=== PATIENT | female | born 1985 | race Hispanic/Latino ===

== ENCOUNTER 2016-09-29 14:19 | Inpatient (IN) | payer MEDICAID, OTHER ==
[2016-09-29 14:20] VITALS: BMI 26.8
[2016-09-29 15:01] LABS: EOS # 0.2 K/uL (0.0-0.7); MEAN PLATELET VOLUME 9.5 fL (7.2-11.7); NRBC % 0.2 % (0.0-2.0)
[2016-09-29 15:05] LABS: BASO # 0.3 K/uL (0.0-0.2); EOS % 0.5 % (0.0-4.0); HEMATOCRIT 28.8 % (34.0-47.0); LYMPH # 2.9 K/uL (1.0-4.3); LYMPH % 8.4 % (20.0-40.0); MEAN CORPUSCULAR HEMOGLOBIN 32.8 pg (27.0-31.0); MEAN CORPUSCULAR HGB CONC 30.4 g/dL (33.0-37.0); MONO # 1.1 K/uL (0.0-0.8); MONO % 3.2 % (0.0-10.0); RED CELL DISTRIBUTION WIDTH 23.2 % (11.5-14.5)
[2016-09-29 15:09] LABS: CHLORIDE 99 mmol/L (98-107); SODIUM 139 mmol/L (132-148)
[2016-09-29 15:10] LABS: INR 1.6
[2016-09-29 15:11] LABS: MEAN CELL VOLUME 107.7 fL (81.0-99.0); PLATELET COUNT 442 K/uL (130-400)
[2016-09-29 15:12] LABS: ALB/GLOB RATIO 0.7 (1.0-2.1); ALKALINE PHOSPHATASE 134 U/L (38-126); ALT/SGPT 49 U/L (9-52); AST/SGOT 220 U/L (14-36); BILIRUBIN,TOTAL 11.8 mg/dL (0.2-1.3); BLOOD UREA NITROGEN 6 mg/dL (7-17); CARBON DIOXIDE 28 mmol/L (22-30); GFR AFRICAN-AMERICAN > 60; GLUCOSE,RANDOM 86 mg/dL (65-105); TOTAL PROTEIN 7.5 g/dL (6.3-8.3)
[2016-09-29 15:13] LABS: CALCIUM 8.3 mg/dl (8.6-10.4)
[2016-09-29 15:15] LABS: POTASSIUM 4.3 mmol/L (3.6-5.2)
[2016-09-29 15:32] LABS: BASOPHIL 1 % (0-2); NEUTROPHIL 67 % (50-75); TOTAL CELLS COUNTED 100
[2016-09-29 15:34] LABS: LARGE PLATELETS PRESENT
[2016-09-29 15:35] LABS: GIANT PLATELETS PRESENT
[2016-09-29] MEDS ORDERED: cefTRIAXone IV 1 gm in Dextros 50 ML IV ONE (15:35)
--- NOTE | 2016-09-29 15:43 | C.PDOC ---
History Of Present Illness 31 year old female is brought into the ED by her family due to altered mental status and appearing icteric for the past day. Patient was [place] with alcoholic liver [place] 3 [place] ago [place] [facility] [place] was taken to the [place] overnight and left AMA the next morning for a court appearance however she was too stuporous to participate. Patient typically drinks 3/5 rum daily and lost her 10 year old daughter 8 months ago due to her alcohol abuse. 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 Time Seen by Provider: 09/29/16 14:51 Chief Complaint (Nursing): Abdominal Pain History Per: EMS, Family History/Exam Limitations: clinical condition Onset/Duration Of Symptoms: Days Current Symptoms Are (Timing): Still Present Severity: Mild Past Medical History Reviewed: Historical Data, Nursing Documentation, Vital Signs Vital Signs: Last Vital Signs Temp 98 F 09/29/16 20:00 Pulse 105 H 09/29/16 19:36 Resp 16 09/29/16 19:36 BP 136/72 09/29/16 19:36 Pulse Ox 92 L 09/29/16 21:06 - Medical History PMH: Anxiety, Asthma, HTN, Seizures - [facility] Procedures DETOXIFICATION SERVICES FOR SUBSTANCE ABUSE TREATMENT (11/09/15) Family History: States: Unknown Family Hx - Social History Hx Alcohol Use: No Hx Substance Use: No - Immunization History Hx Tetanus Toxoid Vaccination: No Hx Influenza Vaccination: No Hx Pneumococcal Vaccination: No Review Of Systems Review Of Systems: ROS cannot be obtained secondary to pt's inabilty to answer questions. (ROS limited secondary to patient's clinical condition) Physical Exam - Physical Exam Appears: Confused, Other (+Morbidly obese) Skin: Warm, Dry, Jaundice Head: Atraumatic, Normacephalic Eye(s): bilateral: PERRL, EOMI, Scleral Icterus Oral Mucosa: Moist Chest: Symmetrical, No Deformity Cardiovascular: Rhythm Regular, No Murmur Respiratory: Normal Breath Sounds, No Accessory Muscle Use Gastrointestinal/Abdominal: No Tenderness, Distention, No Guarding, No Rebound, Other (+Globus abdomen) Extremity: Normal ROM, Pedal Edema (4/4 pitting edema), No Deformity ED Course And Treatment - Laboratory Results Result Diagrams: 09/29/16 14:58 09/29/16 14:58 Lab Interpretation: Abnormal (tox + benzo's, significant anemia and leukocytosis , and bandemia 20 H) Urine POC: Negative O2 Sat by Pulse Oximetry: 92 (O2 nasal cannula) Pulse Ox Interpretation: Abnormal - Radiology CXR: Interpreted by Me CXR Interpretation: Yes: Other (+ CHF) - Other Rad ct head X-Ray: Read By Radiologist (no acute findings) CT Abd/Pelvis X-Ray: Read By Radiologist (Hepatosplenomegaly. Small right pleural effusion. Mild ascites. Mild nonspecific thickening of gallbladder wall. No calcified gallstones. Minimal anterior wedge compression deformity of the T9 vertebra, age indeterminate.) Progress Note: CT ABD & Pelvis w/contrast, CT Head w/o contrast, EKG, CXR, Blood work, and Urinalysis ordered and reviewed. Patient treated with Enulose, Lasix, Rocephine, and Precedex. Reevaluation Time: 17:31 Reassessment Condition: Unchanged - Physician Consult Information Outcome Of Conversation: 1600: d/w Dr. Cardenas- ICU Consult- agrees with Precedex and hold IV fluids. 1800: d/w Dr. Woods- Medicine Cook Dessert- ok to ICU Medical Decision Making Medical Decision Making: Liver failure/hepatic encephalopathy, Ammonia 66 H, lactulose started, low protein diet, frrequent falls, head CT neg, CT Abd/pelvis with significant hepato/splenomegaly and ascites. Alcohol withdrawal- usually 3 FIFTHS of rum daily, stopped 3 wks ago, LFT's low/ norm, Precedex/Dexmedetomadine started Benzo abuse- h/o same. tox + benzo's (Precedex is NOT a benzo to give + tox for benzo's) Suspect SBP; WBC's 34K, 20 bands, blood cult and Rocephin 2 g IV started CHF: CHF on films, pitting edema of legs, lasix 20 IV, follow diuresis Anemia- macrocytic consider chronic GI bleed- Type and Screen ordered, PPI's Disposition Doctor Will See Patient In The: Hospital Counseled Patient/Family Regarding: Studies Performed, Diagnosis - Disposition Disposition: HOSPITALIZED Disposition Time: 17:00 Condition: SERIOUS - POA Core Measure Indicators: Code Sepsis - Clinical Impression Clinical Impression: Alcohol dependence, Benzodiazepine abuse, Hepatic encephalopathy, CHF ( congestive heart failure), Liver failure, Sepsis, Icterus - Scribe Statement The provider has reviewed the documentation as recorded by the Scribe Ysteena Nasralah. Provider Attestation: All medical record entries made by the Scribe were at my direction and personally dictated by me. I have reviewed the chart and agree that the record accurately reflects my personal performance of the history, physical exam, medical decision making, and the department course for this patient. I have also personally directed, reviewed, and agree with the discharge instructions and disposition.
[2016-09-29] MEDS ORDERED: Sodium Chloride 0.9% 1,000 ML ONE (15:46)
[2016-09-29] MEDS ORDERED: cefTRIAXone IV 1 gm in Dextros 100 ML IVPB ONE (15:46)
--- NOTE | 2016-09-29 16:13 | RAD ---
PROCEDURE: CHEST RADIOGRAPH, 1 VIEW HISTORY: Abdominal pain COMPARISON: None available. FINDINGS: LUNGS: The lungs are clear. PLEURA: No pneumothorax or pleural fluid seen. CARDIOVASCULAR: Normal. OSSEOUS STRUCTURES: No significant abnormalities. VISUALIZED UPPER ABDOMEN: Normal. OTHER FINDINGS: None. IMPRESSION: No active pulmonary disease.
[2016-09-29 16:15] LABS: BILIRUBIN,DIRECT 9.5 mg/dL (0.0-0.4)
[2016-09-29 16:15] LABS: VENOUS BLOOD GAS BASE EXCESS 5.8 mmol/L (0.0-2.0); VENOUS BLOOD GAS PCO2 44 mmHg (40-60); VENOUS BLOOD PH 7.45 (7.32-7.43)
[2016-09-29 16:16] LABS: ALCOHOL SERUM < 10 mg/dl (0-10)
[2016-09-29 16:49] LABS: RBC URINE < 1 /hpf (0-3); URINE BACTERIA RARE (<OCC); URINE BILIRUBIN NEGATIVE (NEGATIVE); URINE BLOOD NEGATIVE (NEGATIVE); URINE COLOR Amber (YELLOW); URINE GLUCOSE (UA) NORMAL (Normal); URINE KETONE NEGATIVE (NEGATIVE); URINE PROTEIN NEGATIVE (NEGATIVE); WBC URINE 4 /hpf (0-5)
[2016-09-29] MEDS: Dexmedetomidine Hydrochloride 200 MCG in Sodium Chloride 0.9% 48 ML IVPB PRN ×2 (16:50→22:30)
[2016-09-29 16:51] LABS: URINE LEUKOCYTE ESTERASE NEGATIVE Leu/uL (Negative)
[2016-09-29] MEDS ORDERED: Iohexol 350mg/ml 100 ML ONE (17:10)
--- NOTE | 2016-09-29 17:18 | CT ---
PROCEDURE: CT HEAD WITHOUT CONTRAST. HISTORY: obtunded, alcoholic, ? SDH/EDH/CVA COMPARISON: None available. TECHNIQUE: Axial computed tomography images were obtained through the head/brain without intravenous contrast. This CT exam was performed using one or more of the following dose reduction techniques: Automated exposure control, adjustment of the mA and/or kV according to patient size, and/or use of iterative reconstruction technique. Radiation dose: Total exam DLP = 863 mGy-cm. FINDINGS: HEMORRHAGE: No intracranial hemorrhage. BRAIN: No mass effect or edema. No atrophy or chronic microvascular ischemic changes. VENTRICLES: Unremarkable. No hydrocephalus. CALVARIUM: Unremarkable. PARANASAL SINUSES: Unremarkable as visualized. No significant inflammatory changes. MASTOID AIR CELLS: Unremarkable as visualized. No inflammatory changes. OTHER FINDINGS: None. IMPRESSION: Normal CT of the Head.
--- NOTE | 2016-09-29 17:29 | CT ---
PROCEDURE: CT Abdomen and Pelvis with contrast HISTORY: alcohol abuse, icteric, ? ascites, ? biliary COMPARISON: None. TECHNIQUE: Contrast dose: 100 mL Visipaque 320 Radiation dose: Total exam DLP = 1199.45 mGy-cm. This CT exam was performed using 1 or more of the following dose reduction techniques: Automated exposure control, adjustment of the mA and/or kV according to patient size, and/or use of iterative reconstruction technique. FINDINGS: LOWER THORAX: Small right pleural effusion. No infiltrate. LIVER: Marked hepatomegaly. The liver measures approximately 33 cm craniocaudal. Diffusely diminished attenuation. No mass. No biliary ductal dilatation. Smooth contour. GALLBLADDER AND BILE DUCTS: Mild nonspecific mural thickening. No calcified gallstones. PANCREAS: Unremarkable. No gross lesion or ductal dilatation. SPLEEN: Splenomegaly. The spleen measures 19.3 cm in greatest dimension. No focal mass. ADRENALS: Unremarkable. No mass. KIDNEYS AND URETERS: Unremarkable. No hydronephrosis. No solid mass. VASCULATURE: Unremarkable. No aortic aneurysm. BOWEL: Unremarkable. No obstruction. No gross mural thickening. APPENDIX: Not identified. No secondary findings to suggest acute appendicitis. PERITONEUM: Mild ascites. LYMPH NODES: Unremarkable. No enlarged lymph nodes. BLADDER: Unremarkable. REPRODUCTIVE: Unremarkable uterus. No adnexal masses. BONES: Minimal anterior wedge compression deformity of the T9 vertebra, age indeterminate. No paraspinous hemorrhage. No bony retropulsion. OTHER FINDINGS: None. IMPRESSION: Hepatosplenomegaly. Small right pleural effusion. Mild ascites. Mild nonspecific thickening of gallbladder wall. No calcified gallstones. Minimal anterior wedge compression deformity of the T9 vertebra, age indeterminate.
[2016-09-29] MEDS: Sodium Chloride 0.9% 1,000 ML IV SCH (17:56)
[2016-09-29] MEDS: Piperacill/Tazo 3.375gm in Dex 50 ML IVPB SCH ×2 (17:56→22:05)
--- NOTE | 2016-09-29 19:05 | CP.PCM.CON ---
History of Present Illness - History of Present Illness History of Present Illness: Patient seen and examined in ER. History obtained form ER physician, family members are very poor historian and they look very anxious, patient is awake and answers some simple questions, but I am not able to understand all she says. As per family she came for detox and they noticed yesterday to be yellow. ros: unable NKDA FH: not relevant for the case PMH: anxiety, asthma, htn as per chart pe: bp 126/72 mmhg, hr 105 bpm, rr 19 bpm, o2 96% on ra, afebrile awake, disoriented, hallucinating, need constant reminding s1. s2 rrr lungs clear bilateral abdomen global, non tender on exam skin icteric neuro exam difficult to do, but able to move all extremities with out difficulty a/p: acute cholecystitis: wbc increased and positive bands, cover with zosyn, spoke to gi, scan of abdomen done, minimal ascitis, elevated bilirrubin level cirrhosis: not previously diagnosis, hepatitis panel encephalopathy: lactulose q4h hydrate gently alcoholism: denies drinking for the past month, give precedex since she is hallucinating and agitated at times urine retention: erwin inserted Past Patient History - Infectious Disease Hx of Infectious Diseases: None - Past Medical History & Family History Past Medical History?: Yes - Past Social History Smoking Status: Never Smoked - CARDIAC Hx Hypertension: Yes - PULMONARY Hx Asthma: Yes - NEUROLOGICAL Hx Seizures: Yes - HEMATOLOGICAL/ONCOLOGICAL Hx Human Immunodeficiency Virus (HIV): No - INTEGUMENTARY Hx Eczema: Yes - MUSCULOSKELETAL/RHEUMATOLOGICAL Hx Falls: No - GASTROINTESTINAL Hx Liver Failure: (liver problems) - GENITOURINARY/GYNECOLOGICAL Hx Sexually Transmitted Disorders: No - PSYCHIATRIC Hx Anxiety: Yes Hx Substance Use: No - SURGICAL HISTORY Hx Surgeries: Yes Hx Orthopedic Surgery: Yes - ANESTHESIA Hx Anesthesia: Yes Hx Anesthesia Reactions: No Hx Malignant Hyperthermia: No Meds Allergies/Adverse Reactions: Allergies Allergy/AdvReac Type Severity Reaction Status Date / Time No Known Allergies Allergy Verified 11/09/15 13:46 - Medications Medications: Current Medications Heparin Sodium (Porcine) (Heparin) 5,000 units SC Q8 [facility] Dexmedetomidine HCl 200 mcg/ (Sodium Chloride) 50 mls @ 4.76 mls/hr IVPB TITR PRN; Protocol; 0.2 MCG/KG/HR PRN Reason: Agitation Last Admin: 09/29/16 16:50 Dose: 4.76 mls/hr Sodium Chloride (Sodium Chloride 0.9%) 1,000 mls @ 75 mls/hr IV .[id number] [facility] Last Admin: 09/29/16 17:56 Dose: 75 mls/hr Piperacillin Sod/Tazobactam Sod (Zosyn 3.375 Gm Iv Premix) 50 mls @ 100 mls/hr IVPB Q6H [facility] Last Admin: 09/29/16 17:56 Dose: 100 mls/hr Lactulose (Enulose) 20 gm PO Q4H [facility] Last Admin: 09/29/16 17:55 Dose: 20 gm Results - Vital Signs Recent Vital Signs: Last Vital Signs Temp 99 F 09/29/16 14:23 Pulse 113 H 09/29/16 16:23 Resp 22 09/29/16 16:23 BP 133/68 09/29/16 16:23 Pulse Ox 92 L 09/29/16 18:01 - Labs Result Diagrams: 09/29/16 14:58 09/29/16 14:58
[2016-09-30] MEDS: Dexmedetomidine Hydrochloride 200 MCG in Sodium Chloride 0.9% 48 ML IVPB PRN ×4 (00:15→17:29)
[2016-09-30] MEDS: Piperacill/Tazo 3.375gm in Dex 50 ML IVPB SCH ×3 (05:55→16:50)
[2016-09-30 07:12] LABS: BASO # 0.3 K/uL (0.0-0.2); BASO % 1.1 % (0.0-2.0); EOS # 0.2 K/uL (0.0-0.7); EOS % 0.8 % (0.0-4.0); HEMATOCRIT 26.1 % (34.0-47.0); LYMPH # 2.9 K/uL (1.0-4.3); LYMPH % 10.2 % (20.0-40.0); MEAN CELL VOLUME 108.5 fL (81.0-99.0); MEAN CORPUSCULAR HEMOGLOBIN 32.9 pg (27.0-31.0); MEAN CORPUSCULAR HGB CONC 30.3 g/dL (33.0-37.0); MEAN PLATELET VOLUME 9.9 fL (7.2-11.7); MONO # 0.7 K/uL (0.0-0.8); MONO % 2.5 % (0.0-10.0); NRBC % 0.2 % (0.0-2.0); PLATELET COUNT 394 K/uL (130-400); RED CELL DISTRIBUTION WIDTH 22.9 % (11.5-14.5); WHITE BLOOD COUNT 28.8 K/uL (4.8-10.8)
[2016-09-30] MEDS: Sodium Chloride 0.9% 1,000 ML IV SCH ×3 (08:06→20:42)
[2016-09-30 08:15] LABS: CHLORIDE 98 mmol/L (98-107)
[2016-09-30 08:16] LABS: POTASSIUM 3.7 mmol/L (3.6-5.2); SODIUM 140 mmol/L (132-148)
[2016-09-30 08:18] LABS: ALB/GLOB RATIO 0.8 (1.0-2.1); ALKALINE PHOSPHATASE 127 U/L (38-126); AST/SGOT 178 U/L (14-36); BILIRUBIN,TOTAL 11.2 mg/dL (0.2-1.3); CARBON DIOXIDE 28 mmol/L (22-30); GFR AFRICAN-AMERICAN > 60; TOTAL PROTEIN 6.4 g/dL (6.3-8.3)
[2016-09-30 08:19] LABS: ALT/SGPT 35 U/L (9-52); BLOOD UREA NITROGEN 9 mg/dL (7-17); CALCIUM 8.1 mg/dl (8.6-10.4); GLUCOSE,RANDOM 88 mg/dL (65-105); MAGNESIUM 1.9 mg/dL (1.6-2.3); PHOSPHOROUS 4.2 mg/dL (2.5-4.5)
[2016-09-30] MEDS ORDERED: Phytonadione 10 mg/ml Inj (Adult) IV STA (09:15)
--- NOTE | 2016-09-30 09:42 | CP.PCM.CON ---
<Mckenna Velasquez - Last Filed: 09/30/16 09:39> History of Present Illness - History of Present Illness History of Present Illness: Gastroenterology Fellow/PGY4 Consult Note 31 year old female with chart review documented history of Alcohol Abuse, Hypertension, Asthma, Anxiety, and possible Seizures presenting with altered mental status. History obtained from chart review and ICU team. At presented patient is obtunded on Precedex and recent Ativan administration due to agitation and restlessness overnight. Lactulose 40mg given with one incontinent stool. She is notes to present with severe leukocytosis, lactic acidosis, and bandemia. ICU team notes recent admission to [facility] [place] with similar presentation but patient left AMA. At present review of systems unable to be completes due to being obtunded. Unknown history of EGD or colonoscopy. Family- unable to obtain, patient obtunded Social-unable to obtain, patient obtunded- chart review- rum 3-4 times daily Surgery-unable to obtain, patient obtunded Review of Systems - Review of Systems Review of Systems: A 12-point review of systems not complete due to being obtunded Past Patient History - Infectious Disease Hx of Infectious Diseases: None - Past Medical History & Family History Past Medical History?: Yes - Past Social History Smoking Status: Never Smoked - CARDIAC Hx Hypertension: Yes - PULMONARY Hx Asthma: Yes - NEUROLOGICAL Hx Seizures: Yes - HEMATOLOGICAL/ONCOLOGICAL Hx Human Immunodeficiency Virus (HIV): No - INTEGUMENTARY Hx Eczema: Yes - MUSCULOSKELETAL/RHEUMATOLOGICAL Hx Falls: No - GASTROINTESTINAL Hx Liver Failure: (liver problems) - GENITOURINARY/GYNECOLOGICAL Hx Sexually Transmitted Disorders: No - PSYCHIATRIC Hx Anxiety: Yes Hx Substance Use: No - SURGICAL HISTORY Hx Surgeries: Yes Hx Orthopedic Surgery: Yes - ANESTHESIA Hx Anesthesia: Yes Hx Anesthesia Reactions: No Hx Malignant Hyperthermia: No Meds Allergies/Adverse Reactions: Allergies Allergy/AdvReac Type Severity Reaction Status Date / Time No Known Allergies Allergy Verified 11/09/15 13:46 - Medications Medications: Current Medications Dexmedetomidine HCl 200 mcg/ (Sodium Chloride) 50 mls @ 4.76 mls/hr IVPB TITR PRN; Protocol; 0.2 MCG/KG/HR PRN Reason: Agitation Last Titration: 09/30/16 07:20 Dose: 0.6 mcg/kg/hr Sodium Chloride (Sodium Chloride 0.9%) 1,000 mls @ 75 mls/hr IV .[id number] [facility] Last Admin: 09/30/16 08:06 Dose: Not Given Piperacillin Sod/Tazobactam Sod (Zosyn 3.375 Gm Iv Premix) 50 mls @ 100 mls/hr IVPB Q6H [facility] Last Admin: 09/30/16 05:55 Dose: 100 mls/hr Vancomycin/Sodium Chloride (Vancocin) 200 mls @ 133.333 mls/hr IVPB Q12H [facility] Stop: 10/05/16 10:01 Acetylcysteine 0.4 gm/ (Dextrose) 202 mls @ 200 mls/hr IV TID [facility] Lactulose (Enulose) 20 gm PO Q4H [facility] Last Admin: 09/30/16 09:09 Dose: Not Given Lactulose (Enulose) 200 gm WI Q4 [facility] Physical Exam - Constitutional Appears: Toxic, Other - Head Exam Head Exam: ATRAUMATIC, NORMOCEPHALIC - Eye Exam Eye Exam: PERRL, Scleral icterus Pupil Exam: PERRL - ENT Exam ENT Exam: Mucous Membranes Dry, Normal Oropharynx - Neck Exam Neck exam: Positive for: Normal Inspection - Respiratory Exam Respiratory Exam: Clear to Auscultation Bilateral. absent: Rales, Rhonchi, Wheezes - Cardiovascular Exam Cardiovascular Exam: RRR, +S1, +S2. absent: Gallop, Rubs - GI/Abdominal Exam GI & Abdominal Exam: Distended, Normal Bowel Sounds, Organomegaly, Soft. absent : Firm, Guarding, Hernia, Rebound Additional comments: hepatosplenomegaly - Extremities Exam Additional comments: 2+ B/L LE pitting edema - Neurological Exam Additional comments: not awake, alert, or oriented - Psychiatric Exam Additional comments: unable to assess, obtunded - Skin Skin Exam: Dry, Intact, Warm Additional comments: jaundice Results - Vital Signs Recent Vital Signs: Last Vital Signs Temp 98.3 F 09/30/16 08:00 Pulse 79 09/30/16 08:44 Resp 30 H 09/30/16 08:44 BP 103/46 L 09/30/16 07:57 Pulse Ox 99 09/30/16 08:44 - Labs Result Diagrams: 09/30/16 07:04 09/30/16 07:04 Labs: Laboratory Results - last 24 hr 09/30/16 07:04 WBC 28.8 H RBC 2.40 L Hgb 7.9 L Hct 26.1 L MCV 108.5 H MCH 32.9 H MCHC 30.3 L RDW 22.9 H Plt Count 394 MPV 9.9 Neut % (Auto) 85.4 H Lymph % (Auto) 10.2 L Ford % (Auto) 2.5 Eos % (Auto) 0.8 Baso % (Auto) 1.1 Neut # 24.6 H Lymph # 2.9 Ford # 0.7 Eos # 0.2 Baso # 0.3 H Sodium 140 Potassium 3.7 Chloride 98 Carbon Dioxide 28 Anion Gap 18 BUN 9 Creatinine 0.6 L Est GFR ( Amer) > 60 Est GFR (Non-Af Amer) > 60 Random Glucose 88 Calcium 8.1 L Phosphorus 4.2 Magnesium 1.9 Total Bilirubin 11.2 H AST 178 H ALT 35 Alkaline Phosphatase 127 H Total Protein 6.4 Albumin 2.8 L Globulin 3.6 Albumin/Globulin Ratio 0.8 L Assessment & Plan - Assessment and Plan (Free Text) Assessment: 31 year old female with chart review documented history of Alcohol Abuse, Hypertension, Asthma, Anxiety, and possible Seizures presenting with altered mental status. History obtained from chart review and ICU team. Active treatment of Alcoholic Hepatitis, sepsis with bandemia, severe leukocytosis, lactic acidosis, and metabolic encephalopathy. ICU team notes recent admission to [facility] [place] with similar presentation but patient left AMA. Unknown history of EGD or colonoscopy. Plan: >MELD 21, DF 53.2 >discussed case with [facility] >in process of assessing for bed availability for transfer- Dr. Schilling- Hepatology fellow -contact: [phone] >ordered Acetylcysteine 400mg IV TID -unclear if esophageal varices, will avoid NG/OG for enteral administration >continue Lactulose WI 200g to achieve 2 bowel movements daily >ordered Ultrasound and Duplex U/S -preliminary results- no ascites, hepatosplenomegaly >on Zosyn >recommend recheck U/A- purulent in [place] >pancultures-blood, urine, sputum >>recommend broad spectrum antibiotics >Steroids not indicated in setting of sepsis >ordered Hepatitis panel, CAROLYN, ASMA, AMA, ceruloplasmin >poor prognosis, critically ill, high risk of acute decompensation and >discussed with [facility] for transfer, at present evaluating bed availability for likely transfer <Aman Silver Y - Last Filed: 09/30/16 10:14> Meds - Medications Medications: Current Medications Dexmedetomidine HCl 200 mcg/ (Sodium Chloride) 50 mls @ 4.76 mls/hr IVPB TITR PRN; Protocol; 0.2 MCG/KG/HR PRN Reason: Agitation Last Titration: 09/30/16 07:20 Dose: 0.6 mcg/kg/hr Sodium Chloride (Sodium Chloride 0.9%) 1,000 mls @ 75 mls/hr IV .[id number] [facility] Last Admin: 09/30/16 08:06 Dose: Not Given Piperacillin Sod/Tazobactam Sod (Zosyn 3.375 Gm Iv Premix) 50 mls @ 100 mls/hr IVPB Q6H [facility] Last Admin: 09/30/16 05:55 Dose: 100 mls/hr Vancomycin/Sodium Chloride (Vancocin) 200 mls @ 133.333 mls/hr IVPB Q12H [facility] Stop: 10/05/16 10:01 Acetylcysteine 0.4 gm/ (Dextrose) 202 mls @ 200 mls/hr IV TID DAKSHA Phytonadione 10 mg/ Sodium (Chloride) 51 mls @ 153 mls/hr IV STAT STA Stop: 09/30/16 10:10 Lactulose (Enulose) 20 gm PO Q4H [facility] Last Admin: 09/30/16 09:09 Dose: Not Given Lactulose (Enulose) 200 gm [place] Q4 DAK[facility] Results - Vital Signs Recent Vital Signs: Last Vital Signs Temp 98.3 F 09/30/16 08:00 Pulse 79 09/30/16 08:44 Resp 30 H 09/30/16 08:44 BP 103/46 L 09/30/16 07:57 Pulse Ox 99 09/30/16 08:44 - Labs Result Diagrams: 09/30/16 07:04 09/30/16 07:04 Labs: Laboratory Results - last 24 hr 09/30/16 07:04 WBC 28.8 H RBC 2.40 L Hgb 7.9 L Hct 26.1 L MCV 108.5 H MCH 32.9 H MCHC 30.3 L RDW 22.9 H Plt Count 394 MPV 9.9 Neut % (Auto) 85.4 H Lymph % (Auto) 10.2 L Ford % (Auto) 2.5 Eos % (Auto) 0.8 Baso % (Auto) 1.1 Neut # 24.6 H Lymph # 2.9 Ford # 0.7 Eos # 0.2 Baso # 0.3 H Sodium 140 Potassium 3.7 Chloride 98 Carbon Dioxide 28 Anion Gap 18 BUN 9 Creatinine 0.6 L Est GFR ( Amer) > 60 Est GFR (Non-Af Amer) > 60 Random Glucose 88 Calcium 8.1 L Phosphorus 4.2 Magnesium 1.9 Total Bilirubin 11.2 H AST 178 H ALT 35 Alkaline Phosphatase 127 H Total Protein 6.4 Albumin 2.8 L Globulin 3.6 Albumin/Globulin Ratio 0.8 L Attending/Attestation - Attestation I have personally seen and examined this patient.: Yes I have fully participated in the care of the patient.: Yes I have reviewed all pertinent clinical information: Yes Notes (Text): 09/30/16 09:58 I have seen and examined patient with GI fellow. Agree with above documentation with the following additions. In brief, this is a 31 year old female with history of HTN, ETOH abuse, asthma, seizure disorder who presents to hospital with altered mental status. Currently patient in ICU critical care , sedated and unable to provide additional information. Further history obtained via chart review, discussion with nursing staff, and patient's family at bedside. She was apparently recently admitted to [facility] [place] for similar presentation and managed for acute ETOH related hepatitis, however she signed out AMA after not being given appropriate pain medication. She was complaining of generalized abdominal pain, there was no reported nausea, vomiting, diarrhea , fever/chills, weight loss. She reportedly consumes hard liquor daily, unclear regarding tylenol or herbal medication use. Unknown prior endoscopic history. ETOH abuse, acute hepatitis with admission MELD of 21 Hepatitis DF > 50 Altered mental status, encephalopathy HTN Asthma Seizure disorder - Patient with clinical features of acute liver failure, remains sedated in critical care - Consultation at tertiary care liver transplant center ([facility]) requested, awaiting decision for potential transfer - [place] culture blood, urine, stool - Would suggest broad spectrum antibiotic therapy and adding Vancomycin - Obtain viral hepatitis, autoimmune panel, and ceruloplasmin level - Suggest NGT placement and beginning enteral tube feeding as early nutritional support has been well shown to decrease mortality - Initiate NAC therapy - Monitor INR - Abdominal US reviewed by me showing patent portal vein, normal caliber CBD, BG wall thickening without cholelithiasis, +hepato/splenomegaly, trace ascites ( not sufficient amount for paracentesis) - Overall prognosis for patient is poor, will continue to monitor clinical course
[2016-09-30] MEDS ORDERED: Phytonadione 10 mg/ml Inj (Adult) IVPB STA (09:48)
[2016-09-30] MEDS ORDERED: Phytonadione 10 MG in Sodium Chloride 0.9% 50 ML IV STA (09:51)
--- NOTE | 2016-09-30 09:55 | US ---
HISTORY: evaluate for cirrhosis, ascites COMPARISON: Comparison is made to the previous CT of the abdomen dated 09/29/2016 TECHNIQUE: Sonographic evaluation of the abdomen. FINDINGS: LIVER: Measures 29.1 cm. Heterogeneous diffuse increased echogenicity of the liver parenchyma. No mass. No intrahepatic bile duct dilatation. GALLBLADDER: Diffuse gallbladder wall thickening is seen. There is a trace pericholecystic fluid. No evidence of gallstones. No sonographic Yeboah's sign elicited during the exam. COMMON BILE DUCT: Measures 2.7 mm. No stones. No dilatation. PANCREAS: The pancreas is not well visualized. RIGHT KIDNEY: Measures 12.7 x 4.8 x 6cm. Normal echogenicity. No calculus, mass, or hydronephrosis. LEFT KIDNEY: Measures 13.5 x 5.4 x 6.1cm. Normal echogenicity. No calculus, mass, or hydronephrosis. SPLEEN: Splenomegaly is also noted measures 17.8 centimeter. AORTA: No aneurysmal dilatation. IVC: Unremarkable. OTHER FINDINGS: Small amount of free fluid in the abdomen. IMPRESSION: Moderate hepato splenomegaly of uncertain etiology. Heterogeneous diffuse increased echogenicity of the liver which could be due to fatty infiltration or other parenchymal disease. Trace/small amount of ascites. Pancreas obscured by overlying bowel gas. Gallbladder wall thickening without evidence of cholelithiasis or definite evidence of acute cholecystitis.
[2016-09-30] MEDS ORDERED: cefTRIAXone IV 1 gm in Dextros 50 ML IVPB SCH (10:00)
[2016-09-30 10:14] LABS: RBC URINE 5 /hpf (0-3); URINE BACTERIA RARE (<OCC); URINE BILIRUBIN 2+ (NEGATIVE); URINE BLOOD NEGATIVE (NEGATIVE); URINE COLOR Amber (YELLOW); URINE GLUCOSE (UA) NORMAL (Normal); URINE KETONE NEGATIVE (NEGATIVE); URINE LEUKOCYTE ESTERASE NEG Leu/uL (Negative); URINE PROTEIN 1+ mg/dL (NEGATIVE); WBC URINE 8 /hpf (0-5)
[2016-09-30] MEDS: Vancomycin 1 gm/NS 200 ml 200 ML IVPB SCH ×2 (10:24→21:00)
[2016-09-30] MEDS: WATER IV SCH ×3 (11:09→17:30)
[2016-09-30] MEDS: ACETYLCYSTEINE IV SCH ×3 (11:09→17:30)
[2016-09-30] MEDS: DEXTROSE 5% IV SCH ×3 (11:09→17:30)
[2016-09-30 11:14] LABS: INR 1.6
[2016-09-30 11:21] LABS: BASOPHIL 1 % (0-2); METAMYELOCYTE 2 % (0-0); MYELOCYTE 2 % (0-0); NEUTROPHIL 68 % (50-75); TOTAL CELLS COUNTED 100
[2016-09-30 11:22] LABS: SPHEROCYTES SLIGHT
--- NOTE | 2016-09-30 15:55 | CP.CCUPN ---
CCU Subjective - Physician Review Events Since Last Encounter (Free Text): 09/30/16 15:39 Patient seen and examined in the intensive care unit. Chart reviewed and previous events noted. 31 year old female with documented history of Alcohol Abuse, Hypertension, Asthma, Anxiety, and possible Seizures presenting with altered mental status. patient is obtunded on Precedex and recent Ativan administration due to agitation and restlessness overnight. No further information available. CCU Objective - Vital Signs / Intake & Output Vital Signs (Last 4 hours): Vital Signs Temp Pulse Resp BP Pulse Ox 09/30/16 14:00 83 31 H 98 09/30/16 13:58 84 33 H 121/52 L 98 09/30/16 13:25 85 31 H 97 09/30/16 13:08 88 36 H 125/64 96 09/30/16 13:00 88 33 H 99 09/30/16 12:00 98.5 F 84 35 H 97 09/30/16 11:58 85 38 H 98/43 L 99 Intake and Output (Last 8hrs): Intake & Output 09/30/16 09/30/16 09/30/16 06:59 14:59 22:59 Intake Total 734.4 1492.8 Output Total 400 215 Balance 334.4 1277.8 Weight 211 lb 4.8 oz Intake: Intake, IV Amount 734.4 1392.8 Right Forearm 159.4 92.8 Left Antecubital 575 600 Left Hand 450 Right Hand 250 Oral 100 Output: Urine 400 215 Urethral (Hull) 400 215 Other: # Bowel Movements 1 - Physical Exam Head: Positive for: Atraumatic, Normocephalic Conjunctiva: Positive for: Icteric Mouth: Positive for: Moist Mucous Membranes Neck: Positive for: Trachea Midline Respiratory/Chest: Positive for: Clear to Auscultation Cardiovascular: Positive for: Regular Rate and Rhythm Abdomen: Positive for: Distention, Normal Bowel Sounds Lower Extremity: Positive for: Edema Psychiatric: Positive for: Other (Sedated on Precedex) - Medications Active Medications: Active Medications Generic Name Dose Route Start Last Admin Trade Name Freq PRN Reason Stop Dose Admin Dexmedetomidine HCl 200 mcg/ 50 mls @ 4.76 mls/hr 09/29/16 16:30 09/30/16 11:07 Sodium Chloride IVPB 7.14 mls/hr TITR PRN Administration Agitation Protocol 0.2 MCG/KG/HR Sodium Chloride 1,000 mls @ 75 mls/hr 09/29/16 17:00 09/30/16 11:08 Sodium Chloride 0.9% IV 75 mls/hr .[id number] DAKSHA Administration Piperacillin Sod/Tazobactam Sod 50 mls @ 100 mls/hr 09/29/16 17:00 09/30/16 11: 50 Zosyn 3.375 Gm Iv Premix IVPB 100 mls/hr Q6H DAKSHA Administration Vancomycin/Sodium Chloride 200 mls @ 133.333 mls/hr 09/30/16 10:00 09/30/16 10: 24 Vancocin IVPB 10/05/16 10:01 133.333 mls/hr Q12H DAKSHA Administration Acetylcysteine 0.4 gm/ 202 mls @ 200 mls/hr 09/30/16 10:00 09/30/16 13:55 Dextrose IV 200 mls/hr TID DAKSHA Administration Lactulose 20 gm 09/29/16 17:00 09/30/16 12:35 Enulose PO 20 gm Q4H DAKSHA Administration Lactulose 200 gm 09/30/16 12:00 09/30/16 12:35 Enulose AR Not Given Q4 DAKSHA - Patient Studies Lab Studies: Microbiology Studies 09/29/16 Unknown Urine Culture - Preliminary Urine,Random Gram Negative Pato Lab Studies 09/30/16 09/30/16 09/30/16 Range/Units 11:00 10:00 09:27 WBC (4.8-10.8) K/uL RBC (3.80-5.20) Mil/uL Hgb (11.0-16.0) g/dL Hct (34.0-47.0) % MCV (81.0-99.0) fL MCH (27.0-31.0) pg MCHC (33.0-37.0) g/dL RDW (11.5-14.5) % Plt Count (130-400) K/uL MPV (7.2-11.7) fL Neut % (Auto) (50.0-75.0) % Lymph % (Auto) (20.0-40.0) % Cross % (Auto) (0.0-10.0) % Eos % (Auto) (0.0-4.0) % Baso % (Auto) (0.0-2.0) % Neut # (1.8-7.0) K/uL Lymph # (1.0-4.3) K/uL Cross # (0.0-0.8) K/uL Eos # (0.0-0.7) K/uL Baso # (0.0-0.2) K/uL Neutrophils % (Manual) (50-75) % Band Neutrophils % (0-2) % Lymphocytes % (Manual) (20-40) % Monocytes % (Manual) (0-10) % Basophils % (Manual) (0-2) % Metamyelocytes % (0-0) % Myelocytes % (0-0) % Platelet Estimate (NORMAL) Polychromasia Hypochromasia (manual) Poikilocytosis (manual Anisocytosis (manual) Microcytosis (manual) Macrocytosis (manual) Spherocytes Target Cells Ovalocytes PT 18.5 H (9.7-12.2) SECONDS INR 1.6 Sodium (132-148) mmol/L Potassium (3.6-5.2) mmol/L Chloride (98-107) mmol/L Carbon Dioxide (22-30) mmol/L Anion Gap (10-20) BUN (7-17) mg/dL Creatinine (0.7-1.2) MG/DL Est GFR ( Amer) Est GFR (Non-Af Amer) Random Glucose (65-105) mg/dL Calcium (8.6-10.4) mg/dl Phosphorus (2.5-4.5) mg/dL Magnesium (1.6-2.3) mg/dL Total Bilirubin (0.2-1.3) mg/dL AST (14-36) U/L ALT (9-52) U/L Alkaline Phosphatase (38-126) U/L Total Protein (6.3-8.3) g/dL Albumin (3.5-5.0) g/dL Globulin (2.2-3.9) gm/dL Albumin/Globulin Ratio (1.0-2.1) Procalcitonin 0.59 H (0.19-0.49) NG/ML Urine Color Catia (YELLOW) Urine Clarity Hazy (Clear) Urine pH 5.0 (5.0-8.0) Ur Specific [place] 1.038 H (1.003-1.030) Urine Protein 1+ H (NEGATIVE) mg/dL Urine Glucose (UA) Normal (Normal) mg/dL Urine Ketones Negative (NEGATIVE) mg/dL Urine Blood Negative (NEGATIVE) Urine Nitrate Negative (NEGATIVE) Urine Bilirubin 2+ H (NEGATIVE) Urine Urobilinogen 4.0 H (0.2-1.0) mg/dL Ur Leukocyte Esterase Neg (Negative) Mariela/uL Urine WBC (Auto) 8 H (0-5) /hpf Urine RBC (Auto) 5 H (0-3) /hpf Ur Squamous Epith Cells < 1 (0-5) /hpf Urine Bacteria Rare (<OCC) Hepatitis A IgM Ab (NEGATIVE) Hep Bs Antigen (NEGATIVE) Hep B Core IgM Ab (NEGATIVE) Hepatitis C Antibody (NEGATIVE) 09/30/16 09/30/16 Range/Units 09:10 07:04 WBC 28.8 H (4.8-10.8) K/uL RBC 2.40 L (3.80-5.20) Mil/uL Hgb 7.9 L (11.0-16.0) g/dL Hct 26.1 L (34.0-47.0) % MCV 108.5 H (81.0-99.0) fL MCH 32.9 H (27.0-31.0) pg MCHC 30.3 L (33.0-37.0) g/dL RDW 22.9 H (11.5-14.5) % Plt Count 394 (130-400) K/uL MPV 9.9 (7.2-11.7) fL Neut % (Auto) 85.4 H (50.0-75.0) % Lymph % (Auto) 10.2 L (20.0-40.0) % Cross % (Auto) 2.5 (0.0-10.0) % Eos % (Auto) 0.8 (0.0-4.0) % Baso % (Auto) 1.1 (0.0-2.0) % Neut # 24.6 H (1.8-7.0) K/uL Lymph # 2.9 (1.0-4.3) K/uL Cross # 0.7 (0.0-0.8) K/uL Eos # 0.2 (0.0-0.7) K/uL Baso # 0.3 H (0.0-0.2) K/uL Neutrophils % (Manual) 68 (50-75) % Band Neutrophils % 18 H* (0-2) % Lymphocytes % (Manual) 6 L (20-40) % Monocytes % (Manual) 3 (0-10) % Basophils % (Manual) 1 (0-2) % Metamyelocytes % 2 H (0-0) % Myelocytes % 2 H (0-0) % Platelet Estimate Normal (NORMAL) Polychromasia Slight Hypochromasia (manual) Slight Poikilocytosis (manual Slight Anisocytosis (manual) Moderate Microcytosis (manual) Slight Macrocytosis (manual) Slight Spherocytes Slight Target Cells Slight Ovalocytes Slight PT (9.7-12.2) SECONDS INR Sodium 140 (132-148) mmol/L Potassium 3.7 (3.6-5.2) mmol/L Chloride 98 (98-107) mmol/L Carbon Dioxide 28 (22-30) mmol/L Anion Gap 18 (10-20) BUN 9 (7-17) mg/dL Creatinine 0.6 L (0.7-1.2) MG/DL Est GFR ( Amer) > 60 Est GFR (Non-Af Amer) > 60 Random Glucose 88 (65-105) mg/dL Calcium 8.1 L (8.6-10.4) mg/dl Phosphorus 4.2 (2.5-4.5) mg/dL Magnesium 1.9 (1.6-2.3) mg/dL Total Bilirubin 11.2 H (0.2-1.3) mg/dL AST 178 H (14-36) U/L ALT 35 (9-52) U/L Alkaline Phosphatase 127 H (38-126) U/L Total Protein 6.4 (6.3-8.3) g/dL Albumin 2.8 L (3.5-5.0) g/dL Globulin 3.6 (2.2-3.9) gm/dL Albumin/Globulin Ratio 0.8 L (1.0-2.1) Procalcitonin (0.19-0.49) NG/ML Urine Color (YELLOW) Urine Clarity (Clear) Urine pH (5.0-8.0) Ur Specific [place] (1.003-1.030) Urine Protein (NEGATIVE) mg/dL Urine Glucose (UA) (Normal) mg/dL Urine Ketones (NEGATIVE) mg/dL Urine Blood (NEGATIVE) Urine Nitrate (NEGATIVE) Urine Bilirubin (NEGATIVE) Urine Urobilinogen (0.2-1.0) mg/dL Ur Leukocyte Esterase (Negative) Mariela/uL Urine WBC (Auto) (0-5) /hpf Urine RBC (Auto) (0-3) /hpf Ur Squamous Epith Cells (0-5) /hpf Urine Bacteria (<OCC) Hepatitis A IgM Ab Negative (NEGATIVE) Hep Bs Antigen Negative (NEGATIVE) Hep B Core IgM Ab Negative (NEGATIVE) Hepatitis C Antibody Negative (NEGATIVE) Laboratory Results - last 24 hr 09/30/16 09/30/16 09/30/16 07:04 09:10 09:27 WBC 28.8 H RBC 2.40 L Hgb 7.9 L Hct 26.1 L MCV 108.5 H MCH 32.9 H MCHC 30.3 L RDW 22.9 H Plt Count 394 MPV 9.9 Neut % (Auto) 85.4 H Lymph % (Auto) 10.2 L Cross % (Auto) 2.5 Eos % (Auto) 0.8 Baso % (Auto) 1.1 Neut # 24.6 H Lymph # 2.9 Cross # 0.7 Eos # 0.2 Baso # 0.3 H Neutrophils % (Manual) 68 Band Neutrophils % 18 H* Lymphocytes % (Manual) 6 L Monocytes % (Manual) 3 Basophils % (Manual) 1 Metamyelocytes % 2 H Myelocytes % 2 H Platelet Estimate Normal Polychromasia Slight Hypochromasia (manual) Slight Poikilocytosis (manual Slight Anisocytosis (manual) Moderate Microcytosis (manual) Slight Macrocytosis (manual) Slight Spherocytes Slight Target Cells Slight Ovalocytes Slight PT INR Sodium 140 Potassium 3.7 Chloride 98 Carbon Dioxide 28 Anion Gap 18 BUN 9 Creatinine 0.6 L Est GFR ( Amer) > 60 Est GFR (Non-Af Amer) > 60 Random Glucose 88 Calcium 8.1 L Phosphorus 4.2 Magnesium 1.9 Total Bilirubin 11.2 H AST 178 H ALT 35 Alkaline Phosphatase 127 H Total Protein 6.4 Albumin 2.8 L Globulin 3.6 Albumin/Globulin Ratio 0.8 L Procalcitonin 0.59 H Urine Color Urine Clarity Urine pH Ur Specific [place] Urine Protein Urine Glucose (UA) Urine Ketones Urine Blood Urine Nitrate Urine Bilirubin Urine Urobilinogen Ur Leukocyte Esterase Urine WBC (Auto) Urine RBC (Auto) Ur Squamous Epith Cells Urine Bacteria Hepatitis A IgM Ab Negative Hep Bs Antigen Negative Hep B Core IgM Ab Negative Hepatitis C Antibody Negative 09/30/16 09/30/16 10:00 11:00 WBC RBC Hgb Hct MCV MCH MCHC RDW Plt Count MPV Neut % (Auto) Lymph % (Auto) Cross % (Auto) Eos % (Auto) Baso % (Auto) Neut # Lymph # Cross # Eos # Baso # Neutrophils % (Manual) Band Neutrophils % Lymphocytes % (Manual) Monocytes % (Manual) Basophils % (Manual) Metamyelocytes % Myelocytes % Platelet Estimate Polychromasia Hypochromasia (manual) Poikilocytosis (manual Anisocytosis (manual) Microcytosis (manual) Macrocytosis (manual) Spherocytes Target Cells Ovalocytes PT 18.5 H INR 1.6 Sodium Potassium Chloride Carbon Dioxide Anion Gap BUN Creatinine Est GFR ( Amer) Est GFR (Non-Af Amer) Random Glucose Calcium Phosphorus Magnesium Total Bilirubin AST ALT Alkaline Phosphatase Total Protein Albumin Globulin Albumin/Globulin Ratio Procalcitonin Urine Color Catia Urine Clarity Hazy Urine pH 5.0 Ur Specific [place] 1.038 H Urine Protein 1+ H Urine Glucose (UA) Normal Urine Ketones Negative Urine Blood Negative Urine Nitrate Negative Urine Bilirubin 2+ H Urine Urobilinogen 4.0 H Ur Leukocyte Esterase Neg Urine WBC (Auto) 8 H Urine RBC (Auto) 5 H Ur Squamous Epith Cells < 1 Urine Bacteria Rare Hepatitis A IgM Ab Hep Bs Antigen Hep B Core IgM Ab Hepatitis C Antibody EKG/Cardiology Studies: Cardiology / EKG Studies 09/29/16 17:08 EKG [ELECTROCARDIOGRAM] Stat Comment: ED 6 Mode Of Transportation: STRETCHER Reason For Exam: adm Review of Systems - Review of Systems Systems not reviewed;Unavailable: Other (Sedated on Precedex) Assessment/Plan (1) Liver failure Current Visit: Yes Status: Acute Comment: Patient with clinical features of acute liver failure, remains sedated in critical care Consultation at [facility] ([facility]) requested, awaiting decision for potential transfer Broad-spectrum antibiotics Casas cultures Hepatitis profile Prognosis poor (2) Alcohol dependence Current Visit: Yes Status: Acute (3) Hepatic encephalopathy Current Visit: Yes Status: Acute (4) Sepsis Current Visit: Yes Status: Acute
[2016-10-01] MEDS: Sodium Chloride 0.9% 1,000 ML IV SCH ×2 (01:08→09:00)
[2016-10-01] MEDS: Dexmedetomidine Hydrochloride 200 MCG in Sodium Chloride 0.9% 48 ML IVPB PRN ×2 (03:15→06:00)
[2016-10-01] MEDS: Piperacill/Tazo 3.375gm in Dex 50 ML IVPB SCH ×2 (04:05)
[2016-10-01 06:41] LABS: BASO # 0.3 K/uL (0.0-0.2); BASO % 0.9 % (0.0-2.0); EOS # 0.3 K/uL (0.0-0.7); HEMATOCRIT 27.2 % (34.0-47.0); LYMPH # 2.1 K/uL (1.0-4.3); LYMPH % 6.7 % (20.0-40.0); MEAN CELL VOLUME 108.9 fL (81.0-99.0); MEAN CORPUSCULAR HEMOGLOBIN 32.6 pg (27.0-31.0); MEAN PLATELET VOLUME 9.6 fL (7.2-11.7); MONO # 1.2 K/uL (0.0-0.8); MONO % 3.9 % (0.0-10.0); NRBC % 0.1 % (0.0-2.0); PLATELET COUNT 432 K/uL (130-400); RED CELL DISTRIBUTION WIDTH 22.5 % (11.5-14.5); WHITE BLOOD COUNT 31.6 K/uL (4.8-10.8)
[2016-10-01 06:51] LABS: CHLORIDE 107 mmol/L (98-107)
[2016-10-01 06:52] LABS: POTASSIUM 3.5 mmol/L (3.6-5.2); SODIUM 145 mmol/L (132-148)
[2016-10-01 06:54] LABS: ALB/GLOB RATIO 0.7 (1.0-2.1); ALKALINE PHOSPHATASE 121 U/L (38-126); ALT/SGPT 50 U/L (9-52); AST/SGOT 204 U/L (14-36); BILIRUBIN,TOTAL 12.4 mg/dL (0.2-1.3); BLOOD UREA NITROGEN 11 mg/dL (7-17); CARBON DIOXIDE 27 mmol/L (22-30); GFR AFRICAN-AMERICAN > 60; GLUCOSE,RANDOM 107 mg/dL (65-105); PHOSPHOROUS 2.8 mg/dL (2.5-4.5); TOTAL PROTEIN 6.8 g/dL (6.3-8.3)
[2016-10-01 06:55] LABS: CALCIUM 8.1 mg/dl (8.6-10.4); MAGNESIUM 2.1 mg/dL (1.6-2.3)
--- NOTE | 2016-10-01 07:13 | CP.PCM.PN ---
<Mckenna Velasquez - Last Filed: 10/01/16 08:41> Subjective - Date & Time of Evaluation Date of Evaluation: 10/01/16 Time of Evaluation: 07:08 - Subjective Subjective: Gastroenterology Fellow/PGY4 Progress Note Patient with improving mental status. Oriented to person only but attempting immediate response to all questioning. Nursing reports less agitation withPrecedex titrated to very low dose overnight. Patient received three doses of Lactulose in last 24 hours with reported three bowel movements. A 12-point review of systems limited due to altered mental status. Objective - Vital Signs/Intake and Output Vital Signs (last 24 hours): Temp Pulse Resp BP Pulse Ox 98.9 F 89 42 H 114/55 L 96 10/01/16 04:00 10/01/16 05:00 10/01/16 05:00 10/01/16 04:58 10/01/16 05:00 Intake and Output: 10/01/16 10/01/16 06:59 18:59 Intake Total 1371.9 Output Total 320 Balance 1051.9 - Medications Medications: Current Medications Dexmedetomidine HCl 200 mcg/ (Sodium Chloride) 50 mls @ 4.76 mls/hr IVPB TITR PRN; Protocol; 0.2 MCG/KG/HR PRN Reason: Agitation Last Admin: 10/01/16 03:15 Dose: 7.14 mls/hr Sodium Chloride (Sodium Chloride 0.9%) 1,000 mls @ 75 mls/hr IV .[id number] [facility] Last Admin: 10/01/16 01:08 Dose: 75 mls/hr Piperacillin Sod/Tazobactam Sod (Zosyn 3.375 Gm Iv Premix) 50 mls @ 100 mls/hr IVPB Q6H [facility] Last Admin: 10/01/16 04:05 Dose: 100 mls/hr Vancomycin/Sodium Chloride (Vancocin) 200 mls @ 133.333 mls/hr IVPB Q12H [facility] Stop: 10/05/16 10:01 Last Admin: 09/30/16 21:00 Dose: 133.333 mls/hr Acetylcysteine 0.4 gm/ (Dextrose) 202 mls @ 200 mls/hr IV TID [facility] Last Admin: 09/30/16 17:30 Dose: 200 mls/hr Lactulose (Enulose) 20 gm PO Q4H [facility] Last Admin: 10/01/16 04:04 Dose: 20 gm Lactulose (Enulose) 200 gm AK Q4 [facility] Last Admin: 10/01/16 04:06 Dose: Not Given - Labs Labs: 10/01/16 06:37 10/01/16 06:37 PT 18.5 SECONDS (9.7-12.2) H 09/30/16 11:00 INR 1.6 09/30/16 11:00 APTT 43 SECONDS (21-34) H 09/29/16 14:58 - Constitutional Appears: Toxic, No Acute Distress - Head Exam Head Exam: ATRAUMATIC, NORMOCEPHALIC - Eye Exam Eye Exam: EOMI, PERRL, Scleral icterus Pupil Exam: PERRL. absent: Miosis, Mydriatic - ENT Exam ENT Exam: Mucous Membranes Moist, Normal Oropharynx - Neck Exam Neck Exam: Normal Inspection - Respiratory Exam Respiratory Exam: Clear to Ausculation Bilateral. absent: Rales, Rhonchi, Wheezes - Cardiovascular Exam Cardiovascular Exam: RRR, +S1, +S2. absent: Gallop, Rubs - GI/Abdominal Exam GI & Abdominal Exam: Distended, Soft, Tenderness, Normal Bowel Sounds, Organomegaly. absent: Guarding, Rigid, Rebound - Extremities Exam Additional comments: 2+ B/L LE pitting edema - Neurological Exam Neurological Exam: Altered, Awake Additional comments: oriented to person only, not to place or time - Psychiatric Exam Psychiatric exam: Agitated, Flat Affect - Skin Skin Exam: Dry, Intact, Warm Additional comments: jaundice Assessment and Plan - Assessment and Plan (Free Text) Assessment: 31 year old female with chart review documented history of Alcohol Abuse, Hypertension, Asthma, Anxiety, and possible Seizures presenting with altered mental status. History obtained from chart review and ICU team. Active treatment of Alcoholic Hepatitis, sepsis with bandemia, severe leukocytosis, lactic acidosis, and metabolic encephalopathy. ICU team notes recent admission to [facility] with similar presentation but patient left AMA. Unknown history of EGD or colonoscopy. Plan: >MELD on admission 21, today- pending INR >DF on admission 53.2, today- pending INR >accepted to [facility]-awaiting transition to step down bed for transfer -contact: Dr. Schilling- Hepatology fellow [phone] >continue Acetylcysteine 400mg IV TID -decrease risk of severe infection and mortality >continue Lactulose PO or AK to achieve 2 bowel movements daily >Ultrasound- no ascites, hepatosplenomegaly -Duplex U/S requested to document patency of portal system >negative Hepatitis panel >pending CAROLYN, ASMA, AMA, ceruloplasmin >recommend initiate enteral feeding to decrease mortality >cultures: urine-GNR UTI, Blood- no growth 24 hours >on vancomycin/zosyn >poor prognosis, critically ill, high risk for decompensation, morbidity, and mortality >accepted to [facility], Hepatology fellow aware of initiation for step down transfer <Aman Silver - Last Filed: 10/01/16 09:34> Objective - Vital Signs/Intake and Output Vital Signs (last 24 hours): Temp Pulse Resp BP Pulse Ox 99.3 F 93 H 26 H 117/63 96 10/01/16 08:00 10/01/16 08:00 10/01/16 08:00 10/01/16 08:00 10/01/16 08:00 Intake and Output: 10/01/16 10/01/16 06:59 18:59 Intake Total 1461.2 171.5 Output Total 820 40 Balance 641.2 131.5 - Medications Medications: Current Medications Dexmedetomidine HCl 200 mcg/ (Sodium Chloride) 50 mls @ 4.76 mls/hr IVPB TITR PRN; Protocol; 0.2 MCG/KG/HR PRN Reason: Agitation Last Titration: 10/01/16 08:30 Dose: 0 mcg/kg/hr Sodium Chloride (Sodium Chloride 0.9%) 1,000 mls @ 75 mls/hr IV .[id number] [facility] Last Admin: 10/01/16 09:00 Dose: Not Given Vancomycin/Sodium Chloride (Vancocin) 200 mls @ 133.333 mls/hr IVPB Q12H [facility] Stop: 10/05/16 10:01 Last Admin: 09/30/16 21:00 Dose: 133.333 mls/hr Acetylcysteine 0.4 gm/ (Dextrose) 202 mls @ 200 mls/hr IV TID [facility] Last Admin: 09/30/16 17:30 Dose: 200 mls/hr Imipenem/Cilastatin Sodium 500 (mg/ Sodium Chloride) 100 mls @ 100 mls/hr IVPB Q6H [facility] Potassium Chloride (Potassium Chloride 10 Meq/100 Ml) 100 mls @ 100 mls/hr IVPB ONCE ONE Stop: 10/01/16 09:59 Last Admin: 10/01/16 09:11 Dose: 100 mls/hr Lactulose (Enulose) 20 gm PO Q4H DAKSHA Last Admin: 10/01/16 08:12 Dose: 20 gm Lactulose (Enulose) 200 gm AK Q4 DAKSHA Last Admin: 10/01/16 08:30 Dose: Not Given Lorazepam (Ativan) 0.5 mg IVP Q3H PRN PRN Reason: Anxiety - Labs Labs: 10/01/16 06:37 10/01/16 06:37 PT 18.5 SECONDS (9.7-12.2) H 09/30/16 11:00 INR 1.6 09/30/16 11:00 APTT 43 SECONDS (21-34) H 09/29/16 14:58 Attending/Attestation - Attestation I have personally seen and examined this patient.: Yes I have fully participated in the care of the patient.: Yes I have reviewed all pertinent clinical information, including history, physical exam and plan: Yes Notes (Text): 10/01/16 09:25 I have seen and examined patient with GI fellow. She remains in ICU critical care on precedex sedation which is being tapered off. She is drowsy and lethargic, though able to respond to simple commands. As per nursing staff, no reported abdominal pain, nausea, vomiting, fever/chills. She had three bowel movements over past 24 hours. Review of vitals from today show tachypnea. ETOH abuse HTN Asthma Acute liver failure, admission MELD 21 Sepsis - UTI - Continue with broad spectrum antibiotic therapy, follow blood and urine cultures - Awaiting repeat INR today - Continue with NAC for non-acetaminophen induced liver injury - Current contraindication for steroid initiation despite elevated DF, given severe sepsis - Continue with lactulose, titrated so patient has 3 bowel movements daily - Suggest initiation of enteral feeding as this has been shown to reduce mortality in current clinical situation - Abdominal US reviewed by me showing hepato/splenomegaly without presence of significant ascites, paracentesis not possible. Preliminary read shows patent portal vein. - Awaiting autoimmune panel, ceruloplasmin level - Patient has been accepted for transfer to [facility] liver service, currently awaiting bed assignment. Overall patient prognosis is poor, will continue to monitor patient clinical course.
[2016-10-01 08:42] LABS: EOSINOPHIL 3 % (0-4); NEUTROPHIL 72 % (50-75); TOTAL CELLS COUNTED 100
[2016-10-01 08:44] LABS: LARGE PLATELETS PRESENT; SPHEROCYTES SLIGHT
[2016-10-01] MEDS ORDERED: Potassium Chloride 10 mEq 100 ML IVPB ONE (09:00)
[2016-10-01] MEDS: Vancomycin 1 gm/NS 200 ml 200 ML IVPB SCH ×2 (10:14→21:34)
[2016-10-01] MEDS: WATER IV SCH ×3 (10:21→17:26)
[2016-10-01] MEDS: ACETYLCYSTEINE IV SCH ×3 (10:21→17:26)
[2016-10-01] MEDS: DEXTROSE 5% IV SCH ×3 (10:21→17:26)
[2016-10-01 10:55] LABS: INR 1.4
--- NOTE | 2016-10-01 19:06 | CP.CCUPN ---
CCU Subjective - Physician Review Events Since Last Encounter (Free Text): 10/01/16 19:04 Patient seen and examined in the intensive care unit. Case discussed with house staff and GI team in the morning. More alert and responsive No shortness of breath Awaiting transfer to tertiary care center Off Precedex drip urine culture positive for ESBL CCU Objective - Vital Signs / Intake & Output Vital Signs (Last 4 hours): Vital Signs Temp Pulse Resp BP Pulse Ox 10/01/16 18:17 101.8 F H 122 H 20 125/62 96 10/01/16 18:12 101.8 F H 10/01/16 15:16 99.4 F 110 H 20 111/74 97 Intake and Output (Last 8hrs): Intake & Output 10/01/16 10/01/16 10/01/16 06:59 14:59 22:59 Intake Total 872.8 1546.5 Output Total 600 270 Balance 272.8 1276.5 Weight 210 lb Intake: Intake, IV Amount 742.8 1371.5 Right Forearm 92.8 21.5 Left Antecubital 600 150 Left Hand 50 550 Right Hand 650 Oral 130 175 Output: Urine 400 270 Urethral (Hull) 400 270 Stool 200 Other: # Bowel Movements 1 2 - Physical Exam Head: Positive for: Atraumatic, Normocephalic Conjunctiva: Positive for: Icteric Mouth: Positive for: Moist Mucous Membranes Neck: Positive for: Trachea Midline Respiratory/Chest: Positive for: Clear to Auscultation Cardiovascular: Positive for: Regular Rate and Rhythm Abdomen: Positive for: Distention, Normal Bowel Sounds Lower Extremity: Positive for: Edema Psychiatric: Positive for: Alert, Other - Medications Active Medications: Active Medications Generic Name Dose Route Start Last Admin Trade Name Freq PRN Reason Stop Dose Admin Sodium Chloride 1,000 mls @ 75 mls/hr 09/29/16 17:00 10/01/16 09:00 Sodium Chloride 0.9% IV Not Given .[id number] DAKSHA Vancomycin/Sodium Chloride 200 mls @ 133.333 mls/hr 09/30/16 10:00 10/01/16 10: 14 Vancocin IVPB 10/05/16 10:01 133.333 mls/hr Q12H DAKSHA Administration Acetylcysteine 0.4 gm/ 202 mls @ 200 mls/hr 09/30/16 10:00 10/01/16 17:26 Dextrose IV 200 mls/hr TID DAKSHA Administration Imipenem/Cilastatin Sodium 500 100 mls @ 100 mls/hr 10/01/16 10:00 10/01/16 17: 25 mg/ Sodium Chloride IVPB 100 mls/hr Q6H DAKSHA Administration Ibuprofen 400 mg 10/01/16 18:49 Motrin Tab PO Q6H PRN Fever >100.4 F Lactulose 20 gm 09/29/16 17:00 10/01/16 17:25 Enulose PO 20 gm Q4H DAKSHA Administration Lactulose 200 gm 09/30/16 12:00 10/01/16 17:25 Enulose ND Not Given Q4 DAKSHA Lorazepam 0.5 mg 10/01/16 07:18 10/01/16 09:47 Ativan IVP 0.5 mg Q3H PRN Administration Anxiety Pantoprazole Sodium 40 mg 10/01/16 10:15 10/01/16 10:43 Protonix Inj IVP 40 mg DAILY DAKSHA Administration - Patient Studies Lab Studies: Microbiology Studies 09/29/16 Unknown MRSA Culture (Admit) - Final Nose MRSA NOT DETECTED 09/29/16 Unknown Urine Culture - Final Urine,Random Escherichia Coli Lab Studies 10/01/16 10/01/16 10/01/16 Range/Units 10:43 06:49 06:37 WBC 31.6 H (4.8-10.8) K/uL RBC 2.50 L (3.80-5.20) Mil/uL Hgb 8.2 L (11.0-16.0) g/dL Hct 27.2 L (34.0-47.0) % MCV 108.9 H (81.0-99.0) fL MCH 32.6 H (27.0-31.0) pg MCHC 30.0 L (33.0-37.0) g/dL RDW 22.5 H (11.5-14.5) % Plt Count 432 H (130-400) K/uL MPV 9.6 (7.2-11.7) fL Neut % (Auto) 87.5 H (50.0-75.0) % Lymph % (Auto) 6.7 L (20.0-40.0) % [place] % (Auto) 3.9 (0.0-10.0) % Eos % (Auto) 1.0 (0.0-4.0) % Baso % (Auto) 0.9 (0.0-2.0) % Neut # 27.6 H (1.8-7.0) K/uL Lymph # 2.1 (1.0-4.3) K/uL [place] # 1.2 H (0.0-0.8) K/uL Eos # 0.3 (0.0-0.7) K/uL Baso # 0.3 H (0.0-0.2) K/uL Neutrophils % (Manual) 72 (50-75) % Band Neutrophils % 20 H* (0-2) % Lymphocytes % (Manual) 1 L (20-40) % Monocytes % (Manual) 4 (0-10) % Eosinophils % (Manual) 3 (0-4) % Platelet Estimate Normal (NORMAL) Large Platelets Present Polychromasia Slight Hypochromasia (manual) Slight Poikilocytosis (manual Slight Anisocytosis (manual) Moderate Macrocytosis (manual) Moderate Spherocytes Slight Target Cells Slight Tear Drop Cells Slight Ovalocytes Slight PT 16.4 H (9.7-12.2) SECONDS INR 1.4 Sodium 145 (132-148) mmol/L Potassium 3.5 L (3.6-5.2) mmol/L Chloride 107 (98-107) mmol/L Carbon Dioxide 27 (22-30) mmol/L Anion Gap 15 (10-20) BUN 11 (7-17) mg/dL Creatinine 0.6 L (0.7-1.2) MG/DL Est GFR ( Amer) > 60 Est GFR (Non-Af Amer) > 60 Random Glucose 107 H (65-105) mg/dL Calcium 8.1 L (8.6-10.4) mg/dl Phosphorus 2.8 (2.5-4.5) mg/dL Magnesium 2.1 (1.6-2.3) mg/dL Total Bilirubin 12.4 H (0.2-1.3) mg/dL AST 204 H (14-36) U/L ALT 50 (9-52) U/L Alkaline Phosphatase 121 (38-126) U/L Ammonia 35 H D (9-33) umol/L Total Protein 6.8 (6.3-8.3) g/dL Albumin 2.7 L (3.5-5.0) g/dL Globulin 4.0 H (2.2-3.9) gm/dL Albumin/Globulin Ratio 0.7 L (1.0-2.1) Laboratory Results - last 24 hr 10/01/16 10/01/16 10/01/16 06:37 06:49 10:43 WBC 31.6 H RBC 2.50 L Hgb 8.2 L Hct 27.2 L MCV 108.9 H MCH 32.6 H MCHC 30.0 L RDW 22.5 H Plt Count 432 H MPV 9.6 Neut % (Auto) 87.5 H Lymph % (Auto) 6.7 L [place] % (Auto) 3.9 Eos % (Auto) 1.0 Baso % (Auto) 0.9 Neut # 27.6 H Lymph # 2.1 [place] # 1.2 H Eos # 0.3 Baso # 0.3 H Neutrophils % (Manual) 72 Band Neutrophils % 20 H* Lymphocytes % (Manual) 1 L Monocytes % (Manual) 4 Eosinophils % (Manual) 3 Platelet Estimate Normal Large Platelets Present Polychromasia Slight Hypochromasia (manual) Slight Poikilocytosis (manual Slight Anisocytosis (manual) Moderate Macrocytosis (manual) Moderate Spherocytes Slight Target Cells Slight Tear Drop Cells Slight Ovalocytes Slight PT 16.4 H INR 1.4 Sodium 145 Potassium 3.5 L Chloride 107 Carbon Dioxide 27 Anion Gap 15 BUN 11 Creatinine 0.6 L Est GFR ( Amer) > 60 Est GFR (Non-Af Amer) > 60 Random Glucose 107 H Calcium 8.1 L Phosphorus 2.8 Magnesium 2.1 Total Bilirubin 12.4 H AST 204 H ALT 50 Alkaline Phosphatase 121 Ammonia 35 H D Total Protein 6.8 Albumin 2.7 L Globulin 4.0 H Albumin/Globulin Ratio 0.7 L Assessment/Plan (1) Liver failure Current Visit: Yes Status: Acute Comment: Patient with clinical features of acute liver failure Awaiting transfer to tertiary care center, off Precedex drip, more awake and responsive Started on imipenem for ESBL in urine Hepatitis profile (2) Alcohol dependence Current Visit: Yes Status: Acute (3) Hepatic encephalopathy Assessment and plan: Ammonia level improving Continue lactulose Seen by gastroenterology Current Visit: Yes Status: Acute (4) Sepsis Current Visit: Yes Status: Acute
--- NOTE | 2016-10-01 20:48 | CP.PCM.PN ---
<Katalina Oneal - Last Filed: 10/01/16 21:48> Subjective - Date & Time of Evaluation Date of Evaluation: 10/01/16 Time of Evaluation: 20:30 - Subjective Subjective: House Doctor Note: I was called for this 31 F admitted for liver failure, hepatic encephalopathy to evaluate for tachypnea. Patient awaiting transfer since she is in need of liver transplant. Patient was recently transferred out of ICU earlier today. Patient with tachypnea in the 40's, tachycardia HR 120's, BP 140/82, o2 97% on 2 L NC. Patient was given one dose of Ativan at 18:30. Recent imaging was reviews (CXR, abdominal US). Patient currently on Vanco and Primaxin IVPB. ID on board, Dr. Velazquez. Discussed with patient's primary, Dr. Becerril, who ordered: CBC, CMP, lactic acid. Dr. Becerril requesting ICU to re-evaluate. One time dose of Lasix given since patient had abdominal distension on physical exam. Discussed with Dr. Anand who is covering ICU. Dr. Anand evaluated patient and ordered Morphine since patient may be splinting secondary to pain. 1:1 was also ordered with close monitoring of vitals. Physical: GEN: NAD, confused, awake. Pulm: tachypneic, clear to auscultation. Cardio: tachycardia, +S1 +S2, no murmurs. Abdomen: distended, tender to palpation. Extremities: no edema. Skin: jaundiced, cool and clammy. Patient's sister and family at bedside. Patient's sister left phone number in chart for any further matters. Katalina Oneal, DO- PGY 2 Objective - Vital Signs/Intake and Output Vital Signs (last 24 hours): Temp Pulse Resp BP Pulse Ox 99.4 F 122 H 32 H 128/78 96 10/01/16 20:33 10/01/16 20:33 10/01/16 20:33 10/01/16 20:33 10/01/16 20:33 Intake and Output: 10/01/16 10/02/16 18:59 06:59 Intake Total 1546.5 Output Total 270 Balance 1276.5 - Medications Medications: Current Medications Sodium Chloride (Sodium Chloride 0.9%) 1,000 mls @ 75 mls/hr IV .[id number] DAKSHA Last Admin: 10/01/16 09:00 Dose: Not Given Vancomycin/Sodium Chloride (Vancocin) 200 mls @ 133.333 mls/hr IVPB Q12H [facility] Stop: 10/05/16 10:01 Last Admin: 10/01/16 10:14 Dose: 133.333 mls/hr Acetylcysteine 0.4 gm/ (Dextrose) 202 mls @ 200 mls/hr IV TID [facility] Last Admin: 10/01/16 17:26 Dose: 200 mls/hr Imipenem/Cilastatin Sodium 500 (mg/ Sodium Chloride) 100 mls @ 100 mls/hr IVPB Q6H [facility] Last Admin: 10/01/16 17:25 Dose: 100 mls/hr Ibuprofen (Motrin Tab) 400 mg PO Q6H PRN PRN Reason: Fever >100.4 F Last Admin: 10/01/16 19:14 Dose: 400 mg Lactulose (Enulose) 20 gm PO Q4H [facility] Last Admin: 10/01/16 17:25 Dose: 20 gm Lactulose (Enulose) 200 gm [place] Q4 [facility] Last Admin: 10/01/16 20:43 Dose: Not Given Lorazepam (Ativan) 0.5 mg IVP Q3H PRN PRN Reason: Anxiety Last Admin: 10/01/16 18:30 Dose: 0.5 mg Pantoprazole Sodium (Protonix Inj) 40 mg IVP DAILY [facility] Last Admin: 10/01/16 10:43 Dose: 40 mg Thiamine HCl (Vitamin B1 Inj) 100 mg IV ONCE ONE Stop: 10/01/16 20:45 - Labs Labs: 10/01/16 06:37 10/01/16 06:37 PT 16.4 SECONDS (9.7-12.2) H 10/01/16 10:43 INR 1.4 10/01/16 10:43 APTT 43 SECONDS (21-34) H 09/29/16 14:58 <Elkin Anand P - Last Filed: 10/11/16 08:35> Objective - Vital Signs/Intake and Output Vital Signs (last 24 hours): Temp Pulse Resp BP Pulse Ox 98.6 F 124 H 20 138/86 96 10/02/16 17:00 10/02/16 13:00 10/02/16 13:00 10/02/16 13:00 10/02/16 13:00 - Labs Labs: 10/02/16 11:19 10/02/16 11:19 PT 16.5 SECONDS (9.7-12.2) H 10/02/16 11:19 INR 1.4 10/02/16 11:19 APTT 41 SECONDS (21-34) H 10/01/16 21:56 Attending/Attestation - Attestation I have personally seen and examined this patient.: Yes I have fully participated in the care of the patient.: Yes I have reviewed all pertinent clinical information, including history, physical exam and plan: Yes
[2016-10-01] MEDS ORDERED: Thiamine 100 mg/ml Inj IV ONE (21:00)
[2016-10-01 21:08] LABS: BASO # 0.4 K/uL (0.0-0.2); EOS # 0.2 K/uL (0.0-0.7); EOS % 0.6 % (0.0-4.0); HEMATOCRIT 27.6 % (34.0-47.0); LYMPH # 2.5 K/uL (1.0-4.3); LYMPH % 7.2 % (20.0-40.0); MEAN CELL VOLUME 110.5 fL (81.0-99.0); MEAN CORPUSCULAR HEMOGLOBIN 33.2 pg (27.0-31.0); MEAN PLATELET VOLUME 9.3 fL (7.2-11.7); MONO # 1.3 K/uL (0.0-0.8); MONO % 3.6 % (0.0-10.0); NRBC % 0.1 % (0.0-2.0); PLATELET COUNT 458 K/uL (130-400); RED CELL DISTRIBUTION WIDTH 22.7 % (11.5-14.5); WHITE BLOOD COUNT 35.2 K/uL (4.8-10.8)
[2016-10-01 21:16] LABS: CHLORIDE 105 mmol/L (98-107)
[2016-10-01 21:17] LABS: POTASSIUM 3.3 mmol/L (3.6-5.2); SODIUM 148 mmol/L (132-148)
[2016-10-01 21:19] LABS: GFR AFRICAN-AMERICAN > 60
[2016-10-01 21:20] LABS: ALB/GLOB RATIO 0.8 (1.0-2.1); ALKALINE PHOSPHATASE 123 U/L (38-126); ALT/SGPT 46 U/L (9-52); AST/SGOT 219 U/L (14-36); BILIRUBIN,TOTAL 12.8 mg/dL (0.2-1.3); BLOOD UREA NITROGEN 9 mg/dL (7-17); CALCIUM 8.1 mg/dl (8.6-10.4); CARBON DIOXIDE 27 mmol/L (22-30); GLUCOSE,RANDOM 102 mg/dL (65-105); TOTAL PROTEIN 6.9 g/dL (6.3-8.3)
[2016-10-01 21:56] LABS: METAMYELOCYTE 2 % (0-0); NEUTROPHIL 85 % (50-75); TOTAL CELLS COUNTED 100
[2016-10-01 22:21] LABS: INR 1.4
[2016-10-01] MEDS ORDERED: Potassium Chloride 20 mEq 100 ML IVPB ONE (22:22)
--- NOTE | 2016-10-02 07:39 | CP.PCM.PN ---
Subjective - Date & Time of Evaluation Date of Evaluation: 10/02/16 Time of Evaluation: 10:55 - Subjective Subjective: Dr. Becerril service: patient seen and evaluated in room. She is complaining of pain and is also reporting she is very uncomfortable. Objective - Vital Signs/Intake and Output Vital Signs (last 24 hours): Temp Pulse Resp BP Pulse Ox 99.6 F 130 H 24 146/90 95 10/02/16 07:00 10/02/16 07:00 10/02/16 07:00 10/02/16 07:00 10/02/16 07:00 Intake and Output: 10/02/16 10/02/16 06:59 18:59 Output Total 1625 Balance -1625 - Medications Medications: Current Medications Sodium Chloride (Sodium Chloride 0.9%) 1,000 mls @ 75 mls/hr IV .[id number] [facility] Last Admin: 10/01/16 09:00 Dose: Not Given Vancomycin/Sodium Chloride (Vancocin) 200 mls @ 133.333 mls/hr IVPB Q12H [facility] Stop: 10/05/16 10:01 Last Admin: 10/01/16 21:34 Dose: 133.333 mls/hr Acetylcysteine 0.4 gm/ (Dextrose) 202 mls @ 200 mls/hr IV TID [facility] Last Admin: 10/01/16 17:26 Dose: 200 mls/hr Imipenem/Cilastatin Sodium 500 (mg/ Sodium Chloride) 100 mls @ 100 mls/hr IVPB Q6H [facility] Last Admin: 10/02/16 04:39 Dose: 100 mls/hr Ibuprofen (Motrin Tab) 400 mg PO Q6H PRN PRN Reason: Fever >100.4 F Last Admin: 10/01/16 19:14 Dose: 400 mg Lactulose (Enulose) 20 gm PO Q4H [facility] Last Admin: 10/02/16 05:39 Dose: 20 gm Lactulose (Enulose) 200 gm MS Q4 [facility] Last Admin: 10/02/16 06:27 Dose: Not Given Lorazepam (Ativan) 0.5 mg IVP Q3H PRN PRN Reason: Anxiety Last Admin: 10/02/16 06:27 Dose: 0.5 mg Pantoprazole Sodium (Protonix Inj) 40 mg IVP DAILY [facility] Last Admin: 10/01/16 10:43 Dose: 40 mg - Labs Labs: 10/01/16 21:00 10/01/16 21:00 PT 16.0 SECONDS (9.7-12.2) H 10/01/16 21:56 INR 1.4 10/01/16 21:56 APTT 41 SECONDS (21-34) H 10/01/16 21:56 - Constitutional Appears: Non-toxic, No Acute Distress - Head Exam Head Exam: NORMAL INSPECTION - Eye Exam Eye Exam: Normal appearance. absent: PERRL Pupil Exam: NORMAL ACCOMODATION - GI/Abdominal Exam GI & Abdominal Exam: Distended, Tenderness - Psychiatric Exam Psychiatric exam: Anxious - Skin Skin Exam: Pallor Assessment and Plan (1) Hepatic encephalopathy Assessment & Plan: Patient was transferred to [facility]. Status: Acute (2) Liver failure Status: Acute
--- NOTE | 2016-10-02 08:11 | CP.PCM.PN ---
<Paolo Wolfe - Last Filed: 10/02/16 09:56> Subjective - Date & Time of Evaluation Date of Evaluation: 10/02/16 Time of Evaluation: 08:15 - Subjective Subjective: PGY4 GI Fellow Progress Note Patient seen and examined bedside this morning. Today she complains of right sided abdominal/flank pain. States she is nauseous and cannot eat. Confused at times but more responsive than previous. Per 1:1, patient is having frequent BM and tolerating lactulose PO without issue. 12 system ROS performed and negative except where stated. Objective - Vital Signs/Intake and Output Vital Signs (last 24 hours): Temp Pulse Resp BP Pulse Ox 99.6 F 130 H 24 146/90 95 10/02/16 07:00 10/02/16 07:00 10/02/16 07:00 10/02/16 07:00 10/02/16 07:00 Intake and Output: 10/02/16 10/02/16 06:59 18:59 Output Total 1625 Balance -1625 - Medications Medications: Current Medications Sodium Chloride (Sodium Chloride 0.9%) 1,000 mls @ 75 mls/hr IV .[id number] [facility] Last Admin: 10/01/16 09:00 Dose: Not Given Vancomycin/Sodium Chloride (Vancocin) 200 mls @ 133.333 mls/hr IVPB Q12H [facility] Stop: 10/05/16 10:01 Last Admin: 10/01/16 21:34 Dose: 133.333 mls/hr Acetylcysteine 0.4 gm/ (Dextrose) 202 mls @ 200 mls/hr IV TID [facility] Last Admin: 10/01/16 17:26 Dose: 200 mls/hr Imipenem/Cilastatin Sodium 500 (mg/ Sodium Chloride) 100 mls @ 100 mls/hr IVPB Q6H [facility] Last Admin: 10/02/16 04:39 Dose: 100 mls/hr Ibuprofen (Motrin Tab) 400 mg PO Q6H PRN PRN Reason: Fever >100.4 F Last Admin: 10/01/16 19:14 Dose: 400 mg Lactulose (Enulose) 20 gm PO Q4H [facility] Last Admin: 10/02/16 05:39 Dose: 20 gm Lactulose (Enulose) 200 gm [place] Q4 [facility]AKSHA Last Admin: 10/02/16 06:27 Dose: Not Given Lorazepam (Ativan) 0.5 mg IVP Q3H PRN PRN Reason: Anxiety Last Admin: 10/02/16 06:27 Dose: 0.5 mg Pantoprazole Sodium (Protonix Inj) 40 mg IVP DAILY [facility]AKSHA Last Admin: 10/01/16 10:43 Dose: 40 mg - Labs Labs: 10/01/16 21:00 10/01/16 21:00 PT 16.0 SECONDS (9.7-12.2) H 10/01/16 21:56 INR 1.4 10/01/16 21:56 APTT 41 SECONDS (21-34) H 10/01/16 21:56 - Constitutional Appears: Toxic, Confused, Chronically Ill - Eye Exam Eye Exam: EOMI, PERRL, Scleral icterus - ENT Exam ENT Exam: Mucous Membranes Dry - Respiratory Exam Respiratory Exam: Clear to Ausculation Bilateral. absent: Rales, Rhonchi, Wheezes - Cardiovascular Exam Cardiovascular Exam: Tachycardia, +S1, +S2 - GI/Abdominal Exam GI & Abdominal Exam: Distended, Soft, Tenderness (RUQ, RLQ), Hypoactive Bowel Sounds. absent: Firm, Guarding, Rigid, Organomegaly - Extremities Exam Additional comments: 1+ B/L LE edema - Neurological Exam Neurological Exam: Alert, Awake, Oriented x3 Additional comments: slow to respond, deliberate movements, asterixis and tremor noted - Psychiatric Exam Psychiatric exam: Anxious - Skin Skin Exam: Dry, Warm Additional comments: jaundice Assessment and Plan - Assessment and Plan (Free Text) Assessment: Patient is a 31yo female with [place] [facility] [place] [employer] , EtOH abuse, addiction to benzodiazepines, HTN, asthma and ? seizures who presented with AMS -Hepatic encephalopathy -Acute alcoholic hepatitis -E coli ESBL UTI -EtOH cirrhosis -EtOH abuse -Benzodiazepine abuse -HTN Plan: -MDF on admission 53.2 - contraindication to steroids, ongoing sepsis -Accepted at [facility], pending bed availability -NAC therapy -Check echocardiogram, R/o hepatopulmonary syndrome -Change Lactulose to 30gm PO BID -Start 2gm Na, high protein, 2500 kcal diet -U/S reviewed -Autoimmune w/u pending -Viral hepatitis serologies negative -Imipenem for UTI -MELD-Na labs pending <Gi Flaherty MD - Last Filed: 10/02/16 10:10> Objective - Vital Signs/Intake and Output Vital Signs (last 24 hours): Temp Pulse Resp BP Pulse Ox 98.5 F 130 H 22 144/89 95 10/02/16 09:12 10/02/16 09:12 10/02/16 09:12 10/02/16 09:12 10/02/16 09:12 Intake and Output: 10/02/16 10/02/16 06:59 18:59 Output Total 1625 Balance -1625 - Medications Medications: Current Medications Sodium Chloride (Sodium Chloride 0.9%) 1,000 mls @ 75 mls/hr IV .[id number] [facility] Last Admin: 10/01/16 09:00 Dose: Not Given Vancomycin/Sodium Chloride (Vancocin) 200 mls @ 133.333 mls/hr IVPB Q12H [facility] Stop: 10/05/16 10:01 Last Admin: 10/01/16 21:34 Dose: 133.333 mls/hr Acetylcysteine 0.4 gm/ (Dextrose) 202 mls @ 200 mls/hr IV TID [facility] Last Admin: 10/01/16 17:26 Dose: 200 mls/hr Imipenem/Cilastatin Sodium 500 (mg/ Sodium Chloride) 100 mls @ 100 mls/hr IVPB Q6H [facility] Last Admin: 10/02/16 09:35 Dose: 100 mls/hr Ibuprofen (Motrin Tab) 400 mg PO Q6H PRN PRN Reason: Fever >100.4 F Last Admin: 10/01/16 19:14 Dose: 400 mg Lactulose (Enulose) 30 gm PO BID [facility] Lorazepam (Ativan) 0.5 mg IVP Q3H PRN PRN Reason: Anxiety Last Admin: 10/02/16 06:27 Dose: 0.5 mg Pantoprazole Sodium (Protonix Inj) 40 mg IVP DAILY [facility] Last Admin: 10/02/16 09:35 Dose: 40 mg - Labs Labs: 10/01/16 21:00 10/01/16 21:00 PT 16.0 SECONDS (9.7-12.2) H 10/01/16 21:56 INR 1.4 10/01/16 21:56 APTT 41 SECONDS (21-34) H 10/01/16 21:56 Attending/Attestation - Attestation I have personally seen and examined this patient.: Yes I have fully participated in the care of the patient.: Yes I have reviewed all pertinent clinical information, including history, physical exam and plan: Yes Notes (Text): 10/02/16 10:04 I have seen and examined patient with GI fellow. 31 yr old f with severe alcoholic hepatitis and ESBL UTI seen drowsy but able to follow instructions and answer questions. She was downgraded from MICu to tele monitor on 3 lt O2 with platypnea and orthodeoxia upon sitting up. Suspicion for Hepatopulmonary syndrome in setting of acute on chronic liver disease. She is on lactulose with adequate BM. Pottasium supplement. Will send for Echo with bubble study to rule out HPS. Persistent tachycardia - may be multifactorial from UTI and alcohol withdrawl. Opioids and narcotics should be kept at minimum to allow GI to assess mental status closely. Suggest starting high caloric, high protein diet with low sodium. Abdominal US reviewed by me showing hepato/splenomegaly without presence of significant ascites, paracentesis not possible. Preliminary read shows patent portal vein. Awaiting autoimmune panel, ceruloplasmin level. Hepatitis serologies negative. Active UTI- contraindication to steroid use in alcoholic hepatitis. - Patient has been accepted for transfer to [facility] liver service, currently awaiting bed assignment. - Overall patient prognosis is poor, will continue to monitor patient closely with you 10/02/16 10:09
--- NOTE | 2016-10-02 10:12 | HP ---
This is a 31-year-old female with history of alcoholism. Presented with a chief complaint of liver f ailure, hepatic encephalopathy. The patient felt extremely weak anemia. Fara Quintero MD cc: [id number] TT: 10/01/2016 07:42:49 en 10/02/2016 09:11:32
--- NOTE | 2016-10-02 10:14 | HP ---
A 31-year-old female brought to the hospital with chief complaint of liver failure, hepatic encephalo daphney, alcohol withdrawal. The patient has been heavy alcoholic from a previous time. Continued to drink despite the liver failure. PHYSICAL EXAMINATION: GENERAL: The patient is currently obtunded, respond to verbal stimuli . VITAL SIGNS: Temperature 97, pulse is 100. HEENT: Within normal limits. NECK: Supple. CHEST: Symmetrical. HEART: Regular. ABDOMEN: Distended. EXTREMITIES: No edema. The patient suffers from acute liver failure, hepatic encephalopathy, alcohol delirium tremens. The patient will get bedrest, supportive care, lactulose. The patient's prognosis extremely poor. Fara Quintero MD cc: [id number] TT: 10/01/2016 07:49:42 en
--- NOTE | 2016-10-02 10:19 | CP.PCM.CON ---
History of Present Illness - History of Present Illness History of Present Illness: 31 year old female with history of Alcohol Abuse, Hypertension, Asthma, Anxiety , and possible Seizures presented with altered mental status. treated in ICU for hepatic encephalopathy Now spiking fevers poorhistorian, awake alert + LBM on lactulose abd sitended by ascites non rigid min tender to deep palpation GI on board possible transfer to [place] Review of Systems - Review of Systems Systems not reviewed;Unavailable: Altered Mental Status - Constitutional Constitutional: absent: As Per HPI, Anorexia, Chills, Daytime Sleepiness, Excessive Sweating, Fatigue, Fever, Frequent Falls, Headache, Increased Appetite , Lethargy, Malaise, Night Sweats, Snoring, Sleep Apnea, Weight Gain, Weight Loss, Weakness, Other - EENT Eyes: absent: As Per HPI, Blind Spots, Blurred Vision, Change in Vision, Decreased Night Vision, Diplopia, Discharge, Dry Eye, Exophthalmos, Floaters, Irritation, Itchy Eyes, Loss of Peripheral Vision, Pain, Photophobia, Requires Corrective Lenses, Sees Flashes, Spots in Vision, Tunnel Vision, Other Visual Disturbances, Loss of Vision, Other Ears: absent: As Per HPI, Decreased Hearing, Ear Discharge, Ear Pain, Tinnitus, Abnormal Hearing, Disequilibrium, Dizziness, Other Nose/Mouth/Throat: absent: As Per HPI, Epistaxis, Nasal Congestion, Nasal Discharge, Nasal Obstruction, Nasal Trauma, Nose Pain, Post Nasal Drip, Sinus Pain, Sinus Pressure, Bleeding Gums, Change in Voice, Dental Pain, Dry Mouth, Dysphagia, Halitosis, Hoarsness, Lip Swelling, Mouth Lesions, Mouth Pain, Odynophagia, Sore Throat, Throat Swelling, Tongue Swelling, Facial Pain, Neck Pain, Neck Mass, Other - Breasts Breasts: absent: As Per HPI, Change in Shape, Mass, Pain, Nipple Discharge, Nipple Inversion, Skin Changes, Swelling, Other - Cardiovascular Cardiovascular: absent: As Per HPI, Acrocyanosis, Chest Pain, Chest Pain at Rest , Chest Pain with Activity, Claudication, Diaphoresis, Dyspnea, Dyspnea on Exertion, Edema, Irregular Heart Rhythm, Pain Radiating to Arm/Neck/Jaw, Leg Edema, Leg Ulcers, Lightheadedness, Orthopnea, Palpitations, Paroxysmal Nocturnal Dyspnea, Pedal Edema, Radiating Pain, Rapid Heart Rate, Slow Heart Rate, Syncope, Other - Respiratory Respiratory: absent: As Per HPI, Cough, Dyspnea, Hemoptysis, Dyspnea on Exertion , Wheezing, Snoring, Stridor, Pain on Inspiration, Chest Congestion, Excessive Mucous Production, Change in Mucous Color, Pain with Coughing, Other - Gastrointestinal Gastrointestinal: As Per HPI - Genitourinary Genitourinary: absent: As Per HPI, Change in Urinary Stream, Difficulty Urinating, Dysuria, Flank Pain, Hematuria, Pyuria, Nocturia, Urinary Incontinence, Urinary Frequency, Urinary Hesitance, Urinary Urgency, Voiding Freq/Small Amts, Freq UTI, Hx Renal/Bladder Calculi, Hx /Renal Surgery, Bladder Distension, Other - Reproductive: Female Reproductive:Female: absent: As Per HPI, Amenorrhea, Amenorrhea/ Control, Currently Menstual, Cycle <21 Days, Cycle >35 Days, Cycle Variable, Menses 1-7 Days, Menses >/= 8 Days, Menses Variable, Cycle > 4 Weeks Between, No Menses for 6 Months, Heavy Menses, Light Menses, Normal Menses, Spotting Between Cycles , S/P Hysterectomy, Menopausal, Post Menopausal, Premenarche, Abnormal Vaginal Bleeding, Dysmenorrhea, Dyspareunia, Genital Lesions, Genital Pruritis, Pelvic Pain, Prolapse Symptoms, Sexual Dysfunction, Vaginal Discharge, Vaginal Dryness , Vaginal Odor, Vaginal Pruritis, Other - Menstruation Menstruation: absent: As Per HPI, Amenorrhea, Amenorrhea/ Control, Currently Menstual, Cycle <21 Days, Cycle >35 Days, Cycle Variable, Menses 1-7 Days, Menses >/= 8 Days, Menses Variable, Cycle > 4 Weeks Between, No Menses for 6 Months, Heavy Menses, Light Menses, Normal Menses, Spotting Between Cycles , S/P Hysterectomy, Menopausal, Post Menopausal, Premenarche, Abnormal Vaginal Bleeding, Dysmenorrhea, Other - Musculoskeletal Musculoskeletal: absent: As Per HPI, Abnormal Gait, Arthralgias, Atrophy, Back Pain, Deformity, Joint Swelling, Limited Range of Motion, Loss of Height, Muscle Cramps, Muscle Weakness, Myalgias, Neck Pain, Numbness, Radiating Pain into Limb, Stiffness, Tingling, Other - Integumentary Integumentary: absent: As Per HPI, Acne, Alopecia, Bleeding Lesions, Change in Hair, Change in Nails, Change in Pigmentation, Changing Lesions, Dry Skin, Erythema, Furuncle, Hirsutism, Lesions, New Lesions, Non-Healing Lesions, Photosensitivity, Pruritus, Rash, Skin Pain, Skin Ulcer, Sores, Striae, Swelling , Unusual Bruising, Wounds, Jaundice, Other - Neurological Neurological: As Per HPI - Psychiatric Psychiatric: As Per HPI - Hematologic/Lymphatic Hematologic: absent: As Per HPI, Easy Bleeding, Easy Bruising, Lymphadenopathy, Other Past Patient History - Infectious Disease Hx of Infectious Diseases: None - Past Medical History & Family History Past Medical History?: Yes - Past Social History Smoking Status: Never Smoked - CARDIAC Hx Hypertension: Yes - PULMONARY Hx Asthma: Yes - NEUROLOGICAL Hx Seizures: Yes - HEMATOLOGICAL/ONCOLOGICAL Hx Human Immunodeficiency Virus (HIV): No - INTEGUMENTARY Hx Eczema: Yes - MUSCULOSKELETAL/RHEUMATOLOGICAL Hx Falls: No - GASTROINTESTINAL Hx Liver Failure: (liver problems) - GENITOURINARY/GYNECOLOGICAL Hx Sexually Transmitted Disorders: No - PSYCHIATRIC Hx Anxiety: Yes Hx Substance Use: No - SURGICAL HISTORY Hx Surgeries: Yes Hx Orthopedic Surgery: Yes - ANESTHESIA Hx Anesthesia: Yes Hx Anesthesia Reactions: No Hx Malignant Hyperthermia: No Meds Allergies/Adverse Reactions: Allergies Allergy/AdvReac Type Severity Reaction Status Date / Time No Known Allergies Allergy Verified 11/09/15 13:46 - Medications Medications: Current Medications Sodium Chloride (Sodium Chloride 0.9%) 1,000 mls @ 75 mls/hr IV .[id number] [facility] Last Admin: 10/01/16 09:00 Dose: Not Given Vancomycin/Sodium Chloride (Vancocin) 200 mls @ 133.333 mls/hr IVPB Q12H [facility] Stop: 10/05/16 10:01 Last Admin: 10/01/16 21:34 Dose: 133.333 mls/hr Acetylcysteine 0.4 gm/ (Dextrose) 202 mls @ 200 mls/hr IV TID [facility] Last Admin: 10/01/16 17:26 Dose: 200 mls/hr Imipenem/Cilastatin Sodium 500 (mg/ Sodium Chloride) 100 mls @ 100 mls/hr IVPB Q6H [facility] Last Admin: 10/02/16 09:35 Dose: 100 mls/hr Ibuprofen (Motrin Tab) 400 mg PO Q6H PRN PRN Reason: Fever >100.4 F Last Admin: 10/01/16 19:14 Dose: 400 mg Lactulose (Enulose) 30 gm PO BID [facility] Lorazepam (Ativan) 0.5 mg IVP Q3H PRN PRN Reason: Anxiety Last Admin: 10/02/16 06:27 Dose: 0.5 mg Pantoprazole Sodium (Protonix Inj) 40 mg IVP DAILY [facility] Last Admin: 10/02/16 09:35 Dose: 40 mg Physical Exam - Constitutional Appears: No Acute Distress, Confused, Chronically Ill - Head Exam Head Exam: ATRAUMATIC, NORMAL INSPECTION, NORMOCEPHALIC - Eye Exam Eye Exam: Scleral icterus - ENT Exam ENT Exam: Mucous Membranes Dry, Normal External Ear Exam - Neck Exam Neck exam: Negative for: Lymphadenopathy, Thyromegaly - Respiratory Exam Respiratory Exam: Decreased Breath Sounds, Rhonchi - Cardiovascular Exam Cardiovascular Exam: REGULAR RHYTHM, +S1, +S2 - GI/Abdominal Exam GI & Abdominal Exam: Diminished Bowel Sounds, Distended, Soft, Tenderness - Rectal Exam Rectal Exam: Deferred - Exam Exam: NORMAL INSPECTION - Extremities Exam Extremities exam: Positive for: pedal pulses present. Negative for: calf tenderness, pedal edema, tenderness - Back Exam Back exam: absent: CVA tenderness (L), CVA tenderness (R) - Neurological Exam Neurological exam: Alert, Altered, CN II-XII Intact - Psychiatric Exam Psychiatric exam: Depressed - Skin Skin Exam: Dry Results - Vital Signs Recent Vital Signs: Last Vital Signs Temp 98.5 F 10/02/16 09:12 Pulse 130 H 10/02/16 09:12 Resp 22 10/02/16 09:12 BP 144/89 10/02/16 09:12 Pulse Ox 95 10/02/16 09:12 - Labs Result Diagrams: 10/01/16 21:00 10/01/16 21:00 Labs: Laboratory Results - last 24 hr 10/01/16 10/01/16 10/01/16 10:43 21:00 21:36 WBC 35.2 H RBC 2.50 L Hgb 8.3 L Hct 27.6 L MCV 110.5 H MCH 33.2 H MCHC 30.0 L RDW 22.7 H Plt Count 458 H MPV 9.3 Neut % (Auto) 87.6 H Lymph % (Auto) 7.2 L [place] % (Auto) 3.6 Eos % (Auto) 0.6 Baso % (Auto) 1.0 Neut # 30.8 H Lymph # 2.5 [place] # 1.3 H Eos # 0.2 Baso # 0.4 H Neutrophils % (Manual) 85 H Band Neutrophils % 7 H Lymphocytes % (Manual) 3 L Monocytes % (Manual) 3 Metamyelocytes % 2 H Platelet Estimate Slightly increased H Polychromasia Slight Hypochromasia (manual) Slight Poikilocytosis (manual Slight Anisocytosis (manual) Slight Macrocytosis (manual) Slight Target Cells Slight Ovalocytes Slight PT 16.4 H INR 1.4 APTT Sodium 148 Potassium 3.3 L Chloride 105 Carbon Dioxide 27 Anion Gap 19 BUN 9 Creatinine 0.6 L Est GFR ( Amer) > 60 Est GFR (Non-Af Amer) > 60 POC Glucose (mg/dL) Random Glucose 102 Lactic Acid 1.4 Calcium 8.1 L Total Bilirubin 12.8 H AST 219 H ALT 46 Alkaline Phosphatase 123 Total Protein 6.9 Albumin 3.0 L Globulin 4.0 H Albumin/Globulin Ratio 0.8 L 10/01/16 10/02/16 21:56 03:05 WBC RBC Hgb Hct MCV MCH MCHC RDW Plt Count MPV Neut % (Auto) Lymph % (Auto) [place] % (Auto) Eos % (Auto) Baso % (Auto) Neut # Lymph # [place] # Eos # Baso # Neutrophils % (Manual) Band Neutrophils % Lymphocytes % (Manual) Monocytes % (Manual) Metamyelocytes % Platelet Estimate Polychromasia Hypochromasia (manual) Poikilocytosis (manual Anisocytosis (manual) Macrocytosis (manual) Target Cells Ovalocytes PT 16.0 H INR 1.4 APTT 41 H Sodium Potassium Chloride Carbon Dioxide Anion Gap BUN Creatinine Est GFR ( Amer) Est GFR (Non-Af Amer) POC Glucose (mg/dL) 111 H Random Glucose Lactic Acid Calcium Total Bilirubin AST ALT Alkaline Phosphatase Total Protein Albumin Globulin Albumin/Globulin Ratio Assessment & Plan (1) Alcohol dependence Status: Acute (2) Benzodiazepine abuse Status: Acute (3) CHF (congestive heart failure) Status: Acute (4) Hepatic encephalopathy Status: Acute (5) Icterus Status: Acute (6) Liver failure Status: Acute (7) Sepsis Status: Acute (8) Asthma Status: Acute - Assessment and Plan (Free Text) Assessment: cultures pending cont IV antibiotics
[2016-10-02 10:48] VITALS: RESP 20
[2016-10-02] MEDS: ACETYLCYSTEINE IV SCH ×3 (11:26→17:29)
[2016-10-02] MEDS: WATER IV SCH ×3 (11:26→17:29)
[2016-10-02] MEDS: DEXTROSE 5% IV SCH ×3 (11:26→17:29)
[2016-10-02 11:32] LABS: INR 1.4
[2016-10-02 11:34] LABS: CHLORIDE 108 mmol/L (98-107); POTASSIUM 3.1 mmol/L (3.6-5.2); SODIUM 151 mmol/L (132-148)
[2016-10-02 11:36] LABS: AST/SGOT 207 U/L (14-36); BILIRUBIN,TOTAL 12.1 mg/dL (0.2-1.3); GFR AFRICAN-AMERICAN > 60
[2016-10-02 11:37] LABS: ALB/GLOB RATIO 0.8 (1.0-2.1); ALKALINE PHOSPHATASE 111 U/L (38-126); ALT/SGPT 43 U/L (9-52); BLOOD UREA NITROGEN 8 mg/dL (7-17); CALCIUM 8.1 mg/dl (8.6-10.4); CARBON DIOXIDE 27 mmol/L (22-30); GLUCOSE,RANDOM 144 mg/dL (65-105); TOTAL PROTEIN 6.6 g/dL (6.3-8.3)
[2016-10-02] MEDS: Sodium Chloride 0.9% 1,000 ML IV SCH (11:47)
[2016-10-02 12:00] LABS: BASO % 5.8 % (0.0-2.0); EOS # 0.1 K/uL (0.0-0.7); EOS % 0.2 % (0.0-4.0); HEMATOCRIT 28.8 % (34.0-47.0); LYMPH # 1.6 K/uL (1.0-4.3); LYMPH % 4.8 % (20.0-40.0); MEAN CORPUSCULAR HEMOGLOBIN 32.9 pg (27.0-31.0); MEAN CORPUSCULAR HGB CONC 29.1 g/dL (33.0-37.0); MEAN PLATELET VOLUME 9.6 fL (7.2-11.7); MONO # 1.3 K/uL (0.0-0.8); MONO % 3.6 % (0.0-10.0); NRBC % 0.1 % (0.0-2.0); PLATELET COUNT 464 K/uL (130-400); RED CELL DISTRIBUTION WIDTH 23.4 % (11.5-14.5); WHITE BLOOD COUNT 34.3 K/uL (4.8-10.8)
[2016-10-02 12:39] LABS: NEUTROPHIL 80 % (50-75); REACTIVE LYMPHOCYTES 1 % (0-0); TOTAL CELLS COUNTED 100
[2016-10-02 12:41] LABS: STOMATOCYTES SLIGHT
--- NOTE | 2016-10-02 12:46 | RAD ---
HISTORY: fever r/o pneumonia COMPARISON: 09/29/2016 FINDINGS: LUNGS: Moderate venous congestion. Right hilar prominence. PLEURA: As above. CARDIOVASCULAR: Cardiomegaly. OSSEOUS STRUCTURES: No significant abnormalities. VISUALIZED UPPER ABDOMEN: Normal. OTHER FINDINGS: None. IMPRESSION: Moderate venous congestion. Right hilar prominence.Cardiomegaly.
[2016-10-02] MEDS ORDERED: Vancomycin 1 gm/NS 200 ml 200 ML IVPB SCH (13:00)
[2016-10-02 13:07] VITALS: PULSE 124
[2016-10-02] MEDS ORDERED: Dextrose 5%/0.45% NS 1,000 ML IV SCH (13:30)
[2016-10-02 13:59] VITALS: BP 138/86; O2SAT 96
[2016-10-02] MEDS ORDERED: Potassium Chloride 20 mEq ER Tab PO SCH (14:00)
--- NOTE | 2016-10-02 15:21 | CARD ---
APPROVED REPORT EKG Measurement Heart [id number] <Conclusion> Sinus tachycardia Low voltage QRS Borderline ECG
[2016-10-02 17:15] VITALS: TEMP 98.6
[2016-10-02] MEDS ORDERED: Potassium Chloride 20 mEq ER Tab PO ONE (22:05)
--- NOTE | 2016-10-02 22:24 | CARD ---
APPROVED REPORT EXAM: Two-dimensional and M-mode echocardiogram with Doppler and color Doppler. Other Information Quality : AverageRhythm : NSR INDICATION Congestive Heart Failure ALCOHOL ABU M-Mode DIMENSIONS RVDd1.80 (2.1-3.2cm)Left Atrium (MM)4.14 (2.5-4.0cm) IVSd0.86 (0.7-1.1cm)Aortic Root2.34 (2.2-3.7cm) LVDd4.72 (4.0-5.6cm)Aortic Cusp Exc.1.72 (1.5-2.0cm) PWd1.02 (0.7-1.1cm)FS (%) 40 % LVDs2.85 (2.0-3.8cm)LVEF (%)70 (>50%) Aortic Valve AoV Peak Egsugrmm018.1cm/Uriel Peak GR.21mmHg Mitral Valve MV E Dlbvpuut185.6cm/sMV A Dkmzbiux65.4cm/sE/A ratio1.7 TDI E/Lateral E'0.0E/Medial E'0.0 Tricuspid Valve TR Peak Eunhxwqm531ed/sTR Peak Gr.06xlIgBXHU70ucXw LEFT VENTRICLE The left ventricle is normal size. There is normal left ventricular wall thickness. Left ventricle systolic function is normal. The Ejection Fraction is 65-70%. Echo imaging reveals no regional wall motion abnormalities. The left ventricular diastolic function is normal. No left ventricle thrombus noted on this study. There is no ventricular septal defect visualized. RIGHT VENTRICLE The right ventricle is normal size. The right ventricular systolic function is normal. ATRIA The left atrium is borderline dilated. The right atrium size is normal. AORTIC VALVE The aortic valve is trileaflet. No aortic regurgitation is present. There is no aortic valvular stenosis. There is no aortic valvular vegetation. MITRAL VALVE The mitral valve is normal in structure. There is no evidence of mitral valve prolapse. There is no mitral valve stenosis. There is no mitral valve regurgitation noted. TRICUSPID VALVE The tricuspid valve is normal in structure. There is mild tricuspid regurgitation. Right ventricular systolic pressure is estimated at less than 30 mmHg. There is no pulmonary hypertension. There is no tricuspid valve prolapse or vegetation. There is no tricuspid valve stenosis. PULMONIC VALVE The pulmonic valve is not well visualized. There is no pulmonic valvular regurgitation. GREAT VESSELS The aortic root is normal in size. The IVC is normal in size and collapses >50% with inspiration. PERICARDIAL EFFUSION There is no pericardial effusion. There is no pleural effusion. <Conclusion> The left ventricle is normal size. Left ventricle systolic function is normal. The Ejection Fraction is 65-70%. The left ventricular diastolic function is normal. The right ventricle is normal size. The right ventricular systolic function is normal. The left atrium is borderline dilated. The right atrium size is normal. There is mild tricuspid regurgitation.
--- NOTE | 2016-10-23 09:34 | DS ---
The patient admitted to the hospital with chief complain of liver failure. The patient in the ICU. Supportive care. ____ failure, transferred to [facility] for further management. Fara Quintero MD cc: [phone] TT: 10/22/2016 21:25:16 sn
== END 2016-10-02 20:02 | disposition short-term general hospital (02) | DRG 557 ==
LOC: C.ER 14:19 → C.9E 16:31 → C.9I 16:53 → C.5T 10-01 14:45
PROVIDERS: ADMIT Internal Medicine Pulmonary Disease; ATTEND Internal Medicine Pulmonary Disease
DX: K72.00 Acute and subacute hepatic failure without coma (principal); R65.20 Severe sepsis without septic shock; G93.41 Metabolic encephalopathy; F10.231 Alcohol dependence with withdrawal delirium; A41.9 Sepsis, unspecified organism; E87.2 Acidosis; I11.0 Hypertensive heart disease with heart failure; I50.9 Heart failure, unspecified; F13.10 Sedative, hypnotic or anxiolytic abuse, uncomplicated; K70.31 Alcoholic cirrhosis of liver with ascites; R16.2 Hepatomegaly with splenomegaly, not elsewhere classified; K70.11 Alcoholic hepatitis with ascites; F41.9 Anxiety disorder, unspecified; E66.01 Morbid (severe) obesity due to excess calories; J45.909 Unspecified asthma, uncomplicated; Y90.0 Blood alcohol level of less than 20 mg/100 ml; D64.9 Anemia, unspecified; R15.1 Fecal smearing; D72.825 Bandemia; G40.909 Epilepsy, unspecified, not intractable, without status epilepticus; R06.82 Tachypnea, not elsewhere classified

== ENCOUNTER 2016-10-13 04:09 | Inpatient (IN) | payer OTHER ==
[2016-10-13 04:09] VITALS: BMI 26.8
--- NOTE | 2016-10-13 04:44 | C.PDOC ---
History Of Present Illness Patient presents with seizure, as per her mother. Patient previously diagnosed with alcoholic liver failure. History obtained from mopther as patient is lethargic, possibly post ictal Time Seen by Provider: 10/13/16 04:44 Chief Complaint (Nursing): Abnormal Skin Integrity History Per: Family (Mother) History/Exam Limitations: clinical condition Onset/Duration Of Symptoms: Hrs Current Symptoms Are (Timing): Worse Severity: Severe Pain Scale Rating Of: 8 Recent travel outside of the [place]: No Additional History Per: Family (Mother) Past Medical History Reviewed: Historical Data, Nursing Documentation, Vital Signs Vital Signs: Last Vital Signs Temp 98.2 F 10/13/16 04:25 Pulse 120 H 10/13/16 04:25 Resp 14 10/13/16 04:25 BP 118/72 10/13/16 04:25 Pulse Ox 88 L 10/13/16 06:07 - Medical History PMH: Anxiety, Asthma, HTN, Seizures - [facility] Procedures DETOXIFICATION SERVICES FOR SUBSTANCE ABUSE TREATMENT (11/09/15) Family History: States: No Known Family Hx - Social History Hx Alcohol Use: No Hx Substance Use: No - Immunization History Hx Tetanus Toxoid Vaccination: No Hx Influenza Vaccination: No Hx Pneumococcal Vaccination: No Review Of Systems Review Of Systems: ROS cannot be obtained secondary to pt's inabilty to answer questions. Eyes: Positive for: Conjunctivae Inflammation Physical Exam - Physical Exam Appears: In Acute Distress, Chronically Ill, Other (Lethargic) Skin: Pale, Jaundice Eye(s): bilateral: Scleral Icterus Oral Mucosa: Moist Neck: Supple Chest: Symmetrical Cardiovascular: Rhythm Regular Respiratory: No Rales, Rhonchi (Scattered), No Wheezing Gastrointestinal/Abdominal: Bowel Sounds (tympanic to percussion), Tenderness ( mild), Organomegaly (hepatomegaly), Distention (Abdomen severe distended), No Guarding, Ascites Back: Normal Inspection Extremity: Pedal Edema (Bilateral) Extremity: Bilateral: Atraumatic Neurological/Psych: Other (pt slow to respond to questions) Gait: Unable To Assess ED Course And Treatment - Laboratory Results Result Diagrams: 10/13/16 04:57 10/13/16 04:57 ECG: Interpreted By Me, Viewed By Me O2 Sat by Pulse Oximetry: 88 (room air) Pulse Ox Interpretation: Abnormal - Radiology CXR: Interpreted by Me, Viewed By Me CXR Interpretation: Yes: Cardiomegaly, Other (mild chf, not much changed from ) Progress Note: blood work, ivf, blood cultures,. spokewith dr gross - icu - will come and see the pt Critical Care Time - Critical Care Note Total Time (in mins): 40 Documented critical care: time excludes all time spent performing seperately billable procedures. Disposition Discussed With : Fara Becerril Comment: accepted the pt on his service and took over the care at 6:19AM Doctor Will See Patient In The: ED Counseled Patient/Family Regarding: Studies Performed, Diagnosis - Disposition Disposition: HOSPITALIZED Disposition Time: 04:44 Condition: CRITICAL - Clinical Impression Clinical Impression: Icterus, Liver failure, Sepsis, Hepatic encephalopathy, Seizure - PA / ENTRY LEVEL DRAFTER / Resident Statement MD/DO has reviewed & agrees with the documentation as recorded. - Scribe Statement The provider has reviewed the documentation as recorded by the Diibparadise Calderon All medical record entries made by the Scribe were at my direction and personally dictated by me. I have reviewed the chart and agree that the record accurately reflects my personal performance of the history, physical exam, medical decision making, and the department course for this patient. I have also personally directed, reviewed, and agree with the discharge instructions and disposition. Decision To Admit - Pt Status Changed To: Hospital Disposition Of: Inpatient - Admit Certification Admit to Inpatient:: After my assessment, the patient will require hospitalization for at least two midnights. This is because of the severity of symptoms shown, intensity of services needed, and/or the medical risk in this patient being treated as an outpatient. - InPatient: Physician Admission Certification: I certify that this patient requires 2 or more midnights of care for the following reason:: After my assessment, the patient will require hospitalization for at least two midnights. This is because of the severity of symptoms shown, intensity of services needed, and/or the medical risk in this patient being treated as an outpatient. - . Bed Request Type: ICU Admitting Physician: Fara Becerril Patient Diagnosis: Icterus, Liver failure, Sepsis, Hepatic encephalopathy, Seizure
[2016-10-13 05:01] LABS: BASO # 0.3 K/uL (0.0-0.2); BASO % 0.5 % (0.0-2.0); EOS # 0.3 K/uL (0.0-0.7); EOS % 0.5 % (0.0-4.0); HEMATOCRIT 25.9 % (34.0-47.0); LYMPH # 2.2 K/uL (1.0-4.3); LYMPH % 3.6 % (20.0-40.0); MEAN CORPUSCULAR HEMOGLOBIN 34.3 pg (27.0-31.0); MEAN CORPUSCULAR HGB CONC 31.4 g/dL (33.0-37.0); MEAN PLATELET VOLUME 9.4 fL (7.2-11.7); MONO # 1.6 K/uL (0.0-0.8); MONO % 2.6 % (0.0-10.0); NRBC % 0.1 % (0.0-2.0); RED CELL DISTRIBUTION WIDTH 18.7 % (11.5-14.5)
[2016-10-13 05:12] LABS: CHLORIDE 91 mmol/L (98-107)
[2016-10-13 05:13] LABS: SODIUM 138 mmol/L (132-148)
[2016-10-13 05:15] LABS: BILIRUBIN,TOTAL 13.5 mg/dL (0.2-1.3); CARBON DIOXIDE 31 mmol/L (22-30); GFR AFRICAN-AMERICAN > 60; MEAN CELL VOLUME 109.4 fL (81.0-99.0); PLATELET COUNT 361 K/uL (130-400)
[2016-10-13 05:16] LABS: ALKALINE PHOSPHATASE 148 U/L (38-126); ALT/SGPT 89 U/L (9-52); AST/SGOT 276 U/L (14-36); BLOOD UREA NITROGEN 9 mg/dL (7-17); CALCIUM 8.6 mg/dl (8.6-10.4); GLUCOSE,RANDOM 111 mg/dL (65-105); INR 1.4; WHITE BLOOD COUNT 60.5 K/uL (4.8-10.8)
[2016-10-13] MEDS ORDERED: Piperacill/Tazo 3.375gm in Dex 50 ML IVPB STA (05:20)
[2016-10-13] MEDS ORDERED: Vancomycin 1 gm/NS 200 ml 200 ML IVPB STA (05:20)
[2016-10-13] MEDS ORDERED: Piperacillin/Tazobact 3.375 gm 100 ML IVPB ONE (05:26)
[2016-10-13 05:30] LABS: ABG ALLEN TEST POS; DRAW SITE RT RAD
[2016-10-13 05:56] LABS: BASOPHIL 1 % (0-2); EOSINOPHIL 2 % (0-4); METAMYELOCYTE 1 % (0-0); MYELOCYTE 2 % (0-0); NEUTROPHIL 79 % (50-75); TOTAL CELLS COUNTED 100
[2016-10-13 05:57] LABS: LARGE PLATELETS PRESENT
[2016-10-13] MEDS ORDERED: Sodium Chloride 0.9% 1,000 ML IV ONE (06:02)
--- NOTE | 2016-10-13 06:24 | CP.PCM.CON ---
History of Present Illness - History of Present Illness History of Present Illness: 31 YOF with who was recently diagnosed with alcohol hepatitis with decompensated liver failure, brought to ER my mother as pt had a one minute episode of seizure, what she described pt had mild tremors of the body and was very lethargic. No fever, no incontinence, pt was awake. Pt is not a good historian , she is awake and responsive. BP is stable. She has been admitted to [facility] in [facility], just discharged yesterday. Has edema, abdominal distention and is deeply jaundiced. Review of Systems - Review of Systems Systems not reviewed;Unavailable: Unstable Vital Signs, Altered Mental Status, Uncooperative - Constitutional Constitutional: Anorexia, Lethargy, Malaise - Cardiovascular Cardiovascular: As Per HPI - Respiratory Respiratory: As Per HPI - Gastrointestinal Gastrointestinal: Abdominal Pain, Diarrhea, Excessive Flatus - Genitourinary Genitourinary: As Per HPI Past Patient History - Infectious Disease Hx of Infectious Diseases: None - Past Medical History & Family History Past Medical History?: Yes - Past Social History Smoking Status: Never Smoked Alcohol: Other Drugs: Denies Home Situation {Lives}: With Family - CARDIAC Hx Hypertension: Yes - PULMONARY Hx Asthma: Yes - NEUROLOGICAL Hx Seizures: Yes - HEMATOLOGICAL/ONCOLOGICAL Hx Human Immunodeficiency Virus (HIV): No - INTEGUMENTARY Hx Eczema: Yes - MUSCULOSKELETAL/RHEUMATOLOGICAL Hx Falls: No - GASTROINTESTINAL Hx Liver Failure: (liver problems) - GENITOURINARY/GYNECOLOGICAL Hx Sexually Transmitted Disorders: No - PSYCHIATRIC Hx Anxiety: Yes Hx Substance Use: No - SURGICAL HISTORY Hx Surgeries: Yes Hx Orthopedic Surgery: Yes - ANESTHESIA Hx Anesthesia: Yes Hx Anesthesia Reactions: No Hx Malignant Hyperthermia: No Meds Allergies/Adverse Reactions: Allergies Allergy/AdvReac Type Severity Reaction Status Date / Time No Known Allergies Allergy Verified 10/13/16 04:36 - Medications Medications: Current Medications Vancomycin/Sodium Chloride (Vancocin) 200 mls @ 133 mls/hr IVPB STAT STA Stop: 10/13/16 06:50 Sodium Chloride (Sodium Chloride 0.9%) 1,000 mls @ 1,000 mls/hr IV .Q1H ONE Stop: 10/13/16 07:01 Physical Exam - Constitutional Appears: In Acute Distress - Head Exam Head Exam: ATRAUMATIC - Eye Exam Eye Exam: Scleral icterus Pupil Exam: PERRL - Neck Exam Neck exam: Positive for: Full Rom - Respiratory Exam Respiratory Exam: NORMAL BREATHING PATTERN - Cardiovascular Exam Cardiovascular Exam: REGULAR RHYTHM - GI/Abdominal Exam GI & Abdominal Exam: Distended, Hypoactive Bowel Sounds - Neurological Exam Neurological exam: Alert Results - Vital Signs Recent Vital Signs: Last Vital Signs Temp 98.2 F 10/13/16 04:25 Pulse 120 H 10/13/16 04:25 Resp 14 10/13/16 04:25 BP 118/72 10/13/16 04:25 Pulse Ox 88 L 10/13/16 06:07 - Labs Result Diagrams: 10/13/16 04:57 10/13/16 04:57 Labs: Laboratory Results - last 24 hr 10/13/16 10/13/16 04:54 04:57 WBC 60.5 H* D RBC 2.36 L Hgb 8.1 L Hct 25.9 L MCV 109.4 H D MCH 34.3 H MCHC 31.4 L RDW 18.7 H Plt Count 361 D MPV 9.4 Neut % (Auto) 92.8 H Lymph % (Auto) 3.6 L [place] % (Auto) 2.6 Eos % (Auto) 0.5 Baso % (Auto) 0.5 Neut # 56.1 H Lymph # 2.2 [place] # 1.6 H Eos # 0.3 Baso # 0.3 H Neutrophils % (Manual) 79 H Band Neutrophils % 8 H Lymphocytes % (Manual) 5 L Monocytes % (Manual) 2 Eosinophils % (Manual) 2 Basophils % (Manual) 1 Metamyelocytes % 1 H Myelocytes % 2 H Platelet Estimate Normal Large Platelets Present Polychromasia Slight Poikilocytosis (manual Slight Anisocytosis (manual) Moderate Macrocytosis (manual) Moderate PT 15.8 H INR 1.4 APTT 33 Puncture Site Rt rad pCO2 58 H pO2 67 L HCO3 29.8 H ABG pH 7.37 ABG Total CO2 35.3 H ABG O2 Saturation 97.3 ABG Base Excess 6.4 H Trever Test Pos ABG Potassium 2.4 L* Sodium 141.0 138 Chloride 103.0 91 L Glucose 106 H Lactate 3.3 H Liter Flow 3.0 Crit Value Called To Amy ricks md Crit Value Called By R alert Crit Value Read Back Y Blood Gas Notified Time 529 Potassium 3.0 L Carbon Dioxide 31 H Anion Gap 19 BUN 9 Creatinine 0.7 Est GFR ( Amer) > 60 Est GFR (Non-Af Amer) > 60 Random Glucose 111 H Calcium 8.6 Total Bilirubin 13.5 H AST 276 H D ALT 89 H D Alkaline Phosphatase 148 H D Ammonia 53 H D Total Protein 7.0 Albumin 3.5 D Globulin 3.5 Albumin/Globulin Ratio 1.0 Lipase 116 Arterial Blood Potassium 2.4 L* Assessment & Plan - Assessment and Plan (Free Text) Assessment: #1 YOF with decompensated alcohol hepatitis, with marked leulocytosis , sepsis, r/o SBP, AMS, hepatic encephalopathy, 1-Sepsis 2-r/o SBP 3-Alcoholic decompensated liver failure 4-Hypokalemia 5-Ascites 6-Hepatic encaphalopathy Plan: Admit to ICU IV kcl Blood culture Given Zosyn and vanco in ER, will continue zosyn lectulose lasix 40 mg IV q 12 H and aldactone 50 mg po bid, after correcting her potassium GI consult
[2016-10-13] MEDS ORDERED: Potassium Chloride 10 mEq 100 ML IVPB ONE ×5 (06:34→10:12)
[2016-10-13 06:35] LABS: RBC URINE < 1 /hpf (0-3); URINE BACTERIA RARE (<OCC); URINE BILIRUBIN NEGATIVE (NEGATIVE); URINE BLOOD NEGATIVE (NEGATIVE); URINE COLOR Amber (YELLOW); URINE GLUCOSE (UA) NORMAL (Normal); URINE KETONE NEGATIVE (NEGATIVE); URINE LEUKOCYTE ESTERASE NEG Leu/uL (Negative); URINE PROTEIN 1+ mg/dL (NEGATIVE); WBC URINE 3 /hpf (0-5)
[2016-10-13] MEDS ORDERED: Sodium Chloride 0.9% 1,000 ML ONE (06:43)
[2016-10-13] MEDS: Piperacill/Tazo 2.25gm in Dex 50 ML IVPB SCH ×3 (07:20→19:30)
[2016-10-13] MEDS ORDERED: Fluticasone-Salmeterol 250-50mcg Diskus INH SCH (08:00)
--- NOTE | 2016-10-13 09:11 | RAD ---
PROCEDURE: CHEST RADIOGRAPH, 1 VIEW HISTORY: Abdominal pain. Seizure. COMPARISON: 10/02/2016 FINDINGS: LUNGS: Moderate to large right and trace left pleural effusion. Confluent airspace opacification in the right mid to lower lung zone with milder opacification at the left lung base. Moderate venous congestion. PLEURA: As above. CARDIOVASCULAR: Cardiomegaly. OSSEOUS STRUCTURES: No significant abnormalities. VISUALIZED UPPER ABDOMEN: Normal. OTHER FINDINGS: None. IMPRESSION: Moderate to large right and trace left pleural effusion. Confluent airspace opacification in the right mid to lower lung zone with milder opacification at the left lung base. Moderate venous congestion.
[2016-10-13] MEDS ORDERED: Albumin Human 5% (12.5 gm/250 ml) IV ONE (11:00)
--- NOTE | 2016-10-13 11:42 | CP.CCUPN ---
<Kwasi De - Last Filed: 10/13/16 11:19> CCU Subjective - Physician Review Subjective (Free Text): 10/13/16 11:19 Pt seen and examined at bedside. Pt's mental status has improved since presentation. Pt is now oriented to person, place, time, and context. Patient is poor historian. Call was made to [facility] hepatobiliary team for further history. Pt was denied for transplant due to continued alcohol/xanax dependence. Pt admits "multiple seizures in the past." Call was placed to mother for more complete history. She admits pain in calves CCU Objective - Vital Signs / Intake & Output Vital Signs (Last 4 hours): Vital Signs Temp Pulse Resp BP Pulse Ox 10/13/16 09:00 122 H 20 154/76 H 93 L 10/13/16 08:00 98.5 F 114 H 24 135/65 93 L Intake and Output (Last 8hrs): Intake & Output 10/12/16 10/13/16 10/13/16 22:59 06:59 14:59 Intake Total 100 Output Total 600 450 Balance -600 -350 Weight 215 lb Intake: Intake, IV Amount 100 Right Hand 100 Output: Urine 600 450 Urine, Voided 450 Other: Voiding Method Bedpan - Medications Active Medications: Active Medications Generic Name Dose Route Start Last Admin Trade Name Macq PRN Reason Stop Dose Admin Gabapentin 300 mg 10/13/16 10:00 10/13/16 10:46 Neurontin PO 300 mg BID DAKSHA Administration Heparin Sodium (Porcine) 5,000 units 10/13/16 10:30 Heparin SC Q12 DAKSHA Piperacillin Sod/Tazobactam Sod 50 mls @ 100 mls/hr 10/13/16 06:45 10/13/16 07: 20 Zosyn 2.25 Gm Iv Premix IVPB Not Given Q6H DAKSHA Lactulose 30 gm 10/13/16 10:30 10/13/16 10:48 Enulose PO 30 gm Q6H DAKSHA Administration Prednisone 40 mg 10/13/16 10:00 10/13/16 10:35 Prednisone Tab PO 40 mg DAILY DAKSHA Administration Rifaximin 550 mg 10/13/16 10:45 10/13/16 11:12 Xifaxan PO 550 mg BID DAKSHA Administration Fluticasone/Salmeterol 1 puff 10/13/16 08:00 10/13/16 08:29 Advair Diskus 250/50 INH Not Given RQ12 DAKSHA - Patient Studies Lab Studies: Lab Studies 10/13/16 10/13/16 Range/Units 10:03 06:49 Lactic Acid 2.3 H (0.7-2.1) mmol/L Ammonia 43 H (9-33) umol/L Urine Color Catia (YELLOW) Urine Clarity Clear (Clear) Urine pH 5.0 (5.0-8.0) Ur Specific Taft 1.013 (1.003-1.030) Urine Protein 1+ H (NEGATIVE) mg/dL Urine Glucose (UA) Normal (Normal) mg/dL Urine Ketones Negative (NEGATIVE) mg/dL Urine Blood Negative (NEGATIVE) Urine Nitrate Negative (NEGATIVE) Urine Bilirubin Negative (NEGATIVE) Urine Urobilinogen 2.0 H (0.2-1.0) mg/dL Ur Leukocyte Esterase Neg (Negative) Mariela/uL Urine WBC (Auto) 3 (0-5) /hpf Urine RBC (Auto) < 1 (0-3) /hpf Ur Squamous Epith Cells < 1 (0-5) /hpf Urine Bacteria Rare (<OCC) Hyaline Casts 6-10 H (0-2) /lpf Laboratory Results - last 24 hr 10/13/16 10/13/16 06:49 10:03 Lactic Acid 2.3 H Ammonia 43 H Urine Color Catia Urine Clarity Clear Urine pH 5.0 Ur Specific Taft 1.013 Urine Protein 1+ H Urine Glucose (UA) Normal Urine Ketones Negative Urine Blood Negative Urine Nitrate Negative Urine Bilirubin Negative Urine Urobilinogen 2.0 H Ur Leukocyte Esterase Neg Urine WBC (Auto) 3 Urine RBC (Auto) < 1 Ur Squamous Epith Cells < 1 Urine Bacteria Rare Hyaline Casts 6-10 H Fingerstick Blood Sugar Results: 166 <Darius Sanders - Last Filed: 10/13/16 16:22> CCU Objective - Vital Signs / Intake & Output Vital Signs (Last 4 hours): Vital Signs BP 10/13/16 14:12 150/70 Intake and Output (Last 8hrs): Intake & Output 10/13/16 10/13/16 10/13/16 06:59 14:59 22:59 Intake Total 1160 0 Output Total 600 1200 Balance -600 -40 0 Weight 215 lb Intake: Intake, IV Amount 550 0 Right Hand 550 0 Oral 610 Output: Urine 600 550 Urine, Voided 550 Urine/Stool Mix 650 Other: Voiding Method Bedpan # Bowel Movements 1 - Medications Active Medications: Active Medications Generic Name Dose Route Start Last Admin Trade Name Freq PRN Reason Stop Dose Admin Furosemide 20 mg 10/13/16 13:30 10/13/16 14:12 Lasix IVP 20 mg DAILY DAKSHA Administration Gabapentin 300 mg 10/13/16 10:00 10/13/16 10:46 Neurontin PO 300 mg BID DAKSHA Administration Heparin Sodium (Porcine) 5,000 units 10/13/16 14:00 10/13/16 14:04 Heparin SC 5,000 units Q12H DAKSHA Administration Piperacillin Sod/Tazobactam Sod 50 mls @ 100 mls/hr 10/13/16 06:45 10/13/16 12: 25 Zosyn 2.25 Gm Iv Premix IVPB 100 mls/hr Q6H DAKSHA Administration Lactulose 30 gm 10/13/16 10:30 10/13/16 10:48 Enulose PO 30 gm Q6H DAKSHA Administration Prednisone 40 mg 10/13/16 10:00 10/13/16 10:35 Prednisone Tab PO 40 mg DAILY DAKSHA Administration Rifaximin 550 mg 10/13/16 10:45 10/13/16 11:12 Xifaxan PO 550 mg BID DAKSHA Administration Fluticasone/Salmeterol 1 puff 10/13/16 08:00 10/13/16 08:29 Advair Diskus 250/50 INH Not Given RQ12 [facility] Spironolactone 50 mg 10/13/16 13:27 10/13/16 14:05 Aldactone PO 50 mg DAILY DAKSHA Administration - Patient Studies Lab Studies: Lab Studies 10/13/16 10/13/16 10/13/16 Range/Units 14:21 12:31 10:03 Lactic Acid 2.3 H (0.7-2.1) mmol/L Ammonia 43 H (9-33) umol/L Urine Color (YELLOW) Urine Clarity (Clear) Urine pH (5.0-8.0) Ur Specific Taft (1.003-1.030) Urine Protein (NEGATIVE) mg/dL Urine Glucose (UA) (Normal) mg/dL Urine Ketones (NEGATIVE) mg/dL Urine Blood (NEGATIVE) Urine Nitrate (NEGATIVE) Urine Bilirubin (NEGATIVE) Urine Urobilinogen (0.2-1.0) mg/dL Ur Leukocyte Esterase (Negative) Mariela/uL Urine WBC (Auto) (0-5) /hpf Urine RBC (Auto) (0-3) /hpf Ur Squamous Epith Cells (0-5) /hpf Urine Bacteria (<OCC) Hyaline Casts (0-2) /lpf Urine HCG, Qual Negative (NEGATIVE) Urine Opiates Screen Negative (NEGATIVE) Urine Methadone Screen Negative (NEGATIVE) Ur Barbiturates Screen Negative (NEGATIVE) Ur Phencyclidine Scrn Negative (NEGATIVE) Ur Amphetamines Screen Negative (NEGATIVE) U Benzodiazepines Scrn Negative (NEGATIVE) U Oth Cocaine Metabols Negative (NEGATIVE) U Cannabinoids Screen Negative (NEGATIVE) 10/13/16 Range/Units 06:49 Lactic Acid (0.7-2.1) mmol/L Ammonia (9-33) umol/L Urine Color Catia (YELLOW) Urine Clarity Clear (Clear) Urine pH 5.0 (5.0-8.0) Ur Specific Taft 1.013 (1.003-1.030) Urine Protein 1+ H (NEGATIVE) mg/dL Urine Glucose (UA) Normal (Normal) mg/dL Urine Ketones Negative (NEGATIVE) mg/dL Urine Blood Negative (NEGATIVE) Urine Nitrate Negative (NEGATIVE) Urine Bilirubin Negative (NEGATIVE) Urine Urobilinogen 2.0 H (0.2-1.0) mg/dL Ur Leukocyte Esterase Neg (Negative) Mariela/uL Urine WBC (Auto) 3 (0-5) /hpf Urine RBC (Auto) < 1 (0-3) /hpf Ur Squamous Epith Cells < 1 (0-5) /hpf Urine Bacteria Rare (<OCC) Hyaline Casts 6-10 H (0-2) /lpf Urine HCG, Qual (NEGATIVE) Urine Opiates Screen (NEGATIVE) Urine Methadone Screen (NEGATIVE) Ur Barbiturates Screen (NEGATIVE) Ur Phencyclidine Scrn (NEGATIVE) Ur Amphetamines Screen (NEGATIVE) U Benzodiazepines Scrn (NEGATIVE) U Oth Cocaine Metabols (NEGATIVE) U Cannabinoids Screen (NEGATIVE) Laboratory Results - last 24 hr 10/13/16 10/13/16 10/13/16 06:49 10:03 12:31 Lactic Acid 2.3 H Ammonia 43 H Urine Color Catia Urine Clarity Clear Urine pH 5.0 Ur Specific Taft 1.013 Urine Protein 1+ H Urine Glucose (UA) Normal Urine Ketones Negative Urine Blood Negative Urine Nitrate Negative Urine Bilirubin Negative Urine Urobilinogen 2.0 H Ur Leukocyte Esterase Neg Urine WBC (Auto) 3 Urine RBC (Auto) < 1 Ur Squamous Epith Cells < 1 Urine Bacteria Rare Hyaline Casts 6-10 H Urine HCG, Qual Urine Opiates Screen Negative Urine Methadone Screen Negative Ur Barbiturates Screen Negative Ur Phencyclidine Scrn Negative Ur Amphetamines Screen Negative U Benzodiazepines Scrn Negative U Oth Cocaine Metabols Negative U Cannabinoids Screen Negative 10/13/16 14:21 Lactic Acid Ammonia Urine Color Urine Clarity Urine pH Ur Specific Taft Urine Protein Urine Glucose (UA) Urine Ketones Urine Blood Urine Nitrate Urine Bilirubin Urine Urobilinogen Ur Leukocyte Esterase Urine WBC (Auto) Urine RBC (Auto) Ur Squamous Epith Cells Urine Bacteria Hyaline Casts Urine HCG, Qual Negative Urine Opiates Screen Urine Methadone Screen Ur Barbiturates Screen Ur Phencyclidine Scrn Ur Amphetamines Screen U Benzodiazepines Scrn U Oth Cocaine Metabols U Cannabinoids Screen Critical Care Progress Note - Nutrition Nutrition: Nutrition Category Date Time Status Altered GI/Hepatic Diet [DIET] Diets 10/13/16 Lunch Active Attending/Attestation - Attestation I have personally seen and examined this patient.: Yes I have fully participated in the care of the patient.: Yes I have reviewed all pertinent clinical information: Yes Notes (Text): 10/13/16 16:18 I have seen and examined the patient. Medical records, lab studies, and imaging were reviewed by me and a management plan was formulated on multidisciplinary rounds with resident . I agree with their above documented assessment and plan. Patient came in with metabolic encephalopathy secondary to hypercapnia. Patient has improved since arriving. She is being treated for possible SBP with Zosyn. No obvious ascitic fluid seen on ultrasound of the abdomen, therefore no way to perform paracentesis. She was also started on Rifaximin and Lactulose for hyperammonemia from ETOH liver cirrhosis. She may need prednisone, but side effect profile with swelling and edema was not favorable according to the patient. Started on Spironolactone and Lasix. Critical Care Time 80 minutes. Multi-disciplinary rounds were performed with house staff, nursing, speech therapy, respiratory therapy, pharmacy and nutrition with integrated input from the primary team/attending and other consulting services. The documented time is cumulative and includes review of patient data/exams/labs/chart review and examination of the patient on rounds and throughout the day; time is exclusive of any procedures or teaching time.
--- NOTE | 2016-10-13 11:51 | HP ---
A 31-year-old female, history of alcoholism, hepatic cirrhosis, admitted to the hospital with chief c omplaint of ____, weakness, fatigue, tiredness. The patient came to the hospital, was advised admiss ion. The patient was recently discharged from [facility]. Liver disease from liver f ailure. The patient continues to drink. PHYSICAL EXAMINATION: GENERAL: The patient is obtunded. VITAL SIGNS: Temperature 98, pulse 90. HEENT: Within normal limits. NECK: Supple. CHEST: Symmetrical. HEART: Regular. ABDOMEN: Distended. EXTREMITIES: Positive edema. The patient suffers from ____ liver failure, rule out sepsis. The patient will get antibiotics, supp ortive care. Poor prognosis. Fara Quintero MD cc: [phone] TT: 10/13/2016 10:56:36 tn 10/13/2016 10:49:31
[2016-10-13] MEDS ORDERED: Lidocaine 2% Inj (20ml) INFIL ONE (12:32)
--- NOTE | 2016-10-13 12:59 | PCM.SEPTIC ---
Sepsis Progress Note - Reassessment Type Date of Evaluation: 10/13/16 Time of Evaluation: 12:58 Reassessment Type: Non-invasive reassessment - Non Invasive Reassessment Were the most recent vital sign reviewed: Yes Vital Sign (Latest): Temp Pulse Resp BP Pulse Ox 98.5 F 122 H 20 154/76 H 93 L 10/13/16 08:00 10/13/16 09:00 10/13/16 09:00 10/13/16 09:00 10/13/16 09:00 Cardiovascular: Yes: Regular Rate, Rhythm Respiratory: Yes: Normal Breath Sounds Capillary Refill: Normal (Less than 2 sec) Skin: Jaundice - Invasive Reassessment (complete 2 of 4) Was a Central Venous Pressure Measurement obtained within 6 Hours after the presentation of septic shock: No Was a central venous oxygen measurement obtained within 6 hours after the presentation of septic shock: No Was a bedside cardiovascular ultrasound performed within 6 hours after the presentation of septic shock: No Was a passive leg raise performed or was a fluid challenge performed within 6 hrs of the initial fluid bolus: No Fluid Challenge performed: No
[2016-10-13] MEDS ORDERED: Oxycodone/Acetaminophen 5/325 mg Tab PO STA (14:07)
[2016-10-13] MEDS: Budesonide 0.5 mg/2 ml Inhal Susp UD INH SCH (19:40)
[2016-10-14] MEDS: Piperacill/Tazo 2.25gm in Dex 50 ML IVPB SCH ×4 (00:45→17:50)
[2016-10-14 07:41] LABS: BASO # 0.4 K/uL (0.0-0.2); BASO % 0.7 % (0.0-2.0); EOS # 0.1 K/uL (0.0-0.7); EOS % 0.3 % (0.0-4.0); HEMATOCRIT 26.3 % (34.0-47.0); LYMPH # 1.7 K/uL (1.0-4.3); LYMPH % 3.3 % (20.0-40.0); MEAN CELL VOLUME 110.4 fL (81.0-99.0); MEAN CORPUSCULAR HEMOGLOBIN 33.1 pg (27.0-31.0); MEAN PLATELET VOLUME 9.4 fL (7.2-11.7); MONO # 1.3 K/uL (0.0-0.8); MONO % 2.4 % (0.0-10.0); NRBC % 0.1 % (0.0-2.0); PLATELET COUNT 347 K/uL (130-400); RED CELL DISTRIBUTION WIDTH 18.9 % (11.5-14.5)
[2016-10-14] MEDS: Budesonide 0.5 mg/2 ml Inhal Susp UD INH SCH ×2 (07:42→19:08)
[2016-10-14 07:43] LABS: WHITE BLOOD COUNT 52.1 K/uL (4.8-10.8)
[2016-10-14 07:56] LABS: CHLORIDE 92 mmol/L (98-107); POTASSIUM 3.2 mmol/L (3.6-5.2); SODIUM 139 mmol/L (132-148)
[2016-10-14 07:58] LABS: GFR AFRICAN-AMERICAN > 60
[2016-10-14 07:59] LABS: ALB/GLOB RATIO 1.1 (1.0-2.1); ALKALINE PHOSPHATASE 127 U/L (38-126); ALT/SGPT 73 U/L (9-52); AST/SGOT 196 U/L (14-36); BILIRUBIN,TOTAL 12.2 mg/dL (0.2-1.3); BLOOD UREA NITROGEN 10 mg/dL (7-17); CALCIUM 8.6 mg/dl (8.6-10.4); CARBON DIOXIDE 33 mmol/L (22-30); GLUCOSE,RANDOM 103 mg/dL (65-105); PHOSPHOROUS 2.2 mg/dL (2.5-4.5); TOTAL PROTEIN 6.7 g/dL (6.3-8.3)
[2016-10-14 08:00] LABS: MAGNESIUM 1.8 mg/dL (1.6-2.3)
[2016-10-14 09:32] LABS: NEUTROPHIL 85 % (50-75); REACTIVE LYMPHOCYTES 1 % (0-0); TOTAL CELLS COUNTED 100
[2016-10-14 09:34] LABS: LARGE PLATELETS PRESENT
[2016-10-14] MEDS: Potassium & Sodium Phosphate PO SCH ×3 (10:57→17:51)
[2016-10-14] MEDS: Potassium Chloride 20 mEq ER Tab PO SCH (10:57)
[2016-10-14] MEDS: Albuterol-Ipratrop 3 mg / 0.5 (3 ml) UD INH SCH ×2 (13:40→19:03)
--- NOTE | 2016-10-14 13:51 | CP.CCUPN ---
CCU Subjective - Physician Review Subjective (Free Text): 10/14/16 13:47 Patient has improved clinically. Much more alert and no complaints of abdominal pain. CCU Objective - Vital Signs / Intake & Output Vital Signs (Last 4 hours): Vital Signs Temp Pulse Resp BP Pulse Ox 10/14/16 12:00 98.2 F 117 H 20 139/66 95 Intake and Output (Last 8hrs): Intake & Output 10/13/16 10/14/16 10/14/16 22:59 06:59 14:59 Intake Total 786 083 9105 Output Total 0296 744 5711 Balance -1190 -110 -240 Intake: Intake, IV Amount 50 50 100 Right Hand 50 50 100 Oral 660 540 960 Output: Urine 0 1300 Urine, Voided 0 1300 Urine/Stool Mix 1900 700 Other: # Voids Urine, Voided 1 # Bowel Movements 1 - Physical Exam Head: Positive for: Atraumatic, Normocephalic Pupils: Positive for: PERRL Extroacular Muscles: Positive for: EOMI Conjunctiva: Positive for: Icteric Mouth: Positive for: Moist Mucous Membranes Respiratory/Chest: Positive for: Rales Cardiovascular: Positive for: Regular Rate and Rhythm Abdomen: Positive for: Normal Bowel Sounds. Negative for: Tenderness, Distention Neurological: Positive for: GCS=15, CN II-XII Intact Skin: Positive for: Warm Psychiatric: Positive for: Alert, Oriented x 3 - Medications Active Medications: Active Medications Generic Name Dose Route Start Last Admin Trade Name Freq PRN Reason Stop Dose Admin Albuterol/Ipratropium 3 ml 10/14/16 14:00 10/14/16 13:40 Duoneb 3 Mg/0.5 Mg (3 Ml) Ud INH 3 ml RQ6 DAKSHA Administration Budesonide 0.5 mg 10/13/16 20:00 10/14/16 07:42 Pulmicort Respules INH 0.5 mg RQ12 DAKSHA Administration Furosemide 40 mg 10/15/16 10:00 Lasix PO DAILY DAKSHA Gabapentin 300 mg 10/13/16 10:00 10/14/16 09:35 Neurontin PO 300 mg BID DAKSHA Administration Heparin Sodium (Porcine) 5,000 units 10/14/16 22:00 Heparin SC Q12H DAKSHA Piperacillin Sod/Tazobactam Sod 50 mls @ 100 mls/hr 10/13/16 06:45 10/14/16 12: 30 Zosyn 2.25 Gm Iv Premix IVPB 100 mls/hr Q6H DAKSHA Administration Lactulose 30 gm 10/13/16 23:15 Enulose PO BID PRN Other Morphine Sulfate 2 mg 10/13/16 23:17 10/14/16 08:14 Morphine IVP 2 mg Q6 PRN Administration Potassium Chloride 20 meq 10/14/16 10:15 10/14/16 10:57 K-Dur 20 Meq Er Tab PO 20 meq DAILY DAKSHA Administration Potassium Phos/Sodium Phos 1 pkt 10/14/16 10:00 10/14/16 13:27 Neutra-Phos PO 10/15/16 10:01 1 pkt TID DAKSHA Administration Prednisone 40 mg 10/13/16 10:00 10/14/16 09:35 Prednisone Tab PO 40 mg DAILY DAKSHA Administration Rifaximin 550 mg 10/13/16 10:45 10/14/16 09:35 Xifaxan PO 550 mg BID DAKSHA Administration Spironolactone 50 mg 10/13/16 13:27 10/14/16 09:35 Aldactone PO 50 mg DAILY DAKSHA Administration - Patient Studies Lab Studies: Microbiology Studies 10/13/16 08:00 Urine Culture - Final Urine No Growth (<1,000 CFU/ML) Lab Studies 10/14/16 10/13/16 10/13/16 Range/Units 07:29 14:38 14:21 WBC 52.1 H* (4.8-10.8) K/uL RBC 2.39 L (3.80-5.20) Mil/uL Hgb 7.9 L (11.0-16.0) g/dL Hct 26.3 L (34.0-47.0) % MCV 110.4 H (81.0-99.0) fL MCH 33.1 H (27.0-31.0) pg MCHC 30.0 L (33.0-37.0) g/dL RDW 18.9 H (11.5-14.5) % Plt Count 347 (130-400) K/uL MPV 9.4 (7.2-11.7) fL Neut % (Auto) 93.3 H (50.0-75.0) % Lymph % (Auto) 3.3 L (20.0-40.0) % Haines % (Auto) 2.4 (0.0-10.0) % Eos % (Auto) 0.3 (0.0-4.0) % Baso % (Auto) 0.7 (0.0-2.0) % Neut # 48.6 H (1.8-7.0) K/uL Lymph # 1.7 (1.0-4.3) K/uL Haines # 1.3 H (0.0-0.8) K/uL Eos # 0.1 (0.0-0.7) K/uL Baso # 0.4 H (0.0-0.2) K/uL Neutrophils % (Manual) 85 H (50-75) % Band Neutrophils % 6 H (0-2) % Lymphocytes % (Manual) 2 L (20-40) % Reactive Lymphs % 1 H (0-0) % Monocytes % (Manual) 6 (0-10) % Platelet Estimate Normal (NORMAL) Large Platelets Present Polychromasia Slight Hypochromasia (manual) Slight Poikilocytosis (manual Slight Anisocytosis (manual) Moderate Macrocytosis (manual) Slight Target Cells Slight Ovalocytes Slight Sodium 139 (132-148) mmol/L Potassium 3.2 L (3.6-5.2) mmol/L Chloride 92 L (98-107) mmol/L Carbon Dioxide 33 H (22-30) mmol/L Anion Gap 17 (10-20) BUN 10 (7-17) mg/dL Creatinine 0.7 (0.7-1.2) MG/DL Est GFR ( Amer) > 60 Est GFR (Non-Af Amer) > 60 Random Glucose 103 (65-105) mg/dL Calcium 8.6 (8.6-10.4) mg/dl Phosphorus 2.2 L (2.5-4.5) mg/dL Magnesium 1.8 (1.6-2.3) mg/dL Total Bilirubin 12.2 H (0.2-1.3) mg/dL AST 196 H D (14-36) U/L ALT 73 H (9-52) U/L Alkaline Phosphatase 127 H (38-126) U/L Total Protein 6.7 (6.3-8.3) g/dL Albumin 3.5 (3.5-5.0) g/dL Globulin 3.2 (2.2-3.9) gm/dL Albumin/Globulin Ratio 1.1 (1.0-2.1) Urine HCG, Qual Negative (NEGATIVE) C. difficile Ag & Toxin Negative (NEGATIVE) Laboratory Results - last 24 hr 10/13/16 10/13/16 10/14/16 14:21 14:38 07:29 WBC 52.1 H* RBC 2.39 L Hgb 7.9 L Hct 26.3 L MCV 110.4 H MCH 33.1 H MCHC 30.0 L RDW 18.9 H Plt Count 347 MPV 9.4 Neut % (Auto) 93.3 H Lymph % (Auto) 3.3 L Haines % (Auto) 2.4 Eos % (Auto) 0.3 Baso % (Auto) 0.7 Neut # 48.6 H Lymph # 1.7 Haines # 1.3 H Eos # 0.1 Baso # 0.4 H Neutrophils % (Manual) 85 H Band Neutrophils % 6 H Lymphocytes % (Manual) 2 L Reactive Lymphs % 1 H Monocytes % (Manual) 6 Platelet Estimate Normal Large Platelets Present Polychromasia Slight Hypochromasia (manual) Slight Poikilocytosis (manual Slight Anisocytosis (manual) Moderate Macrocytosis (manual) Slight Target Cells Slight Ovalocytes Slight Sodium 139 Potassium 3.2 L Chloride 92 L Carbon Dioxide 33 H Anion Gap 17 BUN 10 Creatinine 0.7 Est GFR ( Amer) > 60 Est GFR (Non-Af Amer) > 60 Random Glucose 103 Calcium 8.6 Phosphorus 2.2 L Magnesium 1.8 Total Bilirubin 12.2 H AST 196 H D ALT 73 H Alkaline Phosphatase 127 H Total Protein 6.7 Albumin 3.5 Globulin 3.2 Albumin/Globulin Ratio 1.1 Urine HCG, Qual Negative C. difficile Ag & Toxin Negative Fingerstick Blood Sugar Results: 166 Review of Systems - Review of Systems All systems: reviewed and no additional remarkable complaints except - Respiratory Respiratory: Cough Critical Care Progress Note - Nutrition Nutrition: Nutrition Category Date Time Status Altered GI/Hepatic Diet [DIET] Diets 10/13/16 Lunch Active Assessment/Plan (1) Hepatic encephalopathy Assessment and plan: Assessment: 31 F with PMHx of Anxiety, asthma, HTN, and alcoholic hepatitis with decompensated liver failure, presents following seizure. Neuro: AAOx3 Neurochecks q6h Seizure D/O - Gabapentin 300mg PO BID Hepatic Encephalopathy on presentation - Ammonia 53 on presentation started Rifaximin albumin infusion on day 1, repeat on day 3 Cardio: Tachycardic, Normotensive Hypokalemia - K+ 3.0 on presentation, repleted Pulm: Asthma - pulmicort substituted for home Advair 3L O2 Duonebs q6h, considering underlying pneumonia GI: Bedside Ultrasound - No ascitic fluid appreciated, therefore no paracentesis at this time Abdominal US (10/13/2016): f/u official read Hyperammonemia - Rifaximin 550mg PO BID Edema - Lasix 20mg IV daily Hyperaldosteronism - Spirinolactone 50mg Daily Alcoholic hepatitis - Prednisone 40mg PO Daily GI/hepatic diet /Renal: Monitor I/Os Heme: Coagulopathy PT/INR/PTT: 13/02/. severe leucocytosis - downtrending ID: CODE SEPSIS Criteria: Leukocytosis 60.5, Tachycardic, Tachypnic - left shift, bandemia - Pt on home prednisone - source of sepsis not clear Zosyn 2.25 Q6h IV, possibly treating SBP or pneumonia Vancomycin given once in ED Rifaximin 550mg PO BID Cdiff - negative f/u blood cx, urine cx, MRSA screen Hx of Benzo/Alcohol Abuse - UDS negative MSKLTL: Bilateral leg swelling, bedridden for one week - f/u Venous dopplers, bilaterally f/u PT/OT Prophylaxis: DVT: Heparin 5000 units q12h GI: not currently indicated Crtical Care Time spent 35 minutes Multi-disciplinary rounds were performed with house staff, nursing, speech therapy, respiratory therapy, pharmacy and nutrition with integrated input from the primary team/attending and other consulting services. The documented time is cumulative and includes review of patient data/exams/labs/chart review and examination of the patient on rounds and throughout the day; time is exclusive of any procedures or teaching time. Current Visit: Yes Status: Acute
[2016-10-15] MEDS: Piperacill/Tazo 2.25gm in Dex 50 ML IVPB SCH ×4 (00:45→17:49)
[2016-10-15] MEDS: Albuterol-Ipratrop 3 mg / 0.5 (3 ml) UD INH SCH ×4 (01:45→19:35)
[2016-10-15 06:56] LABS: BASO # 0.2 K/uL (0.0-0.2); BASO % 0.4 % (0.0-2.0); EOS # 0.2 K/uL (0.0-0.7); EOS % 0.3 % (0.0-4.0); HEMATOCRIT 25.1 % (34.0-47.0); LYMPH # 1.5 K/uL (1.0-4.3); LYMPH % 2.6 % (20.0-40.0); MEAN CELL VOLUME 108.8 fL (81.0-99.0); MEAN CORPUSCULAR HEMOGLOBIN 33.5 pg (27.0-31.0); MEAN CORPUSCULAR HGB CONC 30.7 g/dL (33.0-37.0); MEAN PLATELET VOLUME 9.1 fL (7.2-11.7); MONO # 0.4 K/uL (0.0-0.8); MONO % 0.7 % (0.0-10.0); PLATELET COUNT 324 K/uL (130-400); RED CELL DISTRIBUTION WIDTH 18.4 % (11.5-14.5)
[2016-10-15 06:59] LABS: WHITE BLOOD COUNT 55.8 K/uL (4.8-10.8)
[2016-10-15 07:03] LABS: CHLORIDE 92 mmol/L (98-107); POTASSIUM 3.6 mmol/L (3.6-5.2); SODIUM 138 mmol/L (132-148)
[2016-10-15 07:05] LABS: AST/SGOT 212 U/L (14-36); BILIRUBIN,TOTAL 11.7 mg/dL (0.2-1.3); CARBON DIOXIDE 31 mmol/L (22-30); GFR AFRICAN-AMERICAN > 60; TOTAL PROTEIN 6.5 g/dL (6.3-8.3)
[2016-10-15 07:06] LABS: ALKALINE PHOSPHATASE 131 U/L (38-126); ALT/SGPT 72 U/L (9-52); BLOOD UREA NITROGEN 13 mg/dL (7-17); CALCIUM 8.5 mg/dl (8.6-10.4); GLUCOSE,RANDOM 99 mg/dL (65-105); MAGNESIUM 1.8 mg/dL (1.6-2.3); PHOSPHOROUS 2.4 mg/dL (2.5-4.5)
[2016-10-15 07:07] LABS: INR 1.4
[2016-10-15] MEDS: Budesonide 0.5 mg/2 ml Inhal Susp UD INH SCH ×2 (07:45→19:35)
[2016-10-15 08:55] LABS: EOSINOPHIL 1 % (0-4); NEUTROPHIL 89 % (50-75); TOTAL CELLS COUNTED 100
[2016-10-15 08:58] LABS: LARGE PLATELETS PRESENT
[2016-10-15] MEDS: Potassium Chloride 20 mEq ER Tab PO SCH (09:29)
[2016-10-15] MEDS: Potassium & Sodium Phosphate PO SCH (09:46)
--- NOTE | 2016-10-15 10:16 | CP.CCUPN ---
CCU Subjective - Physician Review Events Since Last Encounter (Free Text): 10/15/16 10:07 Patient is a 31-year-old female with a history of alcoholic liver disease, alcoholic liver disease with hepatic failure, possible liver cirrhosis admitted to the hospital with an episode of seizure activities and also lethargic and incontinence. Patient in the past had a history of multiple seizure activities most likely alcoholic related she also has a history of asthma hypertension Patient admitted to the intensive care unit with highly elevated white count, unclear source. Currently patient is being treated for possible sepsis of unclear source. Patient is currently feeling slightly better, but anxious and the anxiety noted. She did not sleep well last night. She had no vomiting, episodes of loose BM noted on lactulose CCU Objective - Vital Signs / Intake & Output Vital Signs (Last 4 hours): Vital Signs Temp Pulse Resp BP Pulse Ox 10/15/16 09:29 135/82 10/15/16 09:25 130 H 24 135/82 95 10/15/16 08:00 98.6 F 121 H 22 138/78 96 Intake and Output (Last 8hrs): Intake & Output 10/14/16 10/15/16 10/15/16 22:59 06:59 14:59 Intake Total 650 860 580 Output Total 1200 1100 600 Balance -550 -240 -20 Intake: Intake, IV Amount 50 100 Right Hand 50 100 Oral 600 760 580 Output: Urine 800 1100 200 Urine, Voided 800 1100 200 Urine/Stool Mix 400 400 Other: # Voids Urine, Voided 1 # Bowel Movements 1 1 - Physical Exam Narrative Physical Exam (Free Text): 10/15/16 10:07 On examination: Vital signs reviewed Chest wheezing noted bilaterally. Regular heart sound noted. Abdomen fluid thrill noted, edema present Bilateral pedal edema large amount noted Patient is alert awake oriented Head: Positive for: Atraumatic, Normocephalic Pupils: Positive for: PERRL Extroacular Muscles: Positive for: EOMI Conjunctiva: Positive for: Icteric Mouth: Positive for: Moist Mucous Membranes Respiratory/Chest: Positive for: Rales Cardiovascular: Positive for: Regular Rate and Rhythm Abdomen: Positive for: Normal Bowel Sounds. Negative for: Tenderness, Distention Neurological: Positive for: GCS=15, CN II-XII Intact Skin: Positive for: Warm Psychiatric: Positive for: Alert, Oriented x 3 - Medications Active Medications: Active Medications Generic Name Dose Route Start Last Admin Trade Name Freq PRN Reason Stop Dose Admin Albuterol/Ipratropium 3 ml 10/14/16 14:00 10/15/16 07:45 Duoneb 3 Mg/0.5 Mg (3 Ml) Ud INH 3 ml RQ6 DAKSHA Administration Alprazolam 0.25 mg 10/15/16 09:38 10/15/16 09:53 Xanax PO 10/17/16 09:39 0.25 mg BID PRN Administration Anxiety Budesonide 0.5 mg 10/13/16 20:00 10/15/16 07:45 Pulmicort Respules INH 0.5 mg RQ12 DAKSHA Administration Furosemide 20 mg 10/15/16 10:00 Lasix IVP DAILY [facility] Gabapentin 300 mg 10/13/16 10:00 10/15/16 09:30 Neurontin PO 300 mg BID DAKSHA Administration Heparin Sodium (Porcine) 5,000 units 10/14/16 22:00 10/15/16 09:28 Heparin SC 5,000 units Q12H DAKSHA Administration Piperacillin Sod/Tazobactam Sod 50 mls @ 100 mls/hr 10/13/16 06:45 10/15/16 07: 09 Zosyn 2.25 Gm Iv Premix IVPB 100 mls/hr Q6H DAKSHA Administration Lactulose 30 gm 10/15/16 10:00 10/15/16 09:50 Enulose PO Not Given DAILY [facility] Potassium Chloride 20 meq 10/14/16 10:15 10/15/16 09:29 K-Dur 20 Meq Er Tab PO 20 meq DAILY DAKSHA Administration Prednisone 20 mg 10/15/16 09:38 10/15/16 09:48 Prednisone Tab PO Not Given DAILY [facility] Rifaximin 550 mg 10/13/16 10:45 10/15/16 09:30 Xifaxan PO 550 mg BID DAKSHA Administration Spironolactone 50 mg 10/13/16 13:27 10/15/16 09:29 Aldactone PO 50 mg DAILY DAKSHA Administration - Patient Studies Lab Studies: Microbiology Studies 10/13/16 09:00 MRSA Culture (Admit) - Final Naris MRSA NOT DETECTED 10/14/16 10:11 Gram Stain - Final Sputum 10/13/16 08:00 Urine Culture - Final Urine No Growth (<1,000 CFU/ML) Lab Studies 10/15/16 Range/Units 06:52 WBC 55.8 H* (4.8-10.8) K/uL RBC 2.31 L (3.80-5.20) Mil/uL Hgb 7.7 L (11.0-16.0) g/dL Hct 25.1 L (34.0-47.0) % MCV 108.8 H (81.0-99.0) fL MCH 33.5 H (27.0-31.0) pg MCHC 30.7 L (33.0-37.0) g/dL RDW 18.4 H (11.5-14.5) % Plt Count 324 (130-400) K/uL MPV 9.1 (7.2-11.7) fL Neut % (Auto) 96.0 H (50.0-75.0) % Lymph % (Auto) 2.6 L (20.0-40.0) % Snyder % (Auto) 0.7 (0.0-10.0) % Eos % (Auto) 0.3 (0.0-4.0) % Baso % (Auto) 0.4 (0.0-2.0) % Neut # 53.5 H (1.8-7.0) K/uL Lymph # 1.5 (1.0-4.3) K/uL Snyder # 0.4 (0.0-0.8) K/uL Eos # 0.2 (0.0-0.7) K/uL Baso # 0.2 (0.0-0.2) K/uL Neutrophils % (Manual) 89 H (50-75) % Band Neutrophils % 7 H (0-2) % Lymphocytes % (Manual) 1 L (20-40) % Monocytes % (Manual) 2 (0-10) % Eosinophils % (Manual) 1 (0-4) % Toxic Granulation Present Platelet Estimate Normal (NORMAL) Large Platelets Present Polychromasia Slight Hypochromasia (manual) Slight Basophilic Stippling Slight Anisocytosis (manual) Slight Macrocytosis (manual) Slight PT 16.0 H (9.7-12.2) SECONDS INR 1.4 APTT 29 (21-34) SECONDS Sodium 138 (132-148) mmol/L Potassium 3.6 (3.6-5.2) mmol/L Chloride 92 L (98-107) mmol/L Carbon Dioxide 31 H (22-30) mmol/L Anion Gap 19 (10-20) BUN 13 (7-17) mg/dL Creatinine 0.6 L (0.7-1.2) MG/DL Est GFR ( Amer) > 60 Est GFR (Non-Af Amer) > 60 Random Glucose 99 (65-105) mg/dL Calcium 8.5 L (8.6-10.4) mg/dl Phosphorus 2.4 L (2.5-4.5) mg/dL Magnesium 1.8 (1.6-2.3) mg/dL Total Bilirubin 11.7 H (0.2-1.3) mg/dL AST 212 H (14-36) U/L ALT 72 H (9-52) U/L Alkaline Phosphatase 131 H (38-126) U/L Ammonia 49 H (9-33) umol/L Total Protein 6.5 (6.3-8.3) g/dL Albumin 3.2 L (3.5-5.0) g/dL Globulin 3.3 (2.2-3.9) gm/dL Albumin/Globulin Ratio 1.0 (1.0-2.1) Laboratory Results - last 24 hr 10/15/16 06:52 WBC 55.8 H* RBC 2.31 L Hgb 7.7 L Hct 25.1 L MCV 108.8 H MCH 33.5 H MCHC 30.7 L RDW 18.4 H Plt Count 324 MPV 9.1 Neut % (Auto) 96.0 H Lymph % (Auto) 2.6 L Snyder % (Auto) 0.7 Eos % (Auto) 0.3 Baso % (Auto) 0.4 Neut # 53.5 H Lymph # 1.5 Snyder # 0.4 Eos # 0.2 Baso # 0.2 Neutrophils % (Manual) 89 H Band Neutrophils % 7 H Lymphocytes % (Manual) 1 L Monocytes % (Manual) 2 Eosinophils % (Manual) 1 Toxic Granulation Present Platelet Estimate Normal Large Platelets Present Polychromasia Slight Hypochromasia (manual) Slight Basophilic Stippling Slight Anisocytosis (manual) Slight Macrocytosis (manual) Slight PT 16.0 H INR 1.4 APTT 29 Sodium 138 Potassium 3.6 Chloride 92 L Carbon Dioxide 31 H Anion Gap 19 BUN 13 Creatinine 0.6 L Est GFR ( Amer) > 60 Est GFR (Non-Af Amer) > 60 Random Glucose 99 Calcium 8.5 L Phosphorus 2.4 L Magnesium 1.8 Total Bilirubin 11.7 H AST 212 H ALT 72 H Alkaline Phosphatase 131 H Ammonia 49 H Total Protein 6.5 Albumin 3.2 L Globulin 3.3 Albumin/Globulin Ratio 1.0 Fingerstick Blood Sugar Results: 166 Review of Systems - Review of Systems Review of Systems: Generalized any bile and anasarca noted. Anxiety, and agitation sometimes noted. Mild tachycardia noted Critical Care Progress Note - Nutrition Nutrition: Nutrition Category Date Time Status Altered GI/Hepatic Diet [DIET] Diets 10/13/16 Lunch Active Assessment/Plan (1) Hepatic encephalopathy Current Visit: Yes Status: Acute (2) Seizure Current Visit: Yes Status: Acute (3) Sepsis Assessment and plan: Patient is still having highly elevated white count. Sepsis but unclear source. Leukemoid reaction possible. Loculated abscess cannot be ruled out. We will get the CT of the abdomen if needed. Continue the antibiotic. I added Xanax which patient used to take in the past. Continue to monitor the liver function. We'll follow the patient Current Visit: Yes Status: Acute (4) Alcohol dependence Current Visit: No Status: Acute
[2016-10-15] MEDS ORDERED: Iohexol 240 (50 ml) PO ONE (10:45)
--- NOTE | 2016-10-15 10:55 | RAD ---
HISTORY: ff up chf vs pneumonia COMPARISON: Chest x-ray performed 10/13/16 TECHNIQUE: Chest, one view. FINDINGS: Examination limited by habitus and hypoinflation. LUNGS: Layering right-sided pleural effusion and associated consolidation. No definite pneumothorax. Please note that chest x-ray has limited sensitivity for the detection of pulmonary masses. CARDIOVASCULAR: Cardiomegaly. OSSEOUS STRUCTURES: No acute osseous abnormality identified. VISUALIZED UPPER ABDOMEN: Unremarkable. OTHER FINDINGS: None. IMPRESSION: Cardiomegaly. Layering right-sided pleural effusion and associated consolidation.
--- NOTE | 2016-10-15 17:51 | CT ---
CT abdomen and pelvis without IV contrast Indication: Ascites and abscess Technique: Contiguous axial images of the abdomen and pelvis. Oral contrast was administered. No IV contrast given. Coronal and Sagittal reformats generated and reviewed. This CT exam was performed using 1 or more of the following dose reduction techniques: Automated exposure control, adjustment of the MAA and/or kV according to patient size, and/or use of iterative reconstruction technique. Radiation dose: Total exam DLP = 987.18 mGy-cm. Comparison: Abdominal ultrasound performed 09/30/16, CT abdomen and pelvis with IV contrast performed 09/29/16 Findings: The lung bases demonstrate partially imaged right lower lobe consolidation and pleural effusion. Mild left lung base atelectasis. 6 mm left lower lobe pulmonary nodule (series 5, image 22). Small hiatal hernia with evidence of gastroesophageal reflux. Hepatic splenomegaly. Hypoattenuation of the liver compatible with hepatic steatosis. Contracted gallbladder limits evaluation; suspect gallbladder wall thickening and question presence of debris or gallstones. The noncontrast adrenal glands, kidneys, and pancreas appear unremarkable. Small abdominal and pelvic ascites. The stomach is nondistended. The bowel loops appear within normal limits of caliber without evidence of intestinal obstruction. The appendix appears within normal limits of caliber. There is no definite free air. Uterus is present. The urinary bladder appears unremarkable. Soft tissue edema. Multilevel degenerative changes. T9 vertebral body compression fracture deformity re-identified. Impression: Right lower lobe consolidation and pleural effusion. Mild left lung base atelectasis. 6 mm left lower lobe pulmonary nodule. Guidelines by the Fleischner society (radiology 2005; 237:395-400) suggests that in patients with low risk for lung cancer, nodules from 5 mm to 6 mm in diameter should have follow-up in approximately 12 months. In patients with high-risk, such as those were smokers, follow-up is recommended in 6 months. Patients with a known malignancy or risk for metastases should receive 3 month follow-up. Small hiatal hernia with evidence of gastroesophageal reflux. Hepatosplenomegaly. Hepatic steatosis. Gallbladder is contracted which limits evaluation; suspect gallbladder wall thickening and question presence of debris or gallstones. Small abdominal and pelvic ascites. Soft tissue edema. Multilevel degenerative changes. T9 vertebral body compression fracture deformity re-identified.
[2016-10-16] MEDS: Piperacill/Tazo 2.25gm in Dex 50 ML IVPB SCH ×2 (01:48→05:47)
[2016-10-16] MEDS: Albuterol-Ipratrop 3 mg / 0.5 (3 ml) UD INH SCH ×4 (01:57→20:12)
[2016-10-16 06:52] LABS: BASO # 0.3 K/uL (0.0-0.2); BASO % 0.5 % (0.0-2.0); EOS % 0.1 % (0.0-4.0); HEMATOCRIT 26.4 % (34.0-47.0); LYMPH # 1.9 K/uL (1.0-4.3); LYMPH % 3.4 % (20.0-40.0); MEAN CELL VOLUME 110.8 fL (81.0-99.0); MEAN CORPUSCULAR HEMOGLOBIN 32.9 pg (27.0-31.0); MEAN CORPUSCULAR HGB CONC 29.7 g/dL (33.0-37.0); MEAN PLATELET VOLUME 9.9 fL (7.2-11.7); MONO # 1.5 K/uL (0.0-0.8); MONO % 2.7 % (0.0-10.0); NRBC % 0.1 % (0.0-2.0); PLATELET COUNT 336 K/uL (130-400)
[2016-10-16 06:54] LABS: CHLORIDE 89 mmol/L (98-107); POTASSIUM 4.2 mmol/L (3.6-5.2); SODIUM 138 mmol/L (132-148)
[2016-10-16 06:55] LABS: WHITE BLOOD COUNT 54.9 K/uL (4.8-10.8)
[2016-10-16 06:56] LABS: CARBON DIOXIDE 33 mmol/L (22-30); GFR AFRICAN-AMERICAN > 60
[2016-10-16 06:57] LABS: ALKALINE PHOSPHATASE 145 U/L (38-126); ALT/SGPT 73 U/L (9-52); AST/SGOT 249 U/L (14-36); BILIRUBIN,TOTAL 11.4 mg/dL (0.2-1.3); BLOOD UREA NITROGEN 12 mg/dL (7-17); CALCIUM 8.4 mg/dl (8.6-10.4); GLUCOSE,RANDOM 54 mg/dL (65-105); PHOSPHOROUS 2.9 mg/dL (2.5-4.5)
[2016-10-16 06:58] LABS: MAGNESIUM 1.8 mg/dL (1.6-2.3)
--- NOTE | 2016-10-16 07:10 | PN ---
DATE: 10/14/2016 The patient is obtunded, very weak. White count elevated. Alcoholic hepatitis. . Supportive care. . Fara Quintero MD cc: [id number] TT: 10/15/2016 00:43:02 Confirmation # [id number] Dictation # [id number]
--- NOTE | 2016-10-16 08:49 | RAD ---
HISTORY: pneumonia COMPARISON: 10/15/2016 FINDINGS: LUNGS: Moderate to large right pleural effusion with prominent consolidative changes in the right mid to lower lung zone. Venous congestion. Upper lobe granulomatous changes. Scattered nodularity in the upper lung zones. PLEURA: As above. CARDIOVASCULAR: Cardiomegaly. OSSEOUS STRUCTURES: No significant abnormalities. VISUALIZED UPPER ABDOMEN: Normal. OTHER FINDINGS: None. IMPRESSION: Moderate to large right pleural effusion with prominent consolidative changes in the right mid to lower lung zone. Venous congestion. Upper lobe granulomatous changes. Scattered nodularity in the upper lung zones. Cardiomegaly.
[2016-10-16] MEDS: Budesonide 0.5 mg/2 ml Inhal Susp UD INH SCH ×2 (09:02→20:12)
[2016-10-16 09:39] LABS: NEUTROPHIL 79 % (50-75); TOTAL CELLS COUNTED 100
[2016-10-16] MEDS: Potassium Chloride 20 mEq ER Tab PO SCH (09:46)
--- NOTE | 2016-10-16 10:58 | CP.CCUPN ---
<Kwasi De - Last Filed: 10/16/16 10:54> CCU Subjective - Physician Review Subjective (Free Text): 10/16/16 10:54 Pt seen and examined at bedside. Pt's mental status greatly improved over the weekend. Oriented to person, place, time, and context. Pt admits continued diffuse abdominal pain, worst in RUQ/epigastric area, but denies N/V/D/C. She reports improvement in anxiety since restarted on Xanax. Sputum culture positive for Klebsiella pneumonaie, and antibiotics were changed. Critical Care Time Spent (in minutes): 30 CCU Objective - Vital Signs / Intake & Output Vital Signs (Last 4 hours): Vital Signs Pulse Resp BP 10/16/16 09:46 139/77 10/16/16 07:00 128 H 21 10/16/16 06:59 129 H 21 145/87 Intake and Output (Last 8hrs): Intake & Output 10/15/16 10/16/16 10/16/16 22:59 06:59 14:59 Intake Total 970 400 Output Total 3200 800 200 Balance -2230 -400 -200 Weight 217 lb Intake: Intake, IV Amount 50 100 Right Hand 50 Right Forearm 100 Oral 920 300 Output: Urine 200 800 200 Urine, Voided 200 800 200 Urine/Stool Mix 3000 Other: # Bowel Movements 1 - Physical Exam Head: Positive for: Atraumatic, Normocephalic Pupils: Positive for: PERRL Extroacular Muscles: Positive for: EOMI Conjunctiva: Positive for: Icteric Mouth: Positive for: Moist Mucous Membranes Respiratory/Chest: Positive for: Wheezes, Rales. Negative for: Rhonchi Cardiovascular: Positive for: Regular Rate and Rhythm Abdomen: Positive for: Tenderness (diffuse, worse in RUQ/epigastric area), Normal Bowel Sounds. Negative for: Distention Back: Negative for: CVA Tenderness Upper Extremity: Positive for: Normal Inspection Lower Extremity: Positive for: Edema (1+ edema), CALF TENDERNESS Neurological: Positive for: GCS=15, CN II-XII Intact Skin: Positive for: Warm, Dry Psychiatric: Positive for: Alert, Oriented x 3 - Medications Active Medications: Active Medications Generic Name Dose Route Start Last Admin Trade Name Freq PRN Reason Stop Dose Admin Albuterol/Ipratropium 3 ml 10/14/16 14:00 10/16/16 09:02 Duoneb 3 Mg/0.5 Mg (3 Ml) Ud INH 3 ml RQ6 DAKSHA Administration Alprazolam 0.25 mg 10/15/16 09:38 10/15/16 21:53 Xanax PO 10/17/16 09:39 0.25 mg BID PRN Administration Anxiety Budesonide 0.5 mg 10/13/16 20:00 10/16/16 09:02 Pulmicort Respules INH 0.5 mg RQ12 DAKSHA Administration Furosemide 20 mg 10/15/16 10:00 10/16/16 09:46 Lasix IVP 20 mg DAILY DAKSAH Administration Gabapentin 300 mg 10/13/16 10:00 10/16/16 09:46 Neurontin PO 300 mg BID DAKSHA Administration Heparin Sodium (Porcine) 5,000 units 10/14/16 22:00 10/16/16 09:45 Heparin SC 5,000 units Q12H DAKSHA Administration Cefepime HCl 50 mls @ 100 mls/hr 10/16/16 10:45 Maxipime Iv 1 Gm Premix IVPB Q12H DAKSHA Moxifloxacin HCl 250 mls @ 167 mls/hr 10/16/16 11:30 Avelox Iv 400mg/250ml Ns IVPB Q24H DAKSHA Lactulose 30 gm 10/15/16 10:00 10/16/16 09:44 Enulose PO 30 gm DAILY DAKSHA Administration Morphine Sulfate 2 mg 10/16/16 10:45 Morphine IV Q6 PRN Pain, moderate (4-7) Potassium Chloride 20 meq 10/14/16 10:15 10/16/16 09:46 K-Dur 20 Meq Er Tab PO 20 meq DAILY DAKSHA Administration Prednisone 20 mg 10/15/16 09:38 10/16/16 09:45 Prednisone Tab PO 20 mg DAILY DAKSHA Administration Rifaximin 550 mg 10/13/16 10:45 10/16/16 09:44 Xifaxan PO 550 mg BID DAKSHA Administration Spironolactone 50 mg 10/13/16 13:27 10/16/16 09:46 Aldactone PO 50 mg DAILY DAKSHA Administration - Patient Studies Lab Studies: Microbiology Studies 10/14/16 10:11 Gram Stain - Final Sputum Sputum Culture - Final Klebsiella Pneumoniae Ssp Pneu Lab Studies 04/17/17 04/17/17 Range/Units 06:41 06:36 WBC 54.9 H* (4.8-10.8) K/uL RBC 2.38 L (3.80-5.20) Mil/uL Hgb 7.8 L (11.0-16.0) g/dL Hct 26.4 L (34.0-47.0) % MCV 110.8 H D (81.0-99.0) fL MCH 32.9 H (27.0-31.0) pg MCHC 29.7 L (33.0-37.0) g/dL RDW 19.0 H (11.5-14.5) % Plt Count 336 (130-400) K/uL MPV 9.9 (7.2-11.7) fL Neut % (Auto) 93.3 H (50.0-75.0) % Lymph % (Auto) 3.4 L (20.0-40.0) % [place] % (Auto) 2.7 (0.0-10.0) % Eos % (Auto) 0.1 (0.0-4.0) % Baso % (Auto) 0.5 (0.0-2.0) % Neut # 51.3 H (1.8-7.0) K/uL Lymph # 1.9 (1.0-4.3) K/uL [place] # 1.5 H (0.0-0.8) K/uL Eos # 0.0 (0.0-0.7) K/uL Baso # 0.3 H (0.0-0.2) K/uL Neutrophils % (Manual) 79 H (50-75) % Band Neutrophils % 13 H* (0-2) % Lymphocytes % (Manual) 2 L (20-40) % Monocytes % (Manual) 6 (0-10) % Toxic Granulation Present Platelet Estimate Normal (NORMAL) Polychromasia Slight Hypochromasia (manual) Slight Anisocytosis (manual) Slight Macrocytosis (manual) Moderate Target Cells Slight Sodium 138 (132-148) mmol/L Potassium 4.2 (3.6-5.2) mmol/L Chloride 89 L (98-107) mmol/L Carbon Dioxide 33 H (22-30) mmol/L Anion Gap 20 (10-20) BUN 12 (7-17) mg/dL Creatinine 0.6 L (0.7-1.2) MG/DL Est GFR ( Amer) > 60 Est GFR (Non-Af Amer) > 60 Random Glucose 54 L (65-105) mg/dL Calcium 8.4 L (8.6-10.4) mg/dl Phosphorus 2.9 (2.5-4.5) mg/dL Magnesium 1.8 (1.6-2.3) mg/dL Total Bilirubin 11.4 H (0.2-1.3) mg/dL AST 249 H (14-36) U/L ALT 73 H (9-52) U/L Alkaline Phosphatase 145 H (38-126) U/L Total Protein 7.0 (6.3-8.3) g/dL Albumin 3.6 (3.5-5.0) g/dL Globulin 3.4 (2.2-3.9) gm/dL Albumin/Globulin Ratio 1.0 (1.0-2.1) Laboratory Results - last 24 hr 10/16/16 10/16/16 06:36 06:41 WBC 54.9 H* RBC 2.38 L Hgb 7.8 L Hct 26.4 L MCV 110.8 H D MCH 32.9 H MCHC 29.7 L RDW 19.0 H Plt Count 336 MPV 9.9 Neut % (Auto) 93.3 H Lymph % (Auto) 3.4 L [place] % (Auto) 2.7 Eos % (Auto) 0.1 Baso % (Auto) 0.5 Neut # 51.3 H Lymph # 1.9 [place] # 1.5 H Eos # 0.0 Baso # 0.3 H Neutrophils % (Manual) 79 H Band Neutrophils % 13 H* Lymphocytes % (Manual) 2 L Monocytes % (Manual) 6 Toxic Granulation Present Platelet Estimate Normal Polychromasia Slight Hypochromasia (manual) Slight Anisocytosis (manual) Slight Macrocytosis (manual) Moderate Target Cells Slight Sodium 138 Potassium 4.2 Chloride 89 L Carbon Dioxide 33 H Anion Gap 20 BUN 12 Creatinine 0.6 L Est GFR ( Amer) > 60 Est GFR (Non-Af Amer) > 60 Random Glucose 54 L Calcium 8.4 L Phosphorus 2.9 Magnesium 1.8 Total Bilirubin 11.4 H AST 249 H ALT 73 H Alkaline Phosphatase 145 H Total Protein 7.0 Albumin 3.6 Globulin 3.4 Albumin/Globulin Ratio 1.0 Fingerstick Blood Sugar Results: 166 Review of Systems - Constitutional Constitutional: absent: Fever, Chills - EENT Eyes: absent: Change in Vision Ears: absent: Decreased Hearing Nose/Mouth/Throat: absent: Nasal Congestion - Cardiovascular Cardiovascular: Dyspnea (SOB with deep breath occasionally). absent: Chest Pain , Chest Pain at Rest, Dyspnea on Exertion - Respiratory Respiratory: Dyspnea (SOB with deep breath occasionally) - Gastrointestinal Gastrointestinal: Abdominal Pain (diffuse, worse in RQU/epigastric) - Genitourinary Genitourinary: Urinary Frequency (increased on aldactone). absent: Dysuria - Musculoskeletal Musculoskeletal: absent: Back Pain, Numbness, Tingling - Integumentary Integumentary: absent: Dry Skin, Rash - Neurological Neurological: absent: Weakness - Psychiatric Psychiatric: Anxiety ('sometimes;' improved with xanax). absent: Depression Critical Care Progress Note - Nutrition Nutrition: Nutrition Category Date Time Status Altered GI/Hepatic Diet [DIET] Diets 10/13/16 Lunch Active Assessment/Plan - Assessment and Plan (Free Text) Assessment: 31 F with PMHx of Anxiety, asthma, HTN, and alcoholic hepatitis with decompensated liver failure, presents following seizure. Persistent leukocytosis. Continued SOB, with CT showing large right pleural effusion and RLL consolidation. For thoracentesis by IR today. Chagned antibiotics to Primaxin, Avelox. Plan: Neuro: AAOx3 Neurochecks q6h Seizure D/O - Gabapentin 300mg PO BID Hepatic Encephalopathy on presentation - Ammonia 53 on presentation, on rifaximin - Continue Lactulose 30mg PO daily Cardio: Tachycardic (120's), Normotensive Hypokalemia, resolved - Kdur 20mg PO daily Pulm: 3L O2 Asthma - Pulmicort Respules 0.5mg Q12H substituted for home Advair CT A/P (10/15/16): RLL consolidation and pleural effusion. Mild left lung atelectasis. 6mm left lower lobe pulm nodule (should have repeat CT in 3-12 months based on malignancy risk). (see full report) CXR (10/16/16): moderate to large rt pleural effusion with consolidative changes in rt mid-lower lung zone. Venous congestion. Upper lobe granulomatous changes. Scattered nodularity in upper lung zones. Cardiomegaly. (see full report) - IR consult for thoracentesis - f/u CT Chest Sputum culture (10/14/16): Klebsiella pneumoniae - Start Maxipime 1gm Q12H IV - Start Avelox 400mg IV Daily GI: Bedside Ultrasound (10/13/16) - No ascitic fluid appreciated, therefore no paracentesis at this time Abdominal US (10/13/2016): f/u official read CT A/P (10/15/16): RLL consolidation and pleural effusion. Mild left lung atelectasis. 6mm left lower lobe pulm nodule (should have repeat CT in 3-12 months based on malignancy risk). Small hiatal hernia w GERD. Hepatosplenomegaly. Hepatic steatosis. GB contracted limiting evaluation, suspect wall thickening, questionable presence of debris/gallstones. Small abdominal/pelvic ascites. Soft tissue edema. (see full report) Hyperammonemia: 49 (10/15/16) -Spirinolactone 50mg Daily -Lactulose 30mg PO Daily -Rifaximin 550mg PO BID - Lasix 20mg IV daily Elevated LFTs: - AST/ALT/ALK phos: 249/75/145; elevated, worsening since admission Elevated Tbili: 13.5 on admission - 10/16: 11.4; remains elevated but slightly improved GI/hepatic diet /Renal: BUN/Cr WNL Monitor I/Os Heme: Coagulopathy (elevated INR) PT/INR/PTT: 16/1.10/28 ID: CODE SEPSIS (10/13/16) Criteria on admission: Leukocytosis 60.5, Tachycardic, Tachypnic - left shift, bandemia - Pt on home prednisone Prednisone 40mg PO Daily Rifaximin 550mg PO BID Cdiff (10/13/16): negative Blood cx (10/13/16): no growth for 3 days x 2 Urine cx (10/13/16): no growth Sputum Cx (10/14/16): Klebsiella Pneumoniae - Start Maxipime 1 gm IV Daily, Avelox 400mg IV Daily - Discontinue Zosyn MRSA screen (10/13/16): not detected Hx of Benzo/Alcohol Abuse - UDS negative MSKLTL: Bilateral leg swelling, bedridden for one week - Venous dopplers b/l (10/13/16): negative f/u PT/OT Prophylaxis: DVT: SCDs contraindicated due to swollen legs VTE: Heparin 5000 units q12h GI: Protonix IV daily <Virginia Carty - Last Filed: 10/16/16 16:58> CCU Objective - Vital Signs / Intake & Output Intake and Output (Last 8hrs): Intake & Output 10/16/16 10/16/16 10/16/16 06:59 14:59 22:59 Intake Total 400 450 Output Total 800 200 Balance -400 250 Weight 217 lb Intake: Intake, IV Amount 100 Right Forearm 100 Oral 300 450 Output: Urine 800 200 Urine, Voided 800 200 Other: # Bowel Movements 1 - Medications Active Medications: Active Medications Generic Name Dose Route Start Last Admin Trade Name Freq PRN Reason Stop Dose Admin Albuterol/Ipratropium 3 ml 10/14/16 14:00 10/16/16 14:09 Duoneb 3 Mg/0.5 Mg (3 Ml) Ud INH 3 ml RQ6 DAKSHA Administration Alprazolam 0.25 mg 10/15/16 09:38 10/15/16 21:53 Xanax PO 10/17/16 09:39 0.25 mg BID PRN Administration Anxiety Budesonide 0.5 mg 10/13/16 20:00 10/16/16 09:02 Pulmicort Respules INH 0.5 mg RQ12 DAKSHA Administration Furosemide 20 mg 10/15/16 10:00 10/16/16 09:46 Lasix IVP 20 mg DAILY DAKSHA Administration Gabapentin 300 mg 10/13/16 10:00 10/16/16 09:46 Neurontin PO 300 mg BID DAKSHA Administration Heparin Sodium (Porcine) 5,000 units 10/14/16 22:00 10/16/16 09:45 Heparin SC 5,000 units Q12H DAKSHA Administration Cefepime HCl 50 mls @ 100 mls/hr 10/16/16 10:45 10/16/16 12:19 Maxipime Iv 1 Gm Premix IVPB 100 mls/hr Q12H DAKSHA Administration Moxifloxacin HCl 250 mls @ 167 mls/hr 10/16/16 11:30 10/16/16 12:17 Avelox Iv 400mg/250ml Ns IVPB 167 mls/hr Q24H DAKSHA Administration Lactulose 30 gm 10/15/16 10:00 10/16/16 09:44 Enulose PO 30 gm DAILY DAKSHA Administration Morphine Sulfate 2 mg 10/16/16 10:45 10/16/16 12:24 Morphine IV 2 mg Q6 PRN Administration Pain, moderate (4-7) Potassium Chloride 20 meq 10/14/16 10:15 10/16/16 09:46 K-Dur 20 Meq Er Tab PO 20 meq DAILY DAKSHA Administration Prednisone 20 mg 10/15/16 09:38 10/16/16 09:45 Prednisone Tab PO 20 mg DAILY DAKSHA Administration Rifaximin 550 mg 10/13/16 10:45 10/16/16 09:44 Xifaxan PO 550 mg BID DAKSHA Administration Spironolactone 50 mg 10/13/16 13:27 10/16/16 09:46 Aldactone PO 50 mg DAILY DAKSHA Administration - Patient Studies Lab Studies: Microbiology Studies 10/14/16 10:11 Gram Stain - Final Sputum Sputum Culture - Final Klebsiella Pneumoniae Ssp Pneu Lab Studies 10/16/16 10/16/16 10/16/16 Range/Units 15:27 06:41 06:36 WBC 54.9 H* (4.8-10.8) K/uL RBC 2.38 L (3.80-5.20) Mil/uL Hgb 7.8 L (11.0-16.0) g/dL Hct 26.4 L (34.0-47.0) % MCV 110.8 H D (81.0-99.0) fL MCH 32.9 H (27.0-31.0) pg MCHC 29.7 L (33.0-37.0) g/dL RDW 19.0 H (11.5-14.5) % Plt Count 336 (130-400) K/uL MPV 9.9 (7.2-11.7) fL Neut % (Auto) 93.3 H (50.0-75.0) % Lymph % (Auto) 3.4 L (20.0-40.0) % [place] % (Auto) 2.7 (0.0-10.0) % Eos % (Auto) 0.1 (0.0-4.0) % Baso % (Auto) 0.5 (0.0-2.0) % Neut # 51.3 H (1.8-7.0) K/uL Lymph # 1.9 (1.0-4.3) K/uL [place] # 1.5 H (0.0-0.8) K/uL Eos # 0.0 (0.0-0.7) K/uL Baso # 0.3 H (0.0-0.2) K/uL Neutrophils % (Manual) 79 H (50-75) % Band Neutrophils % 13 H* (0-2) % Lymphocytes % (Manual) 2 L (20-40) % Monocytes % (Manual) 6 (0-10) % Toxic Granulation Present Platelet Estimate Normal (NORMAL) Polychromasia Slight Hypochromasia (manual) Slight Anisocytosis (manual) Slight Macrocytosis (manual) Moderate Target Cells Slight Sodium 138 (132-148) mmol/L Potassium 4.2 (3.6-5.2) mmol/L Chloride 89 L (98-107) mmol/L Carbon Dioxide 33 H (22-30) mmol/L Anion Gap 20 (10-20) BUN 12 (7-17) mg/dL Creatinine 0.6 L (0.7-1.2) MG/DL Est GFR ( Amer) > 60 Est GFR (Non-Af Amer) > 60 Random Glucose 54 L (65-105) mg/dL Calcium 8.4 L (8.6-10.4) mg/dl Phosphorus 2.9 (2.5-4.5) mg/dL Magnesium 1.8 (1.6-2.3) mg/dL Total Bilirubin 11.4 H (0.2-1.3) mg/dL AST 249 H (14-36) U/L ALT 73 H (9-52) U/L Alkaline Phosphatase 145 H (38-126) U/L Total Protein 7.0 (6.3-8.3) g/dL Albumin 3.6 (3.5-5.0) g/dL Globulin 3.4 (2.2-3.9) gm/dL Albumin/Globulin Ratio 1.0 (1.0-2.1) Fluid Source Pleural Laboratory Results - last 24 hr 10/16/16 10/16/16 10/16/16 06:36 06:41 15:27 WBC 54.9 H* RBC 2.38 L Hgb 7.8 L Hct 26.4 L MCV 110.8 H D MCH 32.9 H MCHC 29.7 L RDW 19.0 H Plt Count 336 MPV 9.9 Neut % (Auto) 93.3 H Lymph % (Auto) 3.4 L [place] % (Auto) 2.7 Eos % (Auto) 0.1 Baso % (Auto) 0.5 Neut # 51.3 H Lymph # 1.9 [place] # 1.5 H Eos # 0.0 Baso # 0.3 H Neutrophils % (Manual) 79 H Band Neutrophils % 13 H* Lymphocytes % (Manual) 2 L Monocytes % (Manual) 6 Toxic Granulation Present Platelet Estimate Normal Polychromasia Slight Hypochromasia (manual) Slight Anisocytosis (manual) Slight Macrocytosis (manual) Moderate Target Cells Slight Sodium 138 Potassium 4.2 Chloride 89 L Carbon Dioxide 33 H Anion Gap 20 BUN 12 Creatinine 0.6 L Est GFR ( Amer) > 60 Est GFR (Non-Af Amer) > 60 Random Glucose 54 L Calcium 8.4 L Phosphorus 2.9 Magnesium 1.8 Total Bilirubin 11.4 H AST 249 H ALT 73 H Alkaline Phosphatase 145 H Total Protein 7.0 Albumin 3.6 Globulin 3.4 Albumin/Globulin Ratio 1.0 Fluid Source Pleural Critical Care Progress Note - Nutrition Nutrition: Nutrition Category Date Time Status Altered GI/Hepatic Diet [DIET] Diets 10/13/16 Lunch Active Assessment/Plan (1) Hepatic encephalopathy Current Visit: Yes Status: Acute (2) Seizure Current Visit: Yes Status: Acute (3) Sepsis Current Visit: Yes Status: Acute (4) Alcohol dependence Current Visit: No Status: Acute Attending/Attestation - Attestation I have personally seen and examined this patient.: Yes I have fully participated in the care of the patient.: Yes I have reviewed all pertinent clinical information: Yes Notes (Text): 10/16/16 16:56 Patient is still having mild tachycardia. Minimal tachypnea noted. White count is still not improving. CAT scan of the chest are showing evidence of right lung effusion, Patient underwent a right-sided thoracentesis. 500 mL fluid removed. We'll continue to monitor the overall prognosis
[2016-10-16] MEDS: Moxifloxacin IV 400mg/250ml NS 250 ML IVPB SCH (12:17)
[2016-10-16] MEDS: Cefepime IV 1 gm in Dextrose 50 ML IVPB SCH (12:19)
[2016-10-16] MEDS: Morphine 4 MG/ML VIAL IV PRN ×2 (12:24→18:43)
--- NOTE | 2016-10-16 12:28 | CT ---
PROCEDURE: CT Chest without contrast HISTORY: rt sided pleural effusion COMPARISON: None. TECHNIQUE: Contiguous axial images were obtained through the chest without intravenous contrast enhancement. Sagittal and coronal reconstructions were performed. Radiation dose (DLP): 748.8 mGy-cm. This CT exam was performed using one or more of the following dose reduction techniques: Automated exposure control, adjustment of the mA and/or kV according to patient size, and/or use of iterative reconstruction technique. FINDINGS: LUNGS: There is complete collapse/consolidation of the right lung lower lobe. There is partial consolidation of the right middle lobe. Nonspecific 8 small ground-glass opacity seen in the lungs. Re- demonstration of mixed density 6.8 millimeter nodule at the left lung base. No evidence of nodule or mass in the visualized portion of the airway. MEDIASTINUM: Unremarkable thoracic aorta. No aneurysm. The heart these mildly to moderately enlarged. Main pulmonary artery is mildly to moderately enlarged. No lymphadenopathy. PLEURA: There is moderate size right pleural effusion. No evidence of left pleural effusion. BONES: No evidence of acute pathology. Multiple Schmorl nodes seen in the lower and mid thoracic spine. UPPER ABDOMEN: Hepato splenomegaly are again noted. Diffuse low-attenuation of the liver is also again noted. OTHER FINDINGS: None. IMPRESSION: Moderate to large right pleural effusion. Complete collapse/ consolidation of the right lung lower lobe and partial collapse/consolidation of the right middle lobe. Small scattered ground-glass opacities. 6.8 millimeter mixed density nodule at the left lower lobe. Cardiomegaly.
[2016-10-16 15:30] LABS: BODY FLUID TYPE PLEURAL
--- NOTE | 2016-10-16 15:44 | US ---
PROCEDURE: Date of procedure: 10/16/2016 Procedure: 1. Ultrasound-guided Right thoracentesis, CPT 72295 Medications: 4 cc 1% Lidocaine HISTORY: Right pleural effusion, shortness of breath TECHNIQUE: Following informed consent ,the Patients' right chest was marked. Procedure time-out was called, and the patient was placed in the sitting position and limited ultrasound showed a large right effusion. The patient's right back was prepped and draped in the usual sterile fashion. After the skin was anesthetized with lidocaine, a drainage catheter was advanced under ultrasound guidance into the pleural space. Ultrasound-guided thoracentesis was performed. A total of 5000 cubic centimeters of straw-colored fluid removed without complication. A Xeroform dressing was applied. IMPRESSION: Ultrasound guided Right thoracentesis. There were no immediate complications.
--- NOTE | 2016-10-16 16:41 | RAD ---
HISTORY: Follow-up thoracentesis. Relevant interventional procedure(s): October 16, 2016. Right thoracentesis with recovery of 5 L of fluid. COMPARISON: Preprocedural study 08:20. October 16, 2016. FINDINGS: LUNGS: Improved aeration of the right lung. PLEURA: Substantial decrease in right pleural effusion. No pneumothorax. CARDIOVASCULAR: Cardiomegaly. No evidence of acute, significant cardiovascular disease. OSSEOUS STRUCTURES: No significant abnormalities. VISUALIZED UPPER ABDOMEN: Normal. OTHER FINDINGS: None. IMPRESSION: No evidence of pneumothorax following recent thoracentesis. Residual right lower lobe consolidative changes/ compressive atelectasis.
[2016-10-16 21:39] LABS: BF GROSS APPEARANCE CLEAR (CLEAR)
[2016-10-16 21:46] LABS: BODY FLUID TOTAL COUNT 100 (0-0)
[2016-10-17] MEDS: Morphine 4 MG/ML VIAL IV PRN ×4 (00:26→20:00)
[2016-10-17] MEDS: Cefepime IV 1 gm in Dextrose 50 ML IVPB SCH ×3 (00:28→22:15)
[2016-10-17] MEDS: Albuterol-Ipratrop 3 mg / 0.5 (3 ml) UD INH SCH ×4 (01:09→20:14)
[2016-10-17 06:42] LABS: BASO # 0.6 K/uL (0.0-0.2); BASO % 1.1 % (0.0-2.0); EOS # 0.1 K/uL (0.0-0.7); EOS % 0.2 % (0.0-4.0); HEMATOCRIT 26.4 % (34.0-47.0); LYMPH # 1.8 K/uL (1.0-4.3); MEAN CELL VOLUME 111.6 fL (81.0-99.0); MEAN CORPUSCULAR HEMOGLOBIN 33.6 pg (27.0-31.0); MEAN CORPUSCULAR HGB CONC 30.1 g/dL (33.0-37.0); MEAN PLATELET VOLUME 10.1 fL (7.2-11.7); MONO # 1.1 K/uL (0.0-0.8); MONO % 1.9 % (0.0-10.0); NRBC % 0.1 % (0.0-2.0); PLATELET COUNT 311 K/uL (130-400)
[2016-10-17 06:50] LABS: CHLORIDE 91 mmol/L (98-107); POTASSIUM 4.5 mmol/L (3.6-5.2); SODIUM 137 mmol/L (132-148)
[2016-10-17 06:52] LABS: GFR AFRICAN-AMERICAN > 60
[2016-10-17 06:53] LABS: ALKALINE PHOSPHATASE 155 U/L (38-126); ALT/SGPT 73 U/L (9-52); AST/SGOT 214 U/L (14-36); BILIRUBIN,TOTAL 12.1 mg/dL (0.2-1.3); BLOOD UREA NITROGEN 14 mg/dL (7-17); CARBON DIOXIDE 31 mmol/L (22-30); GLUCOSE,RANDOM 68 mg/dL (65-105)
[2016-10-17 06:54] LABS: CALCIUM 8.7 mg/dl (8.6-10.4); MAGNESIUM 1.9 mg/dL (1.6-2.3)
[2016-10-17 06:57] LABS: WHITE BLOOD COUNT 58.3 K/uL (4.8-10.8)
[2016-10-17] MEDS: Budesonide 0.5 mg/2 ml Inhal Susp UD INH SCH ×2 (08:39→20:13)
[2016-10-17 08:42] LABS: NEUTROPHIL 77 % (50-75); NUCLEATED RED BLOOD CELL 1 % (0-0); TOTAL CELLS COUNTED 100
[2016-10-17 08:45] LABS: SPHEROCYTES SLIGHT
[2016-10-17] MEDS: Potassium Chloride 20 mEq ER Tab PO SCH (10:26)
--- NOTE | 2016-10-17 11:24 | CP.PCM.CON ---
History of Present Illness - History of Present Illness History of Present Illness: admitted for decompensated liver dz, SIRS with leukocytosis ( worse from steroids, functional asplenia ) may need paracentesis IV rx in progress Past Patient History - Infectious Disease Hx of Infectious Diseases: None - Past Medical History & Family History Past Medical History?: Yes - Past Social History Smoking Status: Never Smoked - CARDIAC Hx Hypertension: Yes - PULMONARY Hx Asthma: Yes - NEUROLOGICAL Hx Seizures: Yes - HEENT Hx HEENT Problems: No - RENAL Hx Chronic Kidney Disease: No - ENDOCRINE/METABOLIC Hx Endocrine Disorders: No - HEMATOLOGICAL/ONCOLOGICAL Hx Blood Disorders: No Hx Human Immunodeficiency Virus (HIV): No - INTEGUMENTARY Hx Eczema: Yes - MUSCULOSKELETAL/RHEUMATOLOGICAL Hx Falls: No - GASTROINTESTINAL Hx Gastrointestinal Disorders: No Hx Liver Failure: (liver problems) - GENITOURINARY/GYNECOLOGICAL Hx Genitourinary Disorders: No Hx Sexually Transmitted Disorders: No - PSYCHIATRIC Hx Anxiety: Yes Hx Substance Use: No - SURGICAL HISTORY Hx Surgeries: Yes Hx Section: Yes Hx Orthopedic Surgery: Yes - ANESTHESIA Hx Anesthesia: Yes Hx Anesthesia Reactions: No Hx Malignant Hyperthermia: No Meds Allergies/Adverse Reactions: Allergies Allergy/AdvReac Type Severity Reaction Status Date / Time No Known Allergies Allergy Verified 10/13/16 04:36 - Medications Medications: Current Medications Albuterol/Ipratropium (Duoneb 3 Mg/0.5 Mg (3 Ml) Ud) 3 ml INH RQ6 [facility] Last Admin: 10/17/16 08:39 Dose: 3 ml Budesonide (Pulmicort Respules) 0.5 mg INH RQ12 [facility] Last Admin: 10/17/16 08:39 Dose: 0.5 mg Furosemide (Lasix) 20 mg IVP DAILY [facility] Last Admin: 10/17/16 09:20 Dose: 20 mg Gabapentin (Neurontin) 300 mg PO BID [facility] Last Admin: 10/17/16 09:20 Dose: 300 mg Heparin Sodium (Porcine) (Heparin) 5,000 units SC Q12H [facility] Last Admin: 10/17/16 09:23 Dose: 5,000 units Cefepime HCl (Maxipime Iv 1 Gm Premix) 50 mls @ 100 mls/hr IVPB Q12H [facility] Last Admin: 10/17/16 10:28 Dose: 100 mls/hr Moxifloxacin HCl (Avelox Iv 400mg/250ml Ns) 250 mls @ 167 mls/hr IVPB Q24H [facility] Last Admin: 10/16/16 12:17 Dose: 167 mls/hr Lactulose (Enulose) 30 gm PO DAILY [facility] Last Admin: 10/17/16 09:20 Dose: 30 gm Morphine Sulfate (Morphine) 2 mg IV Q6 PRN PRN Reason: Pain, moderate (4-7) Last Admin: 10/17/16 07:08 Dose: 2 mg Potassium Chloride (K-Dur 20 Meq Er Tab) 20 meq PO DAILY [facility] Last Admin: 10/17/16 10:26 Dose: Not Given Prednisone (Prednisone Tab) 20 mg PO DAILY [facility] Last Admin: 10/17/16 09:19 Dose: 20 mg Rifaximin (Xifaxan) 550 mg PO BID [facility] Last Admin: 10/17/16 09:19 Dose: 550 mg Spironolactone (Aldactone) 50 mg PO DAILY [facility] Last Admin: 10/17/16 09:20 Dose: 50 mg Results - Vital Signs Recent Vital Signs: Last Vital Signs Temp 98.1 F 10/17/16 08:00 Pulse 129 H 10/17/16 10:22 Resp 30 H 10/17/16 10:22 BP 145/77 10/17/16 10:22 Pulse Ox 97 10/17/16 08:00 - Labs Result Diagrams: 10/17/16 06:35 10/17/16 04:00 Labs: Laboratory Results - last 24 hr 10/16/16 10/16/16 10/17/16 15:27 18:30 04:00 WBC RBC Hgb Hct MCV MCH MCHC RDW Plt Count MPV Neut % (Auto) Lymph % (Auto) [place] % (Auto) Eos % (Auto) Baso % (Auto) Neut # Lymph # [place] # Eos # Baso # Neutrophils % (Manual) Band Neutrophils % Lymphocytes % (Manual) Monocytes % (Manual) Nucleated RBC % Platelet Estimate Polychromasia Hypochromasia (manual) Anisocytosis (manual) Macrocytosis (manual) Spherocytes Target Cells Sodium 137 Potassium 4.5 Chloride 91 L Carbon Dioxide 31 H Anion Gap 20 BUN 14 Creatinine 0.6 L Est GFR ( Amer) > 60 Est GFR (Non-Af Amer) > 60 POC Glucose (mg/dL) 99 Random Glucose 68 Calcium 8.7 Phosphorus 3.0 Magnesium 1.9 Total Bilirubin 12.1 H AST 214 H ALT 73 H Alkaline Phosphatase 155 H Total Protein 7.0 Albumin 3.6 Globulin 3.5 Albumin/Globulin Ratio 1.0 Fluid Source Pleural Fluid Appearance Clear Fluid WBC 18.0 Fluid RBC 185.0 H Fluid Tot Cell Count 100 H Fluid Neutrophils 16.0 H Fluid Lymphocytes 64.0 H Fld Monocyte/Macrophag 20 H Fluid Comment 10/17/16 06:35 WBC 58.3 H* RBC 2.37 L Hgb 7.9 L Hct 26.4 L MCV 111.6 H MCH 33.6 H MCHC 30.1 L RDW 19.0 H Plt Count 311 MPV 10.1 Neut % (Auto) 93.8 H Lymph % (Auto) 3.0 L [place] % (Auto) 1.9 Eos % (Auto) 0.2 Baso % (Auto) 1.1 Neut # 54.6 H Lymph # 1.8 [place] # 1.1 H Eos # 0.1 Baso # 0.6 H Neutrophils % (Manual) 77 H Band Neutrophils % 16 H* Lymphocytes % (Manual) 4 L Monocytes % (Manual) 3 Nucleated RBC % 1 H Platelet Estimate Normal Polychromasia Slight Hypochromasia (manual) Slight Anisocytosis (manual) Slight Macrocytosis (manual) Moderate Spherocytes Slight Target Cells Slight Sodium Potassium Chloride Carbon Dioxide Anion Gap BUN Creatinine Est GFR ( Amer) Est GFR (Non-Af Amer) POC Glucose (mg/dL) Random Glucose Calcium Phosphorus Magnesium Total Bilirubin AST ALT Alkaline Phosphatase Total Protein Albumin Globulin Albumin/Globulin Ratio Fluid Source Fluid Appearance Fluid WBC Fluid RBC Fluid Tot Cell Count Fluid Neutrophils Fluid Lymphocytes Fld Monocyte/Macrophag Fluid Comment
[2016-10-17] MEDS: Moxifloxacin IV 400mg/250ml NS 250 ML IVPB SCH (12:15)
--- NOTE | 2016-10-17 16:18 | CP.CCUPN ---
<Kwasi De - Last Filed: 10/17/16 16:39> CCU Subjective - Physician Review Subjective (Free Text): 10/17/16 16:24 Pt seen and examined at bedside. Pt reports improvement in shortness of breath since thoracentesis yesterday. The abdominal pain is slightly improved today, and has been tolerating diet. She denies any episodes of nausea or vomiting overnight. Pts has remained afebrile, but tachycardic, with persistent leukocytosis despite alteration in antibiotics yesterday. Dr. Velazquez, ID, was consulted. Critical Care Time Spent (in minutes): 35 CCU Objective - Vital Signs / Intake & Output Vital Signs (Last 4 hours): Vital Signs Pulse Resp BP 10/17/16 14:00 128 H 21 10/17/16 13:48 129 H 24 10/17/16 13:23 131 H 29 H 135/71 10/17/16 13:00 131 H 27 H Intake and Output (Last 8hrs): Intake & Output 10/17/16 10/17/16 10/17/16 06:59 14:59 22:59 Intake Total 450 800 Output Total 400 100 Balance 50 700 Weight 217 lb Intake: Intake, IV Amount 50 300 Right Forearm 50 Left Forearm 300 Oral 400 500 Output: Urine 400 100 Urine, Voided 400 100 Other: # Voids Urine, Voided 0 # Bowel Movements 1 0 - Physical Exam Head: Positive for: Atraumatic, Normocephalic Pupils: Positive for: PERRL Extroacular Muscles: Positive for: EOMI Conjunctiva: Positive for: Icteric Mouth: Positive for: Moist Mucous Membranes Respiratory/Chest: Positive for: Good Air Exchange Cardiovascular: Positive for: Regular Rate and Rhythm Abdomen: Positive for: Tenderness (diffuse, worse in RUQ/epigastric area), Distention, Normal Bowel Sounds Back: Negative for: CVA Tenderness Upper Extremity: Positive for: Normal Inspection Lower Extremity: Positive for: Edema (1+ edema), CALF TENDERNESS Neurological: Positive for: GCS=15, CN II-XII Intact Skin: Positive for: Warm, Dry Psychiatric: Positive for: Alert, Oriented x 3 - Medications Active Medications: Active Medications Generic Name Dose Route Start Last Admin Trade Name Freq PRN Reason Stop Dose Admin Albuterol/Ipratropium 3 ml 10/14/16 14:00 10/17/16 13:51 Duoneb 3 Mg/0.5 Mg (3 Ml) Ud INH 3 ml RQ6 DAKSHA Administration Budesonide 0.5 mg 10/13/16 20:00 10/17/16 08:39 Pulmicort Respules INH 0.5 mg RQ12 DAKSHA Administration Furosemide 20 mg 10/15/16 10:00 10/17/16 09:20 Lasix IVP 20 mg DAILY DAKSHA Administration Gabapentin 300 mg 10/13/16 10:00 10/17/16 09:20 Neurontin PO 300 mg BID DAKSHA Administration Heparin Sodium (Porcine) 5,000 units 10/14/16 22:00 10/17/16 09:23 Heparin SC 5,000 units Q12H DAKSHA Administration Cefepime HCl 50 mls @ 100 mls/hr 10/16/16 10:45 10/17/16 10:28 Maxipime Iv 1 Gm Premix IVPB 100 mls/hr Q12H DAKSHA Administration Moxifloxacin HCl 250 mls @ 167 mls/hr 10/16/16 11:30 10/17/16 12:15 Avelox Iv 400mg/250ml Ns IVPB 167 mls/hr Q24H DAKSHA Administration Lactulose 30 gm 10/15/16 10:00 10/17/16 09:20 Enulose PO 30 gm DAILY DAKSHA Administration Morphine Sulfate 2 mg 10/16/16 10:45 10/17/16 13:15 Morphine IV 2 mg Q6 PRN Administration Pain, moderate (4-7) Potassium Chloride 20 meq 10/14/16 10:15 10/17/16 10:26 K-Dur 20 Meq Er Tab PO Not Given DAILY [facility] Prednisone 20 mg 10/15/16 09:38 10/17/16 09:19 Prednisone Tab PO 20 mg DAILY DAKSHA Administration Rifaximin 550 mg 10/13/16 10:45 10/17/16 09:19 Xifaxan PO 550 mg BID DAKSHA Administration Spironolactone 50 mg 10/13/16 13:27 10/17/16 09:20 Aldactone PO 50 mg DAILY DAKSHA Administration - Patient Studies Lab Studies: Lab Studies 10/17/16 10/17/16 10/16/16 Range/Units 06:35 04:00 18:30 WBC 58.3 H* (4.8-10.8) K/uL RBC 2.37 L (3.80-5.20) Mil/uL Hgb 7.9 L (11.0-16.0) g/dL Hct 26.4 L (34.0-47.0) % MCV 111.6 H (81.0-99.0) fL MCH 33.6 H (27.0-31.0) pg MCHC 30.1 L (33.0-37.0) g/dL RDW 19.0 H (11.5-14.5) % Plt Count 311 (130-400) K/uL MPV 10.1 (7.2-11.7) fL Neut % (Auto) 93.8 H (50.0-75.0) % Lymph % (Auto) 3.0 L (20.0-40.0) % [place] % (Auto) 1.9 (0.0-10.0) % Eos % (Auto) 0.2 (0.0-4.0) % Baso % (Auto) 1.1 (0.0-2.0) % Neut # 54.6 H (1.8-7.0) K/uL Lymph # 1.8 (1.0-4.3) K/uL [place] # 1.1 H (0.0-0.8) K/uL Eos # 0.1 (0.0-0.7) K/uL Baso # 0.6 H (0.0-0.2) K/uL Neutrophils % (Manual) 77 H (50-75) % Band Neutrophils % 16 H* (0-2) % Lymphocytes % (Manual) 4 L (20-40) % Monocytes % (Manual) 3 (0-10) % Nucleated RBC % 1 H (0-0) % Platelet Estimate Normal (NORMAL) Polychromasia Slight Hypochromasia (manual) Slight Anisocytosis (manual) Slight Macrocytosis (manual) Moderate Spherocytes Slight Target Cells Slight Sodium 137 (132-148) mmol/L Potassium 4.5 (3.6-5.2) mmol/L Chloride 91 L (98-107) mmol/L Carbon Dioxide 31 H (22-30) mmol/L Anion Gap 20 (10-20) BUN 14 (7-17) mg/dL Creatinine 0.6 L (0.7-1.2) MG/DL Est GFR ( Amer) > 60 Est GFR (Non-Af Amer) > 60 POC Glucose (mg/dL) 99 (65-110) mg/dL Random Glucose 68 (65-105) mg/dL Calcium 8.7 (8.6-10.4) mg/dl Phosphorus 3.0 (2.5-4.5) mg/dL Magnesium 1.9 (1.6-2.3) mg/dL Total Bilirubin 12.1 H (0.2-1.3) mg/dL AST 214 H (14-36) U/L ALT 73 H (9-52) U/L Alkaline Phosphatase 155 H (38-126) U/L Total Protein 7.0 (6.3-8.3) g/dL Albumin 3.6 (3.5-5.0) g/dL Globulin 3.5 (2.2-3.9) gm/dL Albumin/Globulin Ratio 1.0 (1.0-2.1) Fluid Appearance (CLEAR) Fluid WBC (0.0-300.0) /mm3 Fluid RBC (0.0-0.0) /mm3 Fluid Tot Cell Count (0-0) Fluid Neutrophils (0-0) % Fluid Lymphocytes (0-0) % Fld Monocyte/Macrophag (0-0) % Fluid Comment 10/16/16 Range/Units 15:27 WBC (4.8-10.8) K/uL RBC (3.80-5.20) Mil/uL Hgb (11.0-16.0) g/dL Hct (34.0-47.0) % MCV (81.0-99.0) fL MCH (27.0-31.0) pg MCHC (33.0-37.0) g/dL RDW (11.5-14.5) % Plt Count (130-400) K/uL MPV (7.2-11.7) fL Neut % (Auto) (50.0-75.0) % Lymph % (Auto) (20.0-40.0) % [place] % (Auto) (0.0-10.0) % Eos % (Auto) (0.0-4.0) % Baso % (Auto) (0.0-2.0) % Neut # (1.8-7.0) K/uL Lymph # (1.0-4.3) K/uL [place] # (0.0-0.8) K/uL Eos # (0.0-0.7) K/uL Baso # (0.0-0.2) K/uL Neutrophils % (Manual) (50-75) % Band Neutrophils % (0-2) % Lymphocytes % (Manual) (20-40) % Monocytes % (Manual) (0-10) % Nucleated RBC % (0-0) % Platelet Estimate (NORMAL) Polychromasia Hypochromasia (manual) Anisocytosis (manual) Macrocytosis (manual) Spherocytes Target Cells Sodium (132-148) mmol/L Potassium (3.6-5.2) mmol/L Chloride (98-107) mmol/L Carbon Dioxide (22-30) mmol/L Anion Gap (10-20) BUN (7-17) mg/dL Creatinine (0.7-1.2) MG/DL Est GFR ( Amer) Est GFR (Non-Af Amer) POC Glucose (mg/dL) (65-110) mg/dL Random Glucose (65-105) mg/dL Calcium (8.6-10.4) mg/dl Phosphorus (2.5-4.5) mg/dL Magnesium (1.6-2.3) mg/dL Total Bilirubin (0.2-1.3) mg/dL AST (14-36) U/L ALT (9-52) U/L Alkaline Phosphatase (38-126) U/L Total Protein (6.3-8.3) g/dL Albumin (3.5-5.0) g/dL Globulin (2.2-3.9) gm/dL Albumin/Globulin Ratio (1.0-2.1) Fluid Appearance Clear (CLEAR) Fluid WBC 18.0 (0.0-300.0) /mm3 Fluid RBC 185.0 H (0.0-0.0) /mm3 Fluid Tot Cell Count 100 H (0-0) Fluid Neutrophils 16.0 H (0-0) % Fluid Lymphocytes 64.0 H (0-0) % Fld Monocyte/Macrophag 20 H (0-0) % Fluid Comment Laboratory Results - last 24 hr 10/16/16 10/16/16 10/17/16 15:27 18:30 04:00 WBC RBC Hgb Hct MCV MCH MCHC RDW Plt Count MPV Neut % (Auto) Lymph % (Auto) [place] % (Auto) Eos % (Auto) Baso % (Auto) Neut # Lymph # [place] # Eos # Baso # Neutrophils % (Manual) Band Neutrophils % Lymphocytes % (Manual) Monocytes % (Manual) Nucleated RBC % Platelet Estimate Polychromasia Hypochromasia (manual) Anisocytosis (manual) Macrocytosis (manual) Spherocytes Target Cells Sodium 137 Potassium 4.5 Chloride 91 L Carbon Dioxide 31 H Anion Gap 20 BUN 14 Creatinine 0.6 L Est GFR ( Amer) > 60 Est GFR (Non-Af Amer) > 60 POC Glucose (mg/dL) 99 Random Glucose 68 Calcium 8.7 Phosphorus 3.0 Magnesium 1.9 Total Bilirubin 12.1 H AST 214 H ALT 73 H Alkaline Phosphatase 155 H Total Protein 7.0 Albumin 3.6 Globulin 3.5 Albumin/Globulin Ratio 1.0 Fluid Appearance Clear Fluid WBC 18.0 Fluid RBC 185.0 H Fluid Tot Cell Count 100 H Fluid Neutrophils 16.0 H Fluid Lymphocytes 64.0 H Fld Monocyte/Macrophag 20 H Fluid Comment 10/17/16 06:35 WBC 58.3 H* RBC 2.37 L Hgb 7.9 L Hct 26.4 L MCV 111.6 H MCH 33.6 H MCHC 30.1 L RDW 19.0 H Plt Count 311 MPV 10.1 Neut % (Auto) 93.8 H Lymph % (Auto) 3.0 L [place] % (Auto) 1.9 Eos % (Auto) 0.2 Baso % (Auto) 1.1 Neut # 54.6 H Lymph # 1.8 [place] # 1.1 H Eos # 0.1 Baso # 0.6 H Neutrophils % (Manual) 77 H Band Neutrophils % 16 H* Lymphocytes % (Manual) 4 L Monocytes % (Manual) 3 Nucleated RBC % 1 H Platelet Estimate Normal Polychromasia Slight Hypochromasia (manual) Slight Anisocytosis (manual) Slight Macrocytosis (manual) Moderate Spherocytes Slight Target Cells Slight Sodium Potassium Chloride Carbon Dioxide Anion Gap BUN Creatinine Est GFR ( Amer) Est GFR (Non-Af Amer) POC Glucose (mg/dL) Random Glucose Calcium Phosphorus Magnesium Total Bilirubin AST ALT Alkaline Phosphatase Total Protein Albumin Globulin Albumin/Globulin Ratio Fluid Appearance Fluid WBC Fluid RBC Fluid Tot Cell Count Fluid Neutrophils Fluid Lymphocytes Fld Monocyte/Macrophag Fluid Comment Fingerstick Blood Sugar Results: 166 Critical Care Progress Note - Nutrition Nutrition: Nutrition Category Date Time Status Altered GI/Hepatic Diet [DIET] Diets 10/13/16 Lunch Active Assessment/Plan - Assessment and Plan (Free Text) Assessment: 31 F with PMHx of Anxiety, asthma, HTN, and alcoholic hepatitis with decompensated liver failure, presents following seizure. Persistent leukocytosis. Continued SOB, with CT showing large right pleural effusion and RLL consolidation. For thoracentesis by IR today. Chagned antibiotics to Primaxin, Avelox. Plan: Neuro: AAOx3 Neurochecks q6h Seizure D/O - Gabapentin 300mg PO BID Hepatic Encephalopathy on presentation - Ammonia 53 on presentation - - Continue Lactulose 30mg PO daily Cardio: Tachycardic (120's), Normotensive Hypokalemia, resolved - Kdur 20mg PO daily Pulm: 3L O2 Asthma - Pulmicort Respules 0.5mg Q12H substituted for home Advair CT A/P (10/15/16): RLL consolidation and pleural effusion. Mild left lung atelectasis. 6mm left lower lobe pulm nodule (should have repeat CT in 3-12 months based on malignancy risk). (see full report) CXR (10/16/16): moderate to large rt pleural effusion with consolidative changes in rt mid-lower lung zone. Venous congestion. Upper lobe granulomatous changes. Scattered nodularity in upper lung zones. Cardiomegaly. (see full report) CT Chest (10/16/16): Moderate to large right pleural effusion. Complete consolidation of right lower lobe and partial collapse/consolidation of of right middle lobe. Ground glass opacities. Cardiomegaly. (see full report) IR thoracentesis (10/17/16) - 500cc removed - f/u cytology studies Sputum culture (10/14/16): Klebsiella pneumoniae - Continued Maxipime 1gm Q12H IV (day two) - Continued Avelox 400mg IV Daily (day two) GI: Bedside Ultrasound (10/13/16) - No ascitic fluid appreciated, therefore no paracentesis at this time CT A/P (10/15/16): RLL consolidation and pleural effusion. Mild left lung atelectasis. 6mm left lower lobe pulm nodule (should have repeat CT in 3-12 months based on malignancy risk). Small hiatal hernia w GERD. Hepatosplenomegaly. Hepatic steatosis. GB contracted limiting evaluation, suspect wall thickening, questionable presence of debris/gallstones. Small abdominal/pelvic ascites. Soft tissue edema. (see full report) Hyperammonemia: 49 (10/15/16) - Spirinolactone 50mg Daily - Lactulose 30mg PO Daily - Rifaximin 550mg PO BID - Lasix 20mg IV daily Elevated LFTs: - AST/ALT/ALK phos: 214/73/155; elevated, worsening since admission Elevated Tbili: 13.5 on admission - 10/17: 12.1; remains elevated uptrending today GI/hepatic diet Dr. Silver, GI consult: help appreciated - f/u reccs /Renal: BUN/Cr WNL Monitor I/Os Heme: Coagulopathy (elevated INR) PT/INR/PTT (10/15/16): 16/.10/28 ID: CODE SEPSIS (10/13/16) Criteria on admission: Leukocytosis 60.5, Tachycardic, Tachypnic - WBC 58.3 today, left shift w. [address] Velazquez, ID consult: help appreciated - f/u reccs Prednisone 20mg PO Daily Rifaximin 550mg PO BID Cdiff (10/13/16): negative Blood cx (10/13/16): no growth for 3 days x 2 Urine cx (10/13/16): no growth Sputum Cx (10/14/16): Klebsiella Pneumoniae - Continue Maxipime 1 gm IV Daily (Day two) - Continue Avelox 400mg IV Daily (Day two) MRSA screen (10/13/16): not detected Hx of Benzo/Alcohol Abuse - UDS negative MSKLTL: Bilateral leg swelling, bedridden for one week - Venous dopplers b/l (10/13/16): negative PT/OT eval Prophylaxis: DVT: SCDs contraindicated due to swollen legs VTE: Heparin 5000 units q12h GI: Protonix IV daily <Jero Friend - Last Filed: 10/17/16 17:31> CCU Objective - Vital Signs / Intake & Output Vital Signs (Last 4 hours): Vital Signs Temp Pulse Resp BP Pulse Ox 10/17/16 16:59 120 H 26 H 10/17/16 16:55 123 H 28 H 137/71 10/17/16 16:00 98.4 F 124 H 24 98 10/17/16 15:00 128 H 24 10/17/16 14:50 127 H 21 140/70 10/17/16 14:43 127 H 23 139/69 10/17/16 14:38 127 H 24 10/17/16 14:00 128 H 21 10/17/16 13:48 129 H 24 Intake and Output (Last 8hrs): Intake & Output 10/17/16 10/17/16 10/17/16 06:59 14:59 22:59 Intake Total 450 800 200 Output Total 400 100 Balance 50 700 200 Weight 217 lb Intake: Intake, IV Amount 50 300 Right Forearm 50 Left Forearm 300 Oral 400 500 200 Output: Urine 400 100 Urine, Voided 400 100 Other: # Voids Urine, Voided 0 0 # Bowel Movements 1 0 0 - Medications Active Medications: Active Medications Generic Name Dose Route Start Last Admin Trade Name Freq PRN Reason Stop Dose Admin Albuterol/Ipratropium 3 ml 10/14/16 14:00 10/17/16 13:51 Duoneb 3 Mg/0.5 Mg (3 Ml) Ud INH 3 ml RQ6 DAKSHA Administration Budesonide 0.5 mg 10/13/16 20:00 10/17/16 08:39 Pulmicort Respules INH 0.5 mg RQ12 DAKSHA Administration Furosemide 20 mg 10/15/16 10:00 10/17/16 09:20 Lasix IVP 20 mg DAILY DAKSHA Administration Gabapentin 300 mg 10/13/16 10:00 10/17/16 09:20 Neurontin PO 300 mg BID DAKSHA Administration Heparin Sodium (Porcine) 5,000 units 10/14/16 22:00 10/17/16 09:23 Heparin SC 5,000 units Q12H DAKSHA Administration Cefepime HCl 50 mls @ 100 mls/hr 10/16/16 10:45 10/17/16 10:28 Maxipime Iv 1 Gm Premix IVPB 100 mls/hr Q12H DAKSHA Administration Moxifloxacin HCl 250 mls @ 167 mls/hr 10/16/16 11:30 10/17/16 12:15 Avelox Iv 400mg/250ml Ns IVPB 167 mls/hr Q24H DAKSHA Administration Lactulose 30 gm 10/15/16 10:00 10/17/16 09:20 Enulose PO 30 gm DAILY DAKSHA Administration Morphine Sulfate 2 mg 10/16/16 10:45 10/17/16 13:15 Morphine IV 2 mg Q6 PRN Administration Pain, moderate (4-7) Potassium Chloride 20 meq 10/14/16 10:15 10/17/16 10:26 K-Dur 20 Meq Er Tab PO Not Given DAILY DAKSHA Prednisone 20 mg 10/15/16 09:38 10/17/16 09:19 Prednisone Tab PO 20 mg DAILY DAKSHA Administration Rifaximin 550 mg 10/13/16 10:45 10/17/16 09:19 Xifaxan PO 550 mg BID DAKSHA Administration Spironolactone 50 mg 10/13/16 13:27 10/17/16 09:20 Aldactone PO 50 mg DAILY DAKSHA Administration - Patient Studies Lab Studies: Lab Studies 10/17/16 10/17/16 10/16/16 Range/Units 06:35 04:00 18:30 WBC 58.3 H* (4.8-10.8) K/uL RBC 2.37 L (3.80-5.20) Mil/uL Hgb 7.9 L (11.0-16.0) g/dL Hct 26.4 L (34.0-47.0) % MCV 111.6 H (81.0-99.0) fL MCH 33.6 H (27.0-31.0) pg MCHC 30.1 L (33.0-37.0) g/dL RDW 19.0 H (11.5-14.5) % Plt Count 311 (130-400) K/uL MPV 10.1 (7.2-11.7) fL Neut % (Auto) 93.8 H (50.0-75.0) % Lymph % (Auto) 3.0 L (20.0-40.0) % [place] % (Auto) 1.9 (0.0-10.0) % Eos % (Auto) 0.2 (0.0-4.0) % Baso % (Auto) 1.1 (0.0-2.0) % Neut # 54.6 H (1.8-7.0) K/uL Lymph # 1.8 (1.0-4.3) K/uL [place] # 1.1 H (0.0-0.8) K/uL Eos # 0.1 (0.0-0.7) K/uL Baso # 0.6 H (0.0-0.2) K/uL Neutrophils % (Manual) 77 H (50-75) % Band Neutrophils % 16 H* (0-2) % Lymphocytes % (Manual) 4 L (20-40) % Monocytes % (Manual) 3 (0-10) % Nucleated RBC % 1 H (0-0) % Platelet Estimate Normal (NORMAL) Polychromasia Slight Hypochromasia (manual) Slight Anisocytosis (manual) Slight Macrocytosis (manual) Moderate Spherocytes Slight Target Cells Slight Sodium 137 (132-148) mmol/L Potassium 4.5 (3.6-5.2) mmol/L Chloride 91 L (98-107) mmol/L Carbon Dioxide 31 H (22-30) mmol/L Anion Gap 20 (10-20) BUN 14 (7-17) mg/dL Creatinine 0.6 L (0.7-1.2) MG/DL Est GFR ( Amer) > 60 Est GFR (Non-Af Amer) > 60 POC Glucose (mg/dL) 99 (65-110) mg/dL Random Glucose 68 (65-105) mg/dL Calcium 8.7 (8.6-10.4) mg/dl Phosphorus 3.0 (2.5-4.5) mg/dL Magnesium 1.9 (1.6-2.3) mg/dL Total Bilirubin 12.1 H (0.2-1.3) mg/dL AST 214 H (14-36) U/L ALT 73 H (9-52) U/L Alkaline Phosphatase 155 H (38-126) U/L Total Protein 7.0 (6.3-8.3) g/dL Albumin 3.6 (3.5-5.0) g/dL Globulin 3.5 (2.2-3.9) gm/dL Albumin/Globulin Ratio 1.0 (1.0-2.1) Fluid Appearance (CLEAR) Fluid WBC (0.0-300.0) /mm3 Fluid RBC (0.0-0.0) /mm3 Fluid Tot Cell Count (0-0) Fluid Neutrophils (0-0) % Fluid Lymphocytes (0-0) % Fld Monocyte/Macrophag (0-0) % Fluid Comment 10/16/16 Range/Units 15:27 WBC (4.8-10.8) K/uL RBC (3.80-5.20) Mil/uL Hgb (11.0-16.0) g/dL Hct (34.0-47.0) % MCV (81.0-99.0) fL MCH (27.0-31.0) pg MCHC (33.0-37.0) g/dL RDW (11.5-14.5) % Plt Count (130-400) K/uL MPV (7.2-11.7) fL Neut % (Auto) (50.0-75.0) % Lymph % (Auto) (20.0-40.0) % [place] % (Auto) (0.0-10.0) % Eos % (Auto) (0.0-4.0) % Baso % (Auto) (0.0-2.0) % Neut # (1.8-7.0) K/uL Lymph # (1.0-4.3) K/uL [place] # (0.0-0.8) K/uL Eos # (0.0-0.7) K/uL Baso # (0.0-0.2) K/uL Neutrophils % (Manual) (50-75) % Band Neutrophils % (0-2) % Lymphocytes % (Manual) (20-40) % Monocytes % (Manual) (0-10) % Nucleated RBC % (0-0) % Platelet Estimate (NORMAL) Polychromasia Hypochromasia (manual) Anisocytosis (manual) Macrocytosis (manual) Spherocytes Target Cells Sodium (132-148) mmol/L Potassium (3.6-5.2) mmol/L Chloride (98-107) mmol/L Carbon Dioxide (22-30) mmol/L Anion Gap (10-20) BUN (7-17) mg/dL Creatinine (0.7-1.2) MG/DL Est GFR ( Amer) Est GFR (Non-Af Amer) POC Glucose (mg/dL) (65-110) mg/dL Random Glucose (65-105) mg/dL Calcium (8.6-10.4) mg/dl Phosphorus (2.5-4.5) mg/dL Magnesium (1.6-2.3) mg/dL Total Bilirubin (0.2-1.3) mg/dL AST (14-36) U/L ALT (9-52) U/L Alkaline Phosphatase (38-126) U/L Total Protein (6.3-8.3) g/dL Albumin (3.5-5.0) g/dL Globulin (2.2-3.9) gm/dL Albumin/Globulin Ratio (1.0-2.1) Fluid Appearance Clear (CLEAR) Fluid WBC 18.0 (0.0-300.0) /mm3 Fluid RBC 185.0 H (0.0-0.0) /mm3 Fluid Tot Cell Count 100 H (0-0) Fluid Neutrophils 16.0 H (0-0) % Fluid Lymphocytes 64.0 H (0-0) % Fld Monocyte/Macrophag 20 H (0-0) % Fluid Comment Laboratory Results - last 24 hr 10/16/16 10/16/16 10/17/16 15:27 18:30 04:00 WBC RBC Hgb Hct MCV MCH MCHC RDW Plt Count MPV Neut % (Auto) Lymph % (Auto) [place] % (Auto) Eos % (Auto) Baso % (Auto) Neut # Lymph # [place] # Eos # Baso # Neutrophils % (Manual) Band Neutrophils % Lymphocytes % (Manual) Monocytes % (Manual) Nucleated RBC % Platelet Estimate Polychromasia Hypochromasia (manual) Anisocytosis (manual) Macrocytosis (manual) Spherocytes Target Cells Sodium 137 Potassium 4.5 Chloride 91 L Carbon Dioxide 31 H Anion Gap 20 BUN 14 Creatinine 0.6 L Est GFR ( Amer) > 60 Est GFR (Non-Af Amer) > 60 POC Glucose (mg/dL) 99 Random Glucose 68 Calcium 8.7 Phosphorus 3.0 Magnesium 1.9 Total Bilirubin 12.1 H AST 214 H ALT 73 H Alkaline Phosphatase 155 H Total Protein 7.0 Albumin 3.6 Globulin 3.5 Albumin/Globulin Ratio 1.0 Fluid Appearance Clear Fluid WBC 18.0 Fluid RBC 185.0 H Fluid Tot Cell Count 100 H Fluid Neutrophils 16.0 H Fluid Lymphocytes 64.0 H Fld Monocyte/Macrophag 20 H Fluid Comment 10/17/16 06:35 WBC 58.3 H* RBC 2.37 L Hgb 7.9 L Hct 26.4 L MCV 111.6 H MCH 33.6 H MCHC 30.1 L RDW 19.0 H Plt Count 311 MPV 10.1 Neut % (Auto) 93.8 H Lymph % (Auto) 3.0 L [place] % (Auto) 1.9 Eos % (Auto) 0.2 Baso % (Auto) 1.1 Neut # 54.6 H Lymph # 1.8 [place] # 1.1 H Eos # 0.1 Baso # 0.6 H Neutrophils % (Manual) 77 H Band Neutrophils % 16 H* Lymphocytes % (Manual) 4 L Monocytes % (Manual) 3 Nucleated RBC % 1 H Platelet Estimate Normal Polychromasia Slight Hypochromasia (manual) Slight Anisocytosis (manual) Slight Macrocytosis (manual) Moderate Spherocytes Slight Target Cells Slight Sodium Potassium Chloride Carbon Dioxide Anion Gap BUN Creatinine Est GFR ( Amer) Est GFR (Non-Af Amer) POC Glucose (mg/dL) Random Glucose Calcium Phosphorus Magnesium Total Bilirubin AST ALT Alkaline Phosphatase Total Protein Albumin Globulin Albumin/Globulin Ratio Fluid Appearance Fluid WBC Fluid RBC Fluid Tot Cell Count Fluid Neutrophils Fluid Lymphocytes Fld Monocyte/Macrophag Fluid Comment Critical Care Progress Note - Nutrition Nutrition: Nutrition Category Date Time Status Altered GI/Hepatic Diet [DIET] Diets 10/13/16 Lunch Active Attending/Attestation - Attestation I have personally seen and examined this patient.: Yes I have fully participated in the care of the patient.: Yes I have reviewed all pertinent clinical information: Yes Notes (Text): 10/17/16 17:31 Patient seen and examined in the intensive care unit. Case discussed with house staff in the morning rounds. Assessment and plan as per resident note Continue antibiotics as per infectious disease
[2016-10-18] MEDS: Albuterol-Ipratrop 3 mg / 0.5 (3 ml) UD INH SCH ×4 (01:04→19:24)
[2016-10-18] MEDS: Morphine 4 MG/ML VIAL IV PRN ×4 (02:15→20:30)
[2016-10-18 06:51] LABS: BASO % 0.1 % (0.0-2.0); EOS # 0.1 K/uL (0.0-0.7); EOS % 0.2 % (0.0-4.0); HEMATOCRIT 25.1 % (34.0-47.0); LYMPH # 1.9 K/uL (1.0-4.3); LYMPH % 3.7 % (20.0-40.0); MEAN CELL VOLUME 111.3 fL (81.0-99.0); MEAN CORPUSCULAR HEMOGLOBIN 33.4 pg (27.0-31.0); MEAN CORPUSCULAR HGB CONC 30.1 g/dL (33.0-37.0); MEAN PLATELET VOLUME 10.1 fL (7.2-11.7); MONO # 1.3 K/uL (0.0-0.8); MONO % 2.6 % (0.0-10.0); PLATELET COUNT 291 K/uL (130-400); RED CELL DISTRIBUTION WIDTH 18.6 % (11.5-14.5)
[2016-10-18 07:14] LABS: WHITE BLOOD COUNT 51.6 K/uL (4.8-10.8)
[2016-10-18 07:27] LABS: CHLORIDE 90 mmol/L (98-107)
[2016-10-18 07:28] LABS: POTASSIUM 4.5 mmol/L (3.6-5.2); SODIUM 135 mmol/L (132-148)
[2016-10-18 07:30] LABS: ALKALINE PHOSPHATASE 144 U/L (38-126); ALT/SGPT 67 U/L (9-52); AST/SGOT 190 U/L (14-36); BILIRUBIN,TOTAL 11.5 mg/dL (0.2-1.3); BLOOD UREA NITROGEN 13 mg/dL (7-17); CARBON DIOXIDE 31 mmol/L (22-30); GFR AFRICAN-AMERICAN > 60; GLUCOSE,RANDOM 72 mg/dL (65-105)
[2016-10-18 07:31] LABS: CALCIUM 8.4 mg/dl (8.6-10.4); MAGNESIUM 1.8 mg/dL (1.6-2.3); PHOSPHOROUS 3.4 mg/dL (2.5-4.5)
--- NOTE | 2016-10-18 07:32 | CP.CCUPN ---
<Kwasi De - Last Filed: 10/18/16 09:37> CCU Subjective - Physician Review Subjective (Free Text): 10/18/16 07:32 Pt seen and examined at bedside. Pt reports no shortness of breath this AM. She reports being able to get up and move around the room without difficulty. She denies abdominal pain except 'when she presses on her belly.' She denies any episodes of nausea or vomiting overnight, but admits episodes of diarrhea from the lactulose. Pts has remained afebrile, but is persistently tachycardic. White count is trending down today, but ammonia level increased today. Pt denies recent alcohol intake, including while as a patient in the hospital. Critical Care Time Spent (in minutes): 30 CCU Objective - Vital Signs / Intake & Output Vital Signs (Last 4 hours): Vital Signs Temp Pulse Resp BP 10/18/16 06:01 121 H 24 145/77 10/18/16 04:37 125 H 27 H 143/71 10/18/16 04:00 99.6 F Intake and Output (Last 8hrs): Intake & Output 10/17/16 10/18/16 10/18/16 22:59 06:59 14:59 Intake Total 490 720 Output Total 2000 500 Balance -1510 220 Weight 217 lb Intake: Intake, IV Amount 50 Left Forearm 50 Oral 440 720 Output: Urine 500 Urine, Voided 500 Urine/Stool Mix 2000 Other: # Voids Urine, Voided 1 1 # Bowel Movements 1 - Physical Exam Head: Positive for: Atraumatic, Normocephalic Pupils: Positive for: PERRL Extroacular Muscles: Positive for: EOMI Conjunctiva: Positive for: Icteric Mouth: Positive for: Moist Mucous Membranes Respiratory/Chest: Positive for: Good Air Exchange. Negative for: Respiratory Distress, Accessory Muscle Use, Rales, Rhonchi Cardiovascular: Positive for: Regular Rate and Rhythm, Normal S1, S2 Abdomen: Positive for: Tenderness (diffuse), Distention, Normal Bowel Sounds Back: Negative for: CVA Tenderness Upper Extremity: Positive for: Normal Inspection, Other (tremors noted, which are persistent) Lower Extremity: Positive for: Edema (2+ edema), CALF TENDERNESS Neurological: Positive for: GCS=15, CN II-XII Intact, Speech Normal Skin: Positive for: Warm, Dry Psychiatric: Positive for: Alert, Oriented x 3 - Medications Active Medications: Active Medications Generic Name Dose Route Start Last Admin Trade Name Freq PRN Reason Stop Dose Admin Albuterol/Ipratropium 3 ml 10/14/16 14:00 10/18/16 01:04 Duoneb 3 Mg/0.5 Mg (3 Ml) Ud INH Not Given RQ6 DAKSHA Budesonide 0.5 mg 10/13/16 20:00 10/17/16 20:13 Pulmicort Respules INH Not Given RQ12 DAKSHA Furosemide 20 mg 10/15/16 10:00 10/17/16 09:20 Lasix IVP 20 mg DAILY DAKSHA Administration Gabapentin 300 mg 10/13/16 10:00 10/17/16 17:34 Neurontin PO 300 mg BID DAKSHA Administration Cefepime HCl 50 mls @ 100 mls/hr 10/16/16 10:45 10/17/16 22:15 Maxipime Iv 1 Gm Premix IVPB 100 mls/hr Q12H DAKSHA Administration Moxifloxacin HCl 250 mls @ 167 mls/hr 10/16/16 11:30 10/17/16 12:15 Avelox Iv 400mg/250ml Ns IVPB 167 mls/hr Q24H DAKSHA Administration Lactulose 30 gm 10/15/16 10:00 10/17/16 09:20 Enulose PO 30 gm DAILY DAKSHA Administration Morphine Sulfate 2 mg 10/16/16 10:45 10/18/16 02:15 Morphine IV 2 mg Q6 PRN Administration Pain, moderate (4-7) Potassium Chloride 20 meq 10/14/16 10:15 10/17/16 10:26 K-Dur 20 Meq Er Tab PO Not Given DAILY DAKSHA Prednisone 20 mg 10/15/16 09:38 10/17/16 09:19 Prednisone Tab PO 20 mg DAILY DAKSHA Administration Rifaximin 550 mg 10/13/16 10:45 10/17/16 17:34 Xifaxan PO 550 mg BID DAKSHA Administration Spironolactone 50 mg 10/13/16 13:27 10/17/16 09:20 Aldactone PO 50 mg DAILY DAKSHA Administration - Patient Studies Lab Studies: Lab Studies 10/18/16 10/17/16 Range/Units 06:43 06:35 WBC 51.6 H* (4.8-10.8) K/uL RBC 2.25 L (3.80-5.20) Mil/uL Hgb 7.5 L (11.0-16.0) g/dL Hct 25.1 L (34.0-47.0) % MCV 111.3 H (81.0-99.0) fL MCH 33.4 H (27.0-31.0) pg MCHC 30.1 L (33.0-37.0) g/dL RDW 18.6 H (11.5-14.5) % Plt Count 291 (130-400) K/uL MPV 10.1 (7.2-11.7) fL Neut % (Auto) 93.4 H (50.0-75.0) % Lymph % (Auto) 3.7 L (20.0-40.0) % [place] % (Auto) 2.6 (0.0-10.0) % Eos % (Auto) 0.2 (0.0-4.0) % Baso % (Auto) 0.1 (0.0-2.0) % Neut # 48.2 H (1.8-7.0) K/uL Lymph # 1.9 (1.0-4.3) K/uL [place] # 1.3 H (0.0-0.8) K/uL Eos # 0.1 (0.0-0.7) K/uL Baso # 0.0 (0.0-0.2) K/uL Neutrophils % (Manual) 77 H (50-75) % Band Neutrophils % 16 H* (0-2) % Lymphocytes % (Manual) 4 L (20-40) % Monocytes % (Manual) 3 (0-10) % Nucleated RBC % 1 H (0-0) % Platelet Estimate Normal (NORMAL) Polychromasia Slight Hypochromasia (manual) Slight Anisocytosis (manual) Slight Macrocytosis (manual) Moderate Spherocytes Slight Target Cells Slight Laboratory Results - last 24 hr 10/17/16 10/18/16 06:35 06:43 WBC 51.6 H* RBC 2.25 L Hgb 7.5 L Hct 25.1 L MCV 111.3 H MCH 33.4 H MCHC 30.1 L RDW 18.6 H Plt Count 291 MPV 10.1 Neut % (Auto) 93.4 H Lymph % (Auto) 3.7 L [place] % (Auto) 2.6 Eos % (Auto) 0.2 Baso % (Auto) 0.1 Neut # 48.2 H Lymph # 1.9 [place] # 1.3 H Eos # 0.1 Baso # 0.0 Neutrophils % (Manual) 77 H Band Neutrophils % 16 H* Lymphocytes % (Manual) 4 L Monocytes % (Manual) 3 Nucleated RBC % 1 H Platelet Estimate Normal Polychromasia Slight Hypochromasia (manual) Slight Anisocytosis (manual) Slight Macrocytosis (manual) Moderate Spherocytes Slight Target Cells Slight Fingerstick Blood Sugar Results: 166 Review of Systems - Constitutional Constitutional: absent: Fever, Chills - EENT Eyes: absent: Change in Vision Ears: absent: Decreased Hearing - Cardiovascular Cardiovascular: absent: Chest Pain, Chest Pain at Rest, Dyspnea, Dyspnea on Exertion - Respiratory Respiratory: absent: Cough, Dyspnea on Exertion - Gastrointestinal Gastrointestinal: Diarrhea (multiple episodes overnight, on lactulose). absent : Abdominal Pain, Nausea, Vomiting - Genitourinary Genitourinary: absent: Dysuria - Musculoskeletal Musculoskeletal: absent: Numbness, Tingling - Neurological Neurological: absent: Dizziness, Tingling, Weakness - Psychiatric Psychiatric: absent: Anxiety, Depression - Endocrine Endocrine: absent: Polydipsia, Polyphagia, Polyuria Critical Care Progress Note - Nutrition Nutrition: Nutrition Category Date Time Status Altered GI/Hepatic Diet [DIET] Diets 10/13/16 Lunch Active Assessment/Plan - Assessment and Plan (Free Text) Assessment: 31 F with PMHx of Anxiety, asthma, HTN, and alcoholic hepatitis with decompensated liver failure, presents following seizure. No ascites for drainage. Persistent leukocytosis, but now downtrending. Pleural effusion drained by IR on 10/16. Day 3 of Primaxin, Avelox. Plan: Neuro: AAOx3 Seizure D/O - Gabapentin 300mg PO BID Hepatic Encephalopathy on presentation - Ammonia 78 today, mentating without difficulty Cardio: Tachycardic (120's), Normotensive, Afebrile Hypokalemia, resolved - Kdur 20mg PO daily Pulm: 3L O2 Asthma - Pulmicort Respules 0.5mg Q12H substituted for home Advair CT A/P (10/15/16): RLL consolidation and pleural effusion. Mild left lung atelectasis. 6mm left lower lobe pulm nodule (should have repeat CT in 3-12 months based on malignancy risk). (see full report) CXR (10/16/16): moderate to large rt pleural effusion with consolidative changes in rt mid-lower lung zone. Venous congestion. Upper lobe granulomatous changes. Scattered nodularity in upper lung zones. Cardiomegaly. (see full report) CT Chest (10/16/16): Moderate to large right pleural effusion. Complete consolidation of right lower lobe and partial collapse/consolidation of of right middle lobe. Ground glass opacities. Cardiomegaly. (see full report) IR thoracentesis (10/17/16) - 500cc removed - f/u cytology studies Sputum culture (10/14/16): Klebsiella pneumoniae - Continued Maxipime 1gm Q12H IV (day three) - Continued Avelox 400mg IV Daily (day three) GI: Bedside Ultrasound (10/13/16) - No ascitic fluid appreciated, therefore no paracentesis at this time CT A/P (10/15/16): RLL consolidation and pleural effusion. Mild left lung atelectasis. 6mm left lower lobe pulm nodule (should have repeat CT in 3-12 months based on malignancy risk). Small hiatal hernia w GERD. Hepatosplenomegaly. Hepatic steatosis. GB contracted limiting evaluation, suspect wall thickening, questionable presence of debris/gallstones. Small abdominal/pelvic ascites. Soft tissue edema. (see full report) Hyperammonemia: 49 (10/15/16) - 78 today - Lactulose increased to Q6H - Spirinolactone 50mg Daily - Rifaximin 550mg PO BID - Lasix 20mg IV daily Elevated LFTs: - secondary to alcoholic hepatitis w. decompensated liver failure - AST/ALT/ALK phos: elevated, but downtrending GI/hepatic diet /Renal: BUN/Cr WNL Monitor I/Os Hem: Anemia of chronic disease - Hgb 7.5; decreased this AM but c/w prior admissions - Type and screen ordered Coagulopathy (elevated INR) on admission - secondary to liver failure PT/INR/PTT (10/15/16): 16/.10/28 ID: CODE [id number] (10/13/16) Criteria on admission: Leukocytosis 60.5, Tachycardic, Tachypnic - WBC downtrending; 51.3 today, left shift w. [address] Velazquez, ID consult: help appreciated - maintain current antibiotic course Sputum Cx (10/14/16): Klebsiella Pneumoniae - Continue Maxipime 1 gm IV Daily (Day three) - Continue Avelox 400mg IV Daily (Day three) Cdiff (10/13/16): negative Blood cx (10/13/16): no growth for 5 days x 2 Urine cx (10/13/16): no growth MRSA screen (10/13/16): not detected Prednisone 20mg PO Daily Rifaximin 550mg PO BID Hx of Benzo/Alcohol Abuse - UDS negative MSKLTL: Bilateral leg swelling, bedridden for one week - Venous dopplers b/l (10/13/16): negative PT/OT eval Prophylaxis: DVT: SCDs contraindicated due to swollen legs VTE: Heparin 5000 units q12h GI: Protonix IV daily <Jero Friend - Last Filed: 10/18/16 16:06> CCU Objective - Vital Signs / Intake & Output Vital Signs (Last 4 hours): Vital Signs Pulse Resp BP 10/18/16 14:30 130 H 26 H 143/72 Intake and Output (Last 8hrs): Intake & Output 10/18/16 10/18/16 10/18/16 06:59 14:59 22:59 Intake Total 720 700 Output Total 500 1400 Balance 220 -700 Weight 217 lb Intake: Intake, IV Amount 300 Left Forearm 300 Oral 720 400 Output: Urine 500 Urine, Voided 500 Urine/Stool Mix 1400 Other: # Voids Urine, Voided 1 0 # Bowel Movements 0 - Medications Active Medications: Active Medications Generic Name Dose Route Start Last Admin Trade Name Freq PRN Reason Stop Dose Admin Albuterol/Ipratropium 3 ml 10/14/16 14:00 10/18/16 14:00 Duoneb 3 Mg/0.5 Mg (3 Ml) Ud INH 3 ml RQ6 DAKSHA Administration Budesonide 0.5 mg 10/13/16 20:00 10/18/16 07:37 Pulmicort Respules INH 0.5 mg RQ12 DAKSHA Administration Furosemide 20 mg 10/15/16 10:00 10/18/16 10:21 Lasix IVP 20 mg DAILY DAKSHA Administration Gabapentin 300 mg 10/13/16 10:00 10/18/16 10:20 Neurontin PO 300 mg BID DAKSHA Administration Heparin Sodium (Porcine) 5,000 units 10/18/16 10:00 10/18/16 10:25 Heparin SC 5,000 units Q12H DAKSHA Administration Cefepime HCl 50 mls @ 100 mls/hr 10/16/16 10:45 10/18/16 10:20 Maxipime Iv 1 Gm Premix IVPB 100 mls/hr Q12H DAKSHA Administration Moxifloxacin HCl 250 mls @ 167 mls/hr 10/16/16 11:30 10/18/16 11:47 Avelox Iv 400mg/250ml Ns IVPB 167 mls/hr Q24H DAKSHA Administration Lactulose 30 gm 10/18/16 08:00 10/18/16 11:48 Enulose PO 30 gm Q6 DAKSHA Administration Morphine Sulfate 2 mg 10/16/16 10:45 10/18/16 14:29 Morphine IV 2 mg Q6 PRN Administration Pain, moderate (4-7) Potassium Chloride 20 meq 10/14/16 10:15 10/18/16 10:23 K-Dur 20 Meq Er Tab PO Not Given DAILY DAKSHA Prednisone 20 mg 10/15/16 09:38 10/18/16 10:21 Prednisone Tab PO 20 mg DAILY DAKSHA Administration Rifaximin 550 mg 10/13/16 10:45 10/18/16 10:21 Xifaxan PO 550 mg BID DAKSHA Administration Spironolactone 50 mg 10/13/16 13:27 10/18/16 10:20 Aldactone PO 50 mg DAILY DAKSHA Administration - Patient Studies Lab Studies: Lab Studies 10/18/16 10/18/16 10/16/16 Range/Units 11:28 06:43 15:28 WBC 51.6 H* (4.8-10.8) K/uL RBC 2.25 L (3.80-5.20) Mil/uL Hgb 7.5 L (11.0-16.0) g/dL Hct 25.1 L (34.0-47.0) % MCV 111.3 H (81.0-99.0) fL MCH 33.4 H (27.0-31.0) pg MCHC 30.1 L (33.0-37.0) g/dL RDW 18.6 H (11.5-14.5) % Plt Count 291 (130-400) K/uL MPV 10.1 (7.2-11.7) fL Neut % (Auto) 93.4 H (50.0-75.0) % Lymph % (Auto) 3.7 L (20.0-40.0) % [place] % (Auto) 2.6 (0.0-10.0) % Eos % (Auto) 0.2 (0.0-4.0) % Baso % (Auto) 0.1 (0.0-2.0) % Neut # 48.2 H (1.8-7.0) K/uL Lymph # 1.9 (1.0-4.3) K/uL [place] # 1.3 H (0.0-0.8) K/uL Eos # 0.1 (0.0-0.7) K/uL Baso # 0.0 (0.0-0.2) K/uL Neutrophils % (Manual) 72 (50-75) % Band Neutrophils % 17 H* (0-2) % Lymphocytes % (Manual) 5 L (20-40) % Reactive Lymphs % 1 H (0-0) % Monocytes % (Manual) 5 (0-10) % Toxic Granulation Present Platelet Estimate Normal (NORMAL) Polychromasia Slight Poikilocytosis (manual Slight Anisocytosis (manual) Slight Microcytosis (manual) Slight Macrocytosis (manual) Slight Target Cells Slight Sodium 135 (132-148) mmol/L Potassium 4.5 (3.6-5.2) mmol/L Chloride 90 L (98-107) mmol/L Carbon Dioxide 31 H (22-30) mmol/L Anion Gap 19 (10-20) BUN 13 (7-17) mg/dL Creatinine 0.6 L (0.7-1.2) MG/DL Est GFR ( Amer) > 60 Est GFR (Non-Af Amer) > 60 Random Glucose 72 (65-105) mg/dL Calcium 8.4 L (8.6-10.4) mg/dl Phosphorus 3.4 (2.5-4.5) mg/dL Magnesium 1.8 (1.6-2.3) mg/dL Total Bilirubin 11.5 H (0.2-1.3) mg/dL AST 190 H (14-36) U/L ALT 67 H (9-52) U/L Alkaline Phosphatase 144 H (38-126) U/L Ammonia 78 H D (9-33) umol/L Total Protein 7.0 (6.3-8.3) g/dL Albumin 3.6 (3.5-5.0) g/dL Globulin 3.5 (2.2-3.9) gm/dL Albumin/Globulin Ratio 1.0 (1.0-2.1) Pleural Total Protein <3.0 (()) g/dL Pleural LDH (()) U/L Pleural Glucose 129 (()) mg/dL Pleural Cholesterol 53 (()) mg/dL Alcohol, Quantitative < 10 (0-10) mg/dl Blood Type O POSITIVE Antibody Screen Negative 10/16/16 Range/Units 15:27 WBC (4.8-10.8) K/uL RBC (3.80-5.20) Mil/uL Hgb (11.0-16.0) g/dL Hct (34.0-47.0) % MCV (81.0-99.0) fL MCH (27.0-31.0) pg MCHC (33.0-37.0) g/dL RDW (11.5-14.5) % Plt Count (130-400) K/uL MPV (7.2-11.7) fL Neut % (Auto) (50.0-75.0) % Lymph % (Auto) (20.0-40.0) % [place] % (Auto) (0.0-10.0) % Eos % (Auto) (0.0-4.0) % Baso % (Auto) (0.0-2.0) % Neut # (1.8-7.0) K/uL Lymph # (1.0-4.3) K/uL [place] # (0.0-0.8) K/uL Eos # (0.0-0.7) K/uL Baso # (0.0-0.2) K/uL Neutrophils % (Manual) (50-75) % Band Neutrophils % (0-2) % Lymphocytes % (Manual) (20-40) % Reactive Lymphs % (0-0) % Monocytes % (Manual) (0-10) % Toxic Granulation Platelet Estimate (NORMAL) Polychromasia Poikilocytosis (manual Anisocytosis (manual) Microcytosis (manual) Macrocytosis (manual) Target Cells Sodium (132-148) mmol/L Potassium (3.6-5.2) mmol/L Chloride (98-107) mmol/L Carbon Dioxide (22-30) mmol/L Anion Gap (10-20) BUN (7-17) mg/dL Creatinine (0.7-1.2) MG/DL Est GFR ( Amer) Est GFR (Non-Af Amer) Random Glucose (65-105) mg/dL Calcium (8.6-10.4) mg/dl Phosphorus (2.5-4.5) mg/dL Magnesium (1.6-2.3) mg/dL Total Bilirubin (0.2-1.3) mg/dL AST (14-36) U/L ALT (9-52) U/L Alkaline Phosphatase (38-126) U/L Ammonia (9-33) umol/L Total Protein (6.3-8.3) g/dL Albumin (3.5-5.0) g/dL Globulin (2.2-3.9) gm/dL Albumin/Globulin Ratio (1.0-2.1) Pleural Total Protein (()) g/dL Pleural LDH 61 (()) U/L Pleural Glucose (()) mg/dL Pleural Cholesterol (()) mg/dL Alcohol, Quantitative (0-10) mg/dl Blood Type Antibody Screen Laboratory Results - last 24 hr 10/16/16 10/16/16 10/18/16 15:27 15:28 06:43 WBC 51.6 H* RBC 2.25 L Hgb 7.5 L Hct 25.1 L MCV 111.3 H MCH 33.4 H MCHC 30.1 L RDW 18.6 H Plt Count 291 MPV 10.1 Neut % (Auto) 93.4 H Lymph % (Auto) 3.7 L [place] % (Auto) 2.6 Eos % (Auto) 0.2 Baso % (Auto) 0.1 Neut # 48.2 H Lymph # 1.9 [place] # 1.3 H Eos # 0.1 Baso # 0.0 Neutrophils % (Manual) 72 Band Neutrophils % 17 H* Lymphocytes % (Manual) 5 L Reactive Lymphs % 1 H Monocytes % (Manual) 5 Toxic Granulation Present Platelet Estimate Normal Polychromasia Slight Poikilocytosis (manual Slight Anisocytosis (manual) Slight Microcytosis (manual) Slight Macrocytosis (manual) Slight Target Cells Slight Sodium 135 Potassium 4.5 Chloride 90 L Carbon Dioxide 31 H Anion Gap 19 BUN 13 Creatinine 0.6 L Est GFR ( Amer) > 60 Est GFR (Non-Af Amer) > 60 Random Glucose 72 Calcium 8.4 L Phosphorus 3.4 Magnesium 1.8 Total Bilirubin 11.5 H AST 190 H ALT 67 H Alkaline Phosphatase 144 H Ammonia 78 H D Total Protein 7.0 Albumin 3.6 Globulin 3.5 Albumin/Globulin Ratio 1.0 Pleural Total Protein <3.0 Pleural LDH 61 Pleural Glucose 129 Pleural Cholesterol 53 Alcohol, Quantitative < 10 Blood Type Antibody Screen 10/18/16 11:28 WBC RBC Hgb Hct MCV MCH MCHC RDW Plt Count MPV Neut % (Auto) Lymph % (Auto) [place] % (Auto) Eos % (Auto) Baso % (Auto) Neut # Lymph # [place] # Eos # Baso # Neutrophils % (Manual) Band Neutrophils % Lymphocytes % (Manual) Reactive Lymphs % Monocytes % (Manual) Toxic Granulation Platelet Estimate Polychromasia Poikilocytosis (manual Anisocytosis (manual) Microcytosis (manual) Macrocytosis (manual) Target Cells Sodium Potassium Chloride Carbon Dioxide Anion Gap BUN Creatinine Est GFR ( Amer) Est GFR (Non-Af Amer) Random Glucose Calcium Phosphorus Magnesium Total Bilirubin AST ALT Alkaline Phosphatase Ammonia Total Protein Albumin Globulin Albumin/Globulin Ratio Pleural Total Protein Pleural LDH Pleural Glucose Pleural Cholesterol Alcohol, Quantitative Blood Type O POSITIVE Antibody Screen Negative Critical Care Progress Note - Nutrition Nutrition: Nutrition Category Date Time Status Altered GI/Hepatic Diet [DIET] Diets 10/13/16 Lunch Active Attending/Attestation - Attestation I have personally seen and examined this patient.: Yes I have fully participated in the care of the patient.: Yes I have reviewed all pertinent clinical information: Yes Notes (Text): 10/18/16 16:03 Patient seen and examined in the intensive care unit. Case discussed with house staff in the morning rounds. lactulose was increased because of elevated ammonia level Patient awake and responsive in no distress Continue antibiotics as per infectious disease
[2016-10-18] MEDS: Budesonide 0.5 mg/2 ml Inhal Susp UD INH SCH ×2 (07:37→19:24)
[2016-10-18 08:44] LABS: NEUTROPHIL 72 % (50-75); REACTIVE LYMPHOCYTES 1 % (0-0); TOTAL CELLS COUNTED 100
[2016-10-18 09:18] LABS: ALCOHOL SERUM < 10 mg/dl (0-10)
[2016-10-18] MEDS: Cefepime IV 1 gm in Dextrose 50 ML IVPB SCH ×2 (10:20→22:05)
[2016-10-18] MEDS: Potassium Chloride 20 mEq ER Tab PO SCH (10:23)
--- NOTE | 2016-10-18 10:23 | CON ---
HISTORY OF PRESENT ILLNESS: This is a 31-year-old female admitted to [facility] with a chief complaint of jaundice and severe generalized weakness. The patient has a long history of alc oholic liver disease and was recently transferred from [facility] to [facility] with alcoholic liver disease, acute exacerbation, liver failure and . The patient was being evaluated for possible transplant, but because of the circumstances regarding her risk factors for liver disease including c hronic alcoholism, the patient was rejected. The patient comes back to [facility] complaining o f abdominal pain, weakness, fatigue, fever, chills. The patient complains of abdominal pain, abdomin al distention, jaundice, yellow skin, yellow eyes, cough, congestion, sputum production of phlegm, bi lateral leg edema. She denies any loss of consciousness. No anterior chest pain. No current active bleeding. FAMILY HISTORY: Noncontributory. ALLERGIES: No known allergies to medications. CURRENT MEDICATIONS: Include cefepime, Avelox, lactulose. Medications also include diuretics. FAMILY HISTORY: Noncontributory. Positive high blood pressure. ALLERGIES: None. REVIEW OF SYSTEMS: Positive for jaundice, weakness, malaise, cough, shortness of breath. No abdomin al pain, nausea, vomiting, diarrhea. No change in bowel habits. PHYSICAL EXAMINATION: GENERAL: Reveals a chronically ill young female who appears to be uncomfortable. VITAL SIGNS: Her temperature is 98, blood pressure 120/70, heart rate 96, respiratory rate is 16. HEENT: Normocephalic, atraumatic. Eyes: Pupils reactive to light. Sclerae nonicteric. Positive c onjunctival injection, positive scleral icterus, positive jaundice. NECK: No rigidity, no thyromegaly, no bruits. No jugular deviation. CHEST: Symmetrical expansion. HEART: S1, S2. No murmurs, rubs, or gallops. ABDOMEN: Obese. Positive ascites. Positive tenderness to deep palpation only. No rebound. No CVA tenderness. RECTAL: Deferred. EXTREMITIES: Reveal osteoarthritic changes, mild degree, 3+ edema of both lower extremities. Pulses nonpalpable. Joints freely mobile. NEUROLOGIC: Cranial nerves II-XII intact. LABORATORY DATA: Reviewed. White count is 49,000. HOSPITAL COURSE: The patient is on chronic steroid therapy as per gastroenterology. This may predis pose to leukocytosis. The patient will have chest x-rays, the first chest x-ray showed infiltrates. The abdomen is obese, distended. Positive ascites. Mild tenderness to deep palpation. Rectal exam ination deferred. No CVA tenderness. Extremities: No cyanosis, no clubbing, no edema. Chest x-ray showed infiltrate. Sputum showed serratia sensitive to Avelox and cefepime. Blood cultu res pending. 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 She has 3+ edema and is suffering from anasarca. The possibility of underlying kidney disea se should be evaluated and renal evaluation may be recommended. IV antibiotic therapy is to continue to cover most likely organisms and serratia found in the sputum is sensitive to quinolones. We will continue current IV antibiotic therapy pending results of cultures, serologies. The patient needs c areful close monitoring and observation. Gradual improvement of pneumonia is expected. The patient is suffering from chronic severe alcoholic liver disease, cirrhosis, requiring IV antibiotic therapy. The patient will continue to see me as an outpatient once cleared; however, currently patient is cl inically ill, short of breath, coughing and rash on the legs noted, 3+ edema noted. IV antibiotic th erapy reordered will follow along with you and add further recommendations. Thank you very much for allowing me to participate in care of this patient. Chris Velazquez MD cc: [id number] TT: 10/18/2016 10:23:10 an
[2016-10-18] MEDS: Moxifloxacin IV 400mg/250ml NS 250 ML IVPB SCH (11:47)
[2016-10-18 12:25] LABS: CHOLESTEROL PLEURAL FLUID 53 mg/dL (()); GLUCOSE PLEURAL FLUID 129 mg/dL (())
--- NOTE | 2016-10-18 17:48 | CP.PCM.PN ---
Subjective - Date & Time of Evaluation Date of Evaluation: 10/18/16 Time of Evaluation: 09:00 - Subjective Subjective: klebs sens to cefepime/ levo events noted legs swollen Objective - Vital Signs/Intake and Output Vital Signs (last 24 hours): Temp Pulse Resp BP Pulse Ox 99.9 F H 128 H 23 139/70 97 10/18/16 16:00 10/18/16 16:03 10/18/16 16:03 10/18/16 16:03 10/18/16 16:00 Intake and Output: 10/18/16 10/18/16 06:59 18:59 Intake Total 1010 700 Output Total 1000 1400 Balance 10 -700 - Medications Medications: Current Medications Albuterol/Ipratropium (Duoneb 3 Mg/0.5 Mg (3 Ml) Ud) 3 ml INH RQ6 DAKSHA Last Admin: 10/18/16 14:00 Dose: 3 ml Budesonide (Pulmicort Respules) 0.5 mg INH RQ12 DAKSHA Last Admin: 10/18/16 07:37 Dose: 0.5 mg Furosemide (Lasix) 20 mg IVP DAILY [facility] Last Admin: 10/18/16 10:21 Dose: 20 mg Gabapentin (Neurontin) 300 mg PO BID [facility] Last Admin: 10/18/16 17:32 Dose: 300 mg Heparin Sodium (Porcine) (Heparin) 5,000 units SC Q12H DAKSHA Last Admin: 10/18/16 10:25 Dose: 5,000 units Cefepime HCl (Maxipime Iv 1 Gm Premix) 50 mls @ 100 mls/hr IVPB Q12H DAKSHA Last Admin: 10/18/16 10:20 Dose: 100 mls/hr Moxifloxacin HCl (Avelox Iv 400mg/250ml Ns) 250 mls @ 167 mls/hr IVPB Q24H DAKSHA Last Admin: 10/18/16 11:47 Dose: 167 mls/hr Lactulose (Enulose) 30 gm PO Q6 DAKSHA Last Admin: 10/18/16 17:28 Dose: 30 gm Morphine Sulfate (Morphine) 2 mg IV Q6 PRN PRN Reason: Pain, moderate (4-7) Last Admin: 10/18/16 14:29 Dose: 2 mg Potassium Chloride (K-Dur 20 Meq Er Tab) 20 meq PO DAILY [facility] Last Admin: 10/18/16 10:23 Dose: Not Given Prednisone (Prednisone Tab) 20 mg PO DAILY [facility] Last Admin: 10/18/16 10:21 Dose: 20 mg Rifaximin (Xifaxan) 550 mg PO BID [facility] Last Admin: 10/18/16 17:32 Dose: 550 mg Spironolactone (Aldactone) 50 mg PO DAILY [facility] Last Admin: 10/18/16 10:20 Dose: 50 mg - Labs Labs: 10/18/16 06:43 10/18/16 06:43 PT 16.0 SECONDS (9.7-12.2) H 10/15/16 06:52 INR 1.4 10/15/16 06:52 APTT 29 SECONDS (21-34) 10/15/16 06:52 - Constitutional Appears: Non-toxic, Chronically Ill - Head Exam Head Exam: NORMOCEPHALIC - Eye Exam Eye Exam: absent: Scleral icterus - ENT Exam ENT Exam: Mucous Membranes Dry - Neck Exam Neck Exam: absent: Lymphadenopathy - Respiratory Exam Respiratory Exam: Decreased Breath Sounds - Cardiovascular Exam Cardiovascular Exam: REGULAR RHYTHM - GI/Abdominal Exam GI & Abdominal Exam: Distended, Soft - Rectal Exam Rectal Exam: Deferred Assessment and Plan (1) Hepatic encephalopathy Status: Acute (2) Liver failure Status: Acute (3) Seizure Status: Acute (4) Sepsis Status: Acute
[2016-10-19] MEDS: Morphine 4 MG/ML VIAL IV PRN ×4 (02:35→20:30)
[2016-10-19] MEDS: Albuterol-Ipratrop 3 mg / 0.5 (3 ml) UD INH SCH ×4 (03:10→20:15)
[2016-10-19 06:43] LABS: BASO # 0.6 K/uL (0.0-0.2); BASO % 1.1 % (0.0-2.0); EOS # 0.1 K/uL (0.0-0.7); EOS % 0.2 % (0.0-4.0); HEMATOCRIT 25.1 % (34.0-47.0); LYMPH % 3.7 % (20.0-40.0); MEAN CELL VOLUME 110.3 fL (81.0-99.0); MEAN CORPUSCULAR HEMOGLOBIN 33.3 pg (27.0-31.0); MEAN CORPUSCULAR HGB CONC 30.2 g/dL (33.0-37.0); MEAN PLATELET VOLUME 9.9 fL (7.2-11.7); MONO # 1.5 K/uL (0.0-0.8); MONO % 2.8 % (0.0-10.0); PLATELET COUNT 325 K/uL (130-400); RED CELL DISTRIBUTION WIDTH 18.5 % (11.5-14.5)
[2016-10-19 06:50] LABS: CHLORIDE 93 mmol/L (98-107); POTASSIUM 3.7 mmol/L (3.6-5.2); SODIUM 138 mmol/L (132-148)
[2016-10-19 06:52] LABS: ALKALINE PHOSPHATASE 164 U/L (38-126); AST/SGOT 182 U/L (14-36); BILIRUBIN,TOTAL 12.1 mg/dL (0.2-1.3); CARBON DIOXIDE 30 mmol/L (22-30); GFR AFRICAN-AMERICAN > 60; TOTAL PROTEIN 6.9 g/dL (6.3-8.3)
[2016-10-19 06:53] LABS: ALT/SGPT 77 U/L (9-52); BLOOD UREA NITROGEN 12 mg/dL (7-17); CALCIUM 8.6 mg/dl (8.6-10.4); GLUCOSE,RANDOM 96 mg/dL (65-105); MAGNESIUM 1.9 mg/dL (1.6-2.3); PHOSPHOROUS 3.3 mg/dL (2.5-4.5)
[2016-10-19 06:55] LABS: WHITE BLOOD COUNT 53.9 K/uL (4.8-10.8)
[2016-10-19] MEDS: Budesonide 0.5 mg/2 ml Inhal Susp UD INH SCH ×2 (08:27→20:15)
[2016-10-19 08:35] LABS: METAMYELOCYTE 1 % (0-0); NEUTROPHIL 70 % (50-75); TOTAL CELLS COUNTED 100
[2016-10-19 08:36] LABS: LARGE PLATELETS PRESENT
[2016-10-19 08:37] LABS: PLATELET CLUMPS PRESENT
--- NOTE | 2016-10-19 11:07 | CP.CCUPN ---
<Kwasi De - Last Filed: 10/19/16 13:33> CCU Subjective - Physician Review Subjective (Free Text): 10/19/16 11:01 Pt seen and examined at bedside. Pt reports no abdominal pain, nausea, or vomiting this AM. However, pt c/o neck and back pain due to 'history of herniated discs.' She states the pain is intermittent, 10/10, that starts in the neck and travels down to her mid-thoracic spine. She describes the sensation as 'an electric shock.' She denies history of trauma, weakness, or numbness, in her extremities. Pt witnessed walking around, bending over, cleaning room without difficulty earlier in the day. Pt requesting additional morphine, but will attempt lidoderm patch before considering additional opioid. Pt admits worsening anxiety today. She has past history of xanax abuse, with completed, and understands caution with further use. Pt has been on Paxil/ Effexor in the past but 'does not remember' if they were helpful. She admits multiple episodes of diarrhea from the lactulose. Ammonia level dropped from 78 to 60, since lactulose changed to every six hours. Pt remained afebrile overnight, but is persistently tachycardic. White count slightly increased today but is stable, albeit elevated, since admission. Pt for transfer to med/surg floor this AM. Critical Care Time Spent (in minutes): 40 CCU Objective - Vital Signs / Intake & Output Intake and Output (Last 8hrs): Intake & Output 10/18/16 10/19/16 10/19/16 22:59 06:59 14:59 Intake Total 530 720 Output Total 1000 400 Balance -470 320 Weight 217 lb Intake: Intake, IV Amount 50 Left Forearm 50 Oral 480 720 Output: Urine/Stool Mix 1000 400 Other: # Voids Urine, Voided 1 1 # Bowel Movements 1 1 - Physical Exam Head: Positive for: Atraumatic, Normocephalic Pupils: Positive for: PERRL Extroacular Muscles: Positive for: EOMI Conjunctiva: Positive for: Icteric Mouth: Positive for: Moist Mucous Membranes Respiratory/Chest: Positive for: Good Air Exchange. Negative for: Respiratory Distress, Accessory Muscle Use, Rales, Rhonchi Cardiovascular: Positive for: Regular Rate and Rhythm, Normal S1, S2 Abdomen: Positive for: Tenderness (diffuse tenderness but improved since admission), Distention (chronic finding since admission; no fluid wave), Normal Bowel Sounds Back: Positive for: Paraspinal Tenderness (TTP C3-C7, T8-T12; limited rom in rotation sidebending in neck/back). Negative for: CVA Tenderness Upper Extremity: Positive for: Normal Inspection, Other (tremors noted, which are persistent) Lower Extremity: Positive for: Edema (2+ edema), CALF TENDERNESS Neurological: Positive for: GCS=15, CN II-XII Intact, Speech Normal Skin: Positive for: Warm, Dry, Other (Jaundice) Psychiatric: Positive for: Alert, Oriented x 3, Anxious - Medications Active Medications: Active Medications Generic Name Dose Route Start Last Admin Trade Name Freq PRN Reason Stop Dose Admin Albuterol/Ipratropium 3 ml 10/14/16 14:00 10/19/16 08:27 Duoneb 3 Mg/0.5 Mg (3 Ml) Ud INH 3 ml RQ6 DAKSHA Administration Budesonide 0.5 mg 10/13/16 20:00 10/19/16 08:27 Pulmicort Respules INH 0.5 mg RQ12 DAKSHA Administration Furosemide 20 mg 10/15/16 10:00 10/18/16 10:21 Lasix IVP 20 mg DAILY DAKSHA Administration Gabapentin 300 mg 10/13/16 10:00 10/18/16 17:32 Neurontin PO 300 mg BID DAKSHA Administration Heparin Sodium (Porcine) 5,000 units 10/18/16 10:00 10/18/16 22:05 Heparin SC 5,000 units Q12H DAKSHA Administration Cefepime HCl 50 mls @ 100 mls/hr 10/16/16 10:45 10/18/16 22:05 Maxipime Iv 1 Gm Premix IVPB 100 mls/hr Q12H DAKSHA Administration Moxifloxacin HCl 250 mls @ 167 mls/hr 10/16/16 11:30 10/18/16 11:47 Avelox Iv 400mg/250ml Ns IVPB 167 mls/hr Q24H DAKSHA Administration Lactulose 30 gm 10/18/16 08:00 10/19/16 05:30 Enulose PO 30 gm Q6 DAKSHA Administration Morphine Sulfate 2 mg 10/16/16 10:45 10/19/16 02:35 Morphine IV 2 mg Q6 PRN Administration Pain, moderate (4-7) Pantoprazole Sodium 40 mg 10/19/16 10:00 Protonix Inj IVP DAILY [facility] Potassium Chloride 20 meq 10/14/16 10:15 10/18/16 10:23 K-Dur 20 Meq Er Tab PO Not Given DAILY DAKSHA Prednisone 20 mg 10/15/16 09:38 10/18/16 10:21 Prednisone Tab PO 20 mg DAILY DAKSHA Administration Rifaximin 550 mg 10/13/16 10:45 10/18/16 17:32 Xifaxan PO 550 mg BID DAKSHA Administration Spironolactone 50 mg 10/13/16 13:27 10/18/16 10:20 Aldactone PO 50 mg DAILY DAKSHA Administration - Patient Studies Lab Studies: Lab Studies 10/19/16 10/18/16 10/16/16 Range/Units 06:30 11:28 15:28 WBC 53.9 H* (4.8-10.8) K/uL RBC 2.28 L (3.80-5.20) Mil/uL Hgb 7.6 L (11.0-16.0) g/dL Hct 25.1 L (34.0-47.0) % MCV 110.3 H (81.0-99.0) fL MCH 33.3 H (27.0-31.0) pg MCHC 30.2 L (33.0-37.0) g/dL RDW 18.5 H (11.5-14.5) % Plt Count 325 (130-400) K/uL MPV 9.9 (7.2-11.7) fL Neut % (Auto) 92.2 H (50.0-75.0) % Lymph % (Auto) 3.7 L (20.0-40.0) % Coles % (Auto) 2.8 (0.0-10.0) % Eos % (Auto) 0.2 (0.0-4.0) % Baso % (Auto) 1.1 (0.0-2.0) % Neut # 49.8 H (1.8-7.0) K/uL Lymph # 2.0 (1.0-4.3) K/uL Coles # 1.5 H (0.0-0.8) K/uL Eos # 0.1 (0.0-0.7) K/uL Baso # 0.6 H (0.0-0.2) K/uL Neutrophils % (Manual) 70 (50-75) % Band Neutrophils % 19 H* (0-2) % Lymphocytes % (Manual) 5 L (20-40) % Monocytes % (Manual) 5 (0-10) % Metamyelocytes % 1 H (0-0) % Platelet Estimate Normal (NORMAL) Plt Clumps, EDTA Present Large Platelets Present Polychromasia Slight Hypochromasia (manual) Slight Poikilocytosis (manual Slight Anisocytosis (manual) Slight Macrocytosis (manual) Slight Target Cells Slight Tear Drop Cells Slight Sodium 138 (132-148) mmol/L Potassium 3.7 (3.6-5.2) mmol/L Chloride 93 L (98-107) mmol/L Carbon Dioxide 30 (22-30) mmol/L Anion Gap 19 (10-20) BUN 12 (7-17) mg/dL Creatinine 0.6 L (0.7-1.2) MG/DL Est GFR ( Amer) > 60 Est GFR (Non-Af Amer) > 60 Random Glucose 96 (65-105) mg/dL Calcium 8.6 (8.6-10.4) mg/dl Phosphorus 3.3 (2.5-4.5) mg/dL Magnesium 1.9 (1.6-2.3) mg/dL Total Bilirubin 12.1 H (0.2-1.3) mg/dL AST 182 H (14-36) U/L ALT 77 H (9-52) U/L Alkaline Phosphatase 164 H (38-126) U/L Ammonia 60 H D (9-33) umol/L Total Protein 6.9 (6.3-8.3) g/dL Albumin 3.5 (3.5-5.0) g/dL Globulin 3.4 (2.2-3.9) gm/dL Albumin/Globulin Ratio 1.0 (1.0-2.1) Pleural Total Protein <3.0 (()) g/dL Pleural LDH (()) U/L Pleural Glucose 129 (()) mg/dL Pleural Cholesterol 53 (()) mg/dL Blood Type O POSITIVE Antibody Screen Negative 10/16/16 Range/Units 15:27 WBC (4.8-10.8) K/uL RBC (3.80-5.20) Mil/uL Hgb (11.0-16.0) g/dL Hct (34.0-47.0) % MCV (81.0-99.0) fL MCH (27.0-31.0) pg MCHC (33.0-37.0) g/dL RDW (11.5-14.5) % Plt Count (130-400) K/uL MPV (7.2-11.7) fL Neut % (Auto) (50.0-75.0) % Lymph % (Auto) (20.0-40.0) % Coles % (Auto) (0.0-10.0) % Eos % (Auto) (0.0-4.0) % Baso % (Auto) (0.0-2.0) % Neut # (1.8-7.0) K/uL Lymph # (1.0-4.3) K/uL Coles # (0.0-0.8) K/uL Eos # (0.0-0.7) K/uL Baso # (0.0-0.2) K/uL Neutrophils % (Manual) (50-75) % Band Neutrophils % (0-2) % Lymphocytes % (Manual) (20-40) % Monocytes % (Manual) (0-10) % Metamyelocytes % (0-0) % Platelet Estimate (NORMAL) Plt Clumps, EDTA Large Platelets Polychromasia Hypochromasia (manual) Poikilocytosis (manual Anisocytosis (manual) Macrocytosis (manual) Target Cells Tear Drop Cells Sodium (132-148) mmol/L Potassium (3.6-5.2) mmol/L Chloride (98-107) mmol/L Carbon Dioxide (22-30) mmol/L Anion Gap (10-20) BUN (7-17) mg/dL Creatinine (0.7-1.2) MG/DL Est GFR ( Amer) Est GFR (Non-Af Amer) Random Glucose (65-105) mg/dL Calcium (8.6-10.4) mg/dl Phosphorus (2.5-4.5) mg/dL Magnesium (1.6-2.3) mg/dL Total Bilirubin (0.2-1.3) mg/dL AST (14-36) U/L ALT (9-52) U/L Alkaline Phosphatase (38-126) U/L Ammonia (9-33) umol/L Total Protein (6.3-8.3) g/dL Albumin (3.5-5.0) g/dL Globulin (2.2-3.9) gm/dL Albumin/Globulin Ratio (1.0-2.1) Pleural Total Protein (()) g/dL Pleural LDH 61 (()) U/L Pleural Glucose (()) mg/dL Pleural Cholesterol (()) mg/dL Blood Type Antibody Screen Laboratory Results - last 24 hr 10/16/16 10/16/16 10/18/16 15:27 15:28 11:28 WBC RBC Hgb Hct MCV MCH MCHC RDW Plt Count MPV Neut % (Auto) Lymph % (Auto) Coles % (Auto) Eos % (Auto) Baso % (Auto) Neut # Lymph # Coles # Eos # Baso # Neutrophils % (Manual) Band Neutrophils % Lymphocytes % (Manual) Monocytes % (Manual) Metamyelocytes % Platelet Estimate Plt Clumps, EDTA Large Platelets Polychromasia Hypochromasia (manual) Poikilocytosis (manual Anisocytosis (manual) Macrocytosis (manual) Target Cells Tear Drop Cells Sodium Potassium Chloride Carbon Dioxide Anion Gap BUN Creatinine Est GFR ( Amer) Est GFR (Non-Af Amer) Random Glucose Calcium Phosphorus Magnesium Total Bilirubin AST ALT Alkaline Phosphatase Ammonia Total Protein Albumin Globulin Albumin/Globulin Ratio Pleural Total Protein <3.0 Pleural LDH 61 Pleural Glucose 129 Pleural Cholesterol 53 Blood Type O POSITIVE Antibody Screen Negative 10/19/16 06:30 WBC 53.9 H* RBC 2.28 L Hgb 7.6 L Hct 25.1 L MCV 110.3 H MCH 33.3 H MCHC 30.2 L RDW 18.5 H Plt Count 325 MPV 9.9 Neut % (Auto) 92.2 H Lymph % (Auto) 3.7 L Coles % (Auto) 2.8 Eos % (Auto) 0.2 Baso % (Auto) 1.1 Neut # 49.8 H Lymph # 2.0 Coles # 1.5 H Eos # 0.1 Baso # 0.6 H Neutrophils % (Manual) 70 Band Neutrophils % 19 H* Lymphocytes % (Manual) 5 L Monocytes % (Manual) 5 Metamyelocytes % 1 H Platelet Estimate Normal Plt Clumps, EDTA Present Large Platelets Present Polychromasia Slight Hypochromasia (manual) Slight Poikilocytosis (manual Slight Anisocytosis (manual) Slight Macrocytosis (manual) Slight Target Cells Slight Tear Drop Cells Slight Sodium 138 Potassium 3.7 Chloride 93 L Carbon Dioxide 30 Anion Gap 19 BUN 12 Creatinine 0.6 L Est GFR ( Amer) > 60 Est GFR (Non-Af Amer) > 60 Random Glucose 96 Calcium 8.6 Phosphorus 3.3 Magnesium 1.9 Total Bilirubin 12.1 H AST 182 H ALT 77 H Alkaline Phosphatase 164 H Ammonia 60 H D Total Protein 6.9 Albumin 3.5 Globulin 3.4 Albumin/Globulin Ratio 1.0 Pleural Total Protein Pleural LDH Pleural Glucose Pleural Cholesterol Blood Type Antibody Screen Fingerstick Blood Sugar Results: 166 Review of Systems - Constitutional Constitutional: absent: Fever, Chills, Sweats, Weakness - EENT Eyes: absent: Change in Vision, Pain Nose/Mouth/Throat: absent: Dysphagia - Cardiovascular Cardiovascular: Leg Edema (2+ pitting), Pedal Edema. absent: Chest Pain, Chest Pain at Rest, Dyspnea, Dyspnea on Exertion, Lightheadedness - Respiratory Respiratory: absent: Cough, Dyspnea - Gastrointestinal Gastrointestinal: Diarrhea (frequent, water diarrhea due to lactulose). absent : Abdominal Pain, Nausea, Vomiting - Genitourinary Genitourinary: absent: Dysuria - Musculoskeletal Musculoskeletal: Back Pain, Neck Pain ('history of herniated discs'), Tingling. absent: Numbness - Integumentary Integumentary: Jaundice. absent: Rash - Neurological Neurological: Tingling ('electric feeling fown spine'). absent: Dizziness, Numbness, Weakness - Psychiatric Psychiatric: Anxiety (increasing from yesterday) Critical Care Progress Note - Nutrition Nutrition: Nutrition Category Date Time Status Altered GI/Hepatic Diet [DIET] Diets 10/13/16 Lunch Active Assessment/Plan - Assessment and Plan (Free Text) Assessment: 31 F with PMHx of Anxiety, asthma, HTN, and alcoholic hepatitis with decompensated liver failure, presents following seizure. No ascites for drainage. Persistent leukocytosis, but now downtrending. Pleural effusion drained by IR on 10/16. Day 4 of Primaxin, Avelox. Plan: Neuro: AAOx3 Seizure D/O - Gabapentin 300mg PO BID Hepatic Encephalopathy on presentation - Ammonia 60, improved from 78 yesterday - mentating without difficulty History of Anxiety - Detox for anxiety/xanax in October of 2015 Psych consult: Dr. Smith, help appreciated - f/u reccs Cardio: Tachycardic (Persistently in 120's), Normotensive, Afebrile Hypokalemia, resolved - Kdur 20mg PO daily Pulm: O2 saturation: 98% on Room Air Asthma - Pulmicort Respules 0.5mg Q12H substituted for home Advair - Duonebs Q6H [facility] A/P (10/15/16): RLL consolidation and pleural effusion. Mild left lung atelectasis. 6mm left lower lobe pulm nodule (should have repeat CT in 3-12 months based on malignancy risk). (see full report) CXR (10/16/16): moderate to large rt pleural effusion with consolidative changes in rt mid-lower lung zone. Venous congestion. Upper lobe granulomatous changes. Scattered nodularity in upper lung zones. Cardiomegaly. (see full report) CT Chest (10/16/16): Moderate to large right pleural effusion. Complete consolidation of right lower lobe and partial collapse/consolidation of of right middle lobe. Ground glass opacities. Cardiomegaly. (see full report) IR thoracentesis (10/17/16) - 500cc removed - Cytology studies: Transudative effusion, elevated neutrophils and lymphocytes Sputum culture (10/14/16): Klebsiella pneumoniae - Continued Maxipime 1gm Q12H IV (day four) - Continued Avelox 400mg IV Daily (day four) GI: Abdominal pain - Morphine 2mg IV Q12H Bedside Ultrasound (10/13/16) - No ascitic fluid appreciated, therefore no paracentesis at this time CT A/P (10/15/16): RLL consolidation and pleural effusion. Mild left lung atelectasis. 6mm left lower lobe pulm nodule (should have repeat CT in 3-12 months based on malignancy risk). Small hiatal hernia w GERD. Hepatosplenomegaly. Hepatic steatosis. GB contracted limiting evaluation, suspect wall thickening, questionable presence of debris/gallstones. Small abdominal/pelvic ascites. Soft tissue edema. (see full report) Hyperammonemia on admission - Ammonia level: 60 from 78 yesterday - Lactulose increased to Q6H - Spirinolactone 50mg Daily - Rifaximin 550mg PO BID - Lasix 20mg IV daily Elevated LFTs: - secondary to alcoholic hepatitis w. decompensated liver failure - AST/ALT/ALK PHOS/T bili: markedly elevated, but downtrending and stable MELD Score: 21; 20 on prior admission in August GI/hepatic diet /Renal: BUN/Cr WNL Monitor I/Os Hem: Anemia of chronic disease - Hgb 7.6; stable this AM; c/w prior admissions - Type and screen ordered Coagulopathy (elevated INR) on admission - secondary to liver failure - PT/INR/PTT (10/15/16): 16/.10/28 ID: CODE [email or web address] (10/13/16) Criteria on admission: Leukocytosis 60.5, Tachycardic, Tachypnic - WBC downtrending; 53.9 today, left shift w. [address] Velazquez, ID consult: help appreciated - maintain current antibiotic course Sputum Cx (10/14/16): Klebsiella Pneumoniae - Continue Maxipime 1 gm IV Daily (Day four) - Continue Avelox 400mg IV Daily (Day four) Cdiff (10/13/16): negative Blood cx (10/13/16): no growth for 5 days x 2 Urine cx (10/13/16): no growth MRSA screen (10/13/16): not detected Prednisone 20mg PO Daily Rifaximin 550mg PO BID Hx of Benzo/Alcohol Abuse - UDS negative MSKLTL: Bilateral leg swelling, bedridden for one week - Venous dopplers b/l (10/13/16): negative Back/Neck pain - Pt reports history of 'herniated discs' - Lidoderm patch PT/OT eval Prophylaxis: DVT: SCDs VTE: Heparin 5000 units q12h GI: Protonix IV daily Pt stable, for transfer to MED/SURG FLOOR D/w Dr. Jyoti De PGY-1 <Delroy Montes - Last Filed: 10/19/16 17:58> CCU Objective - Vital Signs / Intake & Output Vital Signs (Last 4 hours): Vital Signs Temp 10/19/16 16:10 99.1 F Intake and Output (Last 8hrs): Intake & Output 10/19/16 10/19/16 10/19/16 06:59 14:59 22:59 Intake Total 720 Output Total 400 Balance 320 Weight 217 lb Intake: Oral 720 Output: Urine/Stool Mix 400 Other: # Voids Urine, Voided 1 # Bowel Movements 1 - Medications Active Medications: Active Medications Generic Name Dose Route Start Last Admin Trade Name Freq PRN Reason Stop Dose Admin Albuterol/Ipratropium 3 ml 10/14/16 14:00 10/19/16 13:32 Duoneb 3 Mg/0.5 Mg (3 Ml) Ud INH 3 ml RQ6 DAKSHA Administration Budesonide 0.5 mg 10/13/16 20:00 10/19/16 08:27 Pulmicort Respules INH 0.5 mg RQ12 DAKSHA Administration Furosemide 20 mg 10/15/16 10:00 10/19/16 11:08 Lasix IVP 20 mg DAILY DAKSHA Administration Gabapentin 300 mg 10/19/16 18:00 Neurontin PO TID DAKSHA Heparin Sodium (Porcine) 5,000 units 10/18/16 10:00 10/19/16 11:07 Heparin SC 5,000 units Q12H DAKSHA Administration Cefepime HCl 50 mls @ 100 mls/hr 10/16/16 10:45 10/19/16 11:09 Maxipime Iv 1 Gm Premix IVPB 100 mls/hr Q12H DAKSHA Administration Moxifloxacin HCl 250 mls @ 167 mls/hr 10/16/16 11:30 10/19/16 11:20 Avelox Iv 400mg/250ml Ns IVPB 167 mls/hr Q24H DAKSHA Administration Lactulose 30 gm 10/18/16 08:00 10/19/16 11:06 Enulose PO 30 gm Q6 DAKSHA Administration Lidocaine 2 ea 10/19/16 12:00 10/19/16 15:46 Lidoderm TD 2 ea DAILY DAKSHA Administration Lorazepam 1 mg 10/19/16 14:30 10/19/16 16:20 Ativan PO 10/22/16 14:29 Not Given Q8H DAKSHA Taper Morphine Sulfate 2 mg 10/16/16 10:45 10/19/16 14:25 Morphine IV 2 mg Q6 PRN Administration Pain, moderate (4-7) Pantoprazole Sodium 40 mg 10/19/16 10:00 10/19/16 11:07 Protonix Inj IVP 40 mg DAILY DAKSHA Administration Potassium Chloride 20 meq 10/14/16 10:15 10/19/16 11:10 K-Dur 20 Meq Er Tab PO 20 meq DAILY DAKSHA Administration Prednisone 20 mg 10/15/16 09:38 10/19/16 11:07 Prednisone Tab PO 20 mg DAILY DAKSHA Administration Rifaximin 550 mg 10/13/16 10:45 10/19/16 11:07 Xifaxan PO 550 mg BID DAKSHA Administration Spironolactone 50 mg 10/13/16 13:27 10/19/16 11:10 Aldactone PO 50 mg DAILY DAKSHA Administration - Patient Studies Lab Studies: Lab Studies 10/19/16 10/16/16 Range/Units 06:30 15:28 WBC 53.9 H* (4.8-10.8) K/uL RBC 2.28 L (3.80-5.20) Mil/uL Hgb 7.6 L (11.0-16.0) g/dL Hct 25.1 L (34.0-47.0) % MCV 110.3 H (81.0-99.0) fL MCH 33.3 H (27.0-31.0) pg MCHC 30.2 L (33.0-37.0) g/dL RDW 18.5 H (11.5-14.5) % Plt Count 325 (130-400) K/uL MPV 9.9 (7.2-11.7) fL Neut % (Auto) 92.2 H (50.0-75.0) % Lymph % (Auto) 3.7 L (20.0-40.0) % Coles % (Auto) 2.8 (0.0-10.0) % Eos % (Auto) 0.2 (0.0-4.0) % Baso % (Auto) 1.1 (0.0-2.0) % Neut # 49.8 H (1.8-7.0) K/uL Lymph # 2.0 (1.0-4.3) K/uL Coles # 1.5 H (0.0-0.8) K/uL Eos # 0.1 (0.0-0.7) K/uL Baso # 0.6 H (0.0-0.2) K/uL Neutrophils % (Manual) 70 (50-75) % Band Neutrophils % 19 H* (0-2) % Lymphocytes % (Manual) 5 L (20-40) % Monocytes % (Manual) 5 (0-10) % Metamyelocytes % 1 H (0-0) % Platelet Estimate Normal (NORMAL) Plt Clumps, EDTA Present Large Platelets Present Polychromasia Slight Hypochromasia (manual) Slight Poikilocytosis (manual Slight Anisocytosis (manual) Slight Macrocytosis (manual) Slight Target Cells Slight Tear Drop Cells Slight Sodium 138 (132-148) mmol/L Potassium 3.7 (3.6-5.2) mmol/L Chloride 93 L (98-107) mmol/L Carbon Dioxide 30 (22-30) mmol/L Anion Gap 19 (10-20) BUN 12 (7-17) mg/dL Creatinine 0.6 L (0.7-1.2) MG/DL Est GFR ( Amer) > 60 Est GFR (Non-Af Amer) > 60 Random Glucose 96 (65-105) mg/dL Calcium 8.6 (8.6-10.4) mg/dl Phosphorus 3.3 (2.5-4.5) mg/dL Magnesium 1.9 (1.6-2.3) mg/dL Total Bilirubin 12.1 H (0.2-1.3) mg/dL AST 182 H (14-36) U/L ALT 77 H (9-52) U/L Alkaline Phosphatase 164 H (38-126) U/L Ammonia 60 H D (9-33) umol/L Total Protein 6.9 (6.3-8.3) g/dL Albumin 3.5 (3.5-5.0) g/dL Globulin 3.4 (2.2-3.9) gm/dL Albumin/Globulin Ratio 1.0 (1.0-2.1) Fluid Albumin 1.6 (()) g/dL Laboratory Results - last 24 hr 10/16/16 10/19/16 15:28 06:30 WBC 53.9 H* RBC 2.28 L Hgb 7.6 L Hct 25.1 L MCV 110.3 H MCH 33.3 H MCHC 30.2 L RDW 18.5 H Plt Count 325 MPV 9.9 Neut % (Auto) 92.2 H Lymph % (Auto) 3.7 L Coles % (Auto) 2.8 Eos % (Auto) 0.2 Baso % (Auto) 1.1 Neut # 49.8 H Lymph # 2.0 Coles # 1.5 H Eos # 0.1 Baso # 0.6 H Neutrophils % (Manual) 70 Band Neutrophils % 19 H* Lymphocytes % (Manual) 5 L Monocytes % (Manual) 5 Metamyelocytes % 1 H Platelet Estimate Normal Plt Clumps, EDTA Present Large Platelets Present Polychromasia Slight Hypochromasia (manual) Slight Poikilocytosis (manual Slight Anisocytosis (manual) Slight Macrocytosis (manual) Slight Target Cells Slight Tear Drop Cells Slight Sodium 138 Potassium 3.7 Chloride 93 L Carbon Dioxide 30 Anion Gap 19 BUN 12 Creatinine 0.6 L Est GFR ( Amer) > 60 Est GFR (Non-Af Amer) > 60 Random Glucose 96 Calcium 8.6 Phosphorus 3.3 Magnesium 1.9 Total Bilirubin 12.1 H AST 182 H ALT 77 H Alkaline Phosphatase 164 H Ammonia 60 H D Total Protein 6.9 Albumin 3.5 Globulin 3.4 Albumin/Globulin Ratio 1.0 Fluid Albumin 1.6 Critical Care Progress Note - Nutrition Nutrition: Nutrition Category Date Time Status Altered GI/Hepatic Diet [DIET] Diets 10/13/16 Lunch Active Attending/Attestation - Attestation I have personally seen and examined this patient.: Yes I have fully participated in the care of the patient.: Yes I have reviewed all pertinent clinical information: Yes Notes (Text): 10/19/16 Today: , October 19, 2016 The Patient was seen and examined at the bedside, Medical records reviewed, all clinical/lab/hemodynamic/radiographic data were reviewed and management issues were discussed and formulated, Events reviewed Pain issues, skin care, head of the bed elevation, glycemic control were addressed. Agree with above treatment plans as transcribed in Dr. De note
[2016-10-19] MEDS: Cefepime IV 1 gm in Dextrose 50 ML IVPB SCH ×2 (11:09→22:06)
[2016-10-19] MEDS: Potassium Chloride 20 mEq ER Tab PO SCH (11:10)
[2016-10-19] MEDS: Moxifloxacin IV 400mg/250ml NS 250 ML IVPB SCH (11:20)
--- NOTE | 2016-10-19 11:46 | PN ---
DATE: 10/19/2016 The patient is feeling better. Complains of anxiety. Give supportive care and a psych evaluation. Transfer to medical floor. Fara Quintero MD cc: [id number] TT: 10/19/2016 10:46:03 Confirmation # [id number] Dictation # [id number]
[2016-10-19] MEDS ORDERED: Sodium Chloride 0.9% 1,000 ML IV SCH (13:30)
[2016-10-19] MEDS: Lidocaine 5% Patch TD SCH (15:46)
--- NOTE | 2016-10-19 16:25 | PCM.PSYCH ---
Initial Psychiatric Evaluation - Initial Psychiatric Evaluation Type of Admission: Voluntary Legal Status: Capacity Chief Complaint (in patient's own words): "I get seizures when I stop my xanax. History of Present Illness and Precipitating Events: Pt is a 31 yo F who is single with one 11yo daughter, lives with her sister and is employed. Pt was admitted 10/13 following a seizure and psychiatric consultation was requested for evaluation of benzodiazepine use disorder and withdrawal. Pt states she's been taking 0.5 mg of Xanax three times per day for anxiety for the past 3-4 years. States she has shakes and seizures when she runs out of her Xanax, which is reportedly what occurred prior to admission. Pt also has a history of alcohol use disorder. She began drinking at 12 years old. States she has not used alcohol for several months now. She used to drink 2 pints of alcohol daily. History of one previous detox and no rehab. Denies all other substances including cocaine, heroin, cannabis, stimulants and nicotine. Pt complains of anxiety. Pt denies depressed mood, suicidal ideation, homicidal ideation, visual and auditory hallucinations. Psych Hx: Anxiety, PTSD (but does not exhibit symptoms). No psych admissions. One prior detox. Family Psych Hx: One brother had psychosis, other alcohol cocaine and heroine dependence, 1 sister used marijuana, father was an alcoholic and was "abusive." PMHx: HTN, alcoholic hepatitis with decompensated liver failure, seizure disorder, asthma Current Medications: Active Medications Generic Name Dose Route Start Last Admin Trade Name Freq PRN Reason Stop Dose Admin Albuterol/Ipratropium 3 ml 10/14/16 14:00 10/19/16 13:32 Duoneb 3 Mg/0.5 Mg (3 Ml) Ud INH 3 ml RQ6 DAKSHA Administration Budesonide 0.5 mg 10/13/16 20:00 10/19/16 08:27 Pulmicort Respules INH 0.5 mg RQ12 DAKSHA Administration Furosemide 20 mg 10/15/16 10:00 10/19/16 11:08 Lasix IVP 20 mg DAILY DAKSHA Administration Gabapentin 300 mg 10/19/16 18:00 Neurontin PO TID DAKSHA Heparin Sodium (Porcine) 5,000 units 10/18/16 10:00 10/19/16 11:07 Heparin SC 5,000 units Q12H DAKSHA Administration Cefepime HCl 50 mls @ 100 mls/hr 10/16/16 10:45 10/19/16 11:09 Maxipime Iv 1 Gm Premix IVPB 100 mls/hr Q12H DAKSHA Administration Moxifloxacin HCl 250 mls @ 167 mls/hr 10/16/16 11:30 10/19/16 11:20 Avelox Iv 400mg/250ml Ns IVPB 167 mls/hr Q24H DAKSHA Administration Lactulose 30 gm 10/18/16 08:00 10/19/16 11:06 Enulose PO 30 gm Q6 DAKSHA Administration Lidocaine 2 ea 10/19/16 12:00 10/19/16 15:46 Lidoderm TD 2 ea DAILY DAKSHA Administration Lorazepam 1 mg 10/19/16 14:30 10/19/16 16:20 Ativan PO 10/22/16 14:29 Not Given Q8H DAKSHA Taper Morphine Sulfate 2 mg 10/16/16 10:45 10/19/16 14:25 Morphine IV 2 mg Q6 PRN Administration Pain, moderate (4-7) Pantoprazole Sodium 40 mg 10/19/16 10:00 10/19/16 11:07 Protonix Inj IVP 40 mg DAILY DAKSHA Administration Potassium Chloride 20 meq 10/14/16 10:15 10/19/16 11:10 K-Dur 20 Meq Er Tab PO 20 meq DAILY DAKSHA Administration Prednisone 20 mg 10/15/16 09:38 10/19/16 11:07 Prednisone Tab PO 20 mg DAILY DAKSHA Administration Rifaximin 550 mg 10/13/16 10:45 10/19/16 11:07 Xifaxan PO 550 mg BID DAKSHA Administration Spironolactone 50 mg 10/13/16 13:27 10/19/16 11:10 Aldactone PO 50 mg DAILY DAKSHA Administration Past Psychiatric History - Past Psychiatric History Pertinent Medical Hx (Current Medical&Sleep Prob, Allergies): Allergies Allergy/AdvReac Type Severity Reaction Status Date / Time No Known Allergies Allergy Verified 10/13/16 04:36 Albuterol HFA [Ventolin HFA 90 mcg/actuation (8 g)] 1 puff IH DAILY 11/09/15 Fluticasone Nasal [Flonase] 1 spr NS DAILY 10/13/16 Furosemide [Lasix] 40 mg PO DAILY 10/13/16 Gabapentin [Neurontin] 2 cap PO HS 10/13/16 Lactulose 30 ml PO TID 10/13/16 NIFEdipine ER [Procardia XL] 30 mg PO DAILY 10/13/16 Phosphorus #1 [Virt-Phos 250 Neutral Tablet] 250 mg PO QID 10/13/16 predniSONE [predniSONE Tab] 40 mg PO DAILY 10/13/16 Review of Systems - Neurological Neurological: Convulsions, Tremor - Psychiatric Psychiatric: Anxiety. absent: Auditory Hallucinations, Depression, Homicidal Ideation, Paranoia, Suicidal Ideation, Visual Hallucinations Mental Status Examination - Personal Presentation Personal Presentation: Looks stated age - Affect Affect: Constricted - Motor Activity Motor Activity: Calm - Reliability in Providing Information Reliability in Providing Information: Fair - Speech Speech: Organized - Mood Mood: Anxious - Formal Thought Process Formal Thought Process: No Impairment - Obsessions/Compulsions Obsessions: No Compulsions: No - Cognitive Functions Orientation: Person, Place, Situation, Time Sensorium: Alert Attention/Concentration: Attentive Judgement: Imparied, as evidence by: Lack of insight into illness Memory: Recent intact, as evidence by: Ability to recall events of the day, Remote intact, as evidenced by: Abilit to recall sig. life events - Risk Risk: Seizure, Withdrawal - Strength & Assets Inventory Strength & Assets Inventory: Employment status DSM 5 DX - DSM 5 DSM 5 Diagnosis: Anxiety disorder-unspecified benzodiazepine use disorder-moderate to severe alcohol use disorder-in remission - Recommended/Plan of Treatment Treatment Recommendations and Plan of Treatment: Anxiety: -Gabapentin 300mg PO TID -CBT and supportive therapy Benzodiazepines: -Ativan taper -As needed meds -OR, CBT -refer to program Alcohol: -OR for abstinence 30minutes
--- NOTE | 2016-10-19 23:26 | CP.PCM.PN ---
Subjective - Date & Time of Evaluation Date of Evaluation: 10/19/16 Time of Evaluation: 17:15 - Subjective Subjective: patient seen and evaluated Consulted for Tachycardia Will Check ECHO 31 YOF with who was recently diagnosed with alcohol hepatitis with decompensated liver failure, brought to ER my mother as pt had a one minute episode of seizure, what she described pt had mild tremors of the body and was very lethargic. No fever, no incontinence, pt was awake. Pt is not a good historian , she is awake and responsive. BP is stable. She has been admitted to [facility] in [place] recently, just discharged recently. Has edema, abdominal distention and is deeply jaundiced. Review of Systems - Review of Systems Systems not reviewed;Unavailable: Unstable Vital Signs, Altered Mental Status, Uncooperative - Constitutional Constitutional: Anorexia, Lethargy, Malaise - Cardiovascular Cardiovascular: As Per HPI - Respiratory Respiratory: As Per HPI - Gastrointestinal Gastrointestinal: Abdominal Pain, Diarrhea, Excessive Flatus - Genitourinary Genitourinary: As Per HPI Physical Exam - Constitutional Appears: In Acute Distress - Head Exam Head Exam: ATRAUMATIC - Eye Exam Eye Exam: Scleral icterus Pupil Exam: PERRL - Neck Exam Neck exam: Positive for: Full Rom - Respiratory Exam Respiratory Exam: NORMAL BREATHING PATTERN - Cardiovascular Exam Cardiovascular Exam: REGULAR RHYTHM - GI/Abdominal Exam GI & Abdominal Exam: Distended, Hypoactive Bowel Sounds - Neurological Exam Neurological exam: Alert Objective - Vital Signs/Intake and Output Vital Signs (last 24 hours): Temp Pulse Resp BP Pulse Ox 98.6 F 126 H 22 133/69 97 10/19/16 22:00 10/19/16 10:00 10/19/16 10:00 10/19/16 22:00 10/18/16 16:00 Intake and Output: 10/19/16 10/20/16 18:59 06:59 Intake Total 280 250 Output Total 600 400 Balance -320 -150 - Medications Medications: Current Medications Albuterol/Ipratropium (Duoneb 3 Mg/0.5 Mg (3 Ml) Ud) 3 ml INH RQ6 DAKSHA Last Admin: 10/19/16 20:15 Dose: 3 ml Budesonide (Pulmicort Respules) 0.5 mg INH RQ12 DAKSHA Last Admin: 10/19/16 20:15 Dose: 0.5 mg Furosemide (Lasix) 20 mg IVP DAILY [facility] Last Admin: 10/19/16 11:08 Dose: 20 mg Gabapentin (Neurontin) 300 mg PO TID [facility] Last Admin: 10/19/16 18:58 Dose: 300 mg Heparin Sodium (Porcine) (Heparin) 5,000 units SC Q12H [facility] Last Admin: 10/19/16 22:06 Dose: 5,000 units Cefepime HCl (Maxipime Iv 1 Gm Premix) 50 mls @ 100 mls/hr IVPB Q12H [facility] Last Admin: 10/19/16 22:06 Dose: 100 mls/hr Moxifloxacin HCl (Avelox Iv 400mg/250ml Ns) 250 mls @ 167 mls/hr IVPB Q24H [facility] Last Admin: 10/19/16 11:20 Dose: 167 mls/hr Lactulose (Enulose) 30 gm PO Q6 [facility] Last Admin: 10/19/16 18:58 Dose: 30 gm Lidocaine (Lidoderm) 2 ea TD DAILY [facility] Last Admin: 10/19/16 15:46 Dose: 2 ea Lorazepam (Ativan) 1 mg PO Q8H [facility] PRN Reason: Taper Stop: 10/22/16 14:29 Last Admin: 10/19/16 22:05 Dose: 1 mg Morphine Sulfate (Morphine) 2 mg IV Q6 PRN PRN Reason: Pain, moderate (4-7) Last Admin: 10/19/16 20:30 Dose: 2 mg Pantoprazole Sodium (Protonix Inj) 40 mg IVP DAILY [facility] Last Admin: 10/19/16 11:07 Dose: 40 mg Potassium Chloride (K-Dur 20 Meq Er Tab) 20 meq PO DAILY [facility] Last Admin: 10/19/16 11:10 Dose: 20 meq Prednisone (Prednisone Tab) 20 mg PO DAILY [facility] Last Admin: 10/19/16 11:07 Dose: 20 mg Rifaximin (Xifaxan) 550 mg PO BID [facility] Last Admin: 10/19/16 18:57 Dose: 550 mg Spironolactone (Aldactone) 50 mg PO DAILY [facility] Last Admin: 10/19/16 11:10 Dose: 50 mg - Labs Labs: 10/19/16 06:30 10/19/16 06:30 PT 16.0 SECONDS (9.7-12.2) H 10/15/16 06:52 INR 1.4 10/15/16 06:52 APTT 29 SECONDS (21-34) 10/15/16 06:52 Assessment and Plan - Assessment and Plan (Free Text) Assessment: 31 F with PMHx of Anxiety, asthma, HTN, and alcoholic hepatitis with decompensated liver failure, presents following seizure. No ascites for drainage. Persistent leukocytosis, but now downtrending. Pleural effusion drained by IR on 10/16. Day 4 of Primaxin, Avelox. Plan: Neuro: AAOx3 Seizure D/O - Gabapentin 300mg PO BID Hepatic Encephalopathy on presentation - Ammonia 60, improved from 78 yesterday - mentating without difficulty History of Anxiety - Detox for anxiety/xanax in October of 2015 Psych consult: Dr. Smith, help appreciated - f/u reccs Cardio: Tachycardia likely metobolic Tachycardic (Persistently in 120's), Normotensive, Afebrile Hypokalemia, resolved - Kdur 20mg PO daily Pulm: O2 saturation: 98% on Room Air Asthma - Pulmicort Respules 0.5mg Q12H substituted for home Advair - Duonebs Q6H DAKSHA CT A/P (10/15/16): RLL consolidation and pleural effusion. Mild left lung atelectasis. 6mm left lower lobe pulm nodule (should have repeat CT in 3-12 months based on malignancy risk). (see full report) CXR (10/16/16): moderate to large rt pleural effusion with consolidative changes in rt mid-lower lung zone. Venous congestion. Upper lobe granulomatous changes. Scattered nodularity in upper lung zones. Cardiomegaly. (see full report) CT Chest (10/16/16): Moderate to large right pleural effusion. Complete consolidation of right lower lobe and partial collapse/consolidation of of right middle lobe. Ground glass opacities. Cardiomegaly. (see full report) IR thoracentesis (10/17/16) - 500cc removed - Cytology studies: Transudative effusion, elevated neutrophils and lymphocytes Sputum culture (10/14/16): Klebsiella pneumoniae - Continued Maxipime 1gm Q12H IV (day four) - Continued Avelox 400mg IV Daily (day four) GI: Abdominal pain - Morphine 2mg IV Q12H Bedside Ultrasound (10/13/16) - No ascitic fluid appreciated, therefore no paracentesis at this time CT A/P (10/15/16): RLL consolidation and pleural effusion. Mild left lung atelectasis. 6mm left lower lobe pulm nodule (should have repeat CT in 3-12 months based on malignancy risk). Small hiatal hernia w GERD. Hepatosplenomegaly. Hepatic steatosis. GB contracted limiting evaluation, suspect wall thickening, questionable presence of debris/gallstones. Small abdominal/pelvic ascites. Soft tissue edema. (see full report) Hyperammonemia on admission - Ammonia level: 60 from 78 yesterday - Lactulose increased to Q6H - Spirinolactone 50mg Daily - Rifaximin 550mg PO BID - Lasix 20mg IV daily Elevated LFTs: - secondary to alcoholic hepatitis w. decompensated liver failure - AST/ALT/ALK PHOS/T bili: markedly elevated, but downtrending and stable MELD Score: 21; 20 on prior admission in August GI/hepatic diet /Renal: BUN/Cr WNL Monitor I/Os Hem: Anemia of chronic disease - Hgb 7.6; stable this AM; c/w prior admissions - Type and screen ordered Coagulopathy (elevated INR) on admission - secondary to liver failure - PT/INR/PTT (10/15/16): 16/.10/28 ID: CODE SEPSIS (10/13/16) Criteria on admission: Leukocytosis 60.5, Tachycardic, Tachypnic - WBC downtrending; 53.9 today, left shift w. [address] Velazquez, ID consult: help appreciated - maintain current antibiotic course Sputum Cx (10/14/16): Klebsiella Pneumoniae - Continue Maxipime 1 gm IV Daily (Day four) - Continue Avelox 400mg IV Daily (Day four) Cdiff (10/13/16): negative Blood cx (10/13/16): no growth for 5 days x 2 Urine cx (10/13/16): no growth MRSA screen (10/13/16): not detected Prednisone 20mg PO Daily Rifaximin 550mg PO BID Hx of Benzo/Alcohol Abuse - UDS negative MSKLTL: Bilateral leg swelling, bedridden for one week - Venous dopplers b/l (10/13/16): negative Back/Neck pain - Pt reports history of 'herniated discs' - Lidoderm patch PT/OT eval Prophylaxis: DVT: SCDs VTE: Heparin 5000 units q12h GI: Protonix IV daily
[2016-10-20] MEDS: Albuterol-Ipratrop 3 mg / 0.5 (3 ml) UD INH SCH ×4 (01:21→20:06)
[2016-10-20] MEDS: Morphine 4 MG/ML VIAL IV PRN ×4 (04:04→22:50)
[2016-10-20 06:07] LABS: BASO # 0.4 K/uL (0.0-0.2); BASO % 0.7 % (0.0-2.0); EOS # 0.1 K/uL (0.0-0.7); EOS % 0.2 % (0.0-4.0); LYMPH # 1.2 K/uL (1.0-4.3); LYMPH % 2.3 % (20.0-40.0); MEAN CELL VOLUME 112.2 fL (81.0-99.0); MEAN CORPUSCULAR HEMOGLOBIN 34.2 pg (27.0-31.0); MEAN CORPUSCULAR HGB CONC 30.4 g/dL (33.0-37.0); MEAN PLATELET VOLUME 10.4 fL (7.2-11.7); MONO # 2.2 K/uL (0.0-0.8); MONO % 4.4 % (0.0-10.0); PLATELET COUNT 298 K/uL (130-400); RED CELL DISTRIBUTION WIDTH 18.7 % (11.5-14.5)
[2016-10-20 06:19] LABS: WHITE BLOOD COUNT 50.3 K/uL (4.8-10.8)
[2016-10-20 06:25] LABS: CHLORIDE 92 mmol/L (98-107); SODIUM 138 mmol/L (132-148)
[2016-10-20 06:26] LABS: POTASSIUM 3.3 mmol/L (3.6-5.2)
[2016-10-20 06:28] LABS: ALKALINE PHOSPHATASE 180 U/L (38-126); ALT/SGPT 80 U/L (9-52); AST/SGOT 161 U/L (14-36); BILIRUBIN,TOTAL 12.3 mg/dL (0.2-1.3); BLOOD UREA NITROGEN 12 mg/dL (7-17); CARBON DIOXIDE 31 mmol/L (22-30); GFR AFRICAN-AMERICAN > 60; GLUCOSE,RANDOM 84 mg/dL (65-105); PHOSPHOROUS 3.5 mg/dL (2.5-4.5); TOTAL PROTEIN 7.1 g/dL (6.3-8.3)
[2016-10-20 06:29] LABS: CALCIUM 8.5 mg/dl (8.6-10.4); MAGNESIUM 1.9 mg/dL (1.6-2.3)
[2016-10-20] MEDS: Budesonide 0.5 mg/2 ml Inhal Susp UD INH SCH ×2 (08:12→20:07)
[2016-10-20 08:39] LABS: NEUTROPHIL 82 % (50-75); NUCLEATED RED BLOOD CELL 1 % (0-0); TOTAL CELLS COUNTED 100
[2016-10-20 08:40] LABS: LARGE PLATELETS PRESENT
[2016-10-20] MEDS: Potassium Chloride 20 mEq ER Tab PO SCH (10:45)
[2016-10-20] MEDS: Cefepime IV 1 gm in Dextrose 50 ML IVPB SCH ×2 (10:46→21:53)
--- NOTE | 2016-10-20 10:46 | CP.PCM.PN ---
Subjective - Date & Time of Evaluation Date of Evaluation: 10/20/16 Time of Evaluation: 09:00 - Subjective Subjective: Medicine Progress Note- Dr. Becerril's Service: Patient seen and examined at bedside this AM. Patient complaining of back pain that comes and goes. She denies palpitations, chest pain, SOB this AM. No acute events overnight as per nursing. Objective - Vital Signs/Intake and Output Vital Signs (last 24 hours): Temp Pulse Resp BP Pulse Ox 99.0 F 126 H 22 133/69 97 10/20/16 08:00 10/20/16 08:00 10/19/16 10:00 10/19/16 22:00 10/18/16 16:00 Intake and Output: 10/20/16 10/20/16 06:59 18:59 Intake Total 370 50 Output Total 400 500 Balance -30 -450 - Medications Medications: Current Medications Albuterol/Ipratropium (Duoneb 3 Mg/0.5 Mg (3 Ml) Ud) 3 ml INH RQ6 DAKSHA Last Admin: 10/20/16 08:12 Dose: 3 ml Budesonide (Pulmicort Respules) 0.5 mg INH RQ12 DAKSHA Last Admin: 10/20/16 08:12 Dose: 0.5 mg Furosemide (Lasix) 20 mg IVP DAILY DAKSHA Last Admin: 10/19/16 11:08 Dose: 20 mg Gabapentin (Neurontin) 300 mg PO TID DAKSHA Last Admin: 10/19/16 18:58 Dose: 300 mg Heparin Sodium (Porcine) (Heparin) 5,000 units SC Q12H DAKSHA Last Admin: 10/19/16 22:06 Dose: 5,000 units Cefepime HCl (Maxipime Iv 1 Gm Premix) 50 mls @ 100 mls/hr IVPB Q12H DAKSHA Last Admin: 10/19/16 22:06 Dose: 100 mls/hr Moxifloxacin HCl (Avelox Iv 400mg/250ml Ns) 250 mls @ 167 mls/hr IVPB Q24H DAKSHA Last Admin: 10/19/16 11:20 Dose: 167 mls/hr Lactulose (Enulose) 30 gm PO Q6 DAKSHA Last Admin: 10/20/16 06:23 Dose: 30 gm Lidocaine (Lidoderm) 2 ea TD DAILY DAKSHA Last Admin: 10/19/16 15:46 Dose: 2 ea Lorazepam (Ativan) 1 mg PO Q8H DAKSHA PRN Reason: Taper Stop: 10/22/16 14:29 Last Admin: 10/20/16 06:23 Dose: 1 mg Morphine Sulfate (Morphine) 2 mg IV Q6 PRN PRN Reason: Pain, moderate (4-7) Last Admin: 10/20/16 04:04 Dose: 2 mg Pantoprazole Sodium (Protonix Inj) 40 mg IVP DAILY [facility] Last Admin: 10/19/16 11:07 Dose: 40 mg Potassium Chloride (K-Dur 20 Meq Er Tab) 20 meq PO DAILY [facility] Last Admin: 10/19/16 11:10 Dose: 20 meq Prednisone (Prednisone Tab) 20 mg PO DAILY [facility] Last Admin: 10/19/16 11:07 Dose: 20 mg Rifaximin (Xifaxan) 550 mg PO BID [facility] Last Admin: 10/19/16 18:57 Dose: 550 mg Spironolactone (Aldactone) 50 mg PO DAILY [facility] Last Admin: 10/19/16 11:10 Dose: 50 mg - Labs Labs: 10/20/16 06:00 10/20/16 06:05 PT 16.0 SECONDS (9.7-12.2) H 10/15/16 06:52 INR 1.4 10/15/16 06:52 APTT 29 SECONDS (21-34) 10/15/16 06:52 - Constitutional Appears: No Acute Distress - Head Exam Head Exam: NORMAL INSPECTION, NORMOCEPHALIC - Eye Exam Eye Exam: EOMI, Normal appearance - ENT Exam ENT Exam: Mucous Membranes Moist - Neck Exam Neck Exam: Full ROM - Respiratory Exam Respiratory Exam: Clear to Ausculation Bilateral, NORMAL BREATHING PATTERN - Cardiovascular Exam Cardiovascular Exam: REGULAR RHYTHM - GI/Abdominal Exam GI & Abdominal Exam: Soft. absent: Distended, Tenderness - Extremities Exam Extremities Exam: Full ROM, Normal Inspection - Back Exam Back Exam: NORMAL INSPECTION. absent: Full ROM - Neurological Exam Neurological Exam: Alert, Awake, Oriented x3 - Psychiatric Exam Psychiatric exam: Flat Affect - Skin Skin Exam: Dry, Normal Color, Warm Assessment and Plan (1) Leukocytosis Assessment & Plan: CODE SEPSIS (10/13/16) Criteria on admission: Leukocytosis 60.5, Tachycardic, Tachypnic WBC downtrending; 50.3 today, left shift w. [address] Velazquez, ID consult: help appreciated - maintain current antibiotic course Sputum Cx (10/14/16): Klebsiella Pneumoniae - Continue Maxipime 1 gm IV Daily - DAY 5 - Continue Avelox 400mg IV Daily - DAY 5 - Continue Prednisone 20mg PO Daily - Continue Rifaximin 550mg PO BID Cdiff (10/13/16): negative Blood cx (10/13/16): no growth for 5 days x 2 Urine cx (10/13/16): no growth MRSA screen (10/13/16): not detected Status: Acute (2) Pleural effusion Assessment & Plan: IR thoracentesis (10/17/16) - 500cc removed - Cytology studies: Transudative effusion, elevated neutrophils and lymphocytes Sputum culture (10/14/16): Klebsiella pneumoniae - Continued Maxipime 1gm Q12H IV - Continued Avelox 400mg IV Daily CT A/P (10/15/16): RLL consolidation and pleural effusion. Mild left lung atelectasis. 6mm left lower lobe pulm nodule (should have repeat CT in 3-12 months based on malignancy risk). (see full report) CXR (10/16/16): moderate to large rt pleural effusion with consolidative changes in rt mid-lower lung zone. Venous congestion. Upper lobe granulomatous changes. Scattered nodularity in upper lung zones. Cardiomegaly. (see full report) CT Chest (10/16/16): Moderate to large right pleural effusion. Complete consolidation of right lower lobe and partial collapse/consolidation of of right middle lobe. Ground glass opacities. Cardiomegaly. (see full report) Status: Acute (3) Seizure Assessment & Plan: Hepatic Encephalopathy on presentation - Ammonia today 60, improved from 78 day before - Mentating without difficulty Continue Gabapentin 300mg PO BID Status: Acute (4) Liver failure Assessment & Plan: Secondary to alcoholic hepatitis w. decompensated liver failure Hyperammonemia on admission- Ammonia level: 62 from 60 yesterday - Lactulose 30g to Q6H - Spirinolactone 50mg Daily - Rifaximin 550mg PO BID - Lasix 20mg IV daily Status: Chronic (5) Alcohol dependence Assessment & Plan: Hx of Benzo/Alcohol Abuse - UDS negative Status: Chronic (6) Asthma Assessment & Plan: O2 saturation: 98% on Room Air - Pulmicort Respules 0.5mg Q12H substituted for home Advair - Duonebs Q6H DAKSHA Status: Chronic (7) Anxiety Assessment & Plan: Detox for anxiety/xanax in October of 2015 Psych consult: Dr. Smith, help appreciated -Ativan taper -Gabapentin 300mg PO TID -CBT and supportive therapy Status: Chronic (8) Back pain Assessment & Plan: Pt reports history of 'herniated discs' Lidoderm patch PT/OT eval Status: Chronic (9) Prophylactic measure Assessment & Plan: DVT: SCDs VTE: Heparin 5000 units q12h GI: Protonix IV daily Status: Acute - Assessment and Plan (Free Text) Assessment: Management as per Dr. Becerril
[2016-10-20] MEDS: Moxifloxacin IV 400mg/250ml NS 250 ML IVPB SCH (10:47)
[2016-10-20] MEDS: Lidocaine 5% Patch TD SCH ×2 (10:51→11:59)
--- NOTE | 2016-10-20 18:11 | CP.PCM.PN ---
Subjective - Date & Time of Evaluation Date of Evaluation: 10/20/16 Time of Evaluation: 08:00 - Subjective Subjective: marked leukocytosis persists blood c/s negative on steroids and functionally asplenic await heme eval cont iv antibiotics for pneumonia Objective - Vital Signs/Intake and Output Vital Signs (last 24 hours): Temp Pulse Resp BP Pulse Ox 99.0 F 117 H 22 141/75 97 10/20/16 08:00 10/20/16 16:59 10/19/16 10:00 10/20/16 14:00 10/18/16 16:00 Intake and Output: 10/20/16 10/20/16 06:59 18:59 Intake Total 370 700 Output Total 400 1350 Balance -30 -650 - Medications Medications: Current Medications Albuterol/Ipratropium (Duoneb 3 Mg/0.5 Mg (3 Ml) Ud) 3 ml INH RQ6 [facility]AK[facility] Last Admin: 10/20/16 13:34 Dose: 3 ml Budesonide (Pulmicort Respules) 0.5 mg INH RQ12 [facility] Last Admin: 10/20/16 08:12 Dose: 0.5 mg Furosemide (Lasix) 20 mg IVP DAILY [facility] Last Admin: 10/20/16 10:43 Dose: 20 mg Gabapentin (Neurontin) 300 mg PO TID [facility] Last Admin: 10/20/16 17:27 Dose: 300 mg Heparin Sodium (Porcine) (Heparin) 5,000 units SC Q12H [facility] Last Admin: 10/20/16 10:45 Dose: 5,000 units Cefepime HCl (Maxipime Iv 1 Gm Premix) 50 mls @ 100 mls/hr IVPB Q12H [facility] Last Admin: 10/20/16 10:46 Dose: 100 mls/hr Moxifloxacin HCl (Avelox Iv 400mg/250ml Ns) 250 mls @ 167 mls/hr IVPB Q24H [facility] Last Admin: 10/20/16 10:47 Dose: 167 mls/hr Lactulose (Enulose) 30 gm PO Q6 [facility] Last Admin: 10/20/16 17:27 Dose: 30 gm Lidocaine (Lidoderm) 2 ea TD DAILY [facility] Last Admin: 10/20/16 11:59 Dose: Not Given Lorazepam (Ativan) 1 mg PO Q12H [facility] PRN Reason: Taper Stop: 10/22/16 14:29 Last Admin: 10/20/16 14:54 Dose: 1 mg Morphine Sulfate (Morphine) 2 mg IV Q6 PRN PRN Reason: Pain, moderate (4-7) Last Admin: 10/20/16 16:45 Dose: 2 mg Pantoprazole Sodium (Protonix Inj) 40 mg IVP DAILY [facility] Last Admin: 10/20/16 10:43 Dose: 40 mg Potassium Chloride (K-Dur 20 Meq Er Tab) 20 meq PO DAILY [facility] Last Admin: 10/20/16 10:45 Dose: 20 meq Prednisone (Prednisone Tab) 20 mg PO DAILY [facility] Last Admin: 10/20/16 10:45 Dose: 20 mg Rifaximin (Xifaxan) 550 mg PO BID [facility] Last Admin: 10/20/16 10:55 Dose: 550 mg Spironolactone (Aldactone) 50 mg PO DAILY [facility] Last Admin: 10/20/16 10:45 Dose: 50 mg - Labs Labs: 10/20/16 06:00 10/20/16 06:05 PT 16.0 SECONDS (9.7-12.2) H 10/15/16 06:52 INR 1.4 10/15/16 06:52 APTT 29 SECONDS (21-34) 10/15/16 06:52 - Constitutional Appears: Non-toxic, Chronically Ill - Head Exam Head Exam: NORMOCEPHALIC - Eye Exam Eye Exam: Scleral icterus - ENT Exam ENT Exam: Mucous Membranes Dry - Neck Exam Neck Exam: absent: Lymphadenopathy - Respiratory Exam Respiratory Exam: Decreased Breath Sounds, Rhonchi - Cardiovascular Exam Cardiovascular Exam: REGULAR RHYTHM, +S1, +S2 - GI/Abdominal Exam GI & Abdominal Exam: Distended, Soft. absent: Tenderness Assessment and Plan (1) Hepatic encephalopathy Status: Acute (2) Liver failure Status: Chronic (3) Seizure Status: Acute (4) Sepsis Status: Acute
--- NOTE | 2016-10-20 22:57 | CP.PCM.PN ---
Subjective - Date & Time of Evaluation Date of Evaluation: 10/20/16 Time of Evaluation: 16:25 - Subjective Subjective: Patient's HR under control No cardiac events Objective - Vital Signs/Intake and Output Vital Signs (last 24 hours): Temp Pulse Resp BP Pulse Ox 99.0 F 126 H 22 133/69 97 10/20/16 08:00 10/20/16 08:00 10/19/16 10:00 10/19/16 22:00 10/18/16 16:00 Intake and Output: 10/20/16 10/20/16 06:59 18:59 Intake Total 370 50 Output Total 400 500 Balance -30 -450 - Medications Medications: Current Medications Albuterol/Ipratropium (Duoneb 3 Mg/0.5 Mg (3 Ml) Ud) 3 ml INH RQ6 [facility] Last Admin: 10/20/16 08:12 Dose: 3 ml Budesonide (Pulmicort Respules) 0.5 mg INH RQ12 [facility] Last Admin: 10/20/16 08:12 Dose: 0.5 mg Furosemide (Lasix) 20 mg IVP DAILY [facility] Last Admin: 10/19/16 11:08 Dose: 20 mg Gabapentin (Neurontin) 300 mg PO TID [facility] Last Admin: 10/19/16 18:58 Dose: 300 mg Heparin Sodium (Porcine) (Heparin) 5,000 units SC Q12H [facility] Last Admin: 10/19/16 22:06 Dose: 5,000 units Cefepime HCl (Maxipime Iv 1 Gm Premix) 50 mls @ 100 mls/hr IVPB Q12H [facility] Last Admin: 10/19/16 22:06 Dose: 100 mls/hr Moxifloxacin HCl (Avelox Iv 400mg/250ml Ns) 250 mls @ 167 mls/hr IVPB Q24H [facility] Last Admin: 10/19/16 11:20 Dose: 167 mls/hr Lactulose (Enulose) 30 gm PO Q6 [facility] Last Admin: 10/20/16 06:23 Dose: 30 gm Lidocaine (Lidoderm) 2 ea TD DAILY [facility] Last Admin: 10/19/16 15:46 Dose: 2 ea Lorazepam (Ativan) 1 mg PO Q8H [facility] PRN Reason: Taper Stop: 10/22/16 14:29 Last Admin: 10/20/16 06:23 Dose: 1 mg Morphine Sulfate (Morphine) 2 mg IV Q6 PRN PRN Reason: Pain, moderate (4-7) Last Admin: 10/20/16 04:04 Dose: 2 mg Pantoprazole Sodium (Protonix Inj) 40 mg IVP DAILY [facility] Last Admin: 10/19/16 11:07 Dose: 40 mg Potassium Chloride (K-Dur 20 Meq Er Tab) 20 meq PO DAILY [facility] Last Admin: 10/19/16 11:10 Dose: 20 meq Prednisone (Prednisone Tab) 20 mg PO DAILY [facility] Last Admin: 10/19/16 11:07 Dose: 20 mg Rifaximin (Xifaxan) 550 mg PO BID [facility] Last Admin: 10/19/16 18:57 Dose: 550 mg Spironolactone (Aldactone) 50 mg PO DAILY [facility] Last Admin: 10/19/16 11:10 Dose: 50 mg - Labs Labs: 10/20/16 06:00 10/20/16 06:05 PT 16.0 SECONDS (9.7-12.2) H 10/15/16 06:52 INR 1.4 10/15/16 06:52 APTT 29 SECONDS (21-34) 10/15/16 06:52 - Constitutional Appears: No Acute Distress - Head Exam Head Exam: NORMAL INSPECTION, NORMOCEPHALIC - Eye Exam Eye Exam: EOMI, Normal appearance - ENT Exam ENT Exam: Mucous Membranes Moist - Neck Exam Neck Exam: Full ROM - Respiratory Exam Respiratory Exam: Clear to Ausculation Bilateral, NORMAL BREATHING PATTERN - Cardiovascular Exam Cardiovascular Exam: REGULAR RHYTHM - GI/Abdominal Exam GI & Abdominal Exam: Soft. absent: Distended, Tenderness - Extremities Exam Extremities Exam: Full ROM, Normal Inspection - Back Exam Back Exam: NORMAL INSPECTION. absent: Full ROM - Neurological Exam Neurological Exam: Alert, Awake, Oriented x3 - Psychiatric Exam Psychiatric exam: Flat Affect - Skin Skin Exam: Dry, Normal Color, Warm Objective - Vital Signs/Intake and Output Vital Signs (last 24 hours): Temp Pulse Resp BP Pulse Ox 99.0 F 117 H 22 141/75 97 10/20/16 08:00 10/20/16 16:59 10/19/16 10:00 10/20/16 14:00 10/18/16 16:00 Intake and Output: 10/20/16 10/21/16 18:59 06:59 Intake Total 700 Output Total 1350 Balance -650 - Medications Medications: Current Medications Albuterol/Ipratropium (Duoneb 3 Mg/0.5 Mg (3 Ml) Ud) 3 ml INH RQ6 [facility] Last Admin: 10/20/16 20:06 Dose: 3 ml Budesonide (Pulmicort Respules) 0.5 mg INH RQ12 [facility] Last Admin: 10/20/16 20:07 Dose: Not Given Furosemide (Lasix) 20 mg IVP DAILY [facility] Last Admin: 10/20/16 10:43 Dose: 20 mg Gabapentin (Neurontin) 300 mg PO TID [facility] Last Admin: 10/20/16 17:27 Dose: 300 mg Heparin Sodium (Porcine) (Heparin) 5,000 units SC Q12H [facility] Last Admin: 10/20/16 21:50 Dose: 5,000 units Cefepime HCl (Maxipime Iv 1 Gm Premix) 50 mls @ 100 mls/hr IVPB Q12H [facility] Last Admin: 10/20/16 21:53 Dose: 100 mls/hr Moxifloxacin HCl (Avelox Iv 400mg/250ml Ns) 250 mls @ 167 mls/hr IVPB Q24H [facility] Last Admin: 10/20/16 10:47 Dose: 167 mls/hr Lactulose (Enulose) 30 gm PO Q6 [facility] Last Admin: 10/20/16 17:27 Dose: 30 gm Lidocaine (Lidoderm) 2 ea TD DAILY [facility] Last Admin: 10/20/16 11:59 Dose: Not Given Lorazepam (Ativan) 1 mg PO Q12H [facility] PRN Reason: Taper Stop: 10/22/16 14:29 Last Admin: 10/20/16 14:54 Dose: 1 mg Morphine Sulfate (Morphine) 2 mg IV Q6 PRN PRN Reason: Pain, moderate (4-7) Last Admin: 10/20/16 16:45 Dose: 2 mg Pantoprazole Sodium (Protonix Inj) 40 mg IVP DAILY [facility] Last Admin: 10/20/16 10:43 Dose: 40 mg Potassium Chloride (K-Dur 20 Meq Er Tab) 20 meq PO DAILY [facility] Last Admin: 10/20/16 10:45 Dose: 20 meq Prednisone (Prednisone Tab) 20 mg PO DAILY [facility] Last Admin: 10/20/16 10:45 Dose: 20 mg Rifaximin (Xifaxan) 550 mg PO BID [facility] Last Admin: 10/20/16 18:00 Dose: 550 mg Spironolactone (Aldactone) 50 mg PO DAILY [facility] Last Admin: 10/20/16 10:45 Dose: 50 mg - Labs Labs: 10/20/16 06:00 10/20/16 06:05 PT 16.0 SECONDS (9.7-12.2) H 10/15/16 06:52 INR 1.4 10/15/16 06:52 APTT 29 SECONDS (21-34) 10/15/16 06:52 Assessment and Plan - Assessment and Plan (Free Text) Assessment: (1) Leukocytosis Assessment & Plan: CODE SEPSIS (10/13/16) Criteria on admission: Leukocytosis 60.5, Tachycardic, Tachypnic WBC downtrending; 50.3 today, left shift w. [address] Velazquez, ID consult: help appreciated - maintain current antibiotic course Sputum Cx (10/14/16): Klebsiella Pneumoniae - Continue Maxipime 1 gm IV Daily - DAY 5 - Continue Avelox 400mg IV Daily - DAY 5 - Continue Prednisone 20mg PO Daily - Continue Rifaximin 550mg PO BID Cdiff (10/13/16): negative Blood cx (10/13/16): no growth for 5 days x 2 Urine cx (10/13/16): no growth MRSA screen (10/13/16): not detected Status: Acute (2) Pleural effusion Assessment & Plan: IR thoracentesis (10/17/16) - 500cc removed - Cytology studies: Transudative effusion, elevated neutrophils and lymphocytes Sputum culture (10/14/16): Klebsiella pneumoniae - Continued Maxipime 1gm Q12H IV - Continued Avelox 400mg IV Daily CT A/P (10/15/16): RLL consolidation and pleural effusion. Mild left lung atelectasis. 6mm left lower lobe pulm nodule (should have repeat CT in 3-12 months based on malignancy risk). (see full report) CXR (10/16/16): moderate to large rt pleural effusion with consolidative changes in rt mid-lower lung zone. Venous congestion. Upper lobe granulomatous changes. Scattered nodularity in upper lung zones. Cardiomegaly. (see full report) CT Chest (10/16/16): Moderate to large right pleural effusion. Complete consolidation of right lower lobe and partial collapse/consolidation of of right middle lobe. Ground glass opacities. Cardiomegaly. (see full report) Status: Acute (3) Seizure Assessment & Plan: Hepatic Encephalopathy on presentation - Ammonia today 60, improved from 78 day before - Mentating without difficulty Continue Gabapentin 300mg PO BID Status: Acute (4) Liver failure Assessment & Plan: Secondary to alcoholic hepatitis w. decompensated liver failure Hyperammonemia on admission- Ammonia level: 62 from 60 yesterday - Lactulose 30g to Q6H - Spirinolactone 50mg Daily - Rifaximin 550mg PO BID - Lasix 20mg IV daily Status: Chronic (5) Alcohol dependence Assessment & Plan: Hx of Benzo/Alcohol Abuse - UDS negative Status: Chronic (6) Asthma Assessment & Plan: O2 saturation: 98% on Room Air - Pulmicort Respules 0.5mg Q12H substituted for home Advair - Duonebs Q6H DAKSHA Status: Chronic (7) Anxiety Assessment & Plan: Detox for anxiety/xanax in October of 2015 Psych consult: Dr. Smith, help appreciated -Ativan taper -Gabapentin 300mg PO TID -CBT and supportive therapy Status: Chronic (8) Back pain Assessment & Plan: Pt reports history of 'herniated discs' Lidoderm patch PT/OT eval Status: Chronic (9) Prophylactic measure Assessment & Plan: DVT: SCDs VTE: Heparin 5000 units q12h GI: Protonix IV daily Tachycardia resolving. Likely metobolic. ECHO WNL
[2016-10-21] MEDS: Albuterol-Ipratrop 3 mg / 0.5 (3 ml) UD INH SCH ×4 (01:35→19:03)
[2016-10-21] MEDS: Morphine 4 MG/ML VIAL IV PRN ×3 (04:50→19:17)
[2016-10-21] MEDS: Budesonide 0.5 mg/2 ml Inhal Susp UD INH SCH ×2 (07:30→19:03)
[2016-10-21 08:01] LABS: BASO # 0.4 K/uL (0.0-0.2); BASO % 0.7 % (0.0-2.0); EOS # 0.2 K/uL (0.0-0.7); EOS % 0.5 % (0.0-4.0); HEMATOCRIT 25.2 % (34.0-47.0); LYMPH # 2.5 K/uL (1.0-4.3); LYMPH % 5.2 % (20.0-40.0); MEAN CELL VOLUME 110.3 fL (81.0-99.0); MEAN CORPUSCULAR HEMOGLOBIN 33.1 pg (27.0-31.0); MEAN PLATELET VOLUME 9.9 fL (7.2-11.7); MONO # 1.3 K/uL (0.0-0.8); MONO % 2.6 % (0.0-10.0); PLATELET COUNT 293 K/uL (130-400); RED CELL DISTRIBUTION WIDTH 18.9 % (11.5-14.5)
[2016-10-21 08:12] LABS: WHITE BLOOD COUNT 48.3 K/uL (4.8-10.8)
[2016-10-21 08:19] LABS: CHLORIDE 95 mmol/L (98-107); POTASSIUM 3.6 mmol/L (3.6-5.2); SODIUM 138 mmol/L (132-148)
[2016-10-21 08:21] LABS: AST/SGOT 157 U/L (14-36); BILIRUBIN,TOTAL 11.2 mg/dL (0.2-1.3); CARBON DIOXIDE 25 mmol/L (22-30); GFR AFRICAN-AMERICAN > 60
[2016-10-21 08:22] LABS: ALKALINE PHOSPHATASE 176 U/L (38-126); ALT/SGPT 70 U/L (9-52); BLOOD UREA NITROGEN 11 mg/dL (7-17); GLUCOSE,RANDOM 118 mg/dL (65-105); PHOSPHOROUS 3.1 mg/dL (2.5-4.5); TOTAL PROTEIN 6.9 g/dL (6.3-8.3)
[2016-10-21 08:23] LABS: CALCIUM 8.5 mg/dl (8.6-10.4); MAGNESIUM 1.9 mg/dL (1.6-2.3)
[2016-10-21 09:15] LABS: NEUTROPHIL 86 % (50-75); TOTAL CELLS COUNTED 100
[2016-10-21 09:18] LABS: LARGE PLATELETS PRESENT; STOMATOCYTES SLIGHT
[2016-10-21] MEDS: Potassium Chloride 20 mEq ER Tab PO SCH (09:35)
[2016-10-21] MEDS: Lidocaine 5% Patch TD SCH (09:36)
[2016-10-21] MEDS: Cefepime IV 1 gm in Dextrose 50 ML IVPB SCH (10:50)
[2016-10-21] MEDS: Moxifloxacin IV 400mg/250ml NS 250 ML IVPB SCH (11:13)
[2016-10-22] MEDS: Morphine 4 MG/ML VIAL IV PRN ×4 (01:20→20:19)
[2016-10-22] MEDS: Albuterol-Ipratrop 3 mg / 0.5 (3 ml) UD INH SCH ×3 (02:19→14:01)
[2016-10-22] MEDS: Budesonide 0.5 mg/2 ml Inhal Susp UD INH SCH (07:58)
[2016-10-22 08:16] LABS: CHLORIDE 94 mmol/L (98-107)
[2016-10-22 08:17] LABS: POTASSIUM 3.9 mmol/L (3.6-5.2); SODIUM 136 mmol/L (132-148)
[2016-10-22 08:18] LABS: GFR AFRICAN-AMERICAN > 60
[2016-10-22 08:19] LABS: ALKALINE PHOSPHATASE 172 U/L (38-126); ALT/SGPT 77 U/L (9-52); AST/SGOT 144 U/L (14-36); BASO # 0.5 K/uL (0.0-0.2); BILIRUBIN,TOTAL 10.7 mg/dL (0.2-1.3); BLOOD UREA NITROGEN 11 mg/dL (7-17); CARBON DIOXIDE 26 mmol/L (22-30); EOS # 0.2 K/uL (0.0-0.7); EOS % 0.5 % (0.0-4.0); HEMATOCRIT 24.4 % (34.0-47.0); LYMPH # 1.6 K/uL (1.0-4.3); LYMPH % 3.5 % (20.0-40.0); MEAN CELL VOLUME 109.4 fL (81.0-99.0); MEAN CORPUSCULAR HEMOGLOBIN 34.4 pg (27.0-31.0); MEAN CORPUSCULAR HGB CONC 31.5 g/dL (33.0-37.0); MEAN PLATELET VOLUME 9.8 fL (7.2-11.7); MONO # 1.6 K/uL (0.0-0.8); MONO % 3.5 % (0.0-10.0); PLATELET COUNT 322 K/uL (130-400); RED CELL DISTRIBUTION WIDTH 18.2 % (11.5-14.5)
[2016-10-22 08:20] LABS: CALCIUM 8.5 mg/dl (8.6-10.4); GLUCOSE,RANDOM 121 mg/dL (65-105); MAGNESIUM 1.9 mg/dL (1.6-2.3); PHOSPHOROUS 2.5 mg/dL (2.5-4.5)
[2016-10-22 10:54] LABS: NEUTROPHIL 79 % (50-75); REACTIVE LYMPHOCYTES 2 % (0-0); TOTAL CELLS COUNTED 100
[2016-10-22 10:55] LABS: LARGE PLATELETS PRESENT
[2016-10-22 10:57] LABS: GIANT PLATELETS PRESENT; STOMATOCYTES SLIGHT
[2016-10-22] MEDS: Potassium Chloride 20 mEq ER Tab PO SCH (11:12)
[2016-10-22] MEDS: Lidocaine 5% Patch TD SCH (11:13)
[2016-10-22] MEDS: Moxifloxacin IV 400mg/250ml NS 250 ML IVPB SCH (11:14)
--- NOTE | 2016-10-22 15:36 | CP.PCM.PN ---
Subjective - Date & Time of Evaluation Date of Evaluation: 10/22/16 Time of Evaluation: 06:00 - Subjective Subjective: iv rx in progress still with bandemia poor prognosis Objective - Vital Signs/Intake and Output Vital Signs (last 24 hours): Temp Pulse Resp BP Pulse Ox 98.2 F 128 H 20 98/66 L 95 10/22/16 08:16 10/22/16 08:16 10/22/16 08:16 10/22/16 08:16 10/22/16 08:16 Intake and Output: 10/22/16 10/22/16 06:59 18:59 Intake Total 900 Balance 900 - Medications Medications: Current Medications Albuterol/Ipratropium (Duoneb 3 Mg/0.5 Mg (3 Ml) Ud) 3 ml INH RQ6 [facility] Last Admin: 10/22/16 14:01 Dose: 3 ml Budesonide (Pulmicort Respules) 0.5 mg INH RQ12 [facility] Last Admin: 10/22/16 07:58 Dose: 0.5 mg Furosemide (Lasix) 20 mg IVP DAILY [facility] Last Admin: 10/22/16 11:13 Dose: Not Given Gabapentin (Neurontin) 300 mg PO TID [facility] Last Admin: 10/22/16 14:12 Dose: 300 mg Moxifloxacin HCl (Avelox Iv 400mg/250ml Ns) 250 mls @ 167 mls/hr IVPB Q24H [facility] Last Admin: 10/22/16 11:14 Dose: 167 mls/hr Lactulose (Enulose) 30 gm PO Q6 [facility] Last Admin: 10/22/16 14:14 Dose: 30 gm Lidocaine (Lidoderm) 2 ea TD DAILY [facility] Last Admin: 10/22/16 11:13 Dose: Not Given Morphine Sulfate (Morphine) 2 mg IV Q6 PRN PRN Reason: Pain, moderate (4-7) Last Admin: 10/22/16 14:12 Dose: 2 mg Pantoprazole Sodium (Protonix Inj) 40 mg IVP DAILY [facility] Last Admin: 10/22/16 11:12 Dose: 40 mg Potassium Chloride (K-Dur 20 Meq Er Tab) 20 meq PO DAILY [facility] Last Admin: 10/22/16 11:12 Dose: 20 meq Prednisone (Prednisone Tab) 20 mg PO DAILY [facility] Last Admin: 10/22/16 11:12 Dose: 20 mg Rifaximin (Xifaxan) 550 mg PO BID [facility] Last Admin: 10/22/16 11:12 Dose: 550 mg Spironolactone (Aldactone) 50 mg PO DAILY [facility] Last Admin: 10/22/16 11:13 Dose: Not Given - Labs Labs: 10/22/16 07:59 10/22/16 07:59 PT 16.0 SECONDS (9.7-12.2) H 10/15/16 06:52 INR 1.4 10/15/16 06:52 APTT 29 SECONDS (21-34) 10/15/16 06:52 - Constitutional Appears: Chronically Ill - Head Exam Head Exam: NORMOCEPHALIC - Eye Exam Eye Exam: Scleral icterus - Neck Exam Neck Exam: absent: Lymphadenopathy - Respiratory Exam Respiratory Exam: Decreased Breath Sounds, Rhonchi - Cardiovascular Exam Cardiovascular Exam: REGULAR RHYTHM, +S1, +S2 - GI/Abdominal Exam GI & Abdominal Exam: Distended, Soft. absent: Tenderness - Rectal Exam Rectal Exam: Deferred - Exam Exam: NORMAL INSPECTION - Extremities Exam Extremities Exam: absent: Calf Tenderness, Pedal Edema - Back Exam Back Exam: absent: CVA tenderness (L), CVA tenderness (R) - Neurological Exam Neurological Exam: Alert, Awake, Oriented x3 - Psychiatric Exam Psychiatric exam: Normal Mood - Skin Skin Exam: Dry Assessment and Plan (1) Hepatic encephalopathy Status: Acute (2) Liver failure Status: Chronic (3) Seizure Status: Acute (4) Sepsis Status: Acute
[2016-10-22] MEDS: guaiFENesin 600 mg ER Tab PO SCH (20:21)
[2016-10-23] MEDS: Albuterol-Ipratrop 3 mg / 0.5 (3 ml) UD INH SCH ×4 (02:12→19:14)
[2016-10-23] MEDS: Morphine 4 MG/ML VIAL IV PRN ×4 (02:40→22:20)
[2016-10-23 07:23] LABS: BASO # 0.6 K/uL (0.0-0.2); BASO % 1.2 % (0.0-2.0); EOS # 0.2 K/uL (0.0-0.7); EOS % 0.5 % (0.0-4.0); HEMATOCRIT 24.8 % (34.0-47.0); LYMPH # 2.1 K/uL (1.0-4.3); LYMPH % 4.5 % (20.0-40.0); MEAN CELL VOLUME 110.3 fL (81.0-99.0); MEAN CORPUSCULAR HEMOGLOBIN 33.4 pg (27.0-31.0); MEAN CORPUSCULAR HGB CONC 30.3 g/dL (33.0-37.0); MONO # 1.7 K/uL (0.0-0.8); MONO % 3.5 % (0.0-10.0); PLATELET COUNT 346 K/uL (130-400); RED CELL DISTRIBUTION WIDTH 18.7 % (11.5-14.5)
[2016-10-23 07:25] LABS: WHITE BLOOD COUNT 47.3 K/uL (4.8-10.8)
[2016-10-23] MEDS: Budesonide 0.5 mg/2 ml Inhal Susp UD INH SCH ×2 (07:40→19:14)
[2016-10-23 07:47] LABS: CHLORIDE 97 mmol/L (98-107); POTASSIUM 4.2 mmol/L (3.6-5.2); SODIUM 135 mmol/L (132-148)
[2016-10-23 07:49] LABS: GFR AFRICAN-AMERICAN > 60
[2016-10-23 07:50] LABS: ALB/GLOB RATIO 0.9 (1.0-2.1); ALKALINE PHOSPHATASE 187 U/L (38-126); ALT/SGPT 74 U/L (9-52); AST/SGOT 144 U/L (14-36); BILIRUBIN,TOTAL 10.2 mg/dL (0.2-1.3); BLOOD UREA NITROGEN 11 mg/dL (7-17); CARBON DIOXIDE 26 mmol/L (22-30); GLUCOSE,RANDOM 99 mg/dL (65-105); PHOSPHOROUS 2.5 mg/dL (2.5-4.5); TOTAL PROTEIN 6.9 g/dL (6.3-8.3)
[2016-10-23 07:51] LABS: CALCIUM 8.1 mg/dl (8.6-10.4)
[2016-10-23 08:28] LABS: NEUTROPHIL 79 % (50-75); TOTAL CELLS COUNTED 100
[2016-10-23 08:32] LABS: LARGE PLATELETS PRESENT
[2016-10-23] MEDS: guaiFENesin 600 mg ER Tab PO SCH ×2 (09:33→17:22)
[2016-10-23] MEDS: Potassium Chloride 20 mEq ER Tab PO SCH (09:33)
[2016-10-23] MEDS: Lidocaine 5% Patch TD SCH (09:44)
[2016-10-23] MEDS: Moxifloxacin IV 400mg/250ml NS 250 ML IVPB SCH (10:42)
--- NOTE | 2016-10-23 12:00 | CP.PCM.PN ---
Subjective - Date & Time of Evaluation Date of Evaluation: 10/23/16 Time of Evaluation: 06:00 - Subjective Subjective: wbc remains hi iv antibiotics in progress consider heme eval Objective - Vital Signs/Intake and Output Vital Signs (last 24 hours): Temp Pulse Resp BP Pulse Ox 99.2 F 119 H 20 133/78 95 10/23/16 08:01 10/23/16 08:01 10/23/16 08:01 10/23/16 09:37 10/23/16 08:01 Intake and Output: 10/23/16 10/23/16 06:59 18:59 Intake Total 410 Balance 410 - Medications Medications: Current Medications Albuterol/Ipratropium (Duoneb 3 Mg/0.5 Mg (3 Ml) Ud) 3 ml INH RQ6 [facility] Last Admin: 10/23/16 07:40 Dose: 3 ml Budesonide (Pulmicort Respules) 0.5 mg INH RQ12 [facility] Last Admin: 10/23/16 07:40 Dose: 0.5 mg Furosemide (Lasix) 20 mg IVP DAILY [facility] Last Admin: 10/23/16 09:37 Dose: 20 mg Gabapentin (Neurontin) 300 mg PO TID [facility] Last Admin: 10/23/16 09:33 Dose: 300 mg Guaifenesin (Mucinex La) 600 mg PO BID [facility] Last Admin: 10/23/16 09:33 Dose: 600 mg Moxifloxacin HCl (Avelox Iv 400mg/250ml Ns) 250 mls @ 167 mls/hr IVPB Q24H [facility] Last Admin: 10/23/16 10:42 Dose: 167 mls/hr Lactulose (Enulose) 30 gm PO Q6 [facility] Last Admin: 10/23/16 06:53 Dose: 30 gm Lidocaine (Lidoderm) 2 ea TD DAILY [facility] Last Admin: 10/23/16 09:44 Dose: Not Given Lorazepam (Ativan) 0.5 mg PO TID PRN PRN Reason: Anxiety Morphine Sulfate (Morphine) 2 mg IV Q6 PRN PRN Reason: Pain, moderate (4-7) Last Admin: 10/23/16 10:39 Dose: 2 mg Pantoprazole Sodium (Protonix Inj) 40 mg IVP DAILY [facility] Last Admin: 10/23/16 09:36 Dose: 40 mg Potassium Chloride (K-Dur 20 Meq Er Tab) 20 meq PO DAILY [facility] Last Admin: 10/23/16 09:33 Dose: 20 meq Prednisone (Prednisone Tab) 20 mg PO DAILY [facility] Last Admin: 10/23/16 09:33 Dose: 20 mg Rifaximin (Xifaxan) 550 mg PO BID [facility] Last Admin: 10/23/16 09:38 Dose: 550 mg Spironolactone (Aldactone) 50 mg PO DAILY [facility] Last Admin: 10/23/16 09:37 Dose: 50 mg - Labs Labs: 10/23/16 07:10 10/23/16 07:10 PT 16.0 SECONDS (9.7-12.2) H 10/15/16 06:52 INR 1.4 10/15/16 06:52 APTT 29 SECONDS (21-34) 10/15/16 06:52 - Constitutional Appears: Non-toxic, Chronically Ill - Head Exam Head Exam: NORMOCEPHALIC - Eye Exam Eye Exam: absent: Scleral icterus - ENT Exam ENT Exam: Mucous Membranes Dry - Neck Exam Neck Exam: absent: Lymphadenopathy - Respiratory Exam Respiratory Exam: Decreased Breath Sounds, Rhonchi - Cardiovascular Exam Cardiovascular Exam: REGULAR RHYTHM, +S1, +S2 - GI/Abdominal Exam GI & Abdominal Exam: Distended, Soft - Rectal Exam Rectal Exam: Deferred Assessment and Plan (1) Hepatic encephalopathy Status: Acute (2) Liver failure Status: Chronic (3) Seizure Status: Acute (4) Sepsis Status: Acute
--- NOTE | 2016-10-23 12:41 | PCM.PYCHPN ---
Psychiatric Progress Note - Psychiatric Progress Note Patient seen today, length of contact: 16 min Patient Chief Complaint: "I can't sleep" Problems Identified/Issues Discussed: The patient is seen, chart reviewed and case discussed again. She was tremulous still, a little, but likely due to anxiety. Has minimal withdrawal symptoms otherwise. Her medical condition is not improving well. Feels down but not suicidal. She is worried about her liver and is not interested in taking too many medications. Her Ativan is restarted as when necessary schedule. Has significant insomnia and will give gabapentin (safer for liver) Support given. Medication Change: Yes (gabapentin HS) Medical Record Reviewed: Yes Mental Status Examination - Cognitive Function Orientation: Person, Place, Situation, Time Memory: Impaired Attention: Poor Concentration: Poor Association: WNL Fund of Knowledge: WNL - Mood Mood: Anxious - Affect Affect: Constricted - Speech Speech: Appropriate, Soft - Formal Thought Process Formal Thought Process: No Impairment - Suicidal Ideation Suicidal Ideation: No - Homicidal Ideation Homicidal Ideation: No Goal/Treatment Plan - Goal/Treatment Plan Need for Continued Stay: Severe functional impairment, Other (medical tx) Progress Toward Problem(s) and Goals/Treatment Plan: Anxiety: -Gabapentin 300mg PO TID + 400 HS -CBT and supportive therapy Benzodiazepines: -Ativan taper ended short, now prn -As needed meds -[place], CBT -refer to program Alcohol: -[place] for abstinence
--- NOTE | 2016-10-23 15:41 | CP.PCM.PN ---
Subjective - Date & Time of Evaluation Date of Evaluation: 10/23/16 Time of Evaluation: 09:45 - Subjective Subjective: PGY2 Medicine Note - Dr. Becerril's Service: Patient seen and examined at bedside this AM. Patient reports shakiness. Patient says she stopped drinking 9 years ago. Patient says her cousin is going to give her half of his liver. Patient is amenable to going to rehab. Objective - Vital Signs/Intake and Output Vital Signs (last 24 hours): Temp Pulse Resp BP Pulse Ox 99.2 F 119 H 20 133/78 95 10/23/16 08:01 10/23/16 08:01 10/23/16 08:01 10/23/16 09:37 10/23/16 08:01 Intake and Output: 10/23/16 10/23/16 06:59 18:59 Intake Total 410 650 Balance 410 650 - Medications Medications: Current Medications Albuterol/Ipratropium (Duoneb 3 Mg/0.5 Mg (3 Ml) Ud) 3 ml INH RQ6 [facility] Last Admin: 10/23/16 13:34 Dose: 3 ml Budesonide (Pulmicort Respules) 0.5 mg INH RQ12 [facility] Last Admin: 10/23/16 07:40 Dose: 0.5 mg Furosemide (Lasix) 20 mg IVP DAILY [facility] Last Admin: 10/23/16 09:37 Dose: 20 mg Gabapentin (Neurontin) 300 mg PO TID [facility] Last Admin: 10/23/16 14:15 Dose: 300 mg Gabapentin (Neurontin) 400 mg PO HS [facility] Guaifenesin (Mucinex La) 600 mg PO BID [facility] Last Admin: 10/23/16 09:33 Dose: 600 mg Moxifloxacin HCl (Avelox Iv 400mg/250ml Ns) 250 mls @ 167 mls/hr IVPB Q24H [facility] Last Admin: 10/23/16 10:42 Dose: 167 mls/hr Lactulose (Enulose) 30 gm PO Q6 [facility] Last Admin: 10/23/16 12:58 Dose: 30 gm Lidocaine (Lidoderm) 2 ea TD DAILY [facility] Last Admin: 10/23/16 09:44 Dose: Not Given Lorazepam (Ativan) 0.5 mg PO TID PRN PRN Reason: Anxiety Morphine Sulfate (Morphine) 2 mg IV Q6 PRN PRN Reason: Pain, moderate (4-7) Last Admin: 10/23/16 10:39 Dose: 2 mg Pantoprazole Sodium (Protonix Inj) 40 mg IVP DAILY [facility] Last Admin: 10/23/16 09:36 Dose: 40 mg Potassium Chloride (K-Dur 20 Meq Er Tab) 20 meq PO DAILY [facility] Last Admin: 10/23/16 09:33 Dose: 20 meq Prednisone (Prednisone Tab) 20 mg PO DAILY [facility] Last Admin: 10/23/16 09:33 Dose: 20 mg Rifaximin (Xifaxan) 550 mg PO BID [facility] Last Admin: 10/23/16 09:38 Dose: 550 mg Spironolactone (Aldactone) 50 mg PO DAILY [facility] Last Admin: 10/23/16 09:37 Dose: 50 mg - Labs Labs: 10/23/16 07:10 10/23/16 07:10 PT 16.0 SECONDS (9.7-12.2) H 10/15/16 06:52 INR 1.4 10/15/16 06:52 APTT 29 SECONDS (21-34) 10/15/16 06:52 - Constitutional Appears: No Acute Distress, Chronically Ill - Head Exam Head Exam: NORMAL INSPECTION - Eye Exam Eye Exam: EOMI, Scleral icterus - ENT Exam ENT Exam: Mucous Membranes Moist - Respiratory Exam Respiratory Exam: Clear to Ausculation Bilateral, NORMAL BREATHING PATTERN. absent: Rales, Rhonchi, Wheezes - Cardiovascular Exam Cardiovascular Exam: REGULAR RHYTHM, +S1, +S2. absent: Gallop, Rubs, Murmur - GI/Abdominal Exam GI & Abdominal Exam: Soft, Tenderness, Normal Bowel Sounds - Extremities Exam Extremities Exam: Pedal Edema - Neurological Exam Neurological Exam: Alert, Oriented x3 - Psychiatric Exam Psychiatric exam: Normal Affect, Normal Mood - Skin Additional comments: jaundiced Assessment and Plan - Assessment and Plan (Free Text) Assessment: (1) Leukocytosis Assessment & Plan: CODE SEPSIS (10/13/16) Criteria on admission: Leukocytosis 60.5, Tachycardic, Tachypnic WBC downtrending; 50.3 today, left shift w. [address] Velazquez, ID consult: help appreciated - maintain current antibiotic course Sputum Cx (10/14/16): Klebsiella Pneumoniae - Continue Maxipime 1 gm IV Daily - DAY 5 - Continue Avelox 400mg IV Daily - DAY 5 - Continue Prednisone 20mg PO Daily - Continue Rifaximin 550mg PO BID Cdiff (10/13/16): negative Blood cx (10/13/16): no growth for 5 days x 2 Urine cx (10/13/16): no growth MRSA screen (10/13/16): not detected Status: Acute (2) Pleural effusion Assessment & Plan: IR thoracentesis (10/17/16) - 500cc removed - Cytology studies: Transudative effusion, elevated neutrophils and lymphocytes Sputum culture (10/14/16): Klebsiella pneumoniae - Continued Maxipime 1gm Q12H IV - Continued Avelox 400mg IV Daily CT A/P (10/15/16): RLL consolidation and pleural effusion. Mild left lung atelectasis. 6mm left lower lobe pulm nodule (should have repeat CT in 3-12 months based on malignancy risk). (see full report) CXR (10/16/16): moderate to large rt pleural effusion with consolidative changes in rt mid-lower lung zone. Venous congestion. Upper lobe granulomatous changes. Scattered nodularity in upper lung zones. Cardiomegaly. (see full report) CT Chest (10/16/16): Moderate to large right pleural effusion. Complete consolidation of right lower lobe and partial collapse/consolidation of of right middle lobe. Ground glass opacities. Cardiomegaly. (see full report) Status: Acute (3) Seizure Assessment & Plan: Hepatic Encephalopathy on presentation - Ammonia today 60, improved from 78 day before - Mentating without difficulty Continue Gabapentin 300mg PO BID Ativan 0.5mg IVP PRN shakiness/anxiety Status: Acute (4) Liver failure Assessment & Plan: Secondary to alcoholic hepatitis w. decompensated liver failure Hyperammonemia on admission- Ammonia level: 62 from 60 yesterday - Lactulose 30g to Q6H - Spirinolactone 50mg Daily - Rifaximin 550mg PO BID - Lasix 20mg IV daily Status: Chronic (5) Alcohol dependence Assessment & Plan: Hx of Benzo/Alcohol Abuse - UDS negative Status: Chronic (6) Asthma Assessment & Plan: O2 saturation: 98% on Room Air - Pulmicort Respules 0.5mg Q12H substituted for home Advair - Duonebs Q6H [facility] Status: Chronic (7) Anxiety Assessment & Plan: Detox for anxiety/xanax in October of 2015 Psych consult: Dr. Smith, help appreciated -Ativan taper -Gabapentin 300mg PO TID -CBT and supportive therapy Status: Chronic (8) Back pain Assessment & Plan: Pt reports history of 'herniated discs' Lidoderm patch PT/OT eval ordered 10/23/16 Status: Chronic (9) Prophylactic measure Assessment & Plan: DVT: SCDs VTE: Heparin 5000 units q12h GI: Protonix IV daily PT ordered. F/U rehab info Status: Acute - Assessment and Plan (Free Text) Assessment: Management as per Dr. Becerril
[2016-10-24] MEDS: Albuterol-Ipratrop 3 mg / 0.5 (3 ml) UD INH SCH ×4 (01:45→20:00)
[2016-10-24] MEDS: Budesonide 0.5 mg/2 ml Inhal Susp UD INH SCH ×2 (07:44→20:00)
[2016-10-24 08:14] LABS: BASO # 0.5 K/uL (0.0-0.2); BASO % 1.2 % (0.0-2.0); EOS # 0.3 K/uL (0.0-0.7); EOS % 0.6 % (0.0-4.0); HEMATOCRIT 25.4 % (34.0-47.0); LYMPH # 3.4 K/uL (1.0-4.3); LYMPH % 7.4 % (20.0-40.0); MEAN CELL VOLUME 111.4 fL (81.0-99.0); MEAN CORPUSCULAR HEMOGLOBIN 33.3 pg (27.0-31.0); MEAN CORPUSCULAR HGB CONC 29.9 g/dL (33.0-37.0); MEAN PLATELET VOLUME 9.7 fL (7.2-11.7); MONO # 1.2 K/uL (0.0-0.8); MONO % 2.7 % (0.0-10.0); PLATELET COUNT 374 K/uL (130-400); RED CELL DISTRIBUTION WIDTH 18.3 % (11.5-14.5)
[2016-10-24 08:22] LABS: CHLORIDE 97 mmol/L (98-107)
[2016-10-24 08:23] LABS: POTASSIUM 4.3 mmol/L (3.6-5.2); SODIUM 137 mmol/L (132-148); WHITE BLOOD COUNT 45.9 K/uL (4.8-10.8)
[2016-10-24 08:25] LABS: AST/SGOT 153 U/L (14-36); BILIRUBIN,TOTAL 9.8 mg/dL (0.2-1.3); CARBON DIOXIDE 25 mmol/L (22-30); GFR AFRICAN-AMERICAN > 60
[2016-10-24 08:26] LABS: ALB/GLOB RATIO 0.9 (1.0-2.1); ALKALINE PHOSPHATASE 188 U/L (38-126); ALT/SGPT 63 U/L (9-52); BLOOD UREA NITROGEN 11 mg/dL (7-17); CALCIUM 8.4 mg/dl (8.6-10.4); GLUCOSE,RANDOM 111 mg/dL (65-105)
[2016-10-24 10:09] LABS: NEUTROPHIL 67 % (50-75); REACTIVE LYMPHOCYTES 1 % (0-0); TOTAL CELLS COUNTED 100
[2016-10-24] MEDS: Morphine 4 MG/ML VIAL IV PRN ×3 (10:24→22:30)
[2016-10-24] MEDS: Lidocaine 5% Patch TD SCH (10:43)
[2016-10-24] MEDS: Potassium Chloride 20 mEq ER Tab PO SCH (10:43)
[2016-10-24] MEDS: guaiFENesin 600 mg ER Tab PO SCH ×2 (10:43→18:04)
--- NOTE | 2016-10-24 10:43 | RAD ---
PROCEDURE: CHEST RADIOGRAPH, 1 VIEW HISTORY: shortness of breath COMPARISON: 10/16/2016 FINDINGS: LUNGS: Large loculated right pleural effusion with adjacent airspace consolidation. Venous congestion. PLEURA: As above. CARDIOVASCULAR: Cardiomegaly. OSSEOUS STRUCTURES: No significant abnormalities. VISUALIZED UPPER ABDOMEN: Normal. OTHER FINDINGS: None. IMPRESSION: Large loculated right pleural effusion with adjacent airspace consolidation. Venous congestion.
--- NOTE | 2016-10-24 10:52 | CP.PCM.PN ---
Subjective - Date & Time of Evaluation Date of Evaluation: 10/24/16 Time of Evaluation: 07:15 - Subjective Subjective: Medicine Progress Note- Dr Becerril's service Patient seen and examined. Patient sitting upright in bed and eating breakfast. Pt complains that she has a small appetite due to her abdominal distention. Pt had episode of epistaxis this morning that resolved with little bleeding. Per patient, she does not want to go to [facility]) and wishes to go home. Patient is AAOx3. She complains that she feels short of breath this morning due to the pressure of her abdomen on her chest. Denies fever, chills, nausea, vomiting, chest pain, palpitations, cough, weakness, confusion, headache. Objective - Vital Signs/Intake and Output Vital Signs (last 24 hours): Temp Pulse Resp BP Pulse Ox 97.5 F L 75 20 120/68 97 10/24/16 08:00 10/24/16 08:00 10/24/16 08:00 10/24/16 10:37 10/24/16 08:00 - Medications Medications: Current Medications Albuterol/Ipratropium (Duoneb 3 Mg/0.5 Mg (3 Ml) Ud) 3 ml INH RQ6 [facility] Last Admin: 10/24/16 07:43 Dose: 3 ml Budesonide (Pulmicort Respules) 0.5 mg INH RQ12 [facility] Last Admin: 10/24/16 07:44 Dose: 0.5 mg Furosemide (Lasix) 20 mg IVP DAILY [facility] Last Admin: 10/24/16 10:37 Dose: 20 mg Gabapentin (Neurontin) 300 mg PO TID [facility] Last Admin: 10/24/16 10:42 Dose: 300 mg Gabapentin (Neurontin) 400 mg PO HS [facility] Last Admin: 10/23/16 22:01 Dose: 400 mg Guaifenesin (Mucinex La) 600 mg PO BID [facility] Last Admin: 10/24/16 10:43 Dose: 600 mg Moxifloxacin HCl (Avelox Iv 400mg/250ml Ns) 250 mls @ 167 mls/hr IVPB Q24H [facility] Last Admin: 10/23/16 10:42 Dose: 167 mls/hr Lactulose (Enulose) 30 gm PO Q6 [facility] Last Admin: 10/24/16 00:09 Dose: 30 gm Lidocaine (Lidoderm) 2 ea TD DAILY [facility] Last Admin: 10/24/16 10:43 Dose: Not Given Lorazepam (Ativan) 0.5 mg PO TID PRN PRN Reason: Anxiety Morphine Sulfate (Morphine) 2 mg IV Q6 PRN PRN Reason: Pain, moderate (4-7) Last Admin: 10/24/16 10:24 Dose: 2 mg Pantoprazole Sodium (Protonix Inj) 40 mg IVP DAILY [facility] Last Admin: 10/24/16 10:35 Dose: 40 mg Potassium Chloride (K-Dur 20 Meq Er Tab) 20 meq PO DAILY [facility] Last Admin: 10/24/16 10:43 Dose: 20 meq Prednisone (Prednisone Tab) 20 mg PO DAILY [facility] Last Admin: 10/24/16 10:43 Dose: 20 mg Rifaximin (Xifaxan) 550 mg PO BID [facility] Last Admin: 10/24/16 10:41 Dose: 550 mg Spironolactone (Aldactone) 50 mg PO DAILY [facility] Last Admin: 10/24/16 10:42 Dose: 50 mg - Labs Labs: 10/24/16 07:55 10/24/16 07:55 PT 16.0 SECONDS (9.7-12.2) H 10/15/16 06:52 INR 1.4 10/15/16 06:52 APTT 29 SECONDS (21-34) 10/15/16 06:52 - Constitutional Appears: No Acute Distress - Head Exam Head Exam: ATRAUMATIC, NORMOCEPHALIC - Eye Exam Eye Exam: EOMI, Scleral icterus Pupil Exam: PERRL - ENT Exam ENT Exam: Mucous Membranes Moist - Neck Exam Neck Exam: Full ROM, Normal Inspection - Respiratory Exam Respiratory Exam: Rhonchi (mild rhonchi right base), NORMAL BREATHING PATTERN. absent: Accessory Muscle Use, Stridor - Cardiovascular Exam Cardiovascular Exam: Tachycardia, REGULAR RHYTHM, +S1, +S2. absent: Irregular Rhythm, Murmur - GI/Abdominal Exam GI & Abdominal Exam: Distended, Soft, Normal Bowel Sounds. absent: Guarding, Rigid, Tenderness, Mass - Extremities Exam Extremities Exam: Full ROM, Pedal Edema (1+ pitting edema B/L) - Neurological Exam Neurological Exam: Alert, Awake, CN II-XII Intact, Oriented x3 - Psychiatric Exam Psychiatric exam: Normal Affect, Normal Mood - Skin Skin Exam: Dry, Intact, Warm Additional comments: Jaundice Assessment and Plan - Assessment and Plan (Free Text) Assessment: (1) Leukocytosis Assessment & Plan: CODE SEPSIS (10/13/16) Criteria on admission: Leukocytosis 60.5, Tachycardic, Tachypnic WBC downtrending; 45.9 today, left shift w. 25bands Dr. Velazquez, ID consult: help appreciated - maintain current antibiotic course Sputum Cx (10/14/16): Klebsiella Pneumoniae - Continue Avelox 400mg IV Daily - DAY 8 started on 10/16 - Continue Prednisone 20mg PO Daily - Continue Rifaximin 550mg PO BID Cdiff (10/13/16): negative Blood cx (10/13/16): no growth for 5 days x 2 Urine cx (10/13/16): no growth MRSA screen (10/13/16): not detected Status: Acute (2) Pleural effusion Assessment & Plan: 10/24 Chest Xray shows Large loculated right pleural effusion with adjacent airspace consolidation. Venous congestion. Will f/u with IR for possible repeat Thoracentesis. f/u PT/PTT s/p IR thoracentesis (10/17/16) - 500cc removed - Cytology studies: Transudative effusion, elevated neutrophils and lymphocytes Sputum culture (10/14/16): Klebsiella pneumoniae - Continued Maxipime 1gm Q12H IV - Continued Avelox 400mg IV Daily CT A/P (10/15/16): RLL consolidation and pleural effusion. Mild left lung atelectasis. 6mm left lower lobe pulm nodule (should have repeat CT in 3-12 months based on malignancy risk). (see full report) CXR (10/16/16): moderate to large rt pleural effusion with consolidative changes in rt mid-lower lung zone. Venous congestion. Upper lobe granulomatous changes. Scattered nodularity in upper lung zones. Cardiomegaly. (see full report) CT Chest (10/16/16): Moderate to large right pleural effusion. Complete consolidation of right lower lobe and partial collapse/consolidation of of right middle lobe. Ground glass opacities. Cardiomegaly. (see full report) Status: Acute (3) Seizure Assessment & Plan: Hepatic Encephalopathy on presentation. Currently resolved. 10/23/16 Ammonia 29 Mentating without difficulty Continue Gabapentin 300mg PO BID Ativan 0.5mg IVP PRN shakiness/anxiety Status: Acute (4) Liver failure Assessment & Plan: Secondary to alcoholic hepatitis w. decompensated liver failure Hyperammonemia on admission- Ammonia level: 62 from 60 yesterday - Lactulose 30g to Q6H - Spirinolactone 50mg Daily - Rifaximin 550mg PO BID - Lasix 20mg IV daily Status: Chronic (5) Alcohol dependence Assessment & Plan: Hx of Benzo/Alcohol Abuse - UDS negative Status: Chronic (6) Asthma Assessment & Plan: O2 saturation: 98% on Room Air - Pulmicort Respules 0.5mg Q12H substituted for home Advair - Duonebs Q6H DAKSHA Status: Chronic (7) Anxiety Assessment & Plan: Detox for anxiety/xanax in October of 2015 Psych consult: Dr. Smith, help appreciated -Ativan taper -Gabapentin 300mg PO TID, 400mg PO HS -CBT and supportive therapy Status: Chronic (8) Back pain Assessment & Plan: Pt reports history of 'herniated discs' Lidoderm patch Morphine 2mg IV q6h prn PT/OT eval ordered 10/23/16 Status: Chronic (9) Prophylactic measure Assessment & Plan: DVT: SCDs VTE: Heparin 5000 units q12h GI: Protonix IV daily PT ordered. Status: Acute - Assessment and Plan (Free Text) Assessment: Management as per Dr. Becerril
[2016-10-24] MEDS: Moxifloxacin IV 400mg/250ml NS 250 ML IVPB SCH (11:44)
--- NOTE | 2016-10-24 14:20 | PCM.SURG1 ---
Surgeon's Initial Post Op Note - Surgeon's Notes Surgeon: Gerald Buchanan MD Carton Wrapper: NONE Type of Anesthesia: Local Pre-Operative Diagnosis: Right pleural effusion Operative Findings: US showed a small right effusion Post-Operative Diagnosis: Right pleural effusion Operation Performed: US guided right thoracentesis. Specimen/Specimens Removed: 600 cc of yellow fluid Estimated Blood Loss: EBL {In ML}: 0 Blood Products Given: N/A Drains Used: No Drains Post-Op Condition: Fair Date of Surgery/Procedure: 10/24/16 Time of Surgery/Procedure: 13:55
[2016-10-24 14:26] LABS: INR 1.5
--- NOTE | 2016-10-24 14:27 | US ---
PROCEDURE: Date of procedure: 10/23/2016 Procedure: 1. Ultrasound-guided Right thoracentesis, CPT 88248 Medications: 1% Lidocaine HISTORY: Right pleural effusion, shortness of breath TECHNIQUE: Following informed consent ,the Patients' right chest was marked. Procedure time-out was called, and the patient was placed in the sitting position and limited ultrasound showed a large right effusion. The patient's right back was prepped and draped in the usual sterile fashion. After the skin was anesthetized with lidocaine, a drainage catheter was advanced under ultrasound guidance into the pleural space. Ultrasound-guided thoracentesis was performed. A total of 600 cubic centimeters of yellow colored fluid removed without complication. A Xeroform dressing was applied. IMPRESSION: Ultrasound guided Right thoracentesis. There were no immediate complications.
--- NOTE | 2016-10-24 21:16 | RAD ---
EXAM: XR Chest, 1 View CLINICAL HISTORY: 31 years old, female; Signs and symptoms; Cough; Symptoms not specified; Patient HX: Thoracentesis done today; Additional info: Coughing out of blood TECHNIQUE: Frontal view of the chest. COMPARISON: No relevant prior studies available. FINDINGS: Limitations: Radiographic technique - mild. Lungs: Mild underinflation. Increased density within RIGHT lung base. Pleural space: Small RIGHT pleural effusion. No definite pneumothorax. Heart: Mild cardiomegaly. Mediastinum: Unremarkable. Bones/joints: No acute fracture. IMPRESSION: 1. Small RIGHT pleural effusion with RLL atelectasis and/or pneumonia. 2. Incidental/non-acute findings are described above.
[2016-10-24] MEDS: Phytonadione 10 mg/ml Inj (Adult) SC SCH (21:18)
[2016-10-25] MEDS: Albuterol-Ipratrop 3 mg / 0.5 (3 ml) UD INH SCH ×4 (01:04→20:13)
[2016-10-25] MEDS: Morphine 4 MG/ML VIAL IV PRN ×4 (04:39→22:46)
[2016-10-25 08:04] LABS: BASO # 0.4 K/uL (0.0-0.2); BASO % 0.9 % (0.0-2.0); EOS # 0.2 K/uL (0.0-0.7); EOS % 0.6 % (0.0-4.0); HEMATOCRIT 26.6 % (34.0-47.0); LYMPH # 2.7 K/uL (1.0-4.3); LYMPH % 6.1 % (20.0-40.0); MEAN CELL VOLUME 110.6 fL (81.0-99.0); MEAN CORPUSCULAR HGB CONC 29.9 g/dL (33.0-37.0); MEAN PLATELET VOLUME 9.7 fL (7.2-11.7); MONO % 2.3 % (0.0-10.0); PLATELET COUNT 437 K/uL (130-400); RED CELL DISTRIBUTION WIDTH 18.8 % (11.5-14.5)
[2016-10-25 08:12] LABS: CHLORIDE 96 mmol/L (98-107); POTASSIUM 4.3 mmol/L (3.6-5.2); SODIUM 137 mmol/L (132-148); WHITE BLOOD COUNT 44.1 K/uL (4.8-10.8)
[2016-10-25 08:14] LABS: ALB/GLOB RATIO 0.9 (1.0-2.1); BILIRUBIN,TOTAL 10.4 mg/dL (0.2-1.3); CARBON DIOXIDE 26 mmol/L (22-30); GFR AFRICAN-AMERICAN > 60; TOTAL PROTEIN 7.4 g/dL (6.3-8.3)
[2016-10-25 08:15] LABS: ALKALINE PHOSPHATASE 180 U/L (38-126); ALT/SGPT 64 U/L (9-52); AST/SGOT 122 U/L (14-36); BLOOD UREA NITROGEN 12 mg/dL (7-17); CALCIUM 8.5 mg/dl (8.6-10.4); GLUCOSE,RANDOM 86 mg/dL (65-105)
--- NOTE | 2016-10-25 08:25 | RAD ---
PROCEDURE: CHEST RADIOGRAPH, 1 VIEW HISTORY: s/p thoracentesis COMPARISON: 10/24/2016 FINDINGS: LUNGS: Persistent small loculated right pleural effusion with adjacent consolidative changes in the right mid to lower lung zone. Venous congestion. Right hilar prominence. Elevated right hemidiaphragm. PLEURA: As above. CARDIOVASCULAR: Normal. OSSEOUS STRUCTURES: No significant abnormalities. VISUALIZED UPPER ABDOMEN: Normal. OTHER FINDINGS: None. IMPRESSION: Persistent small loculated right pleural effusion with adjacent consolidative changes in the right mid to lower lung zone. Venous congestion. Right hilar prominence.
[2016-10-25] MEDS: Budesonide 0.5 mg/2 ml Inhal Susp UD INH SCH ×2 (09:05→20:13)
[2016-10-25 09:28] LABS: MYELOCYTE 1 % (0-0); NEUTROPHIL 75 % (50-75); REACTIVE LYMPHOCYTES 1 % (0-0); TOTAL CELLS COUNTED 100
[2016-10-25 09:30] LABS: LARGE PLATELETS PRESENT
[2016-10-25] MEDS: Potassium Chloride 20 mEq ER Tab PO SCH (10:30)
[2016-10-25] MEDS: guaiFENesin 600 mg ER Tab PO SCH ×2 (10:32→17:51)
[2016-10-25] MEDS: Lidocaine 5% Patch TD SCH (10:32)
[2016-10-25] MEDS: Phytonadione 10 mg/ml Inj (Adult) SC SCH (10:33)
--- NOTE | 2016-10-25 11:09 | CP.PCM.PN ---
Subjective - Date & Time of Evaluation Date of Evaluation: 10/25/16 Time of Evaluation: 09:30 - Subjective Subjective: Medicine Progress Note- Dr. Becerril's service: Patient seen and examined at bedside this AM. Admits SOB has improved s/p thoracentesis yesterday. Patient is complaining of abdominal pain this AM. She had one BM yesterday that was small and loose. Admits to new productive cough and nasal congestion. Objective - Vital Signs/Intake and Output Vital Signs (last 24 hours): Temp Pulse Resp BP Pulse Ox 98.3 F 119 H 20 120/70 96 10/25/16 08:00 10/25/16 08:00 10/25/16 08:00 10/25/16 10:31 10/25/16 08:00 Intake and Output: 10/25/16 10/25/16 06:59 18:59 Intake Total 710 Balance 710 - Medications Medications: Current Medications Albuterol/Ipratropium (Duoneb 3 Mg/0.5 Mg (3 Ml) Ud) 3 ml INH RQ6 [facility] Last Admin: 10/25/16 09:05 Dose: 3 ml Budesonide (Pulmicort Respules) 0.5 mg INH RQ12 [facility] Last Admin: 10/25/16 09:05 Dose: 0.5 mg Furosemide (Lasix) 40 mg IVP DAILY [facility] Last Admin: 10/25/16 10:31 Dose: 40 mg Gabapentin (Neurontin) 300 mg PO TID [facility] Last Admin: 10/25/16 10:51 Dose: 300 mg Gabapentin (Neurontin) 400 mg PO HS [facility] Last Admin: 10/24/16 21:19 Dose: 400 mg Guaifenesin (Mucinex La) 600 mg PO BID [facility] Last Admin: 10/25/16 10:32 Dose: 600 mg Moxifloxacin HCl (Avelox Iv 400mg/250ml Ns) 250 mls @ 167 mls/hr IVPB Q24H [facility] Last Admin: 10/24/16 11:44 Dose: 167 mls/hr Lidocaine (Lidoderm) 2 ea TD DAILY [facility] Last Admin: 10/25/16 10:32 Dose: Not Given Lorazepam (Ativan) 0.5 mg PO TID PRN PRN Reason: Anxiety Morphine Sulfate (Morphine) 2 mg IV Q6 PRN PRN Reason: Pain, moderate (4-7) Last Admin: 10/25/16 10:51 Dose: 2 mg Pantoprazole Sodium (Protonix Inj) 40 mg IVP DAILY [facility] Last Admin: 10/25/16 10:33 Dose: 40 mg Phytonadione (Vitamin K Inj) 5 mg SC DAILY [facility] Stop: 10/26/16 10:01 Last Admin: 10/25/16 10:33 Dose: 5 mg Potassium Chloride (K-Dur 20 Meq Er Tab) 20 meq PO DAILY [facility] Last Admin: 10/25/16 10:30 Dose: 20 meq Prednisone (Prednisone Tab) 20 mg PO DAILY [facility] Last Admin: 10/25/16 10:33 Dose: 20 mg Rifaximin (Xifaxan) 550 mg PO BID [facility] Last Admin: 10/25/16 10:34 Dose: 550 mg Spironolactone (Aldactone) 50 mg PO DAILY [facility] Last Admin: 10/25/16 10:30 Dose: 50 mg - Labs Labs: 10/25/16 07:53 10/25/16 07:53 PT 16.9 SECONDS (9.7-12.2) H 10/24/16 14:07 INR 1.5 10/24/16 14:07 APTT 44 SECONDS (21-34) H 10/24/16 14:07 - Constitutional Appears: No Acute Distress, Chronically Ill - Head Exam Head Exam: NORMAL INSPECTION, NORMOCEPHALIC - Eye Exam Eye Exam: EOMI, Scleral icterus - ENT Exam ENT Exam: Mucous Membranes Moist Additional comments: +NGT in place - Neck Exam Neck Exam: Full ROM, Normal Inspection - Respiratory Exam Respiratory Exam: Clear to Ausculation Bilateral, NORMAL BREATHING PATTERN - Cardiovascular Exam Cardiovascular Exam: REGULAR RHYTHM, +S1, +S2 - GI/Abdominal Exam GI & Abdominal Exam: Soft, Tenderness (epigastric TTP), Hypoactive Bowel Sounds. absent: Distended - Extremities Exam Extremities Exam: Full ROM, Normal Inspection - Back Exam Back Exam: NORMAL INSPECTION - Neurological Exam Neurological Exam: Alert, Awake, Oriented x3 - Psychiatric Exam Psychiatric exam: Normal Affect, Normal Mood - Skin Skin Exam: Warm. absent: Normal Color (jaundice) Assessment and Plan - Assessment and Plan (Free Text) Assessment: (1) Leukocytosis Assessment & Plan: CODE SEPSIS (10/13/16) WBC downtrending; 45.9 today, left shift w. 25bands Criteria on admission: Leukocytosis 60.5, Tachycardic, Tachypnic Dr. Velazquez, ID consult: help appreciated Sputum Cx (10/22/16): +ESBL Sputum Cx (10/14/16): Klebsiella Pneumoniae - Continue Avelox 400mg IV Daily - DAY 8 started on 10/16 - Continue Prednisone 20mg PO Daily - Continue Rifaximin 550mg PO BID Dr. Velazquez notified about ESBL Cx. ID to change antibiotics. Cdiff (10/13/16): negative Blood cx (10/13/16): no growth for 5 days x 2 Urine cx (10/13/16): no growth MRSA screen (10/13/16): not detected Status: Acute (2) Pleural effusion Assessment & Plan: 10/24 Chest Xray shows Large loculated right pleural effusion with adjacent airspace consolidation. Venous congestion. s/p IR thoracentesis 10/24/16 with 600 cc removed. Patient had IR thoracentesis (10/17/16) with 500cc removed. Cytology studies: Transudative effusion, elevated neutrophils and lymphocytes Sputum Cx (10/22/16): +ESBL. Patient placed on contact precautions Sputum culture (10/14/16): Klebsiella pneumoniae - Continued Maxipime 1gm Q12H IV - Continued Avelox 400mg IV Daily CT A/P (10/15/16): RLL consolidation and pleural effusion. Mild left lung atelectasis. 6mm left lower lobe pulm nodule (should have repeat CT in 3-12 months based on malignancy risk). (see full report) CXR (10/16/16): moderate to large rt pleural effusion with consolidative changes in rt mid-lower lung zone. Venous congestion. Upper lobe granulomatous changes. Scattered nodularity in upper lung zones. Cardiomegaly. (see full report) CT Chest (10/16/16): Moderate to large right pleural effusion. Complete consolidation of right lower lobe and partial collapse/consolidation of of right middle lobe. Ground glass opacities. Cardiomegaly. (see full report) Status: Acute (3) Anemia Hgb 7.9 f/u iron studies f/u stool OB 4) Seizure Assessment & Plan: Hepatic Encephalopathy on presentation. Currently resolved. Mentating without difficulty Continue Gabapentin 300mg PO BID Ativan 0.5mg IVP PRN shakiness/anxiety Status: Acute (4) Liver failure Assessment & Plan: Secondary to alcoholic hepatitis w. decompensated liver failure Hyperammonemia on admission. 10/23/16 Ammonia 29. Lactulose D/C 10/25/16. - Spirinolactone 50mg Daily - Rifaximin 550mg PO BID - Lasix 20mg IV daily Status: Chronic (5) Alcohol dependence Assessment & Plan: Hx of Benzo/Alcohol Abuse - UDS negative Status: Chronic (6) Asthma Assessment & Plan: O2 saturation: 98% on Room Air - Pulmicort Respules 0.5mg Q12H substituted for home Advair - Duonebs Q6H DAKSHA Status: Chronic (7) Anxiety Assessment & Plan: Detox for anxiety/xanax in October of 2015 Psych consult: Dr. Smith, bishnu appreciated -Ativan taper -Gabapentin 300mg PO TID, 400mg PO HS -CBT and supportive therapy Status: Chronic (8) Back pain Assessment & Plan: Pt reports history of 'herniated discs' Lidoderm patch Morphine 2mg IV q6h prn PT/OT eval ordered 10/23/16 Status: Chronic (9) Prophylactic measure Assessment & Plan: DVT: SCDs VTE: Heparin 5000 units q12h GI: Protonix IV daily PT ordered. Status: Acute Management as per Dr. Becerril
[2016-10-25] MEDS: Moxifloxacin IV 400mg/250ml NS 250 ML IVPB SCH (11:22)
--- NOTE | 2016-10-25 17:29 | CP.PCM.PN ---
Subjective - Date & Time of Evaluation Date of Evaluation: 10/25/16 Time of Evaluation: 10:00 - Subjective Subjective: sputum + ESBL gram neg started merrem Objective - Vital Signs/Intake and Output Vital Signs (last 24 hours): Temp Pulse Resp BP Pulse Ox 99 F 126 H 20 119/61 95 10/25/16 16:00 10/25/16 16:00 10/25/16 16:00 10/25/16 16:00 10/25/16 16:00 Intake and Output: 10/25/16 10/25/16 06:59 18:59 Intake Total 710 750 Output Total 0 Balance 710 750 - Medications Medications: Current Medications Albuterol/Ipratropium (Duoneb 3 Mg/0.5 Mg (3 Ml) Ud) 3 ml INH RQ6 [facility] Last Admin: 10/25/16 13:59 Dose: 3 ml Budesonide (Pulmicort Respules) 0.5 mg INH RQ12 [facility] Last Admin: 10/25/16 09:05 Dose: 0.5 mg Diphenhydramine HCl (Benadryl) 25 mg PO HS PRN PRN Reason: Insomnia Furosemide (Lasix) 40 mg IVP DAILY [facility] Last Admin: 10/25/16 10:31 Dose: 40 mg Gabapentin (Neurontin) 300 mg PO TID [facility] Last Admin: 10/25/16 13:53 Dose: 300 mg Gabapentin (Neurontin) 400 mg PO HS [facility] Last Admin: 10/24/16 21:19 Dose: 400 mg Guaifenesin (Mucinex La) 600 mg PO BID [facility] Last Admin: 10/25/16 10:32 Dose: 600 mg Lidocaine (Lidoderm) 2 ea TD DAILY [facility] Last Admin: 10/25/16 10:32 Dose: Not Given Lorazepam (Ativan) 0.5 mg PO TID PRN PRN Reason: Anxiety Morphine Sulfate (Morphine) 2 mg IV Q6 PRN PRN Reason: Pain, moderate (4-7) Last Admin: 10/25/16 16:49 Dose: 2 mg Pantoprazole Sodium (Protonix Inj) 40 mg IVP DAILY [facility] Last Admin: 10/25/16 10:33 Dose: 40 mg Phytonadione (Vitamin K Inj) 5 mg SC DAILY [facility] Stop: 10/26/16 10:01 Last Admin: 10/25/16 10:33 Dose: 5 mg Potassium Chloride (K-Dur 20 Meq Er Tab) 20 meq PO DAILY [facility] Last Admin: 10/25/16 10:30 Dose: 20 meq Prednisone (Prednisone Tab) 20 mg PO DAILY [facility] Last Admin: 10/25/16 10:33 Dose: 20 mg Rifaximin (Xifaxan) 550 mg PO BID [facility] Last Admin: 10/25/16 10:34 Dose: 550 mg Spironolactone (Aldactone) 50 mg PO DAILY [facility] Last Admin: 10/25/16 10:30 Dose: 50 mg - Labs Labs: 10/25/16 07:53 10/25/16 07:53 PT 16.9 SECONDS (9.7-12.2) H 10/24/16 14:07 INR 1.5 10/24/16 14:07 APTT 44 SECONDS (21-34) H 10/24/16 14:07 - Constitutional Appears: Non-toxic - Eye Exam Eye Exam: Scleral icterus - ENT Exam ENT Exam: Mucous Membranes Dry - Neck Exam Neck Exam: absent: Lymphadenopathy - Respiratory Exam Respiratory Exam: Decreased Breath Sounds, Rhonchi - Cardiovascular Exam Cardiovascular Exam: REGULAR RHYTHM, +S1, +S2 - GI/Abdominal Exam GI & Abdominal Exam: Distended, Soft Assessment and Plan (1) Liver failure Status: Chronic (2) Sepsis Status: Acute (3) Hepatic encephalopathy Status: Acute (4) Seizure Status: Acute
[2016-10-25] MEDS ORDERED: Meropenem 500 MG in Sodium Chloride 0.9% 100 ML IVPB SCH (17:30)
[2016-10-25] MEDS ORDERED: Meropenem 1 GM in Sodium Chloride 0.9% 100 ML IVPB SCH (18:30)
[2016-10-26] MEDS: Albuterol-Ipratrop 3 mg / 0.5 (3 ml) UD INH SCH ×4 (01:07→19:16)
[2016-10-26] MEDS: Morphine 4 MG/ML VIAL IV PRN ×3 (04:58→17:20)
[2016-10-26] MEDS: Meropenem 1 GM in Sodium Chloride 0.9% 100 ML IVPB SCH ×3 (05:05→21:45)
[2016-10-26 07:21] LABS: IRON 36 ug/dL (37-170)
[2016-10-26 07:37] LABS: BASO # 0.3 K/uL (0.0-0.2); BASO % 0.6 % (0.0-2.0); EOS # 0.3 K/uL (0.0-0.7); EOS % 0.6 % (0.0-4.0); HEMATOCRIT 25.1 % (34.0-47.0); LYMPH # 2.2 K/uL (1.0-4.3); LYMPH % 5.3 % (20.0-40.0); MEAN CELL VOLUME 109.3 fL (81.0-99.0); MEAN CORPUSCULAR HEMOGLOBIN 33.3 pg (27.0-31.0); MEAN CORPUSCULAR HGB CONC 30.5 g/dL (33.0-37.0); MEAN PLATELET VOLUME 9.8 fL (7.2-11.7); MONO # 0.8 K/uL (0.0-0.8); MONO % 1.9 % (0.0-10.0); PLATELET COUNT 446 K/uL (130-400); RED CELL DISTRIBUTION WIDTH 18.2 % (11.5-14.5)
[2016-10-26 07:43] LABS: WHITE BLOOD COUNT 41.9 K/uL (4.8-10.8)
[2016-10-26 07:47] LABS: CHLORIDE 97 mmol/L (98-107); SODIUM 137 mmol/L (132-148)
[2016-10-26 07:48] LABS: POTASSIUM 4.2 mmol/L (3.6-5.2)
[2016-10-26] MEDS: Budesonide 0.5 mg/2 ml Inhal Susp UD INH SCH ×2 (07:48→19:16)
[2016-10-26 07:50] LABS: ALB/GLOB RATIO 0.9 (1.0-2.1); ALKALINE PHOSPHATASE 188 U/L (38-126); ALT/SGPT 60 U/L (9-52); AST/SGOT 129 U/L (14-36); BILIRUBIN,TOTAL 8.1 mg/dL (0.2-1.3); BLOOD UREA NITROGEN 13 mg/dL (7-17); CARBON DIOXIDE 26 mmol/L (22-30); GFR AFRICAN-AMERICAN > 60; GLUCOSE,RANDOM 86 mg/dL (65-105); TOTAL PROTEIN 6.7 g/dL (6.3-8.3)
[2016-10-26] MEDS: Potassium Chloride 20 mEq ER Tab PO SCH (10:00)
[2016-10-26] MEDS: Lidocaine 5% Patch TD SCH (10:02)
[2016-10-26] MEDS: guaiFENesin 600 mg ER Tab PO SCH ×2 (10:02→17:20)
[2016-10-26] MEDS: Phytonadione 10 mg/ml Inj (Adult) SC SCH (10:03)
[2016-10-26 10:08] LABS: NEUTROPHIL 72 % (50-75); TOTAL CELLS COUNTED 100
[2016-10-26] MEDS: Ferric Sodium Gluconat Complex 62.5 mg/5 ml Vial IVPB SCH (10:55)
[2016-10-26] MEDS ORDERED: Epoetin Alfa Dialysis 3000 UNIT/ML Inj IV SCH (13:00)
--- NOTE | 2016-10-26 14:01 | PCM.PYCHPN ---
Psychiatric Progress Note - Psychiatric Progress Note Patient seen today, length of contact: 20 min Patient Chief Complaint: "I'm feeling alright" Problems Identified/Issues Discussed: The patient is seen, chart reviewed and case discussed Pt was tremulous but denies withdrawal symptoms. Pt slept well last night after receiving Benadryl but had significant insomnia the nights prior. Her medical condition is not improving and she is following up with [facility] for further medical treatment. Pt says her mood is ok. She was happy that her 11 year old daughter came to visit yesterday and she was able to celebrate her daughter's birthday while in hospital. Pt denies S/I and seems determined to get the treatment/surgery she needs for her medical condition. Pt says she may need a blood transfusion and seems anxious about getting blood from a stranger as opposed to someone in her family. Support and psychoeducation given. Medication Change: Yes (gabapentin HS ) Medical Record Reviewed: Yes Mental Status Examination - Cognitive Function Orientation: Person, Place, Situation, Time Memory: Intact Attention: WNL Concentration: WNL Association: WNL Fund of Knowledge: WNL - Mood Mood: Anxious - Affect Affect: Broad - Speech Speech: Appropriate, Soft - Formal Thought Process Formal Thought Process: No Impairment - Suicidal Ideation Suicidal Ideation: No - Homicidal Ideation Homicidal Ideation: No Goal/Treatment Plan - Goal/Treatment Plan Need for Continued Stay: Severe functional impairment, Other (medical tx) Progress Toward Problem(s) and Goals/Treatment Plan: Anxiety: -Gabapentin increase 300mg PO TID + 600 HS -CBT and supportive therapy Benzodiazepines: -Ativan taper ended short, now prn -As needed meds -WA, CBT -refer to program Alcohol: -WA for abstinence
--- NOTE | 2016-10-26 14:59 | CP.PCM.PN ---
Subjective - Date & Time of Evaluation Date of Evaluation: 10/26/16 Time of Evaluation: 09:35 - Subjective Subjective: Medicine Progress Note- Dr. Becerril's Service: Patient seen and examined at bedside this AM. Patient reports feeling better this AM. No SOB, CP, dysuria, fevers, chills.She reports she has never had a blood transfusion and does not admit to blood from any site.She continues to complain of abdominal pain. Patient is ambulating and had no imported issues overnight. Objective - Vital Signs/Intake and Output Vital Signs (last 24 hours): Temp Pulse Resp BP Pulse Ox 98.9 F 100 H 22 126/68 98 10/26/16 08:00 10/26/16 08:00 10/26/16 08:00 10/26/16 10:01 10/26/16 08:00 Intake and Output: 10/26/16 10/26/16 06:59 18:59 Intake Total 900 910 Output Total 400 0 Balance 500 910 - Medications Medications: Current Medications Albuterol/Ipratropium (Duoneb 3 Mg/0.5 Mg (3 Ml) Ud) 3 ml INH RQ6 [facility] Last Admin: 10/26/16 13:31 Dose: 3 ml Budesonide (Pulmicort Respules) 0.5 mg INH RQ12 [facility] Last Admin: 10/26/16 07:48 Dose: 0.5 mg Diphenhydramine HCl (Benadryl) 25 mg PO HS PRN PRN Reason: Insomnia Last Admin: 10/25/16 22:46 Dose: 25 mg Epoetin Sean (Procrit) 5,000 u SC TTS [facility] Ferric Sodium Gluconate Complex (Ferrlecit) 125 mg IVPB DAILY [facility] Stop: 10/29/16 10:01 Last Admin: 10/26/16 10:55 Dose: 125 mg Folic Acid (Folic Acid) 1 mg PO DAILY [facility] Last Admin: 10/26/16 13:46 Dose: 1 mg Furosemide (Lasix) 40 mg IVP DAILY [facility] Last Admin: 10/26/16 10:01 Dose: 40 mg Gabapentin (Neurontin) 300 mg PO TID [facility] Last Admin: 10/26/16 13:40 Dose: 300 mg Gabapentin (Neurontin) 600 mg PO HS [facility] Guaifenesin (Mucinex La) 600 mg PO BID [facility] Last Admin: 10/26/16 10:02 Dose: 600 mg Meropenem 1 gm/ Sodium (Chloride) 100 mls @ 100 mls/hr IVPB Q8H [facility] Last Admin: 10/26/16 13:44 Dose: 100 mls/hr Lidocaine (Lidoderm) 2 ea TD DAILY [facility] Last Admin: 10/26/16 10:02 Dose: Not Given Lorazepam (Ativan) 0.5 mg PO Q6H PRN PRN Reason: Anxiety Morphine Sulfate (Morphine) 2 mg IV Q6 PRN PRN Reason: Pain, moderate (4-7) Last Admin: 10/26/16 10:56 Dose: 2 mg Pantoprazole Sodium (Protonix Inj) 40 mg IVP DAILY [facility] Last Admin: 10/26/16 10:03 Dose: 40 mg Potassium Chloride (K-Dur 20 Meq Er Tab) 20 meq PO DAILY [facility] Last Admin: 10/26/16 10:00 Dose: 20 meq Prednisone (Prednisone Tab) 20 mg PO DAILY [facility] Last Admin: 10/26/16 10:02 Dose: 20 mg Rifaximin (Xifaxan) 550 mg PO BID [facility] Last Admin: 10/26/16 10:03 Dose: 550 mg Spironolactone (Aldactone) 50 mg PO DAILY [facility] Last Admin: 10/26/16 10:00 Dose: 50 mg Trazodone HCl (Desyrel) 50 mg PO HS [facility] - Labs Labs: 10/26/16 06:35 10/26/16 06:35 PT 16.9 SECONDS (9.7-12.2) H 10/24/16 14:07 INR 1.5 10/24/16 14:07 APTT 44 SECONDS (21-34) H 10/24/16 14:07 - Constitutional Appears: No Acute Distress - Head Exam Head Exam: NORMAL INSPECTION, NORMOCEPHALIC - Eye Exam Eye Exam: EOMI, Scleral icterus - ENT Exam ENT Exam: Mucous Membranes Moist - Neck Exam Neck Exam: Full ROM, Normal Inspection - Respiratory Exam Respiratory Exam: Clear to Ausculation Bilateral. absent: Rales, Rhonchi, Wheezes - Cardiovascular Exam Cardiovascular Exam: REGULAR RHYTHM, +S1, +S2 - GI/Abdominal Exam GI & Abdominal Exam: Soft, Tenderness. absent: Distended - Extremities Exam Extremities Exam: Full ROM, Normal Inspection - Neurological Exam Neurological Exam: Alert, Awake, Oriented x3 - Psychiatric Exam Psychiatric exam: Normal Affect, Normal Mood - Skin Skin Exam: Dry, Warm Additional comments: +Jaundice Assessment and Plan - Assessment and Plan (Free Text) Assessment: (1) Leukocytosis Assessment & Plan: CODE SEPSIS (10/13/16) WBC downtrending; 41.9 today, left shift w. 21 bands Criteria on admission: Leukocytosis 60.5, Tachycardic, Tachypnic Dr. Velazquez, ID consult: help appreciated Sputum Cx (10/22/16): +ESBL - Start Meropenem IVPB PICC line ordered today 10/26/16. Sputum Cx (10/14/16): Klebsiella Pneumoniae - Continue Avelox 400mg IV Daily - DAY 8 started on 10/16 - Continue Prednisone 20mg PO Daily - Continue Rifaximin 550mg PO BID Dr. Velazquez notified about ESBL Cx. ID to change antibiotics. Cdiff (10/13/16): negative Blood cx (10/13/16): no growth for 5 days x 2 Urine cx (10/13/16): no growth MRSA screen (10/13/16): not detected Status: Acute (2) Pleural effusion Assessment & Plan: 10/24 Chest Xray shows Large loculated right pleural effusion with adjacent airspace consolidation. Venous congestion. s/p IR thoracentesis 10/24/16 with 600 cc removed. Patient had IR thoracentesis (10/17/16) with 500cc removed. Cytology studies: Transudative effusion, elevated neutrophils and lymphocytes Sputum Cx (10/22/16): +ESBL. Patient placed on contact precautions Sputum culture (10/14/16): Klebsiella pneumoniae - DC Maxipime 1gm Q12H IV - DC Avelox 400mg IV CT A/P (10/15/16): RLL consolidation and pleural effusion. Mild left lung atelectasis. 6mm left lower lobe pulm nodule (should have repeat CT in 3-12 months based on malignancy risk). (see full report) CXR (10/16/16): moderate to large rt pleural effusion with consolidative changes in rt mid-lower lung zone. Venous congestion. Upper lobe granulomatous changes. Scattered nodularity in upper lung zones. Cardiomegaly. (see full report) CT Chest (10/16/16): Moderate to large right pleural effusion. Complete consolidation of right lower lobe and partial collapse/consolidation of of right middle lobe. Ground glass opacities. Cardiomegaly. (see full report) Status: Acute (3) Anemia Hgb 7.7 this AM Iron 36. Start Ferrilicit IVPB Start Procrit TTS Patient refusing transfusion at this time. f/u CBC and need for transfusion in the AM. f/u stool OB 4) Seizure Assessment & Plan: Hepatic Encephalopathy on presentation. Currently resolved. Mentating without difficulty Gabapentin 300mg PO BID Ativan 0.5mg IVP PRN shakiness/anxiety Status: Acute (4) Liver failure Assessment & Plan: Secondary to alcoholic hepatitis w. decompensated liver failure Hyperammonemia on admission. 10/23/16 Ammonia 29. Lactulose D/C 10/25/16. LFTs and Alk phos are elevated secondary to alcohol abuse - Spirinolactone 50mg Daily - Rifaximin 550mg PO BID - Lasix 20mg IV daily Status: Chronic (5) Alcohol dependence Assessment & Plan: Hx of Benzo/Alcohol Abuse - UDS negative Status: Chronic (6) Asthma Assessment & Plan: O2 saturation: 98% on Room Air - Pulmicort Respules 0.5mg Q12H substituted for home Advair - Duonebs Q6H [facility] Status: Chronic (7) Anxiety Assessment & Plan: Detox for anxiety/xanax in October of 2015 Psych consult: Dr. Smith, bishnu larry -Ativan taper -Gabapentin 300mg PO TID, 400mg PO HS -CBT and supportive therapy Status: Chronic (8) Back pain Assessment & Plan: Pt reports history of 'herniated discs' Lidoderm patch Morphine 2mg IV q6h prn PT/OT eval ordered 10/23/16 Status: Chronic (9) Prophylactic measure Assessment & Plan: DVT: SCDs VTE: Heparin 5000 units q12h GI: Protonix IV daily PT ordered. Status: Acute Management as per Dr. Becerril
[2016-10-26] MEDS ORDERED: Epoetin Alfa 3000 UNIT/ML Inj SC SCH ×3 (15:00→15:15)
[2016-10-26] MEDS ORDERED: [UNRECOGNIZED DRUG - OTHER] SC SCH ×2 (15:15)
[2016-10-26] MEDS: [UNRECOGNIZED DRUG - OTHER] SC SCH (15:16)
[2016-10-26] MEDS: Epoetin Alfa 3000 UNIT/ML Inj SC SCH (15:17)
--- NOTE | 2016-10-26 18:01 | CP.PCM.CON ---
History of Present Illness - History of Present Illness History of Present Illness: 31 year old female with a history of alcoholism complicated by liver disease, admitted with decompensated liver disease, currently undergoing treatment for pneumonia, found to have persistant leukocytosis. The patient denies blood problems in the past. She denies abnormal bleeding and bruising. Review of her blood work shows a slowly declining leukocytosis with predominant neutrophilia. Past medical history liver disease, alcoholism Past surgical history: Family history: Denies hematologic and oncologic problems Social history: Denies tobacco, reports used to drink a fifth of rum daily, denies illicit drug use. Allergies: NKA Review of systems: All remaining review of systems including HEENT, cardiovascular, respiratory, gastrointestinal, genitourinary, musculoskeletal, dermatologic, neurologic, and psychiatric are negative unless mentioned in the HPI. Past Patient History - Infectious Disease Hx of Infectious Diseases: None - Past Medical History & Family History Past Medical History?: Yes - Past Social History Smoking Status: Never Smoked - CARDIAC Hx Hypertension: Yes - PULMONARY Hx Asthma: Yes - NEUROLOGICAL Hx Seizures: Yes - HEENT Hx HEENT Problems: No - RENAL Hx Chronic Kidney Disease: No - ENDOCRINE/METABOLIC Hx Endocrine Disorders: No - HEMATOLOGICAL/ONCOLOGICAL Hx Blood Disorders: No Hx Human Immunodeficiency Virus (HIV): No - INTEGUMENTARY Hx Eczema: Yes - MUSCULOSKELETAL/RHEUMATOLOGICAL Hx Falls: No - GASTROINTESTINAL Hx Gastrointestinal Disorders: No Hx Liver Failure: (liver problems) - GENITOURINARY/GYNECOLOGICAL Hx Genitourinary Disorders: No Hx Sexually Transmitted Disorders: No - PSYCHIATRIC Hx Anxiety: Yes Hx Substance Use: No - SURGICAL HISTORY Hx Surgeries: Yes Hx Section: Yes Hx Orthopedic Surgery: Yes - ANESTHESIA Hx Anesthesia: Yes Hx Anesthesia Reactions: No Hx Malignant Hyperthermia: No Meds Allergies/Adverse Reactions: Allergies Allergy/AdvReac Type Severity Reaction Status Date / Time No Known Allergies Allergy Verified 10/13/16 04:36 - Medications Medications: Current Medications Albuterol/Ipratropium (Duoneb 3 Mg/0.5 Mg (3 Ml) Ud) 3 ml INH RQ6 [facility] Last Admin: 10/26/16 13:31 Dose: 3 ml Budesonide (Pulmicort Respules) 0.5 mg INH RQ12 [facility] Last Admin: 10/26/16 07:48 Dose: 0.5 mg Diphenhydramine HCl (Benadryl) 25 mg PO HS PRN PRN Reason: Insomnia Last Admin: 10/25/16 22:46 Dose: 25 mg Epoetin Sean (Procrit) 2,000 u SC TTS [facility] Last Admin: 10/26/16 15:16 Dose: 2,000 u Epoetin Sean (Procrit) 3,000 unit SC TTS [facility] Last Admin: 10/26/16 15:17 Dose: 3,000 unit Ferric Sodium Gluconate Complex (Ferrlecit) 125 mg IVPB DAILY [facility] Stop: 10/29/16 10:01 Last Admin: 10/26/16 10:55 Dose: 125 mg Folic Acid (Folic Acid) 1 mg PO DAILY [facility] Last Admin: 10/26/16 13:46 Dose: 1 mg Furosemide (Lasix) 40 mg IVP DAILY [facility] Last Admin: 10/26/16 10:01 Dose: 40 mg Gabapentin (Neurontin) 300 mg PO TID [facility] Last Admin: 10/26/16 17:20 Dose: 300 mg Gabapentin (Neurontin) 600 mg PO HS [facility] Guaifenesin (Mucinex La) 600 mg PO BID [facility] Last Admin: 10/26/16 17:20 Dose: 600 mg Meropenem 1 gm/ Sodium (Chloride) 100 mls @ 100 mls/hr IVPB Q8H [facility] Last Admin: 10/26/16 13:44 Dose: 100 mls/hr Lidocaine (Lidoderm) 2 ea TD DAILY [facility] Last Admin: 10/26/16 10:02 Dose: Not Given Lorazepam (Ativan) 0.5 mg PO Q6H PRN PRN Reason: Anxiety Morphine Sulfate (Morphine) 2 mg IV Q6 PRN PRN Reason: Pain, moderate (4-7) Last Admin: 10/26/16 17:20 Dose: 2 mg Pantoprazole Sodium (Protonix Inj) 40 mg IVP DAILY [facility] Last Admin: 10/26/16 10:03 Dose: 40 mg Potassium Chloride (K-Dur 20 Meq Er Tab) 20 meq PO DAILY [facility] Last Admin: 10/26/16 10:00 Dose: 20 meq Prednisone (Prednisone Tab) 20 mg PO DAILY [facility] Last Admin: 10/26/16 10:02 Dose: 20 mg Rifaximin (Xifaxan) 550 mg PO BID [facility] Last Admin: 10/26/16 17:20 Dose: 550 mg Spironolactone (Aldactone) 50 mg PO DAILY [facility] Last Admin: 10/26/16 10:00 Dose: 50 mg Trazodone HCl (Desyrel) 50 mg PO [facility] Physical Exam - Head Exam Head Exam: ATRAUMATIC - Eye Exam Eye Exam: Normal appearance - ENT Exam ENT Exam: Mucous Membranes Dry - Respiratory Exam Respiratory Exam: NORMAL BREATHING PATTERN - Cardiovascular Exam Cardiovascular Exam: +S1, +S2 - GI/Abdominal Exam GI & Abdominal Exam: Normal Bowel Sounds - Extremities Exam Extremities exam: Positive for: pedal edema Results - Vital Signs Recent Vital Signs: Last Vital Signs Temp 99.4 F 10/26/16 16:00 Pulse 123 H 10/26/16 16:00 Resp 20 10/26/16 16:00 BP 127/77 10/26/16 16:00 Pulse Ox 92 L 10/26/16 16:00 - Labs Result Diagrams: 10/26/16 06:35 10/26/16 06:35 Labs: Laboratory Results - last 24 hr 10/26/16 10/26/16 10/26/16 06:35 06:35 06:35 WBC 41.9 H* RBC 2.30 L Hgb 7.7 L Hct 25.1 L MCV 109.3 H MCH 33.3 H MCHC 30.5 L RDW 18.2 H Plt Count 446 H MPV 9.8 Neut % (Auto) 91.6 H Lymph % (Auto) 5.3 L Knox % (Auto) 1.9 Eos % (Auto) 0.6 Baso % (Auto) 0.6 Neut # 38.4 H Lymph # 2.2 Knox # 0.8 Eos # 0.3 Baso # 0.3 H Neutrophils % (Manual) 72 Band Neutrophils % 21 H* Lymphocytes % (Manual) 4 L Monocytes % (Manual) 3 Toxic Granulation Present Platelet Estimate Slightly increased H Poikilocytosis (manual Slight Anisocytosis (manual) Slight Target Cells Slight Sodium 137 Potassium 4.2 Chloride 97 L Carbon Dioxide 26 Anion Gap 18 BUN 13 Creatinine 0.6 L Est GFR ( Amer) > 60 Est GFR (Non-Af Amer) > 60 Random Glucose 86 Calcium 8.0 L Iron 36 L TIBC 157 L % Saturation 23 Total Bilirubin 8.1 H AST 129 H ALT 60 H Alkaline Phosphatase 188 H Total Protein 6.7 Albumin 3.1 L Globulin 3.6 Albumin/Globulin Ratio 0.9 L Assessment & Plan (1) Leukocytosis Assessment and Plan: predominant neutrophilia ?was on steroids slowly downtrending with antibiotics will cont. to monitor Status: Acute (2) Anemia Assessment and Plan: will check ferritin, retic count, b12, folate, FOBT to further characterize Status: Acute (3) Coagulopathy Assessment and Plan: liver disease Thank you for this interesting consult. Status: Acute
--- NOTE | 2016-10-26 18:26 | CP.PCM.PN ---
Subjective - Date & Time of Evaluation Date of Evaluation: 10/26/16 Time of Evaluation: 10:00 - Subjective Subjective: discussed o rounds Has ESBL gram neg pneumonia will need 21 more days IV rx Objective - Vital Signs/Intake and Output Vital Signs (last 24 hours): Temp Pulse Resp BP Pulse Ox 99.4 F 123 H 20 127/77 92 L 10/26/16 16:00 10/26/16 16:00 10/26/16 16:00 10/26/16 16:00 10/26/16 16:00 Intake and Output: 10/26/16 10/26/16 06:59 18:59 Intake Total 900 910 Output Total 400 0 Balance 500 910 - Medications Medications: Current Medications Albuterol/Ipratropium (Duoneb 3 Mg/0.5 Mg (3 Ml) Ud) 3 ml INH RQ6 [facility] Last Admin: 10/26/16 13:31 Dose: 3 ml Budesonide (Pulmicort Respules) 0.5 mg INH RQ12 [facility] Last Admin: 10/26/16 07:48 Dose: 0.5 mg Diphenhydramine HCl (Benadryl) 25 mg PO HS PRN PRN Reason: Insomnia Last Admin: 10/25/16 22:46 Dose: 25 mg Epoetin Sean (Procrit) 2,000 u SC TTS [facility] Last Admin: 10/26/16 15:16 Dose: 2,000 u Epoetin Sean (Procrit) 3,000 unit SC TTS [facility] Last Admin: 10/26/16 15:17 Dose: 3,000 unit Ferric Sodium Gluconate Complex (Ferrlecit) 125 mg IVPB DAILY [facility] Stop: 10/29/16 10:01 Last Admin: 10/26/16 10:55 Dose: 125 mg Folic Acid (Folic Acid) 1 mg PO DAILY [facility] Last Admin: 10/26/16 13:46 Dose: 1 mg Furosemide (Lasix) 40 mg IVP DAILY [facility] Last Admin: 10/26/16 10:01 Dose: 40 mg Gabapentin (Neurontin) 300 mg PO TID [facility] Last Admin: 10/26/16 17:20 Dose: 300 mg Gabapentin (Neurontin) 600 mg PO HS [facility] Guaifenesin (Mucinex La) 600 mg PO BID [facility] Last Admin: 10/26/16 17:20 Dose: 600 mg Meropenem 1 gm/ Sodium (Chloride) 100 mls @ 100 mls/hr IVPB Q8H [facility] Last Admin: 10/26/16 13:44 Dose: 100 mls/hr Lidocaine (Lidoderm) 2 ea TD DAILY [facility] Last Admin: 10/26/16 10:02 Dose: Not Given Lorazepam (Ativan) 0.5 mg PO Q6H PRN PRN Reason: Anxiety Morphine Sulfate (Morphine) 2 mg IV Q6 PRN PRN Reason: Pain, moderate (4-7) Last Admin: 10/26/16 17:20 Dose: 2 mg Pantoprazole Sodium (Protonix Inj) 40 mg IVP DAILY [facility] Last Admin: 10/26/16 10:03 Dose: 40 mg Potassium Chloride (K-Dur 20 Meq Er Tab) 20 meq PO DAILY [facility] Last Admin: 10/26/16 10:00 Dose: 20 meq Prednisone (Prednisone Tab) 20 mg PO DAILY [facility] Last Admin: 10/26/16 10:02 Dose: 20 mg Rifaximin (Xifaxan) 550 mg PO BID [facility] Last Admin: 10/26/16 17:20 Dose: 550 mg Spironolactone (Aldactone) 50 mg PO DAILY [facility] Last Admin: 10/26/16 10:00 Dose: 50 mg Trazodone HCl (Desyrel) 50 mg PO HS [facility] - Labs Labs: 10/26/16 06:35 10/26/16 06:35 PT 16.9 SECONDS (9.7-12.2) H 10/24/16 14:07 INR 1.5 10/24/16 14:07 APTT 44 SECONDS (21-34) H 10/24/16 14:07 - Constitutional Appears: Non-toxic, Chronically Ill - Head Exam Head Exam: NORMOCEPHALIC - Eye Exam Eye Exam: Scleral icterus - ENT Exam ENT Exam: Mucous Membranes Dry - Neck Exam Neck Exam: absent: Lymphadenopathy - Respiratory Exam Respiratory Exam: Decreased Breath Sounds, Rhonchi - Cardiovascular Exam Cardiovascular Exam: REGULAR RHYTHM, +S1, +S2 - GI/Abdominal Exam GI & Abdominal Exam: Distended, Soft Assessment and Plan (1) Liver failure Status: Chronic (2) Sepsis Status: Acute (3) Hepatic encephalopathy Status: Acute (4) Seizure Status: Acute
[2016-10-27] MEDS: Albuterol-Ipratrop 3 mg / 0.5 (3 ml) UD INH SCH ×4 (01:18→19:43)
[2016-10-27] MEDS: Meropenem 1 GM in Sodium Chloride 0.9% 100 ML IVPB SCH ×3 (04:14→21:34)
[2016-10-27] MEDS: Budesonide 0.5 mg/2 ml Inhal Susp UD INH SCH ×2 (07:24→19:43)
[2016-10-27 08:26] LABS: BASO # 0.2 K/uL (0.0-0.2); BASO % 0.5 % (0.0-2.0); EOS # 0.5 K/uL (0.0-0.7); EOS % 1.1 % (0.0-4.0); LYMPH % 4.7 % (20.0-40.0); MEAN CELL VOLUME 109.5 fL (81.0-99.0); MEAN CORPUSCULAR HEMOGLOBIN 33.1 pg (27.0-31.0); MEAN CORPUSCULAR HGB CONC 30.3 g/dL (33.0-37.0); MEAN PLATELET VOLUME 9.5 fL (7.2-11.7); MONO # 0.4 K/uL (0.0-0.8); NRBC % 0.1 % (0.0-2.0); PLATELET COUNT 481 K/uL (130-400)
[2016-10-27 08:30] LABS: WHITE BLOOD COUNT 42.9 K/uL (4.8-10.8)
[2016-10-27 08:43] LABS: CHLORIDE 96 mmol/L (98-107); SODIUM 135 mmol/L (132-148)
[2016-10-27 08:44] LABS: POTASSIUM 4.2 mmol/L (3.6-5.2)
[2016-10-27 08:46] LABS: ALB/GLOB RATIO 0.9 (1.0-2.1); ALKALINE PHOSPHATASE 188 U/L (38-126); ALT/SGPT 58 U/L (9-52); AST/SGOT 125 U/L (14-36); BILIRUBIN,TOTAL 8.2 mg/dL (0.2-1.3); BLOOD UREA NITROGEN 13 mg/dL (7-17); CARBON DIOXIDE 24 mmol/L (22-30); GFR AFRICAN-AMERICAN > 60; GLUCOSE,RANDOM 117 mg/dL (65-105); TOTAL PROTEIN 6.9 g/dL (6.3-8.3)
[2016-10-27 08:47] LABS: CALCIUM 8.2 mg/dl (8.6-10.4)
[2016-10-27 09:40] LABS: EOSINOPHIL 2 % (0-4); NEUTROPHIL 70 % (50-75); TOTAL CELLS COUNTED 100
[2016-10-27 09:46] LABS: FOLATE 7.1 ng/mL
[2016-10-27] MEDS: guaiFENesin 600 mg ER Tab PO SCH ×2 (10:10→19:00)
[2016-10-27] MEDS: Potassium Chloride 20 mEq ER Tab PO SCH (10:11)
--- NOTE | 2016-10-27 10:12 | RAD ---
HISTORY: verify right PICC COMPARISON: Comparison is made to the previous study dated 10/25/2016 FINDINGS: LUNGS: No significant interval change in the lungs noted since the previous exam PLEURA: Re- demonstration of moderate right pleural effusion CARDIOVASCULAR: The cardiac silhouette is not enlarged. OSSEOUS STRUCTURES: No significant abnormalities. VISUALIZED UPPER ABDOMEN: Normal. OTHER FINDINGS: Right-sided PICC line is seen at appropriate position IMPRESSION: Appropriate position of the right-sided PICC line with the tip is seen at the SVC right atrium junction. No significant interval change otherwise since the previous exam.
--- NOTE | 2016-10-27 10:16 | CP.PCM.PN ---
Subjective - Date & Time of Evaluation Date of Evaluation: 10/27/16 Time of Evaluation: 07:00 - Subjective Subjective: Medicine Progress Note- Dr. Becerril's Service: Patient seen and examined at bedside this AM. Patient reports no issues this morning. She has minimal pain and is sitting at side of bed. Patient for PICC this AM for continued antibiotics. Patient will need 3 week of antibiotics. Objective - Vital Signs/Intake and Output Vital Signs (last 24 hours): Temp Pulse Resp BP Pulse Ox 98.8 F 110 H 20 130/74 97 10/27/16 08:00 10/27/16 08:00 10/27/16 08:00 10/27/16 08:00 10/27/16 08:00 Intake and Output: 10/27/16 10/27/16 06:59 18:59 Intake Total 400 500 Balance 400 500 - Medications Medications: Current Medications Albuterol/Ipratropium (Duoneb 3 Mg/0.5 Mg (3 Ml) Ud) 3 ml INH RQ6 [facility] Last Admin: 10/27/16 07:24 Dose: 3 ml Budesonide (Pulmicort Respules) 0.5 mg INH RQ12 [facility] Last Admin: 10/27/16 07:24 Dose: 0.5 mg Diphenhydramine HCl (Benadryl) 25 mg PO HS PRN PRN Reason: Insomnia Last Admin: 10/27/16 01:30 Dose: 25 mg Epoetin Sean (Procrit) 2,000 u SC TTS [facility] Last Admin: 10/26/16 15:16 Dose: 2,000 u Epoetin Sean (Procrit) 3,000 unit SC TTS [facility] Last Admin: 10/26/16 15:17 Dose: 3,000 unit Ferric Sodium Gluconate Complex (Ferrlecit) 125 mg IVPB DAILY [facility] Stop: 10/29/16 10:01 Last Admin: 10/26/16 10:55 Dose: 125 mg Folic Acid (Folic Acid) 1 mg PO DAILY [facility] Last Admin: 10/26/16 13:46 Dose: 1 mg Furosemide (Lasix) 40 mg IVP DAILY [facility] Last Admin: 10/26/16 10:01 Dose: 40 mg Gabapentin (Neurontin) 300 mg PO TID [facility] Last Admin: 10/26/16 17:20 Dose: 300 mg Gabapentin (Neurontin) 600 mg PO HS [facility] Last Admin: 10/26/16 21:46 Dose: 600 mg Guaifenesin (Mucinex La) 600 mg PO BID [facility] Last Admin: 10/26/16 17:20 Dose: 600 mg Meropenem 1 gm/ Sodium (Chloride) 100 mls @ 100 mls/hr IVPB Q8H [facility] Last Admin: 10/27/16 04:14 Dose: 100 mls/hr Lidocaine (Lidoderm) 2 ea TD DAILY [facility] Last Admin: 10/26/16 10:02 Dose: Not Given Lorazepam (Ativan) 0.5 mg PO Q6H PRN PRN Reason: Anxiety Morphine Sulfate (Morphine) 2 mg IVP Q6 PRN PRN Reason: Pain, moderate (4-7) Last Admin: 10/27/16 06:44 Dose: 2 mg Pantoprazole Sodium (Protonix Inj) 40 mg IVP DAILY [facility] Last Admin: 10/26/16 10:03 Dose: 40 mg Potassium Chloride (K-Dur 20 Meq Er Tab) 20 meq PO DAILY [facility] Last Admin: 10/26/16 10:00 Dose: 20 meq Prednisone (Prednisone Tab) 20 mg PO DAILY [facility] Last Admin: 10/26/16 10:02 Dose: 20 mg Rifaximin (Xifaxan) 550 mg PO BID [facility] Last Admin: 10/26/16 17:20 Dose: 550 mg Spironolactone (Aldactone) 50 mg PO DAILY [facility] Last Admin: 10/26/16 10:00 Dose: 50 mg Trazodone HCl (Desyrel) 50 mg PO [facility] Last Admin: 10/26/16 21:46 Dose: 50 mg - Labs Labs: 10/27/16 08:17 10/27/16 08:17 PT 16.9 SECONDS (9.7-12.2) H 10/24/16 14:07 INR 1.5 10/24/16 14:07 APTT 44 SECONDS (21-34) H 10/24/16 14:07 - Constitutional Appears: No Acute Distress - Head Exam Head Exam: NORMAL INSPECTION, NORMOCEPHALIC - Eye Exam Eye Exam: EOMI, Normal appearance - ENT Exam ENT Exam: Mucous Membranes Moist - Neck Exam Neck Exam: Full ROM, Normal Inspection - Respiratory Exam Respiratory Exam: Clear to Ausculation Bilateral, NORMAL BREATHING PATTERN - Cardiovascular Exam Cardiovascular Exam: REGULAR RHYTHM, +S1, +S2 - GI/Abdominal Exam GI & Abdominal Exam: Soft. absent: Distended, Tenderness - Extremities Exam Extremities Exam: Full ROM, Normal Inspection - Neurological Exam Neurological Exam: Alert, Awake, Oriented x3 - Psychiatric Exam Psychiatric exam: Normal Affect, Normal Mood - Skin Skin Exam: Dry, Normal Color, Warm Assessment and Plan - Assessment and Plan (Free Text) Assessment: (1) Leukocytosis Assessment & Plan: CODE SEPSIS (10/13/16) WBC downtrending; 41.9 today, left shift w. 21 bands Criteria on admission: Leukocytosis 60.5, Tachycardic, Tachypnic Dr. Velazquez, ID consult: help appreciated Sputum Cx (10/22/16): +ESBL Meropenem IVPB Patient will need 3 weeks of antibiotics. Sputum Cx (10/14/16): Klebsiella Pneumoniae - Continue Avelox 400mg IV Daily - DAY 8 started on 10/16 - Continue Prednisone 20mg PO Daily - Continue Rifaximin 550mg PO BID Dr. Velazquez notified about ESBL Cx. ID to change antibiotics. Cdiff (10/13/16): negative Blood cx (10/13/16): no growth for 5 days x 2 Urine cx (10/13/16): no growth MRSA screen (10/13/16): not detected Status: Acute (2) Pleural effusion Assessment & Plan: 10/24 Chest Xray shows Large loculated right pleural effusion with adjacent airspace consolidation. Venous congestion. s/p IR thoracentesis 10/24/16 with 600 cc removed. Patient had IR thoracentesis (10/17/16) with 500cc removed. Cytology studies: Transudative effusion, elevated neutrophils and lymphocytes Sputum Cx (10/22/16): +ESBL. Patient placed on contact precautions Sputum culture (10/14/16): Klebsiella pneumoniae - DC Maxipime 1gm Q12H IV - DC Avelox 400mg IV CT A/P (10/15/16): RLL consolidation and pleural effusion. Mild left lung atelectasis. 6mm left lower lobe pulm nodule (should have repeat CT in 3-12 months based on malignancy risk). (see full report) CXR (10/16/16): moderate to large rt pleural effusion with consolidative changes in rt mid-lower lung zone. Venous congestion. Upper lobe granulomatous changes. Scattered nodularity in upper lung zones. Cardiomegaly. (see full report) CT Chest (10/16/16): Moderate to large right pleural effusion. Complete consolidation of right lower lobe and partial collapse/consolidation of of right middle lobe. Ground glass opacities. Cardiomegaly. (see full report) Status: Acute (3) Anemia Hgb 8.2 this AM Iron 36. Ferrilicit IVPB Procrit TTS stool OB negative 4) Seizure Assessment & Plan: Hepatic Encephalopathy on presentation. Currently resolved. Mentating without difficulty Gabapentin 300mg PO BID Ativan 0.5mg IVP PRN shakiness/anxiety Status: Acute (4) Liver failure Assessment & Plan: Secondary to alcoholic hepatitis w. decompensated liver failure Hyperammonemia on admission. 10/23/16 Ammonia 29. Lactulose D/C 10/25/16. LFTs and Alk phos are elevated secondary to alcohol abuse - Spirinolactone 50mg Daily - Rifaximin 550mg PO BID - Lasix 20mg IV daily Status: Chronic (5) Alcohol dependence Assessment & Plan: Hx of Benzo/Alcohol Abuse - UDS negative Status: Chronic (6) Asthma Assessment & Plan: O2 saturation: 98% on Room Air - Pulmicort Respules 0.5mg Q12H substituted for home Advair - Duonebs Q6H [facility] Status: Chronic (7) Anxiety Assessment & Plan: Detox for anxiety/xanax in October of 2015 Psych consult: Dr. Smith, help appreciated -Ativan taper -Gabapentin 300mg PO TID, 400mg PO HS -CBT and supportive therapy Status: Chronic (8) Back pain Assessment & Plan: Pt reports history of 'herniated discs' Lidoderm patch Morphine 2mg IV q6h prn PT/OT eval ordered 10/23/16 Status: Chronic (9) Prophylactic measure Assessment & Plan: DVT: SCDs VTE: Heparin 5000 units q12h GI: Protonix IV daily PT ordered. Status: Acute DISCHARGE planning as per Dr. Becerril. Management as per Dr. Becerril.
[2016-10-27] MEDS: Lidocaine 5% Patch TD SCH (10:24)
[2016-10-27] MEDS: Ferric Sodium Gluconat Complex 62.5 mg/5 ml Vial IVPB SCH (11:09)
--- NOTE | 2016-10-27 18:06 | CP.PCM.PN ---
Subjective - Date & Time of Evaluation Date of Evaluation: 10/27/16 Time of Evaluation: 07:00 - Subjective Subjective: wbc trending down IV rx to be continued in group home Objective - Vital Signs/Intake and Output Vital Signs (last 24 hours): Temp Pulse Resp BP Pulse Ox 98.8 F 110 H 20 130/74 97 10/27/16 08:00 10/27/16 08:00 10/27/16 08:00 10/27/16 10:14 10/27/16 08:00 Intake and Output: 10/27/16 10/27/16 06:59 18:59 Intake Total 400 1500 Balance 400 1500 - Medications Medications: Current Medications Albuterol/Ipratropium (Duoneb 3 Mg/0.5 Mg (3 Ml) Ud) 3 ml INH RQ6 [facility] Last Admin: 10/27/16 13:29 Dose: 3 ml Budesonide (Pulmicort Respules) 0.5 mg INH RQ12 [facility] Last Admin: 10/27/16 07:24 Dose: 0.5 mg Diphenhydramine HCl (Benadryl) 25 mg PO HS PRN PRN Reason: Insomnia Last Admin: 10/27/16 01:30 Dose: 25 mg Epoetin Sean (Procrit) 2,000 u SC TTS [facility] Last Admin: 10/26/16 15:16 Dose: 2,000 u Epoetin Sean (Procrit) 3,000 unit SC TTS [facility] Last Admin: 10/26/16 15:17 Dose: 3,000 unit Ferric Sodium Gluconate Complex (Ferrlecit) 125 mg IVPB DAILY [facility] Stop: 10/29/16 10:01 Last Admin: 10/27/16 11:09 Dose: 125 mg Folic Acid (Folic Acid) 1 mg PO DAILY [facility] Last Admin: 10/27/16 10:11 Dose: 1 mg Furosemide (Lasix) 40 mg IVP DAILY [facility] Last Admin: 10/27/16 10:14 Dose: 40 mg Gabapentin (Neurontin) 300 mg PO TID [facility] Last Admin: 10/27/16 14:15 Dose: 300 mg Gabapentin (Neurontin) 600 mg PO HS [facility] Last Admin: 10/26/16 21:46 Dose: 600 mg Guaifenesin (Mucinex La) 600 mg PO BID [facility] Last Admin: 10/27/16 10:10 Dose: 600 mg Meropenem 1 gm/ Sodium (Chloride) 100 mls @ 100 mls/hr IVPB Q8H [facility] Last Admin: 10/27/16 12:47 Dose: 100 mls/hr Lidocaine (Lidoderm) 2 ea TD DAILY [facility] Last Admin: 10/27/16 10:24 Dose: Not Given Lorazepam (Ativan) 0.5 mg PO Q6H PRN PRN Reason: Anxiety Morphine Sulfate (Morphine) 2 mg IVP Q6 PRN PRN Reason: Pain, moderate (4-7) Last Admin: 10/27/16 12:56 Dose: 2 mg Pantoprazole Sodium (Protonix Inj) 40 mg IVP DAILY [facility] Last Admin: 10/27/16 10:14 Dose: 40 mg Potassium Chloride (K-Dur 20 Meq Er Tab) 20 meq PO DAILY [facility] Last Admin: 10/27/16 10:11 Dose: 20 meq Prednisone (Prednisone Tab) 20 mg PO DAILY [facility] Last Admin: 10/27/16 10:10 Dose: 20 mg Rifaximin (Xifaxan) 550 mg PO BID [facility] Last Admin: 10/26/16 17:20 Dose: 550 mg Spironolactone (Aldactone) 50 mg PO DAILY [facility] Last Admin: 10/27/16 10:11 Dose: 50 mg Trazodone HCl (Desyrel) 50 mg PO HS [facility] Last Admin: 10/26/16 21:46 Dose: 50 mg - Labs Labs: 10/27/16 08:17 10/27/16 08:17 PT 16.9 SECONDS (9.7-12.2) H 10/24/16 14:07 INR 1.5 10/24/16 14:07 APTT 44 SECONDS (21-34) H 10/24/16 14:07 - Constitutional Appears: Non-toxic, Cachectic, Chronically Ill - Head Exam Head Exam: NORMOCEPHALIC - Eye Exam Eye Exam: Scleral icterus - ENT Exam ENT Exam: Mucous Membranes Dry - Neck Exam Neck Exam: absent: Lymphadenopathy - Respiratory Exam Respiratory Exam: Rhonchi. absent: Chest Wall Tenderness - Cardiovascular Exam Cardiovascular Exam: REGULAR RHYTHM, +S1, +S2 - GI/Abdominal Exam GI & Abdominal Exam: Distended, Soft. absent: Tenderness - Rectal Exam Rectal Exam: Deferred Assessment and Plan (1) Liver failure Status: Chronic (2) Sepsis Status: Acute (3) Hepatic encephalopathy Status: Acute (4) Seizure Status: Acute
[2016-10-28] MEDS: Albuterol-Ipratrop 3 mg / 0.5 (3 ml) UD INH SCH ×2 (01:54→08:39)
[2016-10-28] MEDS: Meropenem 1 GM in Sodium Chloride 0.9% 100 ML IVPB SCH ×3 (04:13→20:38)
[2016-10-28 06:44] LABS: BASO # 0.4 K/uL (0.0-0.2); BASO % 0.8 % (0.0-2.0); EOS # 0.2 K/uL (0.0-0.7); EOS % 0.4 % (0.0-4.0); HEMATOCRIT 25.5 % (34.0-47.0); LYMPH % 6.8 % (20.0-40.0); MEAN CORPUSCULAR HEMOGLOBIN 33.8 pg (27.0-31.0); MEAN CORPUSCULAR HGB CONC 30.4 g/dL (33.0-37.0); MEAN PLATELET VOLUME 10.2 fL (7.2-11.7); MONO # 0.9 K/uL (0.0-0.8); MONO % 2.1 % (0.0-10.0); NRBC % 0.2 % (0.0-2.0); PLATELET COUNT 492 K/uL (130-400); RED CELL DISTRIBUTION WIDTH 18.4 % (11.5-14.5)
[2016-10-28 06:49] LABS: WHITE BLOOD COUNT 43.7 K/uL (4.8-10.8)
[2016-10-28 06:59] LABS: CHLORIDE 94 mmol/L (98-107); POTASSIUM 4.2 mmol/L (3.6-5.2); SODIUM 135 mmol/L (132-148)
[2016-10-28 07:01] LABS: AST/SGOT 132 U/L (14-36); BILIRUBIN,TOTAL 7.2 mg/dL (0.2-1.3); CARBON DIOXIDE 28 mmol/L (22-30); GFR AFRICAN-AMERICAN > 60
[2016-10-28 07:02] LABS: ALB/GLOB RATIO 0.9 (1.0-2.1); ALKALINE PHOSPHATASE 234 U/L (38-126); ALT/SGPT 63 U/L (9-52); BLOOD UREA NITROGEN 14 mg/dL (7-17); CALCIUM 7.9 mg/dl (8.6-10.4); GLUCOSE,RANDOM 65 mg/dL (65-105); TOTAL PROTEIN 6.8 g/dL (6.3-8.3)
[2016-10-28] MEDS: Budesonide 0.5 mg/2 ml Inhal Susp UD INH SCH ×2 (08:38→20:26)
[2016-10-28] MEDS: Potassium Chloride 20 mEq ER Tab PO SCH (09:00)
[2016-10-28] MEDS: guaiFENesin 600 mg ER Tab PO SCH ×2 (09:00→17:58)
[2016-10-28 09:11] LABS: EOSINOPHIL 3 % (0-4); TOTAL CELLS COUNTED 100
[2016-10-28 09:12] LABS: NEUTROPHIL 73 % (50-75)
[2016-10-28 09:13] LABS: STOMATOCYTES SLIGHT
[2016-10-28 09:14] LABS: LARGE PLATELETS PRESENT
[2016-10-28] MEDS: Epoetin Alfa 3000 UNIT/ML Inj SC SCH (11:18)
[2016-10-28] MEDS: [UNRECOGNIZED DRUG - OTHER] SC SCH (11:18)
[2016-10-28] MEDS: Ferric Sodium Gluconat Complex 62.5 mg/5 ml Vial IVPB SCH (11:18)
[2016-10-28] MEDS: Lidocaine 5% Patch TD SCH (11:20)
--- NOTE | 2016-10-29 01:22 | CP.PCM.PN ---
Subjective - Date & Time of Evaluation Date of Evaluation: 10/28/16 Time of Evaluation: 17:00 - Subjective Subjective: No complaints. Objective - Vital Signs/Intake and Output Vital Signs (last 24 hours): Temp Pulse Resp BP Pulse Ox 98 F 114 H 19 128/81 95 10/28/16 23:15 10/28/16 23:15 10/28/16 23:15 10/28/16 23:15 10/28/16 23:15 Intake and Output: 10/28/16 10/29/16 18:59 06:59 Intake Total 400 Balance 400 - Medications Medications: Current Medications Diphenhydramine HCl (Benadryl) 25 mg PO HS PRN PRN Reason: Insomnia Last Admin: 10/27/16 01:30 Dose: 25 mg Epoetin Sean (Procrit) 2,000 u SC TTS [facility] Last Admin: 10/28/16 11:18 Dose: 2,000 u Epoetin Sean (Procrit) 3,000 unit SC TTS [facility] Last Admin: 10/28/16 11:18 Dose: 3,000 unit Ferric Sodium Gluconate Complex (Ferrlecit) 125 mg IVPB DAILY [facility] Stop: 10/29/16 10:01 Last Admin: 10/28/16 11:18 Dose: 125 mg Folic Acid (Folic Acid) 1 mg PO DAILY [facility] Last Admin: 10/28/16 09:00 Dose: 1 mg Furosemide (Lasix) 40 mg IVP DAILY [facility] Gabapentin (Neurontin) 300 mg PO TID [facility] Last Admin: 10/28/16 17:58 Dose: 300 mg Gabapentin (Neurontin) 600 mg PO HS [facility] Last Admin: 10/28/16 21:56 Dose: 600 mg Guaifenesin (Mucinex La) 600 mg PO BID [facility] Last Admin: 10/28/16 17:58 Dose: 600 mg Meropenem 1 gm/ Sodium (Chloride) 100 mls @ 100 mls/hr IVPB Q8H [facility] Last Admin: 10/28/16 20:38 Dose: 100 mls/hr Lidocaine (Lidoderm) 2 ea TD DAILY [facility] Last Admin: 10/28/16 11:20 Dose: Not Given Lorazepam (Ativan) 0.5 mg PO Q6H PRN PRN Reason: Anxiety Morphine Sulfate (Morphine) 2 mg IVP Q6 PRN PRN Reason: Pain, moderate (4-7) Last Admin: 10/28/16 20:45 Dose: 2 mg Pantoprazole Sodium (Protonix Inj) 40 mg IVP DAILY [facility] Last Admin: 10/28/16 09:00 Dose: 40 mg Potassium Chloride (K-Dur 20 Meq Er Tab) 20 meq PO DAILY [facility] Last Admin: 10/28/16 09:00 Dose: 20 meq Prednisone (Prednisone Tab) 20 mg PO DAILY [facility] Last Admin: 10/28/16 09:00 Dose: 20 mg Rifaximin (Xifaxan) 550 mg PO BID [facility] Last Admin: 10/28/16 18:01 Dose: 550 mg Trazodone HCl (Desyrel) 50 mg PO HS [facility] Last Admin: 10/28/16 21:56 Dose: 50 mg - Labs Labs: 10/28/16 06:33 10/28/16 06:33 PT 16.9 SECONDS (9.7-12.2) H 10/24/16 14:07 INR 1.5 10/24/16 14:07 APTT 44 SECONDS (21-34) H 10/24/16 14:07 - Head Exam Head Exam: ATRAUMATIC - Eye Exam Eye Exam: Normal appearance - ENT Exam ENT Exam: Mucous Membranes Dry - Respiratory Exam Respiratory Exam: NORMAL BREATHING PATTERN - Cardiovascular Exam Cardiovascular Exam: +S1, +S2 - GI/Abdominal Exam GI & Abdominal Exam: Normal Bowel Sounds - Extremities Exam Extremities Exam: Normal Inspection Assessment and Plan (1) Leukocytosis Assessment & Plan: predominant neutrophilia on antibiotivs Status: Acute (2) Anemia Status: Acute (3) Coagulopathy Status: Acute
[2016-10-29] MEDS: Meropenem 1 GM in Sodium Chloride 0.9% 100 ML IVPB SCH ×3 (05:19→21:09)
[2016-10-29 07:07] LABS: BASO # 0.5 K/uL (0.0-0.2); EOS # 0.4 K/uL (0.0-0.7); EOS % 0.9 % (0.0-4.0); HEMATOCRIT 25.9 % (34.0-47.0); LYMPH # 2.7 K/uL (1.0-4.3); LYMPH % 5.9 % (20.0-40.0); MEAN CELL VOLUME 111.2 fL (81.0-99.0); MEAN CORPUSCULAR HEMOGLOBIN 34.3 pg (27.0-31.0); MEAN CORPUSCULAR HGB CONC 30.8 g/dL (33.0-37.0); MEAN PLATELET VOLUME 9.7 fL (7.2-11.7); MONO # 1.2 K/uL (0.0-0.8); MONO % 2.5 % (0.0-10.0); NRBC % 0.2 % (0.0-2.0); PLATELET COUNT 538 K/uL (130-400); RED CELL DISTRIBUTION WIDTH 18.5 % (11.5-14.5)
[2016-10-29 07:12] LABS: WHITE BLOOD COUNT 46.4 K/uL (4.8-10.8)
[2016-10-29 07:22] LABS: CHLORIDE 94 mmol/L (98-107)
[2016-10-29 07:23] LABS: SODIUM 134 mmol/L (132-148)
[2016-10-29 07:24] LABS: POTASSIUM 4.5 mmol/L (3.6-5.2)
[2016-10-29 07:26] LABS: ALB/GLOB RATIO 0.9 (1.0-2.1); ALKALINE PHOSPHATASE 213 U/L (38-126); ALT/SGPT 69 U/L (9-52); AST/SGOT 148 U/L (14-36); BILIRUBIN,DIRECT 5.7 mg/dL (0.0-0.4); BLOOD UREA NITROGEN 13 mg/dL (7-17); CARBON DIOXIDE 26 mmol/L (22-30); GFR AFRICAN-AMERICAN > 60; GLUCOSE,RANDOM 70 mg/dL (65-105); TOTAL PROTEIN 6.9 g/dL (6.3-8.3)
[2016-10-29 07:27] LABS: CALCIUM 8.5 mg/dl (8.6-10.4)
[2016-10-29 08:20] LABS: EOSINOPHIL 1 % (0-4); NEUTROPHIL 75 % (50-75); TOTAL CELLS COUNTED 100
[2016-10-29 08:22] LABS: STOMATOCYTES SLIGHT
[2016-10-29 08:23] LABS: GIANT PLATELETS PRESENT; LARGE PLATELETS PRESENT; SPHEROCYTES SLIGHT
[2016-10-29] MEDS: guaiFENesin 600 mg ER Tab PO SCH ×2 (09:09→17:30)
[2016-10-29] MEDS: Potassium Chloride 20 mEq ER Tab PO SCH (09:09)
[2016-10-29] MEDS: Lidocaine 5% Patch TD SCH (09:11)
[2016-10-29] MEDS: Ferric Sodium Gluconat Complex 62.5 mg/5 ml Vial IVPB SCH (11:45)
[2016-10-29] MEDS: Albuterol-Ipratrop 3 mg / 0.5 (3 ml) UD INH SCH (20:11)
--- NOTE | 2016-10-29 21:50 | CP.PCM.PN ---
Subjective - Date & Time of Evaluation Date of Evaluation: 10/29/16 Time of Evaluation: 16:00 - Subjective Subjective: No complaints. Objective - Vital Signs/Intake and Output Vital Signs (last 24 hours): Temp Pulse Resp BP Pulse Ox 99.3 F 119 H 20 133/73 95 10/29/16 16:00 10/29/16 16:00 10/29/16 16:00 10/29/16 16:00 10/29/16 16:00 Intake and Output: 10/29/16 10/30/16 18:59 06:59 Intake Total 340 Balance 340 - Medications Medications: Current Medications Albuterol/Ipratropium (Duoneb 3 Mg/0.5 Mg (3 Ml) Ud) 3 ml INH RQ6 [facility] Last Admin: 10/29/16 20:11 Dose: 3 ml Diphenhydramine HCl (Benadryl) 25 mg PO HS PRN PRN Reason: Insomnia Last Admin: 10/27/16 01:30 Dose: 25 mg Epoetin Sean (Procrit) 2,000 u SC TTS [facility] Last Admin: 10/28/16 11:18 Dose: 2,000 u Epoetin Sean (Procrit) 3,000 unit SC TTS [facility] Last Admin: 10/28/16 11:18 Dose: 3,000 unit Folic Acid (Folic Acid) 1 mg PO DAILY [facility] Last Admin: 10/29/16 09:09 Dose: 1 mg Furosemide (Lasix) 40 mg IVP DAILY [facility] Last Admin: 10/29/16 09:21 Dose: 40 mg Gabapentin (Neurontin) 300 mg PO TID [facility] Last Admin: 10/29/16 17:30 Dose: 300 mg Gabapentin (Neurontin) 600 mg PO HS [facility] Last Admin: 10/29/16 21:08 Dose: 600 mg Guaifenesin (Mucinex La) 600 mg PO BID [facility] Last Admin: 10/29/16 17:30 Dose: 600 mg Meropenem 1 gm/ Sodium (Chloride) 100 mls @ 100 mls/hr IVPB Q8H [facility] Last Admin: 10/29/16 21:09 Dose: 100 mls/hr Lidocaine (Lidoderm) 2 ea TD DAILY [facility] Last Admin: 10/29/16 09:11 Dose: Not Given Lorazepam (Ativan) 0.5 mg PO Q6H PRN PRN Reason: Anxiety Morphine Sulfate (Morphine) 2 mg IVP Q6 PRN PRN Reason: Pain, moderate (4-7) Last Admin: 10/29/16 21:05 Dose: 2 mg Pantoprazole Sodium (Protonix Inj) 40 mg IVP DAILY [facility] Last Admin: 10/29/16 09:08 Dose: 40 mg Prednisone (Prednisone Tab) 20 mg PO DAILY [facility] Last Admin: 10/29/16 09:09 Dose: 20 mg Trazodone HCl (Desyrel) 50 mg PO HS [facility] Last Admin: 10/29/16 21:08 Dose: 50 mg - Labs Labs: 10/29/16 06:52 10/29/16 06:52 PT 16.9 SECONDS (9.7-12.2) H 10/24/16 14:07 INR 1.5 10/24/16 14:07 APTT 44 SECONDS (21-34) H 10/24/16 14:07 - Head Exam Head Exam: ATRAUMATIC - Eye Exam Eye Exam: Normal appearance - ENT Exam ENT Exam: Mucous Membranes Dry - Respiratory Exam Respiratory Exam: NORMAL BREATHING PATTERN - Cardiovascular Exam Cardiovascular Exam: +S1, +S2 - GI/Abdominal Exam GI & Abdominal Exam: Normal Bowel Sounds - Extremities Exam Extremities Exam: Normal Inspection Assessment and Plan (1) Leukocytosis Assessment & Plan: predominant neutrophilia with mild basophilia will send BCR/ABL to evaluate for CML Status: Acute (2) Anemia Assessment & Plan: improved Status: Acute (3) Coagulopathy Status: Acute
[2016-10-30] MEDS: Albuterol-Ipratrop 3 mg / 0.5 (3 ml) UD INH SCH ×4 (01:36→19:32)
[2016-10-30] MEDS: Meropenem 1 GM in Sodium Chloride 0.9% 100 ML IVPB SCH ×3 (05:30→20:56)
[2016-10-30 07:48] LABS: BASO # 0.4 K/uL (0.0-0.2); BASO % 0.8 % (0.0-2.0); EOS # 0.3 K/uL (0.0-0.7); EOS % 0.7 % (0.0-4.0); HEMATOCRIT 25.8 % (34.0-47.0); LYMPH # 3.9 K/uL (1.0-4.3); LYMPH % 8.7 % (20.0-40.0); MEAN CELL VOLUME 112.3 fL (81.0-99.0); MEAN CORPUSCULAR HEMOGLOBIN 34.1 pg (27.0-31.0); MEAN CORPUSCULAR HGB CONC 30.3 g/dL (33.0-37.0); MEAN PLATELET VOLUME 9.7 fL (7.2-11.7); MONO # 1.6 K/uL (0.0-0.8); MONO % 3.5 % (0.0-10.0); NRBC % 0.2 % (0.0-2.0); PLATELET COUNT 552 K/uL (130-400); RED CELL DISTRIBUTION WIDTH 18.8 % (11.5-14.5)
[2016-10-30 07:52] LABS: CHLORIDE 93 mmol/L (98-107); POTASSIUM 3.8 mmol/L (3.6-5.2); SODIUM 134 mmol/L (132-148)
[2016-10-30 07:54] LABS: ALB/GLOB RATIO 0.9 (1.0-2.1); AST/SGOT 149 U/L (14-36); BILIRUBIN,TOTAL 6.1 mg/dL (0.2-1.3); CARBON DIOXIDE 26 mmol/L (22-30); GFR AFRICAN-AMERICAN > 60; TOTAL PROTEIN 6.7 g/dL (6.3-8.3)
[2016-10-30 07:55] LABS: ALKALINE PHOSPHATASE 205 U/L (38-126); ALT/SGPT 70 U/L (9-52); BLOOD UREA NITROGEN 11 mg/dL (7-17); CALCIUM 8.3 mg/dl (8.6-10.4); GLUCOSE,RANDOM 107 mg/dL (65-105)
[2016-10-30 08:00] LABS: WHITE BLOOD COUNT 44.4 K/uL (4.8-10.8)
[2016-10-30] MEDS: guaiFENesin 600 mg ER Tab PO SCH ×2 (09:05→17:36)
[2016-10-30] MEDS: Lidocaine 5% Patch TD SCH (09:10)
[2016-10-30 11:11] LABS: EOSINOPHIL 3 % (0-4); NEUTROPHIL 85 % (50-75); TOTAL CELLS COUNTED 100
--- NOTE | 2016-10-30 12:30 | PCM.PYCHPN ---
Psychiatric Progress Note - Psychiatric Progress Note Patient seen today, length of contact: 15 min Patient Chief Complaint: "I have pain" Problems Identified/Issues Discussed: The patient is seen, chart reviewed and case discussed Somewhat better mood but still worried about her health and liver transplant Support given No wdw sxs but mild tremors Anxious but not suicidal-homicidal Medication Change: No Medical Record Reviewed: Yes Mental Status Examination - Cognitive Function Orientation: Person, Place, Situation, Time Memory: Intact Attention: WNL Concentration: WNL Association: WNL Fund of Knowledge: WNL - Mood Mood: Anxious - Affect Affect: Broad - Speech Speech: Appropriate, Soft - Formal Thought Process Formal Thought Process: No Impairment - Suicidal Ideation Suicidal Ideation: No - Homicidal Ideation Homicidal Ideation: No Goal/Treatment Plan - Goal/Treatment Plan Need for Continued Stay: Severe functional impairment, Other (medical tx) Progress Toward Problem(s) and Goals/Treatment Plan: Anxiety/tremors: -Gabapentin was increased -CBT and supportive therapy - consider Inderal low dose which helps both anxiety and tremors Benzodiazepines: -Ativan now prn -As needed meds -WI, CBT Alcohol: -WI for abstinence Psych will sign off now as she has improved Pls call if status changes
--- NOTE | 2016-10-30 13:18 | CP.PCM.PN ---
Subjective - Date & Time of Evaluation Date of Evaluation: 10/30/16 Time of Evaluation: 09:00 - Subjective Subjective: Medicine Progress Note- Dr. Becerril's Service: Patient seen and examined at bedside today. She is complaining of epigastric abdominal pain. Denies fevers, chills, nausea, vomiting. She is feeling down this morning. Psych saw patient during psych rounds. No other complaints at this time. Patient is to be discharged as per Dr. Becerril to [facility] for continued anitbiotics. However, as per case management insurance issues do not allow her to go. Patient could get home IV antibiotic infusions. Patient's IV infusions cannot be provided at a correction. Physical therapy recommending recommend home. Objective - Vital Signs/Intake and Output Vital Signs (last 24 hours): Temp Pulse Resp BP Pulse Ox 98.5 F 130 H 20 121/70 93 L 10/30/16 08:00 10/30/16 08:00 10/30/16 08:00 10/30/16 09:06 10/30/16 08:00 Intake and Output: 10/30/16 10/30/16 06:59 18:59 Intake Total 500 Balance 500 - Medications Medications: Current Medications Albuterol/Ipratropium (Duoneb 3 Mg/0.5 Mg (3 Ml) Ud) 3 ml INH RQ6 [facility]S AT [facility] Last Admin: 10/30/16 09:11 Dose: 3 ml Diphenhydramine HCl (Benadryl) 25 mg PO HS PRN PRN Reason: Insomnia Last Admin: 10/27/16 01:30 Dose: 25 mg Epoetin Sean (Procrit) 2,000 u SC TTS [facility]S [facility] 234 BEDS AT [facility] Last Admin: 10/28/16 11:18 Dose: 2,000 u Epoetin Sean (Procrit) 3,000 unit SC TTS [facility] 234 BEDS AT [facility] Last Admin: 10/28/16 11:18 Dose: 3,000 unit Folic Acid (Folic Acid) 1 mg PO DAILY [facility] 234 BEDS AT [facility] Last Admin: 10/30/16 09:06 Dose: 1 mg Furosemide (Lasix) 40 mg IVP DAILY [facility] 234 BEDS AT [facility] Last Admin: 10/30/16 09:06 Dose: 40 mg Gabapentin (Neurontin) 300 mg PO TID [facility] 234 BEDS AT [facility] Last Admin: 10/30/16 09:06 Dose: 300 mg Gabapentin (Neurontin) 600 mg PO HS [facility] 234 BEDS AT [facility] Last Admin: 10/29/16 21:08 Dose: 600 mg Guaifenesin (Mucinex La) 600 mg PO BID [facility] 234 BEDS AT [facility] Last Admin: 10/30/16 09:05 Dose: 600 mg Meropenem 1 gm/ Sodium (Chloride) 100 mls @ 100 mls/hr IVPB Q8H [facility]CLUDE 234 BEDS AT [facility] Last Admin: 10/30/16 05:30 Dose: 100 mls/hr Lidocaine (Lidoderm) 2 ea TD DAILY [facility] 234 BEDS AT [facility] Last Admin: 10/30/16 09:10 Dose: Not Given Lorazepam (Ativan) 0.5 mg PO Q6H PRN PRN Reason: Anxiety Morphine Sulfate (Morphine) 2 mg IVP Q6 PRN PRN Reason: Pain, moderate (4-7) Last Admin: 10/30/16 09:07 Dose: 2 mg Pantoprazole Sodium (Protonix Inj) 40 mg IVP DAILY [facility] 234 BEDS AT [facility] Last Admin: 10/30/16 09:07 Dose: 40 mg Trazodone HCl (Desyrel) 50 mg PO HS [facility]S [facility]CLUDE 234 BEDS AT [facility] Last Admin: 10/29/16 21:08 Dose: 50 mg - Labs Labs: 10/30/16 07:27 10/30/16 07:27 PT 16.9 SECONDS (9.7-12.2) H 10/24/16 14:07 INR 1.5 10/24/16 14:07 APTT 44 SECONDS (21-34) H 10/24/16 14:07 - Constitutional Appears: No Acute Distress - Head Exam Head Exam: NORMAL INSPECTION, NORMOCEPHALIC - Eye Exam Eye Exam: EOMI, Scleral icterus - ENT Exam ENT Exam: Mucous Membranes Moist - Neck Exam Neck Exam: Full ROM, Normal Inspection - Respiratory Exam Respiratory Exam: Clear to Ausculation Bilateral, NORMAL BREATHING PATTERN - Cardiovascular Exam Cardiovascular Exam: Tachycardia, +S1, +S2 - GI/Abdominal Exam GI & Abdominal Exam: Soft, Tenderness (epigastic ) - Extremities Exam Extremities Exam: Full ROM, Normal Inspection. absent: Tenderness - Neurological Exam Neurological Exam: Alert, Awake, Oriented x3 - Psychiatric Exam Psychiatric exam: Normal Affect, Normal Mood - Skin Skin Exam: Dry, Normal Color, Warm Assessment and Plan - Assessment and Plan (Free Text) Assessment: (1) Leukocytosis Assessment & Plan: CODE SEPSIS (10/13/16) WBC 44.4 today, left shift w. 10 bands (improved) Criteria on admission: Leukocytosis 60.5, Tachycardic, Tachypnic Dr. Velazquez, ID consult: help appreciated Sputum Cx (10/22/16): +ESBL Meropenem IVPB Patient will need 3 weeks of antibiotics from 10/26/16. PICC placed on 09/16/16 Outpatient IV infusions to occur at either home or at [facility]. However, patient does not qualify for [facility] at this time. Case management to discuss with patient' s mother regarding living situation. Discharge planning in the morning. Cdiff (10/13/16): negative Blood Cx (10/13/16): no growth for 5 days x 2 Urine Cx (10/13/16): no growth MRSA screen (10/13/16): not detected Status: Acute (2) Pleural effusion Assessment & Plan: 10/24 Chest Xray shows Large loculated right pleural effusion with adjacent airspace consolidation. Venous congestion. s/p IR thoracentesis 10/24/16 with 600 cc removed. Patient had IR thoracentesis (10/17/16) with 500cc removed. Cytology studies: Transudative effusion, elevated neutrophils and lymphocytes CT A/P (10/15/16): RLL consolidation and pleural effusion. Mild left lung atelectasis. 6mm left lower lobe pulm nodule (should have repeat CT in 3-12 months based on malignancy risk). (see full report) CXR (10/16/16): moderate to large rt pleural effusion with consolidative changes in rt mid-lower lung zone. Venous congestion. Upper lobe granulomatous changes. Scattered nodularity in upper lung zones. Cardiomegaly. (see full report) CT Chest (10/16/16): Moderate to large right pleural effusion. Complete consolidation of right lower lobe and partial collapse/consolidation of of right middle lobe. Ground glass opacities. Cardiomegaly. (see full report) Status: Acute (3) Anemia Hgb 7.8 this AM. Patient refusing transfusions at this time. Will follow up CBC in the AM. Iron 36. Ferrilicit IVPB Procrit TTS stool OB negative 4) Tachycardia Assessment & Plan: Patient with persistent tachycardia. Patient also more anemic today. Cardio consult placed 10/19. As per discussion with Dr. Hogan, will start patient on Cardizem 30 mg Q8H PO with holding paramaters. If HR improves on this medication, patient may go home with long acting Cardizem 120-180 mg PO daily dose. Placed on Telemetry as per Dr. Hogan. 5) Seizure Assessment & Plan: Hepatic Encephalopathy on presentation. Currently resolved. Mentating without difficulty Gabapentin 300mg PO BID Ativan 0.5mg IVP PRN shakiness/anxiety Status: Acute (6) Liver failure Assessment & Plan: Secondary to alcoholic hepatitis w. decompensated liver failure Hyperammonemia on admission. 10/23/16 Ammonia 29. Lactulose D/C 10/25/16. LFTs and Alk phos are elevated secondary to alcohol abuse - Spirinolactone 50mg Daily - Rifaximin 550mg PO BID - Lasix 20mg IV daily Status: Chronic (7) Alcohol dependence Assessment & Plan: Hx of Benzo/Alcohol Abuse UDS negative Status: Chronic (8) Asthma Assessment & Plan: O2 saturation: 98% on Room Air - Pulmicort Respules 0.5mg Q12H substituted for home Advair - Duonebs Q6H [facility] Status: Chronic (9) Anxiety Assessment & Plan: Detox for anxiety/xanax in October of 2015 Psych consult: Dr. Smith, help appreciated -Ativan taper -Gabapentin 300mg PO TID, 400mg PO HS -CBT and supportive therapy Status: Chronic (10) Back pain Assessment & Plan: Pt reports history of 'herniated discs' Lidoderm patch Morphine 2mg IV q6h prn PT/OT eval ordered 10/23/16 Status: Chronic (11) Prophylactic measure Assessment & Plan: DVT: SCDs VTE: Heparin 5000 units q12h GI: Protonix IV daily PT ordered. Status: Acute Management as per Dr. Becerril.
--- NOTE | 2016-10-30 21:07 | RAD ---
PROCEDURE: CHEST RADIOGRAPH, 1 VIEW HISTORY: SOB, desaturation COMPARISON: 10/27/2016 FINDINGS: LUNGS: Right PICC line with tip extending to the cavoatrial junction. Persistent loculated moderate right pleural effusion with consolidative changes in the right mid to lower lung zone. Posttreatment followup is recommended. Venous congestion. PLEURA: As above. CARDIOVASCULAR: Normal. OSSEOUS STRUCTURES: No significant abnormalities. VISUALIZED UPPER ABDOMEN: Normal. OTHER FINDINGS: None. IMPRESSION: Right PICC line with tip extending to the cavoatrial junction. Persistent loculated moderate right pleural effusion with consolidative changes in the right mid to lower lung zone. Posttreatment followup is recommended. Venous congestion.
[2016-10-30 22:04] LABS: ARTERIAL BLOOD HGB O2 SAT 96.5 % (95.0-98.0); CARBOXYHEMOGLOBIN 2.7 % (0.5-1.5); DRAW SITE LRA; METHEMOGLOBIN 1.9 % (0.0-3.0)
--- NOTE | 2016-10-31 00:01 | CP.PCM.PN ---
Subjective - Date & Time of Evaluation Date of Evaluation: 10/30/16 Time of Evaluation: 16:00 - Subjective Subjective: Patient seen and evaluated Tachycardia Will start Cardizem 30 Q6H and titrate to keep HR<100 Objective - Vital Signs/Intake and Output Vital Signs (last 24 hours): Temp Pulse Resp BP Pulse Ox 100.3 F H 117 H 20 124/77 99 10/30/16 20:00 10/30/16 20:00 10/30/16 20:00 10/30/16 20:00 10/30/16 20:00 - Medications Medications: Current Medications Albuterol/Ipratropium (Duoneb 3 Mg/0.5 Mg (3 Ml) Ud) 3 ml INH RQ6 [facility] Last Admin: 10/30/16 19:32 Dose: 3 ml Diltiazem HCl (Cardizem) 30 mg PO QID [facility] Last Admin: 10/30/16 21:19 Dose: 30 mg Diphenhydramine HCl (Benadryl) 25 mg PO HS PRN PRN Reason: Insomnia Last Admin: 10/27/16 01:30 Dose: 25 mg Epoetin Sean (Procrit) 2,000 u SC TTS [facility] Last Admin: 10/28/16 11:18 Dose: 2,000 u Epoetin Sean (Procrit) 3,000 unit SC TTS [facility] Last Admin: 10/28/16 11:18 Dose: 3,000 unit Folic Acid (Folic Acid) 1 mg PO DAILY [facility] Last Admin: 10/30/16 09:06 Dose: 1 mg Furosemide (Lasix) 40 mg IVP DAILY [facility] Last Admin: 10/30/16 09:06 Dose: 40 mg Gabapentin (Neurontin) 300 mg PO TID [facility] Last Admin: 10/30/16 17:36 Dose: 300 mg Gabapentin (Neurontin) 600 mg PO HS [facility] Last Admin: 10/30/16 21:19 Dose: 600 mg Guaifenesin (Mucinex La) 600 mg PO BID [facility] Last Admin: 10/30/16 17:36 Dose: 600 mg Meropenem 1 gm/ Sodium (Chloride) 100 mls @ 100 mls/hr IVPB Q8H [facility] Last Admin: 10/30/16 20:56 Dose: 100 mls/hr Lidocaine (Lidoderm) 2 ea TD DAILY [facility] Last Admin: 10/30/16 09:10 Dose: Not Given Lorazepam (Ativan) 0.5 mg PO Q6H PRN PRN Reason: Anxiety Morphine Sulfate (Morphine) 2 mg IVP Q6 PRN PRN Reason: Pain, moderate (4-7) Last Admin: 10/30/16 21:19 Dose: 2 mg Pantoprazole Sodium (Protonix Inj) 40 mg IVP DAILY [facility] Last Admin: 10/30/16 09:07 Dose: 40 mg Trazodone HCl (Desyrel) 50 mg PO HS [facility] Last Admin: 10/30/16 21:19 Dose: 50 mg - Labs Labs: 10/30/16 07:27 10/30/16 07:27 PT 16.9 SECONDS (9.7-12.2) H 10/24/16 14:07 INR 1.5 10/24/16 14:07 APTT 44 SECONDS (21-34) H 10/24/16 14:07
[2016-10-31] MEDS: Albuterol-Ipratrop 3 mg / 0.5 (3 ml) UD INH SCH ×4 (01:24→20:53)
[2016-10-31] MEDS ORDERED: Iodixanol 320 MG/ML 100 ML BOTTLE IV ONE (02:42)
[2016-10-31] MEDS ORDERED: Sodium Chloride 0.9% 1,000 ML IV ONE (03:35)
[2016-10-31] MEDS: Meropenem 1 GM in Sodium Chloride 0.9% 100 ML IVPB SCH ×3 (05:45→21:59)
--- NOTE | 2016-10-31 05:50 | CT ---
EXAM: CT Angiography Chest With Intravenous Contrast CLINICAL HISTORY: 31 years old, female; Pain; Chest pain; Patient HX: 417; Additional info: Elevated ddimer, low po2 despite 100%oxy TECHNIQUE: Axial computed tomographic angiography images of the chest with intravenous contrast using pulmonary embolism protocol. This CT exam was performed using one or more of the following dose reduction techniques: automated exposure control, adjustment of the mA and/or kV according to patient size, and/or use of iterative reconstruction technique. MIP reconstructed images were created and reviewed. Coronal and sagittal reformatted images were created and reviewed. CONTRAST: 100 mL of [id number] administered intravenously. COMPARISON: CR - CHEST ONE VIEW 10/30/2016 6:54:41 PM FINDINGS: Pulmonary arteries: No pulmonary embolism. Aorta: No thoracic aortic aneurysm. Lungs: No mass. A moderate right-sided pleural effusion, with consolidation of the right lung base, and adjacent compressive atelectasis. Pleural spaces: As above. Heart: No cardiomegaly. No significant pericardial effusion. No evidence of right heart dysfunction. Bones: No acute fracture. Lymph nodes: No pathologically enlarged lymph nodes. IMPRESSION: No pulmonary embolism. Moderate right-sided pleural effusion with consolidation at the right lung base and adjacent compressive atelectasis.
[2016-10-31 07:07] LABS: BASO # 0.3 K/uL (0.0-0.2); BASO % 0.8 % (0.0-2.0); EOS # 0.5 K/uL (0.0-0.7); EOS % 1.3 % (0.0-4.0); HEMATOCRIT 24.6 % (34.0-47.0); LYMPH # 2.7 K/uL (1.0-4.3); LYMPH % 6.8 % (20.0-40.0); MEAN CELL VOLUME 109.3 fL (81.0-99.0); MEAN CORPUSCULAR HEMOGLOBIN 34.3 pg (27.0-31.0); MEAN CORPUSCULAR HGB CONC 31.4 g/dL (33.0-37.0); MEAN PLATELET VOLUME 9.1 fL (7.2-11.7); MONO # 0.8 K/uL (0.0-0.8); MONO % 2.1 % (0.0-10.0); NRBC % 0.1 % (0.0-2.0); PLATELET COUNT 505 K/uL (130-400); RED CELL DISTRIBUTION WIDTH 18.3 % (11.5-14.5)
[2016-10-31 07:20] LABS: WHITE BLOOD COUNT 39.5 K/uL (4.8-10.8)
[2016-10-31 07:22] LABS: CHLORIDE 94 mmol/L (98-107)
[2016-10-31 07:23] LABS: POTASSIUM 3.9 mmol/L (3.6-5.2); SODIUM 134 mmol/L (132-148)
[2016-10-31 07:25] LABS: ALB/GLOB RATIO 0.9 (1.0-2.1); ALKALINE PHOSPHATASE 190 U/L (38-126); ALT/SGPT 60 U/L (9-52); AST/SGOT 111 U/L (14-36); BILIRUBIN,TOTAL 6.5 mg/dL (0.2-1.3); BLOOD UREA NITROGEN 9 mg/dL (7-17); CARBON DIOXIDE 29 mmol/L (22-30); GFR AFRICAN-AMERICAN > 60; GLUCOSE,RANDOM 95 mg/dL (65-105); PHOSPHOROUS 3.4 mg/dL (2.5-4.5); TOTAL PROTEIN 6.5 g/dL (6.3-8.3)
[2016-10-31 07:26] LABS: MAGNESIUM 1.9 mg/dL (1.6-2.3)
[2016-10-31 09:56] LABS: EOSINOPHIL 2 % (0-4); NEUTROPHIL 87 % (50-75); NUCLEATED RED BLOOD CELL 1 % (0-0); REACTIVE LYMPHOCYTES 1 % (0-0); TOTAL CELLS COUNTED 100
[2016-10-31] MEDS: guaiFENesin 600 mg ER Tab PO SCH ×2 (10:11→18:09)
[2016-10-31] MEDS: Lidocaine 5% Patch TD SCH (10:12)
[2016-10-31] MEDS: Epoetin Alfa 3000 UNIT/ML Inj SC SCH (10:14)
[2016-10-31] MEDS: [UNRECOGNIZED DRUG - OTHER] SC SCH (10:14)
--- NOTE | 2016-10-31 11:08 | CP.PCM.PN ---
Subjective - Date & Time of Evaluation Date of Evaluation: 10/31/16 Time of Evaluation: 09:30 - Subjective Subjective: Medicine Progress Note Patient seen and examined. She is complaining of epigastric abdominal pain that is worse when she tries to eat. Per patient she has to eat her meals slowly and with little portions due to her abdominal distention. The patient continues to have tachycardia despite being on cardizem since yesterday. Denies fevers, chills, nausea, vomiting, chest pain, and shortness of breath. Patient was unable to be discharged [facility] for continued anitbiotics. As per case management insurance issues do not allow her to go. Patient can get home IV antibiotic infusions. Patient's IV infusions cannot be provided at a [place] [facility]. Physical therapy recommending recommend home discharge. Objective - Vital Signs/Intake and Output Vital Signs (last 24 hours): Temp Pulse Resp BP Pulse Ox 98.7 F 115 H 20 126/73 96 10/31/16 07:52 10/31/16 07:52 10/31/16 07:52 10/31/16 10:13 10/31/16 07:52 Intake and Output: 10/31/16 10/31/16 06:59 18:59 Intake Total 860 Balance 860 - Medications Medications: Current Medications Albuterol/Ipratropium (Duoneb 3 Mg/0.5 Mg (3 Ml) Ud) 3 ml INH RQ6 [facility] Last Admin: 10/31/16 08:05 Dose: 3 ml Diltiazem HCl (Cardizem) 30 mg PO QID [facility] Last Admin: 10/31/16 10:11 Dose: 30 mg Diphenhydramine HCl (Benadryl) 25 mg PO HS PRN PRN Reason: Insomnia Last Admin: 10/27/16 01:30 Dose: 25 mg Epoetin Sean (Procrit) 2,000 u SC TTS [facility] Last Admin: 10/31/16 10:14 Dose: 2,000 u Epoetin Sean (Procrit) 3,000 unit SC TTS [facility] Last Admin: 10/31/16 10:14 Dose: 3,000 unit Folic Acid (Folic Acid) 1 mg PO DAILY [facility] Last Admin: 10/31/16 10:11 Dose: 1 mg Furosemide (Lasix) 40 mg IVP DAILY [facility] Last Admin: 05/02/17 10:13 Dose: 40 mg Gabapentin (Neurontin) 300 mg PO TID [facility] Last Admin: 10/31/16 10:11 Dose: 300 mg Gabapentin (Neurontin) 600 mg PO [facility] Last Admin: 10/30/16 21:19 Dose: 600 mg Guaifenesin (Mucinex La) 600 mg PO BID [facility] Last Admin: 10/31/16 10:11 Dose: 600 mg Meropenem 1 gm/ Sodium (Chloride) 100 mls @ 100 mls/hr IVPB Q8H [facility] Last Admin: 10/31/16 05:45 Dose: 100 mls/hr Sodium Chloride (Sodium Chloride 0.9%) 1,000 mls @ 100 mls/hr IV .Q10H ONE Stop: 10/31/16 13:34 Last Admin: 10/31/16 03:35 Dose: 100 mls/hr Lidocaine (Lidoderm) 2 ea TD DAILY [facility] Last Admin: 10/31/16 10:12 Dose: Not Given Lorazepam (Ativan) 0.5 mg PO Q6H PRN PRN Reason: Anxiety Morphine Sulfate (Morphine) 2 mg IVP Q6 PRN PRN Reason: Pain, moderate (4-7) Last Admin: 10/31/16 09:17 Dose: 2 mg Pantoprazole Sodium (Protonix Inj) 40 mg IVP DAILY [facility] Last Admin: 10/31/16 10:13 Dose: 40 mg Trazodone HCl (Desyrel) 50 mg PO [facility] Last Admin: 10/30/16 21:19 Dose: 50 mg - Labs Labs: 10/31/16 06:56 10/31/16 06:56 PT 16.9 SECONDS (9.7-12.2) H 10/24/16 14:07 INR 1.5 10/24/16 14:07 APTT 44 SECONDS (21-34) H 10/24/16 14:07 - Constitutional Appears: No Acute Distress, Chronically Ill - Head Exam Head Exam: ATRAUMATIC, NORMOCEPHALIC - Eye Exam Eye Exam: EOMI, Normal appearance, Scleral icterus - ENT Exam ENT Exam: Mucous Membranes Moist - Neck Exam Neck Exam: Full ROM - Respiratory Exam Respiratory Exam: Decreased Breath Sounds, NORMAL BREATHING PATTERN. absent: Rhonchi, Wheezes (mild wheezing throughout ), Respiratory Distress - Cardiovascular Exam Cardiovascular Exam: Tachycardia, REGULAR RHYTHM, +S1, +S2 - GI/Abdominal Exam GI & Abdominal Exam: Distended, Soft, Normal Bowel Sounds. absent: Firm, Guarding - Extremities Exam Extremities Exam: Pedal Edema. absent: Tenderness - Neurological Exam Neurological Exam: Alert, Awake, CN II-XII Intact, Oriented x3 - Psychiatric Exam Psychiatric exam: Normal Affect, Normal Mood - Skin Skin Exam: Dry, Intact, Normal Color, Warm Assessment and Plan - Assessment and Plan (Free Text) Assessment: (1) Leukocytosis Assessment & Plan: On admission CODE SEPSIS (10/13/16) Criteria on admission: Leukocytosis 60.5, Tachycardic, Tachypnic, continues to improve WBC 39.5 today, left shift Dr. Velazquez, ID consult: help appreciated Sputum Cx (10/22/16): +ESBL Meropenem IVPB Patient will need 3 weeks of antibiotics from 10/26/16 until . PICC placed Outpatient IV infusions to occur at either home. However, patient does not qualify for [facility] at this time. Case management to discuss with patient's mother regarding living situation. Discharge planning today. Cdiff (10/13/16): negative Blood Cx (10/13/16): no growth for 5 days x 2 Urine Cx (10/13/16): no growth MRSA screen (10/13/16): not detected Status: Acute (2) Pleural effusion Assessment & Plan: Patient stable 10/24 Chest Xray shows Large loculated right pleural effusion with adjacent airspace consolidation. Venous congestion. s/p IR thoracentesis 10/24/16 with 600 cc removed. Patient had IR thoracentesis (10/17/16) with 500cc removed. Cytology studies: Transudative effusion, elevated neutrophils and lymphocytes CT A/P (10/15/16): RLL consolidation and pleural effusion. Mild left lung atelectasis. 6mm left lower lobe pulm nodule (should have repeat CT in 3-12 months based on malignancy risk). (see full report) CXR (10/16/16): moderate to large rt pleural effusion with consolidative changes in rt mid-lower lung zone. Venous congestion. Upper lobe granulomatous changes. Scattered nodularity in upper lung zones. Cardiomegaly. (see full report) CT Chest (10/16/16): Moderate to large right pleural effusion. Complete consolidation of right lower lobe and partial collapse/consolidation of of right middle lobe. Ground glass opacities. Cardiomegaly. (see full report) Status: Acute (3) Anemia Hgb 7.7 this AM. Patient refusing transfusions at this time. Stable at this time. Iron 36. Ferrilicit IVPB Procrit TTS stool OB negative 4) Tachycardia Assessment & Plan: Patient with persistent tachycardia. Cardio consult placed 10/19. As per discussion with Dr. Hogan, will start patient on Cardizem 30 mg Q8H PO with holding paramaters. Patient's tachycardia improving slightly, but still HR >100. Will continue cardizem. Patient may go home with long acting Cardizem 120-180 mg PO daily dose per Dr Hogan once HR is controlled. 5) Seizure Assessment & Plan: Hepatic Encephalopathy on presentation. Currently resolved. Mentating without difficulty Gabapentin 300mg PO BID Ativan 0.5mg IVP PRN shakiness/anxiety Status: Acute (6) Liver failure Assessment & Plan: Secondary to alcoholic hepatitis w. decompensated liver failure Hyperammonemia on admission. 10/23/16 Ammonia 29. Lactulose D/C 10/25/16. LFTs and Alk phos are elevated secondary to alcohol abuse - Spirinolactone 50mg Daily - Rifaximin 550mg PO BID - Lasix 20mg IV daily Status: Chronic (7) Alcohol dependence Assessment & Plan: Hx of Benzo/Alcohol Abuse UDS negative Status: Chronic (8) Asthma Assessment & Plan: O2 saturation: 98% on Room Air - Pulmicort Respules 0.5mg Q12H substituted for home Advair - Duonebs Q6H [facility] Status: Chronic (9) Anxiety Assessment & Plan: Detox for anxiety/xanax in October of 2015 Psych consult: Dr. Smith, help appreciated -Ativan taper -Gabapentin 300mg PO TID, 400mg PO HS -CBT and supportive therapy Status: Chronic (10) Back pain Assessment & Plan: Pt reports history of 'herniated discs' Lidoderm patch Morphine 2mg IV q6h prn PT/OT eval ordered 10/23/16 Status: Chronic (11) Prophylactic measure Assessment & Plan: DVT: SCDs VTE: Heparin 5000 units q12h GI: Protonix IV daily PT ordered. Status: Acute Management as per Dr. Becerril. DC planning home.
--- NOTE | 2016-10-31 12:46 | CP.PCM.PN ---
Subjective - Date & Time of Evaluation Date of Evaluation: 10/31/16 Time of Evaluation: 09:00 - Subjective Subjective: events noted consider TIN cont IV rx Objective - Vital Signs/Intake and Output Vital Signs (last 24 hours): Temp Pulse Resp BP Pulse Ox 98.7 F 115 H 20 126/73 96 10/31/16 07:52 10/31/16 07:52 10/31/16 07:52 10/31/16 10:13 10/31/16 07:52 Intake and Output: 10/31/16 10/31/16 06:59 18:59 Intake Total 860 Balance 860 - Medications Medications: Current Medications Albuterol/Ipratropium (Duoneb 3 Mg/0.5 Mg (3 Ml) Ud) 3 ml INH RQ6 [facility] Last Admin: 10/31/16 08:05 Dose: 3 ml Diltiazem HCl (Cardizem) 30 mg PO QID [facility] Last Admin: 10/31/16 10:11 Dose: 30 mg Diphenhydramine HCl (Benadryl) 25 mg PO HS PRN PRN Reason: Insomnia Last Admin: 10/27/16 01:30 Dose: 25 mg Epoetin Sean (Procrit) 2,000 u SC TTS [facility] Last Admin: 10/31/16 10:14 Dose: 2,000 u Epoetin Sean (Procrit) 3,000 unit SC TTS [facility] Last Admin: 10/31/16 10:14 Dose: 3,000 unit Folic Acid (Folic Acid) 1 mg PO DAILY [facility] Last Admin: 10/31/16 10:11 Dose: 1 mg Furosemide (Lasix) 40 mg IVP DAILY [facility] Last Admin: 10/31/16 10:13 Dose: 40 mg Gabapentin (Neurontin) 300 mg PO TID [facility] Last Admin: 10/31/16 10:11 Dose: 300 mg Gabapentin (Neurontin) 600 mg PO HS [facility] Last Admin: 10/30/16 21:19 Dose: 600 mg Guaifenesin (Mucinex La) 600 mg PO BID [facility] Last Admin: 10/31/16 10:11 Dose: 600 mg Meropenem 1 gm/ Sodium (Chloride) 100 mls @ 100 mls/hr IVPB Q8H [facility] Last Admin: 10/31/16 05:45 Dose: 100 mls/hr Sodium Chloride (Sodium Chloride 0.9%) 1,000 mls @ 100 mls/hr IV .Q10H ONE Stop: 10/31/16 13:34 Last Admin: 10/31/16 03:35 Dose: 100 mls/hr Lidocaine (Lidoderm) 2 ea TD DAILY [facility] Last Admin: 10/31/16 10:12 Dose: Not Given Lorazepam (Ativan) 0.5 mg PO Q6H PRN PRN Reason: Anxiety Morphine Sulfate (Morphine) 2 mg IVP Q6 PRN PRN Reason: Pain, moderate (4-7) Last Admin: 10/31/16 09:17 Dose: 2 mg Pantoprazole Sodium (Protonix Inj) 40 mg IVP DAILY [facility] Last Admin: 10/31/16 10:13 Dose: 40 mg Trazodone HCl (Desyrel) 50 mg PO HS [facility] Last Admin: 10/30/16 21:19 Dose: 50 mg - Labs Labs: 10/31/16 06:56 10/31/16 06:56 PT 16.9 SECONDS (9.7-12.2) H 10/24/16 14:07 INR 1.5 10/24/16 14:07 APTT 44 SECONDS (21-34) H 10/24/16 14:07 - Constitutional Appears: Chronically Ill - Head Exam Head Exam: NORMOCEPHALIC - Eye Exam Eye Exam: Scleral icterus - Neck Exam Neck Exam: absent: Lymphadenopathy - Respiratory Exam Respiratory Exam: Decreased Breath Sounds, Rhonchi - Cardiovascular Exam Cardiovascular Exam: Tachycardia, REGULAR RHYTHM, +S1, +S2 - GI/Abdominal Exam GI & Abdominal Exam: Distended, Soft, Organomegaly. absent: Tenderness Assessment and Plan (1) Liver failure Status: Chronic (2) Sepsis Status: Acute (3) Hepatic encephalopathy Status: Acute (4) Seizure Status: Acute
--- NOTE | 2016-10-31 19:31 | CP.PCM.PN ---
Subjective - Date & Time of Evaluation Date of Evaluation: 10/31/16 Time of Evaluation: 18:00 - Subjective Subjective: No complaints. Objective - Vital Signs/Intake and Output Vital Signs (last 24 hours): Temp Pulse Resp BP Pulse Ox 100.0 F H 123 H 22 113/68 91 L 10/31/16 15:03 10/31/16 15:03 10/31/16 15:03 10/31/16 15:03 10/31/16 15:03 Intake and Output: 10/31/16 11/01/16 18:59 06:59 Intake Total 1960 Balance 1960 - Medications Medications: Current Medications Albuterol/Ipratropium (Duoneb 3 Mg/0.5 Mg (3 Ml) Ud) 3 ml INH RQ6 [facility] Last Admin: 10/31/16 13:24 Dose: 3 ml Diltiazem HCl (Cardizem) 30 mg PO QID [facility] Last Admin: 10/31/16 18:09 Dose: 30 mg Diphenhydramine HCl (Benadryl) 25 mg PO HS PRN PRN Reason: Insomnia Last Admin: 10/27/16 01:30 Dose: 25 mg Epoetin Sean (Procrit) 2,000 u SC TTS [facility] Last Admin: 10/31/16 10:14 Dose: 2,000 u Epoetin Sean (Procrit) 3,000 unit SC TTS [facility] Last Admin: 10/31/16 10:14 Dose: 3,000 unit Folic Acid (Folic Acid) 1 mg PO DAILY [facility] Last Admin: 10/31/16 10:11 Dose: 1 mg Furosemide (Lasix) 40 mg IVP DAILY [facility] Last Admin: 10/31/16 10:13 Dose: 40 mg Gabapentin (Neurontin) 300 mg PO TID [facility] Last Admin: 10/31/16 18:09 Dose: 300 mg Gabapentin (Neurontin) 600 mg PO HS [facility] Last Admin: 10/30/16 21:19 Dose: 600 mg Guaifenesin (Mucinex La) 600 mg PO BID [facility] Last Admin: 10/31/16 18:09 Dose: 600 mg Meropenem 1 gm/ Sodium (Chloride) 100 mls @ 100 mls/hr IVPB Q8H [facility] Last Admin: 10/31/16 12:47 Dose: 100 mls/hr Ibuprofen (Motrin Tab) 400 mg PO Q6 PRN PRN Reason: fever temp above 100 Lidocaine (Lidoderm) 2 ea TD DAILY [facility] Last Admin: 10/31/16 10:12 Dose: Not Given Lorazepam (Ativan) 0.5 mg PO Q6H PRN PRN Reason: Anxiety Morphine Sulfate (Morphine) 2 mg IVP Q6 PRN PRN Reason: Pain, moderate (4-7) Last Admin: 10/31/16 15:38 Dose: 2 mg Pantoprazole Sodium (Protonix Inj) 40 mg IVP DAILY [facility] Last Admin: 10/31/16 10:13 Dose: 40 mg Trazodone HCl (Desyrel) 50 mg PO HS [facility] Last Admin: 10/30/16 21:19 Dose: 50 mg - Labs Labs: 10/31/16 06:56 10/31/16 06:56 PT 16.9 SECONDS (9.7-12.2) H 10/24/16 14:07 INR 1.5 10/24/16 14:07 APTT 44 SECONDS (21-34) H 10/24/16 14:07 - Head Exam Head Exam: ATRAUMATIC - Eye Exam Eye Exam: Normal appearance - ENT Exam ENT Exam: Mucous Membranes Dry - Respiratory Exam Respiratory Exam: NORMAL BREATHING PATTERN - Cardiovascular Exam Cardiovascular Exam: +S1, +S2 - GI/Abdominal Exam GI & Abdominal Exam: Normal Bowel Sounds - Extremities Exam Extremities Exam: Normal Inspection Assessment and Plan (1) Leukocytosis Assessment & Plan: downtrending BCR/ABL sent Status: Acute (2) Anemia Assessment & Plan: chronic disease Status: Acute (3) Coagulopathy Status: Acute
[2016-10-31 23:34] VITALS: RESP 20
[2016-11-01] MEDS: Albuterol-Ipratrop 3 mg / 0.5 (3 ml) UD INH SCH ×4 (02:15→20:12)
[2016-11-01] MEDS: Meropenem 1 GM in Sodium Chloride 0.9% 100 ML IVPB SCH ×3 (04:05→21:01)
[2016-11-01] MEDS: guaiFENesin 600 mg ER Tab PO SCH ×2 (09:56→17:30)
[2016-11-01] MEDS: Lidocaine 5% Patch TD SCH (10:02)
--- NOTE | 2016-11-01 11:08 | CP.PCM.PN ---
Subjective - Date & Time of Evaluation Date of Evaluation: 11/01/16 Time of Evaluation: 11:05 - Subjective Subjective: Medicine Progress Note Patient seen and examined. Patient states that she feels with no acute complaints. Per patient, her mother is moving into a new house today and will be settled by Sunday11/03/16 in the house. Patient agrees to discharge home on Sunday. She denies fever, chills, nausea, vomiting, chest pain, shortness of breath and palpitations. Objective - Vital Signs/Intake and Output Vital Signs (last 24 hours): Temp Pulse Resp BP Pulse Ox 98.4 F 115 H 20 100/71 95 11/01/16 08:00 11/01/16 08:00 11/01/16 08:00 11/01/16 09:55 11/01/16 08:00 Intake and Output: 11/01/16 11/01/16 06:59 18:59 Intake Total 1050 Balance 1050 - Medications Medications: Current Medications Albuterol/Ipratropium (Duoneb 3 Mg/0.5 Mg (3 Ml) Ud) 3 ml INH RQ6 [facility] Last Admin: 11/01/16 08:05 Dose: 3 ml Diltiazem HCl (Cardizem) 30 mg PO QID [facility] Last Admin: 11/01/16 09:56 Dose: 30 mg Diphenhydramine HCl (Benadryl) 25 mg PO HS PRN PRN Reason: Insomnia Last Admin: 10/27/16 01:30 Dose: 25 mg Epoetin Sean (Procrit) 2,000 u SC TTS [facility] Last Admin: 10/31/16 10:14 Dose: 2,000 u Epoetin Sean (Procrit) 3,000 unit SC TTS [facility] Last Admin: 10/31/16 10:14 Dose: 3,000 unit Folic Acid (Folic Acid) 1 mg PO DAILY [facility] Last Admin: 11/01/16 09:56 Dose: 1 mg Furosemide (Lasix) 40 mg IVP DAILY [facility] Last Admin: 11/01/16 09:55 Dose: 40 mg Gabapentin (Neurontin) 300 mg PO TID [facility] Last Admin: 11/01/16 09:56 Dose: 300 mg Gabapentin (Neurontin) 600 mg PO HS [facility] Last Admin: 10/31/16 21:59 Dose: 600 mg Guaifenesin (Mucinex La) 600 mg PO BID [facility] Last Admin: 11/01/16 09:56 Dose: 600 mg Meropenem 1 gm/ Sodium (Chloride) 100 mls @ 100 mls/hr IVPB Q8H [facility] Last Admin: 11/01/16 04:05 Dose: 100 mls/hr Ibuprofen (Motrin Tab) 400 mg PO Q6 PRN PRN Reason: fever temp above 100 Last Admin: 10/31/16 20:20 Dose: 400 mg Lidocaine (Lidoderm) 2 ea TD DAILY [facility] Last Admin: 11/01/16 10:02 Dose: Not Given Lorazepam (Ativan) 0.5 mg PO Q6H PRN PRN Reason: Anxiety Morphine Sulfate (Morphine) 2 mg IVP Q6 PRN PRN Reason: Pain, moderate (4-7) Last Admin: 11/01/16 03:55 Dose: 2 mg Pantoprazole Sodium (Protonix Inj) 40 mg IVP DAILY [facility] Last Admin: 11/01/16 09:55 Dose: 40 mg Trazodone HCl (Desyrel) 50 mg PO HS [facility] Last Admin: 10/31/16 21:59 Dose: 50 mg - Labs Labs: 10/31/16 06:56 10/31/16 06:56 PT 16.9 SECONDS (9.7-12.2) H 10/24/16 14:07 INR 1.5 10/24/16 14:07 APTT 44 SECONDS (21-34) H 10/24/16 14:07 - Additional Findings Additional findings: - Constitutional Appears: No Acute Distress, Chronically Ill - Head Exam Head Exam: ATRAUMATIC, NORMOCEPHALIC - Eye Exam Eye Exam: EOMI, Normal appearance, Scleral icterus - ENT Exam ENT Exam: Mucous Membranes Moist - Neck Exam Neck Exam: Full ROM - Respiratory Exam Respiratory Exam: Decreased Breath Sounds, NORMAL BREATHING PATTERN. absent: Rhonchi, Wheezes (mild wheezing throughout ), Respiratory Distress - Cardiovascular Exam Cardiovascular Exam: Tachycardia, REGULAR RHYTHM, +S1, +S2 - GI/Abdominal Exam GI & Abdominal Exam: Distended, Soft, Normal Bowel Sounds. absent: Firm, Guarding - Extremities Exam Extremities Exam: Pedal Edema. absent: Tenderness - Neurological Exam Neurological Exam: Alert, Awake, CN II-XII Intact, Oriented x3 - Psychiatric Exam Psychiatric exam: Normal Affect, Normal Mood - Skin Skin Exam: Dry, Intact, Normal Color, Warm Assessment and Plan - Assessment and Plan (Free Text) Assessment: (1) Leukocytosis Assessment & Plan: On admission CODE SEPSIS (10/13/16) Criteria on admission: Leukocytosis 60.5, Tachycardic, Tachypnic, continues to improve Dr. Velazquez, ID consult: help appreciated Sputum Cx (10/22/16): +ESBL Meropenem IVPB Patient will need 3 weeks of antibiotics from 10/26/16 until . PICC placed Outpatient IV infusions to occur at home. However, patient does not qualify for SHARON at this time. Patient will be discharged home on Sunday11/03/16 for home infusions. Cdiff (10/13/16): negative Blood Cx (10/13/16): no growth for 5 days x 2 Urine Cx (10/13/16): no growth MRSA screen (10/13/16): not detected Status: Acute (2) Pleural effusion Assessment & Plan: Patient stable 10/24 Chest Xray shows Large loculated right pleural effusion with adjacent airspace consolidation. Venous congestion. s/p IR thoracentesis 10/24/16 with 600 cc removed. Patient had IR thoracentesis (10/17/16) with 500cc removed. Cytology studies: Transudative effusion, elevated neutrophils and lymphocytes CT A/P (10/15/16): RLL consolidation and pleural effusion. Mild left lung atelectasis. 6mm left lower lobe pulm nodule (should have repeat CT in 3-12 months based on malignancy risk). (see full report) CXR (10/16/16): moderate to large rt pleural effusion with consolidative changes in rt mid-lower lung zone. Venous congestion. Upper lobe granulomatous changes. Scattered nodularity in upper lung zones. Cardiomegaly. (see full report) CT Chest (10/16/16): Moderate to large right pleural effusion. Complete consolidation of right lower lobe and partial collapse/consolidation of of right middle lobe. Ground glass opacities. Cardiomegaly. (see full report) Status: Acute (3) Anemia Patient refusing transfusions at this time. Stable at this time. Iron 36. Ferrilicit IVPB Procrit TTS stool OB negative 4) Tachycardia Assessment & Plan: Patient with persistent tachycardia. Cardio consult placed 10/19. As per discussion with Dr. Hogan, will start patient on Cardizem 30 mg Q8H PO with holding paramaters. Patient's tachycardia improving slightly, but still HR >100. Will continue cardizem. Patient may go home with long acting Cardizem 120-180 mg PO daily dose per Dr Hogan once HR is controlled. 5) Seizure Assessment & Plan: Hepatic Encephalopathy on presentation. Currently resolved. Mentating without difficulty Gabapentin 300mg PO BID Ativan 0.5mg IVP PRN shakiness/anxiety Status: Acute (6) Liver failure Assessment & Plan: Secondary to alcoholic hepatitis w. decompensated liver failure Hyperammonemia on admission. 10/23/16 Ammonia 29. Lactulose D/C 10/25/16. LFTs and Alk phos are elevated secondary to alcohol abuse - Spirinolactone 50mg Daily - Rifaximin 550mg PO BID - Lasix 20mg IV daily Status: Chronic (7) Alcohol dependence Assessment & Plan: Hx of Benzo/Alcohol Abuse UDS negative Status: Chronic (8) Asthma Assessment & Plan: O2 saturation: 98% on Room Air - Pulmicort Respules 0.5mg Q12H substituted for home Advair - Duonebs Q6H [facility] Status: Chronic (9) Anxiety Assessment & Plan: Detox for anxiety/xanax in October of 2015 Psych consult: Dr. Smith, help appreciated -Ativan taper -Gabapentin 300mg PO TID, 400mg PO HS -CBT and supportive therapy Status: Chronic (10) Back pain Assessment & Plan: Pt reports history of 'herniated discs' Lidoderm patch Morphine 2mg IV q6h prn PT/OT eval ordered 10/23/16 Status: Chronic (11) Prophylactic measure Assessment & Plan: DVT: SCDs VTE: Heparin 5000 units q12h GI: Protonix IV daily PT ordered. Status: Acute Management as per Dr. Becerril. DC planning home.
[2016-11-01 23:44] LABS: BCR-ABL PRIOR RESULT NOT GIVEN; BCR-ABL SOURCE NOT GIVEN; P190 BCR-ABL1 NOT DETECTED; P210 BCR-ABL1 NOT DETECTED
[2016-11-02] MEDS: Albuterol-Ipratrop 3 mg / 0.5 (3 ml) UD INH SCH ×4 (02:09→19:45)
--- NOTE | 2016-11-02 03:00 | CP.PCM.PN ---
Subjective - Date & Time of Evaluation Date of Evaluation: 11/01/16 Time of Evaluation: 19:00 - Subjective Subjective: No complaints. Objective - Vital Signs/Intake and Output Vital Signs (last 24 hours): Temp Pulse Resp BP Pulse Ox 98 F 114 H 20 118/60 94 L 11/01/16 23:22 11/01/16 23:22 11/01/16 23:22 11/01/16 23:22 11/01/16 23:22 Intake and Output: 11/01/16 11/02/16 18:59 06:59 Intake Total 400 300 Output Total 800 Balance -400 300 - Medications Medications: Current Medications Albuterol/Ipratropium (Duoneb 3 Mg/0.5 Mg (3 Ml) Ud) 3 ml INH RQ6 [facility] Last Admin: 11/02/16 02:09 Dose: 3 ml Diltiazem HCl (Cardizem) 30 mg PO QID [facility] Last Admin: 11/01/16 21:20 Dose: 30 mg Diphenhydramine HCl (Benadryl) 25 mg PO HS PRN PRN Reason: Insomnia Last Admin: 11/01/16 21:23 Dose: 25 mg Epoetin Sean (Procrit) 2,000 u SC TTS [facility] Last Admin: 10/31/16 10:14 Dose: 2,000 u Epoetin Sean (Procrit) 3,000 unit SC TTS [facility] Last Admin: 10/31/16 10:14 Dose: 3,000 unit Folic Acid (Folic Acid) 1 mg PO DAILY [facility] Last Admin: 11/01/16 09:56 Dose: 1 mg Furosemide (Lasix) 40 mg IVP DAILY [facility] Last Admin: 11/01/16 09:55 Dose: 40 mg Gabapentin (Neurontin) 300 mg PO TID [facility] Last Admin: 11/01/16 17:27 Dose: 300 mg Gabapentin (Neurontin) 600 mg PO HS [facility] Last Admin: 11/01/16 21:20 Dose: 600 mg Guaifenesin (Mucinex La) 600 mg PO BID [facility] Last Admin: 11/01/16 17:30 Dose: 600 mg Meropenem 1 gm/ Sodium (Chloride) 100 mls @ 100 mls/hr IVPB Q8H [facility] Last Admin: 11/01/16 21:01 Dose: 100 mls/hr Ibuprofen (Motrin Tab) 400 mg PO Q6 PRN PRN Reason: fever temp above 100 Last Admin: 11/01/16 17:30 Dose: 400 mg Lidocaine (Lidoderm) 2 ea TD DAILY [facility] Last Admin: 11/01/16 10:02 Dose: Not Given Lorazepam (Ativan) 0.5 mg PO Q6H PRN PRN Reason: Anxiety Morphine Sulfate (Morphine) 2 mg IVP Q6 PRN PRN Reason: Pain, moderate (4-7) Last Admin: 11/01/16 22:38 Dose: 2 mg Pantoprazole Sodium (Protonix Inj) 40 mg IVP DAILY [facility] Last Admin: 11/01/16 09:55 Dose: 40 mg Trazodone HCl (Desyrel) 50 mg PO HS [facility] Last Admin: 11/01/16 21:20 Dose: 50 mg - Labs Labs: 10/31/16 06:56 10/31/16 06:56 PT 16.9 SECONDS (9.7-12.2) H 10/24/16 14:07 INR 1.5 10/24/16 14:07 APTT 44 SECONDS (21-34) H 10/24/16 14:07 - Head Exam Head Exam: ATRAUMATIC - Eye Exam Eye Exam: Normal appearance - ENT Exam ENT Exam: Mucous Membranes Dry - Respiratory Exam Respiratory Exam: Clear to Ausculation Bilateral - Cardiovascular Exam Cardiovascular Exam: +S1, +S2 - GI/Abdominal Exam GI & Abdominal Exam: Normal Bowel Sounds - Extremities Exam Extremities Exam: Normal Inspection Assessment and Plan (1) Leukocytosis Assessment & Plan: slowly improving BCR/ABL negative Status: Acute (2) Anemia Assessment & Plan: chronic disease Status: Acute (3) Coagulopathy Status: Acute
[2016-11-02] MEDS: Meropenem 1 GM in Sodium Chloride 0.9% 100 ML IVPB SCH ×3 (04:42→21:49)
[2016-11-02] MEDS: Lidocaine 5% Patch TD SCH (10:34)
[2016-11-02] MEDS: guaiFENesin 600 mg ER Tab PO SCH ×2 (10:34→17:37)
[2016-11-02] MEDS: Epoetin Alfa 3000 UNIT/ML Inj SC SCH (11:46)
[2016-11-02] MEDS: [UNRECOGNIZED DRUG - OTHER] SC SCH (11:47)
[2016-11-02 12:29] LABS: BASO # 0.1 K/uL (0.0-0.2); BASO % 0.5 % (0.0-2.0); EOS # 0.3 K/uL (0.0-0.7); EOS % 1.2 % (0.0-4.0); HEMATOCRIT 27.1 % (34.0-47.0); LYMPH # 2.6 K/uL (1.0-4.3); LYMPH % 9.9 % (20.0-40.0); MEAN CELL VOLUME 109.4 fL (81.0-99.0); MEAN CORPUSCULAR HEMOGLOBIN 33.9 pg (27.0-31.0); MEAN PLATELET VOLUME 9.5 fL (7.2-11.7); MONO # 0.7 K/uL (0.0-0.8); MONO % 2.8 % (0.0-10.0); NRBC % 0.1 % (0.0-2.0); PLATELET COUNT 480 K/uL (130-400); RED CELL DISTRIBUTION WIDTH 18.2 % (11.5-14.5); WHITE BLOOD COUNT 25.9 K/uL (4.8-10.8)
[2016-11-02 12:34] LABS: CHLORIDE 85 mmol/L (98-107); POTASSIUM 3.9 mmol/L (3.6-5.2); SODIUM 134 mmol/L (132-148)
[2016-11-02 12:36] LABS: AST/SGOT 116 U/L (14-36); BILIRUBIN,TOTAL 5.5 mg/dL (0.2-1.3); CARBON DIOXIDE 30 mmol/L (22-30); GFR AFRICAN-AMERICAN > 60
[2016-11-02 12:37] LABS: ALB/GLOB RATIO 0.9 (1.0-2.1); ALKALINE PHOSPHATASE 196 U/L (38-126); ALT/SGPT 48 U/L (9-52); BLOOD UREA NITROGEN 9 mg/dL (7-17); CALCIUM 8.2 mg/dl (8.6-10.4); GLUCOSE,RANDOM 123 mg/dL (65-105); TOTAL PROTEIN 6.9 g/dL (6.3-8.3)
[2016-11-02 13:49] LABS: EOSINOPHIL 2 % (0-4); NEUTROPHIL 75 % (50-75); REACTIVE LYMPHOCYTES 1 % (0-0); TOTAL CELLS COUNTED 100
--- NOTE | 2016-11-02 14:48 | CP.PCM.PN ---
Subjective - Date & Time of Evaluation Date of Evaluation: 11/02/16 Time of Evaluation: 08:00 - Subjective Subjective: wbc slowly coming down afeb no chest pain Objective - Vital Signs/Intake and Output Vital Signs (last 24 hours): Temp Pulse Resp BP Pulse Ox 98.6 F 120 H 20 116/62 95 11/02/16 07:49 11/02/16 07:49 11/02/16 07:49 11/02/16 10:33 11/02/16 07:49 Intake and Output: 11/02/16 11/02/16 06:59 18:59 Intake Total 300 340 Balance 300 340 - Medications Medications: Current Medications Albuterol/Ipratropium (Duoneb 3 Mg/0.5 Mg (3 Ml) Ud) 3 ml INH RQ6 [facility] Last Admin: 11/02/16 13:54 Dose: 3 ml Diltiazem HCl (Cardizem) 30 mg PO QID [facility] Last Admin: 11/02/16 13:22 Dose: 30 mg Diphenhydramine HCl (Benadryl) 25 mg PO HS PRN PRN Reason: Insomnia Last Admin: 11/01/16 21:23 Dose: 25 mg Epoetin Sean (Procrit) 2,000 u SC TTS [facility] Last Admin: 11/02/16 11:47 Dose: 2,000 u Epoetin Sean (Procrit) 3,000 unit SC TTS [facility] Last Admin: 11/02/16 11:46 Dose: 3,000 unit Folic Acid (Folic Acid) 1 mg PO DAILY [facility] Last Admin: 11/02/16 10:34 Dose: 1 mg Furosemide (Lasix) 40 mg IVP DAILY [facility] Last Admin: 11/02/16 10:33 Dose: 40 mg Gabapentin (Neurontin) 300 mg PO TID [facility] Last Admin: 11/02/16 13:25 Dose: 300 mg Gabapentin (Neurontin) 600 mg PO HS [facility] Last Admin: 11/01/16 21:20 Dose: 600 mg Guaifenesin (Mucinex La) 600 mg PO BID [facility] Last Admin: 11/02/16 10:34 Dose: 600 mg Meropenem 1 gm/ Sodium (Chloride) 100 mls @ 100 mls/hr IVPB Q8H [facility] Last Admin: 11/02/16 12:48 Dose: 100 mls/hr Ibuprofen (Motrin Tab) 400 mg PO Q6 PRN PRN Reason: fever temp above 100 Last Admin: 11/01/16 17:30 Dose: 400 mg Lidocaine (Lidoderm) 2 ea TD DAILY [facility] Last Admin: 11/02/16 10:34 Dose: Not Given Lorazepam (Ativan) 0.5 mg PO Q6H PRN PRN Reason: Anxiety Morphine Sulfate (Morphine) 2 mg IVP Q6 PRN PRN Reason: Pain, moderate (4-7) Last Admin: 11/02/16 10:31 Dose: 2 mg Pantoprazole Sodium (Protonix Inj) 40 mg IVP DAILY [facility] Last Admin: 11/02/16 10:31 Dose: 40 mg Trazodone HCl (Desyrel) 50 mg PO HS [facility] Last Admin: 11/01/16 21:20 Dose: 50 mg - Labs Labs: 11/02/16 12:02 11/02/16 12:02 PT 16.9 SECONDS (9.7-12.2) H 10/24/16 14:07 INR 1.5 10/24/16 14:07 APTT 44 SECONDS (21-34) H 10/24/16 14:07 - Constitutional Appears: Non-toxic - Head Exam Head Exam: NORMOCEPHALIC - Eye Exam Eye Exam: absent: Scleral icterus - ENT Exam ENT Exam: Mucous Membranes Dry - Neck Exam Neck Exam: absent: Lymphadenopathy - Respiratory Exam Respiratory Exam: Decreased Breath Sounds, Rhonchi - Cardiovascular Exam Cardiovascular Exam: REGULAR RHYTHM, +S1, +S2 - GI/Abdominal Exam GI & Abdominal Exam: Distended, Soft. absent: Tenderness - Rectal Exam Rectal Exam: Deferred - Exam Exam: NORMAL INSPECTION - Extremities Exam Extremities Exam: absent: Pedal Edema - Back Exam Back Exam: absent: CVA tenderness (L), CVA tenderness (R) - Neurological Exam Neurological Exam: Alert, Awake, Oriented x3 - Psychiatric Exam Psychiatric exam: Depressed - Skin Skin Exam: Dry, Intact Assessment and Plan (1) Liver failure Status: Chronic (2) Sepsis Status: Acute (3) Hepatic encephalopathy Status: Acute (4) Seizure Status: Acute - Assessment and Plan (Free Text) Assessment: renew merrem
--- NOTE | 2016-11-02 17:01 | CP.PCM.PN ---
Subjective - Date & Time of Evaluation Date of Evaluation: 11/02/16 Time of Evaluation: 08:00 - Subjective Subjective: Medicine Progress Note- Dr. Becerril's Service: Patient seen and examined at bedside this AM. Patient reports feeling better this AM. No SOB, CP, dysuria, fevers, chills. She continues to complain of abdominal pain. Patient is ambulating and had no reported issues overnight. Objective - Vital Signs/Intake and Output Vital Signs (last 24 hours): Temp Pulse Resp BP Pulse Ox 98.6 F 120 H 20 116/62 95 11/02/16 07:49 11/02/16 07:49 11/02/16 07:49 11/02/16 10:33 11/02/16 07:49 Intake and Output: 11/02/16 11/02/16 06:59 18:59 Intake Total 300 790 Balance 300 790 - Medications Medications: Current Medications Albuterol/Ipratropium (Duoneb 3 Mg/0.5 Mg (3 Ml) Ud) 3 ml INH RQ6 [facility] Last Admin: 11/02/16 13:54 Dose: 3 ml Diltiazem HCl (Cardizem) 30 mg PO QID [facility] Last Admin: 11/02/16 13:22 Dose: 30 mg Diphenhydramine HCl (Benadryl) 25 mg PO HS PRN PRN Reason: Insomnia Last Admin: 11/01/16 21:23 Dose: 25 mg Epoetin Sean (Procrit) 2,000 u SC TTS [facility] Last Admin: 11/02/16 11:47 Dose: 2,000 u Epoetin Sean (Procrit) 3,000 unit SC TTS [facility] Last Admin: 11/02/16 11:46 Dose: 3,000 unit Folic Acid (Folic Acid) 1 mg PO DAILY [facility] Last Admin: 11/02/16 10:34 Dose: 1 mg Furosemide (Lasix) 40 mg IVP DAILY [facility] Last Admin: 11/02/16 10:33 Dose: 40 mg Gabapentin (Neurontin) 300 mg PO TID [facility] Last Admin: 11/02/16 13:25 Dose: 300 mg Gabapentin (Neurontin) 600 mg PO HS [facility] Last Admin: 11/01/16 21:20 Dose: 600 mg Guaifenesin (Mucinex La) 600 mg PO BID [facility] Last Admin: 11/02/16 10:34 Dose: 600 mg Meropenem 1 gm/ Sodium (Chloride) 100 mls @ 100 mls/hr IVPB Q8H [facility] Last Admin: 11/02/16 12:48 Dose: 100 mls/hr Ibuprofen (Motrin Tab) 400 mg PO Q6 PRN PRN Reason: fever temp above 100 Last Admin: 11/01/16 17:30 Dose: 400 mg Lidocaine (Lidoderm) 2 ea TD DAILY [facility] Last Admin: 11/02/16 10:34 Dose: Not Given Lorazepam (Ativan) 0.5 mg PO Q6H PRN PRN Reason: Anxiety Morphine Sulfate (Morphine) 2 mg IVP Q6 PRN PRN Reason: Pain, moderate (4-7) Last Admin: 11/02/16 16:44 Dose: 2 mg Pantoprazole Sodium (Protonix Inj) 40 mg IVP DAILY [facility] Last Admin: 11/02/16 10:31 Dose: 40 mg Trazodone HCl (Desyrel) 50 mg PO HS [facility] Last Admin: 11/01/16 21:20 Dose: 50 mg - Labs Labs: 11/02/16 12:02 11/02/16 12:02 PT 16.9 SECONDS (9.7-12.2) H 10/24/16 14:07 INR 1.5 10/24/16 14:07 APTT 44 SECONDS (21-34) H 10/24/16 14:07 - Constitutional Appears: No Acute Distress, Chronically Ill - Head Exam Head Exam: ATRAUMATIC, NORMAL INSPECTION - Eye Exam Eye Exam: EOMI, Scleral icterus - ENT Exam ENT Exam: Mucous Membranes Moist - Neck Exam Neck Exam: Full ROM - Respiratory Exam Respiratory Exam: Clear to Ausculation Bilateral, NORMAL BREATHING PATTERN - Cardiovascular Exam Cardiovascular Exam: Tachycardia, +S1, +S2 - GI/Abdominal Exam GI & Abdominal Exam: Soft. absent: Distended, Tenderness - Extremities Exam Extremities Exam: Full ROM, Normal Inspection - Back Exam Back Exam: NORMAL INSPECTION - Neurological Exam Neurological Exam: Alert, Awake, Oriented x3 - Psychiatric Exam Psychiatric exam: Normal Affect, Normal Mood - Skin Skin Exam: Dry, Normal Color, Warm Assessment and Plan - Assessment and Plan (Free Text) Assessment: (1) Leukocytosis Assessment & Plan: On admission CODE SEPSIS (10/13/16) Criteria on admission: Leukocytosis 60.5, Tachycardic, Tachypnic, continues to improve Dr. Velazquez, ID consult: help appreciated Sputum Cx (10/22/16): +ESBL Meropenem IVPB Patient will need 3 weeks of antibiotics from 10/26/16 until . PICC placed Outpatient IV infusions to occur at home. However, patient does not qualify for SHARON at this time. Patient will be discharged home on Sunday11/03/16 for home infusions. Cdiff (10/13/16): negative Blood Cx (10/13/16): no growth for 5 days x 2 Urine Cx (10/13/16): no growth MRSA screen (10/13/16): not detected Status: Acute (2) Pleural effusion Assessment & Plan: Patient stable CTA 10/31/16 showed no PE and moderate right pleural effusion. Patient sating 95% on RA today. Monitor respiratory status. 10/24 Chest Xray shows Large loculated right pleural effusion with adjacent airspace consolidation. Venous congestion. s/p IR thoracentesis 10/24/16 with 600 cc removed. Patient had IR thoracentesis (10/17/16) with 500cc removed. Cytology studies: Transudative effusion, elevated neutrophils and lymphocytes CT A/P (10/15/16): RLL consolidation and pleural effusion. Mild left lung atelectasis. 6mm left lower lobe pulm nodule (should have repeat CT in 3-12 months based on malignancy risk). (see full report) CXR (10/16/16): moderate to large rt pleural effusion with consolidative changes in rt mid-lower lung zone. Venous congestion. Upper lobe granulomatous changes. Scattered nodularity in upper lung zones. Cardiomegaly. (see full report) CT Chest (10/16/16): Moderate to large right pleural effusion. Complete consolidation of right lower lobe and partial collapse/consolidation of of right middle lobe. Ground glass opacities. Cardiomegaly. (see full report) Status: Acute (3) Anemia H/H 8.10/26.9 this AM. Improved. Iron 36. Ferrilicit IVPB Procrit TTS stool OB negative 4) Tachycardia Assessment & Plan: Patient with persistent tachycardia. Cardio consult placed 10/19. As per discussion with Dr. Hogan, will start patient on Cardizem 30 mg Q6H PO with holding paramaters. Patient's tachycardia improving slightly, but still HR >100. Will titrate Cardizem up to 40 mg Q6H today. Monitor. Patient may go home with long acting Cardizem 120-180 mg PO daily dose per Dr Hogan once HR is controlled. 5) Seizure Assessment & Plan: Hepatic Encephalopathy on presentation. Currently resolved. Mentating without difficulty Gabapentin 300mg PO BID Ativan 0.5mg IVP PRN shakiness/anxiety Status: Acute (6) Liver failure Assessment & Plan: Secondary to alcoholic hepatitis w. decompensated liver failure Hyperammonemia on admission. 10/23/16 Ammonia 29. Lactulose D/C 10/25/16. LFTs and Alk phos are elevated secondary to alcohol abuse - Spirinolactone 50mg Daily - Rifaximin 550mg PO BID - Lasix 20mg IV daily Status: Chronic (7) Alcohol dependence Assessment & Plan: Hx of Benzo/Alcohol Abuse UDS negative Status: Chronic (8) Asthma Assessment & Plan: O2 saturation: 98% on Room Air - Pulmicort Respules 0.5mg Q12H substituted for home Advair - Duonebs Q6H [facility] Status: Chronic (9) Anxiety Assessment & Plan: Detox for anxiety/xanax in October of 2015 Psych consult: Dr. Smith, help appreciated -Ativan taper -Gabapentin 300mg PO TID, 400mg PO HS -CBT and supportive therapy Status: Chronic (10) Back pain Assessment & Plan: Pt reports history of 'herniated discs' Lidoderm patch Morphine 2mg IV q6h prn PT/OT eval ordered 10/23/16 Status: Chronic (11) Prophylactic measure Assessment & Plan: DVT: SCDs VTE: Heparin 5000 units q12h GI: Protonix IV daily PT ordered. Status: Acute Management as per Dr. Becerril. DC planning home with IV infusions until Nov 16 2016.
--- NOTE | 2016-11-02 17:11 | CP.PCM.PN ---
Subjective - Date & Time of Evaluation Date of Evaluation: 11/02/16 Time of Evaluation: 16:00 - Subjective Subjective: No complaints. Objective - Vital Signs/Intake and Output Vital Signs (last 24 hours): Temp Pulse Resp BP Pulse Ox 98.6 F 120 H 20 116/62 95 11/02/16 07:49 11/02/16 07:49 11/02/16 07:49 11/02/16 10:33 11/02/16 07:49 Intake and Output: 11/02/16 11/02/16 06:59 18:59 Intake Total 300 790 Balance 300 790 - Medications Medications: Current Medications Albuterol/Ipratropium (Duoneb 3 Mg/0.5 Mg (3 Ml) Ud) 3 ml INH RQ6 [facility] Last Admin: 11/02/16 13:54 Dose: 3 ml Diltiazem HCl (Cardizem) 40 mg PO QID [facility] Diphenhydramine HCl (Benadryl) 25 mg PO HS PRN PRN Reason: Insomnia Last Admin: 11/01/16 21:23 Dose: 25 mg Epoetin Sean (Procrit) 2,000 u SC TTS [facility] Last Admin: 11/02/16 11:47 Dose: 2,000 u Epoetin Sean (Procrit) 3,000 unit SC TTS [facility] Last Admin: 11/02/16 11:46 Dose: 3,000 unit Folic Acid (Folic Acid) 1 mg PO DAILY [facility] Last Admin: 11/02/16 10:34 Dose: 1 mg Furosemide (Lasix) 40 mg IVP DAILY [facility] Last Admin: 11/02/16 10:33 Dose: 40 mg Gabapentin (Neurontin) 300 mg PO TID [facility] Last Admin: 11/02/16 13:25 Dose: 300 mg Gabapentin (Neurontin) 600 mg PO HS [facility] Last Admin: 11/01/16 21:20 Dose: 600 mg Guaifenesin (Mucinex La) 600 mg PO BID [facility] Last Admin: 11/02/16 10:34 Dose: 600 mg Meropenem 1 gm/ Sodium (Chloride) 100 mls @ 100 mls/hr IVPB Q8H [facility] Last Admin: 11/02/16 12:48 Dose: 100 mls/hr Ibuprofen (Motrin Tab) 400 mg PO Q6 PRN PRN Reason: fever temp above 100 Last Admin: 11/01/16 17:30 Dose: 400 mg Lidocaine (Lidoderm) 2 ea TD DAILY [facility] Last Admin: 11/02/16 10:34 Dose: Not Given Lorazepam (Ativan) 0.5 mg PO Q6H PRN PRN Reason: Anxiety Morphine Sulfate (Morphine) 2 mg IVP Q6 PRN PRN Reason: Pain, moderate (4-7) Last Admin: 11/02/16 16:44 Dose: 2 mg Pantoprazole Sodium (Protonix Inj) 40 mg IVP DAILY [facility] Last Admin: 11/02/16 10:31 Dose: 40 mg Trazodone HCl (Desyrel) 50 mg PO HS [facility] Last Admin: 11/01/16 21:20 Dose: 50 mg - Labs Labs: 11/02/16 12:02 11/02/16 12:02 PT 16.9 SECONDS (9.7-12.2) H 10/24/16 14:07 INR 1.5 10/24/16 14:07 APTT 44 SECONDS (21-34) H 10/24/16 14:07 - Head Exam Head Exam: ATRAUMATIC - Eye Exam Eye Exam: Normal appearance, Scleral icterus - ENT Exam ENT Exam: Mucous Membranes Dry - Respiratory Exam Respiratory Exam: NORMAL BREATHING PATTERN - Cardiovascular Exam Cardiovascular Exam: +S1, +S2 - GI/Abdominal Exam GI & Abdominal Exam: Normal Bowel Sounds - Extremities Exam Extremities Exam: Normal Inspection Assessment and Plan (1) Leukocytosis Assessment & Plan: improving with antibiotics BCR/ABL negative Status: Acute (2) Anemia Assessment & Plan: chronic disease Status: Acute (3) Coagulopathy Status: Acute
[2016-11-03] MEDS: Albuterol-Ipratrop 3 mg / 0.5 (3 ml) UD INH SCH ×3 (02:39→14:03)
[2016-11-03] MEDS: Meropenem 1 GM in Sodium Chloride 0.9% 100 ML IVPB SCH ×2 (05:06→13:21)
[2016-11-03 08:18] VITALS: BP 109/58; TEMP 98.8
[2016-11-03 09:55] VITALS: PULSE 85; O2SAT 97
[2016-11-03] MEDS: Lidocaine 5% Patch TD SCH (09:55)
[2016-11-03] MEDS: guaiFENesin 600 mg ER Tab PO SCH (10:01)
--- NOTE | 2016-11-03 11:25 | CP.PCM.PN ---
Subjective - Date & Time of Evaluation Date of Evaluation: 11/03/16 Time of Evaluation: 08:00 - Subjective Subjective: Medicine Progress Note- Dr. Becerril's service: Patient seen and examined at bedside this AM. Patient states she is ready to go home. Patient counselled on alcohol cessation. Arrangements for home IV infusions completed as per Dr. Becerril. Objective - Vital Signs/Intake and Output Vital Signs (last 24 hours): Temp Pulse Resp BP Pulse Ox 98.8 F 85 20 109/58 L 97 11/03/16 08:17 11/03/16 08:30 11/03/16 08:17 11/03/16 10:01 11/03/16 08:30 Intake and Output: 11/03/16 11/03/16 06:59 18:59 Intake Total 340 Balance 340 - Medications Medications: Current Medications Albuterol/Ipratropium (Duoneb 3 Mg/0.5 Mg (3 Ml) Ud) 3 ml INH RQ6 [facility] Last Admin: 11/03/16 08:15 Dose: 3 ml Diltiazem HCl (Cardizem) 30 mg PO Q8H [facility] Diphenhydramine HCl (Benadryl) 25 mg PO HS PRN PRN Reason: Insomnia Last Admin: 11/02/16 21:51 Dose: 25 mg Epoetin Sean (Procrit) 2,000 u SC TTS [facility] Last Admin: 11/02/16 11:47 Dose: 2,000 u Epoetin Sean (Procrit) 3,000 unit SC TTS [facility] Last Admin: 11/02/16 11:46 Dose: 3,000 unit Folic Acid (Folic Acid) 1 mg PO DAILY [facility] Last Admin: 11/03/16 10:01 Dose: 1 mg Furosemide (Lasix) 40 mg IVP DAILY [facility] Last Admin: 11/03/16 10:01 Dose: 40 mg Gabapentin (Neurontin) 300 mg PO TID [facility] Last Admin: 11/03/16 10:01 Dose: 300 mg Gabapentin (Neurontin) 600 mg PO HS [facility] Last Admin: 11/02/16 21:51 Dose: 600 mg Guaifenesin (Mucinex La) 600 mg PO BID [facility] Last Admin: 11/03/16 10:01 Dose: 600 mg Meropenem 1 gm/ Sodium (Chloride) 100 mls @ 100 mls/hr IVPB Q8H [facility] Last Admin: 11/03/16 05:06 Dose: 100 mls/hr Ibuprofen (Motrin Tab) 400 mg PO Q6 PRN PRN Reason: fever temp above 100 Last Admin: 11/01/16 17:30 Dose: 400 mg Lidocaine (Lidoderm) 2 ea TD DAILY [facility] Last Admin: 11/03/16 09:55 Dose: Not Given Lorazepam (Ativan) 0.5 mg PO Q6H PRN PRN Reason: Anxiety Morphine Sulfate (Morphine) 2 mg IVP Q6 PRN PRN Reason: Pain, moderate (4-7) Last Admin: 11/03/16 11:09 Dose: 2 mg Trazodone HCl (Desyrel) 50 mg PO HS [facility] Last Admin: 11/02/16 21:51 Dose: 50 mg - Labs Labs: 11/02/16 12:02 11/02/16 12:02 PT 16.9 SECONDS (9.7-12.2) H 10/24/16 14:07 INR 1.5 10/24/16 14:07 APTT 44 SECONDS (21-34) H 10/24/16 14:07 - Constitutional Appears: No Acute Distress - Head Exam Head Exam: NORMAL INSPECTION, NORMOCEPHALIC - Eye Exam Eye Exam: EOMI, Scleral icterus - ENT Exam ENT Exam: Mucous Membranes Moist - Respiratory Exam Respiratory Exam: Clear to Ausculation Bilateral, NORMAL BREATHING PATTERN - Cardiovascular Exam Cardiovascular Exam: REGULAR RHYTHM, +S1, +S2 - GI/Abdominal Exam GI & Abdominal Exam: Soft, Tenderness, Organomegaly - Extremities Exam Extremities Exam: Full ROM, Normal Inspection - Neurological Exam Neurological Exam: Alert, Awake, Oriented x3 - Psychiatric Exam Psychiatric exam: Normal Affect, Normal Mood Assessment and Plan - Assessment and Plan (Free Text) Assessment: (1) Leukocytosis Assessment & Plan: On admission CODE SEPSIS (10/13/16) Criteria on admission: Leukocytosis 60.5, Tachycardic, Tachypnic, continues to improve Dr. Velazquez, ID consult: help appreciated Sputum Cx (10/22/16): +ESBL Meropenem IVPB Patient will need 3 weeks of antibiotics from 10/26/16 until . PICC placed Outpatient IV infusions to occur at home. However, patient does not qualify for [facility] at this time. Patient will be discharged home on Sunday11/03/16 for home infusions. Cdiff (10/13/16): negative Blood Cx (10/13/16): no growth for 5 days x 2 Urine Cx (10/13/16): no growth MRSA screen (10/13/16): not detected Status: Acute (2) Pleural effusion Assessment & Plan: Patient stable CTA 10/31/16 showed no PE and moderate right pleural effusion. Patient sating 95% on RA today. Monitor respiratory status. 10/24 Chest Xray shows Large loculated right pleural effusion with adjacent airspace consolidation. Venous congestion. s/p IR thoracentesis 10/24/16 with 600 cc removed. Patient had IR thoracentesis (10/17/16) with 500cc removed. Cytology studies: Transudative effusion, elevated neutrophils and lymphocytes CT A/P (10/15/16): RLL consolidation and pleural effusion. Mild left lung atelectasis. 6mm left lower lobe pulm nodule (should have repeat CT in 3-12 months based on malignancy risk). (see full report) CXR (10/16/16): moderate to large rt pleural effusion with consolidative changes in rt mid-lower lung zone. Venous congestion. Upper lobe granulomatous changes. Scattered nodularity in upper lung zones. Cardiomegaly. (see full report) CT Chest (10/16/16): Moderate to large right pleural effusion. Complete consolidation of right lower lobe and partial collapse/consolidation of of right middle lobe. Ground glass opacities. Cardiomegaly. (see full report) Status: Acute (3) Anemia H/H 8.4/27.9 yesterday AM. Improved. stool OB negative monitor 4) Tachycardia Assessment & Plan: Patient with persistent tachycardia. Cardio consult placed 10/19. As per discussion with Dr. Hogan, will start patient on Cardizem 30 mg Q8H PO with holding paramaters. Patient's tachycardia improved, HR 80's today. Will D/C with Cardizem ER 120 mg PO daily dose per Dr Hogan. 5) Seizure Assessment & Plan: Hepatic Encephalopathy on presentation. Currently resolved. Mentating without difficulty Gabapentin 300mg PO BID Ativan 0.5mg IVP PRN shakiness/anxiety Status: Acute (6) Liver failure Assessment & Plan: Secondary to alcoholic hepatitis w. decompensated liver failure Hyperammonemia on admission. 10/23/16 Ammonia 29. Lactulose D/C 10/25/16. LFTs and Alk phos are elevated secondary to alcohol abuse - Spirinolactone 50mg Daily - Lasix 40 PO daily Status: Chronic (7) Alcohol dependence Assessment & Plan: Hx of Benzo/Alcohol Abuse UDS negative Status: Chronic (8) Asthma Assessment & Plan: O2 saturation: 98% on Room Air - Pulmicort Respules 0.5mg Q12H substituted for home Advair - Duonebs Q6H [facility] Status: Chronic (9) Anxiety Assessment & Plan: Detox for anxiety/xanax in October of 2015 Psych consult: Dr. Smith, help appreciated -Ativan taper -Gabapentin 300mg PO TID, 400mg PO HS -CBT and supportive therapy Status: Chronic (10) Back pain Assessment & Plan: Pt reports history of 'herniated discs' Patient d/c with 20 tabs of Tramadol to take PRN every 8H for severe pain. Status: Chronic (11) Prophylactic measure Assessment & Plan: DVT: SCDs VTE: Heparin 5000 units q12h GI: Protonix IV daily PT ordered. Status: Acute Management as per Dr. Becerril. DC planning home with IV infusions until Nov 16 2016.
[2016-11-03 13:51] LABS: BASO # 0.2 K/uL (0.0-0.2); BASO % 0.9 % (0.0-2.0); EOS # 0.2 K/uL (0.0-0.7); HEMATOCRIT 27.3 % (34.0-47.0); LYMPH # 2.5 K/uL (1.0-4.3); LYMPH % 10.1 % (20.0-40.0); MEAN CELL VOLUME 108.9 fL (81.0-99.0); MEAN CORPUSCULAR HEMOGLOBIN 34.6 pg (27.0-31.0); MEAN CORPUSCULAR HGB CONC 31.7 g/dL (33.0-37.0); MEAN PLATELET VOLUME 8.9 fL (7.2-11.7); MONO # 1.2 K/uL (0.0-0.8); MONO % 4.8 % (0.0-10.0); NRBC % 0.2 % (0.0-2.0); RED CELL DISTRIBUTION WIDTH 18.5 % (11.5-14.5); WHITE BLOOD COUNT 25.2 K/uL (4.8-10.8)
[2016-11-03 14:21] LABS: SODIUM 133 mmol/L (132-148)
[2016-11-03 14:23] LABS: BILIRUBIN,TOTAL 6.1 mg/dL (0.2-1.3); CARBON DIOXIDE 28 mmol/L (22-30); GFR AFRICAN-AMERICAN > 60
[2016-11-03 14:24] LABS: ALB/GLOB RATIO 0.9 (1.0-2.1); ALKALINE PHOSPHATASE 207 U/L (38-126); ALT/SGPT 45 U/L (9-52); AST/SGOT 92 U/L (14-36); BLOOD UREA NITROGEN 9 mg/dL (7-17); CALCIUM 8.1 mg/dl (8.6-10.4); GLUCOSE,RANDOM 99 mg/dL (65-105); TOTAL PROTEIN 6.9 g/dL (6.3-8.3)
[2016-11-03 14:56] LABS: CHLORIDE 92 mmol/L (98-107)
--- NOTE | 2016-11-10 10:07 | PN ---
DATE: 10/18/2016 The patient is tachycardic. However, she is a symptomatic. Feeling better. CHEST: symmetrical. HEART: Regular. ABDOMEN: Soft. PLAN: Supportive Care. Fara Quintero MD cc: [id number] TT: 10/18/2016 11:12:56 Confirmation # [id number] Dictation # [id number] 11/10/2016 09:06:04
--- NOTE | 2016-11-24 11:28 | DS ---
The patient admitted to the hospital with chief complaint of weakness, fatigue, tiredness, liver fail ure. The patient placed on bedrest, lactulose, supportive care. The patient showed very slow improv ement. Discharged to be followed as outpatient. DIAGNOSES: liver failure, alcoholic cirrhosis. Fara Quintero MD cc: [phone] TT: 11/24/2016 10:13:38 en 11/28/2016 07:16:56
== END 2016-11-03 14:50 | disposition home or self-care (01) | DRG 584 ==
LOC: C.ER 04:09 → C.9I 06:06 → C.3T 10-20 15:03
PROVIDERS: ADMIT Internal Medicine Pulmonary Disease; ATTEND Internal Medicine Pulmonary Disease
PROC: 0W993ZZ Drainage of Right Pleural Cavity, Percutaneous Approach (ICD-10-PCS; principal; 2016-10-16)
PROC: 0W993ZZ Drainage of Right Pleural Cavity, Percutaneous Approach (ICD-10-PCS; 2016-10-24)
DX: A41.9 Sepsis, unspecified organism (principal); J15.6 Pneumonia due to other Gram-negative bacteria; G93.41 Metabolic encephalopathy; K70.31 Alcoholic cirrhosis of liver with ascites; J90 Pleural effusion, not elsewhere classified; D68.9 Coagulation defect, unspecified; E87.6 Hypokalemia; B96.1 Klebsiella pneumoniae [K. pneumoniae] as the cause of diseases classified elsewhere; K70.11 Alcoholic hepatitis with ascites; K70.40 Alcoholic hepatic failure without coma; G40.909 Epilepsy, unspecified, not intractable, without status epilepticus; Z79.52 Long term (current) use of systemic steroids; D63.8 Anemia in other chronic diseases classified elsewhere; F10.20 Alcohol dependence, uncomplicated; E66.9 Obesity, unspecified; I10 Essential (primary) hypertension; J45.909 Unspecified asthma, uncomplicated; Z81.1 Family history of alcohol abuse and dependence; G47.00 Insomnia, unspecified; E26.9 Hyperaldosteronism, unspecified; D72.823 Leukemoid reaction

== ENCOUNTER 2016-11-06 16:59 | Inpatient (IN) | payer OTHER ==
[2016-11-06 18:24] VITALS: BMI 25.2
--- NOTE | 2016-11-06 19:33 | C.PDOC ---
History Of Present Illness 31 y/o female with past medical history of alcoholism and liver failure presents to ED with c/o RUQ abdominal pain. Denies fever, chills, nausea, vomiting, or other associated symptoms. Time Seen by Provider: 11/06/16 19:32 Chief Complaint (Nursing): Abdominal Pain History Per: Patient History/Exam Limitations: no limitations Onset/Duration Of Symptoms: Persistent Current Symptoms Are (Timing): Still Present Pain Scale Rating Of: 4 Location Of Pain/Discomfort: RUQ Radiation Of Pain To:: None Quality Of Discomfort: "Pain" Associated Symptoms: denies: Fever, Nausea, Vomiting, Diarrhea, Urinary Symptoms Recent travel outside of the [place]: No Past Medical History Reviewed: Historical Data, Nursing Documentation, Vital Signs Vital Signs: Last Vital Signs Temp 98.3 F 11/06/16 18:24 Pulse 114 H 11/06/16 18:24 Resp 20 11/06/16 18:24 BP 126/82 11/06/16 18:24 Pulse Ox 94 L 11/06/16 19:42 - Medical History PMH: Anxiety, Asthma, HTN, Seizures Other PMH: liver failure - First To File Procedures DETOXIFICATION SERVICES FOR SUBSTANCE ABUSE TREATMENT (11/09/15) DRAINAGE OF RIGHT PLEURAL CAVITY, PERCUTANEOUS APPROACH (10/13/16) Family History: States: Unknown Family Hx - Social History Hx Alcohol Use: Yes (former) Hx Substance Use: No - Immunization History Hx Tetanus Toxoid Vaccination: No Hx Influenza Vaccination: No Hx Pneumococcal Vaccination: No Review Of Systems Constitutional: Negative for: Fever, Chills Eyes: Positive for: Other (jaundiced conjunctiva) ENT: Negative for: Throat Pain Cardiovascular: Negative for: Chest Pain, Palpitations Respiratory: Negative for: Shortness of Breath, Wheezing Gastrointestinal: Positive for: Abdominal Pain. Negative for: Nausea, Vomiting , Diarrhea Genitourinary: Negative for: Dysuria Skin: Positive for: Jaundice. Negative for: Rash Neurological: Negative for: Headache, Dizziness Psych: Positive for: Anxiety Physical Exam - Physical Exam Appears: Chronically Ill Skin: Warm, Dry, Jaundice Head: Atraumatic, Normacephalic Eye(s): bilateral: Normal Inspection, PERRL, EOMI, Scleral Icterus Oral Mucosa: Moist Neck: Trachea Midline, Supple Chest: Symmetrical Cardiovascular: Rhythm Regular Respiratory: No Rales, No Rhonchi, No Wheezing Gastrointestinal/Abdominal: Soft, Tenderness (RUQ), Distention, Guarding ( voluntary), No Rebound, Other ((+) fluid wave) Back: Normal Inspection Extremity: Normal ROM Extremity: Bilateral: Atraumatic, Normal Color And Temperature, Normal ROM Neurological/Psych: Oriented x3, Normal Speech Gait: Steady ED Course And Treatment - Laboratory Results Result Diagrams: 11/06/16 20:11 11/06/16 20:11 O2 Sat by Pulse Oximetry: 94 Pulse Ox Interpretation: Normal Progress Note: Dilaudid, pepcid, zofran, IVFs. Bloodwork, EKG ordered. Disposition Discussed With : Virginia Carty Comment: accepted the pt on his service and tookover the care at 10:53 PM Doctor Will See Patient In The: ED Counseled Patient/Family Regarding: Studies Performed, Diagnosis - Disposition Disposition: HOSPITALIZED Disposition Time: 19:33 Condition: FAIR - Clinical Impression Clinical Impression: Abdominal pain, Liver failure, Anemia, Jaundice - Scribe Statement The provider has reviewed the documentation as recorded by the Aditya Munoz Provider Scribe Attestation: All medical record entries made by the Diibe were at my direction and personally dictated by me. I have reviewed the chart and agree that the record accurately reflects my personal performance of the history, physical exam, medical decision making, and the department course for this patient. I have also personally directed, reviewed, and agree with the discharge instructions and disposition. Decision To Admit - Pt Status Changed To: Hospital Disposition Of: Inpatient - Admit Certification Admit to Inpatient:: After my assessment, the patient will require hospitalization for at least two midnights. This is because of the severity of symptoms shown, intensity of services needed, and/or the medical risk in this patient being treated as an outpatient. - InPatient: Physician Admission Certification:: After my assessment, the patient will require hospitalization for at least two midnights. This is because of the severity of symptoms shown, intensity of services needed, and/or the medical risk in this patient being treated as an outpatient. - . Bed Request Type: Regular Admitting Physician: Virginia Carty Patient Diagnosis: Abdominal pain, Liver failure, Anemia, Jaundice
[2016-11-06] MEDS ORDERED: HYDROmorphone 1 mg/ml ISec IVP STA (19:34)
[2016-11-06] MEDS ORDERED: Sodium Chloride 0.9% 1,000 ML IV ONE (19:34)
[2016-11-06] MEDS ORDERED: HYDROmorphone 1 mg/ml ISec ONE ×2 (19:52→23:21)
[2016-11-06 20:19] LABS: BASO # 0.2 K/uL (0.0-0.2); EOS # 0.1 K/uL (0.0-0.7); EOS % 0.5 % (0.0-4.0)
[2016-11-06 20:25] LABS: CHLORIDE 94 mmol/L (98-107)
[2016-11-06 20:26] LABS: POTASSIUM 3.7 mmol/L (3.6-5.2); SODIUM 133 mmol/L (132-148)
[2016-11-06 20:28] LABS: ALB/GLOB RATIO 0.8 (1.0-2.1); ALKALINE PHOSPHATASE 187 U/L (38-126); ALT/SGPT 44 U/L (9-52); AST/SGOT 114 U/L (14-36); BILIRUBIN,TOTAL 5.5 mg/dL (0.2-1.3); BLOOD UREA NITROGEN 6 mg/dL (7-17); CARBON DIOXIDE 29 mmol/L (22-30); GFR AFRICAN-AMERICAN > 60; TOTAL PROTEIN 6.7 g/dL (6.3-8.3)
[2016-11-06 20:29] LABS: CALCIUM 8.6 mg/dl (8.6-10.4); GLUCOSE,RANDOM 90 mg/dL (65-105)
[2016-11-06 20:34] LABS: HEMATOCRIT 28.4 % (34.0-47.0); LYMPH # 2.7 K/uL (1.0-4.3); LYMPH % 14.3 % (20.0-40.0); MEAN CELL VOLUME 106.6 fL (81.0-99.0); MEAN CORPUSCULAR HGB CONC 32.8 g/dL (33.0-37.0); MEAN PLATELET VOLUME 8.9 fL (7.2-11.7); MONO # 0.9 K/uL (0.0-0.8); MONO % 4.9 % (0.0-10.0); NRBC % 0.2 % (0.0-2.0); RED CELL DISTRIBUTION WIDTH 17.8 % (11.5-14.5)
[2016-11-06 20:38] LABS: INR 1.4
[2016-11-06] MEDS ORDERED: Piperacillin/Tazobact 3.375 gm 100 ML IVPB STA (20:45)
[2016-11-06 21:13] LABS: RBC URINE < 1 /hpf (0-3); URINE BACTERIA RARE (<OCC); URINE BILIRUBIN 2+ (NEGATIVE); URINE BLOOD NEGATIVE (NEGATIVE); URINE GLUCOSE (UA) NORMAL (Normal); URINE KETONE NEGATIVE (NEGATIVE); URINE LEUKOCYTE ESTERASE NEG Leu/uL (Negative); URINE PROTEIN 1+ mg/dL (NEGATIVE); WBC URINE 2 /hpf (0-5)
[2016-11-06 21:15] LABS: URINE COLOR AMBER (YELLOW)
[2016-11-06] MEDS ORDERED: Iohexol 300 100 ML IJ ONE (21:43)
[2016-11-06] MEDS ORDERED: Piperacillin/Tazobact 3.375 gm 100 ML IVPB ONE (21:53)
[2016-11-06] MEDS ORDERED: Albuterol HFA 90 mcg/actuation (8 g) IH PRN (23:10)
[2016-11-06] MEDS ORDERED: Home Med 1 UNIT (Meropenem [Merrem Iv] 1 GM) IVPB SCH (23:15)
[2016-11-06] MEDS: HYDROmorphone 0.5 mg/0.5 ml ISec IVP PRN (23:25)
[2016-11-06] MEDS: Meropenem 1 GM in Sodium Chloride 0.9% 100 ML IVPB SCH (23:38)
[2016-11-07] MEDS: HYDROmorphone 0.5 mg/0.5 ml ISec IVP PRN ×3 (06:00→18:43)
[2016-11-07] MEDS: Meropenem 1 GM in Sodium Chloride 0.9% 100 ML IVPB SCH ×4 (08:22→17:21)
--- NOTE | 2016-11-07 08:56 | CP.PCM.CON ---
<Mckenna Velasquez - Last Filed: 11/07/16 08:53> History of Present Illness - History of Present Illness History of Present Illness: Gastroenterology Fellow/PGY4 Consult Note 31 year old female with history of Alcoholic cirrhosis, Hypertension, Asthma, and Anxiety presenting with nausea and vomiting. Of note, multiple recent hospitalizations due to decompensated cirrhosis 2/2 hepatic encephalopathy, alcoholic hepatitis, and acute liver failure transferred to [facility] and endorsed re-admission within 24 hours on 10/13 to [facility] and discharge 11/03 for sepsis 2/2 ESBL HCAP. Patient to complete 3 weeks of Meropenem, last dose on 04/17 via PICC line. She notes during all of her admission since August 2016 she has had abdominal, nausea, and intermittent vomiting. After discharge on 11/03, she notes loss of appetite, nausea, and six episodes of bilious vomiting. She endorses vomiting of her medications on Sunday and Sunday. Denies dysphagia, odynophagia, heartburn, indigestion, bloating, diarrhea, constipation, melena, hematochezia, hematemesis, leg swelling, confusion, fever, chills, sweats. She notes due to frequent NPO status and liquid diet with hospitalizations a weight change of 217 to 160 pounds since August 2016. Denies alcohol use. No EGD or colonoscopy. Family- denies colon cancer Social-denies tobacco or illicit drug, endorses sobriety for one year Surgery-right ankle surgery Review of Systems - Review of Systems Review of Systems: A 12-point review of systems negative except for as above Past Patient History - Infectious Disease Hx of Infectious Diseases: None - Past Medical History & Family History Past Medical History?: Yes - Past Social History Smoking Status: Never Smoked - CARDIAC Hx Hypertension: Yes - PULMONARY Hx Asthma: Yes - NEUROLOGICAL Hx Neurological Disorder: No Hx Seizures: Yes - HEENT Hx HEENT Problems: No - RENAL Hx Chronic Kidney Disease: No - ENDOCRINE/METABOLIC Hx Endocrine Disorders: No - HEMATOLOGICAL/ONCOLOGICAL Hx Human Immunodeficiency Virus (HIV): No - INTEGUMENTARY Hx Eczema: Yes - MUSCULOSKELETAL/RHEUMATOLOGICAL Hx Falls: Yes Hx Herniated Disk: Yes (2 weeks ago) - GASTROINTESTINAL Hx Gastrointestinal Disorders: No Hx Liver Failure: (liver problems) Other/Comment: Liver rupture Jul 2016 - GENITOURINARY/GYNECOLOGICAL Hx Genitourinary Disorders: No - PSYCHIATRIC Hx Anxiety: Yes Hx Substance Use: No - SURGICAL HISTORY Hx Surgeries: Yes Hx Section: Yes Hx Orthopedic Surgery: Yes - ANESTHESIA Hx Anesthesia: Yes Hx Anesthesia Reactions: No Hx Malignant Hyperthermia: No Meds Allergies/Adverse Reactions: Allergies Allergy/AdvReac Type Severity Reaction Status Date / Time No Known Allergies Allergy Verified 10/13/16 04:36 - Medications Medications: Current Medications Albuterol (Ventolin Hfa 90 Mcg/Actuation (8 G)) 1 puff IH RQ6 PRN PRN Reason: Shortness of Breath Chlordiazepoxide (Librium) 5 mg PO Q8 PRN PRN Reason: Agitation Stop: 11/09/16 23:13 Last Admin: 11/07/16 01:45 Dose: 5 mg Fluticasone Propionate (Flonase) 1 spr NS DAILY [facility] Folic Acid (Folic Acid) 1 mg PO DAILY [facility] Furosemide (Lasix) 20 mg PO DAILY [facility] Gabapentin (Neurontin) 300 mg PO TID [facility] Home Med (Meropenem [Merrem Iv]) 1 gm IVPB Q8H [facility] Hydromorphone HCl (Dilaudid) 0.5 mg IVP Q6H PRN PRN Reason: Pain, moderate (4-7) Stop: 11/08/16 23:13 Last Admin: 11/07/16 06:00 Dose: 0.5 mg Lactulose (Enulose) 20 gm PO HS [facility] Spironolactone (Aldactone) 50 mg PO DAILY [facility] Thiamine HCl (Vitamin B1 Tab) 100 mg PO DAILY [facility] Tramadol HCl (Ultram) 50 mg PO Q6H PRN PRN Reason: Pain, severe (8-10) Physical Exam - Constitutional Appears: Non-toxic, No Acute Distress, Chronically Ill - Head Exam Head Exam: ATRAUMATIC, NORMOCEPHALIC - Eye Exam Eye Exam: EOMI, PERRL Pupil Exam: PERRL. absent: Miosis, Mydriatic - ENT Exam ENT Exam: Mucous Membranes Moist, Normal Oropharynx - Neck Exam Neck exam: Positive for: Full Rom, Normal Inspection - Respiratory Exam Respiratory Exam: Clear to Auscultation Bilateral. absent: Rales, Rhonchi, Wheezes - Cardiovascular Exam Cardiovascular Exam: RRR, +S1, +S2. absent: Gallop, Rubs - GI/Abdominal Exam GI & Abdominal Exam: Normal Bowel Sounds, Soft, Tenderness. absent: Distended, Firm, Guarding, Organomegaly, Rebound, Rigid Additional comments: B/L LQ tenderness - Extremities Exam Extremities exam: Positive for: normal inspection. Negative for: pedal edema - Neurological Exam Neurological exam: Alert, Oriented x3 Additional comments: mild B/L hand tremor - Psychiatric Exam Psychiatric exam: Normal Affect, Normal Mood - Skin Skin Exam: Dry, Intact, Normal Color, Warm Results - Vital Signs Recent Vital Signs: Last Vital Signs Temp 98.2 F 11/07/16 07:05 Pulse 119 H 11/07/16 07:05 Resp 20 11/07/16 07:05 BP 109/70 11/07/16 07:05 Pulse Ox 93 L 11/07/16 07:05 - Labs Result Diagrams: 11/06/16 20:11 11/06/16 20:11 Assessment & Plan - Assessment and Plan (Free Text) Assessment: 31 year old female with history of Alcoholic cirrhosis, Hypertension, Asthma, and Anxiety presenting with nausea and vomiting. Of note, multiple recent hospitalizations due to decompensated cirrhosis 2/2 hepatic encephalopathy, alcoholic hepatitis, and acute liver failure transferred to [facility] and endorsed re-admission within 24 hours on 10/13 to [facility] and discharge 11/03 for sepsis 2/2 ESBL HCAP on 3 weeks of Meropenem (last dose 11/08/16) No EGD or colonoscopy. Plan: >DDx: medication side effect, infection, Gastritis >regular diet as tolerated >supportive care; antiemetics, PPI >active treatment of ESBL HCAP on Merrem >MELD 20, DF 35.9 >liver function tests continue to improve >continue Lactulose, titrate to 2-3 bowel movements per day >continue diuretics, Lasix 20mg, spironolactone 50mg - increase dose if signs of volume overload/ascites >strict I&Os >pending Ultrasound to evaluate for ascites >if ascites present, diagnostic and therapeutic paracentesis with fluid analysis >previous negative Hepatitis panel, CAROLYN, ASMA, AMA >endorsed sobriety, alcohol cessation counselled provided >established care at [place] - appointment in 2 weeks for transplant evaluation <Aman Silver - Last Filed: 11/07/16 09:34> Meds - Medications Medications: Current Medications Albuterol (Ventolin Hfa 90 Mcg/Actuation (8 G)) 1 puff IH RQ6 PRN PRN Reason: Shortness of Breath Chlordiazepoxide (Librium) 5 mg PO Q8 PRN PRN Reason: Agitation Stop: 11/09/16 23:13 Last Admin: 11/07/16 01:45 Dose: 5 mg Fluticasone Propionate (Flonase) 1 spr NS DAILY [facility] Folic Acid (Folic Acid) 1 mg PO DAILY [facility] Furosemide (Lasix) 20 mg PO DAILY [facility] Gabapentin (Neurontin) 300 mg PO TID [facility] Hydromorphone HCl (Dilaudid) 0.5 mg IVP Q6H PRN PRN Reason: Pain, moderate (4-7) Stop: 11/08/16 23:13 Last Admin: 11/07/16 06:00 Dose: 0.5 mg Meropenem 1 gm/ Sodium (Chloride) 100 mls @ 200 mls/hr IVPB Q8H [facility] Lactulose (Enulose) 20 gm PO HS [facility] Spironolactone (Aldactone) 50 mg PO DAILY [facility] Thiamine HCl (Vitamin B1 Tab) 100 mg PO DAILY [facility] Tramadol HCl (Ultram) 50 mg PO Q6H PRN PRN Reason: Pain, severe (8-10) Results - Vital Signs Recent Vital Signs: Last Vital Signs Temp 98.2 F 11/07/16 07:05 Pulse 119 H 11/07/16 07:05 Resp 20 11/07/16 07:05 BP 109/70 11/07/16 07:05 Pulse Ox 93 L 11/07/16 07:05 - Labs Result Diagrams: 11/06/16 20:11 11/06/16 20:11 Attending/Attestation - Attestation I have personally seen and examined this patient.: Yes I have fully participated in the care of the patient.: Yes I have reviewed all pertinent clinical information: Yes Notes (Text): 11/07/16 09:22 I have seen and examined patient with GI fellow. Agree with above documentation with the following additions. In brief, this is a 31 year old female with history of ETOH cirrhosis, HTN, asthma, who was admitted to hospital with complaint of nausea and vomiting. She has had multiple recent hospitalizations for treatment of decompensated liver disease including evaluations at [facility] and [facility] where she is undergoing transplant evaluation. While hospitalized at [facility] she was treated for pneumonia. She endorses persistent nausea which was present during hospitalization and has continued following discharge. She also reports intermittent non-bloody emesis but denies fever/chills, weight loss, rectal bleeding, or change in bowel habits. She claims to have lost nearly 30 pounds over the past few months due to change in appetite. ETOH decompensated cirrhosis Pneumonia Nausea, vomiting - Advance diet slowly as tolerated, suggest small frequent meals - Anti-emetic therapy PRN - Continue with PPI therapy - Would consider changing antibiotic regimen if symptoms persist - LFTs stable, continue to monitor - Awaiting results of abdominal US - Continue with lactulose and xifaxan regimen for prevention of HE - No planned inpatient GI intervention, patient has scheduled appointment for follow up at [place] [facility] within 2 weeks
--- NOTE | 2016-11-07 09:28 | RAD ---
HISTORY: pneumonia COMPARISON: 10/30/2016 FINDINGS: LUNGS: Lines and tubes stable position. Persistent moderate right pleural effusion with adjacent consolidative changes in the right mid to lower lung zone. Right hilar prominence. Venous congestion. PLEURA: As above. CARDIOVASCULAR: Normal. OSSEOUS STRUCTURES: No significant abnormalities. VISUALIZED UPPER ABDOMEN: Normal. OTHER FINDINGS: None. IMPRESSION: No significant interval change.
--- NOTE | 2016-11-07 10:21 | US ---
HISTORY: ruq pain, cirrhosis COMPARISON: CT abdomen and pelvis without IV contrast performed 10/15/16 TECHNIQUE: Sonographic evaluation of the right upper quadrant of the abdomen. FINDINGS: LIVER: Measures 28.1 cm in length. Echogenic liver may be seen in setting of hepatic parenchymal disease or fatty infiltration. No focal hepatic mass identified. The main portal vein appears patent with normal directional flow. No intrahepatic bile duct dilatation. GALLBLADDER: No gallstones. No gallbladder wall thickening or pericholecystic edema. Negative sonographic Yeboah sign as assessed by the rda. COMMON BILE DUCT: Measures 6 mm. No stones. No dilatation. PANCREAS: Not well-visualized. RIGHT KIDNEY: Measures 13.1 x 4.2 x 5.9 cm. No obstructing calculus or hydronephrosis identified. AORTA: Limited visualization appears grossly unremarkable. IVC: Limited visualization appears grossly unremarkable. OTHER FINDINGS: 1.7 x 1.3 cm hypoechoic avascular cystic appearing structure is evident within the left lower quadrant palpable region as indicated by the patient. Findings are suggestive of a cyst. Correlate clinically. IMPRESSION: Hepatomegaly. Echogenic liver may be seen in setting of hepatic parenchymal disease or fatty infiltration. Small perihepatic ascites. 1.7 x 1.3 cm hypoechoic avascular cystic appearing structure is evident within the left lower quadrant palpable region as indicated by the patient. Findings are suggestive of a cyst. Correlate clinically. Preliminary impression was provided by virtual radiologic.
[2016-11-07] MEDS: Fluticasone Nasal 50 mcg/Spray NS SCH (11:20)
[2016-11-07 11:34] LABS: INR 1.4
[2016-11-07 14:59] LABS: BASO # 0.1 K/uL (0.0-0.2); BASO % 0.6 % (0.0-2.0); EOS # 0.1 K/uL (0.0-0.7); EOS % 0.6 % (0.0-4.0); HEMATOCRIT 29.3 % (34.0-47.0); LYMPH # 2.7 K/uL (1.0-4.3); LYMPH % 12.5 % (20.0-40.0); MEAN CELL VOLUME 108.6 fL (81.0-99.0); MEAN CORPUSCULAR HEMOGLOBIN 33.9 pg (27.0-31.0); MEAN CORPUSCULAR HGB CONC 31.2 g/dL (33.0-37.0); MEAN PLATELET VOLUME 8.7 fL (7.2-11.7); MONO # 1.1 K/uL (0.0-0.8); MONO % 4.9 % (0.0-10.0); NRBC % 0.1 % (0.0-2.0); RED CELL DISTRIBUTION WIDTH 17.7 % (11.5-14.5)
[2016-11-07 15:19] LABS: CHLORIDE 94 mmol/L (98-107); SODIUM 133 mmol/L (132-148)
[2016-11-07 15:20] LABS: POTASSIUM 3.5 mmol/L (3.6-5.2)
[2016-11-07 15:22] LABS: ALB/GLOB RATIO 0.9 (1.0-2.1); ALKALINE PHOSPHATASE 178 U/L (38-126); ALT/SGPT 44 U/L (9-52); AST/SGOT 112 U/L (14-36); BILIRUBIN,TOTAL 5.7 mg/dL (0.2-1.3); BLOOD UREA NITROGEN 5 mg/dL (7-17); CARBON DIOXIDE 28 mmol/L (22-30); GFR AFRICAN-AMERICAN > 60; GLUCOSE,RANDOM 118 mg/dL (65-105); TOTAL PROTEIN 6.7 g/dL (6.3-8.3)
[2016-11-07 15:23] LABS: CALCIUM 8.3 mg/dl (8.6-10.4)
--- NOTE | 2016-11-07 22:24 | HP ---
CHIEF COMPLAINT: Not feeling well, cough. HISTORY OF PRESENT ILLNESS: This is a 31-year-old female with a history of alcoholic liver disease, hypertension, bronchial asthma, anxiety and seizure disorder, recently hospitalized to the intensive care unit 3 days prior to the admission with increasing cough, shortness of breath and noted to have severe pneumonia with multi-organism including , ESBL E. coli and also Klebsiella pneumoniae. T he patient was being treated with intravenous antibiotic with antibiotic, but she started havin g increasing weakness, tiredness and easy fatigability, so patient came to the Emergency Room. The p atient had a PICC line on the right upper extremity. She continued to receive the as an outpat ient. The patient was self-administering the antibiotic at home, but she was not feeling well. She started having nausea, vomiting, severe abdominal pain as well as back pain associated with weakness. She was also having some leg swelling, but is better than before. PAST MEDICAL HISTORY: Liver cirrhosis, hypertension, bronchial asthma and anxiety disorder, alcoholi sm. PAST SURGICAL HISTORY: Right ankle surgery. ALLERGIES: No known drug allergy. PERSONAL HISTORY: The patient is a nonsmoker and denies any drug abuse, but the patient claimed she is not drinking for almost a year now. FAMILY HISTORY: No family history of cancer. REVIEW OF SYSTEMS: The patient is currently not in any distress, but complaining of anxiety and agit ation. She was also complaining of pain in the lower back, mid thoracic spine, back pain and also le g pain. She denies any nausea currently, but episodes of vomiting yesterday noted. She was also com plaining of abdominal distention and pain. Anxiety and tremor present. PHYSICAL EXAMINATION: VITAL SIGNS: Temperature is 98.2, pulse 119, respirations 20, blood pressure 109/70, saturation 93%. GENERAL: Clinical examination is unremarkable except anxiety and tremor. ABDOMEN: Mild abdominal distention. EXTREMITIES: 1+ pedal edema. Right arm PICC line. CENTRAL NERVOUS SYSTEM: Alert, awake, oriented, not in any distress otherwise. WBC 19, hemoglobin 9 .3, BUN and creatinine are normal otherwise. LABORATORY DATA: Reviewed. DIAGNOSTIC DATA: Chest x-ray showing evidence of right lower lung pneumonia and possible pleural eff usion. ASSESSMENT AND RECOMMENDATIONS: A 31-year-old female with a history of liver disease, alcoholism, hy pertension, bronchial asthma and severe pneumonia associated with a parapneumonic effusion and , currently having PICC line and is receiving antibiotic. Elevated ammonia level noted. Possibly has hepatic encephalopathy, alcoholic withdrawal and also associated with tremor, pneumonemia and the pl eural effusion. The patient is currently on , diuretics. We will repeat the CAT scan if needed . Thoracentesis may be needed. GI evaluation. On medications for tremor, seizure precaution and we will follow the patient. Virginia Carty MD cc: [id number] TT: 11/07/2016 22:23:52 mn
[2016-11-08] MEDS: HYDROmorphone 0.5 mg/0.5 ml ISec IVP PRN ×4 (01:08→18:52)
--- NOTE | 2016-11-08 09:09 | HP ---
CHIEF COMPLAINT: Abdominal pain, nausea, vomiting. HISTORY OF PRESENT ILLNESS: A 31-year-old female with a history of alcoholism and liver failure, abd ominal distention, leg swelling, recently hospitalized with acute pneumonia, placed on IV antibiotic; also had a pleural effusion, status post thoracentesis; came to the Emergency Room with abdominal pa in. She was recently discharged 3 days ago and came back get him back to the Emergency Room with the worsening symptoms of diffuse abdominal pain, pain over the right upper quadrant mostly, and also as sociated with nausea and 1 episode of vomiting. The patient did not have any diarrhea. ____ leg swe lling noted. The swelling in the legs is much improving. She also has a PICC line in the right uppe r extremity through which she was getting antibiotic. The patient did have some shaking, nausea and also abdominal pain associated with nausea. PAST MEDICAL HISTORY: Anxiety, asthma, hypertension, seizure disorder, also liver disease, alcoholic liver disease. ALLERGIES: No known drug allergies. PERSONAL HISTORY: The patient used to be a heavy drinker, recently quit alcohol. Denies any smoking . No drug abuse. FAMILY HISTORY: Noncontributory. REVIEW OF SYSTEMS: Noted from the chart. Jaundice noticed, abdominal pain percent, nausea noted, sh aking present, leg swelling in the past, shortness of breath in the past. PHYSICAL EXAMINATION: VITAL SIGNS: Reviewed. Temperature is 98.3, pulse 114, blood pressure 126/82, saturation is 94% on room air. HEENT: PERRLA. NECK: Supple. CHEST: Good air entry bilateral. CARDIOVASCULAR: Regular heart sound. ABDOMEN: Distention noted. Tenderness present in the right upper quadrant. EXTREMITIES: Lower extremity edema noted, 1+. LABORATORY DATA: Noted. Sodium 133, BUN and creatinine are normal. Liver enzymes elevated. Total bilirubin is 5.5. Alkaline phosphatase, liver enzymes are slightly improved compared to the old. WB C 19, improved from old. Hematocrit is stable, platelet is otherwise nonspecific. INR is 1.4. Abdo hansel ultrasound nonspecific. ASSESSMENT AND RECOMMENDATIONS: A 31-year-old female now admitted with a history of alcoholism, anxi ety, bronchial asthma and history of detoxification, now admitted to the hospital with again worsenin g symptoms of nausea, vomiting, abdominal pain and elevated ammonia level, acute on chronic hepatic f ailure, sepsis, right-sided peripherally inserted central catheter line, acquired pneumonia, acquired infection cannot be ruled out. Will get a blood culture and urine culture. The patient will be man aged with IV antibiotic. Will closely monitor the patient. Will follow up the patient. Virginia Carty MD cc: [id number] TT: 11/07/2016 08:13:06 mn
[2016-11-08] MEDS: Fluticasone Nasal 50 mcg/Spray NS SCH (10:24)
--- NOTE | 2016-11-08 11:44 | CP.PCM.PN ---
<Mckenna Velasquez - Last Filed: 11/08/16 11:50> Subjective - Date & Time of Evaluation Date of Evaluation: 11/08/16 Time of Evaluation: 11:42 - Subjective Subjective: Gastroenterology Fellow/PGY4 Progress Note Patient notes persistent nausea. Tolerated small amounts of regular diet. Two soft bowel movements with administration of Lactulose. A 12-point review of systems negative except for as above. Objective - Vital Signs/Intake and Output Vital Signs (last 24 hours): Temp Pulse Resp BP Pulse Ox 98.7 F 19 L 20 133/71 91 L 11/08/16 07:00 11/08/16 07:00 11/08/16 07:00 11/08/16 10:57 11/08/16 07:00 Intake and Output: 11/08/16 11/08/16 06:59 18:59 Intake Total 340 Balance 340 - Medications Medications: Current Medications Albuterol (Ventolin Hfa 90 Mcg/Actuation (8 G)) 1 puff IH RQ6 PRN PRN Reason: Shortness of Breath Chlordiazepoxide (Librium) 5 mg PO Q8 [facility] Stop: 11/10/16 20:26 Last Admin: 11/08/16 06:01 Dose: 5 mg Fluticasone Propionate (Flonase) 1 spr NS DAILY [facility] Last Admin: 11/08/16 10:24 Dose: Not Given Folic Acid (Folic Acid) 1 mg PO DAILY [facility] Last Admin: 11/08/16 10:57 Dose: 1 mg Furosemide (Lasix) 20 mg PO DAILY [facility] Last Admin: 11/08/16 10:57 Dose: 20 mg Gabapentin (Neurontin) 300 mg PO TID [facility] Last Admin: 11/08/16 10:57 Dose: 300 mg Hydromorphone HCl (Dilaudid) 0.5 mg IVP Q6H PRN PRN Reason: Pain, moderate (4-7) Stop: 11/08/16 23:13 Last Admin: 11/08/16 07:09 Dose: 0.5 mg Imipenem/Cilastatin Sodium 500 (mg/ Sodium Chloride) 100 mls @ 100 mls/hr IVPB Q8 [facility] Last Admin: 11/08/16 06:01 Dose: 100 mls/hr Lactulose (Enulose) 20 gm PO HS [facility] Last Admin: 11/07/16 21:47 Dose: 20 gm Spironolactone (Aldactone) 25 mg PO DAILY [facility] Last Admin: 11/08/16 10:58 Dose: 25 mg Thiamine HCl (Vitamin B1 Tab) 100 mg PO DAILY [facility] Last Admin: 11/08/16 10:57 Dose: 100 mg - Labs Labs: 11/07/16 14:54 11/07/16 14:54 PT 16.7 SECONDS (9.7-12.2) H 11/07/16 11:21 INR 1.4 11/07/16 11:21 APTT 36 SECONDS (21-34) H 11/06/16 20:11 - Constitutional Appears: Non-toxic, No Acute Distress - Head Exam Head Exam: ATRAUMATIC, NORMOCEPHALIC - Eye Exam Eye Exam: EOMI, PERRL Pupil Exam: PERRL. absent: Miosis, Mydriatic - ENT Exam ENT Exam: Mucous Membranes Moist, Normal Oropharynx - Neck Exam Neck Exam: Full ROM, Normal Inspection - Respiratory Exam Respiratory Exam: Clear to Ausculation Bilateral. absent: Rales, Rhonchi, Wheezes - Cardiovascular Exam Cardiovascular Exam: RRR, +S1, +S2. absent: Gallop, Rubs - GI/Abdominal Exam GI & Abdominal Exam: Distended, Soft, Tenderness, Normal Bowel Sounds, Organomegaly. absent: Firm, Guarding, Rigid, Rebound Additional comments: diffuse discomfort to palpation - Extremities Exam Extremities Exam: Full ROM. absent: Pedal Edema - Neurological Exam Neurological Exam: Alert, Awake - Psychiatric Exam Psychiatric exam: Normal Affect, Normal Mood - Skin Skin Exam: Dry, Intact, Normal Color, Warm Assessment and Plan - Assessment and Plan (Free Text) Assessment: 31 year old female with history of Alcoholic cirrhosis, Hypertension, Asthma, and Anxiety presenting with nausea and vomiting. Of note, multiple recent hospitalizations due to decompensated cirrhosis 2/2 hepatic encephalopathy, alcoholic hepatitis, and acute liver failure transferred to [facility] and endorsed re-admission within 24 hours on 10/13 to [facility] and discharge 11/03 for sepsis 2/2 ESBL HCAP, discharged on 3 weeks of Meropenem (last scheduled dose 04/17) No EGD or colonoscopy. Plan: >DDx: medication side effect, active infection (HCAP), Dyspepsia >ID managing: changed to Imipenem >ordered Zofran PRN >continue low salt diet >supportive care: antiemetics, PPI >ordered CBC, CMP, INR >on admission :MELD 20, DF 35.9, today pending >liver function tests continue to improve >continue Lactulose, titrate to 2-3 bowel movements per day >continue Lasix 20mg, spironolactone 50mg >strict I&Os >Ultrasound -small perihepatic ascites >endorsed sobriety, alcohol cessation counselled provided >established care at [facility] - appointment in 2 weeks for transplant evaluation <Stella Lee - Last Filed: 11/08/16 15:14> Objective - Vital Signs/Intake and Output Vital Signs (last 24 hours): Temp Pulse Resp BP Pulse Ox 98.7 F 19 L 20 133/71 91 L 11/08/16 07:00 11/08/16 07:00 11/08/16 07:00 11/08/16 10:57 11/08/16 07:00 Intake and Output: 11/08/16 11/08/16 06:59 18:59 Intake Total 340 340 Balance 340 340 - Medications Medications: Current Medications Albuterol (Ventolin Hfa 90 Mcg/Actuation (8 G)) 1 puff IH RQ6 PRN PRN Reason: Shortness of Breath Chlordiazepoxide (Librium) 5 mg PO Q8 [facility] Stop: 11/10/16 20:26 Last Admin: 11/08/16 13:08 Dose: 5 mg Fluticasone Propionate (Flonase) 1 spr NS DAILY [facility] Last Admin: 11/08/16 10:24 Dose: Not Given Folic Acid (Folic Acid) 1 mg PO DAILY [facility] Last Admin: 11/08/16 10:57 Dose: 1 mg Furosemide (Lasix) 20 mg PO DAILY [facility] Last Admin: 11/08/16 10:57 Dose: 20 mg Gabapentin (Neurontin) 300 mg PO TID [facility] Last Admin: 11/08/16 13:08 Dose: 300 mg Hydromorphone HCl (Dilaudid) 0.5 mg IVP Q6H PRN PRN Reason: Pain, moderate (4-7) Stop: 11/08/16 23:13 Last Admin: 11/08/16 13:08 Dose: 0.5 mg Imipenem/Cilastatin Sodium 500 (mg/ Sodium Chloride) 100 mls @ 100 mls/hr IVPB Q8 [facility] Last Admin: 11/08/16 13:08 Dose: 100 mls/hr Lactulose (Enulose) 20 gm PO HS [facility] Last Admin: 11/07/16 21:47 Dose: 20 gm Ondansetron HCl (Zofran Inj) 4 mg IVP Q6 PRN PRN Reason: Nausea/Vomiting Spironolactone (Aldactone) 25 mg PO DAILY [facility] Last Admin: 11/08/16 10:58 Dose: 25 mg Thiamine HCl (Vitamin B1 Tab) 100 mg PO DAILY [facility] Last Admin: 11/08/16 10:57 Dose: 100 mg - Labs Labs: 11/08/16 11:35 11/08/16 11:35 PT 16.9 SECONDS (9.7-12.2) H 11/08/16 11:35 INR 1.5 11/08/16 11:35 APTT 36 SECONDS (21-34) H 11/06/16 20:11 Attending/Attestation - Attestation I have personally seen and examined this patient.: Yes I have fully participated in the care of the patient.: Yes I have reviewed all pertinent clinical information, including history, physical exam and plan: Yes Notes (Text): Patient seen and examined with GI fellow. Agree with her note as documented above with the following additions/exceptions. This is a 31 year old female with history of HTN, asthma, ETOH cirrhosis/ETOH hepatitis who is admitted with nausea and vomiting. She is tolerating diet. She complains of abdominal discomfort; she is having BM with lactulose. No rectal bleeding. Her LFTs are overall improving. She continues on treatment for ESBL HCAP. Abdominal sonogram with minimal ascites. Would continue supportive care, monitor LFTs, continue lactulose therapy (titrate to 2-3BM/day). Continue aldactone/lasix. Low sodium diet as tolerated. Upon discharge, the patient wishes to follow up at [facility] hepatology where she is planning to undergo living donor related transplant evaluation. 11/08/16 15:13
[2016-11-08 11:58] LABS: CHLORIDE 96 mmol/L (98-107); POTASSIUM 3.9 mmol/L (3.6-5.2); SODIUM 134 mmol/L (132-148)
[2016-11-08 12:00] LABS: AST/SGOT 95 U/L (14-36); CARBON DIOXIDE 28 mmol/L (22-30); GFR AFRICAN-AMERICAN > 60
[2016-11-08 12:01] LABS: ALB/GLOB RATIO 0.8 (1.0-2.1); ALKALINE PHOSPHATASE 187 U/L (38-126); ALT/SGPT 40 U/L (9-52); BLOOD UREA NITROGEN 4 mg/dL (7-17); CALCIUM 8.1 mg/dl (8.6-10.4); GLUCOSE,RANDOM 109 mg/dL (65-105); TOTAL PROTEIN 6.5 g/dL (6.3-8.3)
[2016-11-08 12:15] LABS: INR 1.5
[2016-11-08 12:29] LABS: BASO # 0.2 K/uL (0.0-0.2); BASO % 0.9 % (0.0-2.0); EOS # 0.1 K/uL (0.0-0.7); EOS % 0.4 % (0.0-4.0); HEMATOCRIT 28.1 % (34.0-47.0); LYMPH # 3.2 K/uL (1.0-4.3); LYMPH % 13.1 % (20.0-40.0); MEAN CORPUSCULAR HEMOGLOBIN 34.6 pg (27.0-31.0); MEAN CORPUSCULAR HGB CONC 31.7 g/dL (33.0-37.0); MEAN PLATELET VOLUME 8.8 fL (7.2-11.7); MONO # 1.1 K/uL (0.0-0.8); MONO % 4.6 % (0.0-10.0); NRBC % 0.1 % (0.0-2.0); RED CELL DISTRIBUTION WIDTH 17.7 % (11.5-14.5); WHITE BLOOD COUNT 24.4 K/uL (4.8-10.8)
[2016-11-08] MEDS: Albuterol-Ipratrop 3 mg / 0.5 (3 ml) UD INH PRN (21:45)
[2016-11-09] MEDS: HYDROmorphone 0.5 mg/0.5 ml ISec IVP PRN ×4 (02:14→21:29)
[2016-11-09] MEDS: Fluticasone Nasal 50 mcg/Spray NS SCH (10:43)
--- NOTE | 2016-11-09 11:28 | CT ---
CT chest without IV contrast Indication: pneumonia and parapneumonic effusion Technique: Contiguous axial images were obtained through the chest without intravenous contrast enhancement. Sagittal and coronal reconstructions were generated and reviewed. This CT exam was performed using 1 or more of the falling dose reduction techniques: Automated exposure control, adjustment of the MAA and/or kV according to patient size, and/or use of iterative reconstruction technique. Radiation dose (DLP): 850.31 MGy-cm. Comparison: CTA chest performed 10/31/16 Findings: Right-sided PICC extends to the SVC. Visualized portions of the inferior thyroid gland appear unremarkable. The unenhanced mediastinal and hilar vascular structures appear grossly unremarkable. The heart appears within normal limits of size. Sub cm nonspecific prevascular and mediastinal lymph nodes. Moderate right-sided pleural effusion and associated compressive consolidation. No pneumothorax. Limited visualization of the noncontrast upper abdomen appears grossly unremarkable. No acute osseous abnormality is detected. Impression: Moderate right-sided pleural effusion and compressive consolidation. Right-sided PICC.
--- NOTE | 2016-11-09 19:22 | CP.PCM.PN ---
Subjective - Date & Time of Evaluation Date of Evaluation: 11/08/16 Time of Evaluation: 18:00 - Subjective Subjective: Patient last night he slept well. Less shaking noted. Still mildly tachycardic. Denies any nausea. Poor intake noted. Abdomen the swelling less. Objective - Vital Signs/Intake and Output Vital Signs (last 24 hours): Temp Pulse Resp BP Pulse Ox 98.1 F 118 H 18 124/74 97 11/09/16 15:15 11/09/16 15:15 11/09/16 15:15 11/09/16 15:15 11/09/16 15:15 Intake and Output: 11/09/16 11/10/16 18:59 06:59 Intake Total 650 Balance 650 chest good air entry bilater wheezing noted, regular heart sound normal Abdomen minimal distentiEdema 1+.ORTHOPEDIC CAST SPECIALIST alert awake oriented, fine tremor noted - Medications Medications: Current Medications Albuterol (Ventolin Hfa 90 Mcg/Actuation (8 G)) 1 puff IH RQ6 PRN PRN Reason: Shortness of Breath Albuterol/Ipratropium (Duoneb 3 Mg/0.5 Mg (3 Ml) Ud) 3 ml INH RQ6 PRN PRN Reason: Wheezing Last Admin: 11/08/16 21:45 Dose: 3 ml Chlordiazepoxide (Librium) 5 mg PO Q12 [facility] Stop: 11/10/16 20:26 Last Admin: 11/09/16 10:57 Dose: 5 mg Fluticasone Propionate (Flonase) 1 spr NS DAILY [facility] Last Admin: 11/09/16 10:43 Dose: Not Given Folic Acid (Folic Acid) 1 mg PO DAILY [facility] Last Admin: 11/09/16 10:43 Dose: 1 mg Furosemide (Lasix) 20 mg PO DAILY [facility] Last Admin: 11/09/16 10:43 Dose: 20 mg Gabapentin (Neurontin) 300 mg PO TID [facility] Last Admin: 11/09/16 17:46 Dose: 300 mg Hydromorphone HCl (Dilaudid) 0.5 mg IVP Q6H PRN PRN Reason: pain Last Admin: 11/09/16 15:45 Dose: 0.5 mg Imipenem/Cilastatin Sodium 500 (mg/ Sodium Chloride) 100 mls @ 100 mls/hr IVPB Q8 [facility] Last Admin: 11/09/16 13:49 Dose: 100 mls/hr Lactulose (Enulose) 20 gm PO HS [facility] Last Admin: 11/08/16 21:25 Dose: 20 gm Ondansetron HCl (Zofran Inj) 4 mg IVP Q6 PRN PRN Reason: Nausea/Vomiting Last Admin: 11/09/16 06:00 Dose: 4 mg Spironolactone (Aldactone) 25 mg PO DAILY [facility] Last Admin: 11/09/16 10:42 Dose: 25 mg Thiamine HCl (Vitamin B1 Tab) 100 mg PO DAILY [facility] Last Admin: 11/09/16 10:41 Dose: 100 mg - Labs Labs: 11/08/16 11:35 11/08/16 11:35 PT 16.9 SECONDS (9.7-12.2) H 11/08/16 11:35 INR 1.5 11/08/16 11:35 APTT 36 SECONDS (21-34) H 11/06/16 20:11 Assessment and Plan (1) Liver failure Assessment & Plan: patient with liver disease, complicated with a pneumonia, associated with the pleural Currently on antibiotic. Hepatic encephalopathy We'll continue the current tWe'll get the CT scan Status: Chronic (2) CHF (congestive heart failure) Status: Acute (3) Coagulopathy Status: Acute (4) Hepatic encephalopathy Status: Acute
--- NOTE | 2016-11-09 19:23 | CP.PCM.PN ---
Subjective - Date & Time of Evaluation Date of Evaluation: 11/09/16 Time of Evaluation: 19:22 - Subjective Subjective: Patient did not feel well last night, she did not sleep well. But less tremor noted. Asthma is better controlled. Denies any nausea. Vomiting minimally noted, but her appetite and the intake is less Objective - Vital Signs/Intake and Output Vital Signs (last 24 hours): Temp Pulse Resp BP Pulse Ox 98.1 F 118 H 18 124/74 97 11/09/16 15:15 11/09/16 15:15 11/09/16 15:15 11/09/16 15:15 11/09/16 15:15 Intake and Output: 11/09/16 11/10/16 18:59 06:59 Intake Total 650 Chest good air entry bilaterally. On the right lower lung reduced air entry, and rales noted Regular heart sound. Nontender abdomen. Tachycardia noted. ASSISTANT FINANCE DIRECTOR alert awake oriented 3 no functional neurological deficitBalance 650 - Medications Medications: Current Medications Albuterol (Ventolin Hfa 90 Mcg/Actuation (8 G)) 1 puff IH RQ6 PRN PRN Reason: Shortness of Breath Albuterol/Ipratropium (Duoneb 3 Mg/0.5 Mg (3 Ml) Ud) 3 ml INH RQ6 PRN PRN Reason: Wheezing Last Admin: 11/08/16 21:45 Dose: 3 ml Chlordiazepoxide (Librium) 5 mg PO Q12 [facility] Stop: 11/10/16 20:26 Last Admin: 11/09/16 10:57 Dose: 5 mg Fluticasone Propionate (Flonase) 1 spr NS DAILY [facility] Last Admin: 11/09/16 10:43 Dose: Not Given Folic Acid (Folic Acid) 1 mg PO DAILY [facility] Last Admin: 11/09/16 10:43 Dose: 1 mg Furosemide (Lasix) 20 mg PO DAILY [facility] Last Admin: 11/09/16 10:43 Dose: 20 mg Gabapentin (Neurontin) 300 mg PO TID [facility] Last Admin: 11/09/16 17:46 Dose: 300 mg Hydromorphone HCl (Dilaudid) 0.5 mg IVP Q6H PRN PRN Reason: pain Last Admin: 11/09/16 15:45 Dose: 0.5 mg Imipenem/Cilastatin Sodium 500 (mg/ Sodium Chloride) 100 mls @ 100 mls/hr IVPB Q8 [facility] Last Admin: 11/09/16 13:49 Dose: 100 mls/hr Lactulose (Enulose) 20 gm PO HS [facility] Last Admin: 11/08/16 21:25 Dose: 20 gm Ondansetron HCl (Zofran Inj) 4 mg IVP Q6 PRN PRN Reason: Nausea/Vomiting Last Admin: 11/09/16 06:00 Dose: 4 mg Spironolactone (Aldactone) 25 mg PO DAILY [facility] Last Admin: 11/09/16 10:42 Dose: 25 mg Thiamine HCl (Vitamin B1 Tab) 100 mg PO DAILY [facility] Last Admin: 11/09/16 10:41 Dose: 100 mg - Labs Labs: 11/08/16 11:35 11/08/16 11:35 PT 16.9 SECONDS (9.7-12.2) H 11/08/16 11:35 INR 1.5 11/08/16 11:35 APTT 36 SECONDS (21-34) H 11/06/16 20:11 Assessment and Plan (1) Liver failure Assessment & Plan: Patient with liver disease. Associated with hepatic encephalopathy. CT scan of the chest are reviewed in Large moderate pleural effusion on the right lung. We will do the thoracentesis possibly by interventional radiologist. Fluid will be analyzed. On antibiotic at this time. Underlying C. difficile colitis cannot be ruled out. We'll get the stool for C. difficile. And will follow the patient Status: Chronic (2) CHF (congestive heart failure) Status: Acute (3) Coagulopathy Status: Acute (4) Hepatic encephalopathy Status: Acute
[2016-11-10] MEDS: HYDROmorphone 0.5 mg/0.5 ml ISec IVP PRN ×4 (03:37→21:53)
[2016-11-10] MEDS: Fluticasone Nasal 50 mcg/Spray NS SCH (11:11)
[2016-11-10 11:46] LABS: BODY FLUID TYPE PLEURAL
[2016-11-10 12:23] LABS: BF GROSS APPEARANCE SL CLOUDY (CLEAR)
--- NOTE | 2016-11-10 13:15 | US ---
PROCEDURE: Date of procedure: 11/10/2016 Procedure: 1. Ultrasound-guided Right thoracentesis, CPT 81243 Medications: 6 cc 1% Lidocaine HISTORY: Right pleural effusion, shortness of breath TECHNIQUE: Following informed consent ,the Patients' right chest was marked. Procedure time-out was called, and the patient was placed in the sitting position and limited ultrasound showed a small right effusion. The patient's right back was prepped and draped in the usual sterile fashion. After the skin was anesthetized with lidocaine, a drainage catheter was advanced under ultrasound guidance into the pleural space. Ultrasound-guided thoracentesis was performed. A total of 500 cubic centimeters of yellow colored fluid removed without complication. A Xeroform dressing was applied. IMPRESSION: Ultrasound guided Right thoracentesis. There were no immediate complications.
--- NOTE | 2016-11-10 21:29 | CP.PCM.PN ---
Subjective - Date & Time of Evaluation Date of Evaluation: 11/10/16 Time of Evaluation: 21:28 - Subjective Subjective: Patient still having episodes of nausea, vomiting occasionally noted. Abdominal pain present. Denies any chest pain. Palpitation noted, shaking also present. Objective - Vital Signs/Intake and Output Vital Signs (last 24 hours): Temp Pulse Resp BP Pulse Ox 98.2 F 110 H 20 119/78 95 11/10/16 16:00 11/10/16 16:00 11/10/16 16:00 11/10/16 16:00 11/10/16 16:00 - Medications Medications: Current Medications Albuterol (Ventolin Hfa 90 Mcg/Actuation (8 G)) 1 puff IH RQ6 PRN PRN Reason: Shortness of Breath Albuterol/Ipratropium (Duoneb 3 Mg/0.5 Mg (3 Ml) Ud) 3 ml INH RQ6 PRN PRN Reason: Wheezing Last Admin: 11/08/16 21:45 Dose: 3 ml Fluticasone Propionate (Flonase) 1 spr NS DAILY [facility] Last Admin: 11/10/16 11:11 Dose: Not Given Folic Acid (Folic Acid) 1 mg PO DAILY [facility] Last Admin: 11/10/16 11:10 Dose: 1 mg Furosemide (Lasix) 20 mg PO DAILY [facility] Last Admin: 11/10/16 11:10 Dose: 20 mg Gabapentin (Neurontin) 300 mg PO TID [facility] Last Admin: 11/10/16 17:38 Dose: 300 mg Hydromorphone HCl (Dilaudid) 0.5 mg IVP Q6H PRN PRN Reason: pain Last Admin: 11/10/16 16:27 Dose: 0.5 mg Imipenem/Cilastatin Sodium 500 (mg/ Sodium Chloride) 100 mls @ 100 mls/hr IVPB Q8 [facility] Last Admin: 11/10/16 14:52 Dose: 100 mls/hr Lactulose (Enulose) 20 gm PO HS [facility] Last Admin: 11/09/16 21:07 Dose: 20 gm Ondansetron HCl (Zofran Inj) 4 mg IVP Q6 PRN PRN Reason: Nausea/Vomiting Last Admin: 11/10/16 06:12 Dose: 4 mg Spironolactone (Aldactone) 25 mg PO DAILY [facility] Last Admin: 11/10/16 11:10 Dose: 25 mg Thiamine HCl (Vitamin B1 Tab) 100 mg PO DAILY [facility] Last Admin: 11/10/16 11:10 Dose: 100 mg Vital signs reviewed No neck vein distention noted Chest good air entry bilaterally, no wheezing or rales noted CVS regular heart sound, no murmur noted Abdomen soft, nontender. Extremities no pedal edema [employer] alert awake oriented 3, no functional neurological deficit - Labs Labs: 11/08/16 11:35 11/08/16 11:35 PT 16.9 SECONDS (9.7-12.2) H 11/08/16 11:35 INR 1.5 11/08/16 11:35 APTT 36 SECONDS (21-34) H 11/06/16 20:11 Assessment and Plan (1) Liver failure Assessment & Plan: Patient with a chronic liver failure, Liver cirrhosis, alcoholic hepatitis. Currently patient is still on sepsis. A receiving antibiotic Status: Chronic (2) CHF (congestive heart failure) Status: Acute (3) Coagulopathy Status: Acute (4) Hepatic encephalopathy Status: Acute
[2016-11-11] MEDS: HYDROmorphone 0.5 mg/0.5 ml ISec IVP PRN ×3 (04:01→16:21)
[2016-11-11 07:40] LABS: BASO # 0.2 K/uL (0.0-0.2); BASO % 0.9 % (0.0-2.0); EOS # 0.1 K/uL (0.0-0.7); EOS % 0.2 % (0.0-4.0); HEMATOCRIT 27.4 % (34.0-47.0); LYMPH # 3.1 K/uL (1.0-4.3); LYMPH % 11.5 % (20.0-40.0); MEAN CELL VOLUME 106.1 fL (81.0-99.0); MEAN PLATELET VOLUME 8.8 fL (7.2-11.7); MONO # 1.1 K/uL (0.0-0.8); NRBC % 0.1 % (0.0-2.0); WHITE BLOOD COUNT 26.7 K/uL (4.8-10.8)
[2016-11-11 08:04] LABS: CHLORIDE 94 mmol/L (98-107); POTASSIUM 3.8 mmol/L (3.6-5.2); SODIUM 134 mmol/L (132-148)
[2016-11-11 08:06] LABS: BILIRUBIN,TOTAL 4.4 mg/dL (0.2-1.3); CARBON DIOXIDE 32 mmol/L (22-30); GFR AFRICAN-AMERICAN > 60
[2016-11-11 08:07] LABS: ALB/GLOB RATIO 0.8 (1.0-2.1); ALKALINE PHOSPHATASE 172 U/L (38-126); ALT/SGPT 34 U/L (9-52); AST/SGOT 99 U/L (14-36); BLOOD UREA NITROGEN 6 mg/dL (7-17); GLUCOSE,RANDOM 81 mg/dL (65-105); TOTAL PROTEIN 6.4 g/dL (6.3-8.3)
--- NOTE | 2016-11-11 09:14 | RAD ---
HISTORY: post thoracentesis COMPARISON: Comparison is made to the previous study dated 11/07/2016 FINDINGS: LUNGS: Small opacity at the right lower lung may represent atelectasis. PLEURA: Right pleural effusion is again noted. CARDIOVASCULAR: The cardiac silhouette is enlarged P OSSEOUS STRUCTURES: No significant abnormalities. VISUALIZED UPPER ABDOMEN: Normal. OTHER FINDINGS: Right sided PICC line is seen in place. IMPRESSION: Right pleural effusion likely associated with right lower lobe partial atelectasis.
[2016-11-11] MEDS: Fluticasone Nasal 50 mcg/Spray NS SCH (10:34)
[2016-11-11] MEDS ORDERED: HYDROmorphone 0.5 mg/0.5 ml ISec IVP PRN (17:59)
[2016-11-11] MEDS ORDERED: HYDROmorphone 0.5 mg/0.5 ml ISec IVP ONE (22:00)
[2016-11-12] MEDS: Fluticasone Nasal 50 mcg/Spray NS SCH (10:07)
[2016-11-12 11:10] LABS: BASO # 0.3 K/uL (0.0-0.2); BASO % 0.9 % (0.0-2.0); EOS # 0.1 K/uL (0.0-0.7); EOS % 0.3 % (0.0-4.0); HEMATOCRIT 29.9 % (34.0-47.0); LYMPH # 3.1 K/uL (1.0-4.3); LYMPH % 10.2 % (20.0-40.0); MEAN CORPUSCULAR HEMOGLOBIN 33.6 pg (27.0-31.0); MEAN CORPUSCULAR HGB CONC 31.1 g/dL (33.0-37.0); MEAN PLATELET VOLUME 9.6 fL (7.2-11.7); MONO % 3.2 % (0.0-10.0); NRBC % 0.1 % (0.0-2.0); RED CELL DISTRIBUTION WIDTH 17.5 % (11.5-14.5); WHITE BLOOD COUNT 29.9 K/uL (4.8-10.8)
[2016-11-12 11:23] LABS: CHLORIDE 91 mmol/L (98-107); SODIUM 134 mmol/L (132-148)
[2016-11-12 11:26] LABS: ALB/GLOB RATIO 0.8 (1.0-2.1); ALKALINE PHOSPHATASE 187 U/L (38-126); ALT/SGPT 31 U/L (9-52); AST/SGOT 102 U/L (14-36); BLOOD UREA NITROGEN 7 mg/dL (7-17); CALCIUM 8.5 mg/dl (8.6-10.4); CARBON DIOXIDE 30 mmol/L (22-30); GFR AFRICAN-AMERICAN > 60; GLUCOSE,RANDOM 66 mg/dL (65-105); TOTAL PROTEIN 6.9 g/dL (6.3-8.3)
[2016-11-12] MEDS: metroNIDAZOLE IV 250mg/50 ml 250 MG/50 ML BAG IVPB SCH ×2 (14:29→21:18)
[2016-11-12] MEDS: HYDROmorphone 0.5 mg/0.5 ml ISec IVP PRN ×3 (14:30→23:48)
[2016-11-12] MEDS ORDERED: Iohexol 240 (50 ml) PO ONE (20:30)
--- NOTE | 2016-11-13 00:28 | CT ---
EXAM: CT Abdomen and Pelvis With Intravenous Contrast CLINICAL HISTORY: 31 years old, female; Signs and symptoms; Other: Pancreatitits; Additional info: Sepsis, pancreatitis TECHNIQUE: Axial computed tomography images of the abdomen and pelvis with intravenous contrast. This CT exam was performed using one or more of the following dose reduction techniques: automated exposure control, adjustment of the mA and/or kV according to patient size, and/or use of iterative reconstruction technique. Coronal and sagittal reformatted images were created and reviewed. CONTRAST: 10 mL of [id number] administered intravenously. COMPARISON: US - ABDOMEN LIMITED 11/06/2016 10:30:13 PM FINDINGS: Lower thorax: RIGHT basilar atelectasis. Trace RIGHT pleural effusion. Elevated RIGHT hemidiaphragm. ABDOMEN: Liver: Enlarged, 25 cm longitudinal dimension. Fatty infiltration. Gallbladder and bile ducts: No calcified stones. No ductal dilation. Pancreas: No definite peripancreatic stranding. No discrete peripancreatic collection. Spleen: Enlarged, 19 cm longitudinal dimension. Adrenals: No mass. Kidneys and ureters: No renal calculi. No hydronephrosis. Stomach and bowel: No definite mural thickening. No obstruction. Appendix: Normal caliber. No inflammation. PELVIS: Bladder: Unremarkable. Reproductive: Unremarkable as visualized. ABDOMEN and PELVIS: Intraperitoneal space: No significant fluid collection. No free air. Bones/joints: Mild chronic compression deformities T9, T10 vertebral bodies. No acute fracture. Soft tissues: Small soft tissue nodule within LEFT anterior abdominal wall, nonspecific but possibly lymph node. Vasculature: Unremarkable. No abdominal aortic aneurysm. Lymph nodes: No pathologically enlarged lymph nodes. IMPRESSION: 1. No definite CT evidence of pancreatitis or complications related to pancreatitis. 2. Hepatosplenomegaly. 3. Incidental/non-acute findings are described above.
[2016-11-13 01:21] LABS: RBC URINE < 1 /hpf (0-3); URINE BACTERIA RARE (<OCC); URINE BILIRUBIN NEGATIVE (NEGATIVE); URINE BLOOD NEGATIVE (NEGATIVE); URINE COLOR Amber (YELLOW); URINE GLUCOSE (UA) NORMAL (Normal); URINE KETONE NEGATIVE (NEGATIVE); URINE LEUKOCYTE ESTERASE NEG Leu/uL (Negative); URINE PROTEIN 1+ mg/dL (NEGATIVE); URINE UROBILINOGEN NORMAL mg/dL (0.2-1.0); WBC URINE 3 /hpf (0-5)
[2016-11-13] MEDS: HYDROmorphone 0.5 mg/0.5 ml ISec IVP PRN ×5 (04:08→22:12)
[2016-11-13] MEDS: metroNIDAZOLE IV 250mg/50 ml 250 MG/50 ML BAG IVPB SCH ×3 (05:35→21:25)
[2016-11-13] MEDS: Fluticasone Nasal 50 mcg/Spray NS SCH (09:57)
[2016-11-13 10:43] LABS: BASO # 0.2 K/uL (0.0-0.2); BASO % 0.6 % (0.0-2.0); EOS # 0.1 K/uL (0.0-0.7); EOS % 0.4 % (0.0-4.0); LYMPH # 2.6 K/uL (1.0-4.3); LYMPH % 9.3 % (20.0-40.0); MEAN CELL VOLUME 106.5 fL (81.0-99.0); MEAN CORPUSCULAR HEMOGLOBIN 33.4 pg (27.0-31.0); MEAN CORPUSCULAR HGB CONC 31.3 g/dL (33.0-37.0); MEAN PLATELET VOLUME 9.5 fL (7.2-11.7); MONO % 3.6 % (0.0-10.0); NRBC % 0.1 % (0.0-2.0); PLATELET COUNT 431 K/uL (130-400); RED CELL DISTRIBUTION WIDTH 16.7 % (11.5-14.5); WHITE BLOOD COUNT 28.1 K/uL (4.8-10.8)
[2016-11-13 11:02] LABS: CHLORIDE 94 mmol/L (98-107)
[2016-11-13 11:03] LABS: POTASSIUM 3.9 mmol/L (3.6-5.2); SODIUM 134 mmol/L (132-148)
[2016-11-13 11:05] LABS: ALB/GLOB RATIO 0.8 (1.0-2.1); BILIRUBIN,TOTAL 3.8 mg/dL (0.2-1.3); CARBON DIOXIDE 27 mmol/L (22-30); GFR AFRICAN-AMERICAN > 60; TOTAL PROTEIN 6.8 g/dL (6.3-8.3)
[2016-11-13 11:06] LABS: ALKALINE PHOSPHATASE 190 U/L (38-126); ALT/SGPT 32 U/L (9-52); AST/SGOT 96 U/L (14-36); BLOOD UREA NITROGEN 6 mg/dL (7-17); CALCIUM 8.3 mg/dl (8.6-10.4); GLUCOSE,RANDOM 82 mg/dL (65-105)
[2016-11-13 11:57] LABS: NEUTROPHIL 87 % (50-75); TOTAL CELLS COUNTED 100
--- NOTE | 2016-11-13 12:40 | CP.PCM.CON ---
History of Present Illness - History of Present Illness History of Present Illness: 31 year old female with history of Alcoholic cirrhosis, Hypertension, Asthma, and Anxiety presenting with nausea and vomiting. S/P recent hospitalizations due to decompensated cirrhosis with hepatic encephalopathy, alcoholic hepatitis, and acute liver failure transferred to [facility] and endorsed re-admission within 24 hours on 10/13 to [facility] and discharge 11/03 for sepsis 2/2 ESBL HCAP. Patient to complete 3 weeks of Meropenem, last dose on 11/08/16 via PICC line. She notes during all of her admission since August 2016 she has had abdominal, nausea, and intermittent vomiting. Family- denies colon cancer Social-denies tobacco or illicit drug, endorses sobriety for one year Surgery-right ankle surgery Review of Systems - Constitutional Constitutional: As Per HPI, Chills, Malaise - EENT Eyes: absent: As Per HPI, Blind Spots, Blurred Vision, Change in Vision, Decreased Night Vision, Diplopia, Discharge, Dry Eye, Exophthalmos, Floaters, Irritation, Itchy Eyes, Loss of Peripheral Vision, Pain, Photophobia, Requires Corrective Lenses, Sees Flashes, Spots in Vision, Tunnel Vision, Other Visual Disturbances, Loss of Vision, Other Ears: absent: As Per HPI, Decreased Hearing, Ear Discharge, Ear Pain, Tinnitus, Abnormal Hearing, Disequilibrium, Dizziness, Other Nose/Mouth/Throat: absent: As Per HPI, Epistaxis, Nasal Congestion, Nasal Discharge, Nasal Obstruction, Nasal Trauma, Nose Pain, Post Nasal Drip, Sinus Pain, Sinus Pressure, Bleeding Gums, Change in Voice, Dental Pain, Dry Mouth, Dysphagia, Halitosis, Hoarsness, Lip Swelling, Mouth Lesions, Mouth Pain, Odynophagia, Sore Throat, Throat Swelling, Tongue Swelling, Facial Pain, Neck Pain, Neck Mass, Other - Cardiovascular Cardiovascular: absent: As Per HPI, Acrocyanosis, Chest Pain, Chest Pain at Rest , Chest Pain with Activity, Claudication, Diaphoresis, Dyspnea, Dyspnea on Exertion, Edema, Irregular Heart Rhythm, Pain Radiating to Arm/Neck/Jaw, Leg Edema, Leg Ulcers, Lightheadedness, Orthopnea, Palpitations, Paroxysmal Nocturnal Dyspnea, Pedal Edema, Radiating Pain, Rapid Heart Rate, Slow Heart Rate, Syncope, Other - Respiratory Respiratory: As Per HPI, Cough - Gastrointestinal Gastrointestinal: As Per HPI - Genitourinary Genitourinary: absent: As Per HPI, Change in Urinary Stream, Difficulty Urinating, Dysuria, Flank Pain, Hematuria, Pyuria, Nocturia, Urinary Incontinence, Urinary Frequency, Urinary Hesitance, Urinary Urgency, Voiding Freq/Small Amts, Freq UTI, Hx Renal/Bladder Calculi, Hx /Renal Surgery, Bladder Distension, Other - Reproductive: Female Reproductive:Female: absent: As Per HPI, Amenorrhea, Amenorrhea/ Control, Currently Menstual, Cycle <21 Days, Cycle >35 Days, Cycle Variable, Menses 1-7 Days, Menses >/= 8 Days, Menses Variable, Cycle > 4 Weeks Between, No Menses for 6 Months, Heavy Menses, Light Menses, Normal Menses, Spotting Between Cycles , S/P Hysterectomy, Menopausal, Post Menopausal, Premenarche, Abnormal Vaginal Bleeding, Dysmenorrhea, Dyspareunia, Genital Lesions, Genital Pruritis, Pelvic Pain, Prolapse Symptoms, Sexual Dysfunction, Vaginal Discharge, Vaginal Dryness , Vaginal Odor, Vaginal Pruritis, Other - Menstruation Menstruation: absent: As Per HPI, Amenorrhea, Amenorrhea/ Control, Currently Menstual, Cycle <21 Days, Cycle >35 Days, Cycle Variable, Menses 1-7 Days, Menses >/= 8 Days, Menses Variable, Cycle > 4 Weeks Between, No Menses for 6 Months, Heavy Menses, Light Menses, Normal Menses, Spotting Between Cycles , S/P Hysterectomy, Menopausal, Post Menopausal, Premenarche, Abnormal Vaginal Bleeding, Dysmenorrhea, Other - Musculoskeletal Musculoskeletal: absent: As Per HPI, Abnormal Gait, Arthralgias, Atrophy, Back Pain, Deformity, Joint Swelling, Limited Range of Motion, Loss of Height, Muscle Cramps, Muscle Weakness, Myalgias, Neck Pain, Numbness, Radiating Pain into Limb, Stiffness, Tingling, Other - Integumentary Integumentary: absent: As Per HPI, Acne, Alopecia, Bleeding Lesions, Change in Hair, Change in Nails, Change in Pigmentation, Changing Lesions, Dry Skin, Erythema, Furuncle, Hirsutism, Lesions, New Lesions, Non-Healing Lesions, Photosensitivity, Pruritus, Rash, Skin Pain, Skin Ulcer, Sores, Striae, Swelling , Unusual Bruising, Wounds, Jaundice, Other - Neurological Neurological: absent: As Per HPI, Abnormal Gait, Abnormal Hearing, Abnormal Movements, Abnormal Speech, Behavioral Changes, Burning Sensations, Confusion, Convulsions, Disequilibrium, Dizziness, Numbness, Focal Weakness, Frequent Falls , Headaches, Lack of Coordination, Loss of Vision, Memory Loss, Paresthesias, Radicular Pain, Restless Legs, Sensory Deficit, Syncope, Tingling, Tremor, Vertigo, Weakness, Other Visual Disturbances, Other - Psychiatric Psychiatric: absent: As Per HPI, Abnormal Sleep Pattern, Anhedonia, Anxiety, Auditory Hallucinations, Behavioral Changes, Change in Appetite, Change in Libido, Confusion, Depression, Difficulty Concentrating, Hallucinations, Homicidal Ideation, Hopelessness, Irritability, Memory Loss, Mood Swings, Panic Attacks, Paranoia, Suicidal Ideation, Visual Hallucinations, Tactile Hallucinations, Other - Endocrine Endocrine: absent: As Per HPI, Change in Body Appearance, Change in Libido, Cold Intolorance, Deepening of Voice, Excessive Sweating, Fatigue, Flushing, Heat Intolorance, Increase in Ring/Shoe/Hat Size, Palpitations, Polydipsia, Polyphagia, Polyuria, Other - Hematologic/Lymphatic Hematologic: As Per HPI Past Patient History - Infectious Disease Hx of Infectious Diseases: None - Past Medical History & Family History Past Medical History?: Yes - Past Social History Smoking Status: Never Smoked - CARDIAC Hx Hypertension: Yes - PULMONARY Hx Asthma: Yes - NEUROLOGICAL Hx Neurological Disorder: No Hx Seizures: Yes - HEENT Hx HEENT Problems: No - RENAL Hx Chronic Kidney Disease: No - ENDOCRINE/METABOLIC Hx Endocrine Disorders: No - HEMATOLOGICAL/ONCOLOGICAL Hx Human Immunodeficiency Virus (HIV): No - INTEGUMENTARY Hx Eczema: Yes - MUSCULOSKELETAL/RHEUMATOLOGICAL Hx Falls: Yes Hx Herniated Disk: Yes (2 weeks ago) - GASTROINTESTINAL Hx Gastrointestinal Disorders: No Hx Liver Failure: (liver problems) Other/Comment: Liver rupture Jul 2016 - GENITOURINARY/GYNECOLOGICAL Hx Genitourinary Disorders: No - PSYCHIATRIC Hx Anxiety: Yes Hx Substance Use: No - SURGICAL HISTORY Hx Surgeries: Yes Hx Section: Yes Hx Orthopedic Surgery: Yes - ANESTHESIA Hx Anesthesia: Yes Hx Anesthesia Reactions: No Hx Malignant Hyperthermia: No Meds Allergies/Adverse Reactions: Allergies Allergy/AdvReac Type Severity Reaction Status Date / Time No Known Allergies Allergy Verified 10/13/16 04:36 - Medications Medications: Current Medications Albuterol (Ventolin Hfa 90 Mcg/Actuation (8 G)) 1 puff IH RQ6 PRN PRN Reason: Shortness of Breath Albuterol/Ipratropium (Duoneb 3 Mg/0.5 Mg (3 Ml) Ud) 3 ml INH RQ6 PRN PRN Reason: Wheezing Last Admin: 11/08/16 21:45 Dose: 3 ml Chlordiazepoxide (Librium) 5 mg PO Q12 [facility] Stop: 11/13/16 22:01 Last Admin: 11/13/16 09:57 Dose: 5 mg Fluticasone Propionate (Flonase) 1 spr NS DAILY [facility] Last Admin: 11/13/16 09:57 Dose: Not Given Folic Acid (Folic Acid) 1 mg PO DAILY [facility] Last Admin: 11/13/16 09:57 Dose: 1 mg Furosemide (Lasix) 20 mg PO DAILY [facility] Last Admin: 11/13/16 09:57 Dose: 20 mg Gabapentin (Neurontin) 300 mg PO TID [facility] Last Admin: 11/13/16 09:57 Dose: 300 mg Hydromorphone HCl (Dilaudid) 0.5 mg IVP Q4H PRN PRN Reason: Pain, moderate (4-7) Last Admin: 11/13/16 08:51 Dose: 0.5 mg Metronidazole (Flagyl) 250 mg in 50 mls @ 100 mls/hr IVPB Q8 [facility] Stop: 11/17/16 14:01 Last Admin: 11/13/16 05:35 Dose: 100 mls/hr Vancomycin HCl 1 gm/ Sodium (Chloride) 250 mls @ 166.7 mls/hr IVPB Q24H [facility] Last Admin: 11/12/16 14:45 Dose: 166.7 mls/hr Lactulose (Enulose) 20 gm PO HS [facility] Last Admin: 11/12/16 21:18 Dose: 20 gm Ondansetron HCl (Zofran Inj) 4 mg IVP Q6 PRN PRN Reason: Nausea/Vomiting Last Admin: 11/11/16 06:42 Dose: 4 mg Spironolactone (Aldactone) 25 mg PO DAILY [facility] Last Admin: 11/13/16 09:56 Dose: 25 mg Thiamine HCl (Vitamin B1 Tab) 100 mg PO DAILY [facility] Last Admin: 11/13/16 09:57 Dose: 100 mg Physical Exam - Constitutional Appears: Non-toxic, Chronically Ill - Head Exam Head Exam: NORMOCEPHALIC - Eye Exam Eye Exam: PERRL, Scleral icterus - ENT Exam ENT Exam: Mucous Membranes Dry, Normal External Ear Exam, Normal Oropharynx - Neck Exam Neck exam: Negative for: Lymphadenopathy - Respiratory Exam Respiratory Exam: Decreased Breath Sounds, Rales, Rhonchi - Cardiovascular Exam Cardiovascular Exam: REGULAR RHYTHM, +S1, +S2 - GI/Abdominal Exam GI & Abdominal Exam: Diminished Bowel Sounds, Soft. absent: Tenderness - Rectal Exam Rectal Exam: Deferred - Exam Exam: NORMAL INSPECTION - Extremities Exam Extremities exam: Positive for: pedal pulses present. Negative for: calf tenderness, pedal edema, tenderness - Back Exam Back exam: absent: CVA tenderness (L), CVA tenderness (R), paraspinal tenderness - Neurological Exam Neurological exam: Alert, CN II-XII Intact, Oriented x3, Reflexes Normal - Psychiatric Exam Psychiatric exam: Normal Mood - Skin Skin Exam: Dry Results - Vital Signs Recent Vital Signs: Last Vital Signs Temp 98.1 F 11/13/16 07:00 Pulse 108 H 11/13/16 07:00 Resp 18 11/13/16 07:00 BP 108/69 11/13/16 09:57 Pulse Ox 93 L 11/13/16 07:00 - Labs Result Diagrams: 11/13/16 10:25 11/13/16 10:25 Labs: Laboratory Results - last 24 hr 11/12/16 11/12/16 11/13/16 13:50 19:44 01:13 WBC RBC Hgb Hct MCV MCH MCHC RDW Plt Count MPV Neut % (Auto) Lymph % (Auto) Carver % (Auto) Eos % (Auto) Baso % (Auto) Neut # Lymph # Carver # Eos # Baso # Neutrophils % (Manual) Band Neutrophils % Lymphocytes % (Manual) Monocytes % (Manual) Platelet Estimate Hypochromasia (manual) Poikilocytosis (manual Anisocytosis (manual) Microcytosis (manual) Macrocytosis (manual) Target Cells Sodium Potassium Chloride Carbon Dioxide Anion Gap BUN Creatinine Est GFR ( Amer) Est GFR (Non-Af Amer) Random Glucose Calcium Total Bilirubin AST ALT Alkaline Phosphatase Total Protein Albumin Globulin Albumin/Globulin Ratio Beta HCG, Quant < 2.39 Urine Color Catia Urine Clarity Clear Urine pH 8.0 Ur Specific [employer] 1.018 Urine Protein 1+ H Urine Glucose (UA) Normal Urine Ketones Negative Urine Blood Negative Urine Nitrate Negative Urine Bilirubin Negative Urine Urobilinogen Normal Ur Leukocyte Esterase Neg Urine WBC (Auto) 3 Urine RBC (Auto) < 1 Ur Squamous Epith Cells 6 H Urine Bacteria Rare C. difficile Ag & Toxin Negative 11/13/16 11/13/16 10:25 10:25 WBC 28.1 H RBC 2.81 L Hgb 9.4 L Hct 30.0 L MCV 106.5 H MCH 33.4 H MCHC 31.3 L RDW 16.7 H Plt Count 431 H MPV 9.5 Neut % (Auto) 86.1 H Lymph % (Auto) 9.3 L Carver % (Auto) 3.6 Eos % (Auto) 0.4 Baso % (Auto) 0.6 Neut # 24.2 H Lymph # 2.6 Carver # 1.0 H Eos # 0.1 Baso # 0.2 Neutrophils % (Manual) 87 H Band Neutrophils % 2 Lymphocytes % (Manual) 7 L Monocytes % (Manual) 4 Platelet Estimate Normal Hypochromasia (manual) Slight Poikilocytosis (manual Slight Anisocytosis (manual) Slight Microcytosis (manual) Slight Macrocytosis (manual) Slight Target Cells Slight Sodium 134 Potassium 3.9 Chloride 94 L Carbon Dioxide 27 Anion Gap 17 BUN 6 L Creatinine 0.5 L Est GFR ( Amer) > 60 Est GFR (Non-Af Amer) > 60 Random Glucose 82 Calcium 8.3 L Total Bilirubin 3.8 H AST 96 H ALT 32 Alkaline Phosphatase 190 H Total Protein 6.8 Albumin 3.1 L Globulin 3.7 Albumin/Globulin Ratio 0.8 L Beta HCG, Quant Urine Color Urine Clarity Urine pH Ur Specific [employer] Urine Protein Urine Glucose (UA) Urine Ketones Urine Blood Urine Nitrate Urine Bilirubin Urine Urobilinogen Ur Leukocyte Esterase Urine WBC (Auto) Urine RBC (Auto) Ur Squamous Epith Cells Urine Bacteria C. difficile Ag & Toxin Assessment & Plan (1) Jaundice Status: Acute (2) Liver failure Status: Chronic (3) CHF (congestive heart failure) Status: Acute (4) Coagulopathy Status: Acute (5) Leukocytosis Status: Acute (6) Pleural effusion Status: Acute - Assessment and Plan (Free Text) Assessment: will repeat sputum c/s may need to consider adding merrem for ESBL
[2016-11-13] MEDS: Albuterol-Ipratrop 3 mg / 0.5 (3 ml) UD INH PRN (13:11)
[2016-11-13] MEDS ORDERED: Meropenem 1 GM in Sodium Chloride 0.9% 100 ML IVPB SCH (14:00)
[2016-11-13 16:51] LABS: GLUCOSE PLEURAL FLUID 118 mg/dL; LDH PLEURAL FLUID 118 U/L
[2016-11-13] MEDS: Meropenem 1 GM in Sodium Chloride 0.9% 100 ML IVPB SCH ×2 (18:09→23:53)
[2016-11-14] MEDS: HYDROmorphone 0.5 mg/0.5 ml ISec IVP PRN ×5 (02:03→21:32)
[2016-11-14] MEDS: metroNIDAZOLE IV 250mg/50 ml 250 MG/50 ML BAG IVPB SCH ×3 (05:15→21:32)
[2016-11-14] MEDS: Meropenem 1 GM in Sodium Chloride 0.9% 100 ML IVPB SCH ×2 (09:20→17:37)
[2016-11-14] MEDS: Fluticasone Nasal 50 mcg/Spray NS SCH (09:20)
--- NOTE | 2016-11-14 12:21 | CP.PCM.PN ---
Subjective - Date & Time of Evaluation Date of Evaluation: 11/14/16 Time of Evaluation: 09:00 - Subjective Subjective: events noted iv merrem ordered cont rx Objective - Vital Signs/Intake and Output Vital Signs (last 24 hours): Temp Pulse Resp BP Pulse Ox 98.1 F 104 H 20 120/77 96 11/14/16 08:30 11/14/16 08:30 11/14/16 08:30 11/14/16 09:21 11/14/16 08:30 - Medications Medications: Current Medications Albuterol (Ventolin Hfa 90 Mcg/Actuation (8 G)) 1 puff IH RQ6 PRN PRN Reason: Shortness of Breath Albuterol/Ipratropium (Duoneb 3 Mg/0.5 Mg (3 Ml) Ud) 3 ml INH RQ6 PRN PRN Reason: Wheezing Last Admin: 11/13/16 13:11 Dose: 3 ml Fluticasone Propionate (Flonase) 1 spr NS DAILY [facility] Last Admin: 11/14/16 09:20 Dose: Not Given Folic Acid (Folic Acid) 1 mg PO DAILY [facility] Last Admin: 11/14/16 09:20 Dose: 1 mg Furosemide (Lasix) 20 mg PO DAILY [facility] Last Admin: 11/14/16 09:21 Dose: 20 mg Gabapentin (Neurontin) 300 mg PO TID [facility] Last Admin: 11/14/16 09:19 Dose: 300 mg Hydromorphone HCl (Dilaudid) 0.5 mg IVP Q4H PRN PRN Reason: Pain, moderate (4-7) Last Admin: 11/14/16 10:08 Dose: 0.5 mg Metronidazole (Flagyl) 250 mg in 50 mls @ 100 mls/hr IVPB Q8 [facility] Stop: 11/17/16 14:01 Last Admin: 11/14/16 05:15 Dose: 100 mls/hr Vancomycin HCl 1 gm/ Sodium (Chloride) 250 mls @ 166.7 mls/hr IVPB Q24H [facility] Last Admin: 11/13/16 14:15 Dose: 166.7 mls/hr Meropenem 1 gm/ Sodium (Chloride) 100 mls @ 100 mls/hr IVPB Q8H [facility] Last Admin: 11/14/16 09:20 Dose: 100 mls/hr Lactulose (Enulose) 20 gm PO HS [facility] Last Admin: 11/13/16 21:25 Dose: 20 gm Ondansetron HCl (Zofran Inj) 4 mg IVP Q6 PRN PRN Reason: Nausea/Vomiting Last Admin: 11/11/16 06:42 Dose: 4 mg Spironolactone (Aldactone) 25 mg PO DAILY [facility] Last Admin: 11/14/16 09:19 Dose: 25 mg Thiamine HCl (Vitamin B1 Tab) 100 mg PO DAILY [facility] Last Admin: 11/14/16 09:20 Dose: 100 mg - Labs Labs: 11/13/16 10:25 11/13/16 10:25 PT 16.9 SECONDS (9.7-12.2) H 11/08/16 11:35 INR 1.5 11/08/16 11:35 APTT 36 SECONDS (21-34) H 11/06/16 20:11 - Constitutional Appears: Non-toxic - Head Exam Head Exam: NORMOCEPHALIC - Eye Exam Eye Exam: Scleral icterus - ENT Exam ENT Exam: Mucous Membranes Dry - Neck Exam Neck Exam: absent: Lymphadenopathy - Respiratory Exam Respiratory Exam: Decreased Breath Sounds - Cardiovascular Exam Cardiovascular Exam: REGULAR RHYTHM Assessment and Plan (1) Jaundice Status: Acute (2) Liver failure Status: Chronic (3) CHF (congestive heart failure) Status: Acute (4) Coagulopathy Status: Acute (5) Leukocytosis Status: Acute (6) Pleural effusion Status: Acute
--- NOTE | 2016-11-14 22:14 | CP.PCM.PN ---
Subjective - Date & Time of Evaluation Date of Evaluation: 11/13/16 Time of Evaluation: 22:14 - Subjective Subjective: Patient is currently feeling okay, complaining of shaking and tremor. No chest pain. Denies any nausea vomiting. Diarrhea is negative Vital signs reviewed Chest good air entry bilaterally regular heart sound nontender abdomen. Some images no pedal edema Patient's labs reviewed WBC persistently elevated, better Assessment and recommendation: 31-year-old female with a history of alcoholism, liver cirrhosis. Admitted with the sepsis. Right-sided pleural effusion. Status post thoracentesis. On antibiotic. We'll repeat the labs Objective - Vital Signs/Intake and Output Vital Signs (last 24 hours): Temp Pulse Resp BP Pulse Ox 98.9 F 117 H 20 124/72 94 L 11/14/16 15:10 11/14/16 15:10 11/14/16 15:10 11/14/16 15:10 11/14/16 15:10 - Medications Medications: Current Medications Albuterol (Ventolin Hfa 90 Mcg/Actuation (8 G)) 1 puff IH RQ6 PRN PRN Reason: Shortness of Breath Albuterol/Ipratropium (Duoneb 3 Mg/0.5 Mg (3 Ml) Ud) 3 ml INH RQ6 PRN PRN Reason: Wheezing Last Admin: 11/13/16 13:11 Dose: 3 ml Fluticasone Propionate (Flonase) 1 spr NS DAILY [facility] Last Admin: 11/14/16 09:20 Dose: Not Given Folic Acid (Folic Acid) 1 mg PO DAILY [facility] Last Admin: 11/14/16 09:20 Dose: 1 mg Furosemide (Lasix) 20 mg PO DAILY [facility] Last Admin: 11/14/16 09:21 Dose: 20 mg Gabapentin (Neurontin) 300 mg PO TID [facility] Last Admin: 11/14/16 18:28 Dose: 300 mg Hydromorphone HCl (Dilaudid) 0.5 mg IVP Q4H PRN PRN Reason: Pain, moderate (4-7) Last Admin: 11/14/16 21:32 Dose: 0.5 mg Metronidazole (Flagyl) 250 mg in 50 mls @ 100 mls/hr IVPB Q8 [facility] Stop: 11/17/16 14:01 Last Admin: 11/14/16 21:32 Dose: 100 mls/hr Meropenem 1 gm/ Sodium (Chloride) 100 mls @ 100 mls/hr IVPB Q8H [facility] Last Admin: 11/14/16 17:37 Dose: 100 mls/hr Vancomycin HCl 1 gm/ Sodium (Chloride) 250 mls @ 166.7 mls/hr IVPB Q12H [facility] Last Admin: 11/14/16 14:33 Dose: 166.7 mls/hr Lactulose (Enulose) 20 gm PO HS [facility] Last Admin: 11/14/16 21:32 Dose: 20 gm Ondansetron HCl (Zofran Inj) 4 mg IVP Q6 PRN PRN Reason: Nausea/Vomiting Last Admin: 11/14/16 13:47 Dose: 4 mg Spironolactone (Aldactone) 25 mg PO DAILY [facility] Last Admin: 11/14/16 09:19 Dose: 25 mg Thiamine HCl (Vitamin B1 Tab) 100 mg PO DAILY [facility] Last Admin: 11/14/16 09:20 Dose: 100 mg - Labs Labs: 11/13/16 10:25 11/13/16 10:25 PT 16.9 SECONDS (9.7-12.2) H 11/08/16 11:35 INR 1.5 11/08/16 11:35 APTT 36 SECONDS (21-34) H 11/06/16 20:11 Assessment and Plan (1) Liver failure Status: Chronic (2) CHF (congestive heart failure) Status: Acute (3) Coagulopathy Status: Acute (4) Hepatic encephalopathy Status: Acute
--- NOTE | 2016-11-14 22:15 | CP.PCM.PN ---
Subjective - Date & Time of Evaluation Date of Evaluation: 11/14/16 Time of Evaluation: 22:15 - Subjective Subjective: Patient today is feeling better. Complaining of lower back pain. Patient was seen by infectious disease specialist today. Cough is negative, abdominal pain is negative, patient has no PICC line at this time. Vital signs reviewed Chest good air entry bilaterally regular heart sound nontender abdomen. Labs: So for the culture is negative. Microbiology so far nonspecific Assessment and a condition: 31-year-old female with alcoholism liver cirrhosis admitted with the right- sided pleural effusion pneumonia gram-negative sepsis in the past admitted with a possible sepsis. Status post a thoracentesis. Repeat the blood test in the morning, elevated WBC nonspecific. Will follow the patient Objective - Vital Signs/Intake and Output Vital Signs (last 24 hours): Temp Pulse Resp BP Pulse Ox 98.9 F 117 H 20 124/72 94 L 11/14/16 15:10 11/14/16 15:10 11/14/16 15:10 11/14/16 15:10 11/14/16 15:10 - Medications Medications: Current Medications Albuterol (Ventolin Hfa 90 Mcg/Actuation (8 G)) 1 puff IH RQ6 PRN PRN Reason: Shortness of Breath Albuterol/Ipratropium (Duoneb 3 Mg/0.5 Mg (3 Ml) Ud) 3 ml INH RQ6 PRN PRN Reason: Wheezing Last Admin: 11/13/16 13:11 Dose: 3 ml Fluticasone Propionate (Flonase) 1 spr NS DAILY [facility] Last Admin: 11/14/16 09:20 Dose: Not Given Folic Acid (Folic Acid) 1 mg PO DAILY [facility] Last Admin: 11/14/16 09:20 Dose: 1 mg Furosemide (Lasix) 20 mg PO DAILY [facility] Last Admin: 11/14/16 09:21 Dose: 20 mg Gabapentin (Neurontin) 300 mg PO TID [facility] Last Admin: 11/14/16 18:28 Dose: 300 mg Hydromorphone HCl (Dilaudid) 0.5 mg IVP Q4H PRN PRN Reason: Pain, moderate (4-7) Last Admin: 11/14/16 21:32 Dose: 0.5 mg Metronidazole (Flagyl) 250 mg in 50 mls @ 100 mls/hr IVPB Q8 [facility] Stop: 11/17/16 14:01 Last Admin: 11/14/16 21:32 Dose: 100 mls/hr Meropenem 1 gm/ Sodium (Chloride) 100 mls @ 100 mls/hr IVPB Q8H [facility] Last Admin: 11/14/16 17:37 Dose: 100 mls/hr Vancomycin HCl 1 gm/ Sodium (Chloride) 250 mls @ 166.7 mls/hr IVPB Q12H [facility] Last Admin: 11/14/16 14:33 Dose: 166.7 mls/hr Lactulose (Enulose) 20 gm PO HS [facility] Last Admin: 11/14/16 21:32 Dose: 20 gm Ondansetron HCl (Zofran Inj) 4 mg IVP Q6 PRN PRN Reason: Nausea/Vomiting Last Admin: 11/14/16 13:47 Dose: 4 mg Spironolactone (Aldactone) 25 mg PO DAILY [facility] Last Admin: 11/14/16 09:19 Dose: 25 mg Thiamine HCl (Vitamin B1 Tab) 100 mg PO DAILY [facility] Last Admin: 11/14/16 09:20 Dose: 100 mg - Labs Labs: 11/13/16 10:25 11/13/16 10:25 PT 16.9 SECONDS (9.7-12.2) H 11/08/16 11:35 INR 1.5 11/08/16 11:35 APTT 36 SECONDS (21-34) H 11/06/16 20:11 Assessment and Plan (1) Liver failure Status: Chronic (2) CHF (congestive heart failure) Status: Acute (3) Coagulopathy Status: Acute (4) Hepatic encephalopathy Status: Acute
[2016-11-15] MEDS: HYDROmorphone 0.5 mg/0.5 ml ISec IVP PRN ×6 (02:35→23:04)
[2016-11-15] MEDS: metroNIDAZOLE IV 250mg/50 ml 250 MG/50 ML BAG IVPB SCH ×3 (05:00→21:00)
[2016-11-15 07:17] LABS: BASO # 0.3 K/uL (0.0-0.2); BASO % 1.1 % (0.0-2.0); EOS # 0.1 K/uL (0.0-0.7); EOS % 0.3 % (0.0-4.0); HEMATOCRIT 27.4 % (34.0-47.0); LYMPH % 10.9 % (20.0-40.0); MEAN CELL VOLUME 104.9 fL (81.0-99.0); MEAN CORPUSCULAR HEMOGLOBIN 33.8 pg (27.0-31.0); MEAN CORPUSCULAR HGB CONC 32.2 g/dL (33.0-37.0); MEAN PLATELET VOLUME 9.3 fL (7.2-11.7); MONO # 0.7 K/uL (0.0-0.8); MONO % 2.4 % (0.0-10.0); NRBC % 0.1 % (0.0-2.0); RED CELL DISTRIBUTION WIDTH 16.5 % (11.5-14.5); WHITE BLOOD COUNT 27.9 K/uL (4.8-10.8)
[2016-11-15 07:39] LABS: CHLORIDE 98 mmol/L (98-107)
[2016-11-15 07:40] LABS: POTASSIUM 4.1 mmol/L (3.6-5.2); SODIUM 135 mmol/L (132-148)
[2016-11-15 07:42] LABS: ALB/GLOB RATIO 0.9 (1.0-2.1); AST/SGOT 89 U/L (14-36); BILIRUBIN,TOTAL 3.6 mg/dL (0.2-1.3); BLOOD UREA NITROGEN 5 mg/dL (7-17); CARBON DIOXIDE 27 mmol/L (22-30); GFR AFRICAN-AMERICAN > 60; TOTAL PROTEIN 6.3 g/dL (6.3-8.3)
[2016-11-15 07:43] LABS: ALKALINE PHOSPHATASE 171 U/L (38-126); ALT/SGPT 24 U/L (9-52); CALCIUM 7.6 mg/dl (8.6-10.4); GLUCOSE,RANDOM 123 mg/dL (65-105)
--- NOTE | 2016-11-15 08:44 | RAD ---
HISTORY: pleural effusion COMPARISON: 11/11/2016 FINDINGS: LUNGS: Mild venous congestion. Right basilar airspace opacity. PLEURA: Small right pleural effusion. CARDIOVASCULAR: Normal. OSSEOUS STRUCTURES: No significant abnormalities. VISUALIZED UPPER ABDOMEN: Normal. OTHER FINDINGS: None. IMPRESSION: Mild venous congestion. Right basilar airspace opacity. Small right pleural effusion.
[2016-11-15] MEDS: Meropenem 1 GM in Sodium Chloride 0.9% 100 ML IVPB SCH ×4 (09:01→23:00)
[2016-11-15] MEDS: Fluticasone Nasal 50 mcg/Spray NS SCH (09:59)
--- NOTE | 2016-11-15 12:04 | RAD ---
HISTORY: verify right PICC COMPARISON: Chest x-ray performed 11/15/16 TECHNIQUE: Chest, one view. FINDINGS: Right-sided PICC terminates at the expected location of the cavoatrial junction. LUNGS: Small right pleural effusion and or atelectasis/infiltrate. No definite pneumothorax. Please note that chest x-ray has limited sensitivity for the detection of pulmonary masses. CARDIOVASCULAR: The cardiomediastinal silhouette appears within normal limits of size. OSSEOUS STRUCTURES: No acute osseous abnormality identified. VISUALIZED UPPER ABDOMEN: Unremarkable. OTHER FINDINGS: None. IMPRESSION: Right-sided PICC. Small right pleural effusion and or atelectasis/infiltrate.
--- NOTE | 2016-11-15 18:05 | CP.PCM.PN ---
Subjective - Date & Time of Evaluation Date of Evaluation: 11/15/16 Time of Evaluation: 08:00 - Subjective Subjective: Positive cocci from cath tip iv rx in progress Objective - Vital Signs/Intake and Output Vital Signs (last 24 hours): Temp Pulse Resp BP Pulse Ox 98.2 F 112 H 20 118/74 92 L 11/15/16 15:00 11/15/16 15:00 11/15/16 15:00 11/15/16 15:00 11/15/16 15:00 - Medications Medications: Current Medications Albuterol (Ventolin Hfa 90 Mcg/Actuation (8 G)) 1 puff IH RQ6 PRN PRN Reason: Shortness of Breath Albuterol/Ipratropium (Duoneb 3 Mg/0.5 Mg (3 Ml) Ud) 3 ml INH RQ6 PRN PRN Reason: Wheezing Last Admin: 11/13/16 13:11 Dose: 3 ml Fluticasone Propionate (Flonase) 1 spr NS DAILY [facility] Last Admin: 11/15/16 09:59 Dose: Not Given Folic Acid (Folic Acid) 1 mg PO DAILY [facility] Last Admin: 11/15/16 09:58 Dose: 1 mg Furosemide (Lasix) 20 mg PO DAILY [facility] Last Admin: 11/15/16 09:58 Dose: 20 mg Gabapentin (Neurontin) 300 mg PO TID [facility] Last Admin: 11/15/16 17:45 Dose: 300 mg Hydromorphone HCl (Dilaudid) 0.5 mg IVP Q4H PRN PRN Reason: Pain, moderate (4-7) Last Admin: 11/15/16 14:33 Dose: 0.5 mg Metronidazole (Flagyl) 250 mg in 50 mls @ 100 mls/hr IVPB Q8 [facility] Stop: 11/17/16 14:01 Last Admin: 11/15/16 14:32 Dose: 100 mls/hr Meropenem 1 gm/ Sodium (Chloride) 100 mls @ 100 mls/hr IVPB Q8H [facility] Last Admin: 11/15/16 16:38 Dose: 100 mls/hr Vancomycin HCl 1 gm/ Sodium (Chloride) 250 mls @ 166.7 mls/hr IVPB Q12H [facility] Last Admin: 11/15/16 14:32 Dose: 166.7 mls/hr Lactulose (Enulose) 20 gm PO HS [facility] Last Admin: 11/14/16 21:32 Dose: 20 gm Ondansetron HCl (Zofran Inj) 4 mg IVP Q6 PRN PRN Reason: Nausea/Vomiting Last Admin: 11/15/16 09:58 Dose: 4 mg Spironolactone (Aldactone) 25 mg PO DAILY [facility] Last Admin: 11/15/16 09:58 Dose: 25 mg Thiamine HCl (Vitamin B1 Tab) 100 mg PO DAILY [facility] Last Admin: 11/15/16 09:58 Dose: 100 mg - Labs Labs: 11/15/16 07:00 11/15/16 07:00 PT 16.9 SECONDS (9.7-12.2) H 11/08/16 11:35 INR 1.5 11/08/16 11:35 APTT 36 SECONDS (21-34) H 11/06/16 20:11 Assessment and Plan (1) Jaundice Status: Acute (2) Liver failure Status: Chronic (3) CHF (congestive heart failure) Status: Acute (4) Coagulopathy Status: Acute (5) Leukocytosis Status: Acute (6) Pleural effusion Status: Acute
[2016-11-15 18:25] LABS: BASO # 0.1 K/uL (0.0-0.2); BASO % 0.3 % (0.0-2.0); EOS # 0.1 K/uL (0.0-0.7); EOS % 0.2 % (0.0-4.0); HEMATOCRIT 27.5 % (34.0-47.0); LYMPH # 2.7 K/uL (1.0-4.3); LYMPH % 9.9 % (20.0-40.0); MEAN CELL VOLUME 105.2 fL (81.0-99.0); MEAN CORPUSCULAR HEMOGLOBIN 33.1 pg (27.0-31.0); MEAN CORPUSCULAR HGB CONC 31.5 g/dL (33.0-37.0); MEAN PLATELET VOLUME 9.1 fL (7.2-11.7); MONO % 3.6 % (0.0-10.0); PLATELET COUNT 447 K/uL (130-400); RED CELL DISTRIBUTION WIDTH 16.5 % (11.5-14.5); WHITE BLOOD COUNT 27.3 K/uL (4.8-10.8)
[2016-11-15 18:34] LABS: INR 1.5
[2016-11-15 19:18] LABS: NEUTROPHIL 83 % (50-75); TOTAL CELLS COUNTED 100
--- NOTE | 2016-11-15 20:18 | CP.PCM.PN ---
Subjective - Date & Time of Evaluation Date of Evaluation: 11/15/16 Time of Evaluation: 20:16 - Subjective Subjective: Spoke to the patient's mother today. Family was contacting the [facility] for a liver transplant. I spoke to the liver transplant team at the [facility], and he explained to the ti about the patient's condition. At this time patient's condition does not warrant acute transplantation evaluation, they advised me to keep in contact in case if there is any condition changes. Meanwhile patient will be needing and continuously needing the treatment for infectious source. Patient will also need psychiatric evaluation and management for the detoxification of alcohol use the patient quit drinking alcohol year ago. Patient today complaining of some minimal bleeding in the stools. Minimal abdominal pain, also noted. No nausea vomiting no other major active symptoms. Had a PICC line today. Labs today reviewed. Hemoglobin is stable. WBC slight improvement noted. PICC line catheter tip showing evidence of gram-positive cocci, nonspecific. My assessment and recommendation: 31-year-old female with liver disease, chronic liver insufficiency, admitted with this sepsis. Hepatic and supple but he stable. Tremor noted. Sepsis. Continue the current treatment, GI evaluation Objective - Vital Signs/Intake and Output Vital Signs (last 24 hours): Temp Pulse Resp BP Pulse Ox 98.2 F 112 H 20 118/74 92 L 11/15/16 15:00 11/15/16 15:00 11/15/16 15:00 11/15/16 15:00 11/15/16 15:00 - Medications Medications: Current Medications Albuterol (Ventolin Hfa 90 Mcg/Actuation (8 G)) 1 puff IH RQ6 PRN PRN Reason: Shortness of Breath Albuterol/Ipratropium (Duoneb 3 Mg/0.5 Mg (3 Ml) Ud) 3 ml INH RQ6 PRN PRN Reason: Wheezing Last Admin: 11/13/16 13:11 Dose: 3 ml Fluticasone Propionate (Flonase) 1 spr NS DAILY [facility] Last Admin: 11/15/16 09:59 Dose: Not Given Folic Acid (Folic Acid) 1 mg PO DAILY [facility] Last Admin: 11/15/16 09:58 Dose: 1 mg Furosemide (Lasix) 20 mg PO DAILY [facility] Last Admin: 11/15/16 09:58 Dose: 20 mg Gabapentin (Neurontin) 300 mg PO TID [facility] Last Admin: 11/15/16 17:45 Dose: 300 mg Hydromorphone HCl (Dilaudid) 0.5 mg IVP Q4H PRN PRN Reason: Pain, moderate (4-7) Last Admin: 11/15/16 19:02 Dose: 0.5 mg Metronidazole (Flagyl) 250 mg in 50 mls @ 100 mls/hr IVPB Q8 [facility] Stop: 11/17/16 14:01 Last Admin: 11/15/16 14:32 Dose: 100 mls/hr Meropenem 1 gm/ Sodium (Chloride) 100 mls @ 100 mls/hr IVPB Q8H [facility] Last Admin: 11/15/16 16:38 Dose: 100 mls/hr Vancomycin HCl 1 gm/ Sodium (Chloride) 250 mls @ 166.7 mls/hr IVPB Q12H [facility] Last Admin: 11/15/16 14:32 Dose: 166.7 mls/hr Lactulose (Enulose) 20 gm PO HS [facility] Last Admin: 11/14/16 21:32 Dose: 20 gm Ondansetron HCl (Zofran Inj) 4 mg IVP Q6 PRN PRN Reason: Nausea/Vomiting Last Admin: 11/15/16 09:58 Dose: 4 mg Spironolactone (Aldactone) 25 mg PO DAILY [facility] Last Admin: 11/15/16 09:58 Dose: 25 mg Thiamine HCl (Vitamin B1 Tab) 100 mg PO DAILY [facility] Last Admin: 11/15/16 09:58 Dose: 100 mg - Labs Labs: 11/15/16 18:21 11/15/16 07:00 PT 16.8 SECONDS (9.7-12.2) H 11/15/16 18:21 INR 1.5 11/15/16 18:21 APTT 52 SECONDS (21-34) H 11/15/16 18:21 Assessment and Plan (1) Liver failure Status: Chronic (2) CHF (congestive heart failure) Status: Acute (3) Coagulopathy Status: Acute (4) Hepatic encephalopathy Status: Acute
[2016-11-16] MEDS: metroNIDAZOLE IV 250mg/50 ml 250 MG/50 ML BAG IVPB SCH (21:20)
[2016-11-16] MEDS: HYDROmorphone 0.5 mg/0.5 ml ISec IVP PRN (22:18)
[2016-11-17 00:16] LABS: MEAN CORPUSCULAR HEMOGLOBIN 33.8 pg (27.0-31.0); MEAN CORPUSCULAR HGB CONC 31.8 g/dL (33.0-37.0); MEAN PLATELET VOLUME 9.3 fL (7.2-11.7); RED CELL DISTRIBUTION WIDTH 16.6 % (11.5-14.5); WHITE BLOOD COUNT 25.1 K/uL (4.8-10.8)
[2016-11-17] MEDS: Meropenem 1 GM in Sodium Chloride 0.9% 100 ML IVPB SCH ×3 (00:33→08:38)
[2016-11-17] MEDS: HYDROmorphone 0.5 mg/0.5 ml ISec IVP PRN ×5 (02:43→21:43)
[2016-11-17] MEDS: metroNIDAZOLE IV 250mg/50 ml 250 MG/50 ML BAG IVPB SCH ×3 (05:48→13:20)
[2016-11-17 08:41] LABS: INR 1.4
[2016-11-17 08:56] LABS: CHLORIDE 96 mmol/L (98-107); SODIUM 134 mmol/L (132-148)
[2016-11-17 08:59] LABS: ALB/GLOB RATIO 0.7 (1.0-2.1); ALKALINE PHOSPHATASE 178 U/L (38-126); AST/SGOT 96 U/L (14-36); BILIRUBIN,TOTAL 3.4 mg/dL (0.2-1.3); BLOOD UREA NITROGEN 6 mg/dL (7-17); CARBON DIOXIDE 30 mmol/L (22-30); GFR AFRICAN-AMERICAN > 60; TOTAL PROTEIN 6.6 g/dL (6.3-8.3)
[2016-11-17 09:00] LABS: ALT/SGPT 31 U/L (9-52); CALCIUM 8.5 mg/dl (8.6-10.4); GLUCOSE,RANDOM 74 mg/dL (65-105)
[2016-11-17 09:00] LABS: BASO # 0.6 K/uL (0.0-0.2); BASO % 2.7 % (0.0-2.0); EOS # 0.1 K/uL (0.0-0.7); EOS % 0.3 % (0.0-4.0); HEMATOCRIT 27.2 % (34.0-47.0); LYMPH # 2.8 K/uL (1.0-4.3); LYMPH % 12.1 % (20.0-40.0); MEAN CELL VOLUME 105.9 fL (81.0-99.0); MEAN CORPUSCULAR HEMOGLOBIN 33.3 pg (27.0-31.0); MEAN CORPUSCULAR HGB CONC 31.5 g/dL (33.0-37.0); MEAN PLATELET VOLUME 9.7 fL (7.2-11.7); MONO # 0.9 K/uL (0.0-0.8); MONO % 4.1 % (0.0-10.0); RED CELL DISTRIBUTION WIDTH 16.5 % (11.5-14.5); WHITE BLOOD COUNT 22.9 K/uL (4.8-10.8)
[2016-11-17] MEDS: Fluticasone Nasal 50 mcg/Spray NS SCH (11:37)
--- NOTE | 2016-11-17 14:41 | CP.PCM.PN ---
Subjective - Date & Time of Evaluation Date of Evaluation: 11/17/16 Time of Evaluation: 09:00 - Subjective Subjective: DISCUSSED ON ROUNDS TO HOLD IV RX CHECK PROCALCITONIN POOR PROGNOSIS Objective - Vital Signs/Intake and Output Vital Signs (last 24 hours): Temp Pulse Resp BP Pulse Ox 99.2 F 115 H 18 113/72 95 11/17/16 01:00 11/17/16 01:00 11/17/16 01:00 11/17/16 11:37 11/17/16 01:00 Intake and Output: 11/17/16 11/17/16 06:59 18:59 Intake Total 690 Balance 690 - Medications Medications: Current Medications Albuterol (Ventolin Hfa 90 Mcg/Actuation (8 G)) 1 puff IH RQ6 PRN PRN Reason: Shortness of Breath Albuterol/Ipratropium (Duoneb 3 Mg/0.5 Mg (3 Ml) Ud) 3 ml INH RQ6 PRN PRN Reason: Wheezing Last Admin: 11/13/16 13:11 Dose: 3 ml Fluticasone Propionate (Flonase) 1 spr NS DAILY [facility] Last Admin: 11/17/16 11:37 Dose: Not Given Folic Acid (Folic Acid) 1 mg PO DAILY [facility] Last Admin: 11/17/16 11:36 Dose: 1 mg Furosemide (Lasix) 20 mg PO DAILY [facility] Last Admin: 11/17/16 11:37 Dose: 20 mg Gabapentin (Neurontin) 300 mg PO TID [facility] Last Admin: 11/17/16 14:01 Dose: 300 mg Hydromorphone HCl (Dilaudid) 0.5 mg IVP Q4H PRN PRN Reason: Pain, moderate (4-7) Last Admin: 11/17/16 11:55 Dose: 0.5 mg Meropenem 1 gm/ Sodium (Chloride) 100 mls @ 100 mls/hr IVPB Q8H [facility] Last Admin: 11/17/16 08:38 Dose: 100 mls/hr Vancomycin HCl 1 gm/ Sodium (Chloride) 250 mls @ 166.7 mls/hr IVPB Q12H [facility] Last Admin: 11/17/16 14:01 Dose: 166.7 mls/hr Lactulose (Enulose) 20 gm PO HS [facility] Last Admin: 11/16/16 21:15 Dose: 20 gm Ondansetron HCl (Zofran Inj) 4 mg IVP Q6 PRN PRN Reason: Nausea/Vomiting Last Admin: 11/15/16 09:58 Dose: 4 mg Spironolactone (Aldactone) 25 mg PO DAILY [facility] Last Admin: 11/17/16 11:36 Dose: 25 mg Thiamine HCl (Vitamin B1 Tab) 100 mg PO DAILY [facility] Last Admin: 11/17/16 11:37 Dose: 100 mg - Labs Labs: 11/17/16 04:44 11/17/16 08:09 PT 16.0 SECONDS (9.7-12.2) H 11/17/16 08:09 INR 1.4 11/17/16 08:09 APTT 46 SECONDS (21-34) H D 11/17/16 08:09 Assessment and Plan (1) Jaundice Status: Acute (2) Liver failure Status: Chronic (3) CHF (congestive heart failure) Status: Acute (4) Coagulopathy Status: Acute (5) Leukocytosis Status: Acute (6) Pleural effusion Status: Acute
[2016-11-18] MEDS: HYDROmorphone 0.5 mg/0.5 ml ISec IVP PRN ×6 (01:40→21:35)
[2016-11-18] MEDS: Albuterol-Ipratrop 3 mg / 0.5 (3 ml) UD INH PRN (08:32)
--- NOTE | 2016-11-18 09:43 | CP.PCM.PN ---
Subjective - Date & Time of Evaluation Date of Evaluation: 11/17/16 Time of Evaluation: 15:00 - Subjective Subjective: The patient is feeling okay, minimal tachycardia noted. But the poor appetite noted. Epigastric discomfort noted. Patient is complaining of nausea at times. No bowel, diarrhea noted. Vital signs stable otherwise. Objective - Vital Signs/Intake and Output Vital Signs (last 24 hours): Temp Pulse Resp BP Pulse Ox 99 F 126 H 20 127/79 94 L 11/18/16 00:00 11/18/16 00:00 11/18/16 00:00 11/18/16 00:00 11/18/16 00:00 Persistent tachycardia noted. Chest good air entry bilaterally regular heart sound. Nontender abdomen. Extremities edema negative Intake and Output: 11/18/16 11/18/16 06:59 18:59 Intake Total 400 Balance 400 - Medications Medications: Current Medications Albuterol (Ventolin Hfa 90 Mcg/Actuation (8 G)) 1 puff IH RQ6 PRN PRN Reason: Shortness of Breath Albuterol/Ipratropium (Duoneb 3 Mg/0.5 Mg (3 Ml) Ud) 3 ml INH RQ6 PRN PRN Reason: Wheezing Last Admin: 11/18/16 08:32 Dose: 3 ml Fluticasone Propionate (Flonase) 1 spr NS DAILY [facility] Last Admin: 11/17/16 11:37 Dose: Not Given Folic Acid (Folic Acid) 1 mg PO DAILY [facility] Last Admin: 11/17/16 11:36 Dose: 1 mg Furosemide (Lasix) 20 mg PO DAILY [facility] Last Admin: 11/17/16 11:37 Dose: 20 mg Gabapentin (Neurontin) 300 mg PO TID [facility] Last Admin: 11/17/16 18:00 Dose: 300 mg Hydromorphone HCl (Dilaudid) 0.5 mg IVP Q4H PRN PRN Reason: Pain, moderate (4-7) Last Admin: 11/18/16 05:42 Dose: 0.5 mg Lactulose (Enulose) 20 gm PO HS [facility] Last Admin: 11/17/16 21:43 Dose: 20 gm Ondansetron HCl (Zofran Inj) 4 mg IVP Q6 PRN PRN Reason: Nausea/Vomiting Last Admin: 11/15/16 09:58 Dose: 4 mg Spironolactone (Aldactone) 25 mg PO DAILY [facility] Last Admin: 11/17/16 11:36 Dose: 25 mg Thiamine HCl (Vitamin B1 Tab) 100 mg PO DAILY [facility] Last Admin: 11/17/16 11:37 Dose: 100 mg - Labs Labs: 11/17/16 04:44 11/17/16 08:09 PT 16.0 SECONDS (9.7-12.2) H 11/17/16 08:09 INR 1.4 11/17/16 08:09 APTT 46 SECONDS (21-34) H D 11/17/16 08:09 Assessment and Plan (1) Liver failure Status: Chronic (2) CHF (congestive heart failure) Assessment & Plan: Patient with liver failure. Complicated with the sepsis. Right-sided pneumonia. Hydrothorax. Status post thoracentesis. I spoke to the ED given the persistent elevation of the WBC, which is less likely infectious process. Will hold of the antibiotic for 2 days, we'll repeat the echocardiogram and further testing on Sunday. And will follow the patient Status: Acute (3) Coagulopathy Status: Acute (4) Hepatic encephalopathy Status: Acute
--- NOTE | 2016-11-18 09:45 | CP.PCM.PN ---
Subjective - Date & Time of Evaluation Date of Evaluation: 11/18/16 Time of Evaluation: 09:45 - Subjective Subjective: The patient this morning complaining of some nausea. Epigastric discomfort. Palpitation noted. No chest pain. No wheezing. Poor appetite. Abdominal pain, epigastric area noted Objective - Vital Signs/Intake and Output Vital Signs (last 24 hours): Temp Pulse Resp BP Pulse Ox 99 F 126 H 20 127/79 94 L 11/18/16 00:00 11/18/16 00:00 11/18/16 00:00 11/18/16 00:00 11/18/16 00:00 On examination: HEENT PERRLA, neck supple No thyromegaly was noted and no cervical adenopathy noted Chest bilateral good air entry, no wheezing or rales noted regular heart sound, tachycardia note Abdomen soft and no organomegaly Extremities no pedal edema, no leg swelling, pedal pulses are good. 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 alert awake oriented x3 no functional neurological deficit Intake and Output: 11/18/16 11/18/16 06:59 18:59 Intake Total 400 Balance 400 - Medications Medications: Current Medications Albuterol (Ventolin Hfa 90 Mcg/Actuation (8 G)) 1 puff IH RQ6 PRN PRN Reason: Shortness of Breath Albuterol/Ipratropium (Duoneb 3 Mg/0.5 Mg (3 Ml) Ud) 3 ml INH RQ6 PRN PRN Reason: Wheezing Last Admin: 11/18/16 08:32 Dose: 3 ml Fluticasone Propionate (Flonase) 1 spr NS DAILY [facility] Last Admin: 11/17/16 11:37 Dose: Not Given Folic Acid (Folic Acid) 1 mg PO DAILY [facility] Last Admin: 11/17/16 11:36 Dose: 1 mg Furosemide (Lasix) 20 mg PO DAILY [facility] Last Admin: 11/17/16 11:37 Dose: 20 mg Gabapentin (Neurontin) 300 mg PO TID [facility] Last Admin: 11/17/16 18:00 Dose: 300 mg Hydromorphone HCl (Dilaudid) 0.5 mg IVP Q4H PRN PRN Reason: Pain, moderate (4-7) Last Admin: 11/18/16 05:42 Dose: 0.5 mg Lactulose (Enulose) 20 gm PO HS [facility] Last Admin: 11/17/16 21:43 Dose: 20 gm Ondansetron HCl (Zofran Inj) 4 mg IVP Q6 PRN PRN Reason: Nausea/Vomiting Last Admin: 11/15/16 09:58 Dose: 4 mg Spironolactone (Aldactone) 25 mg PO DAILY [facility] Last Admin: 11/17/16 11:36 Dose: 25 mg Thiamine HCl (Vitamin B1 Tab) 100 mg PO DAILY [facility] Last Admin: 11/17/16 11:37 Dose: 100 mg - Labs Labs: 11/17/16 04:44 11/17/16 08:09 PT 16.0 SECONDS (9.7-12.2) H 11/17/16 08:09 INR 1.4 11/17/16 08:09 APTT 46 SECONDS (21-34) H D 11/17/16 08:09 Assessment and Plan (1) Liver failure Assessment & Plan: patient with liver failure, right pleural effusion, hydrothorax, alcoholic liver disease. Sepsis, Escherichia coli pneumonia. hold of the antibiotic for now. repeat the culture, echo on Sunday. Closely monitor. Will follow the pa Status: Chronic (2) CHF (congestive heart failure) Status: Acute (3) Coagulopathy Status: Acute (4) Hepatic encephalopathy Status: Acute
[2016-11-18] MEDS: Albuterol-Ipratrop 3 mg / 0.5 (3 ml) UD INH SCH (10:10)
[2016-11-18] MEDS: Fluticasone Nasal 50 mcg/Spray NS SCH (13:45)
[2016-11-19] MEDS: HYDROmorphone 0.5 mg/0.5 ml ISec IVP PRN ×3 (02:29→22:29)
[2016-11-19] MEDS: HYDROmorphone 1 mg/ml ISec IVP PRN ×3 (06:44→14:49)
[2016-11-19 06:50] LABS: BASO # 0.2 K/uL (0.0-0.2); BASO % 0.7 % (0.0-2.0); EOS # 0.2 K/uL (0.0-0.7); EOS % 0.6 % (0.0-4.0); HEMATOCRIT 28.1 % (34.0-47.0); LYMPH # 3.6 K/uL (1.0-4.3); LYMPH % 12.1 % (20.0-40.0); MEAN CELL VOLUME 103.3 fL (81.0-99.0); MEAN CORPUSCULAR HEMOGLOBIN 33.5 pg (27.0-31.0); MEAN CORPUSCULAR HGB CONC 32.5 g/dL (33.0-37.0); MEAN PLATELET VOLUME 9.1 fL (7.2-11.7); MONO # 1.3 K/uL (0.0-0.8); MONO % 4.3 % (0.0-10.0); NRBC % 0.1 % (0.0-2.0); RED CELL DISTRIBUTION WIDTH 16.3 % (11.5-14.5); WHITE BLOOD COUNT 29.4 K/uL (4.8-10.8)
[2016-11-19 07:07] LABS: CHLORIDE 98 mmol/L (98-107)
[2016-11-19 07:08] LABS: POTASSIUM 4.1 mmol/L (3.6-5.2); SODIUM 137 mmol/L (132-148)
[2016-11-19 07:10] LABS: ALB/GLOB RATIO 0.8 (1.0-2.1); AST/SGOT 124 U/L (14-36); BILIRUBIN,TOTAL 3.4 mg/dL (0.2-1.3); CARBON DIOXIDE 32 mmol/L (22-30); GFR AFRICAN-AMERICAN > 60; TOTAL PROTEIN 7.2 g/dL (6.3-8.3)
[2016-11-19 07:11] LABS: ALKALINE PHOSPHATASE 156 U/L (38-126); ALT/SGPT 30 U/L (9-52); BLOOD UREA NITROGEN 9 mg/dL (7-17); CALCIUM 8.5 mg/dl (8.6-10.4); GLUCOSE,RANDOM 92 mg/dL (65-105)
--- NOTE | 2016-11-19 07:44 | CP.PCM.PN ---
Subjective - Date & Time of Evaluation Date of Evaluation: 11/19/16 Time of Evaluation: 07:43 - Subjective Subjective: Patient is feeling still not good. Complaining of abdominal pain. Abdominal distention minimally noted. Nausea noted. Poor intake noted. Right upper quadrant pain present. Objective - Vital Signs/Intake and Output Vital Signs (last 24 hours): Temp Pulse Resp BP Pulse Ox 99.0 F 89 20 104/66 93 L 11/18/16 23:14 11/18/16 23:14 11/18/16 23:14 11/18/16 23:14 11/18/16 23:14 - Medications Medications: Current Medications Albuterol/Ipratropium (Duoneb 3 Mg/0.5 Mg (3 Ml) Ud) 3 ml INH RQ12 [facility] Last Admin: 11/18/16 10:10 Dose: Not Given Chlordiazepoxide (Librium) 5 mg PO DAILY [facility] Last Admin: 11/18/16 13:45 Dose: 5 mg Fluticasone Propionate (Flonase) 1 spr NS DAILY [facility] Last Admin: 11/18/16 13:45 Dose: Not Given Folic Acid (Folic Acid) 1 mg PO DAILY [facility] Last Admin: 11/18/16 10:18 Dose: 1 mg Furosemide (Lasix) 20 mg PO DAILY [facility] Last Admin: 11/18/16 10:18 Dose: 20 mg Gabapentin (Neurontin) 300 mg PO TID [facility] Last Admin: 11/18/16 17:26 Dose: 300 mg Hydromorphone HCl (Dilaudid) 0.5 mg IVP Q4H PRN PRN Reason: Pain, moderate (4-7) Last Admin: 11/19/16 06:44 Dose: 0.5 mg Lactulose (Enulose) 20 gm PO HS [facility] Last Admin: 11/18/16 21:35 Dose: 20 gm Ondansetron HCl (Zofran Inj) 4 mg IVP Q6 PRN PRN Reason: Nausea/Vomiting Last Admin: 11/15/16 09:58 Dose: 4 mg Propranolol HCl (Inderal) 10 mg PO BID [facility] Last Admin: 11/18/16 17:26 Dose: 10 mg Spironolactone (Aldactone) 25 mg PO DAILY [facility] Last Admin: 11/18/16 10:17 Dose: 25 mg Thiamine HCl (Vitamin B1 Tab) 100 mg PO DAILY [facility] Last Admin: 11/18/16 10:17 Dose: 100 mg Vital signs reviewed No neck vein distention noted Chest good air entry bilaterally, no wheezing or rales noted CVS regular heart sound, no murmur noted Abdomen soft, epigastric tenderness, splenomegaly, hepatomegaly, noted. Bilateral pedal edema 1+ noted SR. 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 Hepatic encephalopathy. Labs reviewed Still elevated white count, got worse now. We'll resume the antibiotic again. Cultures were ordered. We'll also do the abdominal sonogram. We'll follow the patient Status: Chronic (2) CHF (congestive heart failure) Status: Acute (3) Coagulopathy Status: Acute (4) Hepatic encephalopathy Status: Acute
--- NOTE | 2016-11-19 08:09 | RAD ---
HISTORY: CHF COMPARISON: 11/15/2016 FINDINGS: LUNGS: Lines and tubes in stable position. Mild venous congestion. Atelectatic changes at the right lung base. Elevated right hemidiaphragm. PLEURA: No significant pleural effusion identified, no pneumothorax apparent. CARDIOVASCULAR: Normal. OSSEOUS STRUCTURES: No significant abnormalities. VISUALIZED UPPER ABDOMEN: Normal. OTHER FINDINGS: None. IMPRESSION: Lines and tubes in stable position. Mild venous congestion. Atelectatic changes at the right lung base. Elevated right hemidiaphragm.
[2016-11-19] MEDS: Albuterol-Ipratrop 3 mg / 0.5 (3 ml) UD INH SCH ×2 (08:25→20:49)
[2016-11-19] MEDS: Fluticasone Nasal 50 mcg/Spray NS SCH (10:27)
[2016-11-19 14:33] LABS: RBC URINE 1 /hpf (0-3); URINE BILIRUBIN NEGATIVE (NEGATIVE); URINE BLOOD NEGATIVE (NEGATIVE); URINE COLOR Amber (YELLOW); URINE GLUCOSE (UA) NORMAL (Normal); URINE KETONE NEGATIVE (NEGATIVE); URINE LEUKOCYTE ESTERASE NEG Leu/uL (Negative); URINE PROTEIN 1+ mg/dL (NEGATIVE); URINE UROBILINOGEN NORMAL mg/dL (0.2-1.0); WBC URINE 1 /hpf (0-5)
--- NOTE | 2016-11-19 15:11 | CP.PCM.PN ---
Subjective - Date & Time of Evaluation Date of Evaluation: 11/19/16 Time of Evaluation: 08:00 - Subjective Subjective: REPEAT C/S NEG THUS FAR Objective - Vital Signs/Intake and Output Vital Signs (last 24 hours): Temp Pulse Resp BP Pulse Ox 99.0 F 89 20 104/66 93 L 11/18/16 23:14 11/18/16 23:14 11/18/16 23:14 11/18/16 23:14 11/18/16 23:14 Intake and Output: 11/19/16 11/19/16 06:59 18:59 Intake Total 450 Balance 450 - Medications Medications: Current Medications Albuterol/Ipratropium (Duoneb 3 Mg/0.5 Mg (3 Ml) Ud) 3 ml INH RQ12 [facility] Last Admin: 11/19/16 08:25 Dose: 3 ml Chlordiazepoxide (Librium) 5 mg PO DAILY [facility] Last Admin: 11/19/16 09:24 Dose: 5 mg Fluticasone Propionate (Flonase) 1 spr NS DAILY [facility] Last Admin: 11/19/16 10:27 Dose: Not Given Folic Acid (Folic Acid) 1 mg PO DAILY [facility] Last Admin: 11/19/16 09:24 Dose: 1 mg Furosemide (Lasix) 20 mg PO DAILY [facility] Last Admin: 11/18/16 10:18 Dose: 20 mg Gabapentin (Neurontin) 300 mg PO TID [facility] Last Admin: 11/19/16 13:15 Dose: 300 mg Hydromorphone HCl (Dilaudid) 0.5 mg IVP Q4H PRN PRN Reason: Pain, moderate (4-7) Last Admin: 11/19/16 14:49 Dose: 0.5 mg Imipenem/Cilastatin Sodium 500 (mg/ Sodium Chloride) 100 mls @ 100 mls/hr IVPB Q6H [facility] Last Admin: 11/19/16 13:40 Dose: 100 mls/hr Vancomycin HCl 1 gm/ Sodium (Chloride) 250 mls @ 166.7 mls/hr IVPB Q24H [facility] Last Admin: 11/19/16 08:28 Dose: 166.7 mls/hr Lactulose (Enulose) 20 gm PO HS [facility] Last Admin: 11/18/16 21:35 Dose: 20 gm Ondansetron HCl (Zofran Inj) 4 mg IVP Q6 PRN PRN Reason: Nausea/Vomiting Last Admin: 11/15/16 09:58 Dose: 4 mg Propranolol HCl (Inderal) 10 mg PO BID [facility] Last Admin: 11/19/16 09:24 Dose: 10 mg Spironolactone (Aldactone) 25 mg PO DAILY [facility] Last Admin: 11/18/16 10:17 Dose: 25 mg Thiamine HCl (Vitamin B1 Tab) 100 mg PO DAILY [facility] Last Admin: 11/19/16 09:24 Dose: 100 mg - Labs Labs: 11/19/16 06:38 11/19/16 06:38 PT 16.0 SECONDS (9.7-12.2) H 11/17/16 08:09 INR 1.4 11/17/16 08:09 APTT 46 SECONDS (21-34) H D 11/17/16 08:09 - Constitutional Appears: Non-toxic, Chronically Ill - Head Exam Head Exam: NORMOCEPHALIC - Eye Exam Eye Exam: Scleral icterus - ENT Exam ENT Exam: Mucous Membranes Dry - Neck Exam Neck Exam: absent: Lymphadenopathy - Respiratory Exam Respiratory Exam: Decreased Breath Sounds, Rhonchi - Cardiovascular Exam Cardiovascular Exam: REGULAR RHYTHM, +S1, +S2 Assessment and Plan (1) Jaundice Status: Acute (2) Liver failure Status: Chronic (3) CHF (congestive heart failure) Status: Acute (4) Coagulopathy Status: Acute (5) Leukocytosis Status: Acute (6) Pleural effusion Status: Acute
[2016-11-20] MEDS: HYDROmorphone 0.5 mg/0.5 ml ISec IVP PRN ×5 (06:48→22:49)
[2016-11-20] MEDS: Albuterol-Ipratrop 3 mg / 0.5 (3 ml) UD INH SCH ×2 (08:51→19:45)
[2016-11-20 09:44] LABS: BASO # 0.2 K/uL (0.0-0.2); BASO % 0.6 % (0.0-2.0); EOS # 0.1 K/uL (0.0-0.7); EOS % 0.6 % (0.0-4.0); HEMATOCRIT 27.6 % (34.0-47.0); LYMPH # 3.5 K/uL (1.0-4.3); LYMPH % 13.7 % (20.0-40.0); MEAN CELL VOLUME 103.6 fL (81.0-99.0); MEAN CORPUSCULAR HEMOGLOBIN 33.7 pg (27.0-31.0); MEAN CORPUSCULAR HGB CONC 32.6 g/dL (33.0-37.0); MEAN PLATELET VOLUME 9.1 fL (7.2-11.7); MONO # 0.8 K/uL (0.0-0.8); MONO % 3.2 % (0.0-10.0); RED CELL DISTRIBUTION WIDTH 16.5 % (11.5-14.5); WHITE BLOOD COUNT 25.7 K/uL (4.8-10.8)
[2016-11-20 10:08] LABS: CHLORIDE 97 mmol/L (98-107)
[2016-11-20 10:09] LABS: POTASSIUM 4.2 mmol/L (3.6-5.2); SODIUM 135 mmol/L (132-148)
[2016-11-20 10:11] LABS: BILIRUBIN,TOTAL 3.6 mg/dL (0.2-1.3); GFR AFRICAN-AMERICAN > 60
[2016-11-20 10:12] LABS: ALB/GLOB RATIO 0.8 (1.0-2.1); ALKALINE PHOSPHATASE 153 U/L (38-126); ALT/SGPT 28 U/L (9-52); AST/SGOT 134 U/L (14-36); BLOOD UREA NITROGEN 8 mg/dL (7-17); CALCIUM 8.5 mg/dl (8.6-10.4); CARBON DIOXIDE 28 mmol/L (22-30); GLUCOSE,RANDOM 135 mg/dL (65-105); TOTAL PROTEIN 7.3 g/dL (6.3-8.3)
[2016-11-20] MEDS: Fluticasone Nasal 50 mcg/Spray NS SCH (10:35)
--- NOTE | 2016-11-20 13:29 | CP.PCM.PN ---
Subjective - Date & Time of Evaluation Date of Evaluation: 11/20/16 Time of Evaluation: 07:00 - Subjective Subjective: labs noted remains weak Objective - Vital Signs/Intake and Output Vital Signs (last 24 hours): Temp Pulse Resp BP Pulse Ox 98 F 91 H 20 100/63 96 11/20/16 00:00 11/20/16 00:00 11/20/16 00:00 11/20/16 00:00 11/20/16 00:00 Intake and Output: 11/20/16 11/20/16 06:59 18:59 Intake Total 100 Balance 100 - Medications Medications: Current Medications Albuterol/Ipratropium (Duoneb 3 Mg/0.5 Mg (3 Ml) Ud) 3 ml INH RQ12 [facility] Last Admin: 11/20/16 08:51 Dose: Not Given Chlordiazepoxide (Librium) 5 mg PO DAILY [facility] Last Admin: 11/20/16 10:26 Dose: 5 mg Fluticasone Propionate (Flonase) 1 spr NS DAILY [facility] Last Admin: 11/19/16 10:27 Dose: Not Given Folic Acid (Folic Acid) 1 mg PO DAILY [facility] Last Admin: 11/20/16 10:25 Dose: 1 mg Furosemide (Lasix) 20 mg PO DAILY [facility] Last Admin: 11/18/16 10:18 Dose: 20 mg Gabapentin (Neurontin) 300 mg PO TID [facility] Last Admin: 11/20/16 10:25 Dose: 300 mg Hydromorphone HCl (Dilaudid) 0.5 mg IVP Q4H PRN PRN Reason: Pain, moderate (4-7) Last Admin: 11/20/16 10:56 Dose: 0.5 mg Imipenem/Cilastatin Sodium 500 (mg/ Sodium Chloride) 100 mls @ 100 mls/hr IVPB Q6H [facility] Last Admin: 11/20/16 09:05 Dose: 100 mls/hr Vancomycin HCl 1 gm/ Sodium (Chloride) 250 mls @ 166.7 mls/hr IVPB Q24H [facility] Last Admin: 11/20/16 10:26 Dose: 166.7 mls/hr Lactulose (Enulose) 20 gm PO [facility] Last Admin: 11/19/16 21:37 Dose: 20 gm Ondansetron HCl (Zofran Inj) 4 mg IVP Q6 PRN PRN Reason: Nausea/Vomiting Last Admin: 11/15/16 09:58 Dose: 4 mg Propranolol HCl (Inderal) 10 mg PO BID [facility] Last Admin: 11/20/16 10:35 Dose: Not Given Spironolactone (Aldactone) 25 mg PO DAILY [facility] Last Admin: 11/18/16 10:17 Dose: 25 mg Thiamine HCl (Vitamin B1 Tab) 100 mg PO DAILY [facility] Last Admin: 11/20/16 10:25 Dose: 100 mg - Labs Labs: 11/20/16 09:38 11/20/16 09:38 PT 16.0 SECONDS (9.7-12.2) H 11/17/16 08:09 INR 1.4 11/17/16 08:09 APTT 46 SECONDS (21-34) H D 11/17/16 08:09 Assessment and Plan (1) Jaundice Status: Acute (2) Liver failure Status: Chronic (3) CHF (congestive heart failure) Status: Acute (4) Coagulopathy Status: Acute (5) Leukocytosis Status: Acute (6) Pleural effusion Status: Acute
--- NOTE | 2016-11-20 18:53 | CP.PCM.PN ---
Subjective - Date & Time of Evaluation Date of Evaluation: 11/20/16 Time of Evaluation: 18:52 - Subjective Subjective: Patient's white count was elevated yesterday, so I started antibiotic yesterday. Currently patient is feeling okay, complaining of abdominal pain, denies any chest pain, no nausea noted, cough minimally noted, leg swelling 1+ noted Objective - Vital Signs/Intake and Output Vital Signs (last 24 hours): Temp Pulse Resp BP Pulse Ox 98.1 F 99 H 20 105/67 98 11/20/16 15:32 11/20/16 15:32 11/20/16 15:32 11/20/16 15:32 11/20/16 15:32 Vital signs reviewed No neck vein distention noted Chest good air entry bilaterally, no wheezing or rales noted CVS regular heart sound, no murmur noted Abdomen soft, nontender. 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 3, no functional neurological deficit Intake and Output: 11/20/16 11/20/16 06:59 18:59 Intake Total 100 550 Balance 100 550 - Medications Medications: Current Medications Albuterol/Ipratropium (Duoneb 3 Mg/0.5 Mg (3 Ml) Ud) 3 ml INH RQ12 [facility] Last Admin: 11/20/16 08:51 Dose: Not Given Chlordiazepoxide (Librium) 5 mg PO DAILY [facility] Last Admin: 11/20/16 10:26 Dose: 5 mg Fluticasone Propionate (Flonase) 1 spr NS DAILY [facility] Last Admin: 11/20/16 10:35 Dose: Not Given Folic Acid (Folic Acid) 1 mg PO DAILY [facility] Last Admin: 11/20/16 10:25 Dose: 1 mg Furosemide (Lasix) 20 mg PO DAILY [facility] Last Admin: 11/18/16 10:18 Dose: 20 mg Gabapentin (Neurontin) 300 mg PO TID [facility] Last Admin: 11/20/16 17:40 Dose: 300 mg Hydromorphone HCl (Dilaudid) 0.5 mg IVP Q4H PRN PRN Reason: Pain, moderate (4-7) Last Admin: 11/20/16 14:50 Dose: 0.5 mg Imipenem/Cilastatin Sodium 500 (mg/ Sodium Chloride) 100 mls @ 100 mls/hr IVPB Q6H [facility] Last Admin: 11/20/16 14:15 Dose: 100 mls/hr Vancomycin HCl 1 gm/ Sodium (Chloride) 250 mls @ 166.7 mls/hr IVPB Q24H [facility] Last Admin: 11/20/16 10:26 Dose: 166.7 mls/hr Lactulose (Enulose) 20 gm PO HS [facility] Last Admin: 11/19/16 21:37 Dose: 20 gm Ondansetron HCl (Zofran Inj) 4 mg IVP Q6 PRN PRN Reason: Nausea/Vomiting Last Admin: 11/15/16 09:58 Dose: 4 mg Propranolol HCl (Inderal) 10 mg PO BID [facility] Last Admin: 11/20/16 17:40 Dose: 10 mg Spironolactone (Aldactone) 25 mg PO DAILY [facility] Last Admin: 11/18/16 10:17 Dose: 25 mg Thiamine HCl (Vitamin B1 Tab) 100 mg PO DAILY [facility] Last Admin: 11/20/16 10:25 Dose: 100 mg - Labs Labs: 11/20/16 09:38 11/20/16 09:38 PT 16.0 SECONDS (9.7-12.2) H 11/17/16 08:09 INR 1.4 11/17/16 08:09 APTT 46 SECONDS (21-34) H D 11/17/16 08:09 Assessment and Plan (1) Liver failure Assessment & Plan: Patient with liver disease. I'll chronic liver disease chronic. Currently having elevated white count. Unclear etiology. Restarted the antibiotic. Follow-up the echo cardiac exam, Ceretec scan advised Status: Chronic (2) CHF (congestive heart failure) Status: Acute (3) Coagulopathy Status: Acute (4) Hepatic encephalopathy Status: Acute
[2016-11-21] MEDS: HYDROmorphone 0.5 mg/0.5 ml ISec IVP PRN ×5 (04:43→22:08)
[2016-11-21 07:03] LABS: BASO # 0.5 K/uL (0.0-0.2); BASO % 2.3 % (0.0-2.0); EOS # 0.2 K/uL (0.0-0.7); EOS % 0.8 % (0.0-4.0); HEMATOCRIT 25.8 % (34.0-47.0); LYMPH % 13.8 % (20.0-40.0); MEAN CELL VOLUME 103.3 fL (81.0-99.0); MEAN CORPUSCULAR HEMOGLOBIN 34.1 pg (27.0-31.0); MEAN PLATELET VOLUME 9.1 fL (7.2-11.7); MONO # 0.6 K/uL (0.0-0.8); MONO % 2.7 % (0.0-10.0); NRBC % 0.1 % (0.0-2.0); RED CELL DISTRIBUTION WIDTH 16.1 % (11.5-14.5); WHITE BLOOD COUNT 22.1 K/uL (4.8-10.8)
[2016-11-21] MEDS: Albuterol-Ipratrop 3 mg / 0.5 (3 ml) UD INH SCH ×2 (08:54→19:46)
[2016-11-21] MEDS: Fluticasone Nasal 50 mcg/Spray NS SCH (09:50)
--- NOTE | 2016-11-21 11:31 | CARD ---
APPROVED REPORT EXAM: Two-dimensional and M-mode echocardiogram with Doppler and color Doppler. Other Information Quality : GoodRhythm : NSR INDICATION Congestive Heart Failure endocarditis RISK FACTORS Hypertension M-Mode DIMENSIONS RVDd1.62 (2.1-3.2cm)Left Atrium (MM)4.31 (2.5-4.0cm) IVSd1.00 (0.7-1.1cm)Aortic Root3.17 (2.2-3.7cm) LVDd4.87 (4.0-5.6cm)Aortic Cusp Exc.2.21 (1.5-2.0cm) PWd1.51 (0.7-1.1cm)FS (%) 31 % LVDs3.36 (2.0-3.8cm)LVEF (%)59 (>50%) Aortic Valve AoV Peak Dfzuwumx291.1cm/Uriel Peak GR.16mmHg Mitral Valve MV E Ytmlwbuz38.5cm/sMV A Lkigmwhk17.8cm/sE/A ratio1.3 TDI E/Lateral E'0.0E/Medial E'0.0 Tricuspid Valve TR Peak Wspbvgtm149gl/sTR Peak Gr.[id number] <Conclusion> normal size lv,ra & rv. la is mildly dilated. normal lv wall motion,thickness,systolic & diastolic funciton with lvef of 60-65%. normal aortic,mitral,tv & pv. mild mr & tr with calculated pulmonary systolic pressures of 40 mm of hg,c/w mild pulmnary hypertension. normal size aortic root. no pericardial effusion.
--- NOTE | 2016-11-21 18:52 | CP.PCM.PN ---
Subjective - Date & Time of Evaluation Date of Evaluation: 11/21/16 Time of Evaluation: 18:50 - Subjective Subjective: Spoke to the patient is morning. Patient is still having some palpitation, right upper quadrant pain noted. Echo was done yesterday. Echocardiogram showing no evidence of any endocarditis. Patient denies any nausea vomiting. Appetite is still poor, poor intake noted. Bowel movements are normal. No leg swelling. Objective - Vital Signs/Intake and Output Vital Signs (last 24 hours): Temp Pulse Resp BP Pulse Ox 98 F 85 20 107/69 96 11/21/16 08:05 11/21/16 08:05 11/21/16 08:05 11/21/16 08:05 11/21/16 08:05 On examination: HEENT PERRLA, neck supple No thyromegaly was noted and no cervical adenopathy noted Chest bilateral good air entry, no wheezing or rales noted CVS regular heart sound, no murmur Abdomen soft and no organomegaly Extremities no pedal edema, no leg swelling, pedal pulses are good. 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 no functional neurological deficit Intake and Output: 11/21/16 11/21/16 06:59 18:59 Intake Total 650 Balance 650 - Medications Medications: Current Medications Albuterol/Ipratropium (Duoneb 3 Mg/0.5 Mg (3 Ml) Ud) 3 ml INH RQ12 [facility] Last Admin: 11/21/16 08:54 Dose: 3 ml Chlordiazepoxide (Librium) 5 mg PO QOD6 [facility] Fluticasone Propionate (Flonase) 1 spr NS DAILY [facility] Last Admin: 11/21/16 09:50 Dose: Not Given Folic Acid (Folic Acid) 1 mg PO DAILY [facility] Last Admin: 11/21/16 09:44 Dose: 1 mg Furosemide (Lasix) 20 mg PO DAILY [facility] Last Admin: 11/18/16 10:18 Dose: 20 mg Gabapentin (Neurontin) 300 mg PO TID [facility] Last Admin: 11/21/16 17:38 Dose: 300 mg Hydromorphone HCl (Dilaudid) 0.5 mg IVP Q4H PRN PRN Reason: Pain, moderate (4-7) Last Admin: 11/21/16 17:38 Dose: 0.5 mg Imipenem/Cilastatin Sodium 500 (mg/ Sodium Chloride) 100 mls @ 100 mls/hr IVPB Q6H [facility] Last Admin: 11/21/16 13:57 Dose: 100 mls/hr Vancomycin HCl 1 gm/ Sodium (Chloride) 250 mls @ 166.7 mls/hr IVPB Q24H [facility] Last Admin: 11/21/16 09:47 Dose: 166.7 mls/hr Lactulose (Enulose) 20 gm PO HS [facility] Last Admin: 11/20/16 22:03 Dose: 20 gm Propranolol HCl (Inderal) 10 mg PO BID [facility] Last Admin: 11/21/16 17:38 Dose: 10 mg Spironolactone (Aldactone) 25 mg PO DAILY [facility] Last Admin: 11/18/16 10:17 Dose: 25 mg Thiamine HCl (Vitamin B1 Tab) 100 mg PO DAILY [facility] Last Admin: 11/21/16 09:44 Dose: 100 mg - Labs Labs: 11/21/16 06:49 11/20/16 09:38 PT 16.0 SECONDS (9.7-12.2) H 11/17/16 08:09 INR 1.4 11/17/16 08:09 APTT 46 SECONDS (21-34) H D 11/17/16 08:09 Assessment and Plan (1) Liver failure Assessment & Plan: Patient with chronic liver disease. Elevated WBC. Nonspecific. Even though no fever noted, elevated WBC one-day responding to IV antibiotic at this time. Ceretec scan is pending. Continue the current treatment. Lupus and CAROLYN workup are negative. Continue the current treatment and will follow the patient Status: Chronic (2) CHF (congestive heart failure) Status: Acute (3) Coagulopathy Status: Acute (4) Hepatic encephalopathy Status: Acute
[2016-11-22] MEDS: HYDROmorphone 0.5 mg/0.5 ml ISec IVP PRN ×5 (02:22→19:41)
[2016-11-22] MEDS: Albuterol-Ipratrop 3 mg / 0.5 (3 ml) UD INH SCH ×2 (07:14→19:10)
[2016-11-22 08:07] LABS: INR 1.4
--- NOTE | 2016-11-22 08:17 | CP.PCM.PN ---
Subjective - Date & Time of Evaluation Date of Evaluation: 11/22/16 Time of Evaluation: 08:18 - Subjective Subjective: Patient had an episode of hemoptysis last night. Today patient is feeling better. Patient is scheduled to have the second part of the sac scan today. No chest pain. Appetite is okay. No nausea vomiting. Leg swelling negative Objective - Vital Signs/Intake and Output Vital Signs (last 24 hours): Temp Pulse Resp BP Pulse Ox 98.7 F 92 H 18 110/70 95 11/22/16 00:00 11/22/16 00:00 11/22/16 00:00 11/22/16 00:00 11/22/16 00:00 On examination: HEENT PERRLA, neck supple No thyromegaly was noted and no cervical adenopathy noted Chest bilateral good air entry, no wheezing or rales noted CVS regular heart sound, no murmur Abdomen soft and no organomegaly Extremities no pedal edema, no leg swelling, pedal pulses are good. 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 no functional neurological deficit - Medications Medications: Current Medications Albuterol/Ipratropium (Duoneb 3 Mg/0.5 Mg (3 Ml) Ud) 3 ml INH RQ12 [facility] Last Admin: 11/22/16 07:14 Dose: 3 ml Chlordiazepoxide (Librium) 5 mg PO QOD6 [facility] Fluticasone Propionate (Flonase) 1 spr NS DAILY [facility] Last Admin: 11/21/16 09:50 Dose: Not Given Folic Acid (Folic Acid) 1 mg PO DAILY [facility] Last Admin: 11/21/16 09:44 Dose: 1 mg Furosemide (Lasix) 20 mg PO DAILY [facility] Last Admin: 11/18/16 10:18 Dose: 20 mg Gabapentin (Neurontin) 300 mg PO TID [facility] Last Admin: 11/21/16 17:38 Dose: 300 mg Hydromorphone HCl (Dilaudid) 0.5 mg IVP Q4H PRN PRN Reason: Pain, moderate (4-7) Last Admin: 11/22/16 06:21 Dose: 0.5 mg Imipenem/Cilastatin Sodium 500 (mg/ Sodium Chloride) 100 mls @ 100 mls/hr IVPB Q6H [facility] Last Admin: 11/22/16 01:22 Dose: 100 mls/hr Vancomycin HCl 1 gm/ Sodium (Chloride) 250 mls @ 166.7 mls/hr IVPB Q24H [facility] Last Admin: 11/21/16 09:47 Dose: 166.7 mls/hr Lactulose (Enulose) 20 gm PO HS [facility] Last Admin: 11/21/16 21:49 Dose: 20 gm Propranolol HCl (Inderal) 10 mg PO BID [facility] Last Admin: 11/21/16 17:38 Dose: 10 mg Spironolactone (Aldactone) 25 mg PO DAILY [facility] Last Admin: 11/18/16 10:17 Dose: 25 mg Thiamine HCl (Vitamin B1 Tab) 100 mg PO DAILY [facility] Last Admin: 11/21/16 09:44 Dose: 100 mg - Labs Labs: 11/21/16 06:49 11/20/16 09:38 PT 16.0 SECONDS (9.7-12.2) H 11/22/16 07:49 INR 1.4 11/22/16 07:49 APTT 42 SECONDS (21-34) H 11/22/16 07:49 Assessment and Plan (1) Liver failure Assessment & Plan: Patient with chronic liver failure. Pneumonia. ESBL Escherichia coli. Currently antibiotic again. White count is improving. Episode of hemoptysis. Will check for the PT/PTT CBC today. Follow the static scan and will follow the patient. If the WBC improves patient can be discharged, but will wait for the results of the thyroid scan Status: Chronic (2) CHF (congestive heart failure) Status: Acute (3) Coagulopathy Status: Acute (4) Hepatic encephalopathy Status: Acute
--- NOTE | 2016-11-22 10:09 | RAD ---
HISTORY: coughed up blood COMPARISON: 11/19/2016 FINDINGS: LUNGS: No active pulmonary disease. PLEURA: No significant pleural effusion identified, no pneumothorax apparent. CARDIOVASCULAR: Normal heart size. No congestive change. Right PICC catheter unchanged, terminating in the region of the cavoatrial junction. OSSEOUS STRUCTURES: No significant abnormalities. VISUALIZED UPPER ABDOMEN: Normal. OTHER FINDINGS: None. IMPRESSION: No active disease.
--- NOTE | 2016-11-22 10:55 | NM ---
PROCEDURE: Ceretec labeled white blood cell study HISTORY: leukocytosis ? COMPARISON: 11/12/2016. CT abdomen and pelvis. Summary of findings on the comparison examination: Hepatosplenomegaly. TECHNIQUE: 18.9 mCi technetium 99 M Ceretec labeled white blood cells administered intravenously. Imaging performed per protocol at 2 and 20 hours. FINDINGS: Intense uptake in the spleen without focal abnormality. The spleen is enlarged as is the liver consistent with findings on recent CT scan. Mild increased uptake in the lungs common nonspecific. Likely normal variant, comparison chest x-ray 11/22/2016 unremarkable IMPRESSION: No significant or acute findings to account for/ related to the clinical presentation.Additional benign and/or incidental findings described above.
[2016-11-22] MEDS: Fluticasone Nasal 50 mcg/Spray NS SCH (11:00)
[2016-11-22 12:02] LABS: CHLORIDE 98 mmol/L (98-107); SODIUM 136 mmol/L (132-148)
[2016-11-22 12:04] LABS: BILIRUBIN,TOTAL 3.1 mg/dL (0.2-1.3); CARBON DIOXIDE 29 mmol/L (22-30); GFR AFRICAN-AMERICAN > 60
[2016-11-22 12:05] LABS: ALB/GLOB RATIO 0.8 (1.0-2.1); ALKALINE PHOSPHATASE 133 U/L (38-126); ALT/SGPT 34 U/L (9-52); AST/SGOT 126 U/L (14-36); BASO # 0.1 K/uL (0.0-0.2); BASO % 0.3 % (0.0-2.0); BLOOD UREA NITROGEN 5 mg/dL (7-17); CALCIUM 8.5 mg/dl (8.6-10.4); EOS # 0.2 K/uL (0.0-0.7); EOS % 0.7 % (0.0-4.0); GLUCOSE,RANDOM 85 mg/dL (65-105); HEMATOCRIT 25.6 % (34.0-47.0); LYMPH # 2.9 K/uL (1.0-4.3); LYMPH % 13.6 % (20.0-40.0); MEAN CELL VOLUME 102.6 fL (81.0-99.0); MEAN CORPUSCULAR HEMOGLOBIN 34.1 pg (27.0-31.0); MEAN CORPUSCULAR HGB CONC 33.2 g/dL (33.0-37.0); MEAN PLATELET VOLUME 9.2 fL (7.2-11.7); MONO # 0.8 K/uL (0.0-0.8); MONO % 3.9 % (0.0-10.0); NRBC % 0.2 % (0.0-2.0); RED CELL DISTRIBUTION WIDTH 16.4 % (11.5-14.5); WHITE BLOOD COUNT 21.4 K/uL (4.8-10.8)
[2016-11-23] MEDS: HYDROmorphone 0.5 mg/0.5 ml ISec IVP PRN ×6 (05:01→21:22)
[2016-11-23] MEDS: Fluticasone Nasal 50 mcg/Spray NS SCH (09:11)
[2016-11-23] MEDS: Albuterol-Ipratrop 3 mg / 0.5 (3 ml) UD INH SCH ×2 (09:15→20:15)
--- NOTE | 2016-11-23 18:06 | CP.PCM.PN ---
Subjective - Date & Time of Evaluation Date of Evaluation: 11/23/16 Time of Evaluation: 10:00 - Subjective Subjective: slow progress cont rx as per dr kumar Objective - Vital Signs/Intake and Output Vital Signs (last 24 hours): Temp Pulse Resp BP Pulse Ox 98.2 F 85 20 109/69 96 11/23/16 15:55 11/23/16 15:55 11/23/16 15:55 11/23/16 15:55 11/23/16 15:55 - Medications Medications: Current Medications Albuterol/Ipratropium (Duoneb 3 Mg/0.5 Mg (3 Ml) Ud) 3 ml INH RQ12 [facility] Last Admin: 11/23/16 09:15 Dose: 3 ml Chlordiazepoxide (Librium) 5 mg PO QOD6 [facility] Last Admin: 11/23/16 17:31 Dose: 5 mg Fluticasone Propionate (Flonase) 1 spr NS DAILY [facility] Last Admin: 11/23/16 09:11 Dose: Not Given Folic Acid (Folic Acid) 1 mg PO DAILY [facility] Last Admin: 11/23/16 09:10 Dose: 1 mg Furosemide (Lasix) 20 mg PO DAILY [facility] Last Admin: 11/18/16 10:18 Dose: 20 mg Gabapentin (Neurontin) 300 mg PO TID [facility] Last Admin: 11/23/16 17:21 Dose: 300 mg Hydromorphone HCl (Dilaudid) 0.5 mg IVP Q4H PRN PRN Reason: Pain, moderate (4-7) Last Admin: 11/23/16 17:21 Dose: 0.5 mg Imipenem/Cilastatin Sodium 500 (mg/ Sodium Chloride) 100 mls @ 100 mls/hr IVPB Q6H [facility] Last Admin: 11/23/16 13:21 Dose: 100 mls/hr Vancomycin HCl 1 gm/ Sodium (Chloride) 250 mls @ 166.7 mls/hr IVPB Q24H [facility] Last Admin: 11/23/16 09:12 Dose: 166.7 mls/hr Lactulose (Enulose) 20 gm PO BID [facility] Last Admin: 11/23/16 17:20 Dose: 20 gm Propranolol HCl (Inderal) 10 mg PO BID [facility] Last Admin: 11/23/16 17:21 Dose: 10 mg Spironolactone (Aldactone) 25 mg PO DAILY [facility] Last Admin: 11/18/16 10:17 Dose: 25 mg Thiamine HCl (Vitamin B1 Tab) 100 mg PO DAILY [facility] Last Admin: 11/23/16 09:10 Dose: 100 mg - Labs Labs: 11/22/16 11:47 11/22/16 11:47 PT 16.0 SECONDS (9.7-12.2) H 11/22/16 07:49 INR 1.4 11/22/16 07:49 APTT 42 SECONDS (21-34) H 11/22/16 07:49 Assessment and Plan (1) Jaundice Status: Acute (2) Liver failure Status: Chronic (3) CHF (congestive heart failure) Status: Acute (4) Coagulopathy Status: Acute (5) Leukocytosis Status: Acute (6) Pleural effusion Status: Acute
[2016-11-24] MEDS: HYDROmorphone 0.5 mg/0.5 ml ISec IVP PRN ×5 (01:46→19:14)
[2016-11-24] MEDS: Albuterol-Ipratrop 3 mg / 0.5 (3 ml) UD INH SCH ×2 (07:21→19:28)
[2016-11-24 07:38] LABS: BASO # 0.2 K/uL (0.0-0.2); EOS # 0.2 K/uL (0.0-0.7); EOS % 0.7 % (0.0-4.0); HEMATOCRIT 26.1 % (34.0-47.0); LYMPH # 2.8 K/uL (1.0-4.3); LYMPH % 12.4 % (20.0-40.0); MEAN CELL VOLUME 102.9 fL (81.0-99.0); MEAN CORPUSCULAR HEMOGLOBIN 34.4 pg (27.0-31.0); MEAN CORPUSCULAR HGB CONC 33.5 g/dL (33.0-37.0); MEAN PLATELET VOLUME 9.1 fL (7.2-11.7); MONO # 0.8 K/uL (0.0-0.8); MONO % 3.4 % (0.0-10.0); RED CELL DISTRIBUTION WIDTH 16.2 % (11.5-14.5); WHITE BLOOD COUNT 22.6 K/uL (4.8-10.8)
[2016-11-24 07:42] LABS: CHLORIDE 99 mmol/L (98-107); SODIUM 135 mmol/L (132-148)
[2016-11-24 07:43] LABS: POTASSIUM 4.1 mmol/L (3.6-5.2)
[2016-11-24 07:45] LABS: ALB/GLOB RATIO 0.8 (1.0-2.1); ALKALINE PHOSPHATASE 128 U/L (38-126); ALT/SGPT 32 U/L (9-52); AST/SGOT 132 U/L (14-36); BILIRUBIN,TOTAL 2.9 mg/dL (0.2-1.3); BLOOD UREA NITROGEN 6 mg/dL (7-17); CALCIUM 8.5 mg/dl (8.6-10.4); CARBON DIOXIDE 27 mmol/L (22-30); GFR AFRICAN-AMERICAN > 60; GLUCOSE,RANDOM 99 mg/dL (65-105)
--- NOTE | 2016-11-24 14:39 | CP.PCM.PN ---
Subjective - Date & Time of Evaluation Date of Evaluation: 11/24/16 Time of Evaluation: 09:00 - Subjective Subjective: alert6 afeb nad Objective - Vital Signs/Intake and Output Vital Signs (last 24 hours): Temp Pulse Resp BP Pulse Ox 98.0 F 83 20 90/59 L 95 11/24/16 07:59 11/24/16 07:59 11/24/16 07:59 11/24/16 07:59 11/24/16 07:59 Intake and Output: 11/24/16 11/24/16 06:59 18:59 Intake Total 400 Output Total 500 Balance -100 - Medications Medications: Current Medications Albuterol/Ipratropium (Duoneb 3 Mg/0.5 Mg (3 Ml) Ud) 3 ml INH RQ12 [facility] Last Admin: 11/24/16 07:21 Dose: 3 ml Chlordiazepoxide (Librium) 5 mg PO QOD6 [facility] Last Admin: 11/23/16 17:31 Dose: 5 mg Fluticasone Propionate (Flonase) 1 spr NS DAILY [facility] Last Admin: 11/23/16 09:11 Dose: Not Given Folic Acid (Folic Acid) 1 mg PO DAILY [facility] Last Admin: 11/24/16 10:24 Dose: 1 mg Furosemide (Lasix) 20 mg PO DAILY [facility] Last Admin: 11/18/16 10:18 Dose: 20 mg Gabapentin (Neurontin) 300 mg PO TID [facility] Last Admin: 11/24/16 10:24 Dose: 300 mg Hydromorphone HCl (Dilaudid) 0.5 mg IVP Q4H PRN PRN Reason: Pain, moderate (4-7) Last Admin: 11/24/16 10:24 Dose: 0.5 mg Imipenem/Cilastatin Sodium 500 (mg/ Sodium Chloride) 100 mls @ 100 mls/hr IVPB Q6H [facility] Last Admin: 11/24/16 08:13 Dose: 100 mls/hr Vancomycin HCl 1 gm/ Sodium (Chloride) 250 mls @ 166.7 mls/hr IVPB Q24H [facility] Last Admin: 11/24/16 10:24 Dose: 166.7 mls/hr Lactulose (Enulose) 20 gm PO BID [facility] Last Admin: 11/24/16 10:24 Dose: 20 gm Propranolol HCl (Inderal) 10 mg PO BID [facility] Last Admin: 11/24/16 10:24 Dose: 10 mg Spironolactone (Aldactone) 25 mg PO DAILY [facility] Last Admin: 11/18/16 10:17 Dose: 25 mg Thiamine HCl (Vitamin B1 Tab) 100 mg PO DAILY [facility] Last Admin: 11/24/16 10:24 Dose: 100 mg - Labs Labs: 11/24/16 07:25 11/24/16 07:25 PT 16.0 SECONDS (9.7-12.2) H 11/22/16 07:49 INR 1.4 11/22/16 07:49 APTT 42 SECONDS (21-34) H 11/22/16 07:49 - Constitutional Appears: Chronically Ill - Head Exam Head Exam: NORMOCEPHALIC - Eye Exam Eye Exam: Scleral icterus - ENT Exam ENT Exam: Mucous Membranes Dry - Neck Exam Neck Exam: absent: Lymphadenopathy - Respiratory Exam Respiratory Exam: Decreased Breath Sounds - Cardiovascular Exam Cardiovascular Exam: REGULAR RHYTHM - GI/Abdominal Exam GI & Abdominal Exam: Distended, Soft - Rectal Exam Rectal Exam: Deferred Assessment and Plan (1) Jaundice Status: Acute (2) Liver failure Status: Chronic (3) CHF (congestive heart failure) Status: Acute (4) Coagulopathy Status: Acute (5) Leukocytosis Status: Acute (6) Pleural effusion Status: Acute
[2016-11-25] MEDS: HYDROmorphone 0.5 mg/0.5 ml ISec IVP PRN ×6 (00:04→21:43)
[2016-11-25] MEDS: Albuterol-Ipratrop 3 mg / 0.5 (3 ml) UD INH SCH ×2 (09:07→20:16)
[2016-11-25 09:19] LABS: BASO # 0.1 K/uL (0.0-0.2); BASO % 0.6 % (0.0-2.0); EOS # 0.1 K/uL (0.0-0.7); EOS % 0.5 % (0.0-4.0); HEMATOCRIT 26.4 % (34.0-47.0); LYMPH # 2.7 K/uL (1.0-4.3); LYMPH % 11.4 % (20.0-40.0); MEAN CORPUSCULAR HEMOGLOBIN 34.1 pg (27.0-31.0); MEAN CORPUSCULAR HGB CONC 33.1 g/dL (33.0-37.0); MEAN PLATELET VOLUME 9.5 fL (7.2-11.7); MONO # 0.6 K/uL (0.0-0.8); MONO % 2.7 % (0.0-10.0); NRBC % 0.1 % (0.0-2.0); RED CELL DISTRIBUTION WIDTH 16.5 % (11.5-14.5); WHITE BLOOD COUNT 23.3 K/uL (4.8-10.8)
[2016-11-25 09:29] LABS: CHLORIDE 98 mmol/L (98-107)
[2016-11-25 09:30] LABS: POTASSIUM 3.7 mmol/L (3.6-5.2); SODIUM 136 mmol/L (132-148)
[2016-11-25 09:32] LABS: AST/SGOT 104 U/L (14-36); BILIRUBIN,TOTAL 2.8 mg/dL (0.2-1.3); BLOOD UREA NITROGEN 11 mg/dL (7-17); CARBON DIOXIDE 26 mmol/L (22-30); GFR AFRICAN-AMERICAN > 60; TOTAL PROTEIN 6.9 g/dL (6.3-8.3)
[2016-11-25 09:33] LABS: ALB/GLOB RATIO 0.9 (1.0-2.1); ALKALINE PHOSPHATASE 129 U/L (38-126); ALT/SGPT 30 U/L (9-52); CALCIUM 8.5 mg/dl (8.6-10.4); GLUCOSE,RANDOM 168 mg/dL (65-105)
[2016-11-25] MEDS: Fluticasone Nasal 50 mcg/Spray NS SCH (10:10)
--- NOTE | 2016-11-25 15:34 | CP.PCM.PN ---
Subjective - Date & Time of Evaluation Date of Evaluation: 11/23/16 Time of Evaluation: 15:33 - Subjective Subjective: Patient is having episodes of nausea. Abdominal pain. Currently doing well otherwise. Poor appetite. Not eating well. White count still elevated Objective - Vital Signs/Intake and Output Vital Signs (last 24 hours): Temp Pulse Resp BP Pulse Ox 98.5 F 90 20 98/55 L 95 11/25/16 07:00 11/25/16 07:00 11/25/16 07:00 11/25/16 10:11 11/25/16 07:00 Intake and Output: On examination: HEENT PERRLA, neck supple No thyromegaly was noted and no cervical adenopathy noted Chest bilateral good air entry, no wheezing or rales noted CVS regular heart sound, no murmur Abdomen soft and no organomegaly Extremities no pedal edema, no leg swelling, pedal pulses are good. 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 no functional neurological deficit - Medications Medications: Current Medications Albuterol/Ipratropium (Duoneb 3 Mg/0.5 Mg (3 Ml) Ud) 3 ml INH RQ12 [facility] Last Admin: 11/25/16 09:07 Dose: 3 ml Chlordiazepoxide (Librium) 5 mg PO QOD6 [facility] Last Admin: 11/23/16 17:31 Dose: 5 mg Fluticasone Propionate (Flonase) 1 spr NS DAILY [facility] Last Admin: 11/25/16 10:10 Dose: Not Given Folic Acid (Folic Acid) 1 mg PO DAILY [facility] Last Admin: 11/25/16 10:09 Dose: 1 mg Furosemide (Lasix) 20 mg PO DAILY [facility] Last Admin: 11/25/16 10:11 Dose: Not Given Gabapentin (Neurontin) 300 mg PO TID [facility] Last Admin: 11/25/16 13:30 Dose: 300 mg Hydromorphone HCl (Dilaudid) 0.5 mg IVP Q4H PRN PRN Reason: Pain, moderate (4-7) Last Admin: 11/25/16 12:47 Dose: 0.5 mg Tigecycline 50 mg/ Sodium (Chloride) 100 mls @ 100 mls/hr IVPB Q12H [facility] Last Admin: 11/25/16 03:33 Dose: 100 mls/hr Lactulose (Enulose) 20 gm PO BID [facility] Last Admin: 11/25/16 10:14 Dose: 20 gm Propranolol HCl (Inderal) 10 mg PO BID [facility] Last Admin: 11/25/16 10:11 Dose: Not Given Spironolactone (Aldactone) 25 mg PO DAILY [facility] Last Admin: 11/25/16 10:11 Dose: Not Given Thiamine HCl (Vitamin B1 Tab) 100 mg PO DAILY [facility] Last Admin: 11/25/16 10:09 Dose: 100 mg - Labs Labs: 11/25/16 09:15 11/25/16 09:15 PT 16.0 SECONDS (9.7-12.2) H 11/22/16 07:49 INR 1.4 11/22/16 07:49 APTT 42 SECONDS (21-34) H 11/22/16 07:49 Assessment and Plan (1) Liver failure Assessment & Plan: chronic liver disease, alcoholism. Elevated WBC, unclear etiology. Will follow the [facility] [place]. Spoke to the ID Status: Chronic (2) CHF (congestive heart failure) Status: Acute (3) Coagulopathy Status: Acute (4) Hepatic encephalopathy Status: Acute
--- NOTE | 2016-11-25 15:35 | CP.PCM.PN ---
Subjective - Date & Time of Evaluation Date of Evaluation: 11/24/16 Time of Evaluation: 15:34 - Subjective Subjective: Complaining of nausea, episodes of vomiting once. No chest pain. Abdominal pain noted. Leg swelling 1+ Objective - Vital Signs/Intake and Output Vital Signs (last 24 hours): Temp Pulse Resp BP Pulse Ox 98.5 F 90 20 98/55 L 95 11/25/16 07:00 11/25/16 07:00 11/25/16 07:00 11/25/16 10:11 11/25/16 07:00 Intake and Output: On examination: HEENT PERRLA, neck supple No thyromegaly was noted and no cervical adenopathy noted Chest bilateral good air entry, no wheezing or rales noted CVS regular heart sound, no murmur Abdomen soft and no organomegaly 1+ pedal edema MATERIAL SPECIALIST alert awake oriented x3 no functional neurological deficit - Medications Medications: Current Medications Albuterol/Ipratropium (Duoneb 3 Mg/0.5 Mg (3 Ml) Ud) 3 ml INH RQ12 [facility] Last Admin: 11/25/16 09:07 Dose: 3 ml Chlordiazepoxide (Librium) 5 mg PO QOD6 [facility] Last Admin: 11/23/16 17:31 Dose: 5 mg Fluticasone Propionate (Flonase) 1 spr NS DAILY [facility] Last Admin: 11/25/16 10:10 Dose: Not Given Folic Acid (Folic Acid) 1 mg PO DAILY [facility] Last Admin: 11/25/16 10:09 Dose: 1 mg Furosemide (Lasix) 20 mg PO DAILY [facility] Last Admin: 11/25/16 10:11 Dose: Not Given Gabapentin (Neurontin) 300 mg PO TID [facility] Last Admin: 11/25/16 13:30 Dose: 300 mg Hydromorphone HCl (Dilaudid) 0.5 mg IVP Q4H PRN PRN Reason: Pain, moderate (4-7) Last Admin: 11/25/16 12:47 Dose: 0.5 mg Tigecycline 50 mg/ Sodium (Chloride) 100 mls @ 100 mls/hr IVPB Q12H [facility] Last Admin: 11/25/16 03:33 Dose: 100 mls/hr Lactulose (Enulose) 20 gm PO BID [facility] Last Admin: 11/25/16 10:14 Dose: 20 gm Propranolol HCl (Inderal) 10 mg PO BID [facility] Last Admin: 11/25/16 10:11 Dose: Not Given Spironolactone (Aldactone) 25 mg PO DAILY [facility] Last Admin: 11/25/16 10:11 Dose: Not Given Thiamine HCl (Vitamin B1 Tab) 100 mg PO DAILY [facility] Last Admin: 11/25/16 10:09 Dose: 100 mg - Labs Labs: 11/25/16 09:15 11/25/16 09:15 PT 16.0 SECONDS (9.7-12.2) H 11/22/16 07:49 INR 1.4 11/22/16 07:49 APTT 42 SECONDS (21-34) H 11/22/16 07:49 Assessment and Plan (1) Liver failure Assessment & Plan: patient still having episodes of WBC elevation. Unclear etiology. Doesn't look like infectious process. Possibly will get hematology evaluation. Currently on antibiotic. Spoke to the infectious disease. I also spoke to the patient in details Status: Chronic (2) CHF (congestive heart failure) Status: Acute (3) Coagulopathy Status: Acute (4) Hepatic encephalopathy Status: Acute
--- NOTE | 2016-11-25 15:36 | CP.PCM.PN ---
Subjective - Date & Time of Evaluation Date of Evaluation: 11/25/16 Time of Evaluation: 15:35 - Subjective Subjective: Currently having episodes of nausea. But eating well. Diarrhea noted. No abdominal pain. Right upper quadrant tenderness present. Objective - Vital Signs/Intake and Output Vital Signs (last 24 hours): Temp Pulse Resp BP Pulse Ox 98.5 F 90 20 98/55 L 95 11/25/16 07:00 11/25/16 07:00 11/25/16 07:00 11/25/16 10:11 11/25/16 07:00 Intake and Output: On examination: HEENT PERRLA, neck supple No thyromegaly was noted and no cervical adenopathy noted Chest bilateral good air entry, no wheezing or rales noted CVS regular heart sound, no murmur upper quadrant tenderness on the right gilbert edema 1+ bilaterally EXPLOSIVE ORDNANCE DISPOSAL SPECIALIST alert awake oriented x3 no functional neurological deficit - Medications Medications: Current Medications Albuterol/Ipratropium (Duoneb 3 Mg/0.5 Mg (3 Ml) Ud) 3 ml INH RQ12 [facility] Last Admin: 11/25/16 09:07 Dose: 3 ml Chlordiazepoxide (Librium) 5 mg PO QOD6 [facility] Last Admin: 11/23/16 17:31 Dose: 5 mg Fluticasone Propionate (Flonase) 1 spr NS DAILY [facility] Last Admin: 11/25/16 10:10 Dose: Not Given Folic Acid (Folic Acid) 1 mg PO DAILY [facility] Last Admin: 11/25/16 10:09 Dose: 1 mg Furosemide (Lasix) 20 mg PO DAILY [facility] Last Admin: 11/25/16 10:11 Dose: Not Given Gabapentin (Neurontin) 300 mg PO TID [facility] Last Admin: 11/25/16 13:30 Dose: 300 mg Hydromorphone HCl (Dilaudid) 0.5 mg IVP Q4H PRN PRN Reason: Pain, moderate (4-7) Last Admin: 11/25/16 12:47 Dose: 0.5 mg Tigecycline 50 mg/ Sodium (Chloride) 100 mls @ 100 mls/hr IVPB Q12H [facility] Last Admin: 11/25/16 03:33 Dose: 100 mls/hr Lactulose (Enulose) 20 gm PO BID [facility] Last Admin: 11/25/16 10:14 Dose: 20 gm Propranolol HCl (Inderal) 10 mg PO BID [facility] Last Admin: 11/25/16 10:11 Dose: Not Given Spironolactone (Aldactone) 25 mg PO DAILY [facility] Last Admin: 11/25/16 10:11 Dose: Not Given Thiamine HCl (Vitamin B1 Tab) 100 mg PO DAILY [facility] Last Admin: 11/25/16 10:09 Dose: 100 mg - Labs Labs: 11/25/16 09:15 11/25/16 09:15 PT 16.0 SECONDS (9.7-12.2) H 11/22/16 07:49 INR 1.4 11/22/16 07:49 APTT 42 SECONDS (21-34) H 11/22/16 07:49 Assessment and Plan (1) Liver failure Assessment & Plan: chronic liver disease, alcoholism. Poor prognosis. Elevated WBC unclear. Less likely infectious. , hematology evaluation Will follow the patient Status: Chronic (2) CHF (congestive heart failure) Status: Acute (3) Coagulopathy Status: Acute (4) Hepatic encephalopathy Status: Acute
--- NOTE | 2016-11-25 17:46 | CP.PCM.CON ---
History of Present Illness - History of Present Illness History of Present Illness: 31 year old female with a history of alcoholism complicated by liver disease, admitted with decompensated liver disease, persistent leukocytosis on antibiotics. The patient was seen by me in 09/2016 and had a negative BCR/ABL. Her leukocytosis was predominant neutrophilia and felt to be reactive. Review of her medical records shows she has had a persistent leukocytosis since August. The patient denies blood problems in the past. She denies abnormal bleeding and bruising. Past medical history liver disease, alcoholism Past surgical history: Family history: Denies hematologic and oncologic problems Social history: Denies tobacco, reports used to drink a fifth of rum daily, denies illicit drug use. Allergies: NKA Review of systems: All remaining review of systems including HEENT, cardiovascular, respiratory, gastrointestinal, genitourinary, musculoskeletal, dermatologic, neurologic, and psychiatric are negative unless mentioned in the HPI Past Patient History - Infectious Disease Hx of Infectious Diseases: None - Past Medical History & Family History Past Medical History?: Yes - Past Social History Smoking Status: Never Smoked - CARDIAC Hx Hypertension: Yes - PULMONARY Hx Asthma: Yes - NEUROLOGICAL Hx Neurological Disorder: No Hx Seizures: Yes - HEENT Hx HEENT Problems: No - RENAL Hx Chronic Kidney Disease: No - ENDOCRINE/METABOLIC Hx Endocrine Disorders: No - HEMATOLOGICAL/ONCOLOGICAL Hx Human Immunodeficiency Virus (HIV): No - INTEGUMENTARY Hx Eczema: Yes - MUSCULOSKELETAL/RHEUMATOLOGICAL Hx Falls: Yes Hx Herniated Disk: Yes (2 weeks ago) - GASTROINTESTINAL Hx Gastrointestinal Disorders: No Hx Liver Failure: (liver problems) Other/Comment: Liver rupture Jul 2016 - GENITOURINARY/GYNECOLOGICAL Hx Genitourinary Disorders: No - PSYCHIATRIC Hx Anxiety: Yes Hx Substance Use: No - SURGICAL HISTORY Hx Surgeries: Yes Hx Section: Yes Hx Orthopedic Surgery: Yes - ANESTHESIA Hx Anesthesia: Yes Hx Anesthesia Reactions: No Hx Malignant Hyperthermia: No Meds Allergies/Adverse Reactions: Allergies Allergy/AdvReac Type Severity Reaction Status Date / Time No Known Allergies Allergy Verified 10/13/16 04:36 - Medications Medications: Current Medications Albuterol/Ipratropium (Duoneb 3 Mg/0.5 Mg (3 Ml) Ud) 3 ml INH RQ12 [facility] Last Admin: 11/25/16 09:07 Dose: 3 ml Chlordiazepoxide (Librium) 5 mg PO QOD6 [facility] Last Admin: 11/25/16 17:15 Dose: 5 mg Fluticasone Propionate (Flonase) 1 spr NS DAILY [facility] Last Admin: 11/25/16 10:10 Dose: Not Given Folic Acid (Folic Acid) 1 mg PO DAILY [facility] Last Admin: 11/25/16 10:09 Dose: 1 mg Furosemide (Lasix) 20 mg PO DAILY [facility] Last Admin: 11/25/16 10:11 Dose: Not Given Gabapentin (Neurontin) 300 mg PO TID [facility] Last Admin: 11/25/16 17:15 Dose: 300 mg Hydromorphone HCl (Dilaudid) 0.5 mg IVP Q4H PRN PRN Reason: Pain, moderate (4-7) Last Admin: 11/25/16 17:15 Dose: 0.5 mg Tigecycline 50 mg/ Sodium (Chloride) 100 mls @ 100 mls/hr IVPB Q12H [facility] Last Admin: 11/25/16 15:52 Dose: 100 mls/hr Lactulose (Enulose) 20 gm PO BID [facility] Last Admin: 11/25/16 17:15 Dose: 20 gm Propranolol HCl (Inderal) 10 mg PO BID [facility] Last Admin: 11/25/16 17:15 Dose: 10 mg Spironolactone (Aldactone) 25 mg PO DAILY [facility] Last Admin: 11/25/16 10:11 Dose: Not Given Thiamine HCl (Vitamin B1 Tab) 100 mg PO DAILY [facility] Last Admin: 11/25/16 10:09 Dose: 100 mg Physical Exam - Head Exam Head Exam: ATRAUMATIC - Eye Exam Eye Exam: Normal appearance - ENT Exam ENT Exam: Mucous Membranes Dry - Respiratory Exam Respiratory Exam: NORMAL BREATHING PATTERN - Cardiovascular Exam Cardiovascular Exam: +S1, +S2 - GI/Abdominal Exam GI & Abdominal Exam: Normal Bowel Sounds - Extremities Exam Extremities exam: Positive for: pedal edema - Neurological Exam Neurological exam: Oriented x3 - Psychiatric Exam Psychiatric exam: Normal Affect, Normal Mood - Skin Skin Exam: Warm Results - Vital Signs Recent Vital Signs: Last Vital Signs Temp 98.4 F 11/25/16 16:16 Pulse 94 H 11/25/16 16:16 Resp 20 11/25/16 16:16 BP 106/56 L 11/25/16 16:16 Pulse Ox 98 11/25/16 16:16 - Labs Result Diagrams: 11/25/16 09:15 11/25/16 09:15 Labs: Laboratory Results - last 24 hr 11/25/16 11/25/16 11/25/16 09:15 09:15 09:15 WBC 23.3 H RBC 2.57 L Hgb 8.8 L Hct 26.4 L MCV 103.0 H MCH 34.1 H MCHC 33.1 RDW 16.5 H Plt Count 441 H MPV 9.5 Neut % (Auto) 84.8 H Lymph % (Auto) 11.4 L [place] % (Auto) 2.7 Eos % (Auto) 0.5 Baso % (Auto) 0.6 Neut # 19.8 H Lymph # 2.7 [place] # 0.6 Eos # 0.1 Baso # 0.1 Sodium 136 Potassium 3.7 Chloride 98 Carbon Dioxide 26 Anion Gap 16 BUN 11 Creatinine 0.4 L Est GFR ( Amer) > 60 Est GFR (Non-Af Amer) > 60 Random Glucose 168 H Calcium 8.5 L Total Bilirubin 2.8 H AST 104 H D ALT 30 Alkaline Phosphatase 129 H Ammonia 50 H D Total Protein 6.9 Albumin 3.2 L Globulin 3.7 Albumin/Globulin Ratio 0.9 L Procalcitonin 11/25/16 09:15 WBC RBC Hgb Hct MCV MCH MCHC RDW Plt Count MPV Neut % (Auto) Lymph % (Auto) [place] % (Auto) Eos % (Auto) Baso % (Auto) Neut # Lymph # [place] # Eos # Baso # Sodium Potassium Chloride Carbon Dioxide Anion Gap BUN Creatinine Est GFR ( Amer) Est GFR (Non-Af Amer) Random Glucose Calcium Total Bilirubin AST ALT Alkaline Phosphatase Ammonia Total Protein Albumin Globulin Albumin/Globulin Ratio Procalcitonin 0.10 L Assessment & Plan (1) Leukocytosis Assessment and Plan: predominant neutrophilia; likely reactive to underlying medical problems BCR/ABL negative in the past will send flow cytoemetery Sunday on peripheral blood to exclude clonality in her elevated WBC Status: Acute (2) Anemia Assessment and Plan: chronic disease prior work up showed normal iron, b12, folate stores Status: Acute (3) Coagulopathy Assessment and Plan: liver disease Thank you for this interesting consult. Status: Acute
[2016-11-26] MEDS: HYDROmorphone 0.5 mg/0.5 ml ISec IVP PRN ×6 (01:51→23:12)
[2016-11-26] MEDS: Albuterol-Ipratrop 3 mg / 0.5 (3 ml) UD INH SCH ×2 (09:06→20:07)
[2016-11-26] MEDS: Fluticasone Nasal 50 mcg/Spray NS SCH (11:10)
--- NOTE | 2016-11-26 14:40 | CP.PCM.PN ---
Subjective - Date & Time of Evaluation Date of Evaluation: 11/26/16 Time of Evaluation: 14:35 - Subjective Subjective: Hospitalist (Covering Dr. Carty) Patient seen and examined at bedside. Patient is awake, alert, oriented X3, pleasant lady. Patient reports RUQ tenderness, denies nausea, denies vomitting, reports she has loose stool but reports that is due to her Lactulose, denies dysuria, denies frequency, and denies swelling over lower extremities, and denies fever. No focal neuro deficits. Objective - Vital Signs/Intake and Output Vital Signs (last 24 hours): Temp Pulse Resp BP Pulse Ox 98.2 F 69 16 117/77 95 11/26/16 07:30 11/26/16 07:30 11/26/16 07:30 11/26/16 11:08 11/25/16 23:37 Intake and Output: 11/26/16 11/26/16 06:59 18:59 Intake Total 300 Balance 300 - Medications Medications: Current Medications Albuterol/Ipratropium (Duoneb 3 Mg/0.5 Mg (3 Ml) Ud) 3 ml INH RQ12 [facility] Last Admin: 11/26/16 09:06 Dose: 3 ml Chlordiazepoxide (Librium) 5 mg PO QOD6 [facility] Last Admin: 11/25/16 17:15 Dose: 5 mg Fluticasone Propionate (Flonase) 1 spr NS DAILY [facility] Last Admin: 11/26/16 11:10 Dose: Not Given Folic Acid (Folic Acid) 1 mg PO DAILY [facility] Last Admin: 11/26/16 11:08 Dose: 1 mg Furosemide (Lasix) 20 mg PO DAILY [facility] Last Admin: 11/26/16 11:08 Dose: 20 mg Gabapentin (Neurontin) 300 mg PO TID [facility] Last Admin: 11/26/16 14:16 Dose: 300 mg Hydromorphone HCl (Dilaudid) 0.5 mg IVP Q4H PRN PRN Reason: Pain, moderate (4-7) Last Admin: 11/26/16 11:10 Dose: 0.5 mg Tigecycline 50 mg/ Sodium (Chloride) 100 mls @ 100 mls/hr IVPB Q12H [facility] Last Admin: 11/26/16 14:16 Dose: 100 mls/hr Lactulose (Enulose) 20 gm PO BID [facility] Last Admin: 11/26/16 11:11 Dose: 20 gm Propranolol HCl (Inderal) 10 mg PO BID [facility] Last Admin: 11/26/16 11:08 Dose: 10 mg Spironolactone (Aldactone) 25 mg PO DAILY [facility] Last Admin: 11/26/16 11:09 Dose: 25 mg Thiamine HCl (Vitamin B1 Tab) 100 mg PO DAILY [facility] Last Admin: 11/26/16 11:09 Dose: 100 mg - Labs Labs: 11/25/16 09:15 11/25/16 09:15 PT 16.0 SECONDS (9.7-12.2) H 11/22/16 07:49 INR 1.4 11/22/16 07:49 APTT 42 SECONDS (21-34) H 11/22/16 07:49 - Constitutional Appears: Non-toxic, No Acute Distress - Head Exam Head Exam: NORMAL INSPECTION - Eye Exam Eye Exam: EOMI, Scleral icterus. absent: Nystagmus Pupil Exam: NORMAL ACCOMODATION - ENT Exam ENT Exam: Mucous Membranes Moist - Respiratory Exam Respiratory Exam: NORMAL BREATHING PATTERN. absent: Rhonchi, Wheezes, Stridor - Cardiovascular Exam Cardiovascular Exam: REGULAR RHYTHM, +S1, +S2 - GI/Abdominal Exam GI & Abdominal Exam: Soft, Tenderness (over the RUQ, epigastric), Normal Bowel Sounds. absent: Distended, Firm, Guarding, Rebound - Extremities Exam Extremities Exam: Pedal Edema (trace, non-pitting) - Neurological Exam Neurological Exam: Alert, Awake, Oriented x3 - Psychiatric Exam Psychiatric exam: Normal Affect, Normal Mood - Skin Skin Exam: Dry, Normal Color, Warm Assessment and Plan - Assessment and Plan (Free Text) Assessment: (1) Liver failure Assessment & Plan: chronic liver disease, alcoholism. Poor prognosis. Elevated WBC unclear. Less likely infectious. hematology evaluation (Dr. Ricardo Eckert) on board-->help appreciated---> per recommendation, predominant neutrophilia; likely reactive to underlying medical problems, BCR/ABL negative in the past and will send flow cytoemetery Sunday on peripheral blood to exclude clonality in her elevated WBC Procalcitonin: low Status: Chronic (2) CHF (congestive heart failure) Status: Acute (3) Coagulopathy Status: Acute (4) Hepatic encephalopathy Status: Acute
--- NOTE | 2016-11-26 16:28 | CP.PCM.PN ---
Subjective - Date & Time of Evaluation Date of Evaluation: 11/26/16 Time of Evaluation: 06:00 - Subjective Subjective: wbc still high all blood c/s neg Objective - Vital Signs/Intake and Output Vital Signs (last 24 hours): Temp Pulse Resp BP Pulse Ox 98.2 F 69 16 117/77 95 11/26/16 07:30 11/26/16 07:30 11/26/16 07:30 11/26/16 11:08 11/25/16 23:37 Intake and Output: 11/26/16 11/26/16 06:59 18:59 Intake Total 950 Balance 950 - Medications Medications: Current Medications Albuterol/Ipratropium (Duoneb 3 Mg/0.5 Mg (3 Ml) Ud) 3 ml INH RQ12 [facility] Last Admin: 11/26/16 09:06 Dose: 3 ml Chlordiazepoxide (Librium) 5 mg PO QOD6 [facility] Last Admin: 11/25/16 17:15 Dose: 5 mg Fluticasone Propionate (Flonase) 1 spr NS DAILY [facility] Last Admin: 11/26/16 11:10 Dose: Not Given Folic Acid (Folic Acid) 1 mg PO DAILY [facility] Last Admin: 11/26/16 11:08 Dose: 1 mg Furosemide (Lasix) 20 mg PO DAILY [facility] Last Admin: 11/26/16 11:08 Dose: 20 mg Gabapentin (Neurontin) 300 mg PO TID [facility] Last Admin: 11/26/16 14:16 Dose: 300 mg Hydromorphone HCl (Dilaudid) 0.5 mg IVP Q4H PRN PRN Reason: Pain, moderate (4-7) Last Admin: 11/26/16 15:03 Dose: 0.5 mg Tigecycline 50 mg/ Sodium (Chloride) 100 mls @ 100 mls/hr IVPB Q12H [facility] Last Admin: 11/26/16 14:16 Dose: 100 mls/hr Lactulose (Enulose) 20 gm PO BID [facility] Last Admin: 11/26/16 11:11 Dose: 20 gm Propranolol HCl (Inderal) 10 mg PO BID [facility] Last Admin: 11/26/16 11:08 Dose: 10 mg Saccharomyces Boulardii (Florastor) 250 mg PO BID [facility] Spironolactone (Aldactone) 25 mg PO DAILY [facility] Last Admin: 11/26/16 11:09 Dose: 25 mg Thiamine HCl (Vitamin B1 Tab) 100 mg PO DAILY [facility] Last Admin: 11/26/16 11:09 Dose: 100 mg - Labs Labs: 11/25/16 09:15 11/25/16 09:15 PT 16.0 SECONDS (9.7-12.2) H 11/22/16 07:49 INR 1.4 11/22/16 07:49 APTT 42 SECONDS (21-34) H 11/22/16 07:49 - Constitutional Appears: Non-toxic, Chronically Ill - Head Exam Head Exam: NORMOCEPHALIC - Eye Exam Eye Exam: Scleral icterus - ENT Exam ENT Exam: Mucous Membranes Dry - Neck Exam Neck Exam: absent: Lymphadenopathy - Respiratory Exam Respiratory Exam: Decreased Breath Sounds, Rhonchi - Cardiovascular Exam Cardiovascular Exam: REGULAR RHYTHM, +S1, +S2 - GI/Abdominal Exam GI & Abdominal Exam: Distended Assessment and Plan (1) Jaundice Status: Acute (2) Liver failure Status: Chronic (3) CHF (congestive heart failure) Status: Acute (4) Coagulopathy Status: Acute (5) Leukocytosis Status: Acute (6) Pleural effusion Status: Acute - Assessment and Plan (Free Text) Assessment: procalcitonin level low repeat c/s neg for flow cytometry sunday
[2016-11-26] MEDS: Saccharomyces Boulardi 250 mg Cap PO SCH (18:49)
[2016-11-27] MEDS: HYDROmorphone 0.5 mg/0.5 ml ISec IVP PRN ×5 (03:20→20:14)
[2016-11-27] MEDS: Saccharomyces Boulardi 250 mg Cap PO SCH ×2 (09:54→18:14)
[2016-11-27] MEDS: Albuterol-Ipratrop 3 mg / 0.5 (3 ml) UD INH SCH ×2 (10:02→20:18)
[2016-11-27] MEDS: Fluticasone Nasal 50 mcg/Spray NS SCH (12:00)
--- NOTE | 2016-11-27 19:17 | CP.PCM.PN ---
Subjective - Date & Time of Evaluation Date of Evaluation: 11/27/16 Time of Evaluation: 19:16 - Subjective Subjective: pt is doing ok less pain no nausea no vomiting Objective - Vital Signs/Intake and Output Vital Signs (last 24 hours): Temp Pulse Resp BP Pulse Ox 98.3 F 84 20 100/66 98 11/27/16 15:00 11/27/16 15:00 11/27/16 15:00 11/27/16 15:00 11/27/16 15:00 Intake and Output: Vital signs reviewed No neck vein distention noted Chest good air entry bilaterally, no wheezing or rales noted CVS regular heart sound, no murmur noted Abdomen soft, nontender. Extremities no pedal edema STORE COORDINATOR alert awake oriented 3, no functional neurological deficit - Medications Medications: Current Medications Albuterol/Ipratropium (Duoneb 3 Mg/0.5 Mg (3 Ml) Ud) 3 ml INH RQ12 [facility] Last Admin: 11/27/16 10:02 Dose: 3 ml Chlordiazepoxide (Librium) 5 mg PO QOD6 [facility] Last Admin: 11/27/16 18:14 Dose: 5 mg Diphenhydramine HCl (Benadryl) 25 mg PO HS PRN PRN Reason: Insomnia Fluticasone Propionate (Flonase) 1 spr NS DAILY [facility] Last Admin: 11/27/16 12:00 Dose: Not Given Folic Acid (Folic Acid) 1 mg PO DAILY [facility] Last Admin: 11/27/16 09:54 Dose: 1 mg Furosemide (Lasix) 20 mg PO DAILY [facility] Last Admin: 11/27/16 09:56 Dose: 20 mg Gabapentin (Neurontin) 300 mg PO TID [facility] Last Admin: 11/27/16 18:14 Dose: 300 mg Hydromorphone HCl (Dilaudid) 0.5 mg IVP Q4H PRN PRN Reason: Pain, moderate (4-7) Last Admin: 11/27/16 16:03 Dose: 0.5 mg Tigecycline 50 mg/ Sodium (Chloride) 100 mls @ 100 mls/hr IVPB Q12H [facility] Last Admin: 11/27/16 14:09 Dose: 100 mls/hr Lactulose (Enulose) 20 gm PO BID [facility] Last Admin: 11/27/16 09:55 Dose: 20 gm Propranolol HCl (Inderal) 10 mg PO BID [facility] Last Admin: 11/27/16 18:15 Dose: Not Given Saccharomyces Boulardii (Florastor) 250 mg PO BID [facility] Last Admin: 11/27/16 18:14 Dose: 250 mg Spironolactone (Aldactone) 25 mg PO DAILY [facility] Last Admin: 11/27/16 09:54 Dose: 25 mg Thiamine HCl (Vitamin B1 Tab) 100 mg PO DAILY [facility] Last Admin: 11/27/16 09:55 Dose: 100 mg - Labs Labs: 11/25/16 09:15 11/25/16 09:15 PT 16.0 SECONDS (9.7-12.2) H 11/22/16 07:49 INR 1.4 11/22/16 07:49 APTT 42 SECONDS (21-34) H 11/22/16 07:49 Assessment and Plan (1) Liver failure Assessment & Plan: liver disease leukocytosis ? will discuss with oncology Flowcytometry Status: Chronic (2) CHF (congestive heart failure) Status: Acute (3) Coagulopathy Status: Acute (4) Hepatic encephalopathy Status: Acute
--- NOTE | 2016-11-27 20:41 | CP.PCM.PN ---
Subjective - Date & Time of Evaluation Date of Evaluation: 11/27/16 Time of Evaluation: 19:10 - Subjective Subjective: Feeling better Objective - Vital Signs/Intake and Output Vital Signs (last 24 hours): Temp Pulse Resp BP Pulse Ox 98.3 F 84 20 100/66 98 11/27/16 15:00 11/27/16 15:00 11/27/16 15:00 11/27/16 15:00 11/27/16 15:00 - Medications Medications: Current Medications Albuterol/Ipratropium (Duoneb 3 Mg/0.5 Mg (3 Ml) Ud) 3 ml INH RQ12 [facility] Last Admin: 11/27/16 20:18 Dose: 3 ml Chlordiazepoxide (Librium) 5 mg PO QOD6 [facility] Last Admin: 11/27/16 18:14 Dose: 5 mg Diphenhydramine HCl (Benadryl) 25 mg PO HS PRN PRN Reason: Insomnia Fluticasone Propionate (Flonase) 1 spr NS DAILY [facility] Last Admin: 11/27/16 12:00 Dose: Not Given Folic Acid (Folic Acid) 1 mg PO DAILY [facility] Last Admin: 11/27/16 09:54 Dose: 1 mg Furosemide (Lasix) 20 mg PO DAILY [facility] Last Admin: 11/27/16 09:56 Dose: 20 mg Gabapentin (Neurontin) 300 mg PO TID [facility] Last Admin: 11/27/16 18:14 Dose: 300 mg Hydromorphone HCl (Dilaudid) 0.5 mg IVP Q4H PRN PRN Reason: Pain, moderate (4-7) Last Admin: 11/27/16 20:14 Dose: 0.5 mg Tigecycline 50 mg/ Sodium (Chloride) 100 mls @ 100 mls/hr IVPB Q12H [facility] Last Admin: 11/27/16 14:09 Dose: 100 mls/hr Lactulose (Enulose) 20 gm PO BID [facility] Last Admin: 11/27/16 20:15 Dose: 20 gm Propranolol HCl (Inderal) 10 mg PO BID [facility] Last Admin: 11/27/16 18:15 Dose: Not Given Saccharomyces Boulardii (Florastor) 250 mg PO BID [facility] Last Admin: 11/27/16 18:14 Dose: 250 mg Spironolactone (Aldactone) 25 mg PO DAILY [facility] Last Admin: 11/27/16 09:54 Dose: 25 mg Thiamine HCl (Vitamin B1 Tab) 100 mg PO DAILY [facility] Last Admin: 11/27/16 09:55 Dose: 100 mg - Labs Labs: 11/25/16 09:15 11/25/16 09:15 PT 16.0 SECONDS (9.7-12.2) H 11/22/16 07:49 INR 1.4 11/22/16 07:49 APTT 42 SECONDS (21-34) H 11/22/16 07:49 - Head Exam Head Exam: ATRAUMATIC - Eye Exam Eye Exam: Normal appearance - ENT Exam ENT Exam: Mucous Membranes Dry - Respiratory Exam Respiratory Exam: NORMAL BREATHING PATTERN - Cardiovascular Exam Cardiovascular Exam: +S1, +S2 - GI/Abdominal Exam GI & Abdominal Exam: Normal Bowel Sounds - Extremities Exam Extremities Exam: Normal Inspection Assessment and Plan (1) Leukocytosis Assessment & Plan: neutrophilia BCR/ABL negative will send out flow cytometery on peripheral blood tomorrow Status: Acute (2) Anemia Assessment & Plan: prior w/u chronic disease Status: Acute (3) Coagulopathy Assessment & Plan: liver disease Status: Acute
[2016-11-28] MEDS: HYDROmorphone 0.5 mg/0.5 ml ISec IVP PRN ×6 (00:05→22:29)
--- NOTE | 2016-11-28 08:25 | CP.PCM.PN ---
Subjective - Date & Time of Evaluation Date of Evaluation: 11/28/16 Time of Evaluation: 08:24 - Subjective Subjective: Patient is currently feeling better. She slept well last night. She denies any chest pain. No fever or chills noted. Right arm PICC line noted Objective - Vital Signs/Intake and Output Vital Signs (last 24 hours): Temp Pulse Resp BP Pulse Ox 98.5 F 90 20 103/60 98 11/28/16 07:25 11/28/16 07:25 11/28/16 07:25 11/28/16 07:25 11/28/16 07:25 On examination: HEENT PERRLA, neck supple No thyromegaly was noted and no cervical adenopathy noted Chest bilateral good air entry, no wheezing or rales noted CVS regular heart sound, no murmur Abdomen soft and no organomegaly Extremities no pedal edema, no leg swelling, pedal pulses are good. [employer] alert awake oriented x3 no functional neurological deficit - Medications Medications: Current Medications Albuterol/Ipratropium (Duoneb 3 Mg/0.5 Mg (3 Ml) Ud) 3 ml INH RQ12 [facility] Last Admin: 11/27/16 20:18 Dose: 3 ml Chlordiazepoxide (Librium) 5 mg PO QOD6 [facility] Last Admin: 11/27/16 18:14 Dose: 5 mg Diphenhydramine HCl (Benadryl) 25 mg PO HS PRN PRN Reason: Insomnia Last Admin: 11/27/16 21:22 Dose: 25 mg Fluticasone Propionate (Flonase) 1 spr NS DAILY [facility] Last Admin: 11/27/16 12:00 Dose: Not Given Folic Acid (Folic Acid) 1 mg PO DAILY [facility] Last Admin: 11/27/16 09:54 Dose: 1 mg Furosemide (Lasix) 20 mg PO DAILY [facility] Last Admin: 11/27/16 09:56 Dose: 20 mg Gabapentin (Neurontin) 300 mg PO TID [facility] Last Admin: 11/27/16 18:14 Dose: 300 mg Hydromorphone HCl (Dilaudid) 0.5 mg IVP Q4H PRN PRN Reason: Pain, moderate (4-7) Last Admin: 11/28/16 04:06 Dose: 0.5 mg Tigecycline 50 mg/ Sodium (Chloride) 100 mls @ 100 mls/hr IVPB Q12H [facility] Last Admin: 11/28/16 03:30 Dose: 100 mls/hr Lactulose (Enulose) 20 gm PO BID [facility] Last Admin: 11/27/16 20:15 Dose: 20 gm Propranolol HCl (Inderal) 10 mg PO BID [facility] Last Admin: 11/27/16 18:15 Dose: Not Given Saccharomyces Boulardii (Florastor) 250 mg PO BID [facility] Last Admin: 11/27/16 18:14 Dose: 250 mg Spironolactone (Aldactone) 25 mg PO DAILY [facility] Last Admin: 11/27/16 09:54 Dose: 25 mg Thiamine HCl (Vitamin B1 Tab) 100 mg PO DAILY [facility] Last Admin: 11/27/16 09:55 Dose: 100 mg - Labs Labs: 11/25/16 09:15 11/25/16 09:15 PT 16.0 SECONDS (9.7-12.2) H 11/22/16 07:49 INR 1.4 11/22/16 07:49 APTT 42 SECONDS (21-34) H 11/22/16 07:49 Assessment and Plan (1) Liver failure Assessment & Plan: Patient with chronic liver disease. Elevated WBC. Unclear etiology. Labs today. If it is stable and if it is cleared by infectious disease as well as oncology. We can discharge patient. Will follow the patient Status: Chronic (2) CHF (congestive heart failure) Status: Acute (3) Coagulopathy Status: Acute (4) Hepatic encephalopathy Status: Acute
[2016-11-28] MEDS: Albuterol-Ipratrop 3 mg / 0.5 (3 ml) UD INH SCH ×2 (09:31→20:11)
[2016-11-28 10:13] LABS: BASO # 0.2 K/uL (0.0-0.2); BASO % 1.1 % (0.0-2.0); EOS # 0.1 K/uL (0.0-0.7); EOS % 0.5 % (0.0-4.0); HEMATOCRIT 26.7 % (34.0-47.0); LYMPH # 2.6 K/uL (1.0-4.3); LYMPH % 12.5 % (20.0-40.0); MEAN CELL VOLUME 101.9 fL (81.0-99.0); MEAN CORPUSCULAR HEMOGLOBIN 34.1 pg (27.0-31.0); MEAN CORPUSCULAR HGB CONC 33.5 g/dL (33.0-37.0); MEAN PLATELET VOLUME 9.2 fL (7.2-11.7); MONO # 0.9 K/uL (0.0-0.8); MONO % 4.3 % (0.0-10.0); RED CELL DISTRIBUTION WIDTH 16.2 % (11.5-14.5)
[2016-11-28 10:33] LABS: CHLORIDE 96 mmol/L (98-107); POTASSIUM 3.7 mmol/L (3.6-5.2); SODIUM 133 mmol/L (132-148)
[2016-11-28 10:35] LABS: BILIRUBIN,TOTAL 3.3 mg/dL (0.2-1.3); CARBON DIOXIDE 27 mmol/L (22-30); GFR AFRICAN-AMERICAN > 60
[2016-11-28 10:36] LABS: ALB/GLOB RATIO 0.9 (1.0-2.1); ALKALINE PHOSPHATASE 114 U/L (38-126); ALT/SGPT 31 U/L (9-52); AST/SGOT 114 U/L (14-36); BLOOD UREA NITROGEN 16 mg/dL (7-17); CALCIUM 8.5 mg/dl (8.6-10.4); GLUCOSE,RANDOM 120 mg/dL (65-105); TOTAL PROTEIN 7.2 g/dL (6.3-8.3)
[2016-11-28] MEDS: Saccharomyces Boulardi 250 mg Cap PO SCH ×2 (10:51→18:20)
[2016-11-28] MEDS: Fluticasone Nasal 50 mcg/Spray NS SCH (10:58)
--- NOTE | 2016-11-28 17:11 | CP.PCM.PN ---
Subjective - Date & Time of Evaluation Date of Evaluation: 11/28/16 Time of Evaluation: 15:25 - Subjective Subjective: Feeling better Flow cytometery sent today Objective - Vital Signs/Intake and Output Vital Signs (last 24 hours): Temp Pulse Resp BP Pulse Ox 98.5 F 90 20 103/60 98 11/28/16 07:25 11/28/16 07:25 11/28/16 07:25 11/28/16 10:50 11/28/16 07:25 - Medications Medications: Current Medications Albuterol/Ipratropium (Duoneb 3 Mg/0.5 Mg (3 Ml) Ud) 3 ml INH RQ12 [facility] Last Admin: 11/28/16 09:31 Dose: 3 ml Chlordiazepoxide (Librium) 5 mg PO QOD6 [facility] Last Admin: 11/27/16 18:14 Dose: 5 mg Diphenhydramine HCl (Benadryl) 25 mg PO HS PRN PRN Reason: Insomnia Last Admin: 11/27/16 21:22 Dose: 25 mg Fluticasone Propionate (Flonase) 1 spr NS DAILY [facility] Last Admin: 11/28/16 10:58 Dose: 1 unit Folic Acid (Folic Acid) 1 mg PO DAILY [facility] Last Admin: 11/28/16 10:51 Dose: 1 mg Furosemide (Lasix) 20 mg PO DAILY [facility] Last Admin: 11/28/16 10:50 Dose: 20 mg Gabapentin (Neurontin) 300 mg PO TID [facility] Last Admin: 11/28/16 13:32 Dose: 300 mg Hydromorphone HCl (Dilaudid) 0.5 mg IVP Q4H PRN PRN Reason: Pain, moderate (4-7) Last Admin: 11/28/16 13:32 Dose: 0.5 mg Tigecycline 50 mg/ Sodium (Chloride) 100 mls @ 100 mls/hr IVPB Q12H [facility] Last Admin: 11/28/16 14:18 Dose: 100 mls/hr Lactulose (Enulose) 20 gm PO BID [facility] Last Admin: 11/28/16 10:51 Dose: 20 gm Propranolol HCl (Inderal) 10 mg PO BID [facility] Last Admin: 11/28/16 10:59 Dose: Not Given Saccharomyces Boulardii (Florastor) 250 mg PO BID [facility] Last Admin: 11/28/16 10:51 Dose: 250 mg Spironolactone (Aldactone) 25 mg PO DAILY [facility] Last Admin: 11/28/16 10:51 Dose: 25 mg Thiamine HCl (Vitamin B1 Tab) 100 mg PO DAILY [facility] Last Admin: 11/28/16 10:51 Dose: 100 mg - Labs Labs: 11/28/16 10:06 11/28/16 10:06 PT 16.0 SECONDS (9.7-12.2) H 11/22/16 07:49 INR 1.4 11/22/16 07:49 APTT 42 SECONDS (21-34) H 11/22/16 07:49 - Head Exam Head Exam: ATRAUMATIC - Eye Exam Eye Exam: Normal appearance - ENT Exam ENT Exam: Mucous Membranes Dry - Respiratory Exam Respiratory Exam: NORMAL BREATHING PATTERN - Cardiovascular Exam Cardiovascular Exam: +S1, +S2 - GI/Abdominal Exam GI & Abdominal Exam: Normal Bowel Sounds - Extremities Exam Extremities Exam: Pedal Edema Assessment and Plan (1) Leukocytosis Assessment & Plan: BCR/ABL negative flow cytometery sent today; outpatient f/u of results cleared from heme/onc standpoint for D/C Status: Acute (2) Anemia Status: Acute (3) Coagulopathy Status: Acute
[2016-11-29] MEDS: HYDROmorphone 0.5 mg/0.5 ml ISec IVP PRN ×4 (02:31→14:51)
[2016-11-29] MEDS: Albuterol-Ipratrop 3 mg / 0.5 (3 ml) UD INH SCH ×2 (07:56→19:46)
[2016-11-29] MEDS: Fluticasone Nasal 50 mcg/Spray NS SCH (10:04)
[2016-11-29] MEDS: Saccharomyces Boulardi 250 mg Cap PO SCH ×2 (10:52→17:59)
--- NOTE | 2016-11-29 16:33 | CP.PCM.PN ---
Subjective - Date & Time of Evaluation Date of Evaluation: 11/29/16 Time of Evaluation: 09:00 - Subjective Subjective: EVENTS NOTED RX RENEWED APPEARS COMFORTABLE lft'S STABLE NEED GI INPUT Objective - Vital Signs/Intake and Output Vital Signs (last 24 hours): Temp Pulse Resp BP Pulse Ox 98.4 F 102 H 20 109/68 97 11/29/16 07:38 11/29/16 07:38 11/29/16 07:38 11/29/16 10:53 11/29/16 07:38 Intake and Output: 11/29/16 11/29/16 06:59 18:59 Intake Total 360 Balance 360 - Medications Medications: Current Medications Albuterol/Ipratropium (Duoneb 3 Mg/0.5 Mg (3 Ml) Ud) 3 ml INH RQ12 [facility] Last Admin: 11/29/16 07:56 Dose: 3 ml Chlordiazepoxide (Librium) 5 mg PO QOD6 [facility] Last Admin: 11/27/16 18:14 Dose: 5 mg Diphenhydramine HCl (Benadryl) 25 mg PO HS PRN PRN Reason: Insomnia Last Admin: 11/28/16 22:26 Dose: 25 mg Fluticasone Propionate (Flonase) 1 spr NS DAILY [facility] Last Admin: 11/29/16 10:04 Dose: Not Given Folic Acid (Folic Acid) 1 mg PO DAILY [facility] Last Admin: 11/29/16 10:53 Dose: 1 mg Furosemide (Lasix) 20 mg PO DAILY [facility] Last Admin: 11/29/16 10:53 Dose: 20 mg Gabapentin (Neurontin) 300 mg PO TID [facility] Last Admin: 11/29/16 14:51 Dose: 300 mg Hydromorphone HCl (Dilaudid) 0.5 mg IVP Q4H PRN PRN Reason: Pain, moderate (4-7) Last Admin: 11/29/16 14:51 Dose: 0.5 mg Tigecycline 50 mg/ Sodium (Chloride) 100 mls @ 100 mls/hr IVPB Q12H [facility] Last Admin: 11/29/16 14:52 Dose: 100 mls/hr Lactulose (Enulose) 20 gm PO BID [facility] Last Admin: 11/29/16 10:52 Dose: 20 gm Propranolol HCl (Inderal) 10 mg PO BID [facility] Last Admin: 11/29/16 11:08 Dose: Not Given Saccharomyces Boulardii (Florastor) 250 mg PO BID [facility] Last Admin: 11/29/16 10:52 Dose: 250 mg Spironolactone (Aldactone) 25 mg PO DAILY [facility] Last Admin: 11/29/16 10:53 Dose: 25 mg Thiamine HCl (Vitamin B1 Tab) 100 mg PO DAILY [facility] Last Admin: 11/29/16 10:52 Dose: 100 mg - Labs Labs: 11/28/16 10:06 11/28/16 10:06 PT 16.0 SECONDS (9.7-12.2) H 11/22/16 07:49 INR 1.4 11/22/16 07:49 APTT 42 SECONDS (21-34) H 11/22/16 07:49 - Constitutional Appears: Non-toxic, Chronically Ill - Head Exam Head Exam: NORMOCEPHALIC - Eye Exam Eye Exam: Scleral icterus - ENT Exam ENT Exam: Mucous Membranes Dry - Neck Exam Neck Exam: absent: Lymphadenopathy - Respiratory Exam Respiratory Exam: Decreased Breath Sounds - Cardiovascular Exam Cardiovascular Exam: REGULAR RHYTHM Assessment and Plan (1) Jaundice Status: Acute (2) Liver failure Status: Chronic (3) CHF (congestive heart failure) Status: Acute (4) Coagulopathy Status: Acute (5) Leukocytosis Status: Acute (6) Pleural effusion Status: Acute
[2016-11-30] MEDS: HYDROmorphone 0.5 mg/0.5 ml ISec IVP PRN ×6 (00:14→21:48)
[2016-11-30] MEDS: Albuterol-Ipratrop 3 mg / 0.5 (3 ml) UD INH SCH ×2 (08:05→20:10)
[2016-11-30] MEDS: Saccharomyces Boulardi 250 mg Cap PO SCH ×2 (09:31→17:36)
[2016-11-30] MEDS: Fluticasone Nasal 50 mcg/Spray NS SCH (09:33)
[2016-12-01] MEDS: HYDROmorphone 0.5 mg/0.5 ml ISec IVP PRN ×4 (02:07→15:33)
[2016-12-01] MEDS: Albuterol-Ipratrop 3 mg / 0.5 (3 ml) UD INH SCH ×2 (07:50→19:46)
[2016-12-01] MEDS: Saccharomyces Boulardi 250 mg Cap PO SCH (10:53)
[2016-12-01] MEDS: Fluticasone Nasal 50 mcg/Spray NS SCH (10:54)
--- NOTE | 2016-12-01 14:36 | CP.PCM.PN ---
Subjective - Date & Time of Evaluation Date of Evaluation: 11/29/16 Time of Evaluation: 14:35 - Subjective Subjective: clinical stable. Feeling better. No leg swelling. Pneumonia improving. Patient will discharge home soon. We will follow the patien Objective - Vital Signs/Intake and Output Vital Signs (last 24 hours): Temp Pulse Resp BP Pulse Ox 98.3 F 88 20 105/68 97 12/01/16 07:27 12/01/16 07:27 12/01/16 07:27 12/01/16 10:53 12/01/16 07:27 Intake and Output: 12/01/16 12/01/16 06:59 18:59 Intake Total 460 Balance 460 - Medications Medications: Current Medications Albuterol/Ipratropium (Duoneb 3 Mg/0.5 Mg (3 Ml) Ud) 3 ml INH RQ12 [facility] Last Admin: 12/01/16 07:50 Dose: 3 ml Chlordiazepoxide (Librium) 5 mg PO QOD6 [facility] Last Admin: 11/29/16 17:59 Dose: 5 mg Diphenhydramine HCl (Benadryl) 25 mg PO HS PRN PRN Reason: Insomnia Last Admin: 11/30/16 21:49 Dose: 25 mg Fluticasone Propionate (Flonase) 1 spr NS DAILY [facility] Last Admin: 12/01/16 10:54 Dose: Not Given Folic Acid (Folic Acid) 1 mg PO DAILY [facility] Last Admin: 12/01/16 10:53 Dose: 1 mg Furosemide (Lasix) 20 mg PO DAILY [facility] Last Admin: 12/01/16 10:53 Dose: 20 mg Gabapentin (Neurontin) 300 mg PO TID [facility] Last Admin: 12/01/16 13:05 Dose: 300 mg Hydromorphone HCl (Dilaudid) 0.5 mg IVP Q4H PRN PRN Reason: Pain, moderate (4-7) Last Admin: 12/01/16 11:02 Dose: 0.5 mg Tigecycline 50 mg/ Sodium (Chloride) 100 mls @ 100 mls/hr IVPB Q12H [facility] Last Admin: 12/01/16 02:06 Dose: 100 mls/hr Lactulose (Enulose) 20 gm PO BID [facility] Last Admin: 12/01/16 10:54 Dose: 20 gm Propranolol HCl (Inderal) 10 mg PO BID [facility] Last Admin: 12/01/16 10:54 Dose: Not Given Saccharomyces Boulardii (Florastor) 250 mg PO BID [facility] Last Admin: 12/01/16 10:53 Dose: 250 mg Spironolactone (Aldactone) 25 mg PO DAILY [facility] Last Admin: 12/01/16 10:53 Dose: 25 mg Thiamine HCl (Vitamin B1 Tab) 100 mg PO DAILY [facility] Last Admin: 12/01/16 10:53 Dose: 100 mg - Labs Labs: 11/28/16 10:06 11/28/16 10:06 PT 16.0 SECONDS (9.7-12.2) H 11/22/16 07:49 INR 1.4 11/22/16 07:49 APTT 42 SECONDS (21-34) H 11/22/16 07:49 Assessment and Plan (1) Liver failure Status: Chronic (2) CHF (congestive heart failure) Status: Acute (3) Coagulopathy Status: Acute (4) Hepatic encephalopathy Status: Acute
--- NOTE | 2016-12-01 14:36 | CP.PCM.PN ---
Subjective - Date & Time of Evaluation Date of Evaluation: 11/30/16 Time of Evaluation: 14:36 - Subjective Subjective: clinically stable. Continue treatment. possible dischargein the morning Objective - Vital Signs/Intake and Output Vital Signs (last 24 hours): Temp Pulse Resp BP Pulse Ox 98.3 F 88 20 105/68 97 12/01/16 07:27 12/01/16 07:27 12/01/16 07:27 12/01/16 10:53 12/01/16 07:27 Intake and Output: 12/01/16 12/01/16 06:59 18:59 Intake Total 460 Balance 460 - Medications Medications: Current Medications Albuterol/Ipratropium (Duoneb 3 Mg/0.5 Mg (3 Ml) Ud) 3 ml INH RQ12 [facility] Last Admin: 12/01/16 07:50 Dose: 3 ml Chlordiazepoxide (Librium) 5 mg PO QOD6 [facility] Last Admin: 11/29/16 17:59 Dose: 5 mg Diphenhydramine HCl (Benadryl) 25 mg PO HS PRN PRN Reason: Insomnia Last Admin: 11/30/16 21:49 Dose: 25 mg Fluticasone Propionate (Flonase) 1 spr NS DAILY [facility] Last Admin: 12/01/16 10:54 Dose: Not Given Folic Acid (Folic Acid) 1 mg PO DAILY [facility] Last Admin: 12/01/16 10:53 Dose: 1 mg Furosemide (Lasix) 20 mg PO DAILY [facility] Last Admin: 12/01/16 10:53 Dose: 20 mg Gabapentin (Neurontin) 300 mg PO TID [facility] Last Admin: 12/01/16 13:05 Dose: 300 mg Hydromorphone HCl (Dilaudid) 0.5 mg IVP Q4H PRN PRN Reason: Pain, moderate (4-7) Last Admin: 12/01/16 11:02 Dose: 0.5 mg Tigecycline 50 mg/ Sodium (Chloride) 100 mls @ 100 mls/hr IVPB Q12H [facility] Last Admin: 12/01/16 02:06 Dose: 100 mls/hr Lactulose (Enulose) 20 gm PO BID [facility] Last Admin: 12/01/16 10:54 Dose: 20 gm Propranolol HCl (Inderal) 10 mg PO BID [facility] Last Admin: 12/01/16 10:54 Dose: Not Given Saccharomyces Boulardii (Florastor) 250 mg PO BID [facility] Last Admin: 12/01/16 10:53 Dose: 250 mg Spironolactone (Aldactone) 25 mg PO DAILY [facility] Last Admin: 12/01/16 10:53 Dose: 25 mg Thiamine HCl (Vitamin B1 Tab) 100 mg PO DAILY [facility] Last Admin: 12/01/16 10:53 Dose: 100 mg - Labs Labs: 11/28/16 10:06 11/28/16 10:06 PT 16.0 SECONDS (9.7-12.2) H 11/22/16 07:49 INR 1.4 11/22/16 07:49 APTT 42 SECONDS (21-34) H 11/22/16 07:49 Assessment and Plan (1) Liver failure Status: Chronic (2) CHF (congestive heart failure) Status: Acute (3) Coagulopathy Status: Acute (4) Hepatic encephalopathy Status: Acute
--- NOTE | 2016-12-01 14:37 | CP.PCM.DIS ---
Provider - Provider Date of Admission: 11/06/16 22:52 Attending physician: Virginia Carty MD Time Spent in preparation of Discharge (in minutes): 45 Diagnosis - Discharge Diagnosis (1) Liver failure Status: Chronic (2) CHF (congestive heart failure) Status: Acute (3) Coagulopathy Status: Acute (4) Hepatic encephalopathy Status: Acute Hospital Course - Lab Results Lab Results: Micro Results 11/19/16 10:50 Blood Blood Culture - Final NO GROWTH AFTER 5 DAYS 11/19/16 10:50 Blood Gram Stain - Final 11/19/16 08:14 Blood Blood Culture - Final NO GROWTH AFTER 5 DAYS 11/19/16 08:14 Blood Gram Stain - Final TEST NOT PERFORMED 11/21/16 21:00 Sputum Gram Stain - Final 11/21/16 21:00 Sputum Sputum Culture - Final NORMAL ORAL SHARIF 11/18/16 07:00 Blood-Venous Blood Culture - Final NO GROWTH AFTER 5 DAYS 11/18/16 07:00 Blood-Venous Gram Stain - Final TEST NOT PERFORMED 11/18/16 09:19 Blood-Venous Blood Culture - Final NO GROWTH AFTER 5 DAYS 11/18/16 09:19 Blood-Venous Gram Stain - Final TEST NOT PERFORMED 11/19/16 13:43 Urine Urine Culture - Final No Growth (<1,000 CFU/ML) 11/12/16 14:25 Blood-Thru Central Line Blood Culture - Final NO GROWTH AFTER 5 DAYS 11/12/16 14:25 Blood-Thru Central Line Gram Stain - Final 11/12/16 06:00 Catheter Tip Catheter Tip Culture - Final Vancomycin Resistant E.faecium 11/12/16 13:45 Blood-Venous Blood Culture - Final NO GROWTH AFTER 5 DAYS 11/12/16 13:45 Blood-Venous Gram Stain - Final TEST NOT PERFORMED 11/12/16 13:50 Urine,Clean Catch Urine Culture - Final 10-50,000 CFU/ML. MULTIPLE SPECIES. PROBABLE CONTAMINATION. 11/10/16 15:30 Body Fluid - Pleural Fluid Gram Stain - Final 11/10/16 15:30 Body Fluid - Pleural Fluid Body Fluid Culture - Final No growth. 11/07/16 12:26 Blood-Thru Central Line Blood Culture - Final NO GROWTH AFTER 5 DAYS 11/07/16 12:26 Blood-Thru Central Line Gram Stain - Final 11/07/16 11:10 Blood-Thru Central Line Blood Culture - Final NO GROWTH AFTER 5 DAYS 11/07/16 11:10 Blood-Thru Central Line Gram Stain - Final TEST NOT PERFORMED Most Recent Lab Values WBC 21.0 K/uL (4.8-10.8) H 11/28/16 10:06 RBC 2.62 Mil/uL (3.80-5.20) L 11/28/16 10:06 Hgb 8.9 g/dL (11.0-16.0) L 11/28/16 10:06 Hct 26.7 % (34.0-47.0) L 11/28/16 10:06 MCV 101.9 fL (81.0-99.0) H 11/28/16 10:06 MCH 34.1 pg (27.0-31.0) H 11/28/16 10:06 MCHC 33.5 g/dL (33.0-37.0) 11/28/16 10:06 RDW 16.2 % (11.5-14.5) H 11/28/16 10:06 Plt Count 428 K/uL (130-400) H 11/28/16 10:06 MPV 9.2 fL (7.2-11.7) 11/28/16 10:06 Neut % (Auto) 81.6 % (50.0-75.0) H 11/28/16 10:06 Lymph % (Auto) 12.5 % (20.0-40.0) L 11/28/16 10:06 [place] % (Auto) 4.3 % (0.0-10.0) 11/28/16 10:06 Eos % (Auto) 0.5 % (0.0-4.0) 11/28/16 10:06 Baso % (Auto) 1.1 % (0.0-2.0) 11/28/16 10:06 Neut # 17.1 K/uL (1.8-7.0) H 11/28/16 10:06 Lymph # 2.6 K/uL (1.0-4.3) 11/28/16 10:06 [place] # 0.9 K/uL (0.0-0.8) H 11/28/16 10:06 Eos # 0.1 K/uL (0.0-0.7) 11/28/16 10:06 Baso # 0.2 K/uL (0.0-0.2) 11/28/16 10:06 Neutrophils % (Manual) 83 % (50-75) H 11/15/16 18:21 Band Neutrophils % 4 % (0-2) H 11/15/16 18:21 Lymphocytes % (Manual) 8 % (20-40) L 11/15/16 18:21 Monocytes % (Manual) 5 % (0-10) 11/15/16 18:21 Differential Comment 11/21/16 06:49 Platelet Estimate Slightly increased (NORMAL) H 11/15/16 18:21 Hypochromasia (manual) Slight 11/13/16 10:25 Poikilocytosis (manual Slight 11/15/16 18:21 Anisocytosis (manual) Slight 11/15/16 18:21 Microcytosis (manual) Slight 11/13/16 10:25 Macrocytosis (manual) Slight 11/15/16 18:21 Target Cells Slight 11/13/16 10:25 ESR 134 mm/hr (0-20) H 11/19/16 11:25 PT 16.0 SECONDS (9.7-12.2) H 11/22/16 07:49 INR 1.4 11/22/16 07:49 APTT 42 SECONDS (21-34) H 11/22/16 07:49 Sodium 133 mmol/L (132-148) 11/28/16 10:06 Potassium 3.7 mmol/L (3.6-5.2) 11/28/16 10:06 Chloride 96 mmol/L (98-107) L 11/28/16 10:06 Carbon Dioxide 27 mmol/L (22-30) 11/28/16 10:06 Anion Gap 14 (10-20) 11/28/16 10:06 BUN 16 mg/dL (7-17) 11/28/16 10:06 Creatinine 0.4 MG/DL (0.7-1.2) L 11/28/16 10:06 Est GFR ( Amer) > 60 11/28/16 10:06 Est GFR (Non-Af Amer) > 60 11/28/16 10:06 Random Glucose 120 mg/dL (65-105) H 11/28/16 10:06 Calcium 8.5 mg/dl (8.6-10.4) L 11/28/16 10:06 Total Bilirubin 3.3 mg/dL (0.2-1.3) H 11/28/16 10:06 AST 114 U/L (14-36) H 11/28/16 10:06 ALT 31 U/L (9-52) 11/28/16 10:06 Alkaline Phosphatase 114 U/L (38-126) 11/28/16 10:06 Ammonia 37 umol/L (9-33) H D 11/28/16 10:06 C-React Prot High Sens > 15.00 mg/L (1.00-3.00) H 11/19/16 11:25 Total Protein 7.2 g/dL (6.3-8.3) 11/28/16 10:06 Albumin 3.3 g/dL (3.5-5.0) L 11/28/16 10:06 Globulin 3.8 gm/dL (2.2-3.9) 11/28/16 10:06 Albumin/Globulin Ratio 0.9 (1.0-2.1) L 11/28/16 10:06 Lipase 44 U/L (23-300) 11/06/16 20:11 Procalcitonin 0.10 NG/ML (0.19-0.49) L 11/25/16 09:15 Beta HCG, Quant < 2.39 mIU/ML 11/12/16 19:44 Urine Color [place] (YELLOW) 11/19/16 14:11 Urine Clarity Clear (Clear) 11/19/16 14:11 Urine pH 7.0 (5.0-8.0) 11/19/16 14:11 Ur Specific [place] 1.019 (1.003-1.030) 11/19/16 14:11 Urine Protein 1+ mg/dL (NEGATIVE) H 11/19/16 14:11 Urine Glucose (UA) Normal mg/dL (Normal) 11/19/16 14:11 Urine Ketones Negative mg/dL (NEGATIVE) 11/19/16 14:11 Urine Blood Negative (NEGATIVE) 11/19/16 14:11 Urine Nitrate Negative (NEGATIVE) 11/19/16 14:11 Urine Bilirubin Negative (NEGATIVE) 11/19/16 14:11 Urine Urobilinogen Normal mg/dL (0.2-1.0) 11/19/16 14:11 Ur Leukocyte Esterase Neg Mariela/uL (Negative) 11/19/16 14:11 Urine WBC (Auto) 1 /hpf (0-5) 11/19/16 14:11 Urine RBC (Auto) 1 /hpf (0-3) 11/19/16 14:11 Ur Squamous Epith Cells 2 /hpf (0-5) 11/19/16 14:11 Urine Bacteria Rare (<OCC) 11/13/16 01:13 Urine HCG, Qual Negative (NEGATIVE) 11/21/16 11:08 Fluid Source Pleural 11/10/16 11:43 Fluid Appearance Sl cloudy (CLEAR) 11/10/16 11:43 Fluid WBC 370.0 /mm3 (0.0-300.0) H 11/10/16 11:43 Fluid RBC 365.0 /mm3 (0.0-0.0) H 11/10/16 11:43 Fluid Tot Cell Count TEST NOT PERFORMED 11/10/16 11:43 Fluid Neutrophils 6.0 % (0-0) H 11/10/16 11:43 Fluid Lymphocytes 88.0 % (0-0) H 11/10/16 11:43 Fld Monocyte/Macrophag 6 % (0-0) H 11/10/16 11:43 Fluid Comment 11/10/16 11:43 Pleural Total Protein <3.0 g/dL 11/10/16 11:43 Pleural LDH 118 U/L 11/10/16 11:43 Pleural Glucose 118 mg/dL 11/10/16 11:43 Vancomycin Trough < 5.0 ug/mL (5.0-10.0) L 11/14/16 13:20 Urine Opiates Screen Positive (NEGATIVE) 11/07/16 11:21 Urine Methadone Screen Negative (NEGATIVE) 11/07/16 11:21 Ur Barbiturates Screen Negative (NEGATIVE) 11/07/16 11:21 Ur Phencyclidine Scrn Negative (NEGATIVE) 11/07/16 11:21 Ur Amphetamines Screen Negative (NEGATIVE) 11/07/16 11:21 U Benzodiazepines Scrn Negative (NEGATIVE) 11/07/16 11:21 U Oth Cocaine Metabols Negative (NEGATIVE) 11/07/16 11:21 U Cannabinoids Screen Negative (NEGATIVE) 11/07/16 11:21 Alcohol, Quantitative < 10 mg/dl (0-10) 11/07/16 11:21 Rheum Arthritis Panel Negative (NEGATIVE) 11/19/16 11:25 CAROLYN 6 Profile Negative (NEGATIVE) 11/19/16 11:25 C. difficile Ag & Toxin Negative (NEGATIVE) 11/12/16 13:50 - Hospital Course Hospital Course: 31-year-old female with history of alcoholism, liver disease, abdominal swelling and pain, distention. Recently hospitalized with acute pneumonia, placed on IV antibiotic with the right-sided PICC line. Patient continued to receive antibiotic. She admitted to the hospital with worsening abdominal pain, nausea vomiting. Patient was found to have ongoing sepsis. Also worsening nausea vomiting. Patient also started having sleepiness, dizziness, and also lethargic. In the emergency room patient was evaluated. Elevated ammonia level noted. Patient was placed on IV antibiotic, hospitalist. Patient is still in the hospital patient was placed on IV fluid antibiotic. Antibiotic, Diuretic GI evaluation, infectious disease evaluation was called. Patient condition slowly improved. I spoke to the patient's family in details. Family wanted to transfer her to transplant team. I spoke to the liver transplant team at [facility], they recommended that the patient needs to continue the medication, white count has to improve. She can be seen as an outpatient. I spoke to the family and explained about the discussion. Clinical currently patient is stable. She will discharge home. 0034 Medications reviewed. Spoke to the family in details. We'll follow the patient. Discharge Exam - Head Exam Head Exam: NORMOCEPHALIC Discharge Plan - Follow Up Plan Condition: FAIR Disposition: HOME/ ROUTINE Instructions: Cirrhosis (DC), Jaundice (DC) Referrals: Virginia Carty MD [Staff Provider] -
[2016-12-01 17:04] VITALS: BP 115/76; PULSE 107; RESP 18; TEMP 98.5; O2SAT 99
[2016-12-01] MEDS ORDERED: Acetylcysteine 20% Inhal Soln (4ml) ONE (19:25)
== END 2016-12-01 20:00 | disposition home or self-care (01) | DRG 584 ==
LOC: C.ER 16:59 → C.9E 22:52 → C.5T 11-07 00:21 → C.6T 11-07 22:16 → C.5T 11-07 22:28 → C.3T 11-26 19:46
PROVIDERS: ADMIT Internal Medicine; ATTEND Internal Medicine
PROC: 0W993ZZ Drainage of Right Pleural Cavity, Percutaneous Approach (ICD-10-PCS; principal; 2016-11-10)
PROC: 02HV33Z Insertion of Infusion Device into Superior Vena Cava, Percutaneous Approach (ICD-10-PCS; 2016-11-15)
DX: A41.51 Sepsis due to Escherichia coli [E. coli] (principal); J18.9 Pneumonia, unspecified organism; J90 Pleural effusion, not elsewhere classified; I11.0 Hypertensive heart disease with heart failure; D68.9 Coagulation defect, unspecified; I50.9 Heart failure, unspecified; K76.6 Portal hypertension; K70.31 Alcoholic cirrhosis of liver with ascites; R04.2 Hemoptysis; F10.239 Alcohol dependence with withdrawal, unspecified; K70.40 Alcoholic hepatic failure without coma; R65.20 Severe sepsis without septic shock; K70.11 Alcoholic hepatitis with ascites; F41.9 Anxiety disorder, unspecified; J45.909 Unspecified asthma, uncomplicated; D64.9 Anemia, unspecified; Y90.0 Blood alcohol level of less than 20 mg/100 ml; G40.909 Epilepsy, unspecified, not intractable, without status epilepticus

== ENCOUNTER 2017-04-23 15:46 | Emergency (ER) | payer MEDICAID, OTHER ==
[2017-04-23 15:47] VITALS: BMI 25.2
[2017-04-23] MEDS ORDERED: Albuterol-Ipratrop 3 mg / 0.5 (3 ml) UD ONE (16:03)
[2017-04-23] MEDS ORDERED: Albuterol-Ipratrop 3 mg / 0.5 (3 ml) UD INH STA (16:04)
[2017-04-23] MEDS ORDERED: Albuterol 0.083% Inhal Sol (2.5 mg/3 mL) UD INH STA ×2 (16:42→18:45)
--- NOTE | 2017-04-23 16:44 | C.PDOC ---
Time Seen by Provider: 04/23/17 16:27 Chief Complaint (Nursing): Shortness Of Breath Past Medical History Vital Signs: Last Vital Signs Temp 98.1 F 04/23/17 15:56 Pulse 82 04/23/17 15:56 Resp 18 04/23/17 15:56 BP 162/90 H 04/23/17 15:56 Pulse Ox 100 04/23/17 15:56 - Medical History PMH: Anxiety, Asthma, HTN, Seizures Denies: Diabetes, Hepatitis, HIV, Chronic Kidney Disease, Sexually Transmitted Disease - [facility] Procedures DETOXIFICATION SERVICES FOR SUBSTANCE ABUSE TREATMENT (11/09/15) DRAINAGE OF RIGHT PLEURAL CAVITY, PERCUTANEOUS APPROACH (11/06/16) INSERTION OF INFUSION DEV INTO SUP VENA CAVA, PERC APPROACH (11/06/16) Family History: States: Unknown Family Hx - Social History Hx Alcohol Use: No (Last drink almost one year) Hx Substance Use: No - Immunization History Hx Tetanus Toxoid Vaccination: No Hx Influenza Vaccination: No Hx Pneumococcal Vaccination: No ED Course And Treatment O2 Sat by Pulse Oximetry: 100 Disposition - Disposition
--- NOTE | 2017-04-23 16:44 | C.PDOC ---
History Of Present Illness 32 y/o female with a hx of asthma and cirrhosis, c/o worsening SOB for 4 days. Associated cough, wheezing, vomiting, subjective fever, chills, facial flushing , and body aches. Patient notes exposure to second hand smoking. Denies chest pain, palpitations, or lower leg swelling or pain. No diarrhea. Time Seen by Provider: 04/23/17 16:27 Chief Complaint (Nursing): Shortness Of Breath History Per: Patient History/Exam Limitations: no limitations Onset/Duration Of Symptoms: Days (4) Current Symptoms Are (Timing): Still Present Initiating Event: Exposure To Smoke Severity: Mild Associated Symptoms: Fever (subjective), Chills Additional History Per: Patient Past Medical History Reviewed: Historical Data, Nursing Documentation, Vital Signs Vital Signs: Last Vital Signs Temp 98.4 F 04/23/17 20:17 Pulse 80 04/23/17 20:17 Resp 19 04/23/17 20:17 BP 150/98 H 04/23/17 20:17 Pulse Ox 99 04/23/17 20:17 - Medical History PMH: Anxiety, Asthma, HTN, Seizures Denies: Diabetes, Hepatitis, HIV, Chronic Kidney Disease, Sexually Transmitted Disease - [facility] Procedures DETOXIFICATION SERVICES FOR SUBSTANCE ABUSE TREATMENT (11/09/15) DRAINAGE OF RIGHT PLEURAL CAVITY, PERCUTANEOUS APPROACH (11/06/16) INSERTION OF INFUSION DEV INTO SUP VENA CAVA, PERC APPROACH (11/06/16) Family History: States: Unknown Family Hx - Social History Hx Alcohol Use: No (Last drink almost one year) Hx Substance Use: No - Immunization History Hx Tetanus Toxoid Vaccination: No Hx Influenza Vaccination: No Hx Pneumococcal Vaccination: No Review Of Systems Except As Marked, All Systems Reviewed And Found Negative. Constitutional: Positive for: Fever (Subjective), Chills, Other (Body aches, facial flushing.) Cardiovascular: Negative for: Chest Pain, Palpitations Respiratory: Positive for: Cough, Shortness of Breath, Wheezing Gastrointestinal: Positive for: Vomiting. Negative for: Diarrhea Musculoskeletal: Negative for: Leg Pain (Pain or swellling) Physical Exam - Physical Exam Appears: Non-toxic, No Acute Distress Skin: Warm, Dry Head: Atraumatic, Normacephalic Oral Mucosa: Moist Chest: Symmetrical Cardiovascular: Rhythm Regular, No Murmur Respiratory: Rhonchi (Bilateral course rhonchi), Wheezing (Bilateral expiratory wheezes), Other (Good air movement) Gastrointestinal/Abdominal: Bowel Sounds (Active), Soft, Tenderness (RUQ), No Organomegaly, Guarding (Voluntary guarding), No Rebound, No Ascites, No Other ( Yeboah's sign) Back: No CVA Tenderness Extremity: Normal ROM (x4) Neurological/Psych: Oriented x3, Other (Mild resting tremors) ED Course And Treatment - Laboratory Results Result Diagrams: 04/23/17 17:29 04/23/17 17:29 Lab Interpretation: Normal O2 Sat by Pulse Oximetry: 100 (RA) Pulse Ox Interpretation: Normal - Radiology CXR: Interpreted by Me CXR Interpretation: Yes: No Acute Disease Progress Note: On reevaluation, patient's wheezes have improved and airflow has improved. Patient is saturating at 100% during treatment, respiratory rate is normal. Patient is speaking in complete sentences; will discharge home on medications for asthmatic bronchitis. Medical Decision Making Medical Decision Making: Plans: * Blood labs * CXR * UA * Albuterol * SOLU-Medrol Consider CT Abd/Pel if liver panel is abnormal. DDx: Asthma exacerbation vs Chronic hepatitis Disposition - Disposition Disposition: HOME/ ROUTINE Disposition Time: 22:47 Condition: GOOD Prescriptions: Albuterol Sulfate [Proair Hfa] 8.5 gm IH Q4H PRN #1 inh PRN Reason: Shortness Of Breath Azithromycin [Z-Sudarshan] 250 mg PO DAILY #6 tab Azithromycin [Zithromax] 500 mg PO ONCE #1 tablet predniSONE [predniSONE Tab] 20 mg PO DAILY #5 tab Instructions: Asthma (GEN) Forms: General Discharge Instructions, [facility] (Belarusian) - Clinical Impression Clinical Impression: Asthmatic bronchitis - Scribe Statement The provider has reviewed the documentation as recorded by the Scribe Jaime [email or web address] All medical record entries made by the Scribe were at my direction and personally dictated by me. I have reviewed the chart and agree that the record accurately reflects my personal performance of the history, physical exam, medical decision making, and the department course for this patient. I have also personally directed, reviewed, and agree with the discharge instructions and disposition.
[2017-04-23 17:42] LABS: BASO % 0.7 % (0.0-2.0); EOS # 0.1 K/uL (0.0-0.7); EOS % 1.5 % (0.0-4.0); HEMATOCRIT 34.1 % (34.0-47.0); LYMPH # 1.3 K/uL (1.0-4.3); LYMPH % 32.3 % (20.0-40.0); MEAN PLATELET VOLUME 8.3 fL (7.2-11.7); MONO # 0.2 K/uL (0.0-0.8); MONO % 4.7 % (0.0-10.0); NRBC % 0.2 % (0.0-2.0); RED CELL DISTRIBUTION WIDTH 13.9 % (11.5-14.5); WHITE BLOOD COUNT 4.2 K/uL (4.8-10.8)
[2017-04-23 17:43] LABS: CHLORIDE 102 mmol/L (98-107); POTASSIUM 3.2 mmol/L (3.6-5.2); SODIUM 137 mmol/L (132-148)
[2017-04-23 17:44] LABS: MEAN CELL VOLUME 91.3 fL (81.0-99.0); RBC URINE 1 /hpf (0-3); URINE BILIRUBIN NEGATIVE (NEGATIVE); URINE BLOOD NEGATIVE (NEGATIVE); URINE COLOR Yellow (YELLOW); URINE GLUCOSE (UA) NORMAL (Normal); URINE KETONE NEGATIVE (NEGATIVE); URINE LEUKOCYTE ESTERASE NEG Leu/uL (Negative); URINE PROTEIN NEGATIVE (NEGATIVE); WBC URINE 2 /hpf (0-5)
[2017-04-23 17:45] LABS: AST/SGOT 56 U/L (14-36); BILIRUBIN,TOTAL 1.2 mg/dL (0.2-1.3); CARBON DIOXIDE 26 mmol/L (22-30); GFR AFRICAN-AMERICAN > 60; INR 1.4
[2017-04-23] MEDS ORDERED: Albuterol 0.083% Inhal Sol (2.5 mg/3 mL) UD ONE ×2 (17:45→19:01)
[2017-04-23 17:46] LABS: ALB/GLOB RATIO 0.9 (1.0-2.1); ALKALINE PHOSPHATASE 141 U/L (38-126); ALT/SGPT 56 U/L (9-52); BLOOD UREA NITROGEN 12 mg/dL (7-17); CALCIUM 9.1 mg/dl (8.6-10.4); GLUCOSE,RANDOM 84 mg/dL (65-105); TOTAL PROTEIN 8.3 g/dL (6.3-8.3)
[2017-04-23 17:47] LABS: ALCOHOL SERUM < 10 mg/dl (0-10)
--- NOTE | 2017-04-23 18:38 | RAD ---
HISTORY: SOB COMPARISON: Chest x-ray performed 11/22/16 TECHNIQUE: Chest, one view. FINDINGS: Chung limited by habitus. LUNGS: No focal consolidation. Scattered probable tiny calcified granulomas. Please note that chest x-ray has limited sensitivity for the detection of pulmonary masses. PLEURA: No significant pleural effusion identified. No definite pneumothorax . CARDIOVASCULAR: Heart size appears within normal limits. OSSEOUS STRUCTURES: No acute osseous abnormality identified. VISUALIZED UPPER ABDOMEN: Unremarkable. OTHER FINDINGS: None. IMPRESSION: No focal consolidation, significant pleural effusion, or definite pneumothorax identified. Scattered tiny probable calcified granulomas.
[2017-04-23 19:43] VITALS: TEMP 98.4
[2017-04-23 20:17] VITALS: BP 150/98; PULSE 80; RESP 19
[2017-04-23 22:48] VITALS: O2SAT 100
== END 2017-04-23 20:21 | disposition home or self-care (01) ==
LOC: C.ER 15:46
DX: J45.909 Unspecified asthma, uncomplicated (principal); I10 Essential (primary) hypertension
CPT/HCPCS: 71010; 80053; 80320; 81001; 82140; 83690; 83880; 84703; 85025; 85610; 85730; 94640; 96374; 99285; J1885; J2930

== ENCOUNTER 2017-08-02 15:47 | Emergency (ER) | payer MEDICAID, OTHER ==
[2017-08-02 15:47] VITALS: BMI 25.2
[2017-08-02 17:24] LABS: BASO % 0.6 % (0.0-2.0); EOS # 0.1 K/uL (0.0-0.7); EOS % 0.9 % (0.0-4.0); LYMPH # 1.6 K/uL (1.0-4.3); LYMPH % 23.4 % (20.0-40.0); MEAN CORPUSCULAR HEMOGLOBIN 31.6 pg (27.0-31.0); MEAN CORPUSCULAR HGB CONC 33.4 g/dL (33.0-37.0); MEAN PLATELET VOLUME 8.8 fL (7.2-11.7); MONO # 0.2 K/uL (0.0-0.8); MONO % 3.1 % (0.0-10.0); NRBC % 0.1 % (0.0-2.0); RBC 4.4 Mil/uL (3.80-5.20); RED CELL DISTRIBUTION WIDTH 13.8 % (11.5-14.5)
[2017-08-02 17:29] LABS: HCG,QUALITATIVE URINE NEGATIVE (NEGATIVE)
[2017-08-02 17:33] LABS: HEMOGLOBIN 13.9 g/dL (11.0-16.0); MEAN CELL VOLUME 94.5 fL (81.0-99.0); WHITE BLOOD COUNT 6.9 K/uL (4.8-10.8)
--- NOTE | 2017-08-02 17:34 | C.PDOC ---
History Of Present Illness 32-YEAR-OLD FEMALE, REFERRED BY DR ZIGGY CORDOVA FOR VOMITING/DIARRHEA X4 DAYS , +SUBJ FEVER, LAST 2 DAYS AGO. HX OF CIRRHOSIS, ADMITTED LAST YEAR FOR HEPATIC ENCEPHALOPATHY. PATIENT HAD FOLLOWED UP AND FOUND DOES NOT NEED LIVER TRANSPLANT. LAST DRINK IN JUNE. EXAM RUQ EPIG TEN ANICTERIC Time Seen by Provider: 08/02/17 17:22 Chief Complaint (Nursing): Abdominal Pain History Per: Patient History/Exam Limitations: no limitations Onset/Duration Of Symptoms: Days Current Symptoms Are (Timing): Still Present Past Medical History Reviewed: Historical Data, Nursing Documentation, Vital Signs Vital Signs: Last Vital Signs Temp 98.6 F 08/02/17 16:13 Pulse 95 H 08/02/17 16:13 Resp 19 08/02/17 16:13 BP 162/120 H 08/02/17 16:13 Pulse Ox 100 08/02/17 17:39 - Medical History PMH: Anxiety, Asthma, HTN, Seizures - [facility] Procedures DETOXIFICATION SERVICES FOR SUBSTANCE ABUSE TREATMENT (11/09/15) DRAINAGE OF RIGHT PLEURAL CAVITY, PERCUTANEOUS APPROACH (11/06/16) INSERTION OF INFUSION DEV INTO SUP VENA CAVA, PERC APPROACH (11/06/16) Family History: States: No Known Family Hx - Social History Hx Alcohol Use: No (Last drink almost one year) Hx Substance Use: No - Immunization History Hx Tetanus Toxoid Vaccination: No Hx Influenza Vaccination: No Hx Pneumococcal Vaccination: No Review Of Systems Except As Marked, All Systems Reviewed And Found Negative. Constitutional: Positive for: Fever. Negative for: Chills Cardiovascular: Negative for: Chest Pain Respiratory: Negative for: Shortness of Breath Gastrointestinal: Positive for: Nausea, Vomiting, Diarrhea Neurological: Negative for: Weakness, Numbness, Headache, Dizziness Physical Exam - Physical Exam Appears: Non-toxic, No Acute Distress Skin: Warm, Dry, No Rash Head: Atraumatic, Normacephalic Eye(s): bilateral: Other (ANICTERIC) Nose: Normal Oral Mucosa: Moist Lips: Normal Appearing Cardiovascular: Rhythm Regular, No Murmur Respiratory: Normal Breath Sounds, No Accessory Muscle Use Gastrointestinal/Abdominal: Soft, Tenderness (RUQ, EPIG), No Guarding, No Rebound Extremity: Normal ROM Neurological/Psych: Oriented x3, Normal Speech ED Course And Treatment - Laboratory Results Result Diagrams: 08/02/17 17:21 08/02/17 17:21 O2 Sat by Pulse Oximetry: 100 (RA) Progress - Re-Evaluation Re-evaluation Note: 08/02/17 18:54 D/W DR GINA HUDSON DIRECTOR OF BILLING AWARE OF ER FINDINGS. REFUSING ADMISSION @ THIS TIME, RECOMMENDS PO TRIAL DC IF TOLERATING. OUTPT FU LFTS - Data Reviewed Data Reviewed: Lab, Diagnostic imaging, Old records Disposition - Disposition Disposition Time: 19:00 Condition: STABLE Forms: [facility] [facility] (Hungarian) - Clinical Impression Clinical Impression: Nausea, Vomiting, Diarrhea, Elevated liver function tests - Scribe Statement The provider has reviewed the documentation as recorded by the Scribe (Rafael Cobb) All medical record entries made by the Scribe were at my direction and personally dictated by me. I have reviewed the chart and agree that the record accurately reflects my personal performance of the history, physical exam, medical decision making, and the department course for this patient. I have also personally directed, reviewed, and agree with the discharge instructions and disposition. Physician Patient Turnover Patient Signed Over To: Suellen Moon Handoff Comments: FU PO TRIAL, REASSESS
[2017-08-02] MEDS ORDERED: Sodium Chloride 0.9% 1,000 ML IV ONE (17:35)
[2017-08-02 17:36] LABS: SQUAMOUS EPITHIAL 16 /hpf (0-5)
[2017-08-02 17:37] LABS: ALBUMIN 4.5 g/dL (3.5-5.0); CALCIUM 8.9 mg/dl (8.6-10.4); GFR AFRICAN-AMERICAN > 60; GFR NON-AFRICAN AMERICAN > 60; LIPASE 72 U/L (23-300)
[2017-08-02 17:42] LABS: URINE BILIRUBIN MODERATE (NEGATIVE); URINE BLOOD MODERATE (NEGATIVE); URINE CLARITY CLEAR (Clear); URINE COLOR YELLOW (YELLOW); URINE GLUCOSE (UA) NEGATIVE (Normal); URINE LEUKOCYTE ESTERASE NEGATIVE Leu/uL (Negative); URINE NITRATE NEGATIVE (NEGATIVE); URINE PROTEIN 30 mg/dL (NEGATIVE)
[2017-08-02 17:44] LABS: ALT/SGPT 65 U/L (9-52); AST/SGOT 107 U/L (14-36); BLOOD UREA NITROGEN 9 mg/dL (7-17)
[2017-08-02] MEDS ORDERED: Sodium Chloride 0.9% 1,000 ML ONE (18:08)
[2017-08-02 19:48] VITALS: BP 152/110; PULSE 87; RESP 18; TEMP 98.7; O2SAT 99
== END 2017-08-02 20:14 | disposition home or self-care (01) ==
LOC: C.ER 15:47
DX: R11.2 Nausea with vomiting, unspecified (principal); R19.7 Diarrhea, unspecified; R79.89 Other specified abnormal findings of blood chemistry
CPT/HCPCS: 80053; 81001; 82140; 83690; 84703; 85025; 96372; 96374; 96375; 99285; J0500; J1885; J2405; J7040

== ENCOUNTER 2017-09-09 13:50 | Inpatient (IN) | payer OTHER ==
[2017-09-09 14:05] VITALS: BMI 30.2
[2017-09-09] MEDS ORDERED: Sodium Chloride 0.9% 1,000 ML IV ONE (15:55)
--- NOTE | 2017-09-09 16:02 | C.PDOC ---
History Of Present Illness 32yo female with history of anxiety and alcohol abuse, presents to ER with complaints of left hip pain, which started after she slipped and fell 2 days ago. Patient states she has been bed bound since the fall and her boyfriend who has been taking care of her states she "cannot walk at all." Patient has not taken any medications for her pain but states she still drinks 1-2 cups, approximately 12-16 oz in size or rum. She has no other complaints. Time Seen by Provider: 09/09/17 13:57 Chief Complaint (Nursing): Hip Pain History Per: Patient History/Exam Limitations: no limitations Onset/Duration Of Symptoms: Days (2) Current Symptoms Are (Timing): Still Present Additional History Per: Patient - Hip Description Of Injury: Fell Currently Unable To: Bear Weight Past Medical History Reviewed: Historical Data, Nursing Documentation, Vital Signs Vital Signs: Last Vital Signs Temp 98.7 F 09/09/17 23:55 Pulse 96 H 09/09/17 23:55 Resp 20 09/09/17 23:55 BP 127/78 09/09/17 23:55 Pulse Ox 99 09/09/17 23:55 - Medical History PMH: Anxiety, Asthma, HTN, Seizures Denies: Diabetes, Hepatitis, HIV, Chronic Kidney Disease, Sexually Transmitted Disease - [facility] Procedures DETOXIFICATION SERVICES FOR SUBSTANCE ABUSE TREATMENT (11/09/15) DRAINAGE OF RIGHT PLEURAL CAVITY, PERCUTANEOUS APPROACH (11/06/16) INSERTION OF INFUSION DEV INTO SUP VENA CAVA, PERC APPROACH (11/06/16) Family History: States: Unknown Family Hx - Social History Hx Alcohol Use: Yes Hx Substance Use: No - Immunization History Hx Tetanus Toxoid Vaccination: No Hx Influenza Vaccination: No Hx Pneumococcal Vaccination: No Review Of Systems Except As Marked, All Systems Reviewed And Found Negative. Musculoskeletal: Positive for: Other (hip pain) Neurological: Negative for: Weakness, Numbness Physical Exam - Physical Exam Appears: Non-toxic Skin: Normal Color, Warm, Dry Head: Normacephalic Eye(s): bilateral: Normal Inspection Nose: Normal Oral Mucosa: Moist Neck: Normal ROM, Supple Chest: Symmetrical Cardiovascular: Rhythm Regular Respiratory: Normal Breath Sounds Extremity: No Normal ROM, Tenderness (tenderness to palpation of left hip; pain with ROM of left leg.), No Deformity, Other (no shortening or deformity of hip) Neurological/Psych: Oriented x3 ED Course And Treatment - Laboratory Results Result Diagrams: 09/09/17 16:25 09/09/17 16:25 Lab Interpretation: Abnormal (UA neg, tox + THC) Urine POC: Negative O2 Sat by Pulse Oximetry: 99 (RA) Pulse Ox Interpretation: Normal - Other Rad L hip X-Ray: Interpreted by Me (+ femoral neck fx, no pelvic fx) Progress Note: initially pt declined narcotics and took > 2 hours to give urine sample. When hip fracture noted, mophine ordered. Reevaluation Time: 17:30 Reassessment Condition: Improved - Physician Consult Information Outcome Of Conversation: 1730: d/w Dr. Brigitte Hassan- Medicine [employer], ok to admit. 1730: Dr. Jackson and Reza, Ortho, aware. Medical Decision Making Medical Decision Making: Impression: left hip pain s/p fall Plan: -- Labs -- Toradol 60 mg IM -- IV Fluids -- XR left hip Time: 1723 XR reviewed by provider, + left hip fracture. Alcohol abuse-ongoing. Drinking 2 glasses of 10 ounces each of rum daily. Consider [facility] protocol and observant for DT's as inpatient. L hip fx: femoral neck from slip and fall 2 days ago. Ortho aware. Disposition Doctor Will See Patient In The: Hospital Counseled Patient/Family Regarding: Studies Performed, Diagnosis - Disposition Disposition: HOSPITALIZED Disposition Time: 17:32 Condition: GOOD - Clinical Impression Clinical Impression: Hip fracture, left, Alcohol abuse - Scribe Statement The provider has reviewed the documentation as recorded by the Scribe (Bree Ospina) Provider Attestation: All medical record entries made by the Scribe were at my direction and personally dictated by me. I have reviewed the chart and agree that the record accurately reflects my personal performance of the history, physical exam, medical decision making, and the department course for this patient. I have also personally directed, reviewed, and agree with the discharge instructions and disposition.
[2017-09-09 16:28] LABS: BASO % 0.7 % (0.0-2.0); EOS % 0.1 % (0.0-4.0); LYMPH # 1.2 K/uL (1.0-4.3); LYMPH % 18.3 % (20.0-40.0); MEAN CELL VOLUME 92.8 fL (81.0-99.0); MEAN CORPUSCULAR HEMOGLOBIN 31.6 pg (27.0-31.0); MEAN PLATELET VOLUME 7.9 fL (7.2-11.7); MONO # 0.5 K/uL (0.0-0.8); MONO % 7.7 % (0.0-10.0); NEUT % 73.2 % (50.0-75.0); RBC 3.47 Mil/uL (3.80-5.20); RED CELL DISTRIBUTION WIDTH 15.1 % (11.5-14.5); WHITE BLOOD COUNT 6.8 K/uL (4.8-10.8)
[2017-09-09 16:42] LABS: ALBUMIN 3.9 g/dL (3.5-5.0); ALT/SGPT 40 U/L (9-52); AST/SGOT 40 U/L (14-36); BLOOD UREA NITROGEN 10 mg/dL (7-17); CALCIUM 7.9 mg/dl (8.6-10.4); GFR AFRICAN-AMERICAN > 60; GFR NON-AFRICAN AMERICAN > 60
[2017-09-09 17:09] LABS: HCG,QUALITATIVE URINE NEGATIVE (NEGATIVE)
[2017-09-09 17:13] LABS: SQUAMOUS EPITHIAL 11 /hpf (0-5); URINE BACTERIA OCC (<OCC); URINE BILIRUBIN NEGATIVE (NEGATIVE); URINE BLOOD 1+ (NEGATIVE); URINE CLARITY Hazy (Clear); URINE COLOR Amber (YELLOW); URINE GLUCOSE (UA) NORMAL (Normal); URINE LEUKOCYTE ESTERASE TRACE Leu/uL (Negative); URINE PROTEIN 1+ mg/dL (NEGATIVE)
[2017-09-09 17:24] LABS: BARBITURATES, UR NEGATIVE (NEGATIVE); BENZODIAZEPINES, UR NEGATIVE (NEGATIVE); OPIATES, UR NEGATIVE (NEGATIVE); PHENCYCLIDINE, UR NEGATIVE (NEGATIVE)
--- NOTE | 2017-09-09 17:32 | RAD ---
HISTORY: FALL COMPARISON: Chest x-ray performed 04/23/17 TECHNIQUE: Chest, one view. FINDINGS: Examination limited by habitus. LUNGS: No focal consolidation. Tiny scattered calcified granulomas versus prominent vessels on end. Please note that chest x-ray has limited sensitivity for the detection of pulmonary masses. PLEURA: No significant pleural effusion identified. No definite pneumothorax . CARDIOVASCULAR: Heart size appears top normal. OSSEOUS STRUCTURES: No acute osseous abnormality identified. VISUALIZED UPPER ABDOMEN: Unremarkable. OTHER FINDINGS: None. IMPRESSION: No acute findings identified. See above.
--- NOTE | 2017-09-09 17:34 | RAD ---
Indication: L hip pain, slip fall 2 days ago Left hip with pelvis radiographs Comparison: None Findings: Limited study. Comminuted displaced fracture of the left femur, intratrochanteric region. Soft tissue swelling. Sacroiliac joints appear intact. Pelvic calcifications, likely phleboliths. Mild constipation. No evidence of radiopaque foreign body. Impression: Comminuted displaced fracture of the left femur, intratrochanteric region. Associated soft tissue swelling.
[2017-09-09] MEDS ORDERED: Morphine 4 MG/ML VIAL ONE (19:07)
--- NOTE | 2017-09-09 19:45 | CT ---
EXAM: CT Left Lower Extremity Without Intravenous Contrast, Hip EXAM DATE/TIME: 09/09/2017 5:49 PM CLINICAL HISTORY: 32 years old, female; Injury or trauma; Fall; Initial encounter; Fracture, traumatic; Displaced; Hip; Left; Additional info: L femoral neck FX TECHNIQUE: Axial computed tomography images of the left hip without intravenous contrast. All CT scans at this facility use one or more dose reduction techniques, viz.: automated exposure control; ma/kV adjustment per patient size (including targeted exams where dose is matched to indication; i.e. head); or iterative reconstruction technique. Coronal and sagittal reformatted images were created and reviewed. COMPARISON: No relevant prior studies available. FINDINGS: BONES/JOINTS: Acute fracture of the left proximal femur, intertrochanteric in location. This is linear in configuration and extends along the intertrochanteric line. It is significantly displaced, with up to 3 cm anterior displacement of the distal fracture fragment relative to the proximal fracture fragment, and is mildly comminuted. There is a small 1 cm medially and inferiorly displaced lesser trochanteric fracture fragment, image 82/series 601. No additional acute fractures seen. No evidence of acute dislocation. SOFT TISSUES: Diffuse soft tissue swelling. No evidence of soft tissue hematoma. IMPRESSION: - Acute, displaced intertrochanteric fracture of the left proximal femur. Please see above for a full description. - See above for remaining findings.
[2017-09-09] MEDS ORDERED: Albuterol HFA 90 mcg/actuation (8 g) IH PRN (22:57)
--- NOTE | 2017-09-09 22:57 | CP.PCM.HP ---
Present on Admission - Present on Admission Any Indicators Present on Admission: No Past Patient History - Infectious Disease Hx of Infectious Diseases: None - Past Medical History & Family History Past Medical History?: Yes - Past Social History Smoking Status: Never Smoked - CARDIAC Hx Hypertension: Yes - PULMONARY Hx Asthma: Yes - NEUROLOGICAL Hx Seizures: Yes - HEENT Hx HEENT Problems: No - RENAL Hx Chronic Kidney Disease: No - ENDOCRINE/METABOLIC Hx Endocrine Disorders: No - HEMATOLOGICAL/ONCOLOGICAL Hx Human Immunodeficiency Virus (HIV): No - INTEGUMENTARY Hx Dermatological Problems: Yes Hx Eczema: Yes - MUSCULOSKELETAL/RHEUMATOLOGICAL Hx Musculoskeletal Disorders: Yes Hx Falls: Yes Hx Herniated Disk: Yes (2 weeks ago) - GASTROINTESTINAL Hx Gastrointestinal Disorders: Yes Hx Liver Failure: (liver problems) Other/Comment: Liver rupture Jul 2016 - GENITOURINARY/GYNECOLOGICAL Hx Sexually Transmitted Disorders: No - PSYCHIATRIC Hx Anxiety: Yes Hx Substance Use: No - SURGICAL HISTORY Hx Surgeries: Yes Hx Section: Yes Hx Orthopedic Surgery: Yes (RIGHT ANKLE) Other/Comment: 2 plats 10 screws to (R) ankle 2013 - ANESTHESIA Hx Anesthesia: Yes Hx Anesthesia Reactions: No Hx Malignant Hyperthermia: No Meds Allergies/Adverse Reactions: Allergies Allergy/AdvReac Type Severity Reaction Status Date / Time No Known Allergies Allergy Verified 08/02/17 16:13 Results - Vital Signs Recent Vital Signs: Last Vital Signs Temp 98.2 F 09/09/17 22:32 Pulse 97 H 09/09/17 22:32 Resp 20 09/09/17 22:32 BP 152/91 H 09/09/17 22:32 Pulse Ox 96 09/09/17 22:32 - Labs Result Diagrams: 09/11/17 06:14 09/11/17 06:14 Labs: Laboratory Results - last 24 hr 09/09/17 09/09/17 09/09/17 16:25 16:25 16:25 WBC 6.8 RBC 3.47 L Hgb 11.0 D Hct 32.2 L MCV 92.8 MCH 31.6 H MCHC 34.0 RDW 15.1 H Plt Count 205 MPV 7.9 Neut % (Auto) 73.2 Lymph % (Auto) 18.3 L [place] % (Auto) 7.7 Eos % (Auto) 0.1 Baso % (Auto) 0.7 Neut # (Auto) 5.0 Lymph # (Auto) 1.2 [place] # (Auto) 0.5 Eos # (Auto) 0.0 Baso # (Auto) 0.0 Sodium 139 Potassium 3.3 L Chloride 98 Carbon Dioxide 27 Anion Gap 18 BUN 10 Creatinine 0.5 L Est GFR ( Amer) > 60 Est GFR (Non-Af Amer) > 60 Random Glucose 100 Calcium 7.9 L Total Bilirubin 1.2 AST 40 H D ALT 40 Alkaline Phosphatase 142 H Ammonia Total Protein 7.7 Albumin 3.9 Globulin 3.8 Albumin/Globulin Ratio 1.0 Beta HCG, Quant < 2.39 Urine Color Urine Clarity Urine pH Ur Specific [place] Urine Protein Urine Glucose (UA) Urine Ketones Urine Blood Urine Nitrate Urine Bilirubin Urine Urobilinogen Ur Leukocyte Esterase Urine WBC (Auto) Urine RBC (Auto) Ur Squamous Epith Cells Urine Bacteria Urine HCG, Qual Urine Opiates Screen Urine Methadone Screen Ur Barbiturates Screen Ur Phencyclidine Scrn Ur Amphetamines Screen U Benzodiazepines Scrn U Oth Cocaine Metabols U Cannabinoids Screen Alcohol, Quantitative < 10 09/09/17 09/09/17 09/09/17 17:03 17:03 18:13 WBC RBC Hgb Hct MCV MCH MCHC RDW Plt Count MPV Neut % (Auto) Lymph % (Auto) [place] % (Auto) Eos % (Auto) Baso % (Auto) Neut # (Auto) Lymph # (Auto) [place] # (Auto) Eos # (Auto) Baso # (Auto) Sodium Potassium Chloride Carbon Dioxide Anion Gap BUN Creatinine Est GFR ( Amer) Est GFR (Non-Af Amer) Random Glucose Calcium Total Bilirubin AST ALT Alkaline Phosphatase Ammonia 67 H D Total Protein Albumin Globulin Albumin/Globulin Ratio Beta HCG, Quant Urine Color [place] Urine Clarity Hazy Urine pH 6.0 Ur Specific [place] 1.017 Urine Protein 1+ H Urine Glucose (UA) Normal Urine Ketones Negative Urine Blood 1+ H Urine Nitrate Negative Urine Bilirubin Negative Urine Urobilinogen 4.0 H Ur Leukocyte Esterase Trace H Urine WBC (Auto) 9 H Urine RBC (Auto) 11 H Ur Squamous Epith Cells 11 H Urine Bacteria Occ H Urine HCG, Qual Negative Urine Opiates Screen Negative Urine Methadone Screen Negative Ur Barbiturates Screen Negative Ur Phencyclidine Scrn Negative Ur Amphetamines Screen Negative U Benzodiazepines Scrn Negative U Oth Cocaine Metabols Negative U Cannabinoids Screen Positive H Alcohol, Quantitative Assessment & Plan (1) Alcohol abuse Status: Acute (2) Fracture, intertrochanteric, left femur Status: Acute (3) Hip fracture, left Status: Acute (4) Abdominal pain Status: Acute (5) Anemia Status: Acute (6) Asthmatic bronchitis Status: Acute (7) Benzodiazepine abuse Status: Acute (8) CHF (congestive heart failure) Status: Acute (9) Coagulopathy Status: Acute (10) Diarrhea Status: Acute (11) Elevated liver function tests Status: Acute (12) Hepatic encephalopathy Status: Acute (13) Icterus Status: Acute (14) Jaundice Status: Acute (15) Leukocytosis Status: Acute (16) Nausea Status: Acute (17) Pleural effusion Status: Acute (18) Prophylactic measure Status: Acute (19) Psoriasis (a type of skin inflammation) Status: Acute (20) Seizure Status: Acute (21) Sepsis Status: Acute (22) Vomiting Status: Acute (23) Alcohol dependence Status: Chronic (24) Anxiety Status: Chronic (25) Asthma Status: Chronic (26) Back pain Status: Chronic (27) Liver failure Status: Chronic - Assessment and Plan (Free Text) Plan: Cardiology clearance Pain medications Orthopedic follow-up Possible surgery tomorrow EKG now Continue as ordered Spoke to the family who is bedside along with the patient
[2017-09-10] MEDS: Saccharomyces Boulardi 250 mg Cap PO SCH ×2 (09:12→18:03)
[2017-09-10] MEDS ORDERED: Enoxaparin 40 mg Syringe SC SCH (10:00)
[2017-09-10] MEDS ORDERED: Albuterol HFA 90 mcg/actuation (8 g) IH SCH (10:00)
[2017-09-10 11:31] LABS: HEMOGLOBIN 10.1 g/dL (11.0-16.0); MEAN CELL VOLUME 94.5 fL (81.0-99.0); MEAN CORPUSCULAR HEMOGLOBIN 32.4 pg (27.0-31.0); MEAN CORPUSCULAR HGB CONC 34.3 g/dL (33.0-37.0); MEAN PLATELET VOLUME 8.5 fL (7.2-11.7); RBC 3.12 Mil/uL (3.80-5.20)
[2017-09-10 11:32] LABS: INR 1.2; PROTHROMBIN TIME 13.6 SECONDS (9.7-12.2)
[2017-09-10 11:35] LABS: WHITE BLOOD COUNT 3.2 K/uL (4.8-10.8)
[2017-09-10 11:38] LABS: ALB/GLOB RATIO 1.1 (1.0-2.1); ALBUMIN 3.6 g/dL (3.5-5.0); ALT/SGPT 32 U/L (9-52); AST/SGOT 48 U/L (14-36); BLOOD UREA NITROGEN 11 mg/dL (7-17); CALCIUM 7.9 mg/dl (8.6-10.4); GFR AFRICAN-AMERICAN > 60; GFR NON-AFRICAN AMERICAN > 60
[2017-09-10] MEDS: HYDROmorphone 0.5 mg/0.5 ml ISec IVP PRN ×3 (13:14→22:23)
--- NOTE | 2017-09-10 14:13 | CP.PCM.CON ---
History of Present Illness - History of Present Illness History of Present Illness: Orthopedic consultation Dr. Cobb 32F slipped and fell on ice, complains of left hip pain and inability to walk after fall. Patient found to have left hip fracture, risks, benefits, alt of ORIF vs IM nail explained to patient who verbalized understanding and consented to procedure. Denies headache, denies numbness/tingling, denies pain in other extremities, CP/ SOB/dizziness/n/v. PMH: HTN Review of Systems - Review of Systems All systems: reviewed and no additional remarkable complaints except - Musculoskeletal Musculoskeletal: As Per HPI Past Patient History - Infectious Disease Hx of Infectious Diseases: None - Past Medical History & Family History Past Medical History?: Yes Past Family History: Reviewed and not pertinent - Past Social History Smoking Status: Never Smoked - CARDIAC Hx Hypertension: Yes - PULMONARY Hx Asthma: Yes - NEUROLOGICAL Hx Seizures: Yes - HEENT Hx HEENT Problems: No - RENAL Hx Chronic Kidney Disease: No - ENDOCRINE/METABOLIC Hx Endocrine Disorders: No - HEMATOLOGICAL/ONCOLOGICAL Hx Human Immunodeficiency Virus (HIV): No - INTEGUMENTARY Hx Dermatological Problems: Yes Hx Eczema: Yes - MUSCULOSKELETAL/RHEUMATOLOGICAL Hx Falls: Yes - GASTROINTESTINAL Hx Gastrointestinal Disorders: Yes Hx Liver Failure: (liver problems) Other/Comment: Liver rupture Jul 2016 - GENITOURINARY/GYNECOLOGICAL Hx Sexually Transmitted Disorders: No - PSYCHIATRIC Hx Anxiety: Yes Hx Substance Use: No - SURGICAL HISTORY Hx Surgeries: Yes Hx Section: Yes Hx Orthopedic Surgery: Yes (RIGHT ANKLE) Other/Comment: 2 plats 10 screws to (R) ankle 2013 - ANESTHESIA Hx Anesthesia: Yes Hx Anesthesia Reactions: No Hx Malignant Hyperthermia: No Meds Allergies/Adverse Reactions: Allergies Allergy/AdvReac Type Severity Reaction Status Date / Time No Known Allergies Allergy Verified 08/02/17 16:13 - Medications Medications: Current Medications Albuterol (Ventolin Hfa 90 Mcg/Actuation (8 G)) 1 puff IH Q4H PRN PRN Reason: Shortness of Breath Cyclobenzaprine HCl (Flexeril) 5 mg PO TID PRN PRN Reason: Muscle spasm Enoxaparin Sodium (Lovenox) 40 mg SC DAILY [facility] Folic Acid (Folic Acid) 1 mg PO DAILY [facility] Last Admin: 09/10/17 09:13 Dose: 1 mg Gabapentin (Neurontin) 300 mg PO TID [facility] Last Admin: 09/10/17 13:13 Dose: 300 mg Hydromorphone HCl (Dilaudid) 0.5 mg IVP Q4H PRN PRN Reason: Pain, moderate (4-7) Last Admin: 09/10/17 13:14 Dose: 0.5 mg Morphine Sulfate (Morphine) 6 mg IVP Q8 PRN PRN Reason: Pain, severe (8-10) Last Admin: 09/10/17 06:53 Dose: 6 mg Oxycodone/Acetaminophen (Percocet 5/325 Mg Tab) 2 tab PO Q4H PRN PRN Reason: Pain, Mild (1-3) Stop: 09/13/17 12:40 Propranolol HCl (Inderal) 10 mg PO BID [facility] Last Admin: 09/10/17 10:52 Dose: 10 mg Saccharomyces Boulardii (Florastor) 250 mg PO BID [facility] Last Admin: 09/10/17 09:12 Dose: 250 mg Thiamine HCl (Vitamin B1 Tab) 100 mg PO DAILY [facility] Last Admin: 09/10/17 09:13 Dose: 100 mg Physical Exam - Constitutional Appears: Well, No Acute Distress - Head Exam Head Exam: ATRAUMATIC - Neck Exam Neck exam: Positive for: Full Rom, Normal Inspection - Respiratory Exam Respiratory Exam: NORMAL BREATHING PATTERN - Cardiovascular Exam Additional comments: +DP/PT pulses - Expanded Lower Extremities Exam Left Hip exam: shortening, tenderness Knee exam: normal inspection Ankle exam: FULL ROM, NORMAL INSPECTION Foot/Toe exam: full ROM - Back Exam Back exam: NORMAL INSPECTION - Neurological Exam Neurological exam: Alert, Oriented x3 - Psychiatric Exam Psychiatric exam: Normal Affect, Normal Mood - Skin Skin Exam: Dry, Intact, Normal Color, Warm Results - Vital Signs Recent Vital Signs: Last Vital Signs Temp 98.9 F 09/10/17 08:47 Pulse 89 09/10/17 08:47 Resp 20 09/10/17 08:47 BP 127/83 09/10/17 08:47 Pulse Ox 100 09/10/17 08:47 - Labs Result Diagrams: 09/10/17 11:15 09/10/17 11:15 Labs: Laboratory Results - last 24 hr 09/09/17 09/09/17 09/09/17 16:25 16:25 16:25 WBC 6.8 RBC 3.47 L Hgb 11.0 D Hct 32.2 L MCV 92.8 MCH 31.6 H MCHC 34.0 RDW 15.1 H Plt Count 205 MPV 7.9 Neut % (Auto) 73.2 Lymph % (Auto) 18.3 L [place] % (Auto) 7.7 Eos % (Auto) 0.1 Baso % (Auto) 0.7 Neut # (Auto) 5.0 Lymph # (Auto) 1.2 [place] # (Auto) 0.5 Eos # (Auto) 0.0 Baso # (Auto) 0.0 PT INR APTT Sodium 139 Potassium 3.3 L Chloride 98 Carbon Dioxide 27 Anion Gap 18 BUN 10 Creatinine 0.5 L Est GFR ( Amer) > 60 Est GFR (Non-Af Amer) > 60 Random Glucose 100 Calcium 7.9 L Total Bilirubin 1.2 AST 40 H D ALT 40 Alkaline Phosphatase 142 H Ammonia Total Protein 7.7 Albumin 3.9 Globulin 3.8 Albumin/Globulin Ratio 1.0 Beta HCG, Quant < 2.39 Urine Color Urine Clarity Urine pH Ur Specific [place] Urine Protein Urine Glucose (UA) Urine Ketones Urine Blood Urine Nitrate Urine Bilirubin Urine Urobilinogen Ur Leukocyte Esterase Urine WBC (Auto) Urine RBC (Auto) Ur Squamous Epith Cells Urine Bacteria Urine HCG, Qual Urine Opiates Screen Urine Methadone Screen Ur Barbiturates Screen Ur Phencyclidine Scrn Ur Amphetamines Screen U Benzodiazepines Scrn U Oth Cocaine Metabols U Cannabinoids Screen Alcohol, Quantitative < 10 Blood Type Antibody Screen 09/09/17 09/09/17 09/09/17 17:03 17:03 18:13 WBC RBC Hgb Hct MCV MCH MCHC RDW Plt Count MPV Neut % (Auto) Lymph % (Auto) [place] % (Auto) Eos % (Auto) Baso % (Auto) Neut # (Auto) Lymph # (Auto) [place] # (Auto) Eos # (Auto) Baso # (Auto) PT INR APTT Sodium Potassium Chloride Carbon Dioxide Anion Gap BUN Creatinine Est GFR ( Amer) Est GFR (Non-Af Amer) Random Glucose Calcium Total Bilirubin AST ALT Alkaline Phosphatase Ammonia 67 H D Total Protein Albumin Globulin Albumin/Globulin Ratio Beta HCG, Quant Urine Color [place] Urine Clarity Hazy Urine pH 6.0 Ur Specific [place] 1.017 Urine Protein 1+ H Urine Glucose (UA) Normal Urine Ketones Negative Urine Blood 1+ H Urine Nitrate Negative Urine Bilirubin Negative Urine Urobilinogen 4.0 H Ur Leukocyte Esterase Trace H Urine WBC (Auto) 9 H Urine RBC (Auto) 11 H Ur Squamous Epith Cells 11 H Urine Bacteria Occ H Urine HCG, Qual Negative Urine Opiates Screen Negative Urine Methadone Screen Negative Ur Barbiturates Screen Negative Ur Phencyclidine Scrn Negative Ur Amphetamines Screen Negative U Benzodiazepines Scrn Negative U Oth Cocaine Metabols Negative U Cannabinoids Screen Positive H Alcohol, Quantitative Blood Type Antibody Screen 09/10/17 09/10/17 09/10/17 11:15 11:15 11:15 WBC RBC Hgb Hct MCV MCH MCHC RDW Plt Count MPV Neut % (Auto) Lymph % (Auto) [place] % (Auto) Eos % (Auto) Baso % (Auto) Neut # (Auto) Lymph # (Auto) [place] # (Auto) Eos # (Auto) Baso # (Auto) PT 13.6 H INR 1.2 APTT 31 Sodium 140 Potassium 3.2 L Chloride 99 Carbon Dioxide 28 Anion Gap 16 BUN 11 Creatinine 0.5 L Est GFR ( Amer) > 60 Est GFR (Non-Af Amer) > 60 Random Glucose 79 Calcium 7.9 L Total Bilirubin 1.2 AST 48 H ALT 32 Alkaline Phosphatase 125 Ammonia Total Protein 6.8 Albumin 3.6 Globulin 3.3 Albumin/Globulin Ratio 1.1 Beta HCG, Quant Urine Color Urine Clarity Urine pH Ur Specific [place] Urine Protein Urine Glucose (UA) Urine Ketones Urine Blood Urine Nitrate Urine Bilirubin Urine Urobilinogen Ur Leukocyte Esterase Urine WBC (Auto) Urine RBC (Auto) Ur Squamous Epith Cells Urine Bacteria Urine HCG, Qual Urine Opiates Screen Urine Methadone Screen Ur Barbiturates Screen Ur Phencyclidine Scrn Ur Amphetamines Screen U Benzodiazepines Scrn U Oth Cocaine Metabols U Cannabinoids Screen Alcohol, Quantitative Blood Type O POSITIVE Antibody Screen Negative 09/10/17 11:15 WBC 3.2 L D RBC 3.12 L Hgb 10.1 L Hct 29.5 L MCV 94.5 MCH 32.4 H MCHC 34.3 RDW 15.0 H Plt Count 159 MPV 8.5 Neut % (Auto) Lymph % (Auto) [place] % (Auto) Eos % (Auto) Baso % (Auto) Neut # (Auto) Lymph # (Auto) [place] # (Auto) Eos # (Auto) Baso # (Auto) PT INR APTT Sodium Potassium Chloride Carbon Dioxide Anion Gap BUN Creatinine Est GFR ( Amer) Est GFR (Non-Af Amer) Random Glucose Calcium Total Bilirubin AST ALT Alkaline Phosphatase Ammonia Total Protein Albumin Globulin Albumin/Globulin Ratio Beta HCG, Quant Urine Color Urine Clarity Urine pH Ur Specific [place] Urine Protein Urine Glucose (UA) Urine Ketones Urine Blood Urine Nitrate Urine Bilirubin Urine Urobilinogen Ur Leukocyte Esterase Urine WBC (Auto) Urine RBC (Auto) Ur Squamous Epith Cells Urine Bacteria Urine HCG, Qual Urine Opiates Screen Urine Methadone Screen Ur Barbiturates Screen Ur Phencyclidine Scrn Ur Amphetamines Screen U Benzodiazepines Scrn U Oth Cocaine Metabols U Cannabinoids Screen Alcohol, Quantitative Blood Type Antibody Screen - Impressions Impression: Patient Name / ID : THAO SUE / [id number] Exam Date : 09/09/2017 18:29:29 ( Approved ) Study Comment : Sex / Age : F / 32Y Creator : Hayley Mckeon MD Dictator : Tower Director : Loss Prevention Representative : Hayley Mckeon MD Approver2 : Report Date : 09/09/2017 19:45:00 My Comment : [facility] Division of Radiology [address] [place] [address] Tel. no. Patient Name: LINETTE OSUNA Pt. Address: [address] [place] [address] Med. Rec #: [id number] [place] [address]: Bhupinder Gonzalez MD [place] [facility] [place] 1985 [place] Age: 32 Order #: [id number] Reason for exam: L femoral neck fx CT Scan HIP WITHOUT CONTRAST LEFT Exam Date: 09/09/17 This imaging exam was performed at [facility] EXAM: CT Left Lower Extremity Without Intravenous Contrast, Hip EXAM DATE/TIME: 09/09/2017 5:49 PM CLINICAL HISTORY: 32 years old, female; Injury or trauma; Fall; Initial encounter; Fracture, traumatic; Displaced; Hip; Left; Additional info: L femoral neck FX TECHNIQUE: Axial computed tomography images of the left hip without intravenous contrast. All CT scans at this facility use one or more dose reduction techniques, viz.: automated exposure control; ma/kV adjustment per patient size (including targeted exams where dose is matched to indication; i.e. head); or iterative reconstruction technique. Coronal and sagittal reformatted images were created and reviewed. COMPARISON: No relevant prior studies available. FINDINGS: BONES/JOINTS: Acute fracture of the left proximal femur, intertrochanteric in location. This is linear in configuration and extends along the intertrochanteric line. It is significantly displaced, with up to 3 cm anterior displacement of the distal fracture fragment relative to the proximal fracture fragment, and is mildly comminuted. There is a small 1 cm medially and inferiorly displaced lesser trochanteric fracture fragment, image 82/series 601. No additional acute fractures seen. No evidence of acute dislocation. SOFT TISSUES: Diffuse soft tissue swelling. No evidence of soft tissue hematoma. IMPRESSION: - Acute, displaced intertrochanteric fracture of the left proximal femur. Please see above for a full description. - See above for remaining findings. Dictated By: Hayley Mckeon MD Dictated Date/Time: 09/09/171944 Signed By: Hayley Mckeon MD Date Signed: 1945 Transcribed By: [facility] Transcribe Date/Time : 09/09/171944 [facility] Assessment & Plan (1) Fracture, intertrochanteric, left femur Assessment and Plan: for ORIF 09/11 labs reviewed [employer] p mN T&C supp K traction views appreciated and reviewed with Dr. Cobb pain not controlled, pain medication adjusted SCDs IS d/w Dr. Cobb, agrees with above Status: Acute
[2017-09-10] MEDS ORDERED: Potassium Chloride 20 mEq ER Tab PO ONE ×2 (14:30→20:20)
[2017-09-10] MEDS: Oxycodone/Acetaminophen 5/325 mg Tab PO PRN ×2 (14:36→21:19)
--- NOTE | 2017-09-10 16:34 | RAD ---
PROCEDURE: HISTORY: one view left hip while in bucks traction COMPARISON: CT left hip 09/09/2017 TECHNIQUE: Single AP view, portable FINDINGS: Mildly displaced intertrochanteric fracture. There is a significantly displaced fragment arising from the lesser trochanter. No other fracture identified. IMPRESSION: Limited examination. Displaced intertrochanteric fracture of the left hip.
--- NOTE | 2017-09-10 18:04 | CP.PCM.PN ---
Subjective - Date & Time of Evaluation Date of Evaluation: 09/10/17 Time of Evaluation: 12:50 - Subjective Subjective: clinically same Objective - Vital Signs/Intake and Output Vital Signs (last 24 hours): Temp Pulse Resp BP Pulse Ox 98.6 F 87 18 120/80 96 09/10/17 15:38 09/10/17 15:38 09/10/17 15:38 09/10/17 15:38 09/10/17 15:38 - Medications Medications: Current Medications Albuterol (Ventolin Hfa 90 Mcg/Actuation (8 G)) 1 puff IH Q4H PRN PRN Reason: Shortness of Breath Cyclobenzaprine HCl (Flexeril) 5 mg PO TID PRN PRN Reason: Muscle spasm Enoxaparin Sodium (Lovenox) 40 mg SC DAILY [facility] Folic Acid (Folic Acid) 1 mg PO DAILY [facility] Last Admin: 09/10/17 09:13 Dose: 1 mg Gabapentin (Neurontin) 300 mg PO TID [facility] Last Admin: 09/10/17 18:03 Dose: 300 mg Hydromorphone HCl (Dilaudid) 0.5 mg IVP Q4H PRN PRN Reason: Pain, moderate (4-7) Last Admin: 09/10/17 13:14 Dose: 0.5 mg Morphine Sulfate (Morphine) 6 mg IVP Q8 PRN PRN Reason: Pain, severe (8-10) Last Admin: 09/10/17 15:51 Dose: 6 mg Oxycodone/Acetaminophen (Percocet 5/325 Mg Tab) 2 tab PO Q4H PRN PRN Reason: Pain, Mild (1-3) Stop: 09/13/17 12:40 Last Admin: 09/10/17 14:36 Dose: 2 tab Propranolol HCl (Inderal) 10 mg PO BID [facility] Last Admin: 09/10/17 10:52 Dose: 10 mg Saccharomyces Boulardii (Florastor) 250 mg PO BID [facility] Last Admin: 09/10/17 18:03 Dose: 250 mg Thiamine HCl (Vitamin B1 Tab) 100 mg PO DAILY [facility] Last Admin: 09/10/17 09:13 Dose: 100 mg - Labs Labs: 09/10/17 11:15 09/10/17 11:15 PT 13.6 SECONDS (9.7-12.2) H 09/10/17 11:15 INR 1.2 09/10/17 11:15 APTT 31 SECONDS (21-34) 09/10/17 11:15 - Constitutional Appears: Well - Head Exam Head Exam: ATRAUMATIC, NORMAL INSPECTION, NORMOCEPHALIC - Eye Exam Eye Exam: EOMI, Normal appearance, PERRL Pupil Exam: NORMAL ACCOMODATION, PERRL - ENT Exam ENT Exam: Mucous Membranes Moist, Normal Exam - Neck Exam Neck Exam: Full ROM, Normal Inspection. absent: Lymphadenopathy - Respiratory Exam Respiratory Exam: Decreased Breath Sounds - Cardiovascular Exam Cardiovascular Exam: REGULAR RHYTHM, +S1, +S2 - GI/Abdominal Exam GI & Abdominal Exam: Soft, Diminished Bowel Sounds - Rectal Exam Rectal Exam: Deferred
[2017-09-11] MEDS: HYDROmorphone 0.5 mg/0.5 ml ISec IVP PRN ×6 (05:00→19:28)
[2017-09-11 06:29] LABS: HEMOGLOBIN 10.3 g/dL (11.0-16.0); MEAN CELL VOLUME 94.9 fL (81.0-99.0); MEAN CORPUSCULAR HEMOGLOBIN 32.2 pg (27.0-31.0); MEAN CORPUSCULAR HGB CONC 33.9 g/dL (33.0-37.0); MEAN PLATELET VOLUME 8.6 fL (7.2-11.7); RBC 3.19 Mil/uL (3.80-5.20); RED CELL DISTRIBUTION WIDTH 14.6 % (11.5-14.5); WHITE BLOOD COUNT 5.2 K/uL (4.8-10.8)
[2017-09-11 06:49] LABS: BLOOD UREA NITROGEN 16 mg/dL (7-17); CALCIUM 8.4 mg/dl (8.6-10.4); GFR AFRICAN-AMERICAN > 60; GFR NON-AFRICAN AMERICAN > 60
[2017-09-11] MEDS: Saccharomyces Boulardi 250 mg Cap PO SCH ×3 (10:41→19:32)
[2017-09-11] MEDS ORDERED: Midazolam 2 MG/2 ML VIAL ONE (12:53)
[2017-09-11] MEDS ORDERED: Propofol 10 mg/ml Inj (20 ML) ONE (12:54)
[2017-09-11] MEDS ORDERED: ceFAZolin IV 1 gm in Dextrose 2 GM/100 ML BAG IVPB ONE (13:50)
[2017-09-11] MEDS ORDERED: Neostigmine Methylsulfate 3mg/3ml Syringe IV ONE (16:14)
[2017-09-11] MEDS ORDERED: Bupivacaine HCl 0.5% PF (10 ml) Inj ONE (16:32)
--- NOTE | 2017-09-11 16:53 | CP.PCM.PN ---
Subjective - Date & Time of Evaluation Date of Evaluation: 09/11/17 Time of Evaluation: 10:40 - Subjective Subjective: clinically same Objective - Vital Signs/Intake and Output Vital Signs (last 24 hours): Temp Pulse Resp BP Pulse Ox 98.4 F 77 20 113/77 100 09/11/17 07:00 09/11/17 07:00 09/11/17 07:00 09/11/17 07:00 09/11/17 07:00 Intake and Output: 09/11/17 09/11/17 06:59 18:59 Intake Total 1110 Output Total 350 Balance 760 - Medications Medications: Current Medications Albuterol (Ventolin Hfa 90 Mcg/Actuation (8 G)) 1 puff IH Q4H PRN PRN Reason: Shortness of Breath Cyclobenzaprine HCl (Flexeril) 5 mg PO TID PRN PRN Reason: Muscle spasm Last Admin: 09/11/17 08:20 Dose: 5 mg Enoxaparin Sodium (Lovenox) 40 mg SC DAILY [facility] Folic Acid (Folic Acid) 1 mg PO DAILY [facility] Last Admin: 09/11/17 10:41 Dose: Not Given Gabapentin (Neurontin) 300 mg PO TID [facility] Last Admin: 09/11/17 13:19 Dose: Not Given Hydromorphone HCl (Dilaudid) 0.5 mg IVP Q4H PRN PRN Reason: Pain, moderate (4-7) Last Admin: 09/11/17 11:00 Dose: 0.5 mg Morphine Sulfate (Morphine) 6 mg IVP Q8 PRN PRN Reason: Pain, severe (8-10) Last Admin: 09/11/17 07:49 Dose: 6 mg Oxycodone/Acetaminophen (Percocet 5/325 Mg Tab) 2 tab PO Q4H PRN PRN Reason: Pain, Mild (1-3) Stop: 09/13/17 12:40 Last Admin: 09/10/17 21:19 Dose: 2 tab Propranolol HCl (Inderal) 10 mg PO BID [facility] Last Admin: 09/11/17 10:55 Dose: 10 mg Saccharomyces Boulardii (Florastor) 250 mg PO BID [facility] Last Admin: 09/11/17 10:41 Dose: Not Given Thiamine HCl (Vitamin B1 Tab) 100 mg PO DAILY [facility] Last Admin: 09/11/17 10:41 Dose: Not Given - Labs Labs: 09/11/17 06:14 09/11/17 06:14 PT 13.6 SECONDS (9.7-12.2) H 09/10/17 11:15 INR 1.2 09/10/17 11:15 APTT 31 SECONDS (21-34) 09/10/17 11:15 - Constitutional Appears: Well - Head Exam Head Exam: ATRAUMATIC, NORMAL INSPECTION, NORMOCEPHALIC - Eye Exam Eye Exam: EOMI, Normal appearance, PERRL Pupil Exam: NORMAL ACCOMODATION, PERRL - ENT Exam ENT Exam: Mucous Membranes Moist, Normal Exam - Neck Exam Neck Exam: Full ROM, Normal Inspection. absent: Lymphadenopathy - Respiratory Exam Respiratory Exam: Decreased Breath Sounds - Cardiovascular Exam Cardiovascular Exam: REGULAR RHYTHM, +S1, +S2 - GI/Abdominal Exam GI & Abdominal Exam: Soft, Diminished Bowel Sounds - Rectal Exam Rectal Exam: Deferred Assessment and Plan - Assessment and Plan (Free Text) Plan: Patient is n.p.o. seen in the morning spoke to dr. martinez is bedside he is going to check the echo dr. pilar cline patient is cleared for surgery today Patient for surgery On pain medications We will monitor the hemoglobin Patient is also on the Lovenox and the Percocet Continue same
--- NOTE | 2017-09-11 17:03 | PCM.SURG1 ---
Surgeon's Initial Post Op Note - Surgeon's Notes Surgeon: Pieter Cobb MD Record Clerk Salesperson: Marleni Dinero PA-C Type of Anesthesia: General Endo Anesthesia Administered By: Dr. Cormier Pre-Operative Diagnosis: Left intertrochanteric hip fx Operative Findings: same Post-Operative Diagnosis: same Operation Performed: ORIF left hip intertrochanteric hip fx (dynamic hip screw) Specimen/Specimens Removed: none Estimated Blood Loss: EBL {In ML}: 300 Blood Products Given: N/A Drains Used: No Drains Post-Op Condition: Fair Date of Surgery/Procedure: 09/11/17 Time of Surgery/Procedure: 17:03
[2017-09-11] MEDS ORDERED: HYDROmorphone 0.5 mg/0.5 ml ISec ONE (17:11)
--- NOTE | 2017-09-11 17:30 | RAD ---
PROCEDURE: HISTORY: As Above COMPARISON: None TECHNIQUE: Total continuous fluoroscopic time utilized during the procedure: 198.6 seconds. Total dose 39.97 mGy cm squared FINDINGS: Submitted images from the current procedure: 11 Please refer to the physician's notes performing the procedure. IMPRESSION: Less than 1 hour fluoroscopic time utilized during performance of the procedure
[2017-09-11] MEDS: Sodium Chloride 0.9% 1,000 ML IV SCH (19:33)
[2017-09-11] MEDS: cefOXitin 2 GM in Sodium Chloride 0.9% 100 ML IV SCH (22:04)
[2017-09-11] MEDS ORDERED: HYDROmorphone 0.5 mg/0.5 ml ISec IVP STA ×2 (22:39→22:40)
[2017-09-11] MEDS ORDERED: Albuterol HFA 90 mcg/actuation (8 g) IH PRN (22:45)
--- NOTE | 2017-09-11 23:03 | CON ---
DATE: HISTORY OF PRESENT ILLNESS: The patient is a 32-year-old female with a history of hypertension and bronchial asthma, sustained a fall on ice and left hip fracture, is being evaluated for open reduction and internal fixation today in the operating room at 1 p.m. The patient denies any prior cardiac history. Denies any chest pain. The patient attributes her fall to skidding on ice. No dizziness or syncope, and no head injury associated with the fall. The patient denies any chest pain and currently is not experiencing any asthma. SOCIAL HISTORY: The patient is not a smoker. She is an occasional drinker. She tested positive for cannabinoids at this time. REVIEW OF SYSTEMS: No nausea or vomiting. No fever or chills. PHYSICAL EXAMINATION: GENERAL: The patient is a young middle-aged female who does not appear to be in any distress. VITAL SIGNS: Blood pressure 115/67, heart rate 57, temperature 98.4, respirations 20. HEENT: Normocephalic. NECK: No JVD. CHEST: Clear. HEART: S1 and S2, regular. ABDOMEN: Soft. EXTREMITIES: No edema. LABORATORY DATA: Urine drug screen is positive for cannabinoids. Hemoglobin and hematocrit 10.3 and 30.3, white count and platelet count are within normal limits. SMA-7 is within normal limits except for creatinine of 0.6. Calcium is below normal at 8.4. EKG revealed normal sinus rhythm. Beta HCG quantitative is less than 2.39. I did review the echocardiographic study, which revealed mild septal hypokinesis with borderline ejection fraction. The measurements of the study have not been made available yet by the Department of Echo; however, my conclusion based on the view of the 2-D images. ASSESSMENT: 1. Status post fall and left hip fracture. 2. Hypertension. 3. Borderline left ventricular systolic function. 4. Improved hypokalemia. 5. Cannabinoid abuse. RECOMMENDATIONS: The patient can be maintained on Inderal 10 mg twice a day, subcutaneous Lovenox at 40 mg once a day, Neurontin 300 mg t.i.d.,thiamine 100 mg once a day. The patient can undergo her ortho surgery from the cardiac point of view with postoperative telemetry monitoring. Rigo Lorilah, MD
[2017-09-12] MEDS: HYDROmorphone 0.5 mg/0.5 ml ISec IVP PRN ×4 (02:47→23:42)
--- NOTE | 2017-09-12 03:58 | CON ---
DATE: HISTORY OF PRESENT ILLNESS: The patient is a 32-year-old female with a history of alcohol abuse. The patient had a fall after episode of drinking unknown duration. The patient was bed bound and had been taking care of by her boyfriend. The patient is seen at bedside. X-rays had shown a displaced intertrochanteric fracture with a basicervical extension into the greater trochanter. Denies pain in any of the extremity joint. The patient admits to drinking everyday on a routine basis. Denies pain in any of the extremity joint. Denies any paraesthesia or weakness. PAST MEDICAL HISTORY: Anxiety, asthma, hypertension, seizures, and alcohol abuse. IMAGING: X-rays and CT scan of the patient's left hip showing a displaced intertrochanteric fracture with a basicervical extension. ASSESSMENT AND PLAN: A 32-year-old female with left hip intertrochanteric fracture with basicervical extension. TREATMENT: I had a detail discussion with the patient and her mother at bedside. I explained the complex nature of her injury. I presented with the options of open reduction and internal fixation versus total hip replacement. I explained to the patient the fracture is high risk for malunion, nonunion, and also other risk include symptomatic hardware, need for further surgery, continued pain, stiffness, iatrogenic fracture, need for further surgery. The patient fully understands the risks and benefits and would like to proceed with the surgery today. Clem Cobb MD CORNELIUS
--- NOTE | 2017-09-12 04:10 | OP ---
PROCEDURE DATE: ATTENDING PHYSICIAN: Clem Cobb MD CUE SELECTOR: Allison Dinero PA-C PREOPERATIVE DIAGNOSIS: Left hip intertrochanteric fracture POSTOPERATIVE DIAGNOSIS: Left hip intertrochanteric fracture. PROCEDURE: Left hip close reduction and DHS screw fixation. ESTIMATED BLOOD LOSS: 200 mL. IMPLANT: Synthes 2-hole DHS plate and 5 mm DHS screw. TYPE OF ANESTHESIA: General. COMPLICATIONS: None. HISTORY: The patient is a 32-year-old female with a history of alcohol abuse, had a fall to her left hip of unknown duration. X-rays showed a displaced basicervical and intertrochanteric fracture. The patient was seen by me in the bedside. I have explained the complex nature of her injury. I presented the patient with different treatment options. She elected to the proceed with open reduction and internal fixation. I reviewed the risk and benefits of the surgery with the patient in detail, the risk included, not limited to bleeding, infection, nerve vessel damage, continued pain, malunion, nonunion, symptomatic hardware, need for further surgery, blood clots, and even . The patient fully understood the risks and benefits and opted to proceed. DESCRIPTION OF PROCEDURE: The patient was brought to the operating room table. She underwent general anesthesia and she was given appropriate prophylactic antibiotics before the x-rays were taken. The right leg was placed in a fracture table and traction for reduction maneuver. Multiple attempts with attempted reduction was made, and decision was made to proceed with a DSH plate. A 8 cm incision was made lateral on the proximal femur. The skin dissection was taken out. IT band was incised in line with its fibers and vastus lateralis was dissected, and after multiple attempts of the reduction, satisfactory reduction was unable to maintain. Decision was made to use to a guided pin, it was drilled into the neck to prevent the neck in from retroversion. Multiple guidewires were placed to maintain reduction. Next, an 85 mm DSH screw was placed with placement of appropriate reduction that was confirmed on both AP and lateral radiographs, and drill hole was made with a DSH plate and two additional cortical screw was placed to fix the plate to the bone. Final radiographs were taken, showed an adequate fracture reduction which was acceptable. The wound was copiously irrigated. The deep IT band that was closed using #1 Vicryl sutures. The pin was closed in a standard manner. Sterile dressings was applied. The patient's postoperative instructions included weight bearing as tolerated, DVT prophylaxis, pain control, and followup in the office upon discharge. Allison Dinero, is a certified physician human services assistant who was present for the entirety of the case and his participation was crucial for fracture reduction and retraction of critical neurovascular and successful completion of the surgery. Clem Cobb MD
[2017-09-12] MEDS: cefOXitin 2 GM in Sodium Chloride 0.9% 100 ML IV SCH (05:58)
[2017-09-12] MEDS: Sodium Chloride 0.9% 1,000 ML IV SCH ×2 (06:04→12:15)
[2017-09-12] MEDS ORDERED: HYDROmorphone 0.5 mg/0.5 ml ISec IVP STA (08:14)
[2017-09-12 08:50] LABS: BASO % 0.3 % (0.0-2.0); EOS # 0.2 K/uL (0.0-0.7); HEMOGLOBIN 8.6 g/dL (11.0-16.0); LYMPH # 1.2 K/uL (1.0-4.3); LYMPH % 23.5 % (20.0-40.0); MEAN CELL VOLUME 95.2 fL (81.0-99.0); MEAN CORPUSCULAR HEMOGLOBIN 32.4 pg (27.0-31.0); MEAN PLATELET VOLUME 8.8 fL (7.2-11.7); MONO # 0.3 K/uL (0.0-0.8); MONO % 5.2 % (0.0-10.0); NEUT # 3.4 K/uL (1.8-7.0); RBC 2.66 Mil/uL (3.80-5.20); RED CELL DISTRIBUTION WIDTH 14.9 % (11.5-14.5)
[2017-09-12 09:04] LABS: BLOOD UREA NITROGEN 14 mg/dL (7-17); CALCIUM 7.9 mg/dl (8.6-10.4); GFR AFRICAN-AMERICAN > 60; GFR NON-AFRICAN AMERICAN > 60
--- NOTE | 2017-09-12 09:39 | CARD ---
APPROVED REPORT EXAM: Two-dimensional and M-mode echocardiogram with Doppler and color Doppler. Other Information Quality : GoodRhythm : INDICATION Pre-Op Congestive Heart Failure Pleural Effusion 2D DIMENSIONS IVSd1.0 (0.7-1.1cm)LVDd4.6 (3.9-5.9cm) PWd1.0 (0.7-1.1cm)LVDs3.1 (2.5-4.0cm) FS (%) 32.5 %LVEF (%)60.9 (>50%) M-Mode DIMENSIONS Left Atrium (MM)3.75 (2.5-4.0cm)Aortic Root3.38 (2.2-3.7cm) Aortic Cusp Exc.2.35 (1.5-2.0cm) Mitral Valve MV E Evjqsnym60.0cm/sMV A Vpepbdph29.6cm/sE/A ratio1.0 TDI E/Lateral E'0.0E/Medial E'0.0 Tricuspid Valve TR Peak [id number]/sTR Peak Gr.[id number] LEFT VENTRICLE The left ventricle is normal size. There is normal left ventricular wall thickness. The left ventricular function is normal. The left ventricular ejection fraction is within the normal range. No regional wall motion abnormalities noted. The left ventricular diastolic function is normal. No left ventricle thrombus noted on this study. There is no ventricular septal defect visualized. There is no left ventricular aneurysm. There is no mass noted in the left ventricle. RIGHT VENTRICLE The right ventricle is normal size. There is normal right ventricular wall thickness. The right ventricular systolic function is normal. ATRIA The left atrium size is normal. The right atrium size is normal. The interatrial septum is intact with no evidence for an atrial septal defect. AORTIC VALVE The aortic valve is normal in structure and function. No aortic regurgitation is present. There is no aortic valvular stenosis. There is no aortic valvular vegetation. MITRAL VALVE The mitral valve is normal in structure and function. There is no evidence of mitral valve prolapse. There is no mitral valve stenosis. There is no mitral valve regurgitation noted. TRICUSPID VALVE The tricuspid valve is normal in structure and function. There is no tricuspid valve regurgitation noted. There is no tricuspid valve prolapse or vegetation. There is no tricuspid valve stenosis. PULMONIC VALVE The pulmonary valve is normal in structure and function. There is no pulmonic valvular regurgitation. There is no pulmonic valvular stenosis. GREAT VESSELS The aortic root is normal in size. The ascending aorta is normal in size. The pulmonary artery is normal. The IVC is normal in size and collapses >50% with inspiration. PERICARDIAL EFFUSION The pericardium appears normal. There is no pleural effusion. <Conclusion> The left ventricular function is normal. The left ventricular ejection fraction is within the normal range. No regional wall motion abnormalities noted. The aortic valve is normal in structure and function. The mitral valve is normal in structure and function.
[2017-09-12] MEDS: Saccharomyces Boulardi 250 mg Cap PO SCH ×2 (10:45→18:59)
--- NOTE | 2017-09-12 12:27 | CARD ---
APPROVED REPORT EKG Measurement Heart [id number] CO [id number] <Conclusion> Normal sinus rhythm Normal ECG
[2017-09-12] MEDS: Oxycodone/Acetaminophen 5/325 mg Tab PO PRN (13:32)
--- NOTE | 2017-09-12 14:00 | CP.PCM.PN ---
Subjective - Date & Time of Evaluation Date of Evaluation: 09/12/17 Time of Evaluation: 13:57 - Subjective Subjective: Patient states pain is not controlled. She says that she felt better after dilaudid increased. Denies CP/SOB/dizziness. She says she had a lot of pain during PT today. Objective - Vital Signs/Intake and Output Vital Signs (last 24 hours): Temp Pulse Resp BP Pulse Ox 100.3 F H 102 H 20 102/67 100 09/12/17 07:00 09/12/17 11:37 09/12/17 07:00 09/12/17 07:00 09/12/17 07:00 Intake and Output: 09/12/17 09/12/17 06:59 18:59 Intake Total 1820 Output Total 1950 Balance -130 - Medications Medications: Current Medications Acetaminophen (Tylenol 325mg Tab) 650 mg PO Q6 [facility] Albuterol (Ventolin Hfa 90 Mcg/Actuation (8 G)) 1 puff IH RQ4 PRN PRN Reason: Shortness of Breath Cyclobenzaprine HCl (Flexeril) 5 mg PO TID PRN PRN Reason: Muscle spasm Last Admin: 09/12/17 13:31 Dose: 5 mg Docusate Sodium (Colace) 100 mg PO BID [facility] Last Admin: 09/12/17 10:45 Dose: 100 mg Enoxaparin Sodium (Lovenox) 40 mg SC Q24H [facility] Folic Acid (Folic Acid) 1 mg PO DAILY [facility] Last Admin: 09/12/17 10:45 Dose: 1 mg Gabapentin (Neurontin) 300 mg PO TID [facility] Last Admin: 09/12/17 13:32 Dose: 300 mg Hydromorphone HCl (Dilaudid) 1 mg IVP Q4H PRN PRN Reason: Pain, moderate (4-7) Last Admin: 09/12/17 10:57 Dose: 1 mg Ketorolac Tromethamine (Toradol) 30 mg IVP Q6H [facility] Stop: 09/13/17 08:01 Oxycodone HCl (Oxycodone Immediate Release Tab) 10 mg PO Q4H PRN PRN Reason: Pain, Mild (1-3) Propranolol HCl (Inderal) 10 mg PO BID [facility] Last Admin: 09/12/17 10:54 Dose: Not Given Saccharomyces Boulardii (Florastor) 250 mg PO BID [facility] Last Admin: 09/12/17 10:45 Dose: 250 mg Thiamine HCl (Vitamin B1 Tab) 100 mg PO DAILY [facility] Last Admin: 09/12/17 10:45 Dose: 100 mg - Labs Labs: 09/12/17 08:39 09/12/17 08:39 PT 13.6 SECONDS (9.7-12.2) H 09/10/17 11:15 INR 1.2 09/10/17 11:15 APTT 31 SECONDS (21-34) 09/10/17 11:15 - Extremities Exam Additional comments: Left thigh swollen but soft. ICe applied. Dressing intact no visible drainage. + ROM ankel/toes, esnation intact +DP/PT pulse calves soft NT neg homans Assessment and Plan (1) Fracture, intertrochanteric, left femur Assessment & Plan: POD# 1 s/p left hip ORIF will add toradol and tylenol jose, and oxycodoneprn PT/OT d/c planning to rehab labs in am ice encourage OOB/IS d/w Dr. Cobb, agrees with above Status: Acute
[2017-09-12] MEDS: Enoxaparin 40 mg Syringe SC SCH (18:00)
--- NOTE | 2017-09-12 19:00 | CP.PCM.PN ---
Subjective - Date & Time of Evaluation Date of Evaluation: 09/12/17 Time of Evaluation: 10:00 - Subjective Subjective: clinically same Objective - Vital Signs/Intake and Output Vital Signs (last 24 hours): Temp Pulse Resp BP Pulse Ox 98.6 F 89 18 104/67 96 09/12/17 15:45 09/12/17 16:30 09/12/17 15:45 09/12/17 15:45 09/12/17 15:45 Intake and Output: 09/12/17 09/12/17 06:59 18:59 Intake Total 1820 900 Output Total 1950 300 Balance -130 600 - Medications Medications: Current Medications Acetaminophen (Tylenol 325mg Tab) 650 mg PO Q6 [facility] Albuterol (Ventolin Hfa 90 Mcg/Actuation (8 G)) 1 puff IH RQ4 PRN PRN Reason: Shortness of Breath Cyclobenzaprine HCl (Flexeril) 5 mg PO TID PRN PRN Reason: Muscle spasm Last Admin: 09/12/17 13:31 Dose: 5 mg Docusate Sodium (Colace) 100 mg PO BID [facility] Last Admin: 09/12/17 10:45 Dose: 100 mg Enoxaparin Sodium (Lovenox) 40 mg SC Q24H [facility] Folic Acid (Folic Acid) 1 mg PO DAILY [facility] Last Admin: 09/12/17 10:45 Dose: 1 mg Gabapentin (Neurontin) 300 mg PO TID [facility] Last Admin: 09/12/17 13:32 Dose: 300 mg Hydromorphone HCl (Dilaudid) 1 mg IVP Q4H PRN PRN Reason: Pain, moderate (4-7) Last Admin: 09/12/17 10:57 Dose: 1 mg Ketorolac Tromethamine (Toradol) 30 mg IVP Q6H [facility] Stop: 09/13/17 08:01 Last Admin: 09/12/17 14:24 Dose: 30 mg Oxycodone HCl (Oxycodone Immediate Release Tab) 10 mg PO Q4H PRN PRN Reason: Pain, Mild (1-3) Propranolol HCl (Inderal) 10 mg PO BID [facility] Last Admin: 09/12/17 10:54 Dose: Not Given Saccharomyces Boulardii (Florastor) 250 mg PO BID [facility] Last Admin: 09/12/17 10:45 Dose: 250 mg Thiamine HCl (Vitamin B1 Tab) 100 mg PO DAILY [facility] Last Admin: 09/12/17 10:45 Dose: 100 mg - Labs Labs: 09/12/17 08:39 09/12/17 08:39 PT 13.6 SECONDS (9.7-12.2) H 09/10/17 11:15 INR 1.2 09/10/17 11:15 APTT 31 SECONDS (21-34) 09/10/17 11:15 - Constitutional Appears: Well - Head Exam Head Exam: ATRAUMATIC, NORMAL INSPECTION, NORMOCEPHALIC - Eye Exam Eye Exam: EOMI, Normal appearance, PERRL Pupil Exam: NORMAL ACCOMODATION, PERRL - ENT Exam ENT Exam: Mucous Membranes Moist, Normal Exam - Neck Exam Neck Exam: Full ROM, Normal Inspection. absent: Lymphadenopathy - Respiratory Exam Respiratory Exam: Decreased Breath Sounds - Cardiovascular Exam Cardiovascular Exam: REGULAR RHYTHM, +S1, +S2 - GI/Abdominal Exam GI & Abdominal Exam: Soft, Diminished Bowel Sounds - Rectal Exam Rectal Exam: Deferred
--- NOTE | 2017-09-12 19:12 | PN ---
DATE: SUBJECTIVE: The patient underwent open reduction and internal fixation of left hip intertrochanteric fracture with dynamic hip screws. The patient denies any chest pain or shortness of breath at this time, but she is experiencing significant pain in the left hip and she is about to receive . No reported ventricular arrhythmia. PHYSICAL EXAMINATION: VITAL SIGNS: Blood pressure 102/67, heart rate 85, temperature 100.3, and respirations 20. HEENT: Pale conjunctivae. CHEST: Clear. HEART: Heart sounds regular. EXTREMITIES: No pedal edema. LABORATORY DATA: Today's SMA-7 is within normal limits. Potassium 7.9. Today's hemoglobin and hematocrit 8.6 and 25.3. White count and platelets counts are within normal limits. Official echo report was practically a normal study. ASSESSMENT: 1. Status post open reduction and internal fixation of the left intertrochanteric fracture. 2. Anemia postoperatively. RECOMMENDATIONS: Continue current IV Dilaudid and IV Toradol. Continue subcutaneous Lovenox 20 mg daily, Inderal 0 mg twice a day, thiamine 100 mg daily. Obtain 12-lead EKG postoperative. Rigo Rodriguez MD
[2017-09-12] MEDS: oxyCODONE 10 mg Immediate Release Tab PO PRN (20:31)
[2017-09-13] MEDS: HYDROmorphone 0.5 mg/0.5 ml ISec IVP PRN ×2 (04:20→08:26)
[2017-09-13 06:22] LABS: HEMOGLOBIN 7.3 g/dL (11.0-16.0); MEAN CELL VOLUME 96.2 fL (81.0-99.0); MEAN CORPUSCULAR HEMOGLOBIN 31.8 pg (27.0-31.0); MEAN CORPUSCULAR HGB CONC 33.1 g/dL (33.0-37.0); RBC 2.3 Mil/uL (3.80-5.20); RED CELL DISTRIBUTION WIDTH 14.9 % (11.5-14.5); WHITE BLOOD COUNT 4.2 K/uL (4.8-10.8)
[2017-09-13 06:48] LABS: BLOOD UREA NITROGEN 14 mg/dL (7-17); GFR AFRICAN-AMERICAN > 60; GFR NON-AFRICAN AMERICAN > 60
--- NOTE | 2017-09-13 09:20 | CP.PCM.PN ---
Subjective - Date & Time of Evaluation Date of Evaluation: 09/13/17 Time of Evaluation: 09:17 - Subjective Subjective: Patient states pain is much better today, says she slept well overnight. Denies Cp/SOB/dizziness. Objective - Vital Signs/Intake and Output Vital Signs (last 24 hours): Temp Pulse Resp BP Pulse Ox 98.3 F 83 20 97/61 L 99 09/13/17 08:36 09/13/17 08:36 09/13/17 08:36 09/13/17 08:36 09/13/17 08:36 Intake and Output: 09/13/17 09/13/17 06:59 18:59 Intake Total 520 Output Total 400 Balance 120 - Medications Medications: Current Medications Acetaminophen (Tylenol 325mg Tab) 650 mg PO Q6 [facility] Last Admin: 09/13/17 05:12 Dose: Not Given Albuterol (Ventolin Hfa 90 Mcg/Actuation (8 G)) 1 puff IH RQ4 PRN PRN Reason: Shortness of Breath Cyclobenzaprine HCl (Flexeril) 5 mg PO TID PRN PRN Reason: Muscle spasm Last Admin: 09/12/17 22:00 Dose: 5 mg Docusate Sodium (Colace) 100 mg PO BID [facility] Last Admin: 09/12/17 18:59 Dose: 100 mg Enoxaparin Sodium (Lovenox) 40 mg SC Q24H [facility] Last Admin: 09/12/17 18:00 Dose: 40 mg Folic Acid (Folic Acid) 1 mg PO DAILY [facility] Last Admin: 09/12/17 10:45 Dose: 1 mg Gabapentin (Neurontin) 300 mg PO TID [facility] Last Admin: 09/12/17 18:59 Dose: 300 mg Hydromorphone HCl (Dilaudid) 1 mg IVP Q4H PRN PRN Reason: Pain, moderate (4-7) Ketorolac Tromethamine (Toradol) 30 mg IVP Q6H [facility] Stop: 09/13/17 14:16 Last Admin: 09/13/17 08:32 Dose: Not Given Oxycodone HCl (Oxycodone Immediate Release Tab) 10 mg PO Q4H PRN PRN Reason: Pain, Mild (1-3) Last Admin: 09/12/17 20:31 Dose: 10 mg Propranolol HCl (Inderal) 10 mg PO BID [facility] Last Admin: 09/12/17 19:00 Dose: Not Given Saccharomyces Boulardii (Florastor) 250 mg PO BID [facility] Last Admin: 09/12/17 18:59 Dose: 250 mg Thiamine HCl (Vitamin B1 Tab) 100 mg PO DAILY [facility] Last Admin: 09/12/17 10:45 Dose: 100 mg - Labs Labs: 09/13/17 06:14 09/13/17 06:14 PT 13.6 SECONDS (9.7-12.2) H 09/10/17 11:15 INR 1.2 09/10/17 11:15 APTT 31 SECONDS (21-34) 09/10/17 11:15 - Extremities Exam Additional comments: Dressing changed. INcision dry and intact. Thigh swelling stable. soft. +ROM ankle/toes, sensation intact calves soft NT neg homans +Dp/PT pulses, no erythema Assessment and Plan (1) Fracture, intertrochanteric, left femur Assessment & Plan: POD#2 s/p ORIF left hip -PT/OT labs reviewed, would recommend seeing how patient tolerates PT, monitor BP iron VTE proph d/c planning d/w Dr. Cobb, agrees with above Status: Acute
[2017-09-13] MEDS: Saccharomyces Boulardi 250 mg Cap PO SCH ×2 (10:20→17:34)
--- NOTE | 2017-09-13 10:54 | CP.PCM.PN ---
Subjective - Date & Time of Evaluation Date of Evaluation: 09/13/17 Time of Evaluation: 10:15 - Subjective Subjective: PGY-2 Progress Note for Patient seen and examined at bedside. No acute events reported overnight. Patient complaints of left thigh redness and swelling. Patient's pain is controlled with pain medication. Patient agrees on going to subacute rehab after hospital discharge. Patient denies fever, chills, shortness of breath, chest pain, nausea, or vomiting. Objective - Vital Signs/Intake and Output Vital Signs (last 24 hours): Temp Pulse Resp BP Pulse Ox 98.3 F 83 20 97/61 L 99 09/13/17 08:36 09/13/17 08:36 09/13/17 08:36 09/13/17 08:36 09/13/17 08:36 Intake and Output: 09/13/17 09/13/17 06:59 18:59 Intake Total 520 Output Total 400 Balance 120 - Medications Medications: Current Medications Acetaminophen (Tylenol 325mg Tab) 650 mg PO Q6 [facility] Last Admin: 09/13/17 05:12 Dose: Not Given Albuterol (Ventolin Hfa 90 Mcg/Actuation (8 G)) 1 puff IH RQ4 PRN PRN Reason: Shortness of Breath Cyclobenzaprine HCl (Flexeril) 5 mg PO TID PRN PRN Reason: Muscle spasm Last Admin: 09/12/17 22:00 Dose: 5 mg Docusate Sodium (Colace) 100 mg PO BID [facility] Last Admin: 09/13/17 10:18 Dose: 100 mg Enoxaparin Sodium (Lovenox) 40 mg SC Q24H [facility] Last Admin: 09/12/17 18:00 Dose: 40 mg Ferrous Sulfate (Feosol) 325 mg PO BID [facility] Folic Acid (Folic Acid) 1 mg PO DAILY [facility] Last Admin: 09/13/17 10:21 Dose: 1 mg Gabapentin (Neurontin) 300 mg PO TID [facility] Last Admin: 09/13/17 10:23 Dose: 300 mg Hydromorphone HCl (Dilaudid) 1 mg IVP Q4H PRN PRN Reason: Pain, moderate (4-7) Ketorolac Tromethamine (Toradol) 30 mg IVP Q6H [facility] Stop: 09/13/17 14:16 Last Admin: 09/13/17 08:32 Dose: Not Given Oxycodone HCl (Oxycodone Immediate Release Tab) 10 mg PO Q4H PRN PRN Reason: Pain, Mild (1-3) Last Admin: 09/12/17 20:31 Dose: 10 mg Propranolol HCl (Inderal) 10 mg PO BID [facility] Last Admin: 09/13/17 10:21 Dose: 10 mg Saccharomyces Boulardii (Florastor) 250 mg PO BID [facility] Last Admin: 09/13/17 10:20 Dose: 250 mg Thiamine HCl (Vitamin B1 Tab) 100 mg PO DAILY [facility] Last Admin: 09/13/17 10:22 Dose: 100 mg - Labs Labs: 09/13/17 06:14 09/13/17 06:14 PT 13.6 SECONDS (9.7-12.2) H 09/10/17 11:15 INR 1.2 09/10/17 11:15 APTT 31 SECONDS (21-34) 09/10/17 11:15 - Constitutional Appears: Non-toxic, No Acute Distress - Head Exam Head Exam: ATRAUMATIC - Eye Exam Eye Exam: EOMI - ENT Exam ENT Exam: Mucous Membranes Moist - Respiratory Exam Respiratory Exam: Clear to Ausculation Bilateral, NORMAL BREATHING PATTERN. absent: Respiratory Distress - Cardiovascular Exam Cardiovascular Exam: REGULAR RHYTHM, +S1, +S2. absent: Murmur - GI/Abdominal Exam GI & Abdominal Exam: Soft, Normal Bowel Sounds. absent: Tenderness - Extremities Exam Extremities Exam: Tenderness (left thigh tenderness) Additional comments: left lower extremity erythema, tenderness, surgical site dressing clean and dry - Neurological Exam Neurological Exam: Alert, Awake, Oriented x3 - Psychiatric Exam Psychiatric exam: Normal Affect, Normal Mood - Skin Skin Exam: Warm Assessment and Plan - Assessment and Plan (Free Text) Assessment: Left intertrochanteric fracture -s/p Left ORIF day 2 -Follow orthopedic recommendations -oxycodone 10mg PO Q4 prn -Dilaudid 1mg iv Q4 prn -follow up venous duplex scan rule out DVT Anemia -Hgb 7.3 today -Feosol 325mg BID -Monitor cbc -Follow up stool occult blood Asthma -Albuterol 1 puff IH Q5 PRN Hx of CHF -Propranolol 10mg po BID Hx of alcoholism -Thiamine and folic acid po daily Patient agreed to subacute rehab after hospital discharge Case discussed with Dr. Hassan All management per Dr. Hassan
[2017-09-13] MEDS: HYDROmorphone 1 mg/ml ISec IVP PRN ×3 (12:49→21:44)
[2017-09-13 14:20] LABS: HEMOGLOBIN 7.6 g/dL (11.0-16.0); MEAN CELL VOLUME 96.5 fL (81.0-99.0); MEAN CORPUSCULAR HEMOGLOBIN 32.2 pg (27.0-31.0); MEAN CORPUSCULAR HGB CONC 33.4 g/dL (33.0-37.0); RBC 2.36 Mil/uL (3.80-5.20); RED CELL DISTRIBUTION WIDTH 15.2 % (11.5-14.5); WHITE BLOOD COUNT 3.8 K/uL (4.8-10.8)
--- NOTE | 2017-09-13 15:33 | RAD ---
PROCEDURE: Left Hip with pelvis X-ray Radiographs. HISTORY: s/p ORIF hip COMPARISON: None. FINDINGS: BONES: Prior proximal left femoral fracture has been treated by open reduction and internal fixation using a Hernández screw and compression plate with adequate reduction achieved. No interval fracture appreciable. No dislocation of the left hip is identified. Pelvic ring grossly appears intact including the sacrum iliac bones and pubic bones. Pubic symphysis is intact. Right hip and bilateral sacroiliac joints appear unremarkable grossly. And JOINTS: As above. SOFT TISSUES: Normal. OTHER FINDINGS: None. IMPRESSION: Status post ORIF proximal left femur as discussed above.
[2017-09-13] MEDS: Enoxaparin 40 mg Syringe SC SCH (16:17)
--- NOTE | 2017-09-13 16:22 | CARD ---
APPROVED REPORT EKG Measurement Heart [id number] <Conclusion> Normal sinus rhythm Normal ECG
--- NOTE | 2017-09-13 16:46 | CP.PCM.PN ---
Subjective - Date & Time of Evaluation Date of Evaluation: 09/13/17 Time of Evaluation: 10:10 - Subjective Subjective: clinically same Objective - Vital Signs/Intake and Output Vital Signs (last 24 hours): Temp Pulse Resp BP Pulse Ox 98.3 F 83 20 97/61 L 99 09/13/17 08:36 09/13/17 08:36 09/13/17 08:36 09/13/17 08:36 09/13/17 08:36 Intake and Output: 09/13/17 09/13/17 06:59 18:59 Intake Total 520 Output Total 400 Balance 120 - Medications Medications: Current Medications Acetaminophen (Tylenol 325mg Tab) 650 mg PO Q6 [facility] Last Admin: 09/13/17 05:12 Dose: Not Given Albuterol (Ventolin Hfa 90 Mcg/Actuation (8 G)) 1 puff IH RQ4 PRN PRN Reason: Shortness of Breath Cyclobenzaprine HCl (Flexeril) 5 mg PO TID PRN PRN Reason: Muscle spasm Last Admin: 09/13/17 12:19 Dose: 5 mg Docusate Sodium (Colace) 100 mg PO BID [facility] Last Admin: 09/13/17 10:18 Dose: 100 mg Enoxaparin Sodium (Lovenox) 40 mg SC Q24H [facility] Last Admin: 09/13/17 16:17 Dose: 40 mg Ferric Sodium Gluconate Complex (Ferrlecit) 125 mg IVPB DAILY [facility] Stop: 09/22/17 10:01 Ferrous Sulfate (Feosol) 325 mg PO BID [facility] Last Admin: 09/13/17 11:16 Dose: 325 mg Folic Acid (Folic Acid) 1 mg PO DAILY [facility] Last Admin: 09/13/17 10:21 Dose: 1 mg Gabapentin (Neurontin) 300 mg PO TID [facility] Last Admin: 09/13/17 15:10 Dose: 300 mg Hydromorphone HCl (Dilaudid) 1 mg IVP Q4H PRN PRN Reason: Pain, moderate (4-7) Last Admin: 09/13/17 12:49 Dose: 1 mg Oxycodone HCl (Oxycodone Immediate Release Tab) 10 mg PO Q4H PRN PRN Reason: Pain, Mild (1-3) Last Admin: 09/12/17 20:31 Dose: 10 mg Propranolol HCl (Inderal) 10 mg PO BID [facility] Last Admin: 09/13/17 10:21 Dose: 10 mg Saccharomyces Boulardii (Florastor) 250 mg PO BID [facility] Last Admin: 09/13/17 10:20 Dose: 250 mg Thiamine HCl (Vitamin B1 Tab) 100 mg PO DAILY [facility] Last Admin: 09/13/17 10:22 Dose: 100 mg - Labs Labs: 09/13/17 14:16 09/13/17 06:14 PT 13.6 SECONDS (9.7-12.2) H 09/10/17 11:15 INR 1.2 09/10/17 11:15 APTT 31 SECONDS (21-34) 09/10/17 11:15
[2017-09-13] MEDS ORDERED: Ergocalciferol 50,000 Intl Units Cap PO SCH (17:30)
--- NOTE | 2017-09-13 17:57 | PN ---
DATE: SUBJECTIVE: The patient is experiencing left leg swelling. She denies any chest pain. PHYSICAL EXAMINATION: VITAL SIGNS: Blood pressure 97/61, heart rate 83, temperature 98.3, respirations 20. HEENT: Normocephalic. CHEST: Clear. HEART: Heart sounds are regular. EXTREMITIES: 1+ left leg and left thigh edema. LABORATORY DATA: EKG postoperatively, sinus rhythm. Today's laboratories: SMA-7 is within normal limits. Calcium is 8.0. Hemoglobin and hematocrit 7.3 and 22.2, platelet count 114,000. declining since admission. ASSESSMENT: 1. Status post open reduction and internal fixation of left hip fracture. 2. Rule out deep vein thrombosis of the left lower extremity. 3. Anemia. RECOMMENDATIONS: Optimize current pain management and continue Lovenox 20 mg subcutaneously daily. Obtain venous Doppler of the lower extremities and then follow with the results of the hip and pelvic x-ray. Rigo Rodriguez MD
[2017-09-14] MEDS: oxyCODONE 10 mg Immediate Release Tab PO PRN ×3 (00:30→18:53)
[2017-09-14 02:16] VITALS: O2SAT 98
[2017-09-14] MEDS: HYDROmorphone 1 mg/ml ISec IVP PRN (04:07)
[2017-09-14 06:21] LABS: BASO % 0.7 % (0.0-2.0); EOS # 0.2 K/uL (0.0-0.7); EOS % 6.1 % (0.0-4.0); HEMOGLOBIN 7.5 g/dL (11.0-16.0); LYMPH # 1.2 K/uL (1.0-4.3); LYMPH % 30.9 % (20.0-40.0); MEAN CELL VOLUME 97.7 fL (81.0-99.0); MEAN CORPUSCULAR HEMOGLOBIN 32.2 pg (27.0-31.0); MEAN CORPUSCULAR HGB CONC 32.9 g/dL (33.0-37.0); MEAN PLATELET VOLUME 9.3 fL (7.2-11.7); MONO # 0.2 K/uL (0.0-0.8); MONO % 5.8 % (0.0-10.0); NEUT # 2.2 K/uL (1.8-7.0); NEUT % 56.5 % (50.0-75.0); NRBC % 0.1 % (0.0-2.0); RBC 2.32 Mil/uL (3.80-5.20); RED CELL DISTRIBUTION WIDTH 15.8 % (11.5-14.5); WHITE BLOOD COUNT 3.9 K/uL (4.8-10.8)
[2017-09-14 06:45] LABS: ALB/GLOB RATIO 0.9 (1.0-2.1); ALT/SGPT 33 U/L (9-52); AST/SGOT 43 U/L (14-36); BLOOD UREA NITROGEN 13 mg/dL (7-17); CALCIUM 8.2 mg/dl (8.6-10.4); GFR AFRICAN-AMERICAN > 60; GFR NON-AFRICAN AMERICAN > 60
[2017-09-14] MEDS: HYDROmorphone 0.5 mg/0.5 ml ISec IVP PRN ×3 (08:38→16:51)
[2017-09-14] MEDS ORDERED: Enoxaparin 60 mg Syringe SC SCH (10:00)
[2017-09-14] MEDS ORDERED: Ferric Sodium Gluconat Complex 62.5 mg/5 ml Vial IVPB SCH (10:00)
--- NOTE | 2017-09-14 10:25 | CP.PCM.PN ---
Subjective - Date & Time of Evaluation Date of Evaluation: 09/14/17 Time of Evaluation: 09:15 - Subjective Subjective: PGY-[address] Hassan Patient seen and examined at bedside. Patient still complains of severe pain overnight. Patient is eating and drinking well. Patient denies fever, chills, shortness of breath, chest pain, nausea, or vomiting. Objective - Vital Signs/Intake and Output Vital Signs (last 24 hours): Temp Pulse Resp BP Pulse Ox 98.2 F 96 H 20 114/70 98 09/13/17 23:30 09/14/17 08:22 09/13/17 23:30 09/14/17 08:22 09/13/17 23:30 Intake and Output: 09/14/17 09/14/17 06:59 18:59 Intake Total 880 Balance 880 - Medications Medications: Current Medications Acetaminophen (Tylenol 325mg Tab) 650 mg PO Q6 [facility] Last Admin: 09/14/17 05:27 Dose: Not Given Albuterol (Ventolin Hfa 90 Mcg/Actuation (8 G)) 1 puff IH RQ4 PRN PRN Reason: Shortness of Breath Cyclobenzaprine HCl (Flexeril) 5 mg PO TID PRN PRN Reason: Muscle spasm Last Admin: 09/14/17 00:10 Dose: 5 mg Docusate Sodium (Colace) 100 mg PO BID [facility] Last Admin: 09/13/17 17:34 Dose: 100 mg Enoxaparin Sodium (Lovenox) 60 mg SC Q12 [facility] Ergocalciferol (Drisdol 50,000 Intl Units Cap) 1 cap PO Q7D [facility] Last Admin: 09/13/17 17:34 Dose: 1 cap Ferric Sodium Gluconate Complex (Ferrlecit) 125 mg IVPB DAILY [facility] Stop: 09/22/17 10:01 Ferrous Sulfate (Feosol) 325 mg PO BID [facility] Last Admin: 09/13/17 17:34 Dose: 325 mg Folic Acid (Folic Acid) 1 mg PO DAILY [facility] Last Admin: 09/13/17 10:21 Dose: 1 mg Gabapentin (Neurontin) 300 mg PO TID [facility] Last Admin: 09/13/17 17:34 Dose: 300 mg Hydromorphone HCl (Dilaudid) 1 mg IVP Q4H PRN PRN Reason: Pain, moderate (4-7) Last Admin: 09/14/17 08:38 Dose: 1 mg Ketorolac Tromethamine (Toradol) 30 mg IVP Q6H [facility] Stop: 09/15/17 04:01 Oxycodone HCl (Oxycodone Immediate Release Tab) 10 mg PO Q4H PRN PRN Reason: Pain, Mild (1-3) Last Admin: 09/14/17 05:59 Dose: 10 mg Propranolol HCl (Inderal) 10 mg PO BID [facility] Last Admin: 09/13/17 17:29 Dose: Not Given Saccharomyces Boulardii (Florastor) 250 mg PO BID [facility] Last Admin: 09/13/17 17:34 Dose: 250 mg Thiamine HCl (Vitamin B1 Tab) 100 mg PO DAILY [facility] Last Admin: 09/13/17 10:22 Dose: 100 mg - Labs Labs: 09/14/17 06:11 09/14/17 06:11 PT 13.6 SECONDS (9.7-12.2) H 09/10/17 11:15 INR 1.2 09/10/17 11:15 APTT 31 SECONDS (21-34) 09/10/17 11:15 - Constitutional Appears: Non-toxic, No Acute Distress - Head Exam Head Exam: ATRAUMATIC - Eye Exam Eye Exam: EOMI, Normal appearance - ENT Exam ENT Exam: Mucous Membranes Moist - Neck Exam Neck Exam: Normal Inspection - Respiratory Exam Respiratory Exam: Clear to Ausculation Bilateral, NORMAL BREATHING PATTERN - Cardiovascular Exam Cardiovascular Exam: REGULAR RHYTHM, +S1, +S2. absent: Murmur - GI/Abdominal Exam GI & Abdominal Exam: Soft, Normal Bowel Sounds. absent: Tenderness - Extremities Exam Extremities Exam: Tenderness Additional comments: left lower extremity erythema, tenderness, surgical site dressing clean and dry - Neurological Exam Neurological Exam: Alert, Awake, Oriented x3. absent: Motor Sensory Deficit - Psychiatric Exam Psychiatric exam: Normal Affect, Normal Mood - Skin Skin Exam: Warm Assessment and Plan - Assessment and Plan (Free Text) Assessment: Left intertrochanteric fracture -s/p Left ORIF day 3 -Follow orthopedic recommendations -oxycodone 10mg PO Q4 prn -Dilaudid 1mg iv Q4 prn -Venous duplex scan negative for DVT -Lovenox decreased to 40mg Anemia -Hgb 7.5 today -Feosol 325mg BID -Monitor cbc -Stool occult blood negative Asthma -Albuterol 1 puff IH Q5 PRN Hx of CHF -Propranolol 10mg po BID Hx of alcoholism -Thiamine and folic acid po daily Patient will be going to [facility] after hospital discharge Case discussed with Dr. Hassan Patient is medically stable to be discharged per Dr. Hassan
--- NOTE | 2017-09-14 10:34 | CP.PCM.PN ---
Subjective - Date & Time of Evaluation Date of Evaluation: 09/14/17 Time of Evaluation: 10:34 - Subjective Subjective: Patient complaining of increased pain since toradol was stopped. She says she didn't sleep well last night. Denies CP/SOB/dizziness/palp/headache. Objective - Vital Signs/Intake and Output Vital Signs (last 24 hours): Temp Pulse Resp BP Pulse Ox 98.2 F 96 H 20 114/70 98 09/13/17 23:30 09/14/17 08:22 09/13/17 23:30 09/14/17 08:22 09/13/17 23:30 Intake and Output: 09/14/17 09/14/17 06:59 18:59 Intake Total 880 Balance 880 - Medications Medications: Current Medications Acetaminophen (Tylenol 325mg Tab) 650 mg PO Q6 [facility] Last Admin: 09/14/17 05:27 Dose: Not Given Albuterol (Ventolin Hfa 90 Mcg/Actuation (8 G)) 1 puff IH RQ4 PRN PRN Reason: Shortness of Breath Cyclobenzaprine HCl (Flexeril) 5 mg PO TID PRN PRN Reason: Muscle spasm Last Admin: 09/14/17 00:10 Dose: 5 mg Docusate Sodium (Colace) 100 mg PO BID [facility] Last Admin: 09/13/17 17:34 Dose: 100 mg Enoxaparin Sodium (Lovenox) 60 mg SC Q12 [facility] Ergocalciferol (Drisdol 50,000 Intl Units Cap) 1 cap PO Q7D [facility] Last Admin: 09/13/17 17:34 Dose: 1 cap Ferric Sodium Gluconate Complex (Ferrlecit) 125 mg IVPB DAILY [facility] Stop: 09/22/17 10:01 Ferrous Sulfate (Feosol) 325 mg PO BID [facility] Last Admin: 09/13/17 17:34 Dose: 325 mg Folic Acid (Folic Acid) 1 mg PO DAILY [facility] Last Admin: 09/13/17 10:21 Dose: 1 mg Gabapentin (Neurontin) 300 mg PO TID [facility] Last Admin: 09/13/17 17:34 Dose: 300 mg Hydromorphone HCl (Dilaudid) 1 mg IVP Q4H PRN PRN Reason: Pain, moderate (4-7) Last Admin: 09/14/17 08:38 Dose: 1 mg Ketorolac Tromethamine (Toradol) 30 mg IVP Q6H [facility] Stop: 09/15/17 04:01 Oxycodone HCl (Oxycodone Immediate Release Tab) 10 mg PO Q4H PRN PRN Reason: Pain, Mild (1-3) Last Admin: 09/14/17 05:59 Dose: 10 mg Propranolol HCl (Inderal) 10 mg PO BID [facility] Last Admin: 09/13/17 17:29 Dose: Not Given Saccharomyces Boulardii (Florastor) 250 mg PO BID [facility] Last Admin: 09/13/17 17:34 Dose: 250 mg Thiamine HCl (Vitamin B1 Tab) 100 mg PO DAILY [facility] Last Admin: 09/13/17 10:22 Dose: 100 mg - Labs Labs: 09/14/17 06:11 09/14/17 06:11 PT 13.6 SECONDS (9.7-12.2) H 09/10/17 11:15 INR 1.2 09/10/17 11:15 APTT 31 SECONDS (21-34) 09/10/17 11:15 - Extremities Exam Additional comments: LLE: thigh swollen, no change. +ROM ankle/toes, sensation intact, +DP/PT pulses calves soft NT neg homans encouraged ankle pumpes/OOB Assessment and Plan (1) Fracture, intertrochanteric, left femur Assessment & Plan: POD#3 s/p left hip ORIF extensive surgery and dissection due to difficult reduction, swelling in thigh expected venous dopplers per Dr. Rodriguez prelim neg for DVT recommend continue with proph lovenox dose 40mg SQ daily at 4pm as dopplers are negative/low suspicion due to increased risk of hematoma/need for transfusion PT/OT orthopedically stable f/u Dr. Cobb in office approx 10 days upon d/c call for appointment d/w Dr. Cobb, agrees with above Status: Acute (2) Vitamin D deficiency Assessment & Plan: significant deficiency recommend Vit D3 2000 IU daily as outpt (only D2 on formulary) Status: Acute (3) Acute blood loss anemia Assessment & Plan: hemodynamically stable and h/h stable PT to continue if patient asymptomatic and hemodynamically stable about 7 iron Status: Acute
[2017-09-14] MEDS: Saccharomyces Boulardi 250 mg Cap PO SCH ×2 (10:52→17:29)
--- NOTE | 2017-09-14 12:18 | VASCLAB ---
PROCEDURE: Left Lower Extremity Venous Duplex Exam. HISTORY: DVT PRIORS: None. TECHNIQUE: Left common femoral, femoral, popliteal and posterior tibial, peroneal and great saphenous veins were evaluated. Flow was assessed with color Doppler, compressibility, assessment of phasic flow and augmentation response. Report prepared by ALIYAH Wagoner, RVT FINDINGS: LEFT: 1. Common Femoral Vein: 1.1. Compressibility - Fully compressible: Thrombus - None : Flow - Phasic: Augmentation -Normal: Reflux - None. 2. Femoral Vein: 2.1. Compressibility - Fully compressible: Thrombus - None: Flow - Phasic: Augmentation -Normal: Reflux - None. 3. Popliteal Vein: 3.1. Compressibility - Fully compressible: Thrombus - None: Flow - Phasic: Augmentation -Normal: Reflux - None. 4. Posterior Tibial Vein: 4.1. Compressibility - Fully compressible: Thrombus - None: Flow - Phasic: Augmentation -Normal: Reflux - None. 5. Peroneal Vein: 5.1. Compressibility - Fully compressible: Thrombus - None: Flow - Phasic: Augmentation -Normal: Reflux - None. 6. Great Saphenous Vein: 6.1. Compressibility - Fully compressible: Thrombus - None: Flow - Phasic: Augmentation - Normal: Reflux - None. OTHER FINDINGS: IMPRESSION: No evidence of deep or superficial vein thrombosis of the left lower extremity with excellent venous flow. Normal valve function noted of the left side. Normal venous flow noted in the right common femoral vein.
--- NOTE | 2017-09-14 13:18 | CP.PCM.PN ---
Subjective - Date & Time of Evaluation Date of Evaluation: 09/14/17 Time of Evaluation: 08:40 - Subjective Subjective: clinically same Objective - Vital Signs/Intake and Output Vital Signs (last 24 hours): Temp Pulse Resp BP Pulse Ox 99 F 88 20 119/53 L 98 09/14/17 11:40 09/14/17 13:00 09/14/17 11:40 09/14/17 13:00 09/14/17 11:40 Intake and Output: 09/14/17 09/14/17 06:59 18:59 Intake Total 880 Balance 880 - Medications Medications: Current Medications Acetaminophen (Tylenol 325mg Tab) 650 mg PO Q6 [facility] Last Admin: 09/14/17 05:27 Dose: Not Given Albuterol (Ventolin Hfa 90 Mcg/Actuation (8 G)) 1 puff IH RQ4 PRN PRN Reason: Shortness of Breath Cyclobenzaprine HCl (Flexeril) 5 mg PO TID PRN PRN Reason: Muscle spasm Last Admin: 09/14/17 00:10 Dose: 5 mg Docusate Sodium (Colace) 100 mg PO BID [facility] Last Admin: 09/14/17 10:49 Dose: 100 mg Enoxaparin Sodium (Lovenox) 40 mg SC DAILY [facility] Ergocalciferol (Drisdol 50,000 Intl Units Cap) 1 cap PO Q7D [facility] Last Admin: 09/13/17 17:34 Dose: 1 cap Ferric Sodium Gluconate Complex (Ferrlecit) 125 mg IVPB DAILY [facility] Stop: 09/22/17 10:01 Last Admin: 09/14/17 10:47 Dose: 125 mg Ferrous Sulfate (Feosol) 325 mg PO BID [facility] Last Admin: 09/14/17 10:50 Dose: 325 mg Folic Acid (Folic Acid) 1 mg PO DAILY [facility] Last Admin: 09/14/17 10:53 Dose: 1 mg Gabapentin (Neurontin) 300 mg PO TID [facility] Last Admin: 09/14/17 10:54 Dose: 300 mg Hydromorphone HCl (Dilaudid) 1 mg IVP Q4H PRN PRN Reason: Pain, moderate (4-7) Last Admin: 09/14/17 13:01 Dose: 1 mg Ketorolac Tromethamine (Toradol) 30 mg IVP Q6H [facility] Stop: 09/15/17 04:01 Last Admin: 09/14/17 11:08 Dose: 30 mg Oxycodone HCl (Oxycodone Immediate Release Tab) 10 mg PO Q4H PRN PRN Reason: Pain, Mild (1-3) Last Admin: 09/14/17 05:59 Dose: 10 mg Propranolol HCl (Inderal) 10 mg PO BID [facility] Last Admin: 09/14/17 11:57 Dose: Not Given Saccharomyces Boulardii (Florastor) 250 mg PO BID [facility] Last Admin: 09/14/17 10:52 Dose: 250 mg Thiamine HCl (Vitamin B1 Tab) 100 mg PO DAILY [facility] Last Admin: 09/14/17 10:54 Dose: 100 mg - Labs Labs: 09/14/17 06:11 09/14/17 06:11 PT 13.6 SECONDS (9.7-12.2) H 09/10/17 11:15 INR 1.2 09/10/17 11:15 APTT 31 SECONDS (21-34) 09/10/17 11:15 - Constitutional Appears: Well - Head Exam Head Exam: ATRAUMATIC, NORMAL INSPECTION, NORMOCEPHALIC - Eye Exam Eye Exam: EOMI, Normal appearance, PERRL Pupil Exam: NORMAL ACCOMODATION, PERRL - ENT Exam ENT Exam: Mucous Membranes Moist, Normal Exam - Neck Exam Neck Exam: Full ROM, Normal Inspection. absent: Lymphadenopathy - Respiratory Exam Respiratory Exam: Decreased Breath Sounds - Cardiovascular Exam Cardiovascular Exam: REGULAR RHYTHM, +S1, +S2 - GI/Abdominal Exam GI & Abdominal Exam: Soft, Diminished Bowel Sounds - Rectal Exam Rectal Exam: Deferred
[2017-09-14] MEDS ORDERED: Enoxaparin 40 mg Syringe SC SCH (16:00)
[2017-09-14 16:06] VITALS: RESP 18; TEMP 97.9
[2017-09-14 17:40] VITALS: BP 106/69
[2017-09-14 17:41] VITALS: PULSE 84
--- NOTE | 2017-09-14 22:43 | PN ---
DATE: SUBJECTIVE: The patient had chest pain with shortness of breath. PHYSICAL EXAMINATION: VITAL SIGNS: Blood pressure 106/66, heart rate 82, temperature 97.9, respirations 18. HEENT: Normocephalic. NECK: No JVD. CHEST: Clear. HEART: S1 and S2, regular. EXTREMITIES: 1+ pitting edema. LABORATORY DATA: Today's SMA-7 is within normal limits except for creatinine of 0.5. Today's hemoglobin and hematocrit is 7.5 and 22.7, white count 3.9, platelet count 125,000. Venous Doppler of her lower extremity, no evidence of DVT of the left lower extremities. ASSESSMENT: 1. Status post open reduction and internal fixation of left intertrochanteric fracture. 2. Anemia. RECOMMENDATIONS: Continue IV Ferrlecit infusion. Continue Inderal 10 mg twice a day, subcutaneous Lovenox was changed to 40 mg daily after negative venous Doppler study. Rigo Rodriguez MD
== END 2017-09-14 19:10 | DRG 558 ==
LOC: C.ER 13:50 → C.9E 17:34 → C.6T 21:48
PROVIDERS: ADMIT Internal Medicine Nephrology; ATTEND Internal Medicine Nephrology
PROC: 0QS704Z Reposition Left Upper Femur with Internal Fixation Device, Open Approach (ICD-10-PCS; principal; 2017-09-11 13:05)
DX: S72.142A Displaced intertrochanteric fracture of left femur, initial encounter for closed fracture (principal); F10.20 Alcohol dependence, uncomplicated; K72.90 Hepatic failure, unspecified without coma; D68.9 Coagulation defect, unspecified; I11.0 Hypertensive heart disease with heart failure; I50.9 Heart failure, unspecified; E87.6 Hypokalemia; D64.9 Anemia, unspecified; J45.909 Unspecified asthma, uncomplicated; W00.0XXA Fall on same level due to ice and snow, initial encounter

== ENCOUNTER 2017-10-10 20:24 | Inpatient (IN) | payer MEDICAID, OTHER ==
[2017-10-10 20:25] VITALS: BMI 30.2
--- NOTE | 2017-10-10 21:19 | C.PDOC ---
History Of Present Illness 32 year old female presents to the ED requesting detox from narcotics. Patient was seen here in August after a fall, diagnosed with a left hip fracture, underwent ORIF surgery, and was sent to a rehab facility. Patient has discharged home yesterday. She reports a history of alcohol abuse and cirrhosis , and initially had requested no narcotics, but after the fracture was diagnosed she was given dilaudid and morphine. Patient was discharged on Neurontin, Tylenol, and Motrin. Since going home patient reports nausea and vomiting, feeling anxious/restless and cannot sleep. Patient developed chills and sweats, and believes she may be in narcotic withdrawal. Last dose of narcotics was last night at 5:00pm. She called Dr. Hassan earlier who advised she come to the ED for further evaluation. Time Seen by Provider: 10/10/17 21:02 Chief Complaint (Nursing): Substance Abuse History Per: Patient History/Exam Limitations: no limitations Onset/Duration Of Symptoms: Days (x1) Current Symptoms Are (Timing): Still Present Modifying Factor(s): Narcotics Past Medical History Reviewed: Historical Data, Nursing Documentation, Vital Signs Vital Signs: Last Vital Signs Temp 97.8 F 10/10/17 20:30 Pulse 94 H 10/10/17 22:47 Resp 18 10/10/17 22:47 BP 103/64 10/10/17 22:47 Pulse Ox 100 10/11/17 00:44 - Medical History PMH: Anxiety, Asthma, Fractures (left hip 3 weeks ago), HTN, Seizures (hx due to hx etoh abuse) Denies: Diabetes, Hepatitis, HIV, Chronic Kidney Disease, Sexually Transmitted Disease Other Surgeries: Left hip ORIF, right ankle surgery - [facility] Procedures DETOXIFICATION SERVICES FOR SUBSTANCE ABUSE TREATMENT (11/09/15) DRAINAGE OF RIGHT PLEURAL CAVITY, PERCUTANEOUS APPROACH (11/06/16) INSERTION OF INFUSION DEV INTO SUP VENA CAVA, PERC APPROACH (11/06/16) REPOSITION LEFT UPPER FEMUR WITH INT FIX, OPEN APPROACH (09/09/17) Family History: States: Unknown Family Hx - Social History Hx Alcohol Use: No Hx Substance Use: No - Immunization History Hx Tetanus Toxoid Vaccination: No Hx Influenza Vaccination: Yes Hx Pneumococcal Vaccination: Yes Review Of Systems Except As Marked, All Systems Reviewed And Found Negative. Constitutional: Positive for: Chills, Sweats. Negative for: Fever Cardiovascular: Negative for: Chest Pain Respiratory: Negative for: Shortness of Breath Gastrointestinal: Positive for: Nausea, Vomiting Psych: Positive for: Anxiety Physical Exam - Physical Exam Appears: No Acute Distress, Other (anxious, tearful) Skin: Normal Color, Warm, Dry Head: Atraumatic, Normacephalic Eye(s): bilateral: Normal Inspection, PERRL, EOMI Nose: Normal Oral Mucosa: Moist Neck: Normal ROM Chest: Symmetrical Cardiovascular: Rhythm Regular, No Murmur Respiratory: Normal Breath Sounds, No Rales, No Rhonchi, No Wheezing Gastrointestinal/Abdominal: Soft, No Tenderness, No Guarding Extremity: Normal ROM (with good ROM of left hip), Capillary Refill (< 2 sec), No Swelling, Other (Clean incision over the left greater trochanter, tender to palpation) Pulses: Left Dorsalis Pedis: Normal, Right Dorsalis Pedis: Normal Neurological/Psych: Oriented x3, Normal Speech ED Course And Treatment - Laboratory Results Result Diagrams: 10/10/17 21:40 10/10/17 21:40 ECG: Interpreted By Me ECG Rhythm: Sinus Rhythm, ST/T Changes, Nonspecific Changes ECG Interpretation: No Acute Changes, Abnormal O2 Sat by Pulse Oximetry: 100 (RA) Pulse Ox Interpretation: Normal Reevaluation Time: 00:42 Reassessment Condition: Improved (slightly better after IV Toradol. She is still experiencing chills and generalized discomfort. She will be evaluated by crisis for possible detox admission.) Medical Decision Making Medical Decision Making: Impression: 32 y/o female with nausea and vomiting, possible narcotic withdrawal Time: 21:14 Plan: * EKG * CMP * CBC * Toradol 30 mg IV * Zofran 4 mg IV Disposition - Disposition Disposition Time: 00:43 Condition: IMPROVED - Clinical Impression Clinical Impression: Withdrawal complaint - Scribe Statement The provider has reviewed the documentation as recorded by the Scribe (Shyann Dubois) Provider Attestation: All medical record entries made by the Scribe were at my direction and personally dictated by me. I have reviewed the chart and agree that the record accurately reflects my personal performance of the history, physical exam, medical decision making, and the department course for this patient. I have also personally directed, reviewed, and agree with the discharge instructions and disposition. Physician Patient Turnover Patient Signed Over To: Dm Puckett Handoff Comments: pending crisis evaluation.
[2017-10-10 21:45] LABS: BASO # 0.1 K/uL (0.0-0.2); BASO % 0.8 % (0.0-2.0); EOS % 0.1 % (0.0-4.0); HEMOGLOBIN 12.3 g/dL (11.0-16.0); LYMPH # 1.5 K/uL (1.0-4.3); MEAN CELL VOLUME 98.3 fL (81.0-99.0); MEAN CORPUSCULAR HGB CONC 33.6 g/dL (33.0-37.0); MEAN PLATELET VOLUME 9.2 fL (7.2-11.7); MONO # 0.3 K/uL (0.0-0.8); MONO % 3.5 % (0.0-10.0); NEUT % 78.6 % (50.0-75.0); RBC 3.72 Mil/uL (3.80-5.20); RED CELL DISTRIBUTION WIDTH 13.7 % (11.5-14.5); WHITE BLOOD COUNT 8.9 K/uL (4.8-10.8)
[2017-10-10 22:04] LABS: ALB/GLOB RATIO 0.8 (1.0-2.1); ALBUMIN 4.7 g/dL (3.5-5.0); ALT/SGPT 44 U/L (9-52); AST/SGOT 46 U/L (14-36); BLOOD UREA NITROGEN 12 mg/dL (7-17); GFR AFRICAN-AMERICAN > 60; GFR NON-AFRICAN AMERICAN > 60
[2017-10-11 01:06] LABS: SQUAMOUS EPITHIAL 3 /hpf (0-5); URINE BILIRUBIN NEGATIVE (NEGATIVE); URINE CLARITY Hazy (Clear); URINE COLOR Yellow (YELLOW); URINE GLUCOSE (UA) NORMAL (Normal); URINE LEUKOCYTE ESTERASE NEG Leu/uL (Negative); URINE PROTEIN NEGATIVE (NEGATIVE)
[2017-10-11 01:07] LABS: URINE BLOOD 2+ (NEGATIVE)
[2017-10-11 01:08] LABS: HCG,QUALITATIVE URINE NEGATIVE (NEGATIVE)
[2017-10-11 01:18] LABS: BARBITURATES, UR NEGATIVE (NEGATIVE); PHENCYCLIDINE, UR NEGATIVE (NEGATIVE)
[2017-10-11 01:49] LABS: BENZODIAZEPINES, UR POSITIVE (NEGATIVE); OPIATES, UR POSITIVE (NEGATIVE)
--- NOTE | 2017-10-11 05:02 | PCM.BM ---
<DelioJennifer redmond Damian - Last Filed: 10/11/17 04:59> Treatment Plan Problems - Problems identified on initial assessmt OPIATE DEPENDENCE Date Initiated: 10/11/17 Time Initiated: 04:59 Assessment reference: NA Status: Monitor Treatment assets and liabiliti Patient Assests: cooperative, ADL independent Patient Liabilities: physical pain - Milieu Protocol Maintain good personal hygiene: daily Encourage regular showers, daily Remind patient to perform daily oral care, daily Assist patient to perform ADL's Maintain personal safety: every shift Educate patient to report safety concerns to staff, every shift Monitor environment for contraband/sharps Medication safety: Monitor for expected outcome, potential side effects: every shift, Assess barriers to learning: every shift, Assess readiness for medication education: every shift <Divine Ríos - Last Filed: 10/11/17 10:49> Family Contact Family involvement: Patient does not wish Family/SO involvement - Goals for Treatment Patient goals for treatment: Complete detox and manage pain related to recent surgery. Discharge/Continuing Care - Education Needs Education Needs: Patient Medication, Patient Pain, Patient Uses of Medical Equipment - Discharge Discharge Criteria: Normal sleep pattern, Ability to care for self, No longer exhibiting s/s of withdrawal Discharge to:: Home - Treatment Team Participation Patient/Family/SO Statement: 10/11/17 10:50 "I don't need aftercare. I just want to be able to manage my pain..." Discussed with Family/SO: No Was Patient/Family/SO present at Treatment Team Meeting: Yes <Maldonado Smith - Last Filed: 10/11/17 13:56> - Diagnosis (1) Opioid use disorder, severe, dependence Status: Acute Interventions: 10/11/17 13:56 * Assess 7x/week regarding severity of withdrawal * Educate regarding risks, benefits, side effects and alternatives of medications * Use Motivational Interviewing for abstinence * Use CBT for relapse prevention * Medication management for withdrawal symptoms * Encourage medication assisted treatment * (2) GEOVANI (generalized anxiety disorder) Status: Acute Interventions: 10/11/17 13:56 * Assess/adjust medications daily and /or as needed * See patient on an individual basis 7x/week to assess symptoms of anxiety * Educate patient regarding benefits, side effects and risks of prescribed medications *
--- NOTE | 2017-10-11 13:38 | PCM.PSYCH ---
Initial Psychiatric Evaluation - Initial Psychiatric Evaluation Type of Admission: Voluntary Legal Status: Capacity Chief Complaint (in patient's own words): "I'm in pain" History of Present Illness and Precipitating Events: Pt is a 32 yo F who is single with one 12 yo daughter, lives with her mother and daughter and is employed. She is known from previous consultation for substance use and related seizures. She says darianae has been seizure free since last year. She claims that she was in [facility] for a bout a month and given "insane amount of opiates" and very little PT. Then after 4 weeks when her insurance denied further treatment she was discharged (10/09) without any weaning off. She git into acute wdw and came to ED. She claims her brother gave her MJ to help with pain and that she was being given low dose Xanax in [facility]. She denies using it on the outside and denies drinking. Pt states she'd been taking 0.5 mg of Xanax three times per day for anxiety for the past 3-4 years. However, she stopped before last admission, but got some in [facility]. Pt also has a history of alcohol use disorder. She began drinking at 12 years old. States she has not used alcohol for several months now. She used to drink 2 pints of alcohol daily. History of one previous detox and no rehab. Denies all other substances including cocaine, heroin, cannabis, stimulants and nicotine. Pt complains of anxiety and depression again. Pt denies suicidal ideation, homicidal ideation, visual and auditory hallucinations. Psych Hx: Anxiety, PTSD (but does not exhibit symptoms). No psych admissions. One prior detox here. Family Psych Hx: One brother had psychosis, other alcohol cocaine and heroin dependence, 1 sister used marijuana, father was an alcoholic and was "abusive." PMHx: HTN, alcoholic hepatitis with decompensated liver failure in the past, seizure disorder, asthma Current Medications: Active Medications Generic Name Dose Route Start Last Admin Trade Name Freq PRN Reason Stop Dose Admin Clonidine HCl 0.1 mg 10/11/17 03:55 Catapres PO Q8H PRN Withdrawal Symptoms Hydroxyzine HCl 25 mg 10/11/17 03:55 10/11/17 06:31 Atarax PO 25 mg Q6H PRN Administration Anxiety Ibuprofen 600 mg 10/11/17 09:57 Motrin Tab PO Q6 PRN Pain, moderate (4-7) Methadone HCl 20 mg 10/11/17 10:00 10/11/17 10:38 Methadone PO 10/16/17 09:59 20 mg Q24H DAKSHA Administration Taper Ondansetron HCl 4 mg 10/11/17 03:56 Zofran Odt PO Q8H PRN Nausea/Vomiting Trazodone HCl 50 mg 10/11/17 03:55 Desyrel PO HS PRN Insomnia Past Psychiatric History - Past Psychiatric History Previous Treatment History: None Pertinent Medical Hx (Current Medical&Sleep Prob, Allergies): Allergies Allergy/AdvReac Type Severity Reaction Status Date / Time No Known Allergies Allergy Verified 10/10/17 20:39 No Known Home Med 10/10/17 Review of Systems - Musculoskeletal Musculoskeletal: Radiating Pain into Limb - Neurological Neurological: Tremor - Psychiatric Psychiatric: Abnormal Sleep Pattern, Anhedonia, Anxiety, Depression. absent: Confusion, Hallucinations, Homicidal Ideation, Paranoia, Suicidal Ideation Mental Status Examination - Personal Presentation Personal Presentation: Looks older than stated age - Affect Affect: Constricted - Motor Activity Motor Activity: Calm - Reliability in Providing Information Reliability in Providing Information: Good - Speech Speech: Organized - Mood Mood: Depressed, Anxious - Formal Thought Process Formal Thought Process: No Impairment - Cognitive Functions Orientation: Person, Place, Situation, Time Sensorium: Alert Attention/Concentration: Attentive Estimate of Intelligence: Average Judgement: Intact, as evidence by: Insight regarding need for hospitalization Memory: Recent intact, as evidence by: Ability to recall events of the day, Remote intact, as evidenced by: Ability to recall historical events - Risk Risk: Withdrawal, Diminished functioning - Strength & Assets Inventory Strength & Assets Inventory: Family support, Cooperative - Limitations Limitations: Other DSM 5 DX - DSM 5 DSM 5 Diagnosis: Opioid withdrawal opioid use severe Alcohol use d/o - in early remission 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 Attend groups and activities Supportive therapy and psychoeducation [place] for abstinence CBT for relapse prevention Refer to self help groups and psych outpt or IOP Smoking cessation with [place] Nicotine patch if needed See a pain dr upon d/c 34 min Projected ELOS: 4-5 days Prognosis: good - Smoking Cessation Smoking Cessation Initiated: Yes
[2017-10-11] MEDS ORDERED: Aluminum Hydroxide/Magnesium Hydroxide Susp (30 mL) PO PRN (13:50)
[2017-10-11] MEDS: Albuterol HFA 90 mcg/actuation (8 g) INH PRN (23:20)
[2017-10-12] MEDS: Albuterol HFA 90 mcg/actuation (8 g) INH PRN ×2 (09:33→23:29)
--- NOTE | 2017-10-12 12:04 | PCM.PYCHPN ---
Psychiatric Progress Note - Psychiatric Progress Note Patient seen today, length of contact: 16 min Patient Chief Complaint: "I'm in pain" Problems Identified/Issues Discussed: The pt is seen, chart reviewed, case discussed with staff. The pt is compliant with medications and reports no side-effects. Symptoms are improving but needs more time to stabilize. After care discussed, support and psychoeducation given. Medication Change: Yes (detox changes daily) Medical Record Reviewed: Yes Mental Status Examination - Cognitive Function Orientation: Person, Place, Situation, Time Memory: Intact, Impaired Attention: WNL Concentration: Poor Association: WNL Fund of Knowledge: WNL - Mood Mood: Depressed, Anxious - Affect Affect: Constricted - Speech Speech: Appropriate - Formal Thought Process Formal Thought Process: No Impairment - Suicidal Ideation Suicidal Ideation: No - Homicidal Ideation Homicidal Ideation: No Goal/Treatment Plan - Goal/Treatment Plan Need for Continued Stay: Discharge may exacerbated symptoms, Severe functional impairment Progress Toward Problem(s) and Goals/Treatment Plan: Start taper with methadone Gabapentin for augmentation Consider lexapro for anxiety and depressive sxs As needed medications All risks, benefits and alternatives of the meds discussed, and the pt agreed and understood. Attend groups and activities Supportive therapy and psychoeducation [place] for abstinence CBT for relapse prevention Refer to self help groups and psych outpt or IOP Smoking cessation with [place] Nicotine patch if needed See a pain upon d/c Estimated Date of D/C: 10/16/17 - Smoking Cessation Smoking Cessation Initiated: Yes
[2017-10-12] MEDS ORDERED: Magnesium Hydroxide Susp 30 ml UD PO ONE (21:00)
--- NOTE | 2017-10-13 11:54 | PCM.PYCHPN ---
Psychiatric Progress Note - Psychiatric Progress Note Patient seen today, length of contact: 16 min Patient Chief Complaint: I am still withdrawing.' Problems Identified/Issues Discussed: Patient seen and evaluated, chart reviewed and discussed with the nurse. Patient still reports some withdrawal symptoms including headaches and sweating. She reports irritable mood but denies any feelings of hopelessness and helplessness. She denies any SI/HI/AVH. She is taking medication and denies any side effects. She needs more time for stabilization. Supportive therapy and psychoeducation were given. Medication Change: Yes (detox changes daily) Medical Record Reviewed: Yes Mental Status Examination - Cognitive Function Orientation: Person, Place, Situation, Time Memory: Intact, Impaired Attention: WNL Concentration: Poor Association: WNL Fund of Knowledge: WNL - Mood Mood: Depressed, Anxious - Affect Affect: Constricted - Speech Speech: Appropriate - Formal Thought Process Formal Thought Process: No Impairment - Suicidal Ideation Suicidal Ideation: No - Homicidal Ideation Homicidal Ideation: No Goal/Treatment Plan - Goal/Treatment Plan Need for Continued Stay: Discharge may exacerbated symptoms, Severe functional impairment Progress Toward Problem(s) and Goals/Treatment Plan: Opioid withdrawal Opioid use severe Alcohol use d/o - in early remission 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 Attend groups and activities Supportive therapy and psychoeducation [place] for abstinence CBT for relapse prevention Refer to self help groups and psych outpt or IOP Smoking cessation with [place] Nicotine patch if needed Estimated Date of D/C: 10/16/17
[2017-10-13] MEDS: Albuterol HFA 90 mcg/actuation (8 g) INH PRN (22:47)
--- NOTE | 2017-10-14 20:32 | CARD ---
APPROVED REPORT EKG Measurement Heart [id number] <Conclusion> Normal sinus rhythm Nonspecific ST and T wave abnormality Prolonged QT Abnormal ECG
--- NOTE | 2017-10-14 22:45 | PCM.PYCHPN ---
Psychiatric Progress Note - Psychiatric Progress Note Patient seen today, length of contact: 16 min Patient Chief Complaint: I am feeling little better.' Problems Identified/Issues Discussed: Patient seen and evaluated, chart reviewed and discussed with the nurse. Patient reports some improvement in her mood and some improvement in her withdrawal symptoms. She reports irritable mood but denies any SI/HI/AVH. She is taking medication and denies any side effects. She needs more time for stabilization. Supportive therapy and psychoeducation were given. Medication Change: Yes (detox changes daily) Medical Record Reviewed: Yes Mental Status Examination - Cognitive Function Orientation: Person, Place, Situation, Time Memory: Intact, Impaired Attention: WNL Concentration: Poor Association: WNL Fund of Knowledge: WNL - Mood Mood: Depressed, Anxious - Affect Affect: Constricted - Speech Speech: Appropriate - Formal Thought Process Formal Thought Process: No Impairment - Suicidal Ideation Suicidal Ideation: No - Homicidal Ideation Homicidal Ideation: No Goal/Treatment Plan - Goal/Treatment Plan Need for Continued Stay: Discharge may exacerbated symptoms, Severe functional impairment Progress Toward Problem(s) and Goals/Treatment Plan: Opioid withdrawal Opioid use severe Alcohol use d/o - in early remission 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 Attend groups and activities Supportive therapy and psychoeducation [place] for abstinence CBT for relapse prevention Refer to self help groups and psych outpt or IOP Smoking cessation with [place] Nicotine patch if needed Estimated Date of D/C: 10/16/17 - Smoking Cessation Smoking Cessation Initiated: No
[2017-10-14] MEDS: Albuterol HFA 90 mcg/actuation (8 g) INH PRN (23:16)
[2017-10-15 09:58] VITALS: RESP 20
--- NOTE | 2017-10-15 10:10 | PCM.PYCHDC ---
Mental Status Examination - Mental Status Examination Orientation: Person Discharge Summary - Discharge Note Consultations:: List each consultation separately and include: 1. Reason for request. 2. Findings. 3. Follow-up Summary of Hospital Course include:: 1. Description of specific treatment plan utilized for patients during their course of treatmen. 2. Summarize the time- course for resolution of acute symptoms and/or regressed behaviors. 3. Describe issues identified and worked on during hospitalization. 4. Describe medication utilized. 5. Describe medical problems identified and treated. 6. Reassessment of suicide risk Summary of Hospital Course: Pt is a 32 yo F who is single with one 12 yo daughter, lives with her mother and daughter and is employed. She is known from previous consultation for substance use and related seizures. She says hse has been seizure free since last year. She claims that she was in [facility] for a bout a month and given "insane amount of opiates" and very little PT. Then after 4 weeks when her insurance denied further treatment she was discharged (10/09) without any weaning off. She git into acute w and came to ED. She claims her brother gave her MJ to help with pain and that she was being given low dose Xanax in [facility]. She denies using it on the outside and denies drinking. Pt states she'd been taking 0.5 mg of Xanax three times per day for anxiety for the past 3-4 years. However, she stopped before last admission, but got some in [facility]. Pt also has a history of alcohol use disorder. She began drinking at 12 years old. States she has not used alcohol for several months now. She used to drink 2 pints of alcohol daily. History of one previous detox and no rehab. Denies all other substances including cocaine, heroin, cannabis, stimulants and nicotine. Pt complains of anxiety and depression again. Pt denies suicidal ideation, homicidal ideation, visual and auditory hallucinations. Psych Hx: Anxiety, PTSD (but does not exhibit symptoms). No psych admissions. One prior detox here. Family Psych Hx: One brother had psychosis, other alcohol cocaine and heroin dependence, 1 sister used marijuana, father was an alcoholic and was "abusive." PMHx: HTN, alcoholic hepatitis with decompensated liver failure in the past, seizure disorder, asthma CRC - Diagnosis (1) Opioid use disorder, severe, dependence Current Visit: Yes Status: Acute (2) GEOVANI (generalized anxiety disorder) Current Visit: Yes Status: Acute - Final Diagnosis (DSM 5) Condition upon Discharge: IMPROVED Disposition: HOME/ ROUTINE Follow-up Treatment Plan: Start taper with methadone Gabapentin for augmentation Consider lexapro for anxiety and depressive sxs As needed medications All risks, benefits and alternatives of the meds discussed, and the pt agreed and understood. Attend groups and activities Supportive therapy and psychoeducation [place] for abstinence CBT for relapse prevention Refer to self help groups and psych outpt or IOP Smoking cessation with [place] Nicotine patch if needed See a pain dr upon d/c Prescriptions/Medication Reconciliation: Albuterol HFA [Ventolin HFA 90 mcg/actuation (8 g)] 2 puff INH RQ4 PRN #1 inhaler PRN Reason: Shortness Of Breath Escitalopram [Lexapro] 10 mg PO DAILY #30 tab Gabapentin [Neurontin] 300 mg PO TID #90 cap traZODone [Desyrel] 50 mg PO HS PRN #30 tab PRN Reason: Insomnia
[2017-10-15 13:46] VITALS: BP 137/98; PULSE 88; TEMP 98.2; O2SAT 95
== END 2017-10-15 13:40 | DRG 745 ==
LOC: C.ER 20:24 → C.7D 10-11 02:35
PROC: HZ2ZZZZ Detoxification Services for Substance Abuse Treatment (ICD-10-PCS; principal; 2017-10-13)
DX: F11.23 Opioid dependence with withdrawal (principal); F32.9 Major depressive disorder, single episode, unspecified; F41.1 Generalized anxiety disorder; F43.10 Post-traumatic stress disorder, unspecified; G40.909 Epilepsy, unspecified, not intractable, without status epilepticus; I10 Essential (primary) hypertension; J45.909 Unspecified asthma, uncomplicated; F12.10 Cannabis abuse, uncomplicated; F19.10 Other psychoactive substance abuse, uncomplicated

== ENCOUNTER 2017-11-02 10:44 | Emergency (ER) | payer OTHER ==
[2017-11-02 10:47] VITALS: BMI 28.3
[2017-11-02 10:51] VITALS: BP 154/93; PULSE 83; RESP 20; TEMP 98.3; O2SAT 97
--- NOTE | 2017-11-02 11:21 | C.PDOC ---
History Of Present Illness 32 y/o female with asthma and htn, s/p left hip fracture and surgical repair September 10, presents with persistent pain to left groin/inguinal region not better with one tab 325 mg tylenol every 4 hours. no fevers. Time Seen by Provider: 11/02/17 11:00 Chief Complaint (Nursing): Lower Extremity Problem/Injury History Per: Patient History/Exam Limitations: no limitations Onset/Duration Of Symptoms: Days Current Symptoms Are (Timing): Still Present Severity: Moderate - Hip Description Of Injury: Other (recent surgical repair ) Past Medical History Reviewed: Historical Data, Nursing Documentation, Vital Signs Vital Signs: Last Vital Signs Temp 98.3 F 11/02/17 10:47 Pulse 83 11/02/17 10:47 Resp 20 11/02/17 10:47 BP 154/93 H 11/02/17 10:47 Pulse Ox 97 11/02/17 12:04 - Medical History PMH: Anxiety, Asthma, Fractures (left hip), HTN, Seizures (hx due to hx etoh abuse) Denies: Diabetes, Hepatitis, HIV, Chronic Kidney Disease, Sexually Transmitted Disease Other Surgeries: left hip surgery 09/10/17 - [facility] DETOXIFICATION SERVICES FOR SUBSTANCE ABUSE TREATMENT (10/11/17) DRAINAGE OF RIGHT PLEURAL CAVITY, PERCUTANEOUS APPROACH (11/06/16) INSERTION OF INFUSION DEV INTO SUP VENA CAVA, PERC APPROACH (11/06/16) REPOSITION LEFT UPPER FEMUR WITH INT FIX, OPEN APPROACH (09/09/17) Family History: States: Unknown Family Hx - Social History Hx Alcohol Use: Yes Hx Substance Use: Yes - Immunization History Hx Tetanus Toxoid Vaccination: No Hx Influenza Vaccination: Yes Hx Pneumococcal Vaccination: Yes Review Of Systems Constitutional: Negative for: Fever, Chills Genitourinary: Negative for: Pelvic Pain Musculoskeletal: Positive for: Other (left groin pain) Skin: Negative for: Rash, Bruising Neurological: Positive for: Numbness (decrease sensation along surgical scar). Negative for: Weakness Physical Exam - Physical Exam Appears: Non-toxic, Other (uncomfortable) Skin: Warm, Dry, Other (well healed surgical scar left lateral upper thigh) Gastrointestinal/Abdominal: Soft, No Tenderness Extremity: Other (painful rom at left hip, non tender to palation left hip, + tenderness to left inguinal region and left medial thigh. no swelling, erythema , or warmth noted. no left inguinal adenopathy.) Pulses: Left Femoral: Normal, Right Femoral: Normal, Left Dorsalis Pedis: Normal Gait: With Assistance (uses cane) ED Course And Treatment O2 Sat by Pulse Oximetry: 97 Medical Decision Making Medical Decision Making: discussed with Dr Cobb, recommends Tylenol #3, and pt to see him this coming Sunday. Disposition Counseled Patient/Family Regarding: Diagnosis, Need For Followup, Rx Given - Disposition Referrals: Clem Cobb MD [Staff Provider] - Disposition: HOME/ ROUTINE Disposition Time: 11:56 Condition: GOOD Additional Instructions: Please take Tylenol #3 as prescribed; may make you drowsy. You can take a regular strenght Tylenol (325 mg ) with the Tylenol with codeine. DO not exceed 4000 mg of Tylenol per day. Do not drive or operate machinery while taking this medicine. Follow up with Dr Cobb on Sunday. Prescriptions: Acetaminophen with Codeine [Tylenol with Codeine #3 Tablet] 1 each PO Q6 #10 tablet Instructions: Groin Strain (DC) Forms: [facility] ([place]), General Discharge Instructions - Clinical Impression Clinical Impression: Left groin pain
[2017-11-02] MEDS ORDERED: Acetaminophen-Codeine 300/30 mg Tab PO STA (11:51)
[2017-11-02] MEDS ORDERED: Acetaminophen-Codeine 300/30 mg Tab PO ONE (12:06)
== END 2017-11-02 12:12 | disposition home or self-care (01) ==
LOC: C.ER 10:44
DX: R10.32 Left lower quadrant pain (principal); I10 Essential (primary) hypertension

== ENCOUNTER 2017-12-02 19:04 | Emergency (ER) | payer OTHER ==
[2017-12-02 19:04] VITALS: BMI 28.3
[2017-12-02 19:08] VITALS: O2SAT 100
[2017-12-02 19:55] LABS: BASO # 0.1 K/uL (0.0-0.2); BASO % 0.9 % (0.0-2.0); EOS # 0.2 K/uL (0.0-0.7); EOS % 1.4 % (0.0-4.0); HEMOGLOBIN 14.4 g/dL (11.0-16.0); LYMPH # 2.3 K/uL (1.0-4.3); LYMPH % 20.3 % (20.0-40.0); MEAN CELL VOLUME 94.5 fL (81.0-99.0); MEAN CORPUSCULAR HEMOGLOBIN 32.1 pg (27.0-31.0); MEAN PLATELET VOLUME 8.9 fL (7.2-11.7); MONO # 0.4 K/uL (0.0-0.8); NEUT # 8.2 K/uL (1.8-7.0); NEUT % 73.4 % (50.0-75.0); RBC 4.49 Mil/uL (3.80-5.20); RED CELL DISTRIBUTION WIDTH 12.5 % (11.5-14.5); WHITE BLOOD COUNT 11.2 K/uL (4.8-10.8)
[2017-12-02 20:02] LABS: INR 1.2; PROTHROMBIN TIME 12.6 SECONDS (9.7-12.2)
[2017-12-02 20:07] LABS: CALCIUM 9.8 mg/dl (8.6-10.4); GFR AFRICAN-AMERICAN > 60; GFR NON-AFRICAN AMERICAN > 60
[2017-12-02 20:17] LABS: ALBUMIN 4.7 g/dL (3.5-5.0); ALT/SGPT 27 U/L (9-52); AST/SGOT 54 U/L (14-36); BLOOD UREA NITROGEN 14 mg/dL (7-17)
--- NOTE | 2017-12-02 20:23 | C.PDOC ---
History Of Present Illness 32 year old female presents to the ED complaining of low back pain that began following witnessed seizure today. As per boyfriend at bedside, patient had seizure-like activity while in the passenger seat lasting approximately 10 min. Symptoms then resolved with a brief post-ictal period, and patient began complaining of back pain afterwards. Otherwise denies any head trauma, bit tongue, incontinence, or other injuries. Patient has PMHx of seizures, anxiety, substance abuse, s/p hip surgery, and chronic left hip pain. States she takes an unknown seizure medication twice daily, but not every day. Time Seen by Provider: 12/02/17 20:07 Chief Complaint (Nursing): Back Pain History Per: Patient History/Exam Limitations: no limitations Onset/Duration Of Symptoms: Hrs Current Symptoms Are (Timing): Still Present Past Medical History Reviewed: Historical Data, Nursing Documentation, Vital Signs Vital Signs: Last Vital Signs Temp 98.1 F 12/02/17 19:08 Pulse 93 H 12/02/17 19:08 Resp 17 12/02/17 19:08 BP 141/95 H 12/02/17 19:08 Pulse Ox 100 12/02/17 20:24 - Medical History PMH: Anxiety, Asthma, Fractures (left hip), HTN, Seizures (hx due to hx etoh abuse), Chronic Pain (Left hip) Denies: Diabetes, Hepatitis, HIV, Chronic Kidney Disease, Sexually Transmitted Disease Other Surgeries: Left hip surgery - [facility] Procedures DETOXIFICATION SERVICES FOR SUBSTANCE ABUSE TREATMENT (10/11/17) DRAINAGE OF RIGHT PLEURAL CAVITY, PERCUTANEOUS APPROACH (11/06/16) INSERTION OF INFUSION DEV INTO SUP VENA CAVA, PERC APPROACH (11/06/16) REPOSITION LEFT UPPER FEMUR WITH INT FIX, OPEN APPROACH (09/09/17) Family History: States: Unknown Family Hx - Social History Hx Alcohol Use: Yes Hx Substance Use: Yes - Immunization History Hx Tetanus Toxoid Vaccination: No Hx Influenza Vaccination: Yes Hx Pneumococcal Vaccination: Yes Review Of Systems Except As Marked, All Systems Reviewed And Found Negative. ENT: Negative for: Other (Bit tongue) Gastrointestinal: Negative for: Nausea, Vomiting Genitourinary: Negative for: Incontinence Musculoskeletal: Positive for: Back Pain Neurological: Positive for: Seizures. Negative for: Headache, Dizziness Physical Exam - Physical Exam Appears: No Acute Distress, Other (Obese white female) Skin: Normal Color, Warm, Dry Head: Atraumatic, Normacephalic Eye(s): bilateral: Normal Inspection (w/ dilated pupils), PERRL, EOMI Nose: Normal Oral Mucosa: Moist Neck: Normal ROM, No Paracervical Tenderness, Supple Chest: Symmetrical Cardiovascular: Rhythm Regular, No Murmur Respiratory: Normal Breath Sounds, No Rales, No Rhonchi, No Wheezing Gastrointestinal/Abdominal: Soft, No Tenderness, No Distention Back: Other (Declines to allow examination of her lower back) Extremity: Bilateral: Atraumatic, Normal Color And Temperature, Normal ROM Neurological/Psych: Oriented x3, Normal Speech, Other (Neurologically intact; Bizarre, at times laughing and at times argumentative) ED Course And Treatment - Laboratory Results Result Diagrams: 12/02/17 19:46 12/02/17 19:46 O2 Sat by Pulse Oximetry: 100 (RA) Pulse Ox Interpretation: Normal Medical Decision Making Medical Decision Making: Impression: h/o substance abuse, chronic pain, L hip surgery ? seizure today with resultant back pain has Tramadol @ home from 11/15/17 filled Tramadol 50 mg #30 Time: 19:41 Initial Plan: --CMP --CBC --Urine drug screen --Alcohol serum --Magnesium --Phosphorous --PTT --Prothrombin time --UA --Motrin 600 mg PO --Tramadol 100 mg PO labs reviewed, and are wnl intermittently laughing, bizarre. [facility] from 5 prescribers consider chronic pain referral Disposition Doctor Will See Patient In The: Office Counseled Patient/Family Regarding: Studies Performed, Diagnosis - Disposition Referrals: [facility] [Outside] [facility] [Outside] [facility] [Outside] [facility] [Outside] Disposition: HOME/ ROUTINE Disposition Time: 20:23 Condition: GOOD Additional Instructions: ice packs to lower back 1/2 hour per hour, nothing hot MOtrin/Advil 400-600 mg every 6 hours as needed Tramdol 50 mg every 6 hours as needed Seek refills of your chronic pain meds from your PMD or a Chronic Pain Specialist Instructions: Low Back Pain in Adults, Chronic Pain (DC) Forms: [employer] (Occitan) - Clinical Impression Clinical Impression: Low back strain, Chronic pain disorder - Scribe Statement The provider has reviewed the documentation as recorded by the Scribe (Shyann Dubois) Provider Attestation: All medical record entries made by the Scribe were at my direction and personally dictated by me. I have reviewed the chart and agree that the record accurately reflects my personal performance of the history, physical exam, medical decision making, and the department course for this patient. I have also personally directed, reviewed, and agree with the discharge instructions and disposition.
[2017-12-02 20:37] LABS: SQUAMOUS EPITHIAL 3 /hpf (0-5); URINE BILIRUBIN NEGATIVE (NEGATIVE); URINE BLOOD 1+ (NEGATIVE); URINE CLARITY Clear (Clear); URINE COLOR Yellow (YELLOW); URINE GLUCOSE (UA) NORMAL (Normal); URINE LEUKOCYTE ESTERASE NEG Leu/uL (Negative); URINE PROTEIN 2+ mg/dL (NEGATIVE); URINE UROBILINOGEN NORMAL mg/dL (0.2-1.0)
[2017-12-02 20:39] VITALS: BP 114/66; PULSE 85; RESP 16; TEMP 98.3
[2017-12-02 20:49] LABS: BARBITURATES, UR NEGATIVE (NEGATIVE); BENZODIAZEPINES, UR NEGATIVE (NEGATIVE); OPIATES, UR NEGATIVE (NEGATIVE); PHENCYCLIDINE, UR NEGATIVE (NEGATIVE)
[2017-12-02] MEDS ORDERED: Oxycodone/Acetaminophen 5/325 mg Tab PO STA (20:59)
[2017-12-02] MEDS ORDERED: Oxycodone/Acetaminophen 5/325 mg Tab ONE (21:09)
== END 2017-12-02 21:30 | disposition home or self-care (01) ==
LOC: C.ER 19:04
DX: S39.012A Strain of muscle, fascia and tendon of lower back, initial encounter (principal); X58.XXXA Exposure to other specified factors, initial encounter; G89.29 Other chronic pain; I10 Essential (primary) hypertension; R56.9 Unspecified convulsions

== ENCOUNTER 2018-04-13 15:49 | Emergency (ER) | payer SELFPAY ==
[2018-04-13 16:01] VITALS: BMI 26.6
--- NOTE | 2018-04-13 17:55 | C.PDOC ---
History Of Present Illness 33 year old female with history of alcoholic cirrhosis presents to ED complaining of abdominal pain assoiciated with vomiting for the past 4 days. Patient reports she cannot keep any food down. Patient states she drinks sporadically and last drank on April 06, 2018. Patient reports she is suppose to be taking lactulose and blood pressure medications, but she lost her insurance 2 months ago so she is not taking them. Denies fever, chills, diarrhea, shortness of breath, weakness, numbness. Time Seen by Provider: 04/13/18 17:08 Chief Complaint (Nursing): Abdominal Pain History Per: Patient History/Exam Limitations: no limitations Onset/Duration Of Symptoms: Days Current Symptoms Are (Timing): Still Present Past Medical History Reviewed: Historical Data, Nursing Documentation, Vital Signs Vital Signs: Last Vital Signs Temp 98.5 F 04/13/18 16:02 Pulse 87 04/13/18 16:02 Resp 18 04/13/18 16:02 BP 166/124 H 04/13/18 16:02 Pulse Ox 97 04/13/18 16:02 - Medical History PMH: Anxiety, Asthma, Fractures (left hip), HTN, Seizures (hx due to hx etoh abuse), Chronic Pain (Left hip) Denies: Diabetes, Hepatitis, HIV, Chronic Kidney Disease, Sexually Transmitted Disease Surgical History: No Surg Hx - [facility] Procedures DETOXIFICATION SERVICES FOR SUBSTANCE ABUSE TREATMENT (10/11/17) DRAINAGE OF RIGHT PLEURAL CAVITY, PERCUTANEOUS APPROACH (11/06/16) INSERTION OF INFUSION DEV INTO SUP VENA CAVA, PERC APPROACH (11/06/16) REPOSITION LEFT UPPER FEMUR WITH INT FIX, OPEN APPROACH (09/09/17) Family History: States: No Known Family Hx - Social History Hx Alcohol Use: Yes Hx Substance Use: Yes - Immunization History Hx Tetanus Toxoid Vaccination: No Hx Influenza Vaccination: No Hx Pneumococcal Vaccination: Yes Review Of Systems Constitutional: Negative for: Fever, Chills Cardiovascular: Negative for: Chest Pain Respiratory: Negative for: Cough, Shortness of Breath Gastrointestinal: Positive for: Vomiting, Abdominal Pain. Negative for: Diarrhea Neurological: Negative for: Weakness, Numbness Physical Exam - Physical Exam Appears: Non-toxic, Other (Uncomfortable) Skin: Warm, Dry Head: Atraumatic, Normacephalic Eye(s): bilateral: PERRL, EOMI Oral Mucosa: Moist Neck: Supple Chest: Symmetrical, No Deformity Cardiovascular: Rhythm Regular Respiratory: Normal Breath Sounds, No Rales, No Rhonchi, No Wheezing Gastrointestinal/Abdominal: Soft, Tenderness (Diffuse abdominal tenderness.), No Distention, Other (No hepatomegaly) Neurological/Psych: Oriented x3, Normal Motor, Normal Sensation ED Course And Treatment - Laboratory Results Result Diagrams: 04/13/18 18:18 04/13/18 18:18 O2 Sat by Pulse Oximetry: 97 (RA) Pulse Ox Interpretation: Normal - CT Scan/US CT abd and pelvis Other Rad Studies (CT/US): Read By Radiologist, Radiology Report Reviewed CT/US Interpretation: Name:LINETTE OSUNA Exam Date:Apr 13, 2018 8:10:55 PM EDT. Modality Type:CT\SR. Description:CT - ABDOMEN AND PELVIS. Gender:F Laterality:Not applicable. :84 Referring Physician:SIENA MOORE MD EXAM: CT Abdomen and Pelvis with IV contrast. CLINICAL HISTORY: Abd pain. TECHNIQUE: Axial computed tomography images of the abdomen and pelvis with intravenous contrast. CONTRAST: With intravenous contrast. COMPARISON: None provided. FINDINGS: LUNG BASES: The lung bases appear clear. No pleural effusions are seen. LIVER: Unremarkable. GALLBLADDER AND BILE DUCTS: The gallbladder appears within normal limits. No radioopaque gallstones are seen. No biliary ductal dilatation is evident. PANCREAS: Unremarkable. SPLEEN: Unremarkable. ADRENAL GLANDS: Unremarkable. KIDNEYS, URETERS, AND BLADDER: The kidneys appear within normal limits. There is no hydronephrosis or hydroureter. No urinary calculi are seen. STOMACH AND BOWEL: Unremarkable appearance of the stomach and bowel. No evidence of bowel obstruction. No evidence suggesting enteritis or colitis. Mild diverticular changes present in sigmoid colon. APPENDIX: No evidence of acute appendicitis on CT examination. PERITONEUM: No free fluid. No free air. LYMPH NODES: No lymphadenopathy is evident. REPRODUCTIVE: Unremarkable as visualized. VASCULATURE: No evidence of abdominal aortic aneurysm. BONES: There is moderate compression deformity of the T12 vertebral body likely chronic in nature. Orthopedic fixation device seen left proximal femur. IMPRESSION: No acute intra-abdominal or pelvic abnormality. Mild diverticular changes sigmoid colon. Compression deformity of the T12 vertebral body. Orthopedic fixation device left proximal femur. Medical Decision Making Medical Decision Making: Plan: * Labs * Urinalysis * CT abd/pelvis Patient given toradol ivp and zofran ivp for pain/nausea. Workup unremarkable. Dr. Carty saw patient in the ED, agrees with plan to discharge home. Patient was given Rx for lactulose since she ran out two months ago. Disposition - Disposition Disposition: HOME/ ROUTINE Disposition Time: 21:30 Condition: FAIR Additional Instructions: LINETTE OSUNA, thank you for letting us take care of you today. Your provider was Siena Moore MD and you were treated for ABD PAIN/VOMITING. The emergency medical care you received today was directed at your acute symptoms. If you were prescribed any medication, please fill it and take as directed. It may take several days for your symptoms to resolve. Return to the Emergency Department if your symptoms worsen, do not improve, or if you have any other problems. Please contact your doctor or call one of the physicians/clinics you have been referred to that are listed on the Patient Visit Information form that is inc luded in your discharge packet. Bring any paperwork you were given at discharge with you along with any medications you are taking to your follow up visit. Our treatment cannot replace ongoing medical care by a primary care provider outside of the emergency department. Thank you for allowing the [facility] team to be part of your care today. If you had an X-Ray or CT scan: A Radiologist will review the ED reading if any change in treatment is needed we will contact you. If you had a blood, urine, or wound culture: It will take several days for the results, if any change in treatment is needed we will contact you. If you had an STI test: It will take 48 hours for the results. Please call after 1 week if you have not heard back. Prescriptions: RX: Lactulose 20 gm PO DAILY 20 Days solution Instructions: Acute Abdomen (Belly Pain), Adult (DC) Forms: [employer] (Finnish) - Clinical Impression Clinical Impression: Abdominal pain, Cirrhosis - Scribe Statement The provider has reviewed the documentation as recorded by the Aditya Agudeloed Provider Attestation: All medical record entries made by the Aditya were at my direction and personally dictated by me. I have reviewed the chart and agree that the record accurately reflects my personal performance of the history, physical exam, medical decision making, and the department course for this patient. I have also personally directed, reviewed, and agree with the discharge instructions and disposition.
[2018-04-13 18:21] LABS: BASO # 0.1 K/uL (0.0-0.2); BASO % 0.6 % (0.0-2.0); EOS # 0.2 K/uL (0.0-0.7); EOS % 2.4 % (0.0-4.0); HEMOGLOBIN 13.5 g/dL (11.0-16.0); LYMPH % 24.1 % (20.0-40.0); MEAN CELL VOLUME 96.6 fL (81.0-99.0); MEAN CORPUSCULAR HEMOGLOBIN 33.1 pg (27.0-31.0); MEAN CORPUSCULAR HGB CONC 34.3 g/dL (33.0-37.0); MEAN PLATELET VOLUME 7.5 fL (7.2-11.7); MONO # 0.4 K/uL (0.0-0.8); MONO % 4.8 % (0.0-10.0); NEUT # 5.6 K/uL (1.8-7.0); NEUT % 68.1 % (50.0-75.0); NRBC % 0.1 % (0.0-2.0); RBC 4.07 Mil/uL (3.80-5.20); RED CELL DISTRIBUTION WIDTH 13.8 % (11.5-14.5); WHITE BLOOD COUNT 8.2 K/uL (4.8-10.8)
[2018-04-13 18:30] LABS: INR 1.2; PROTHROMBIN TIME 13.2 SECONDS (9.7-12.2)
[2018-04-13 18:34] LABS: ALB/GLOB RATIO 1.2 (1.0-2.1); ALBUMIN 4.5 g/dL (3.5-5.0); ALT/SGPT 29 U/L (9-52); AST/SGOT 32 U/L (14-36); BLOOD UREA NITROGEN 9 mg/dL (7-17); CALCIUM 9.2 mg/dl (8.6-10.4); GFR NON-AFRICAN AMERICAN > 60; LIPASE 49 U/L (23-300)
[2018-04-13 19:48] LABS: SQUAMOUS EPITHIAL 16 /hpf (0-5); URINE AMORPHOUS SEDIMENT RARE /ul (<OCC); URINE BACTERIA RARE (<OCC); URINE BILIRUBIN NEGATIVE (NEGATIVE); URINE BLOOD NEGATIVE (NEGATIVE); URINE CLARITY Clear (Clear); URINE COLOR Yellow (YELLOW); URINE GLUCOSE (UA) NORMAL (Normal); URINE LEUKOCYTE ESTERASE NEG Leu/uL (Negative); URINE PROTEIN NEGATIVE (NEGATIVE)
[2018-04-13] MEDS ORDERED: Iodixanol 320 MG/ML 100 ML BOTTLE IV ONE (20:08)
[2018-04-13 21:12] VITALS: BP 131/89; PULSE 65; RESP 18; TEMP 99.2
[2018-04-13 21:39] VITALS: O2SAT 97
--- NOTE | 2018-04-14 12:04 | CT ---
Date of service: 04/13/2018 PROCEDURE: CT Abdomen and Pelvis with contrast HISTORY: abdominal pain COMPARISON: CT abdomen and pelvis without IV contrast performed 11/12/16 TECHNIQUE: Contrast dose: 100 mL Visipaque IV Radiation dose: Total exam DLP = 561.27 mGy-cm. This CT exam was performed using one or more of the following dose reduction techniques: Automated exposure control, adjustment of the mA and/or kV according to patient size, and/or use of iterative reconstruction technique. FINDINGS: LOWER THORAX: No visible consolidation, pleural effusion, or pneumothorax. LIVER: Hepatomegaly. Hypoattenuation of the liver compatible with hepatic steatosis. GALLBLADDER AND BILE DUCTS: Unremarkable. PANCREAS: Unremarkable. SPLEEN: Unremarkable. ADRENALS: Unremarkable. KIDNEYS AND URETERS: The kidneys enhance symmetrically. No hydronephrosis or obstructing calculus identified. VASCULATURE: No aortic aneurysm. BOWEL: Stomach is nondistended. Lack of oral contrast limits evaluation for bowel pathology. Bowel loops appear within normal limits of caliber without evidence of obstruction. Mild diverticulosis without CT evidence of acute diverticulitis. APPENDIX: The appendix appears within normal limits of caliber. No secondary signs of acute appendicitis. PERITONEUM: No significant free fluid. No definite free air. LYMPH NODES: No bulky adenopathy identified. BLADDER: Unremarkable. REPRODUCTIVE: The uterus is present. Suspected 17 mm right fundal fibroid. Probable small bilateral ovarian cysts. BONES: Degenerative changes. Moderate compression fracture deformity T12. Postsurgical fixation left proximal femur. OTHER FINDINGS: None. IMPRESSION: Suspected 17 mm right fundal fibroid. Probable small bilateral ovarian cysts. Recommend further evaluation with pelvic ultrasound. Marked hepatomegaly. Hypoattenuation of the liver compatible with hepatic steatosis. Mild diverticulosis without CT evidence of acute diverticulitis. Age indeterminate compression fracture T12, new since 11/12/16 MRI may be considered if indicated. Preliminary impression was provided by [facility].
== END 2018-04-13 21:21 | disposition home or self-care (01) ==
LOC: C.ER 15:49
DX: K74.60 Unspecified cirrhosis of liver (principal); R10.9 Unspecified abdominal pain; I10 Essential (primary) hypertension
CPT/HCPCS: 74177; 80053; 81001; 82140; 83690; 83735; 84100; 85025; 85610; 85730; 96374; 96375; 99285; J1885; J2405; Q9967

== ENCOUNTER 2018-06-18 12:52 | Emergency (ER) | payer MEDICAID ==
[2018-06-18 12:53] VITALS: BMI 26.6
[2018-06-18 13:03] VITALS: RESP 18
[2018-06-18 14:01] LABS: BASO % 0.4 % (0.0-2.0); EOS # 0.2 K/uL (0.0-0.7); EOS % 2.4 % (0.0-4.0); LYMPH % 21.8 % (20.0-40.0); MEAN CORPUSCULAR HEMOGLOBIN 34.3 pg (27.0-31.0); MEAN CORPUSCULAR HGB CONC 34.7 g/dL (33.0-37.0); MEAN PLATELET VOLUME 9.2 fL (7.2-11.7); MONO # 0.4 K/uL (0.0-0.8); MONO % 4.4 % (0.0-10.0); NEUT # 6.5 K/uL (1.8-7.0); NRBC % 0.1 % (0.0-2.0); RBC 4.07 Mil/uL (3.80-5.20); WHITE BLOOD COUNT 9.1 K/uL (4.8-10.8)
[2018-06-18 14:02] LABS: MEAN CELL VOLUME 99.1 fL (81.0-99.0)
[2018-06-18 14:05] LABS: HCG,QUALITATIVE URINE POSITIVE (NEGATIVE)
[2018-06-18 14:06] LABS: SQUAMOUS EPITHIAL 2 /hpf (0-5); URINE BILIRUBIN NEGATIVE (NEGATIVE); URINE BLOOD NEGATIVE (NEGATIVE); URINE CLARITY Clear (Clear); URINE COLOR Yellow (YELLOW); URINE GLUCOSE (UA) NORMAL (Normal); URINE LEUKOCYTE ESTERASE TRACE Leu/uL (Negative); URINE PROTEIN NEGATIVE (NEGATIVE); URINE UROBILINOGEN NORMAL mg/dL (0.2-1.0)
[2018-06-18 14:15] LABS: ALB/GLOB RATIO 1.3 (1.0-2.1); ALBUMIN 4.8 g/dL (3.5-5.0); ALT/SGPT 72 U/L (9-52); AST/SGOT 44 U/L (14-36); BLOOD UREA NITROGEN 8 mg/dL (7-17); CALCIUM 9.4 mg/dl (8.6-10.4); GFR NON-AFRICAN AMERICAN > 60
--- NOTE | 2018-06-18 14:23 | C.PDOC ---
History Of Present Illness 33 year old female () with PMH alcoholic cirrhosis and HTN presents to the ED complaining of pelvic pain associated with intermittent spotting for one week. Notes she sees blood when she wipes, but none today. Admits to vomiting this morning. PT is unsure when her last menses was, remembers she had one in April but unsure about May. Denies any fever, chills, diarrhea, back pain, hematuria, dysuria, vaginal discharge or any other associated symptoms. Time Seen by Provider: 06/18/18 13:03 Chief Complaint (Nursing): Abdominal Pain History Per: Patient History/Exam Limitations: no limitations Onset/Duration Of Symptoms: Days Current Symptoms Are (Timing): Still Present Location Of Pain/Discomfort: Suprapubic Quality Of Discomfort: "Pain" Associated Symptoms: Vomiting. denies: Fever, Chills, Diarrhea, Urinary Symptoms Past Medical History Reviewed: Historical Data, Nursing Documentation, Vital Signs Vital Signs: Last Vital Signs Temp 98.4 F 06/18/18 12:56 Pulse 95 H 06/18/18 12:56 Resp 18 06/18/18 12:56 BP 134/90 06/18/18 12:56 Pulse Ox 97 06/18/18 12:56 - Medical History PMH: Anxiety, Asthma, Fractures (left hip), HTN, Seizures (hx due to hx etoh abuse), Chronic Pain (Left hip) Denies: Diabetes, Hepatitis, HIV, Chronic Kidney Disease, Sexually Transmitted Disease Other Surgeries: Hx of surgeries - [facility] Procedures DETOXIFICATION SERVICES FOR SUBSTANCE ABUSE TREATMENT (10/11/17) DRAINAGE OF RIGHT PLEURAL CAVITY, PERCUTANEOUS APPROACH (11/06/16) INSERTION OF INFUSION DEV INTO SUP VENA CAVA, PERC APPROACH (11/06/16) REPOSITION LEFT UPPER FEMUR WITH INT FIX, OPEN APPROACH (09/09/17) Family History: States: No Known Family Hx - Social History Hx Alcohol Use: No (denies) Hx Substance Use: Yes (denies) - Immunization History Hx Tetanus Toxoid Vaccination: No Hx Influenza Vaccination: No Hx Pneumococcal Vaccination: Yes Review Of Systems Except As Marked, All Systems Reviewed And Found Negative. Constitutional: Negative for: Fever, Chills Gastrointestinal: Positive for: Vomiting, Abdominal Pain (pelvic ). Negative for: Diarrhea Genitourinary: Positive for: Vaginal Bleeding (spotting). Negative for: Dysuria, Hematuria Musculoskeletal: Negative for: Back Pain Physical Exam - Physical Exam Appears: Non-toxic, No Acute Distress Skin: Warm, Dry, No Rash Head: Atraumatic, Normacephalic Eye(s): bilateral: Normal Inspection, EOMI Nose: Normal Oral Mucosa: Moist Neck: Normal ROM, Supple Chest: Symmetrical Cardiovascular: Rhythm Regular Respiratory: Normal Breath Sounds, No Rales, No Rhonchi, No Wheezing Gastrointestinal/Abdominal: Soft, Tenderness (suprapubic tenderness ), No Guarding, No Rebound Back: No CVA Tenderness, No Vertebral Tenderness Extremity: Normal ROM Extremity: Bilateral: Atraumatic, Normal Color And Temperature, Normal ROM Neurological/Psych: Oriented x3, Normal Speech, Normal Cognition Gait: Steady ED Course And Treatment - Laboratory Results Result Diagrams: 06/18/18 13:56 06/18/18 13:56 O2 Sat by Pulse Oximetry: 97 (RA) Pulse Ox Interpretation: Normal - CT Scan/US US pel Other Rad Studies (CT/US): Read By Radiologist, Radiology Report Reviewed CT/US Interpretation: Accession No. : [id number]. Patient Name / ID : THAO SUE / [id number]. Exam Date : 06/18/2018 14:31:18 ( Approved ). Study Comment : Sex / Age : F / 33Y. Creator : Katelyn Canchola MD. Dictator : Katelyn Canchola MD. Bin Worker : Assembler Brazer : Katelyn Canchola MD. Approver2 : Report Date : 06/18/2018 15:59:04. My Comment : . Indication: preg, bleeding, pain. Comparison: None available. Technique: Transabdominal and transvaginal ultrasound of the pelvis. Findings: The uterus measures 10.3 x 5.9 x 6.4 cm. Anteverted. Probable posterior uterine fibroid measures 2.3 x 2.0 x 2.3 cm. The cervix measures approximately 3.9 cm. There is a single intrauterine fetus present. 2 mm yolk sac. The gestational sac measures 2.0 cm and is compatible with a gestational age of 6 weeks 3 days. The crown-rump length measures 1.0 cm and is compatible with a gestational age of 7 weeks 1 day. Question presence of a 2nd intrauterine gestational sac which measures approximately 1.1 x 0.8 x 0.9 cm, out of range for gestational age calculation versus subchorionic hemorrhage. Additionally, there is subchorionic hemorrhage measuring 2.0 x 0.3 x 1.4 cm. There is heart motion which measured 148.9 BPM. The right ovary measures 3.2 x 2.2 x 3.0 cm. 1.8 x 1.7 x 1.8 cm right ovarian corpus luteal cyst. The left ovary measures 2.8 x 2.2 x 2.3 cm. Flow was demonstrated to both ovaries. Small pelvic free fluid. Impression: Live single intrauterine with estimated gestational age 6 weeks 3 days by gestational sac calculation and 7 weeks 1 day by crown-rump length calculation. heart rate 148.9 bpm. Small subchorionic hemorrhage measures approximately 2.0 x 0.3 x 0.4 cm. Additional cystic focus is evident, possibly subchorionic hemorrhage versus 2nd gestational sac without pole or yolk sac (possibly blighted ovum). Small pelvic free fluid. Probable posterior uterine fibroid measures 2.3 x 2.0 x 2.3 cm. Advise an anomaly screen at 16-18 weeks gestational age. Progress Note: Blood and urine collected and sent to the lab for analysis. Patient treated with Tylenol. Pt was given US results and labs. PT notes she has an appointment with her OB in 3 days. Pt was instructed to follow up with her OB as scheduled or return to ER if symtpoms persist or worsen. Disposition - Disposition Disposition: HOME/ ROUTINE Disposition Time: 16:06 Condition: STABLE Additional Instructions: Your Beta HCG today in 137,000. Start vitamins. Follow up with your OB on Sunday as scheduled for repeat evaluation. Return to ER if symptoms persist or worsen. Instructions: Bleeding With (DC) Forms: [employer] (Occitan) - Clinical Impression Clinical Impression: First trimester bleeding - PA / VALIDATION MANAGER / Resident Statement MD/DO has reviewed & agrees with the documentation as recorded. - Scribe Statement The provider has reviewed the documentation as recorded by the Scribe Samina Ortiz All medical record entries made by the Aditya were at my direction and personally dictated by me. I have reviewed the chart and agree that the record accurately reflects my personal performance of the history, physical exam, medical decision making, and the department course for this patient. I have also personally directed, reviewed, and agree with the discharge instructions and disposition.
--- NOTE | 2018-06-18 16:02 | US ---
Indication: preg, bleeding, pain Comparison: None available Technique: Transabdominal and transvaginal ultrasound of the pelvis. Findings: The uterus measures 10.3 x 5.9 x 6.4 cm. Anteverted. Probable posterior uterine fibroid measures 2.3 x 2.0 x 2.3 cm. The cervix measures approximately 3.9 cm. There is a single intrauterine fetus present. 2 mm yolk sac. The gestational sac measures 2.0 cm and is compatible with a gestational age of 6 weeks 3 days. The crown-rump length measures 1.0 cm and is compatible with a gestational age of 7 weeks 1 day. Question presence of a 2nd intrauterine gestational sac which measures approximately 1.1 x 0.8 x 0.9 cm, out of range for gestational age calculation versus subchorionic hemorrhage. Additionally, there is subchorionic hemorrhage measuring 2.0 x 0.3 x 1.4 cm. There is heart motion which measured 148.9 BPM. The right ovary measures 3.2 x 2.2 x 3.0 cm. 1.8 x 1.7 x 1.8 cm right ovarian corpus luteal cyst. The left ovary measures 2.8 x 2.2 x 2.3 cm. Flow was demonstrated to both ovaries. Small pelvic free fluid. Impression: Live single intrauterine with estimated gestational age 6 weeks 3 days by gestational sac calculation and 7 weeks 1 day by crown-rump length calculation. heart rate 148.9 bpm. Small subchorionic hemorrhage measures approximately 2.0 x 0.3 x 0.4 cm. Additional cystic focus is evident, possibly subchorionic hemorrhage versus 2nd gestational sac without pole or yolk sac (possibly blighted ovum). Small pelvic free fluid. Probable posterior uterine fibroid measures 2.3 x 2.0 x 2.3 cm. Advise an anomaly screen at 16-18 weeks gestational age.
[2018-06-18 16:19] VITALS: BP 119/80; PULSE 77; TEMP 99
[2018-06-18 18:31] VITALS: O2SAT 97
== END 2018-06-18 16:30 | disposition home or self-care (01) ==
LOC: C.ER 12:52
DX: O46.91 Antepartum hemorrhage, unspecified, first trimester (principal); Z3A.01 Less than 8 weeks gestation of pregnancy